=== PATIENT | male | born 1965 ===

== ENCOUNTER 2017-01-15 11:53 | Inpatient (IN) | payer MEDICAID, MEDICARE ==
[2017-01-15 11:53] VITALS: BMI 34.3
--- NOTE | 2017-01-15 12:30 | C.PDOC ---
History Of Present Illness 51 y/o male, with past history of previous vascular surgery, left above the knee amputation, bypass surgeries, presents to ED with c/o R 5th toe appearing blue-acrri in color. Patient advised to come to ER by Dr. Lee. Denies fever, chills, chest pain, SOB, nausea, vomiting, or other associated symptoms. (+) history of smoking. Time Seen by Provider: 01/15/17 12:08 Chief Complaint (Nursing): Lower Extremity Problem/Injury History Per: Patient History/Exam Limitations: no limitations Onset/Duration Of Symptoms: Days Current Symptoms Are (Timing): Still Present Recent travel outside of the [place]: No Past Medical History Reviewed: Historical Data, Nursing Documentation, Vital Signs Vital Signs: Last Vital Signs Temp 98.1 F 01/15/17 12:00 Pulse 96 H 01/15/17 12:00 Resp 20 01/15/17 12:00 BP 134/76 01/15/17 12:00 Pulse Ox 100 01/15/17 12:00 - Medical History PMH: Anxiety, Asthma, COPD, Depression (pt. drinks and smokes for depression), Diverticulitis, Gastritis, HTN, Hypercholesterolemia - [facility] Procedures DETACHMENT AT LEFT 2ND TOE, COMPLETE, OPEN APPROACH (05/08/15) DETACHMENT AT LEFT FEMORAL REGION, OPEN APPROACH (07/06/15) DETACHMENT AT LEFT FOOT, PARTIAL 1ST RAY, OPEN APPROACH (06/01/15) DETACHMENT AT LEFT FOOT, PARTIAL 2ND RAY, OPEN APPROACH (06/01/15) DETACHMENT AT LEFT FOOT, PARTIAL 3RD RAY, OPEN APPROACH (06/01/15) DETACHMENT AT LEFT FOOT, PARTIAL 4TH RAY, OPEN APPROACH (06/01/15) DETACHMENT AT LEFT FOOT, PARTIAL 5TH RAY, OPEN APPROACH (06/01/15) DILATION OF L EXT ILIAC ART WITH INTRALUM DEV, PERC APPROACH (06/01/15) DILATION OF L FEM ART WITH INTRALUM DEV, PERC APPROACH (05/08/15) DILATION OF L FOOT ART WITH INTRALUM DEV, PERC APPROACH (05/08/15) EXCISION OF L FOOT SUBCU/FASCIA, OPEN APPROACH (07/06/15) EXCISION OF SIGMOID COLON, OPEN APPROACH (11/16/15) EXTIRPATION OF MATTER FROM L EXT ILIAC ART, PERC APPROACH (06/01/15) FLUOROSCOPY OF SUPERIOR VENA CAVA, GUIDANCE (07/06/15) INSERTION OF INFUSION DEV INTO SUP VENA CAVA, PERC APPROACH (07/06/15) INTRODUCE LOCAL ANESTH IN PERIPH NRV, PLEXI, PERC (11/16/15) INTRODUCE OTH THROMBOLYTIC IN PERIPH VEIN, PERC (06/01/15) REPAIR BLADDER, OPEN APPROACH (11/16/15) Family History: States: Unknown Family Hx - Social History Hx Tobacco Use: Yes Hx Alcohol Use: Yes - Immunization History Hx Tetanus Toxoid Vaccination: Yes Hx Influenza Vaccination: Yes Hx Pneumococcal Vaccination: Yes Review Of Systems Except As Marked, All Systems Reviewed And Found Negative. Constitutional: Negative for: Fever, Chills Cardiovascular: Negative for: Chest Pain Respiratory: Negative for: Cough, Shortness of Breath, Wheezing Gastrointestinal: Negative for: Nausea, Vomiting Skin: Positive for: Other (discoloration R 5th toe). Negative for: Rash Physical Exam - Physical Exam Appears: Non-toxic, No Acute Distress Skin: Normal Color, Warm, Dry Head: Atraumatic, Normacephalic Oral Mucosa: Moist Chest: Symmetrical Cardiovascular: Rhythm Regular Respiratory: Normal Breath Sounds, No Rales, No Rhonchi, No Wheezing Gastrointestinal/Abdominal: Soft, No Tenderness, No Guarding, No Rebound Back: Normal Inspection Extremity: Normal ROM, Other (L AKA, R 5th toe discolored, tender ) Neurological/Psych: Oriented x3 ED Course And Treatment O2 Sat by Pulse Oximetry: 100 (RA) Pulse Ox Interpretation: Normal Progress Note: EKG, CxR, bloodwork. R foot x-ray ordered. 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 - Scribe Statement The provider has reviewed the documentation as recorded by the Scribe SM All medical record entries made by the Scribe were at my direction and personally dictated by me. I have reviewed the chart and agree that the record accurately reflects my personal performance of the history, physical exam, medical decision making, and the department course for this patient. I have also personally directed, reviewed, and agree with the discharge instructions and disposition.
--- NOTE | 2017-01-15 12:39 | C.PDOC ---
History Of Present Illness 51 y/o male, with past history of previous vascular surgery multiple bypass grafts to lower extremities and left above the knee amputation presents to ED with c/o R 5th toe pain and appearing blue-carri in color. Patient states he is concerned it might be becoming gangrenous. Notes he was advised to come to ER by Dr. Lee. Denies fever, chills, chest pain, SOB, nauesa, vomiting, or other associated symptoms. Notes history of smoking. Time Seen by Provider: 01/15/17 12:08 Chief Complaint (Nursing): Lower Extremity Problem/Injury History Per: Patient History/Exam Limitations: no limitations Onset/Duration Of Symptoms: Days Current Symptoms Are (Timing): Still Present Severity: Mild Recent travel outside of the [place]: No Past Medical History Reviewed: Historical Data, Nursing Documentation, Vital Signs Vital Signs: Last Vital Signs Temp 98.1 F 01/15/17 14:19 Pulse 86 01/15/17 14:19 Resp 18 01/15/17 14:19 BP 103/69 01/15/17 14:19 Pulse Ox 100 01/15/17 15:56 - Medical History PMH: Anxiety, Asthma, COPD, Depression (pt. drinks and smokes for depression), Diverticulitis, Gastritis, HTN, Hypercholesterolemia Other PMH: PVD Other Surgeries: left BKA, multiple bypass surgery lower extremities - [facility] Procedures DETACHMENT AT LEFT 2ND TOE, COMPLETE, OPEN APPROACH (05/08/15) DETACHMENT AT LEFT FEMORAL REGION, OPEN APPROACH (07/06/15) DETACHMENT AT LEFT FOOT, PARTIAL 1ST RAY, OPEN APPROACH (06/01/15) DETACHMENT AT LEFT FOOT, PARTIAL 2ND RAY, OPEN APPROACH (06/01/15) DETACHMENT AT LEFT FOOT, PARTIAL 3RD RAY, OPEN APPROACH (06/01/15) DETACHMENT AT LEFT FOOT, PARTIAL 4TH RAY, OPEN APPROACH (06/01/15) DETACHMENT AT LEFT FOOT, PARTIAL 5TH RAY, OPEN APPROACH (06/01/15) DILATION OF L EXT ILIAC ART WITH INTRALUM DEV, PERC APPROACH (06/01/15) DILATION OF L FEM ART WITH INTRALUM DEV, PERC APPROACH (05/08/15) DILATION OF L FOOT ART WITH INTRALUM DEV, PERC APPROACH (05/08/15) EXCISION OF L FOOT SUBCU/FASCIA, OPEN APPROACH (07/06/15) EXCISION OF SIGMOID COLON, OPEN APPROACH (11/16/15) EXTIRPATION OF MATTER FROM L EXT ILIAC ART, PERC APPROACH (06/01/15) FLUOROSCOPY OF SUPERIOR VENA CAVA, GUIDANCE (07/06/15) INSERTION OF INFUSION DEV INTO SUP VENA CAVA, PERC APPROACH (07/06/15) INTRODUCE LOCAL ANESTH IN PERIPH NRV, PLEXI, PERC (11/16/15) INTRODUCE OTH THROMBOLYTIC IN PERIPH VEIN, PERC (06/01/15) REPAIR BLADDER, OPEN APPROACH (11/16/15) Family History: States: Unknown Family Hx - Social History Hx Tobacco Use: Yes Hx Alcohol Use: Yes Hx Substance Use: No - Immunization History Hx Tetanus Toxoid Vaccination: Yes Hx Influenza Vaccination: Yes Hx Pneumococcal Vaccination: No Review Of Systems Except As Marked, All Systems Reviewed And Found Negative. Constitutional: Negative for: Fever, Chills Cardiovascular: Negative for: Chest Pain Respiratory: Negative for: Cough, Shortness of Breath Gastrointestinal: Negative for: Nausea, Vomiting Musculoskeletal: Positive for: Foot Pain (right) Skin: Positive for: Other (discoloration right 5th toe). Negative for: Rash Neurological: Negative for: Weakness, Numbness, Headache Physical Exam - Physical Exam Appears: Non-toxic, No Acute Distress Skin: Normal Color, Warm, Dry Head: Atraumatic, Normacephalic Chest: Symmetrical Cardiovascular: Rhythm Regular, No Murmur Respiratory: Normal Breath Sounds, No Rales, No Rhonchi, No Wheezing Gastrointestinal/Abdominal: Soft, No Tenderness Back: Normal Inspection Extremity: Normal ROM, Capillary Refill (< 2 sec.), Other (Left AKA. R 5th toe + blue appearance with tenderness.) Neurological/Psych: Oriented x3, Normal Speech, Normal Cognition Gait: Unable To Assess ED Course And Treatment - Laboratory Results Result Diagrams: 01/15/17 13:26 01/15/17 13:26 Lab Interpretation: No Acute Changes ECG: Interpreted By Me ECG Rhythm: Sinus Rhythm ECG Interpretation: No Acute Changes Rate From EC O2 Sat by Pulse Oximetry: 100 (RA) Pulse Ox Interpretation: Normal - Radiology CXR: Interpreted by Me CXR Interpretation: Yes: No Acute Disease - Other Rad No standard instances X-Ray: Interpreted by Me Interpretation: Foot x-ray: neg Progress Note: EKG, CxR, bloodwork, R foot x-ray ordered. Treated with percocet 5/325 mg PO. 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 - Scribe Statement The provider has reviewed the documentation as recorded by the Scribe SM All medical record entries made by the Scribe were at my direction and personally dictated by me. I have reviewed the chart and agree that the record accurately reflects my personal performance of the history, physical exam, medical decision making, and the department course for this patient. I have also personally directed, reviewed, and agree with the discharge instructions and disposition. Decision To Admit - Pt Status Changed To: Hospital Disposition Of: Inpatient - Admit Certification Admit to Inpatient:: After my assessment, the patient will require hospitalization for at least two midnights. This is because of the severity of symptoms shown, intensity of services needed, and/or the medical risk in this patient being treated as an outpatient. - InPatient: Physician Admission Certification: I certify that this patient requires 2 or more midnights of care for the following reason:: PVD. Gangrene right foot - . Bed Request Type: Regular Admitting Physician: Jagdeep Lee Patient Diagnosis: Diabetes mellitus, PAD (peripheral artery disease), Gangrene of toe of right foot
--- NOTE | 2017-01-15 13:26 | RAD ---
HISTORY: SOB COMPARISON: CTA chest performed 08/17/15 TECHNIQUE: Chest PA and lateral FINDINGS: LUNGS: No focal consolidation. Please note that chest x-ray has limited sensitivity for the detection of pulmonary masses. PLEURA: No significant pleural effusion identified. No definite pneumothorax . CARDIOVASCULAR: The cardiomediastinal silhouette appears within normal limits of size. OSSEOUS STRUCTURES: Degenerative changes of the spine. VISUALIZED UPPER ABDOMEN: Unremarkable. OTHER FINDINGS: None. IMPRESSION: No focal consolidation, significant pleural effusion, or definite pneumothorax identified.
[2017-01-15] MEDS ORDERED: Oxycodone/Acetaminophen 5/325 mg Tab PO STA (13:27)
[2017-01-15 13:32] LABS: BASO # 0.1 K/uL (0.0-0.2); BASO % 0.7 % (0.0-2.0); EOS # 0.1 K/uL (0.0-0.7); EOS % 1.4 % (0.0-4.0); HEMATOCRIT 42.7 % (35.0-51.0); LYMPH # 1.8 K/uL (1.0-4.3); LYMPH % 19.8 % (20.0-40.0); MEAN CELL VOLUME 98.9 fL (80.0-94.0); MEAN CORPUSCULAR HGB CONC 34.4 g/dL (33.0-37.0); MEAN PLATELET VOLUME 8.3 fL (7.2-11.7); MONO # 0.7 K/uL (0.0-0.8); MONO % 7.8 % (0.0-10.0); RED CELL DISTRIBUTION WIDTH 15.5 % (11.5-14.5)
[2017-01-15 13:48] LABS: URINE BILIRUBIN NEGATIVE (NEGATIVE); URINE BLOOD NEGATIVE (NEGATIVE); URINE COLOR Yellow (YELLOW); URINE GLUCOSE (UA) NORMAL (Normal); URINE KETONE NEGATIVE (NEGATIVE); URINE LEUKOCYTE ESTERASE 1+ Leu/uL (Negative); URINE PROTEIN NEGATIVE (NEGATIVE); URINE UROBILINOGEN NORMAL mg/dL (0.2-1.0)
[2017-01-15] MEDS ORDERED: Oxycodone/Acetaminophen 5/325 mg Tab ONE (13:48)
[2017-01-15 13:51] LABS: ALKALINE PHOSPHATASE 112 U/L (38-126); ALT/SGPT 36 U/L (21-72); AST/SGOT 24 U/L (17-59); BILIRUBIN,TOTAL 0.4 mg/dL (0.2-1.3); BLOOD UREA NITROGEN 3 mg/dL (9-20); CALCIUM 7.3 mg/dl (8.6-10.4); CARBON DIOXIDE 27 mmol/L (22-30); CHLORIDE 100 mmol/L (98-107); GFR AFRICAN-AMERICAN > 60; GLUCOSE,RANDOM 158 mg/dL (75-110); POTASSIUM 3.5 mmol/L (3.6-5.2); SODIUM 135 mmol/L (132-148); TOTAL PROTEIN 7.1 g/dL (6.3-8.3)
--- NOTE | 2017-01-15 13:53 | RAD ---
PROCEDURE: Right Foot Radiographs. HISTORY: pain COMPARISON: None available. FINDINGS: BONES: Osseous demineralization. No acute displaced fracture. JOINTS: No dislocation. SOFT TISSUES: Dense vascular calcifications. No evidence of radiopaque foreign body. OTHER FINDINGS: None. IMPRESSION: No acute displaced fracture, dislocation, or significant joint effusion identified. If symptoms persist, or if there is continued clinical concern, x-ray follow-up in 7-10 days should be considered.
[2017-01-15 13:56] LABS: ALB/GLOB RATIO 0.6 (1.0-2.1)
[2017-01-15 14:29] LABS: URINE BACTERIA MANY (<OCC); WBC URINE 20 /hpf (0-5)
[2017-01-15] MEDS ORDERED: cefTRIAXone IV 1 gm in Dextros 50 ML IV ONE (14:30)
--- NOTE | 2017-01-15 16:09 | CP.PCM.CON ---
History of Present Illness - History of Present Illness History of Present Illness: Vascular Surgery Consult Note. Dr. Fernández Re: Right foot non-healing wound 51yo M with extensive PVD history came to the ED due to a discolored right 5th toe. Patient stated he noticed worsening pain in his right foot two weeks ago and then noticed discoloration of his right 5th toe 5 days ago. He describes the toe as "black/blue and he pulled off his skin" and noted worsening pain. Patient also noticed swelling and numbness in his foot, slowly worsening. Patient denied trauma to the area. Denies fever, chills, nausea, or vomiting. PMHx: Anxiety, asthma/COPD, PVD, DM, HTN, HLD PSHx: Left AKA in 07/2015, Ex Lap low anterior bowel resection and closure of bladder fistula in 11/2015, Fem-Fem bypass 2011 at [facility] [place] Social Hx: smokes 1-1.5 packs per day for 40 years, alcohol 1 pt of vodka per day, smokes marijuana occasionally. Lives with brother NKDA Review of Systems - Review of Systems All systems: reviewed and no additional remarkable complaints except (as per HPI ) - Constitutional Constitutional: absent: Chills, Fever - Cardiovascular Cardiovascular: absent: Chest Pain, Dyspnea - Gastrointestinal Gastrointestinal: absent: Abdominal Pain, Nausea, Vomiting - Musculoskeletal Additional comments: "Phantom-limb" pain of left leg. Right lower extremity pain and swelling Past Patient History - Infectious Disease Hx of Infectious Diseases: None - Past Medical History & Family History Past Medical History?: Yes Past Family History: Reviewed and not pertinent - Past Social History Smoking Status: Heavy Smoker > 10 Cigarettes Daily Alcohol: Other (1 pint of vodka per day) Drugs: Denies Home Situation {Lives}: With Family (lives in apartment with brother) - CARDIAC Hx Hypercholesterolemia: Yes Hx Hypertension: Yes - PULMONARY Hx Asthma: Yes Hx Chronic Obstructive Pulmonary Disease (COPD): Yes - ENDOCRINE/METABOLIC Hx Endocrine Disorders: Yes Hx Diabetes Mellitus Type 1: Yes - INTEGUMENTARY Hx Dermatological Problems: Yes Other/Comment: PT HAS BROWN SPOTS ON ARMS AND BACK 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 - MUSCULOSKELETAL/RHEUMATOLOGICAL Hx Musculoskeletal Disorders: Yes Hx Falls: Yes Other/Comment: LT. BELOW KNEE AMPUTEE - GASTROINTESTINAL Hx Diverticulitis: Yes Hx Gastritis: Yes - GENITOURINARY/GYNECOLOGICAL Hx Genitourinary Disorders: Yes Hx Urinary Tract Infection: Yes Other/Comment: PT STATES HE HAS BROWN URINE AND SOME FECAL MATERIAL IN HIS URINE. - PSYCHIATRIC Hx Anxiety: Yes Hx Depression: Yes (pt. drinks and smokes for depression) Hx Substance Use: No - SURGICAL HISTORY Hx Surgeries: Yes Hx Amputation: Yes (LEFT BKA) Hx Angiogram: Yes Hx Cardiac Catheterization: Yes Hx Femoral-Popliteal Bypass Graft: Yes (X 3) Hx Vascular Surgery: Yes Other/Comment: Vascular bypass surgery femoral bilateral 2011,LT. BELOW KNEE AMPUTATION - ANESTHESIA Hx Anesthesia: Yes Hx Anesthesia Reactions: No Hx Malignant Hyperthermia: No Meds Allergies/Adverse Reactions: Allergies Allergy/AdvReac Type Severity Reaction Status Date / Time No Known Allergies Allergy Verified 01/15/17 12:37 Physical Exam - Constitutional Appears: Non-toxic, No Acute Distress, Older Than Stated Age - Head Exam Head Exam: ATRAUMATIC, NORMOCEPHALIC - Eye Exam Eye Exam: EOMI, Normal appearance - ENT Exam ENT Exam: Mucous Membranes Dry - Respiratory Exam Respiratory Exam: NORMAL BREATHING PATTERN. absent: Accessory Muscle Use, Chest Wall Tenderness, Respiratory Distress - Cardiovascular Exam Cardiovascular Exam: RRR, +S1, +S2. absent: Irregular Rhythm, +S4 - GI/Abdominal Exam GI & Abdominal Exam: Soft. absent: Distended, Firm, Rebound, Rigid, Tenderness Additional comments: Well healed midline scar from umbilicus to suprapubic region - Extremities Exam Extremities exam: Positive for: tenderness. Negative for: calf tenderness Additional comments: Left AKA with compression stocking in place. Right foot warm to touch with slight non-pitting edema appreciated. Discoloration to plantar surface and tip of 5th metatarsal. Decreased sensation along the dorsal aspect of the right foot. No induration, no active drainage noted - Back Exam Back exam: rash noted. absent: CVA tenderness (L), CVA tenderness (R), tenderness Additional comments: diffuse rash on back and right upper thigh (patient uses triamcinolone) - Neurological Exam Neurological exam: Alert, Oriented x3 - Psychiatric Exam Psychiatric exam: Normal Affect, Normal Mood - Skin Skin Exam: Dry, Warm Results - Vital Signs Recent Vital Signs: Last Vital Signs Temp 98.1 F 01/15/17 14:19 Pulse 86 01/15/17 14:19 Resp 18 01/15/17 14:19 BP 103/69 01/15/17 14:19 Pulse Ox 100 01/15/17 15:56 - Labs Result Diagrams: 01/15/17 13:26 01/15/17 13:26 Labs: Laboratory Results - last 24 hr 01/15/17 01/15/17 01/15/17 13:26 13:26 13:26 WBC 9.0 RBC 4.32 L Hgb 14.7 Hct 42.7 MCV 98.9 H D MCH 34.0 H MCHC 34.4 RDW 15.5 H Plt Count 187 MPV 8.3 Neut % (Auto) 70.3 Lymph % (Auto) 19.8 L [place] % (Auto) 7.8 Eos % (Auto) 1.4 Baso % (Auto) 0.7 Neut # 6.3 Lymph # 1.8 [place] # 0.7 Eos # 0.1 Baso # 0.1 Sodium 135 Potassium 3.5 L Chloride 100 Carbon Dioxide 27 Anion Gap 12 BUN 3 L Creatinine 0.4 L Est GFR ( Amer) > 60 Est GFR (Non-Af Amer) > 60 Random Glucose 158 H Calcium 7.3 L Total Bilirubin 0.4 AST 24 ALT 36 Alkaline Phosphatase 112 Total Protein 7.1 Albumin 2.7 L Globulin 4.3 H Albumin/Globulin Ratio 0.6 L Urine Color Yellow Urine Clarity Clear Urine pH 6.0 Ur Specific [place] 1.009 Urine Protein Negative Urine Glucose (UA) Normal Urine Ketones Negative Urine Blood Negative Urine Nitrate Positive H Urine Bilirubin Negative Urine Urobilinogen Normal Ur Leukocyte Esterase 1+ H Urine WBC (Auto) 20 H Urine Bacteria Many H Assessment & Plan - Assessment and Plan (Free Text) Assessment: 51yo M with severe PVD here with Right 5th toe gangrene - Recommend CTA aorta with iliofem runoff - elevation of right foot - Replace right foot dressing as needed: Dry gauze - continue IV Abx - Pain management Further recs as per Dr. Pradeep Sevilla PGY1 surgery pager: [phone]
[2017-01-15] MEDS ORDERED: Iodixanol 320 mg/ml 150 ml Bottle IV ONE (17:56)
[2017-01-15] MEDS ORDERED: Ipratropium 17 mcg/puff-200 puff/12.5 gm HFA Inh IH PRN (19:56)
[2017-01-15] MEDS: Oxycodone/Acetaminophen 5/325 mg Tab PO PRN (21:23)
[2017-01-15] MEDS: (Lantus) Insulin Glargine, Recombinant SC SCH (21:26)
[2017-01-15] MEDS: (Novolog) Insulin Aspart, Recombinant 100 u/ml 10 ml vial SC SCH (21:38)
--- NOTE | 2017-01-15 23:03 | CP.PCM.HP ---
History of Present Illness - History of Present Illness History of Present Illness: cc: Right foot non-healing wound HPI: 51yo M with extensive PVD history came to the ED due to a discolored right 5th toe. Patient stated he noticed worsening pain in his right foot two weeks ago and then noticed discoloration of his right 5th toe 5 days ago. He describes the toe as "black/blue and he pulled off his skin" and noted worsening pain. Patient also noticed swelling and numbness in his foot, slowly worsening. Patient denied trauma to the area. Denies fever, chills, nausea, or vomiting. PMHx: Anxiety, asthma/COPD, PVD, DM, HTN, HLD PSHx: Left AKA in 07/2015, Ex Lap low anterior bowel resection and closure of bladder fistula in 11/2015, [place] [facility] [place] Hx: smokes 1-1.5 packs per day for 40 years, alcohol 1 pt of vodka per day, smokes marijuana occasionally. Lives with brother NKDA Present on Admission - Present on Admission Any Indicators Present on Admission: Yes Past Patient History - Infectious Disease Hx of Infectious Diseases: None - Past Medical History & Family History Past Medical History?: Yes - Past Social History Smoking Status: Heavy Smoker > 10 Cigarettes Daily - CARDIAC Hx Hypercholesterolemia: Yes Hx Hypertension: Yes - PULMONARY Hx Asthma: Yes Hx Chronic Obstructive Pulmonary Disease (COPD): Yes - ENDOCRINE/METABOLIC Hx Endocrine Disorders: Yes Hx Diabetes Mellitus Type 1: Yes - INTEGUMENTARY Hx Dermatological Problems: Yes Other/Comment: PT HAS BROWN SPOTS ON ARMS AND BACK 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 - MUSCULOSKELETAL/RHEUMATOLOGICAL Hx Falls: No - GASTROINTESTINAL Hx Diverticulitis: Yes Hx Gastritis: Yes - GENITOURINARY/GYNECOLOGICAL Hx Genitourinary Disorders: Yes Hx Urinary Tract Infection: Yes Other/Comment: PT STATES HE HAS BROWN URINE AND SOME FECAL MATERIAL IN HIS URINE. - PSYCHIATRIC Hx Substance Use: No - SURGICAL HISTORY Hx Surgeries: Yes Hx Amputation: Yes (LEFT BKA) Hx Angiogram: Yes Hx Cardiac Catheterization: Yes Hx Femoral-Popliteal Bypass Graft: Yes (X 3) Hx Vascular Surgery: Yes Other/Comment: Vascular bypass surgery femoral bilateral 2011,LT. BELOW KNEE AMPUTATION - ANESTHESIA Hx Anesthesia: Yes Hx Anesthesia Reactions: No Hx Malignant Hyperthermia: No Meds Allergies/Adverse Reactions: Allergies Allergy/AdvReac Type Severity Reaction Status Date / Time No Known Allergies Allergy Verified 01/15/17 12:37 Physical Exam - Constitutional Appears: No Acute Distress - Head Exam Head Exam: ATRAUMATIC, NORMAL INSPECTION, NORMOCEPHALIC - Eye Exam Eye Exam: EOMI, Normal appearance, PERRL Pupil Exam: NORMAL ACCOMODATION, PERRL - Respiratory Exam Respiratory Exam: Clear to Auscultation Bilateral, NORMAL BREATHING PATTERN - Cardiovascular Exam Cardiovascular Exam: REGULAR RHYTHM - GI/Abdominal Exam GI & Abdominal Exam: Normal Bowel Sounds, Soft. absent: Tenderness - Extremities Exam Additional comments: left AKA stump is clean Left AKA with compression stocking in place. Right foot warm to touch with slight non-pitting edema appreciated. Discoloration to plantar surface and tip of 5th metatarsal. Decreased sensation along the dorsal aspect of the right foot. No induration, no active drainage noted Results - Vital Signs Recent Vital Signs: Last Vital Signs Temp 98.8 F 01/15/17 19:00 Pulse 83 01/15/17 19:00 Resp 20 01/15/17 19:00 BP 138/96 H 01/15/17 19:00 Pulse Ox 100 01/15/17 19:49 - Labs Result Diagrams: 01/16/17 19:55 01/16/17 19:55 Labs: Laboratory Results - last 24 hr 01/15/17 01/15/17 01/15/17 13:26 13:26 13:26 WBC 9.0 RBC 4.32 L Hgb 14.7 Hct 42.7 MCV 98.9 H D MCH 34.0 H MCHC 34.4 RDW 15.5 H Plt Count 187 MPV 8.3 Neut % (Auto) 70.3 Lymph % (Auto) 19.8 L [place] % (Auto) 7.8 Eos % (Auto) 1.4 Baso % (Auto) 0.7 Neut # 6.3 Lymph # 1.8 [place] # 0.7 Eos # 0.1 Baso # 0.1 Sodium 135 Potassium 3.5 L Chloride 100 Carbon Dioxide 27 Anion Gap 12 BUN 3 L Creatinine 0.4 L Est GFR ( Amer) > 60 Est GFR (Non-Af Amer) > 60 POC Glucose (mg/dL) Random Glucose 158 H Calcium 7.3 L Total Bilirubin 0.4 AST 24 ALT 36 Alkaline Phosphatase 112 Total Protein 7.1 Albumin 2.7 L Globulin 4.3 H Albumin/Globulin Ratio 0.6 L Urine Color Yellow Urine Clarity Clear Urine pH 6.0 Ur Specific [place] 1.009 Urine Protein Negative Urine Glucose (UA) Normal Urine Ketones Negative Urine Blood Negative Urine Nitrate Positive H Urine Bilirubin Negative Urine Urobilinogen Normal Ur Leukocyte Esterase 1+ H Urine WBC (Auto) 20 H Urine Bacteria Many H 01/15/17 21:09 WBC RBC Hgb Hct MCV MCH MCHC RDW Plt Count MPV Neut % (Auto) Lymph % (Auto) [place] % (Auto) Eos % (Auto) Baso % (Auto) Neut # Lymph # [place] # Eos # Baso # Sodium Potassium Chloride Carbon Dioxide Anion Gap BUN Creatinine Est GFR ( Amer) Est GFR (Non-Af Amer) POC Glucose (mg/dL) 142 H Random Glucose Calcium Total Bilirubin AST ALT Alkaline Phosphatase Total Protein Albumin Globulin Albumin/Globulin Ratio Urine Color Urine Clarity Urine pH Ur Specific [place] Urine Protein Urine Glucose (UA) Urine Ketones Urine Blood Urine Nitrate Urine Bilirubin Urine Urobilinogen Ur Leukocyte Esterase Urine WBC (Auto) Urine Bacteria Assessment & Plan (1) Gangrene of toe of right foot Assessment and Plan: 51yo M with severe PVD here with Right 5th toe gangrene - Recommend CTA aorta with iliofem runoff - elevation of right foot - Replace right foot dressing as needed: Dry gauze - continue IV Abx - Pain management Status: Acute (2) Diabetes mellitus Status: Chronic (3) PAD (peripheral artery disease) Status: Chronic
[2017-01-16] MEDS: Oxycodone/Acetaminophen 5/325 mg Tab PO PRN ×4 (02:35→19:21)
[2017-01-16] MEDS: (Novolog) Insulin Aspart, Recombinant 100 u/ml 10 ml vial SC SCH ×4 (07:30→22:53)
[2017-01-16] MEDS ORDERED: Oxycodone/Acetaminophen 5/325 mg Tab PO PRN (09:19)
--- NOTE | 2017-01-16 09:25 | CP.PCM.PN ---
Subjective - Date & Time of Evaluation Date of Evaluation: 01/16/17 Time of Evaluation: 07:00 - Subjective Subjective: Surgery Progress note. Dr. Fernández. Pt seen and examined at bedside. no acute events overnight. Patient report worsening pain to right lower extremity. No N/V/D. no Abd pain. no F/C. No new complaints. Objective - Vital Signs/Intake and Output Vital Signs (last 24 hours): Temp Pulse Resp BP Pulse Ox 97.7 F 72 20 101/68 96 01/16/17 07:24 01/16/17 07:24 01/16/17 07:24 01/16/17 07:24 01/16/17 07:24 Intake and Output: 01/16/17 01/16/17 06:59 18:59 Intake Total 1000 Balance 1000 - Medications Medications: Current Medications Carvedilol (Coreg) 25 mg PO BID [facility] Clopidogrel Bisulfate (Plavix) 75 mg PO DAILY [facility] Enoxaparin Sodium (Lovenox) 40 mg SC DAILY [facility] Gabapentin (Neurontin) 300 mg PO TID [facility] Ceftriaxone Sodium (Rocephin Iv 1 Gm Duplex) 50 mls @ 100 mls/hr IVPB Q24H [facility] Insulin Aspart (Novolog) 0 unit SC ACHS [facility] PRN Reason: Protocol Last Admin: 01/15/17 21:38 Dose: Not Given Insulin Glargine (Lantus) 35 unit SC Q12 [facility] Last Admin: 01/15/17 21:26 Dose: 35 units Ipratropium [place] (Atrovent Hfa) 2 puff IH RQ6 PRN PRN Reason: Shortness of Breath Lisinopril (Zestril) 5 mg PO DAILY [facility] Multivitamins/Minerals (Therapeutic-M Tab) 1 tab PO DAILY [facility] Oxycodone/Acetaminophen (Percocet 5/325 Mg Tab) 1 tab PO Q4H PRN PRN Reason: Pain, severe (8-10) Stop: 01/18/17 19:57 Last Admin: 01/16/17 02:35 Dose: 1 tab Rosuvastatin Calcium (Crestor) 5 mg PO HS [facility] Last Admin: 01/15/17 21:25 Dose: 5 mg Sennosides (Senokot Tab) 8.6 mg PO DAILY [facility] Thiamine HCl (Vitamin B1 Tab) 100 mg PO DAILY [facility] - Labs Labs: 01/15/17 13:26 01/15/17 13:26 - Constitutional Appears: Well, No Acute Distress - Head Exam Head Exam: ATRAUMATIC, NORMAL INSPECTION, NORMOCEPHALIC - Eye Exam Eye Exam: EOMI - ENT Exam ENT Exam: Mucous Membranes Moist - Respiratory Exam Respiratory Exam: NORMAL BREATHING PATTERN. absent: Accessory Muscle Use, Respiratory Distress - GI/Abdominal Exam GI & Abdominal Exam: Soft. absent: Distended, Firm, Guarding, Rigid, Tenderness - Extremities Exam Additional comments: Right lower extremity with discolored 5th digit. Foul odor. - Neurological Exam Neurological Exam: Alert, Awake, Oriented x3 - Psychiatric Exam Psychiatric exam: Normal Affect, Normal Mood - Skin Skin Exam: Dry, Intact, Normal Color, Warm Assessment and Plan - Assessment and Plan (Free Text) Assessment: 51yo M with severe PVD here with Right 5th toe gangrene - Replace dressings as needed - f/u CTA - elevation of right foot - continue IV Abx - Pain management Further recs as per Dr. Pradeep Sevilla PGY1 surgery pager: [phone]
[2017-01-16] MEDS: Enoxaparin 40 mg Syringe SC SCH (09:45)
[2017-01-16] MEDS: Multivitamin With Minerals Tab PO SCH (09:50)
[2017-01-16] MEDS: (Lantus) Insulin Glargine, Recombinant SC SCH ×2 (10:00→21:32)
[2017-01-16] MEDS: cefTRIAXone IV 1 gm in Dextros 50 ML IVPB SCH (10:13)
[2017-01-16] MEDS ORDERED: Potassium Chloride 20 mEq ER Tab PO ONE (12:00)
--- NOTE | 2017-01-16 12:33 | CP.PCM.CON ---
History of Present Illness - History of Present Illness History of Present Illness: 51y/o male well know to podiatry service seen at bedside for right foot discolored right 5th toe. Pt has extensive history of PVD and subsaquent left above knee ampuation. Patient states he noticed worsening pain in his right foot two weeks ago and then noticed discoloration of his right 5th toe 5 days ago. He describes the toe as "black/blue and he pulled off his skin" and noted worsening pain. He noted in last 2 days a hardened area of skin appeared on bottom of 5th digit. Upon "picking at it" 5th digit skin peeled, revealing larger area of 5th digit discoloration. This change prompted the patient to seek medical attention. Patient also noticed swelling and numbness in his foot , slowly worsening. Patient denied trauma to the area. Denies fever, chills, nausea, or vomiting. PMHx: Anxiety, asthma/COPD, PVD, DM, HTN, HLD PSHx: Left AKA in 07/2015, Ex Lap low anterior bowel resection and closure of bladder fistula in 11/2015, [place] [facility] [place] Hx: smokes 1-1.5 packs per day for 40 years, alcohol 1 pt of vodka per day, smokes marijuana occasionally. 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 - MUSCULOSKELETAL/RHEUMATOLOGICAL Hx Falls: No - GASTROINTESTINAL Hx Diverticulitis: Yes Hx Gastritis: Yes - GENITOURINARY/GYNECOLOGICAL Hx Genitourinary Disorders: Yes Hx Urinary Tract Infection: Yes Other/Comment: PT STATES HE HAS BROWN URINE AND SOME FECAL MATERIAL IN HIS URINE. - PSYCHIATRIC Hx Substance Use: No - SURGICAL HISTORY Hx Surgeries: Yes Hx Amputation: Yes (LEFT BKA) Hx Angiogram: Yes Hx Cardiac Catheterization: Yes Hx Femoral-Popliteal Bypass Graft: Yes (X 3) Hx Vascular Surgery: Yes Other/Comment: Vascular bypass surgery femoral bilateral 2012,LT. BELOW KNEE AMPUTATION - ANESTHESIA Hx Anesthesia: Yes Hx Anesthesia Reactions: No Hx Malignant Hyperthermia: No Meds Allergies/Adverse Reactions: Allergies Allergy/AdvReac Type Severity Reaction Status Date / Time No Known Allergies Allergy Verified 01/15/17 12:37 - Medications Medications: Current Medications Carvedilol (Coreg) 25 mg PO BID [facility] Last Admin: 01/16/17 09:44 Dose: 25 mg Clopidogrel Bisulfate (Plavix) 75 mg PO DAILY [facility] Last Admin: 01/16/17 09:50 Dose: Not Given Enoxaparin Sodium (Lovenox) 40 mg SC DAILY [facility] Last Admin: 01/16/17 09:45 Dose: 40 mg Gabapentin (Neurontin) 300 mg PO TID [facility] Last Admin: 01/16/17 09:45 Dose: 300 mg Ceftriaxone Sodium (Rocephin Iv 1 Gm Duplex) 50 mls @ 100 mls/hr IVPB Q24H [facility] Last Admin: 01/16/17 10:13 Dose: 100 mls/hr Insulin Aspart (Novolog) 0 unit SC ACHS [facility] PRN Reason: Protocol Last Admin: 01/16/17 07:30 Dose: Not Given Insulin Glargine (Lantus) 35 unit SC Q12 [facility] Last Admin: 01/15/17 21:26 Dose: 35 units Ipratropium [place] (Atrovent Hfa) 2 puff IH RQ6 PRN PRN Reason: Shortness of Breath Lisinopril (Zestril) 5 mg PO DAILY [facility] Last Admin: 01/16/17 09:50 Dose: 5 mg Multivitamins/Minerals (Therapeutic-M Tab) 1 tab PO DAILY [facility] Last Admin: 01/16/17 09:50 Dose: 1 tab Oxycodone/Acetaminophen (Percocet 5/325 Mg Tab) 2 tab PO Q4H PRN PRN Reason: Pain, severe (8-10) Stop: 01/19/17 09:19 Last Admin: 01/16/17 09:46 Dose: 2 tab Oxycodone/Acetaminophen (Percocet 5/325 Mg Tab) 1 tab PO Q4H PRN PRN Reason: Pain, moderate (4-7) Stop: 01/18/17 19:57 Rosuvastatin Calcium (Crestor) 5 mg PO HS [facility] Last Admin: 01/15/17 21:25 Dose: 5 mg Sennosides (Senokot Tab) 8.6 mg PO DAILY [facility] Last Admin: 01/16/17 09:50 Dose: 8.6 mg Thiamine HCl (Vitamin B1 Tab) 100 mg PO DAILY [facility] Last Admin: 01/16/17 09:50 Dose: 100 mg Physical Exam - Constitutional Appears: Well, Non-toxic, No Acute Distress - Extremities Exam Additional comments: Left leg above knee amputation noted; stable. Right lower extremity focused. Dressings, clean, dry, and intact. VASC: DP and PT pulses non-palpable. Temperature runs warm to warm proximal to distal, within normal limits. Absent capillary digital refill time to 5th digit , remaining 4 digits capillary refill time <3 seconds. NEURO: Protective sensation grossly diminshed along lateral foot. DERM: Right 5th digit degloved superfical skin of 5th digit with localized mix of dark ischemic discoloration and erythematous dermal tissue base. Minor serous exudate noted. [place]axa-wound erythema noted extending to lateral margin of 5th metatarsal-phalangeal joint. No other open wounds, lesion, or macerations noted. MUSK: No tenderness to deep palpation noted. No gross deformities noted. Pedal muscle strength graded 5/5 in all 4 major muscle groups. - Neurological Exam Neurological exam: Alert, Oriented x3 - Psychiatric Exam Psychiatric exam: Normal Affect, Normal Mood Results - Vital Signs Recent Vital Signs: Last Vital Signs Temp 97.7 F 01/16/17 07:24 Pulse 72 01/16/17 07:24 Resp 20 01/16/17 07:24 BP 101/68 01/16/17 09:44 Pulse Ox 96 01/16/17 07:24 - Labs Result Diagrams: 01/15/17 13:26 01/15/17 13:26 Labs: Laboratory Results - last 24 hr 01/15/17 01/15/17 01/15/17 13:26 13:26 13:26 WBC 9.0 RBC 4.32 L Hgb 14.7 Hct 42.7 MCV 98.9 H D MCH 34.0 H MCHC 34.4 RDW 15.5 H Plt Count 187 MPV 8.3 Neut % (Auto) 70.3 Lymph % (Auto) 19.8 L [place] % (Auto) 7.8 Eos % (Auto) 1.4 Baso % (Auto) 0.7 Neut # 6.3 Lymph # 1.8 [place] # 0.7 Eos # 0.1 Baso # 0.1 Sodium 135 Potassium 3.5 L Chloride 100 Carbon Dioxide 27 Anion Gap 12 BUN 3 L Creatinine 0.4 L Est GFR ( Amer) > 60 Est GFR (Non-Af Amer) > 60 POC Glucose (mg/dL) Random Glucose 158 H Calcium 7.3 L Total Bilirubin 0.4 AST 24 ALT 36 Alkaline Phosphatase 112 Total Protein 7.1 Albumin 2.7 L Globulin 4.3 H Albumin/Globulin Ratio 0.6 L Urine Color Yellow Urine Clarity Clear Urine pH 6.0 Ur Specific [place] 1.009 Urine Protein Negative Urine Glucose (UA) Normal Urine Ketones Negative Urine Blood Negative Urine Nitrate Positive H Urine Bilirubin Negative Urine Urobilinogen Normal Ur Leukocyte Esterase 1+ H Urine WBC (Auto) 20 H Urine Bacteria Many H 01/15/17 01/16/17 01/16/17 21:09 07:13 07:39 WBC RBC Hgb Hct MCV MCH MCHC RDW Plt Count MPV Neut % (Auto) Lymph % (Auto) [place] % (Auto) Eos % (Auto) Baso % (Auto) Neut # Lymph # [place] # Eos # Baso # Sodium Potassium Chloride Carbon Dioxide Anion Gap BUN Creatinine Est GFR ( Amer) Est GFR (Non-Af Amer) POC Glucose (mg/dL) 142 H 60 L 69 Random Glucose Calcium Total Bilirubin AST ALT Alkaline Phosphatase Total Protein Albumin Globulin Albumin/Globulin Ratio Urine Color Urine Clarity Urine pH Ur Specific [place] Urine Protein Urine Glucose (UA) Urine Ketones Urine Blood Urine Nitrate Urine Bilirubin Urine Urobilinogen Ur Leukocyte Esterase Urine WBC (Auto) Urine Bacteria 01/16/17 01/16/17 07:57 10:59 WBC RBC Hgb Hct MCV MCH MCHC RDW Plt Count MPV Neut % (Auto) Lymph % (Auto) [place] % (Auto) Eos % (Auto) Baso % (Auto) Neut # Lymph # [place] # Eos # Baso # Sodium Potassium Chloride Carbon Dioxide Anion Gap BUN Creatinine Est GFR ( Amer) Est GFR (Non-Af Amer) POC Glucose (mg/dL) 108 138 H Random Glucose Calcium Total Bilirubin AST ALT Alkaline Phosphatase Total Protein Albumin Globulin Albumin/Globulin Ratio Urine Color Urine Clarity Urine pH Ur Specific [place] Urine Protein Urine Glucose (UA) Urine Ketones Urine Blood Urine Nitrate Urine Bilirubin Urine Urobilinogen Ur Leukocyte Esterase Urine WBC (Auto) Urine Bacteria Assessment & Plan - Assessment and Plan (Free Text) Assessment: 51 year old male with Right 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 Plan: Pt was evaluated and treated. Discussed with attending, Dr. Malik. Chart, labs, and vitals reviewed. Afebrile, absent leukocytosis. Ischemia and dry gangrene changes noted. Local wound care. Dressed affected site with betadine, and DSD. Continue managing lower extremity pain with analgesics. Awaiting results to vascular studies (Arterial duplex, Venous duplex, Abdominal Angio) - Awaiting vascular specialist, Dr. Fernández's, evaluation and recommendations. Podiatry will follow while inhouse. - Date & Time Date: 01/16/17 Time: 12:40
--- NOTE | 2017-01-16 13:40 | CT ---
PROCEDURE: CT Angiography Abdomen, Pelvis and Lower Extremity with Contrast HISTORY: Right leg pain, hx of PVD COMPARISON: None. TECHNIQUE: Technique: CT angiography of the abdomen, pelvis and bilateral lower extremities performed in the arterial phase of enhancement. Coronal and sagittal reformats, and well as rotating MIP images of the vessels generated at the workstation. Intravenous contrast dose: 150 ml visipaque 320 Radiation dose: Total exam DLP = 1602.75 MGy-cm. This CT exam was performed using one or more of the following dose reduction techniques: Automated exposure control, adjustment of the mA and/or kV according to patient size, and/or use of iterative reconstruction technique. FINDINGS: CT ANGIOGRAPHY: ABDOMINAL AORTA:: Moderate soft and calcific plaque throughout the abdominal aorta with 30 percent luminal narrowing in the infrarenal aorta. MAJOR AORTIC BRANCHES: Celiac [place]: Unremarkable. Superior mesenteric artery: Unremarkable. Inferior mesenteric artery: Unremarkable. Renal arteries: Unremarkable. PELVIC ARTERIES: Right Common Iliac: Unremarkable. Right External Iliac: Mild stenosis of the proximal external iliac artery. Right Internal Iliac: Mild calcific plaque Left Common Iliac: Unremarkable. 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 Left Internal Iliac: Mild calcific plaque otherwise patent. RIGHT LOWER EXTREMITY ARTERIES: Right Common Femoral: Occluded fem-fem bypass graft. Moderate stenosis of the mid common femoral artery with moderate calcific plaque. Right Superficial Femoral: Has diffuse moderate calcific plaque throughout with multiple areas of moderate to severe stenosis throughout the SFA. Right Profunda Femoris: Unremarkable. Right Popliteal:Mild calcific plaque in otherwise unremarkable. Right Anterior Tibial: Anterior tibial is heavily calcified and believed to be patent. Right Tibioperoneal Trunk: Unremarkable. Right Posterior Tibial: Occluded Right Peroneal: Patent. Right dorsalis pedis : Unremarkable. LEFT LOWER EXTREMITY ARTERIES: Left Common Femoral: Occluded stent Left Superficial Femoral: Occluded stent Left Profunda Femoris: Fills via collaterals Above knee amputation. NON-ANGIOGRAPHIC ASPECT OF THE EXAM: LOWER THORAX: Unremarkable. LIVER: Unremarkable. No gross lesion or ductal dilatation. GALLBLADDER AND BILE DUCTS: Unremarkable. PANCREAS: Unremarkable. No gross lesion or ductal dilatation. SPLEEN: Unremarkable. ADRENALS: Unremarkable. No mass. KIDNEYS AND URETERS: Unremarkable. No hydronephrosis. No solid mass. STOMACH AND BOWEL: Unremarkable. No obstruction. No gross mural thickening. APPENDIX: Normal appendix. PERITONEUM: Unremarkable. No free fluid. No free air. LYMPH NODES: Unremarkable. No enlarged lymph nodes. BLADDER: Unremarkable. REPRODUCTIVE: Unremarkable. BONES: No acute fracture. OTHER FINDINGS: None. IMPRESSION: CT ANGIOGRAM ABDOMEN/PELVIS: 1. Moderate plaque throughout the abdominal aorta with 30 percent luminal narrowing in the infrarenal aorta. 2. Occluded left external iliac artery stent and common femoral artery. Left AKA. 3. Mild stenosis of the proximal right external iliac artery. RIGHT LOWER EXTREMITY CT ANGIOGRAM: 1. OCCLUDED FEM-FEM BYPASS GRAFT 2. Moderate stenosis of the mid common femoral artery with moderate calcific plaque. 3. Diffuse calcific plaque throughout the superficial femoral artery with multiple areas of mild to severe stenosis and possible occlusion mid segment. There is some motion artifact in this area that limits evaluation. 4. Popliteal artery is patent with mild calcific plaque. 5. Runoff shows a patent peroneal artery. The anterior tibial artery is heavily calcified but believed to be patent. The Posterior tibial artery is occluded. LEFT LOWER EXTREMITY CT ANGIOGRAM: Common femoral artery is occluded. Profunda femoral artery fills via collaterals. The left above knee amputation.
--- NOTE | 2017-01-16 14:01 | VASCLAB ---
STUDY DESCRIPTION: HISTORY: gangrene right foot PRIORS: None. TECHNIQUE: Pulse volume recording waveforms and segmental pressures of right lower extremities at multiple levels were obtained. Ankle Brachial Indices (ABIs) were calculated. Report prepared by DAGO Ibarra, RVT RIGHT LOWER EXTREMITY: * Brachial artery: Pressure - 126 mmHg. * High thigh: Pressure - mmHg: Ratio - : PVR waveform - Reduced * Low thigh: Pressure - mmHg: Ratio - PVR waveform: Reduced * Calf: Pressure - 220 mmHg: Ratio - NC PVR waveform: Reduced * Posterior tibial Artery: Pressure - 220 mmHg: Ratio - NC PVR waveform: Reduced * Dorsalis pedis Artery: Pressure - 220 mmHg: Ratio - NC PVR waveform: Reduced * Great toe: Pressure - mmHg: Ratio - PVR waveform: Ankle brachial index (JOHN): NC OTHER FINDINGS: Right: IMPRESSION: Right: The ankle pressure index of the right lower extremity is non-diagnostic due to possible arterial wall calcifications. Monophasic waveforms.
--- NOTE | 2017-01-16 14:03 | VASCLAB ---
PROCEDURE: HISTORY: gangrene right foot COMPARISON: None available. TECHNIQUE: Grayscale and duplex Doppler evaluation of the right common femoral, femoral, profunda femoral, popliteal, posterior tibial, anterior tibial and dorsalis pedis arteries was performed. Report prepared by Nash Brady, DAGO, RVT FINDINGS: RIGHT LOWER EXTREMITY: * Common Femoral Artery: Peak Systolic Velocity - 165: Doppler Waveform: Biphasic: Plaque description - Calcific * Profunda Femoral Artery: Peak Systolic Velocity - 99: Doppler Waveform: biphasic.: Plaque description - Calcific * Femoral Artery o Proximal Segment: Peak Systolic Velocity - 91: Doppler Waveform: Biphasic: Plaque description - Calcific o Middle Segment: Peak Systolic Velocity - 293: Doppler Waveform: Biphasic: Plaque description - Calcific o Distal Segment: Peak Systolic Velocity - 64: Doppler Waveform: Biphasic: Plaque description - Calcific * Popliteal Artery o Proximal Segment: Peak Systolic Velocity - 65: Doppler Waveform: Biphasic: Plaque description - Calcific o Middle Segment: Peak Systolic Velocity - 51: Doppler Waveform: Biphasic: Plaque description - Calcific o Distal Segment: Peak Systolic Velocity - 65: Doppler Waveform: Biphasic: Plaque description - Calcific * Posterior Tibial Artery: Peak Systolic Velocity - 0: Doppler Waveform: Absent: Plaque description - Calcific * Anterior Tibial Artery: Peak Systolic Velocity - 90: Doppler Waveform: Biphasic: Plaque description - Calcific * Dorsalis Pedis Artery: Peak Systolic Velocity - 62: Doppler Waveform: Biphasic: Plaque description - Calcific OTHER FINDINGS: Technically difficult study due to severe calcified arterial bellamy. IMPRESSION: RIGHT: Occlusion of the right proximal and mid posterior tibial artery.
[2017-01-16 20:04] LABS: HEMATOCRIT 41.9 % (35.0-51.0); MEAN CELL VOLUME 98.7 fL (80.0-94.0); MEAN CORPUSCULAR HEMOGLOBIN 33.6 pg (27.0-31.0); MEAN CORPUSCULAR HGB CONC 34.1 g/dL (33.0-37.0); MEAN PLATELET VOLUME 8.5 fL (7.2-11.7); RED CELL DISTRIBUTION WIDTH 15.2 % (11.5-14.5); WHITE BLOOD COUNT 9.3 K/uL (4.8-10.8)
[2017-01-16 20:36] LABS: ALB/GLOB RATIO 0.9 (1.0-2.1); ALKALINE PHOSPHATASE 119 U/L (38-126); ALT/SGPT 30 U/L (21-72); AST/SGOT 23 U/L (17-59); BILIRUBIN,TOTAL 0.4 mg/dL (0.2-1.3); BLOOD UREA NITROGEN 3 mg/dL (9-20); CALCIUM 7.4 mg/dl (8.6-10.4); CARBON DIOXIDE 24 mmol/L (22-30); CHLORIDE 99 mmol/L (98-107); GFR AFRICAN-AMERICAN > 60; GLUCOSE,RANDOM 121 mg/dL (75-110); POTASSIUM 4.3 mmol/L (3.6-5.2); SODIUM 133 mmol/L (132-148)
--- NOTE | 2017-01-16 23:45 | CP.PCM.PN ---
Subjective - Date & Time of Evaluation Date of Evaluation: 01/16/17 Time of Evaluation: 09:00 - Subjective Subjective: Pt seen and examined, is feelig better Objective - Vital Signs/Intake and Output Vital Signs (last 24 hours): Temp Pulse Resp BP Pulse Ox 98.5 F 77 20 119/75 96 01/16/17 16:49 01/16/17 16:49 01/16/17 16:49 01/16/17 18:06 01/16/17 16:49 Intake and Output: 01/16/17 01/17/17 18:59 06:59 Intake Total 1780 Output Total 600 Balance 1180 - Medications Medications: Current Medications Carvedilol (Coreg) 25 mg PO BID [facility] Last Admin: 01/16/17 18:06 Dose: 25 mg Clopidogrel Bisulfate (Plavix) 75 mg PO DAILY [facility] Last Admin: 01/16/17 09:50 Dose: Not Given Enoxaparin Sodium (Lovenox) 40 mg SC DAILY [facility] Last Admin: 01/16/17 09:45 Dose: 40 mg Gabapentin (Neurontin) 300 mg PO TID [facility] Last Admin: 01/16/17 18:06 Dose: 300 mg Ceftriaxone Sodium (Rocephin Iv 1 Gm Duplex) 50 mls @ 100 mls/hr IVPB Q24H [facility] Last Admin: 01/16/17 10:13 Dose: 100 mls/hr Insulin Aspart (Novolog) 0 unit SC ACHS [facility] PRN Reason: Protocol Last Admin: 01/16/17 22:53 Dose: Not Given Insulin Glargine (Lantus) 35 unit SC Q12 [facility] Last Admin: 01/16/17 21:32 Dose: Not Given Ipratropium [place] (Atrovent Hfa) 2 puff IH RQ6 PRN PRN Reason: Shortness of Breath Lisinopril (Zestril) 5 mg PO DAILY [facility] Last Admin: 01/16/17 09:50 Dose: 5 mg Multivitamins/Minerals (Therapeutic-M Tab) 1 tab PO DAILY [facility] Last Admin: 01/16/17 09:50 Dose: 1 tab Oxycodone/Acetaminophen (Percocet 5/325 Mg Tab) 2 tab PO Q4H PRN PRN Reason: Pain, severe (8-10) Stop: 01/19/17 09:19 Last Admin: 01/16/17 19:21 Dose: 2 tab Oxycodone/Acetaminophen (Percocet 5/325 Mg Tab) 1 tab PO Q4H PRN PRN Reason: Pain, moderate (4-7) Stop: 01/18/17 19:57 Rosuvastatin Calcium (Crestor) 5 mg PO HS [facility] Last Admin: 01/16/17 21:32 Dose: 5 mg Sennosides (Senokot Tab) 8.6 mg PO DAILY [facility] Last Admin: 01/16/17 09:50 Dose: 8.6 mg Thiamine HCl (Vitamin B1 Tab) 100 mg PO DAILY [facility] Last Admin: 01/16/17 09:50 Dose: 100 mg Zolpidem Tartrate (Ambien) 5 mg PO HS PRN PRN Reason: Insomnia - Labs Labs: 01/16/17 19:55 01/16/17 19:55 Assessment and Plan (1) Gangrene of toe of right foot Assessment & Plan: 51yo M with PVD here with Right 5th toe gangrene. - Will plan for theraputic angio on Friday, 01/20 - NPO past midnight Friday - Replace dressings as needed - elevation of right foot - continue IV Abx - Pain management Status: Acute (2) Diabetes mellitus Status: Chronic (3) PAD (peripheral artery disease) Status: Chronic
[2017-01-17] MEDS: Oxycodone/Acetaminophen 5/325 mg Tab PO PRN ×4 (06:23→22:55)
[2017-01-17] MEDS: (Novolog) Insulin Aspart, Recombinant 100 u/ml 10 ml vial SC SCH ×4 (07:30→21:48)
--- NOTE | 2017-01-17 09:23 | CP.PCM.PN ---
Subjective - Date & Time of Evaluation Date of Evaluation: 01/17/17 Time of Evaluation: 07:00 - Subjective Subjective: Surgery progress note. Dr. Fernández Pt seen and examined at bedside. No acute events overnight. No N/V/D. No Abd pain. No tremors. No F/C. No new complaints Objective - Vital Signs/Intake and Output Vital Signs (last 24 hours): Temp Pulse Resp BP Pulse Ox 98.2 F 75 20 109/74 97 01/17/17 07:40 01/17/17 07:40 01/17/17 07:40 01/17/17 07:40 01/17/17 07:40 Intake and Output: 01/17/17 01/17/17 06:59 18:59 Intake Total 850 Balance 850 - Medications Medications: Current Medications Carvedilol (Coreg) 25 mg PO BID [facility] Last Admin: 01/16/17 18:06 Dose: 25 mg Clopidogrel Bisulfate (Plavix) 75 mg PO DAILY [facility] Last Admin: 01/16/17 09:50 Dose: Not Given Enoxaparin Sodium (Lovenox) 40 mg SC DAILY [facility] Last Admin: 01/16/17 09:45 Dose: 40 mg Gabapentin (Neurontin) 300 mg PO TID [facility] Last Admin: 01/16/17 18:06 Dose: 300 mg Ceftriaxone Sodium (Rocephin Iv 1 Gm Duplex) 50 mls @ 100 mls/hr IVPB Q24H [facility] Last Admin: 01/16/17 10:13 Dose: 100 mls/hr Insulin Aspart (Novolog) 0 unit SC ACHS [facility] PRN Reason: Protocol Last Admin: 01/16/17 22:53 Dose: Not Given Insulin Glargine (Lantus) 35 unit SC Q12 [facility] Last Admin: 01/16/17 21:32 Dose: Not Given Ipratropium [place] (Atrovent Hfa) 2 puff IH RQ6 PRN PRN Reason: Shortness of Breath Lisinopril (Zestril) 5 mg PO DAILY [facility] Last Admin: 01/16/17 09:50 Dose: 5 mg Multivitamins/Minerals (Therapeutic-M Tab) 1 tab PO DAILY [facility] Last Admin: 01/16/17 09:50 Dose: 1 tab Oxycodone/Acetaminophen (Percocet 5/325 Mg Tab) 2 tab PO Q4H PRN PRN Reason: Pain, severe (8-10) Stop: 01/19/17 09:19 Last Admin: 01/17/17 06:23 Dose: 2 tab Oxycodone/Acetaminophen (Percocet 5/325 Mg Tab) 1 tab PO Q4H PRN PRN Reason: Pain, moderate (4-7) Stop: 01/18/17 19:57 Rosuvastatin Calcium (Crestor) 5 mg PO HS [facility] Last Admin: 01/16/17 21:32 Dose: 5 mg Sennosides (Senokot Tab) 8.6 mg PO DAILY [facility] Last Admin: 01/16/17 09:50 Dose: 8.6 mg Thiamine HCl (Vitamin B1 Tab) 100 mg PO DAILY [facility] Last Admin: 01/16/17 09:50 Dose: 100 mg Zolpidem Tartrate (Ambien) 5 mg PO HS PRN PRN Reason: Insomnia - Labs Labs: 01/16/17 19:55 01/16/17 19:55 - Constitutional Appears: Well, No Acute Distress - Head Exam Head Exam: ATRAUMATIC, NORMAL INSPECTION, NORMOCEPHALIC - Eye Exam Eye Exam: EOMI - ENT Exam ENT Exam: Mucous Membranes Moist - Respiratory Exam Respiratory Exam: NORMAL BREATHING PATTERN. absent: Accessory Muscle Use, Respiratory Distress - Cardiovascular Exam Cardiovascular Exam: absent: JVD - GI/Abdominal Exam GI & Abdominal Exam: Soft. absent: Distended, Firm, Guarding, Rigid, Tenderness - Extremities Exam Additional comments: left BKA Right lower extremity with 5th digit dry gangrene. Foot is warm, no erythema or edema noted. - Neurological Exam Neurological Exam: Alert, Awake, Oriented x3 - Psychiatric Exam Psychiatric exam: Normal Affect, Normal Mood Assessment and Plan - Assessment and Plan (Free Text) Assessment: 51yo M with PVD here with Right 5th toe gangrene. - Will plan for theraputic angio on Friday, 01/20 - NPO past midnight Friday - Replace dressings as needed - elevation of right foot - continue IV Abx - Pain management Further recs as per Dr. Pradeep Sevilla PGY1 surgery pager: [phone]
--- NOTE | 2017-01-17 09:40 | CP.PCM.PN ---
Subjective - Date & Time of Evaluation Date of Evaluation: 01/17/17 Time of Evaluation: 09:38 - Subjective Subjective: Pt seen for gangrene toe 5 rt. hx of DM and PAD Objective - Vital Signs/Intake and Output Vital Signs (last 24 hours): Temp Pulse Resp BP Pulse Ox 98.2 F 75 20 109/74 97 01/17/17 07:40 01/17/17 07:40 01/17/17 07:40 01/17/17 07:40 01/17/17 07:40 Intake and Output: 01/17/17 01/17/17 06:59 18:59 Intake Total 850 Balance 850 - Medications Medications: Current Medications Carvedilol (Coreg) 25 mg PO BID [facility] Last Admin: 01/16/17 18:06 Dose: 25 mg Clopidogrel Bisulfate (Plavix) 75 mg PO DAILY [facility] Last Admin: 01/16/17 09:50 Dose: Not Given Enoxaparin Sodium (Lovenox) 40 mg SC DAILY [facility] Last Admin: 01/16/17 09:45 Dose: 40 mg Gabapentin (Neurontin) 300 mg PO TID [facility] Last Admin: 01/16/17 18:06 Dose: 300 mg Ceftriaxone Sodium (Rocephin Iv 1 Gm Duplex) 50 mls @ 100 mls/hr IVPB Q24H [facility] Last Admin: 01/16/17 10:13 Dose: 100 mls/hr Insulin Aspart (Novolog) 0 unit SC ACHS [facility] PRN Reason: Protocol Last Admin: 01/16/17 22:53 Dose: Not Given Insulin Glargine (Lantus) 35 unit SC Q12 [facility] Last Admin: 01/16/17 21:32 Dose: Not Given Ipratropium [place] (Atrovent Hfa) 2 puff IH RQ6 PRN PRN Reason: Shortness of Breath Lisinopril (Zestril) 5 mg PO DAILY [facility] Last Admin: 01/16/17 09:50 Dose: 5 mg Multivitamins/Minerals (Therapeutic-M Tab) 1 tab PO DAILY [facility] Last Admin: 01/16/17 09:50 Dose: 1 tab Oxycodone/Acetaminophen (Percocet 5/325 Mg Tab) 2 tab PO Q4H PRN PRN Reason: Pain, severe (8-10) Stop: 01/19/17 09:19 Last Admin: 01/17/17 06:23 Dose: 2 tab Oxycodone/Acetaminophen (Percocet 5/325 Mg Tab) 1 tab PO Q4H PRN PRN Reason: Pain, moderate (4-7) Stop: 01/18/17 19:57 Rosuvastatin Calcium (Crestor) 5 mg PO HS [facility] Last Admin: 01/16/17 21:32 Dose: 5 mg Sennosides (Senokot Tab) 8.6 mg PO DAILY [facility] Last Admin: 01/16/17 09:50 Dose: 8.6 mg Thiamine HCl (Vitamin B1 Tab) 100 mg PO DAILY [facility] Last Admin: 01/16/17 09:50 Dose: 100 mg Zolpidem Tartrate (Ambien) 5 mg PO HS PRN PRN Reason: Insomnia - Labs Labs: 01/16/17 19:55 01/16/17 19:55 - Extremities Exam Additional comments: O/ Dry gangrene toe 5 rt . Occlusion Pt artery rt . No malodor or cellulitis noted . Dp,Pt non Palp rt Assessment and Plan - Assessment and Plan (Free Text) Assessment: A/Gangrene toe 5 rt Plan: P/ awaiting vascular intervention Friday . Apply sterile dressing .
[2017-01-17] MEDS: (Lantus) Insulin Glargine, Recombinant SC SCH ×2 (10:39→21:47)
[2017-01-17] MEDS: Enoxaparin 40 mg Syringe SC SCH (10:40)
[2017-01-17] MEDS: Multivitamin With Minerals Tab PO SCH (10:43)
[2017-01-17] MEDS: cefTRIAXone IV 1 gm in Dextros 50 ML IVPB SCH (10:57)
--- NOTE | 2017-01-17 23:11 | CP.PCM.PN ---
Subjective - Date & Time of Evaluation Date of Evaluation: 01/17/17 Time of Evaluation: 09:00 - Subjective Subjective: Pt seen and examined at bedside. No acute events overnight. No N/V/D. No Abd pain. No tremors. No F/C. No new complaints, he is for cardiac cath on friday, cardiac eval has been called. left AKA stump is clean Objective - Vital Signs/Intake and Output Vital Signs (last 24 hours): Temp Pulse Resp BP Pulse Ox 98.2 F 85 20 94/56 L 97 01/17/17 17:27 01/17/17 17:27 01/17/17 17:27 01/17/17 19:07 01/17/17 17:27 Intake and Output: 01/17/17 01/18/17 18:59 06:59 Intake Total 780 Output Total 400 Balance 380 - Medications Medications: Current Medications Carvedilol (Coreg) 25 mg PO BID [facility] Last Admin: 01/17/17 19:07 Dose: Not Given Clopidogrel Bisulfate (Plavix) 75 mg PO DAILY [facility] Last Admin: 01/17/17 10:42 Dose: Not Given Enoxaparin Sodium (Lovenox) 40 mg SC DAILY [facility] Last Admin: 01/17/17 10:40 Dose: Not Given Gabapentin (Neurontin) 300 mg PO TID [facility] Last Admin: 01/17/17 19:02 Dose: 300 mg Ceftriaxone Sodium (Rocephin Iv 1 Gm Duplex) 50 mls @ 100 mls/hr IVPB Q24H [facility] Last Admin: 01/17/17 10:57 Dose: 100 mls/hr Insulin Aspart (Novolog) 0 unit SC ACHS [facility] PRN Reason: Protocol Last Admin: 01/17/17 21:48 Dose: Not Given Insulin Glargine (Lantus) 35 unit SC Q12 [facility] Last Admin: 01/17/17 21:47 Dose: Not Given Ipratropium [place] (Atrovent Hfa) 2 puff IH RQ6 PRN PRN Reason: Shortness of Breath Lisinopril (Zestril) 5 mg PO DAILY [facility] Last Admin: 01/17/17 10:45 Dose: 5 mg Multivitamins/Minerals (Therapeutic-M Tab) 1 tab PO DAILY [facility] Last Admin: 01/17/17 10:43 Dose: 1 tab Oxycodone/Acetaminophen (Percocet 5/325 Mg Tab) 2 tab PO Q4H PRN PRN Reason: Pain, severe (8-10) Stop: 01/19/17 09:19 Last Admin: 01/17/17 22:55 Dose: 2 tab Oxycodone/Acetaminophen (Percocet 5/325 Mg Tab) 1 tab PO Q4H PRN PRN Reason: Pain, moderate (4-7) Stop: 01/18/17 19:57 Rosuvastatin Calcium (Crestor) 5 mg PO HS [facility] Last Admin: 01/17/17 21:46 Dose: 5 mg Sennosides (Senokot Tab) 8.6 mg PO DAILY [facility] Last Admin: 01/17/17 10:43 Dose: 8.6 mg Thiamine HCl (Vitamin B1 Tab) 100 mg PO DAILY [facility] Last Admin: 01/17/17 10:45 Dose: 100 mg Zolpidem Tartrate (Ambien) 5 mg PO HS PRN PRN Reason: Insomnia - Labs Labs: 01/16/17 19:55 01/16/17 19:55 Assessment and Plan (1) Gangrene of toe of right foot Status: Acute (2) Diabetes mellitus Status: Chronic (3) PAD (peripheral artery disease) Status: Chronic (4) HTN (hypertension) Status: Acute - Assessment and Plan (Free Text) Plan: cardiac eval Or Bypass on friday
--- NOTE | 2017-01-18 02:48 | CON ---
DATE: REASON FOR CONSULTATION: Preoperative evaluation. HISTORY OF PRESENT ILLNESS: The patient is a 51-year-old male who has a history of hypertension, diabetes mellitus, peripheral vascular disease, status post left above-knee amputation less than a year ago according to him. The patient has been evaluated for right leg vascular bypass scheduled on Friday. The patient is unaware of any prior cardiac history and is not sure of any coronary angiogram done on him in the recent past. The patient denies any chest pain at this time. SOCIAL HISTORY: The patient is a smoker. MEDICATIONS: Ambien 5 mg at bedtime, Coreg 25 mg once a day, Crestor 5 mg once a day, Lantus insulin 35 units q. 12 hours, Lovenox 40 mg subcutaneously once a day, Plavix 75 mg once a day, Percocet one tablet q. 4 hours p.r.n., Rocephin 1 g intravenously daily, and Zestril 5 mg daily. REVIEW OF SYSTEMS: No fever or chills. No dizziness or syncope. PHYSICAL EXAMINATION: GENERAL: The patient is a middle-aged male, who does not appear to be in acute distress. VITAL SIGNS: Blood pressure 109/74, heart rate 75, temperature 98.2, respirations 20. HEENT: Normocephalic. CHEST: Clear. HEART: S1, S2 regular. EXTREMITIES: Left above-knee amputation, and dressing is applied to the right foot. LABORATORY DATA: SMA-7, sodium 133, potassium 4.2, chloride 99, CO2 of 24, glucose 121, BUN 3, creatinine 0.6. Hemoglobin, hematocrit, white count and platelet count are within normal limit. Lower extremity arterial Doppler in the right, ankle pressure index of the right lower extremity is nondiagnostic due to possible arterial calcification, monophasic waveforms. Abdominal angiography revealed moderate plaques throughout abdominal aorta with significant luminal narrowing of the infrarenal aorta, occluded left external iliac artery stent and common femoral artery, left above-knee amputation. Mild stenosis of the proximal right external iliac artery. Right lower extremity CT angiogram revealed occluded stents and bypass grafts. Moderate stenosis of the common femoral artery with moderate calcified plaque. Diffuse calcified plaques throughout the superficial femoral artery with multiple areas of [id number] stenosis and possible occlusion in mid segment. Popliteal artery was patent with mild calcified plaque. EKG revealed normal sinus rhythm, possible old anterior infarct. ASSESSMENT: 1. Peripheral vascular disease, status post left above-knee amputation, with significant disease of the right lower extremity. 2. Hypertension. 3. Diabetes mellitus. RECOMMENDATIONS: Continue current Coreg 25 mg once a day, Crestor 5 mg once a day, Plavix 75 mg once a day, Zestril 5 mg once a day. Obtain an echocardiogram. We will further discuss the medical clearance with Dr. Fernández, vascular surgeon, depending on the extent of the surgical intervention and the recommendations will follow. Christiano Oviedo MD
[2017-01-18] MEDS: Oxycodone/Acetaminophen 5/325 mg Tab PO PRN ×4 (03:35→22:52)
--- NOTE | 2017-01-18 08:00 | CP.PCM.PN ---
Subjective - Date & Time of Evaluation Date of Evaluation: 01/18/17 Time of Evaluation: 07:57 - Subjective Subjective: Surgery Progress note. Dr. Fernández Pt seen and examined at bedside. no acute events overnight. No F/C. NO N/V/D. No Abd pain. No tremors. No signs of ETOH withdrawal. No new complaints Objective - Vital Signs/Intake and Output Vital Signs (last 24 hours): Temp Pulse Resp BP Pulse Ox 98.4 F 84 20 96/66 L 96 01/18/17 00:00 01/18/17 00:00 01/18/17 00:00 01/18/17 00:00 01/18/17 00:00 Intake and Output: 01/18/17 01/18/17 06:59 18:59 Intake Total 1200 Balance 1200 - Medications Medications: Current Medications Carvedilol (Coreg) 25 mg PO BID [facility] Last Admin: 01/17/17 19:07 Dose: Not Given Clopidogrel Bisulfate (Plavix) 75 mg PO DAILY [facility] Last Admin: 01/17/17 10:42 Dose: Not Given Enoxaparin Sodium (Lovenox) 40 mg SC DAILY [facility] Last Admin: 01/17/17 10:40 Dose: Not Given Gabapentin (Neurontin) 300 mg PO TID [facility] Last Admin: 01/17/17 19:02 Dose: 300 mg Ceftriaxone Sodium (Rocephin Iv 1 Gm Duplex) 50 mls @ 100 mls/hr IVPB Q24H [facility] Last Admin: 01/17/17 10:57 Dose: 100 mls/hr Insulin Aspart (Novolog) 0 unit SC ACHS [facility] PRN Reason: Protocol Last Admin: 01/17/17 21:48 Dose: Not Given Insulin Glargine (Lantus) 35 unit SC Q12 [facility] Last Admin: 01/17/17 21:47 Dose: Not Given Ipratropium [place] (Atrovent Hfa) 2 puff IH RQ6 PRN PRN Reason: Shortness of Breath Lisinopril (Zestril) 5 mg PO DAILY [facility] Last Admin: 01/17/17 10:45 Dose: 5 mg Multivitamins/Minerals (Therapeutic-M Tab) 1 tab PO DAILY [facility] Last Admin: 01/17/17 10:43 Dose: 1 tab Oxycodone/Acetaminophen (Percocet 5/325 Mg Tab) 2 tab PO Q4H PRN PRN Reason: Pain, severe (8-10) Stop: 01/19/17 09:19 Last Admin: 01/18/17 03:35 Dose: 2 tab Oxycodone/Acetaminophen (Percocet 5/325 Mg Tab) 1 tab PO Q4H PRN PRN Reason: Pain, moderate (4-7) Stop: 01/18/17 19:57 Rosuvastatin Calcium (Crestor) 5 mg PO HS [facility] Last Admin: 01/17/17 21:46 Dose: 5 mg Sennosides (Senokot Tab) 8.6 mg PO DAILY [facility] Last Admin: 01/17/17 10:43 Dose: 8.6 mg Thiamine HCl (Vitamin B1 Tab) 100 mg PO DAILY [facility] Last Admin: 01/17/17 10:45 Dose: 100 mg Zolpidem Tartrate (Ambien) 5 mg PO HS PRN PRN Reason: Insomnia - Labs Labs: 01/16/17 19:55 01/16/17 19:55 - Constitutional Appears: Well, Non-toxic, No Acute Distress - Head Exam Head Exam: ATRAUMATIC, NORMAL INSPECTION, NORMOCEPHALIC - Eye Exam Eye Exam: EOMI - ENT Exam ENT Exam: Mucous Membranes Moist - Respiratory Exam Respiratory Exam: NORMAL BREATHING PATTERN. absent: Accessory Muscle Use, Respiratory Distress - GI/Abdominal Exam GI & Abdominal Exam: Soft. absent: Distended, Firm, Guarding, Rigid, Tenderness - Extremities Exam Additional comments: left leg AKA. Right foot dressing in place. - Neurological Exam Neurological Exam: Alert, Awake, Oriented x3 - Psychiatric Exam Psychiatric exam: Normal Affect, Normal Mood Assessment and Plan - Assessment and Plan (Free Text) Assessment: 51yo M with PVD here with Right 5th toe gangrene. - Plan for Theraputic angio on Friday, 01/20 - NPO pMN Friday - Replace dressings prn - elevation of right foot - continue IV Abx - Pain management Further recs as per Dr. Pradeep Sevilla PGY1 surgery pager: [phone]
[2017-01-18] MEDS: (Novolog) Insulin Aspart, Recombinant 100 u/ml 10 ml vial SC SCH ×4 (09:19→22:03)
[2017-01-18] MEDS: Multivitamin With Minerals Tab PO SCH (10:12)
[2017-01-18] MEDS: cefTRIAXone IV 1 gm in Dextros 50 ML IVPB SCH (10:12)
[2017-01-18] MEDS: Enoxaparin 40 mg Syringe SC SCH (10:17)
[2017-01-18] MEDS: (Lantus) Insulin Glargine, Recombinant SC SCH ×2 (10:18→22:03)
--- NOTE | 2017-01-18 13:05 | CP.PCM.PN ---
Subjective - Date & Time of Evaluation Date of Evaluation: 01/18/17 Time of Evaluation: 13:05 - Subjective Subjective: Podiatry Progress Note - Dr. Malik Pt seen at bedside this morning for right foot 5th toe gangrene. Pt denies any acute events overnight. Pt admits to an occasional stabbing pain along the outside of the foot near the toe. Pt denies any F/C/N/V/CP/SOB. Pt says the Percocet helps to alleviate his pain. Objective - Vital Signs/Intake and Output Vital Signs (last 24 hours): Temp Pulse Resp BP Pulse Ox 98.5 F 108 H 20 99/66 L 99 01/18/17 08:00 01/18/17 08:00 01/18/17 08:00 01/18/17 08:00 01/18/17 08:00 Intake and Output: 01/18/17 01/18/17 06:59 18:59 Intake Total 1200 Balance 1200 - Medications Medications: Current Medications Carvedilol (Coreg) 25 mg PO BID [facility] Last Admin: 01/18/17 10:16 Dose: Not Given Clopidogrel Bisulfate (Plavix) 75 mg PO DAILY [facility] Last Admin: 01/18/17 10:16 Dose: Not Given Enoxaparin Sodium (Lovenox) 40 mg SC DAILY [facility] Last Admin: 01/18/17 10:17 Dose: Not Given Gabapentin (Neurontin) 300 mg PO TID [facility] Last Admin: 01/18/17 10:11 Dose: 300 mg Ceftriaxone Sodium (Rocephin Iv 1 Gm Duplex) 50 mls @ 100 mls/hr IVPB Q24H [facility] Last Admin: 01/18/17 10:12 Dose: 100 mls/hr Insulin Aspart (Novolog) 0 unit SC ACHS [facility] PRN Reason: Protocol Last Admin: 01/18/17 09:19 Dose: Not Given Insulin Glargine (Lantus) 35 unit SC Q12 [facility] Last Admin: 01/18/17 10:18 Dose: Not Given Ipratropium [place] (Atrovent Hfa) 2 puff IH RQ6 PRN PRN Reason: Shortness of Breath Lisinopril (Zestril) 5 mg PO DAILY [facility] Last Admin: 01/18/17 10:11 Dose: Not Given Multivitamins/Minerals (Therapeutic-M Tab) 1 tab PO DAILY [facility] Last Admin: 01/18/17 10:12 Dose: 1 tab Oxycodone/Acetaminophen (Percocet 5/325 Mg Tab) 2 tab PO Q4H PRN PRN Reason: Pain, severe (8-10) Stop: 01/19/17 09:19 Last Admin: 01/18/17 10:13 Dose: 2 tab Oxycodone/Acetaminophen (Percocet 5/325 Mg Tab) 1 tab PO Q4H PRN PRN Reason: Pain, moderate (4-7) Stop: 01/18/17 19:57 Rosuvastatin Calcium (Crestor) 5 mg PO HS [facility] Last Admin: 01/17/17 21:46 Dose: 5 mg Sennosides (Senokot Tab) 8.6 mg PO DAILY [facility] Last Admin: 01/18/17 10:17 Dose: Not Given Thiamine HCl (Vitamin B1 Tab) 100 mg PO DAILY [facility] Last Admin: 01/18/17 10:11 Dose: 100 mg Zolpidem Tartrate (Ambien) 5 mg PO HS PRN PRN Reason: Insomnia - Labs Labs: 01/16/17 19:55 01/16/17 19:55 - Constitutional Appears: Well, Non-toxic, No Acute Distress - Extremities Exam Additional comments: Left leg above knee amputation noted; stable. Right lower extremity focused. Dressings are clean, dry, and intact with no strikethrough noted. VASC: DP and PT pulses non-palpable. Temperature runs warm to warm proximal to distal. Absent capillary digital refill time to 5th digit, remaining 4 digits capillary refill time <3 seconds. NEURO: Protective sensation grossly diminished along lateral aspect of foot. DERM: Right 5th digit degloved superficial skin of 5th digit with localized mix of dark ischemic discoloration and erythematous dermal tissue base. No active drainage noted. No malodor present. [place]-wound erythema noted extending to lateral margin of 5th metatarsal-phalangeal joint. No other open wounds, lesion , or macerations noted. MUSK: No tenderness to deep palpation noted. No gross deformities noted. Pedal muscle strength graded 5/5 in all 4 major muscle groups. - Neurological Exam Neurological Exam: Alert, Awake, Oriented x3 - Psychiatric Exam Psychiatric exam: Normal Affect, Normal Mood Assessment and Plan - Assessment and Plan (Free Text) Assessment: 51 year old diabetic male with right foot 5th digit gangrene secondary to peripheral vascular disease Plan: Pt was evaluated and treated at bedside Discussed plan with attending Dr. Malik Chart, labs, and vitals reviewed - afebrile, absent leukocytosis Ischemia and dry gangrene changes noted Dressed affected site with betadine and DSD Continue pain management with analgesics Wound cx results: MRSA, Klebsiella Pt to go to angio on Friday Podiatry will continue to follow while in house
--- NOTE | 2017-01-18 20:17 | PN ---
DATE: FOLLOWUP SUBJECTIVE: The patient denies any chest pain or shortness of breath. PHYSICAL EXAMINATION: VITAL SIGNS: Blood pressure 144/99, earlier was 99/66; heart rate 86; temperature 99.4; respirations 20. HEENT: Normocephalic. CHEST: Clear. HEART: S1 and S2 regular. EXTREMITIES: Left above-knee amputation. LABORATORY DATA: Microbiology work of the right foot revealed MRSA as well as Klebsiella ozaenae. Echocardiographic study is still pending. ASSESSMENT: 1. Methicillin-resistant Staphylococcus aureus right foot infection. 2. Peripheral vascular disease, status post left above-knee amputation. 3. Hypertension. 4. Diabetes mellitus. RECOMMENDATIONS: Agree with the patient's transfer to isolation room. Continue current Coreg 25 mg twice a day, Crestor 5 mg once a day, Lovenox 20 mg subcutaneously once a day, Plavix 75 mg once a day, thiamine 100 mg once a day, Zestril 5 mg once a day. Unfortunately, the echo was not done today and it will hopefully be performed on Friday. Christiano Oviedo MD
[2017-01-19] MEDS: Oxycodone/Acetaminophen 5/325 mg Tab PO PRN ×4 (03:17→22:55)
[2017-01-19] MEDS: (Novolog) Insulin Aspart, Recombinant 100 u/ml 10 ml vial SC SCH ×4 (08:10→21:39)
[2017-01-19 08:15] LABS: MEAN CELL VOLUME 99.6 fL (80.0-94.0); MEAN CORPUSCULAR HGB CONC 34.1 g/dL (33.0-37.0); MEAN PLATELET VOLUME 9.1 fL (7.2-11.7); RED CELL DISTRIBUTION WIDTH 15.1 % (11.5-14.5); WHITE BLOOD COUNT 7.8 K/uL (4.8-10.8)
[2017-01-19 08:34] LABS: BLOOD UREA NITROGEN 6 mg/dL (9-20); CALCIUM 7.8 mg/dl (8.6-10.4); CARBON DIOXIDE 24 mmol/L (22-30); CHLORIDE 103 mmol/L (98-107); GFR AFRICAN-AMERICAN > 60; GLUCOSE,RANDOM 122 mg/dL (75-110); POTASSIUM 3.9 mmol/L (3.6-5.2); SODIUM 136 mmol/L (132-148)
[2017-01-19] MEDS: Multivitamin With Minerals Tab PO SCH (09:55)
[2017-01-19] MEDS: Enoxaparin 40 mg Syringe SC SCH (09:56)
[2017-01-19] MEDS: (Lantus) Insulin Glargine, Recombinant SC SCH ×2 (09:56→21:37)
[2017-01-19] MEDS: cefTRIAXone IV 1 gm in Dextros 50 ML IVPB SCH (10:01)
--- NOTE | 2017-01-19 11:03 | CP.PCM.PN ---
Subjective - Date & Time of Evaluation Date of Evaluation: 01/18/17 Time of Evaluation: 19:00 - Subjective Subjective: Pt seen at bedside . Pt denies any acute events overnight. Pt admits to an occasional stabbing pain along the outside of the foot near the toe. Pt denies any F/C/N/V/CP/SOB. Pt says the Percocet helps to alleviate his pain. Objective - Vital Signs/Intake and Output Vital Signs (last 24 hours): Temp Pulse Resp BP Pulse Ox 97.9 F 82 20 121/75 96 01/19/17 08:14 01/19/17 08:14 01/19/17 08:14 01/19/17 10:01 01/19/17 08:14 Intake and Output: 01/19/17 01/19/17 06:59 18:59 Intake Total 600 480 Balance 600 480 - Medications Medications: Current Medications Carvedilol (Coreg) 25 mg PO BID [facility] Last Admin: 01/19/17 10:01 Dose: 25 mg Clopidogrel Bisulfate (Plavix) 75 mg PO DAILY [facility] Last Admin: 01/19/17 09:57 Dose: Not Given Enoxaparin Sodium (Lovenox) 40 mg SC DAILY [facility] Last Admin: 01/19/17 09:56 Dose: Not Given Gabapentin (Neurontin) 300 mg PO TID [facility] Last Admin: 01/19/17 09:56 Dose: 300 mg Ceftriaxone Sodium (Rocephin Iv 1 Gm Duplex) 50 mls @ 100 mls/hr IVPB Q24H [facility] Last Admin: 01/19/17 10:01 Dose: 100 mls/hr Insulin Aspart (Novolog) 0 unit SC ACHS [facility] PRN Reason: Protocol Last Admin: 01/19/17 08:10 Dose: Not Given Insulin Glargine (Lantus) 35 unit SC Q12 [facility] Last Admin: 01/19/17 09:56 Dose: Not Given Ipratropium [place] (Atrovent Hfa) 2 puff IH RQ6 PRN PRN Reason: Shortness of Breath Lisinopril (Zestril) 5 mg PO DAILY [facility] Last Admin: 01/19/17 09:56 Dose: 5 mg Multivitamins/Minerals (Therapeutic-M Tab) 1 tab PO DAILY [facility] Last Admin: 01/19/17 09:55 Dose: 1 tab Rosuvastatin Calcium (Crestor) 5 mg PO HS [facility] Last Admin: 01/18/17 22:03 Dose: 5 mg Sennosides (Senokot Tab) 8.6 mg PO DAILY [facility] Last Admin: 01/19/17 09:57 Dose: Not Given Thiamine HCl (Vitamin B1 Tab) 100 mg PO DAILY [facility] Last Admin: 01/19/17 09:55 Dose: 100 mg Zolpidem Tartrate (Ambien) 5 mg PO HS PRN PRN Reason: Insomnia - Labs Labs: 01/19/17 08:06 01/19/17 08:06 - Constitutional Appears: No Acute Distress - Head Exam Head Exam: ATRAUMATIC, NORMAL INSPECTION, NORMOCEPHALIC - Eye Exam Eye Exam: EOMI, Normal appearance, PERRL Pupil Exam: NORMAL ACCOMODATION, PERRL - Respiratory Exam Respiratory Exam: Clear to Ausculation Bilateral, NORMAL BREATHING PATTERN - Cardiovascular Exam Cardiovascular Exam: REGULAR RHYTHM, +S1, +S2. absent: Murmur - GI/Abdominal Exam GI & Abdominal Exam: Soft, Normal Bowel Sounds. absent: Tenderness - Extremities Exam Additional comments: right foot 5th toe gangrene - Neurological Exam Neurological Exam: Alert, Awake, CN II-XII Intact, Normal Gait, Oriented x3 Assessment and Plan (1) Gangrene of toe of right foot Status: Acute (2) Diabetes mellitus Status: Chronic (3) PAD (peripheral artery disease) Status: Chronic
--- NOTE | 2017-01-19 11:04 | CP.PCM.PN ---
Subjective - Date & Time of Evaluation Date of Evaluation: 01/19/17 Time of Evaluation: 20:00 - Subjective Subjective: pt seen & evaluated at bedside, pt is for OR tommorow morning, he is cleard from cardiology, BS are under control. B.P stable, left AKA stump clean right toe has gangrene Objective - Vital Signs/Intake and Output Vital Signs (last 24 hours): Temp Pulse Resp BP Pulse Ox 97.9 F 82 20 121/75 96 01/19/17 08:14 01/19/17 08:14 01/19/17 08:14 01/19/17 10:01 01/19/17 08:14 Intake and Output: 01/19/17 01/19/17 06:59 18:59 Intake Total 600 480 Balance 600 480 - Medications Medications: Current Medications Carvedilol (Coreg) 25 mg PO BID [facility] Last Admin: 01/19/17 10:01 Dose: 25 mg Clopidogrel Bisulfate (Plavix) 75 mg PO DAILY [facility] Last Admin: 01/19/17 09:57 Dose: Not Given Enoxaparin Sodium (Lovenox) 40 mg SC DAILY [facility] Last Admin: 01/19/17 09:56 Dose: Not Given Gabapentin (Neurontin) 300 mg PO TID [facility] Last Admin: 01/19/17 09:56 Dose: 300 mg Ceftriaxone Sodium (Rocephin Iv 1 Gm Duplex) 50 mls @ 100 mls/hr IVPB Q24H [facility] Last Admin: 01/19/17 10:01 Dose: 100 mls/hr Insulin Aspart (Novolog) 0 unit SC ACHS [facility] PRN Reason: Protocol Last Admin: 01/19/17 08:10 Dose: Not Given Insulin Glargine (Lantus) 35 unit SC Q12 [facility] Last Admin: 01/19/17 09:56 Dose: Not Given Ipratropium [place] (Atrovent Hfa) 2 puff IH RQ6 PRN PRN Reason: Shortness of Breath Lisinopril (Zestril) 5 mg PO DAILY [facility] Last Admin: 01/19/17 09:56 Dose: 5 mg Multivitamins/Minerals (Therapeutic-M Tab) 1 tab PO DAILY [facility] Last Admin: 01/19/17 09:55 Dose: 1 tab Rosuvastatin Calcium (Crestor) 5 mg PO HS [facility] Last Admin: 01/18/17 22:03 Dose: 5 mg Sennosides (Senokot Tab) 8.6 mg PO DAILY [facility] Last Admin: 01/19/17 09:57 Dose: Not Given Thiamine HCl (Vitamin B1 Tab) 100 mg PO DAILY [facility] Last Admin: 01/19/17 09:55 Dose: 100 mg Zolpidem Tartrate (Ambien) 5 mg PO HS PRN PRN Reason: Insomnia - Labs Labs: 01/19/17 08:06 01/19/17 08:06 - Constitutional Appears: No Acute Distress - Head Exam Head Exam: ATRAUMATIC, NORMAL INSPECTION, NORMOCEPHALIC - Eye Exam Eye Exam: EOMI, Normal appearance, PERRL Pupil Exam: NORMAL ACCOMODATION, PERRL - Respiratory Exam Respiratory Exam: Clear to Ausculation Bilateral, NORMAL BREATHING PATTERN - Cardiovascular Exam Cardiovascular Exam: REGULAR RHYTHM, +S1, +S2. absent: Murmur - GI/Abdominal Exam GI & Abdominal Exam: Soft, Normal Bowel Sounds. absent: Tenderness - Rectal Exam Rectal Exam: Deferred Assessment and Plan (1) Gangrene of toe of right foot Status: Acute (2) Diabetes mellitus Status: Chronic (3) PAD (peripheral artery disease) Status: Chronic
--- NOTE | 2017-01-19 14:34 | CP.PCM.PN ---
Subjective - Date & Time of Evaluation Date of Evaluation: 01/19/17 Time of Evaluation: 11:30 - Subjective Subjective: Podiatry Progress Note - Dr. Malik Pt seen at bedside today for right foot 5th digit gangrene. Pt denies any acute events overnight and says he feels fine at this time. Pt admits to an occasional stabbing pain along the outside of the foot near the toe that comes and goes. Pt says the Percocet helps to alleviate his pain. Pt denies any F/C/ N/V/CP/SOB. Objective - Vital Signs/Intake and Output Vital Signs (last 24 hours): Temp Pulse Resp BP Pulse Ox 97.9 F 82 20 121/75 96 01/19/17 08:14 01/19/17 08:14 01/19/17 08:14 01/19/17 10:01 01/19/17 08:14 Intake and Output: 01/19/17 01/19/17 06:59 18:59 Intake Total 600 480 Balance 600 480 - Medications Medications: Current Medications Carvedilol (Coreg) 25 mg PO BID [facility] Last Admin: 01/19/17 10:01 Dose: 25 mg Clopidogrel Bisulfate (Plavix) 75 mg PO DAILY [facility] Last Admin: 01/19/17 09:57 Dose: Not Given Enoxaparin Sodium (Lovenox) 40 mg SC DAILY [facility] Last Admin: 01/19/17 09:56 Dose: Not Given Gabapentin (Neurontin) 300 mg PO TID [facility] Last Admin: 01/19/17 14:23 Dose: 300 mg Ceftriaxone Sodium (Rocephin Iv 1 Gm Duplex) 50 mls @ 100 mls/hr IVPB Q24H [facility] Last Admin: 01/19/17 10:01 Dose: 100 mls/hr Insulin Aspart (Novolog) 0 unit SC ACHS [facility] PRN Reason: Protocol Last Admin: 01/19/17 12:44 Dose: Not Given Insulin Glargine (Lantus) 35 unit SC Q12 [facility] Last Admin: 01/19/17 09:56 Dose: Not Given Ipratropium [place] (Atrovent Hfa) 2 puff IH RQ6 PRN PRN Reason: Shortness of Breath Lisinopril (Zestril) 5 mg PO DAILY [facility] Last Admin: 01/19/17 09:56 Dose: 5 mg Multivitamins/Minerals (Therapeutic-M Tab) 1 tab PO DAILY [facility] Last Admin: 01/19/17 09:55 Dose: 1 tab Rosuvastatin Calcium (Crestor) 5 mg PO HS [facility] Last Admin: 01/18/17 22:03 Dose: 5 mg Sennosides (Senokot Tab) 8.6 mg PO DAILY [facility] Last Admin: 01/19/17 09:57 Dose: Not Given Thiamine HCl (Vitamin B1 Tab) 100 mg PO DAILY [facility] Last Admin: 01/19/17 09:55 Dose: 100 mg Zolpidem Tartrate (Ambien) 5 mg PO HS PRN PRN Reason: Insomnia - Labs Labs: 01/19/17 08:06 01/19/17 08:06 - Constitutional Appears: Well, Non-toxic, No Acute Distress - Extremities Exam Additional comments: Left leg above knee amputation noted; stable. Right lower extremity focused. Dressings are clean, dry, and intact with no strikethrough noted. VASC: DP and PT pulses non-palpable. Temperature gradient is warm to warm proximal to distal. Absent capillary digital refill time to 5th digit, remaining 4 digits capillary refill time <3 seconds. NEURO: Protective sensation grossly diminished along lateral aspect of foot. DERM: Right 5th digit degloved superficial skin of 5th digit with localized mix of dark ischemic discoloration and erythematous dermal tissue base. No active drainage noted. No malodor present. Daxa-wound erythema noted extending to lateral margin of 5th metatarsal-phalangeal joint. No other open wounds, lesion , or macerations noted. MUSK: No tenderness to deep palpation noted. No gross deformities noted. Pedal muscle strength graded 5/5 in all 4 major muscle groups. - Neurological Exam Neurological Exam: Alert, Awake, Oriented x3 - Psychiatric Exam Psychiatric exam: Normal Affect, Normal Mood Assessment and Plan - Assessment and Plan (Free Text) Assessment: 51 y/o diabetic male with right foot 5th digit gangrene secondary to peripheral vascular disease Plan: Pt was evaluated and treated at bedside Discussed plan with attending Dr. Malik Chart, labs, and vitals reviewed - afebrile, absent leukocytosis Ischemia and dry gangrene changes noted to right foot 5th digit Dressed R foot 4th digit with betadine and DSD Continue pain management with analgesics Wound cx results: MRSA, Klebsiella Pt to go for angio tomorrow Podiatry will continue to follow while in house
--- NOTE | 2017-01-19 20:10 | PN ---
DATE: SUBJECTIVE: The patient denies any chest pain. PHYSICAL EXAMINATION VITAL SIGNS: Blood pressure 121/75, heart rate 82, temperature 97.9, respirations 20. HEENT: Normocephalic. CHEST: Clear. HEART: S1 and S2, regular. EXTREMITIES: Left above-knee amputation. LABORATORY DATA: Hemoglobin and hematocrit 14.4 and 42.0, white count and platelet count are within normal limit. SMA-7; sodium 136, potassium 3.9, chloride 103, CO2 of 24, glucose 122, BUN 6, creatinine 0.5. ASSESSMENT: 1. Peripheral vascular disease, status post left above-knee amputation, with significant graft and [place] disease of the right leg. 2. Diabetes mellitus. 3. Hypertension. 4. Methicillin-resistant Staphylococcus aureus infection of the right foot. RECOMMENDATIONS: Continue current Coreg 25 mg twice a day, Crestor 5 mg once a day, Lovenox 40 mg subcutaneously once a day, Rocephin 1 g intravenously daily, Zestril 5 mg once a day. Echo will be performed tomorrow. Christiano Oviedo MD
--- NOTE | 2017-01-20 00:04 | CP.PCM.PN ---
Subjective - Date & Time of Evaluation Date of Evaluation: 01/19/17 Time of Evaluation: 08:00 - Subjective Subjective: VASCULAR SURGERY PROGRESS NOTE FOR DR. PHILLIPS Patient seen and examined at bedside. He reports pain in his right foot. States he just changed his dressing. Objective - Vital Signs/Intake and Output Vital Signs (last 24 hours): Temp Pulse Resp BP Pulse Ox 98 F 78 20 128/90 99 01/19/17 15:05 01/19/17 15:05 01/19/17 15:05 01/19/17 17:37 01/19/17 15:05 Intake and Output: 01/19/17 01/20/17 18:59 06:59 Intake Total 480 600 Balance 480 600 - Medications Medications: Current Medications Carvedilol (Coreg) 25 mg PO BID [facility] Last Admin: 01/19/17 17:37 Dose: 25 mg Clopidogrel Bisulfate (Plavix) 75 mg PO DAILY [facility] Last Admin: 01/19/17 09:57 Dose: Not Given Enoxaparin Sodium (Lovenox) 40 mg SC DAILY [facility] Last Admin: 01/19/17 09:56 Dose: Not Given Gabapentin (Neurontin) 300 mg PO TID [facility] Last Admin: 01/19/17 17:37 Dose: 300 mg Ceftriaxone Sodium (Rocephin Iv 1 Gm Duplex) 50 mls @ 100 mls/hr IVPB Q24H [facility] Last Admin: 01/19/17 10:01 Dose: 100 mls/hr Insulin Aspart (Novolog) 0 unit SC ACHS [facility] PRN Reason: Protocol Last Admin: 01/19/17 21:39 Dose: Not Given Insulin Glargine (Lantus) 35 unit SC Q12 [facility] Last Admin: 01/19/17 21:37 Dose: Not Given Ipratropium [place] (Atrovent Hfa) 2 puff IH RQ6 PRN PRN Reason: Shortness of Breath Lisinopril (Zestril) 5 mg PO DAILY [facility] Last Admin: 01/19/17 09:56 Dose: 5 mg Multivitamins/Minerals (Therapeutic-M Tab) 1 tab PO DAILY [facility] Last Admin: 01/19/17 09:55 Dose: 1 tab Ondansetron HCl (Zofran Inj) 4 mg IVP Q6H PRN PRN Reason: Nausea/Vomiting Last Admin: 01/19/17 17:59 Dose: 4 mg Oxycodone/Acetaminophen (Percocet 5/325 Mg Tab) 2 tab PO Q4H PRN PRN Reason: Pain, moderate (4-7) Stop: 01/22/17 17:41 Last Admin: 01/19/17 22:55 Dose: 2 tab Rosuvastatin Calcium (Crestor) 5 mg PO HS [facility] Last Admin: 01/19/17 21:37 Dose: 5 mg Sennosides (Senokot Tab) 8.6 mg PO DAILY [facility] Last Admin: 01/19/17 09:57 Dose: Not Given Thiamine HCl (Vitamin B1 Tab) 100 mg PO DAILY [facility] Last Admin: 01/19/17 09:55 Dose: 100 mg Zolpidem Tartrate (Ambien) 5 mg PO HS PRN PRN Reason: Insomnia - Labs Labs: 01/19/17 08:06 01/19/17 08:06 - Constitutional Appears: Non-toxic, No Acute Distress - Respiratory Exam Respiratory Exam: NORMAL BREATHING PATTERN. absent: Respiratory Distress - Cardiovascular Exam Cardiovascular Exam: +S1, +S2 - Extremities Exam Additional comments: Left AKA Right foot dressing c/d/i Assessment and Plan - Assessment and Plan (Free Text) Assessment: 51yo M with PVD with right toe gangrene. + for MRSA - Angio tomorrow pending cardiac clearance - NPO past midnight - May continue Lovenox - Elevate right foot - Continue Abx - Per cardio note: ECHO will be done tomorrow - Discussed plan with Dr. Pradeep Shaw PGY-3
--- NOTE | 2017-01-20 03:12 | CARD ---
APPROVED REPORT EKG Measurement Heart [id number] FL [id number] <Conclusion> Normal sinus rhythm Possible Inferior infarct, age undetermined Anterior infarct, age undetermined Abnormal ECG
[2017-01-20] MEDS: (Novolog) Insulin Aspart, Recombinant 100 u/ml 10 ml vial SC SCH ×4 (07:58→21:51)
[2017-01-20 08:02] LABS: HEMATOCRIT 45.2 % (35.0-51.0); MEAN CELL VOLUME 99.7 fL (80.0-94.0); MEAN CORPUSCULAR HEMOGLOBIN 33.9 pg (27.0-31.0); MEAN PLATELET VOLUME 8.9 fL (7.2-11.7); WHITE BLOOD COUNT 11.1 K/uL (4.8-10.8)
[2017-01-20 09:06] LABS: ALB/GLOB RATIO 0.7 (1.0-2.1); ALKALINE PHOSPHATASE 120 U/L (38-126); ALT/SGPT 43 U/L (21-72); AST/SGOT 37 U/L (17-59); BILIRUBIN,TOTAL 0.6 mg/dL (0.2-1.3); BLOOD UREA NITROGEN 8 mg/dL (9-20); CALCIUM 8.1 mg/dl (8.6-10.4); CARBON DIOXIDE 27 mmol/L (22-30); CHLORIDE 102 mmol/L (98-107); GFR AFRICAN-AMERICAN > 60; GLUCOSE,RANDOM 95 mg/dL (75-110); POTASSIUM 4.5 mmol/L (3.6-5.2); SODIUM 134 mmol/L (132-148); TOTAL PROTEIN 7.5 g/dL (6.3-8.3)
[2017-01-20] MEDS: (Lantus) Insulin Glargine, Recombinant SC SCH ×2 (10:40→21:48)
[2017-01-20] MEDS: cefTRIAXone IV 1 gm in Dextros 50 ML IVPB SCH (10:41)
[2017-01-20] MEDS: Multivitamin With Minerals Tab PO SCH (10:43)
[2017-01-20] MEDS: Enoxaparin 40 mg Syringe SC SCH (10:43)
--- NOTE | 2017-01-20 12:06 | CP.PCM.PN ---
Subjective - Date & Time of Evaluation Date of Evaluation: 01/20/17 Time of Evaluation: 12:06 - Subjective Subjective: Podiatry Progress Note - Dr. Malik 51 year old male was seen at bedside today for right foot 5th digit gangrene. He admits that he is going to have a procedure today. He admits to an occasional stabbing pain along the outside of the foot near the toe that comes and goes. Pt says the Percocet helps to alleviate his pain. Pt denies any F/C/ N/V/CP/SOB. Objective - Vital Signs/Intake and Output Vital Signs (last 24 hours): Temp Pulse Resp BP Pulse Ox 98.4 F 84 20 111/78 100 01/20/17 08:16 01/20/17 08:16 01/20/17 08:16 01/20/17 08:16 01/20/17 08:16 Intake and Output: 01/20/17 01/20/17 06:59 18:59 Intake Total 600 Balance 600 - Medications Medications: Current Medications Carvedilol (Coreg) 25 mg PO BID [facility] Last Admin: 01/20/17 10:40 Dose: Not Given Clopidogrel Bisulfate (Plavix) 75 mg PO DAILY [facility] Last Admin: 01/20/17 10:42 Dose: Not Given Enoxaparin Sodium (Lovenox) 40 mg SC DAILY [facility] Last Admin: 01/20/17 10:43 Dose: Not Given Gabapentin (Neurontin) 300 mg PO TID [facility] Last Admin: 01/20/17 10:43 Dose: Not Given Ceftriaxone Sodium (Rocephin Iv 1 Gm Duplex) 50 mls @ 100 mls/hr IVPB Q24H [facility] Last Admin: 01/20/17 10:41 Dose: 100 mls/hr Insulin Aspart (Novolog) 0 unit SC ACHS [facility] PRN Reason: Protocol Last Admin: 01/20/17 07:58 Dose: Not Given Insulin Glargine (Lantus) 35 unit SC Q12 [facility] Last Admin: 01/20/17 10:40 Dose: Not Given Ipratropium [place] (Atrovent Hfa) 2 puff IH RQ6 PRN PRN Reason: Shortness of Breath Lisinopril (Zestril) 5 mg PO DAILY [facility] Last Admin: 01/20/17 10:43 Dose: Not Given Multivitamins/Minerals (Therapeutic-M Tab) 1 tab PO DAILY [facility] Last Admin: 01/20/17 10:43 Dose: Not Given Ondansetron HCl (Zofran Inj) 4 mg IVP Q6H PRN PRN Reason: Nausea/Vomiting Last Admin: 01/19/17 17:59 Dose: 4 mg Oxycodone/Acetaminophen (Percocet 5/325 Mg Tab) 2 tab PO Q4H PRN PRN Reason: Pain, moderate (4-7) Stop: 01/22/17 17:41 Last Admin: 01/19/17 22:55 Dose: 2 tab Rosuvastatin Calcium (Crestor) 5 mg PO HS [facility] Last Admin: 01/19/17 21:37 Dose: 5 mg Sennosides (Senokot Tab) 8.6 mg PO DAILY [facility] Last Admin: 01/20/17 10:43 Dose: Not Given Thiamine HCl (Vitamin B1 Tab) 100 mg PO DAILY [facility] Last Admin: 01/20/17 10:43 Dose: Not Given Zolpidem Tartrate (Ambien) 5 mg PO HS PRN PRN Reason: Insomnia - Labs Labs: 01/20/17 07:49 01/20/17 07:49 PT 11.9 SECONDS (9.7-12.2) 01/20/17 07:49 INR 1.0 01/20/17 07:49 APTT 32 SECONDS (21-34) 01/20/17 07:49 - Constitutional Appears: Well, Non-toxic, No Acute Distress - Extremities Exam Additional comments: Left leg above knee amputation noted. Right lower extremity focused. Dressings are clean, dry, and intact. VASC: DP and PT pulses non-palpable. Temperature gradient is warm to warm proximal to distal. Absent capillary digital refill time to 5th digit, remaining 4 digits capillary refill time <3 seconds. NEURO: Protective sensation grossly diminished along lateral aspect of foot. DERM: Right 5th digit degloved superficial skin of 5th digit with localized mix of dark ischemic discoloration and erythematous dermal tissue base. No active drainage noted. No malodor present. Daxa-wound erythema noted extending to lateral margin of 5th metatarsal-phalangeal joint. No other open wounds, lesion , or macerations noted. MUSK: No tenderness to deep palpation noted. No gross deformities noted. Pedal muscle strength graded 5/5 in all 4 major muscle groups. - Neurological Exam Neurological Exam: Alert, Awake, Oriented x3 - Psychiatric Exam Psychiatric exam: Normal Affect, Normal Mood Assessment and Plan - Assessment and Plan (Free Text) Assessment: 51 year old diabetic male with right foot 5th digit gangrene secondary to peripheral vascular disease Plan: Patient was evaluated and treated at bedside Discussed with attending Dr. Malik Chart, labs, and vitals reviewed - afebrile, WBC 11.1 Ischemia and dry gangrene changes noted to right foot 5th digit Dressed R foot 4th digit with betadine and DSD Continue pain management with analgesics Wound cx results: MRSA, Klebsiella Podiatry will continue to follow while in house
[2017-01-20] MEDS ORDERED: HYDROmorphone 0.5 mg/0.5 ml ISec IVP PRN (12:28)
[2017-01-20] MEDS ORDERED: Iodixanol 320 MG/ML 200 ML BOTTLE IV ONE (14:09)
[2017-01-20] MEDS ORDERED: Iodixanol 320 MG/ML 100 ML BOTTLE IV ONE ×2 (14:10→14:28)
[2017-01-20] MEDS ORDERED: Propofol 10 mg/ml Inj (20 ML) ONE ×3 (14:23→14:31)
[2017-01-20] MEDS ORDERED: Midazolam 2 MG/2 ML VIAL ONE ×3 (14:23→15:15)
[2017-01-20] MEDS ORDERED: Lidocaine 2% Inj (20ml) ONE (14:32)
[2017-01-20] MEDS ORDERED: Phenylephrine 10 mg/ml Inj ONE (14:43)
[2017-01-20] MEDS ORDERED: Etomidate 20 mg/10ml Inj IV ONE (14:46)
--- NOTE | 2017-01-20 16:17 | PCM.SURG1 ---
Surgeon's Initial Post Op Note - Surgeon's Notes Surgeon: rosenda Cardiology Clinical Consultant: 0 Type of Anesthesia: IV Sedation Anesthesia Administered By: elton Pre-Operative Diagnosis: gangrene right 5th toe Operative Findings: 90% stenosis mid right sfa Post-Operative Diagnosis: same Operation Performed: selective right leg angiogram. pathway atherectomy right sfa. 5.5 supera stent. pressure closure right groin Specimen/Specimens Removed: 0 Estimated Blood Loss: EBL {In ML}: 50 Blood Products Given: N/A Drains Used: No Drains Post-Op Condition: Good Date of Surgery/Procedure: 01/20/17 Time of Surgery/Procedure: 16:18
[2017-01-20] MEDS: Oxycodone/Acetaminophen 5/325 mg Tab PO PRN ×2 (19:01→23:03)
--- NOTE | 2017-01-20 21:58 | PN ---
SUBJECTIVE: The patient denies chest pain. 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 PHYSICAL EXAMINATION: VITAL SIGNS: Blood pressure 111/78, heart rate 84, temperature 98.4, and respirations 20. HEENT: Head is normocephalic. CHEST: Clear. HEART: S1, S2 regular. EXTREMITIES: No edema. LABORATORY DATA: Today's BUN and creatinine are 8 and 0.6 respectively. The rest of his SMA-7 is within normal limits. Calcium is slightly below normal at 8.1. Today's white count is 11.1. Hemoglobin, hematocrit, and platelet count are within normal limit. ASSESSMENT: 1. Peripheral vascular disease, status post left above-knee amputation. 2. Diabetes mellitus. RECOMMENDATIONS: I will review the echocardiographic study performed today and the patient will undergo peripheral vascular intervention by Dr. Fernández today. Case was discussed with Dr. Fernández in the Shipping [employer]. Christiano Oviedo MD
--- NOTE | 2017-01-20 22:04 | CP.PCM.PN ---
Subjective - Date & Time of Evaluation Date of Evaluation: 01/20/17 Time of Evaluation: 20:00 - Subjective Subjective: Pt is on post op care, s/p procedure, no complications. Pt is awake, alert, no chest pain Objective - Vital Signs/Intake and Output Vital Signs (last 24 hours): Temp Pulse Resp BP Pulse Ox 98.4 F 84 20 131/94 H 100 01/20/17 08:16 01/20/17 08:16 01/20/17 08:16 01/20/17 18:59 01/20/17 08:16 Intake and Output: 01/20/17 01/21/17 18:59 06:59 Intake Total 0 Balance 0 - Medications Medications: Current Medications Carvedilol (Coreg) 25 mg PO BID [facility] Last Admin: 01/20/17 18:59 Dose: 25 mg Clopidogrel Bisulfate (Plavix) 75 mg PO DAILY [facility] Last Admin: 01/20/17 10:42 Dose: Not Given Enoxaparin Sodium (Lovenox) 40 mg SC DAILY [facility] Last Admin: 01/20/17 10:43 Dose: Not Given Gabapentin (Neurontin) 300 mg PO TID [facility] Last Admin: 01/20/17 19:00 Dose: 300 mg Hydromorphone HCl (Dilaudid) 0.5 mg IVP Q4H PRN PRN Reason: Pain, severe (8-10) Last Admin: 01/20/17 12:38 Dose: 0.5 mg Ceftriaxone Sodium (Rocephin Iv 1 Gm Duplex) 50 mls @ 100 mls/hr IVPB Q24H [facility] Last Admin: 01/20/17 10:41 Dose: 100 mls/hr Insulin Aspart (Novolog) 0 unit SC ACHS [facility] PRN Reason: Protocol Last Admin: 01/20/17 21:51 Dose: Not Given Insulin Glargine (Lantus) 35 unit SC Q12 [facility] Last Admin: 01/20/17 21:48 Dose: Not Given Ipratropium [place] (Atrovent Hfa) 2 puff IH RQ6 PRN PRN Reason: Shortness of Breath Lisinopril (Zestril) 5 mg PO DAILY [facility] Last Admin: 01/20/17 10:43 Dose: Not Given Multivitamins/Minerals (Therapeutic-M Tab) 1 tab PO DAILY [facility] Last Admin: 01/20/17 10:43 Dose: Not Given Ondansetron HCl (Zofran Inj) 4 mg IVP Q6H PRN PRN Reason: Nausea/Vomiting Last Admin: 01/19/17 17:59 Dose: 4 mg Oxycodone/Acetaminophen (Percocet 5/325 Mg Tab) 2 tab PO Q4H PRN PRN Reason: Pain, moderate (4-7) Stop: 01/22/17 17:41 Last Admin: 01/20/17 19:01 Dose: 2 tab Rosuvastatin Calcium (Crestor) 5 mg PO HS [facility] Last Admin: 01/20/17 21:50 Dose: 5 mg Sennosides (Senokot Tab) 8.6 mg PO DAILY [facility] Last Admin: 01/20/17 10:43 Dose: Not Given Thiamine HCl (Vitamin B1 Tab) 100 mg PO DAILY [facility] Last Admin: 01/20/17 10:43 Dose: Not Given Zolpidem Tartrate (Ambien) 5 mg PO HS PRN PRN Reason: Insomnia - Labs Labs: 01/20/17 07:49 01/20/17 07:49 PT 11.9 SECONDS (9.7-12.2) 01/20/17 07:49 INR 1.0 01/20/17 07:49 APTT 32 SECONDS (21-34) 01/20/17 07:49 - Constitutional Appears: No Acute Distress - Head Exam Head Exam: ATRAUMATIC, NORMAL INSPECTION, NORMOCEPHALIC - Eye Exam Eye Exam: EOMI, Normal appearance, PERRL Pupil Exam: NORMAL ACCOMODATION, PERRL - Respiratory Exam Respiratory Exam: Clear to Ausculation Bilateral, NORMAL BREATHING PATTERN - Cardiovascular Exam Cardiovascular Exam: REGULAR RHYTHM, +S1, +S2. absent: Murmur - GI/Abdominal Exam GI & Abdominal Exam: Soft, Normal Bowel Sounds. absent: Tenderness - Neurological Exam Neurological Exam: Alert, Awake Assessment and Plan (1) Gangrene of toe of right foot Status: Acute (2) Diabetes mellitus Status: Chronic (3) PAD (peripheral artery disease) Status: Chronic
--- NOTE | 2017-01-20 23:50 | CARD ---
APPROVED REPORT EXAM: Two-dimensional and M-mode echocardiogram with Doppler and color Doppler. Other Information Quality : Good[employer] : INDICATION Pre-Op 2D DIMENSIONS IVSd0.9 (0.7-1.1cm)LVDd4.7 (3.9-5.9cm) PWd0.9 (0.7-1.1cm)LVDs2.9 (2.5-4.0cm) FS (%) 38.0 %LVEF (%)68.2 (>50%) M-Mode DIMENSIONS Left Atrium (MM)3.74 (2.5-4.0cm)Aortic Root3.12 (2.2-3.7cm) Aortic Cusp Exc.2.14 (1.5-2.0cm) Mitral Valve MV E Pzdcaeun52.8cm/sMV A Squfxwby35.1cm/sE/A ratio0.9 TDI E/Lateral E'0.0E/Medial E'0.0 Tricuspid Valve TR Peak [id number]/sTR Peak Gr.[id number] LEFT VENTRICLE The left ventricle is normal size. There is normal left ventricular wall thickness. Left ventricle systolic function is normal. The Ejection Fraction is 65-70%. There is normal LV segmental wall motion. Transmitral Doppler flow pattern is Grade I-abnormal relaxation pattern. There is no ventricular septal defect visualized. RIGHT VENTRICLE The right ventricle is normal size. The right ventricular systolic function is normal. ATRIA The left atrium is moderately dilated. The right atrium size is normal. AORTIC VALVE The aortic valve is mildly sclerotic. The aortic valve is tri-cuspid. No aortic regurgitation is present. There is no aortic valvular stenosis. MITRAL VALVE Mitral annular calcification is mild. There is no evidence of mitral valve prolapse. Mitral regurgitation is trace. TRICUSPID VALVE The tricuspid valve is normal in structure. There is trace tricuspid regurgitation. Right ventricular systolic pressure is estimated at 30-40 mmHg. There is mild pulmonary hypertension. PULMONIC VALVE The pulmonary valve is normal in structure. There is trace pulmonic valvular regurgitation. GREAT VESSELS The aortic root is normal in size. The ascending aorta is normal in size. The IVC is normal in size and collapses >50% with inspiration. PERICARDIAL EFFUSION There is no pericardial effusion. <Conclusion> Left ventricle systolic function is normal. The Ejection Fraction is 65-70%. Transmitral Doppler flow pattern is Grade I-abnormal relaxation pattern. Mitral regurgitation is trace. There is mild pulmonary hypertension.
[2017-01-21] MEDS: Oxycodone/Acetaminophen 5/325 mg Tab PO PRN ×4 (04:15→19:42)
[2017-01-21 07:18] LABS: ALB/GLOB RATIO 0.7 (1.0-2.1); ALKALINE PHOSPHATASE 96 U/L (38-126); ALT/SGPT 44 U/L (21-72); AST/SGOT 26 U/L (17-59); BILIRUBIN,TOTAL 0.5 mg/dL (0.2-1.3); BLOOD UREA NITROGEN 7 mg/dL (9-20); CALCIUM 7.9 mg/dl (8.6-10.4); CARBON DIOXIDE 27 mmol/L (22-30); CHLORIDE 102 mmol/L (98-107); GFR AFRICAN-AMERICAN > 60; GLUCOSE,RANDOM 107 mg/dL (75-110); SODIUM 135 mmol/L (132-148)
[2017-01-21] MEDS: (Novolog) Insulin Aspart, Recombinant 100 u/ml 10 ml vial SC SCH ×4 (08:03→21:18)
[2017-01-21] MEDS: (Lantus) Insulin Glargine, Recombinant SC SCH ×2 (09:09→21:20)
[2017-01-21] MEDS: Multivitamin With Minerals Tab PO SCH (09:12)
[2017-01-21] MEDS: Enoxaparin 40 mg Syringe SC SCH ×2 (09:13→09:17)
--- NOTE | 2017-01-21 09:54 | CP.PCM.PN ---
Subjective - Date & Time of Evaluation Date of Evaluation: 01/21/17 Time of Evaluation: 06:50 - Subjective Subjective: Vasc Sx: Dr Fernández Pt S&e. NAHeavenlyO. POD#1 s/p angio w/ selective cath of right SFA w/ stent placement. Pt states he has pain extending up foot into calf and popliteal fossa. Explain to pt pain likely 2/2 to reperfusion. Otherwise no complaints, denies f/c, n/v. Pulses appreciable with doppler at bedside Objective - Vital Signs/Intake and Output Vital Signs (last 24 hours): Temp Pulse Resp BP Pulse Ox 98.6 F 88 20 108/72 97 01/21/17 08:01 01/21/17 08:01 01/21/17 08:01 01/21/17 09:12 01/21/17 08:01 Intake and Output: 01/21/17 01/21/17 06:59 18:59 Intake Total 750 600 Balance 750 600 - Medications Medications: Current Medications Carvedilol (Coreg) 25 mg PO BID [facility] Last Admin: 01/21/17 09:12 Dose: 25 mg Clopidogrel Bisulfate (Plavix) 75 mg PO DAILY [facility] Last Admin: 01/21/17 09:12 Dose: 75 mg Enoxaparin Sodium (Lovenox) 40 mg SC DAILY [facility] Last Admin: 01/21/17 09:17 Dose: Not Given Gabapentin (Neurontin) 300 mg PO TID [facility] Last Admin: 01/21/17 09:12 Dose: 300 mg Hydromorphone HCl (Dilaudid) 0.5 mg IVP Q4H PRN PRN Reason: Pain, severe (8-10) Last Admin: 01/20/17 12:38 Dose: 0.5 mg Ceftriaxone Sodium (Rocephin Iv 1 Gm Duplex) 50 mls @ 100 mls/hr IVPB Q24H [facility] Last Admin: 01/20/17 10:41 Dose: 100 mls/hr Insulin Aspart (Novolog) 0 unit SC ACHS [facility] PRN Reason: Protocol Last Admin: 01/21/17 08:03 Dose: Not Given Insulin Glargine (Lantus) 35 unit SC Q12 [facility] Last Admin: 01/21/17 09:09 Dose: Not Given Ipratropium [place] (Atrovent Hfa) 2 puff IH RQ6 PRN PRN Reason: Shortness of Breath Lisinopril (Zestril) 5 mg PO DAILY [facility] Last Admin: 01/21/17 09:12 Dose: 5 mg Multivitamins/Minerals (Therapeutic-M Tab) 1 tab PO DAILY [facility] Last Admin: 01/21/17 09:12 Dose: 1 tab Ondansetron HCl (Zofran Inj) 4 mg IVP Q6H PRN PRN Reason: Nausea/Vomiting Last Admin: 01/19/17 17:59 Dose: 4 mg Oxycodone/Acetaminophen (Percocet 5/325 Mg Tab) 2 tab PO Q4H PRN PRN Reason: Pain, moderate (4-7) Stop: 01/22/17 17:41 Last Admin: 01/21/17 09:10 Dose: 2 tab Rosuvastatin Calcium (Crestor) 5 mg PO HS [facility] Last Admin: 01/20/17 21:50 Dose: 5 mg Sennosides (Senokot Tab) 8.6 mg PO DAILY [facility] Last Admin: 01/21/17 09:10 Dose: Not Given Thiamine HCl (Vitamin B1 Tab) 100 mg PO DAILY [facility] Last Admin: 01/21/17 09:12 Dose: 100 mg Zolpidem Tartrate (Ambien) 5 mg PO HS PRN PRN Reason: Insomnia Last Admin: 01/20/17 23:04 Dose: 5 mg - Labs Labs: 01/20/17 07:49 01/21/17 06:51 PT 11.9 SECONDS (9.7-12.2) 01/20/17 07:49 INR 1.0 01/20/17 07:49 APTT 32 SECONDS (21-34) 01/20/17 07:49 - Constitutional Appears: Non-toxic, No Acute Distress - Respiratory Exam Respiratory Exam: absent: Accessory Muscle Use, Respiratory Distress - Cardiovascular Exam Cardiovascular Exam: REGULAR RHYTHM. absent: Tachycardia - GI/Abdominal Exam GI & Abdominal Exam: absent: Tenderness - Extremities Exam Additional comments: right 5th toe gangrene unchanged, faintly dopplerable PT/DP, warm - Neurological Exam Neurological Exam: Alert, Awake, Oriented x3 - Psychiatric Exam Psychiatric exam: Normal Affect, Normal Mood Assessment and Plan - Assessment and Plan (Free Text) Assessment: 51M POD#1 s/p right SFA stent Plan: cont to monitor foot for adequate pulses and perfusion local wound care per podiatry will continue to monitor closely to see how foot responds to angio intervention d/w Dr Pradeep Abrams, PGY3
[2017-01-21] MEDS: cefTRIAXone IV 1 gm in Dextros 50 ML IVPB SCH (09:59)
--- NOTE | 2017-01-21 11:16 | CP.PCM.PN ---
Subjective - Date & Time of Evaluation Date of Evaluation: 01/21/17 Time of Evaluation: 11:16 - Subjective Subjective: Podiatry Progress Note for Dr. Malik 51 year old male was seen at bedside today regarding right foot 5th digit gangrene. He admits that yesterday he had an angio states that he has more pain to his RLE today than yesterday. Pt says the Percocet helps to alleviate his pain. HE denies any n/v/f/c/sob/cp. Objective - Vital Signs/Intake and Output Vital Signs (last 24 hours): Temp Pulse Resp BP Pulse Ox 98.6 F 88 20 108/72 97 01/21/17 08:01 01/21/17 08:01 01/21/17 08:01 01/21/17 09:12 01/21/17 08:01 Intake and Output: 01/21/17 01/21/17 06:59 18:59 Intake Total 750 600 Balance 750 600 - Medications Medications: Current Medications Carvedilol (Coreg) 25 mg PO BID [facility] Last Admin: 01/21/17 09:12 Dose: 25 mg Clopidogrel Bisulfate (Plavix) 75 mg PO DAILY [facility] Last Admin: 01/21/17 09:12 Dose: 75 mg Enoxaparin Sodium (Lovenox) 40 mg SC DAILY [facility] Last Admin: 01/21/17 09:17 Dose: Not Given Gabapentin (Neurontin) 300 mg PO TID [facility] Last Admin: 01/21/17 09:12 Dose: 300 mg Hydromorphone HCl (Dilaudid) 0.5 mg IVP Q4H PRN PRN Reason: Pain, severe (8-10) Last Admin: 01/20/17 12:38 Dose: 0.5 mg Insulin Aspart (Novolog) 0 unit SC ACHS [facility] PRN Reason: Protocol Last Admin: 01/21/17 08:03 Dose: Not Given Insulin Glargine (Lantus) 35 unit SC Q12 [facility] Last Admin: 01/21/17 09:09 Dose: Not Given Ipratropium [place] (Atrovent Hfa) 2 puff IH RQ6 PRN PRN Reason: Shortness of Breath Lisinopril (Zestril) 5 mg PO DAILY [facility] Last Admin: 01/21/17 09:12 Dose: 5 mg Multivitamins/Minerals (Therapeutic-M Tab) 1 tab PO DAILY [facility] Last Admin: 01/21/17 09:12 Dose: 1 tab Ondansetron HCl (Zofran Inj) 4 mg IVP Q6H PRN PRN Reason: Nausea/Vomiting Last Admin: 01/19/17 17:59 Dose: 4 mg Oxycodone/Acetaminophen (Percocet 5/325 Mg Tab) 2 tab PO Q4H PRN PRN Reason: Pain, moderate (4-7) Stop: 01/22/17 17:41 Last Admin: 01/21/17 09:10 Dose: 2 tab Rosuvastatin Calcium (Crestor) 5 mg PO HS [facility] Last Admin: 01/20/17 21:50 Dose: 5 mg Sennosides (Senokot Tab) 8.6 mg PO DAILY [facility] Last Admin: 01/21/17 09:10 Dose: Not Given Thiamine HCl (Vitamin B1 Tab) 100 mg PO DAILY [facility] Last Admin: 01/21/17 09:12 Dose: 100 mg Zolpidem Tartrate (Ambien) 5 mg PO HS PRN PRN Reason: Insomnia Last Admin: 01/20/17 23:04 Dose: 5 mg - Labs Labs: 01/20/17 07:49 01/21/17 06:51 PT 11.9 SECONDS (9.7-12.2) 01/20/17 07:49 INR 1.0 01/20/17 07:49 APTT 32 SECONDS (21-34) 01/20/17 07:49 - Constitutional Appears: Well, Non-toxic, No Acute Distress - Extremities Exam Additional comments: Left leg above knee amputation noted. Right lower extremity focused. Dressings are clean, dry, and intact. VASC: DP and PT pulses non-palpable. DP pulses was faintly monophasic upon doppler examination. Temperature gradient is warm to warm proximal to distal. Absent capillary digital refill time to 5th digit, remaining 4 digits capillary refill time <3 seconds. NEURO: Protective sensation grossly diminished. DERM: Dry gangrene noted to right 5th digit. No active drainage noted. No malodor present. Daxa-wound erythema noted extending to lateral margin of 5th metatarsal-phalangeal joint. No other open wounds, lesion, or macerations noted. Ortho: No tenderness to palpation noted. Pedal muscle strength graded 5/5 in all 4 major muscle groups. - Neurological Exam Neurological Exam: Alert, Awake, Oriented x3 - Psychiatric Exam Psychiatric exam: Normal Affect, Normal Mood Assessment and Plan - Assessment and Plan (Free Text) Assessment: 51 year old diabetic male with right foot 5th digit gangrene secondary to peripheral vascular disease Plan: Patient was evaluated and treated at bedside Discussed with attending Dr. Malik Chart, labs, and vitals reviewed - afebrile, WBC 11.1 (01/21/17) Ischemia and dry gangrene changes noted to right foot 5th digit Dressed R foot 5th digit with betadine and DSD Continue pain medications Continue IV abx Podiatry will continue to follow while in house
--- NOTE | 2017-01-21 13:16 | VAS ---
DATE: 01/20/2017 PREOPERATIVE DIAGNOSIS: Gangrene of right fifth toe. POSTOPERATIVE DIAGNOSIS: Gangrene of right fifth toe. PROCEDURES CARRIED OUT: Right femoral angiogram, pathway atherectomy of the right superficial femoral artery, balloon angioplasty and stenting using a Supera stent in the right superficial femoral artery in mid portion. SURGEON: Ridge Fernández Jr., MD REGISTERED ROUTE ASSOCIATE: None. ANESTHESIOLOGIST: Dr. Kaye ANESTHESIA: Local with sedation. INDICATIONS: A 51-year-old man with previous left above-knee amputation, no access on the left side. OPERATIVE FINDINGS: Using ultrasound guidance, we were able to puncture the right common femoral artery and direct a wire into the superficial femoral artery. With use of road-mapping technique, the lesion was crossed. This was subsequently exchanged for an 0.014 wire and a Pathway atherectomy without the use of an anti-embolization device was used. This was quite successful. We then ballooned this initially with a 5-mm and then deployed a 6-mm stent here after we used the drug-coated balloon and then finally deployed a Supera stent in this location, stacking it appropriately. The final result cosmetically was excellent with good flow into the leg. FINDINGS: 1. This is a puncture from the right. The reflux into the profunda femoris was widely patent and reflux into the superficial femoral artery showed approximately a 90% stenosis in its mid portion and a focal area of approximately 6 cm long. Distally, there was good runoff via the popliteal artery, which was brisk and the major runoff vessels into the foot were the anterior tibial artery and the peroneal artery and the posterior tibial artery appeared to be occluded. The anterior tibial was occluded all the way to the foot. The posterior tibial did not reconstitute. Thus, the operation carried out was a selective catheterization using an antegrade puncture of the right common femoral artery using ultrasound guidance. 2. Pathway atherectomy of the right superficial femoral artery and then balloon angioplasty of the right superficial femoral artery with deployment of a Supera stent. Pressure was applied to the right groin. There were multiple previous devices. Ultrasound images of the groin showed multiple previous devices in the groin, particularly a bypass graft and a widely patent artery. Successful puncture was carried out. Ridge Fernández Jr., MD
--- NOTE | 2017-01-21 17:14 | CP.PCM.PN ---
Subjective - Date & Time of Evaluation Date of Evaluation: 01/21/17 Time of Evaluation: 17:13 - Subjective Subjective: pt seen this evening for gangrene toe 5 rt . Objective - Vital Signs/Intake and Output Vital Signs (last 24 hours): Temp Pulse Resp BP Pulse Ox 98.6 F 88 20 108/72 97 01/21/17 08:01 01/21/17 08:01 01/21/17 08:01 01/21/17 09:12 01/21/17 08:01 Intake and Output: 01/21/17 01/21/17 06:59 18:59 Intake Total 750 880 Balance 750 880 - Medications Medications: Current Medications Carvedilol (Coreg) 25 mg PO BID [facility] Last Admin: 01/21/17 09:12 Dose: 25 mg Clopidogrel Bisulfate (Plavix) 75 mg PO DAILY [facility] Last Admin: 01/21/17 09:12 Dose: 75 mg Enoxaparin Sodium (Lovenox) 40 mg SC DAILY [facility] Last Admin: 01/21/17 09:17 Dose: Not Given Gabapentin (Neurontin) 300 mg PO TID [facility] Last Admin: 01/21/17 13:25 Dose: 300 mg Hydromorphone HCl (Dilaudid) 0.5 mg IVP Q4H PRN PRN Reason: Pain, severe (8-10) Last Admin: 01/20/17 12:38 Dose: 0.5 mg Vancomycin/Sodium Chloride (Vancomycin 1 Gm/Ns 200 Ml) 1 gm in 200 mls @ 133.333 mls/hr IVPB Q24H [facility] Piperacillin Sod/Tazobactam Sod (Zosyn 3.375 Gm Iv Premix) 3.375 gm in 50 mls @ 100 mls/hr IVPB Q8 [facility] Insulin Aspart (Novolog) 0 unit SC ACHS [facility] PRN Reason: Protocol Last Admin: 01/21/17 12:25 Dose: Not Given Insulin Glargine (Lantus) 35 unit SC Q12 [facility] Last Admin: 01/21/17 09:09 Dose: Not Given Ipratropium [place] (Atrovent Hfa) 2 puff IH RQ6 PRN PRN Reason: Shortness of Breath Lidocaine (Lidoderm) 1 ea TD Q24H [facility] Lisinopril (Zestril) 5 mg PO DAILY [facility] Last Admin: 01/21/17 09:12 Dose: 5 mg Multivitamins/Minerals (Therapeutic-M Tab) 1 tab PO DAILY [facility] Last Admin: 01/21/17 09:12 Dose: 1 tab Ondansetron HCl (Zofran Inj) 4 mg IVP Q6H PRN PRN Reason: Nausea/Vomiting Last Admin: 01/19/17 17:59 Dose: 4 mg Oxycodone/Acetaminophen (Percocet 5/325 Mg Tab) 2 tab PO Q4H PRN PRN Reason: Pain, moderate (4-7) Stop: 01/22/17 17:41 Last Admin: 01/21/17 13:25 Dose: 2 tab Rosuvastatin Calcium (Crestor) 5 mg PO HS [facility] Last Admin: 01/20/17 21:50 Dose: 5 mg Sennosides (Senokot Tab) 8.6 mg PO DAILY [facility] Last Admin: 01/21/17 09:10 Dose: Not Given Thiamine HCl (Vitamin B1 Tab) 100 mg PO DAILY [facility] Last Admin: 01/21/17 09:12 Dose: 100 mg Zolpidem Tartrate (Ambien) 5 mg PO HS PRN PRN Reason: Insomnia Last Admin: 01/20/17 23:04 Dose: 5 mg - Labs Labs: 01/20/17 07:49 01/21/17 06:51 PT 11.9 SECONDS (9.7-12.2) 01/20/17 07:49 INR 1.0 01/20/17 07:49 APTT 32 SECONDS (21-34) 01/20/17 07:49
[2017-01-21] MEDS: Lidocaine 5% Patch TD SCH (17:17)
[2017-01-21] MEDS ORDERED: Lidocaine 5% Patch TD SCH (18:00)
--- NOTE | 2017-01-21 18:23 | PN ---
SUBJECTIVE: The patient underwent right femoral angiogram, Pathway atherectomy of the right superficial femoral artery, balloon angioplasty and stenting using Supera stent in the right superficial femoral artery in mid portion. The patient denies any chest pain or shortness of breath at this time. PHYSICAL EXAMINATION: VITAL SIGNS: Blood pressure 108/72, heart rate 88, temperature 98.6, respirations 20. HEENT: Normocephalic. CHEST: Clear. HEART: S1, S2, regular. ABDOMEN: Soft. LABORATORY DATA: SMA-7: Sodium 135, potassium 4.0, chloride 102, CO2 of 27, glucose 107, BUN 7, creatinine 0.5. Echocardiographic study revealed normal ejection fraction, trace mitral insufficiency, and mild pulmonary hypertension. ASSESSMENT: 1. Peripheral vascular disease, status post left above knee amputation. 2. Gangrene of the right fifth toe, status post atherectomy and stenting to the right superficial femoral artery. 3. Diabetes mellitus. 4. Mild pulmonary hypertension. RECOMMENDATIONS: Continue Coreg 25 mg twice a day, Crestor 5 mg once a day, Lovenox 40 mg subcutaneously once a day, Zestril 5 mg once a day, thiamine 100 mg once a day. Christiano Oviedo MD
[2017-01-21] MEDS: Vancomycin 1 gm/NS 200 ml 1 GM/200 ML BAG IVPB SCH (19:48)
--- NOTE | 2017-01-21 21:54 | CP.PCM.PN ---
Subjective - Date & Time of Evaluation Date of Evaluation: 01/21/17 Time of Evaluation: 19:00 - Subjective Subjective: Pt seen and examined at bedside, c/o intese right leg pain on movement and he had an almost fall, when he was trying to get out of bed but he managed to hold the wheel chair and prevent full fall but he still c/o leg pain after that Objective - Vital Signs/Intake and Output Vital Signs (last 24 hours): Temp Pulse Resp BP Pulse Ox 99.7 F H 87 20 111/81 97 01/21/17 16:00 01/21/17 16:00 01/21/17 16:00 01/21/17 17:14 01/21/17 16:00 Intake and Output: 01/21/17 01/22/17 18:59 06:59 Intake Total 880 Balance 880 - Medications Medications: Current Medications Carvedilol (Coreg) 25 mg PO BID [facility] Last Admin: 01/21/17 17:14 Dose: 25 mg Clopidogrel Bisulfate (Plavix) 75 mg PO DAILY [facility] Last Admin: 01/21/17 09:12 Dose: 75 mg Enoxaparin Sodium (Lovenox) 40 mg SC DAILY [facility] Last Admin: 01/21/17 09:17 Dose: Not Given Gabapentin (Neurontin) 300 mg PO TID [facility] Last Admin: 01/21/17 17:14 Dose: 300 mg Hydromorphone HCl (Dilaudid) 0.5 mg IVP Q4H PRN PRN Reason: Pain, severe (8-10) Last Admin: 01/20/17 12:38 Dose: 0.5 mg Vancomycin/Sodium Chloride (Vancomycin 1 Gm/Ns 200 Ml) 1 gm in 200 mls @ 133.333 mls/hr IVPB Q24H [facility] Last Admin: 01/21/17 19:48 Dose: 133.333 mls/hr Piperacillin Sod/Tazobactam Sod (Zosyn 3.375 In Ns 100ml) 100 mls @ 200 mls/hr IVPB Q8 [facility] Last Admin: 01/21/17 21:23 Dose: 200 mls/hr Insulin Aspart (Novolog) 0 unit SC ACHS [facility] PRN Reason: Protocol Last Admin: 01/21/17 21:18 Dose: Not Given Insulin Glargine (Lantus) 35 unit SC Q12 [facility] Last Admin: 01/21/17 21:20 Dose: Not Given Ipratropium [place] (Atrovent Hfa) 2 puff IH RQ6 PRN PRN Reason: Shortness of Breath Lidocaine (Lidoderm) 1 ea TD Q24H [facility] Last Admin: 01/21/17 17:17 Dose: 1 ea Lisinopril (Zestril) 5 mg PO DAILY [facility] Last Admin: 01/21/17 09:12 Dose: 5 mg Multivitamins/Minerals (Therapeutic-M Tab) 1 tab PO DAILY [facility] Last Admin: 01/21/17 09:12 Dose: 1 tab Ondansetron HCl (Zofran Inj) 4 mg IVP Q6H PRN PRN Reason: Nausea/Vomiting Last Admin: 01/19/17 17:59 Dose: 4 mg Oxycodone/Acetaminophen (Percocet 5/325 Mg Tab) 2 tab PO Q4H PRN PRN Reason: Pain, moderate (4-7) Stop: 01/22/17 17:41 Last Admin: 01/21/17 19:42 Dose: 2 tab Rosuvastatin Calcium (Crestor) 5 mg PO HS [facility] Last Admin: 01/21/17 21:23 Dose: 5 mg Sennosides (Senokot Tab) 8.6 mg PO DAILY [facility] Last Admin: 01/21/17 09:10 Dose: Not Given Thiamine HCl (Vitamin B1 Tab) 100 mg PO DAILY [facility] Last Admin: 01/21/17 09:12 Dose: 100 mg Zolpidem Tartrate (Ambien) 5 mg PO HS PRN PRN Reason: Insomnia Last Admin: 01/20/17 23:04 Dose: 5 mg - Labs Labs: 01/20/17 07:49 01/21/17 06:51 PT 11.9 SECONDS (9.7-12.2) 01/20/17 07:49 INR 1.0 01/20/17 07:49 APTT 32 SECONDS (21-34) 01/20/17 07:49 - Constitutional Appears: No Acute Distress - Head Exam Head Exam: ATRAUMATIC, NORMAL INSPECTION, NORMOCEPHALIC - Eye Exam Eye Exam: EOMI, Normal appearance, PERRL Pupil Exam: NORMAL ACCOMODATION, PERRL - Respiratory Exam Respiratory Exam: Clear to Ausculation Bilateral, NORMAL BREATHING PATTERN - Cardiovascular Exam Cardiovascular Exam: REGULAR RHYTHM, +S1, +S2. absent: Murmur - GI/Abdominal Exam GI & Abdominal Exam: Soft, Normal Bowel Sounds. absent: Tenderness - Neurological Exam Neurological Exam: Alert, Awake - Skin Skin Exam: Erythema, Vesicles Additional comments: PVD in LE Assessment and Plan (1) Gangrene of toe of right foot Status: Acute (2) Diabetes mellitus Status: Chronic (3) PAD (peripheral artery disease) Status: Chronic
[2017-01-21] MEDS ORDERED: Piperacill/Tazo 3.375gm in Dex 3.375 GM/50 ML BAG IVPB SCH (22:00)
[2017-01-21] MEDS ORDERED: Piperacillin/Tazobact 3.375 GM in Sodium Chloride 0.9% 100 ML IVPB SCH (22:00)
[2017-01-21] MEDS ORDERED: Piperacillin/Tazobact 3.375 gm 100 ML IVPB SCH (22:00)
--- NOTE | 2017-01-21 22:03 | CP.PCM.CON ---
History of Present Illness - History of Present Illness History of Present Illness: INFECTIOUS DISEASE CONSULT; HPI; 51yo M with extensive PVD history came to the ED on 01/15/17 due to a discolored right 5th toe. Patient stated he noticed worsening pain in his right foot two weeks ago and then noticed discoloration of his right 5th toe 5 days ago. He describes the toe as "black/blue and he pulled off his skin" and noted worsening pain. Patient also noticed swelling and numbness in his foot, slowly worsening. Patient denied trauma to the area. Denies fever, chills, nausea, or vomiting. Patient was seen by vascular surgery and podiatry. Patient status post selective right leg angiogram and atherectomy right SFA/ 5.5 supera stent placement on 01/20/17. Wound cultures came back positive for MRSA and Klebsiella ozaena.. Infectious disease consultation requested by PMD for IV antibiotics and evaluation off right foot gangrene fifth toe. PMHx: Anxiety, asthma/COPD, PVD, DM, HTN, HLD PSHx: Left BKA in 07/2015, Ex Lap low anterior bowel resection and closure of bladder fistula in 11/2015, Fem-Fem [place] [facility] [place] Social Hx: smokes 1-1.5 packs per day for 40 years, alcohol 1 pt of vodka per day, smokes marijuana occasionally. Lives with brother ALLERGY; [employer]S; SEE MARS. Review of Systems - Constitutional Constitutional: absent: Chills, Fever - EENT Eyes: absent: Change in Vision Nose/Mouth/Throat: absent: Dysphagia, Mouth Lesions - Cardiovascular Cardiovascular: absent: Chest Pain, Dyspnea, Dyspnea on Exertion, Edema - Respiratory Respiratory: absent: Cough, Hemoptysis, Change in Mucous Color - Gastrointestinal Gastrointestinal: absent: Abdominal Pain, Constipation, Diarrhea, Nausea, Vomiting - Genitourinary Genitourinary: absent: Dysuria, Hematuria - Musculoskeletal Musculoskeletal: Abnormal Gait (LEFT ABOVE-KNEE AMPUTATION. 2015) - Integumentary Integumentary: Dry Skin - Neurological Neurological: absent: Headaches - Endocrine Endocrine: As Per HPI - Hematologic/Lymphatic Hematologic: As Per HPI. 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 - MUSCULOSKELETAL/RHEUMATOLOGICAL Hx Falls: No - GASTROINTESTINAL Hx Diverticulitis: Yes Hx Gastritis: Yes - GENITOURINARY/GYNECOLOGICAL Hx Genitourinary Disorders: Yes Hx Urinary Tract Infection: Yes Other/Comment: PT STATES HE HAS BROWN URINE AND SOME FECAL MATERIAL IN HIS URINE. - PSYCHIATRIC Hx Substance Use: No - SURGICAL HISTORY Hx Surgeries: Yes Hx Amputation: Yes (LEFT BKA) Hx Angiogram: Yes Hx Cardiac Catheterization: Yes Hx Femoral-Popliteal Bypass Graft: Yes (X 3) Hx Vascular Surgery: Yes Other/Comment: Vascular bypass surgery femoral bilateral 2011,LT. BELOW KNEE AMPUTATION - ANESTHESIA Hx Anesthesia: Yes Hx Anesthesia Reactions: No Hx Malignant Hyperthermia: No Meds Allergies/Adverse Reactions: Allergies Allergy/AdvReac Type Severity Reaction Status Date / Time No Known Allergies Allergy Verified 01/15/17 12:37 - Medications Medications: Current Medications Carvedilol (Coreg) 25 mg PO BID [facility] Last Admin: 01/21/17 17:14 Dose: 25 mg Clopidogrel Bisulfate (Plavix) 75 mg PO DAILY [facility] Last Admin: 01/21/17 09:12 Dose: 75 mg Enoxaparin Sodium (Lovenox) 40 mg SC DAILY [facility] Last Admin: 01/21/17 09:17 Dose: Not Given Gabapentin (Neurontin) 300 mg PO TID [facility] Last Admin: 01/21/17 17:14 Dose: 300 mg Hydromorphone HCl (Dilaudid) 0.5 mg IVP Q4H PRN PRN Reason: Pain, severe (8-10) Last Admin: 01/20/17 12:38 Dose: 0.5 mg Vancomycin/Sodium Chloride (Vancomycin 1 Gm/Ns 200 Ml) 1 gm in 200 mls @ 133.333 mls/hr IVPB Q24H [facility] Last Admin: 01/21/17 19:48 Dose: 133.333 mls/hr Piperacillin Sod/Tazobactam Sod (Zosyn 3.375 In Ns 100ml) 100 mls @ 200 mls/hr IVPB Q8 [facility] Last Admin: 01/21/17 21:23 Dose: 200 mls/hr Insulin Aspart (Novolog) 0 unit SC ACHS [facility] PRN Reason: Protocol Last Admin: 01/21/17 21:18 Dose: Not Given Insulin Glargine (Lantus) 35 unit SC Q12 [facility] Last Admin: 01/21/17 21:20 Dose: Not Given Ipratropium [place] (Atrovent Hfa) 2 puff IH RQ6 PRN PRN Reason: Shortness of Breath Lidocaine (Lidoderm) 1 ea TD Q24H [facility] Last Admin: 01/21/17 17:17 Dose: 1 ea Lisinopril (Zestril) 5 mg PO DAILY [facility] Last Admin: 01/21/17 09:12 Dose: 5 mg Multivitamins/Minerals (Therapeutic-M Tab) 1 tab PO DAILY [facility] Last Admin: 01/21/17 09:12 Dose: 1 tab Ondansetron HCl (Zofran Inj) 4 mg IVP Q6H PRN PRN Reason: Nausea/Vomiting Last Admin: 01/19/17 17:59 Dose: 4 mg Oxycodone/Acetaminophen (Percocet 5/325 Mg Tab) 2 tab PO Q4H PRN PRN Reason: Pain, moderate (4-7) Stop: 01/22/17 17:41 Last Admin: 01/21/17 19:42 Dose: 2 tab Rosuvastatin Calcium (Crestor) 5 mg PO HS [facility] Last Admin: 01/21/17 21:23 Dose: 5 mg Sennosides (Senokot Tab) 8.6 mg PO DAILY [facility] Last Admin: 01/21/17 09:10 Dose: Not Given Thiamine HCl (Vitamin B1 Tab) 100 mg PO DAILY [facility] Last Admin: 01/21/17 09:12 Dose: 100 mg Zolpidem Tartrate (Ambien) 5 mg PO HS PRN PRN Reason: Insomnia Last Admin: 01/20/17 23:04 Dose: 5 mg Physical Exam - Constitutional Appears: No Acute Distress - Head Exam Head Exam: NORMAL INSPECTION - Eye Exam Eye Exam: EOMI, PERRL - ENT Exam ENT Exam: Normal Oropharynx - Neck Exam Neck exam: Positive for: Normal Inspection - Respiratory Exam Respiratory Exam: Clear to Auscultation Bilateral - Cardiovascular Exam Cardiovascular Exam: Tachycardia, REGULAR RHYTHM, +S1, +S2 - GI/Abdominal Exam GI & Abdominal Exam: Normal Bowel Sounds, Soft. absent: Tenderness - Extremities Exam Extremities exam: Positive for: pedal edema, tenderness (RIGHT LEG AND RIGHT FOOT. rIGHT FOOT FIFTH TOE METATARSAL GANGRENE AND DISCOLORED SKIN NOTED WITH FOUL ODOR. SEROSANGUINEOUS DRAINAGE ON THE DRESSING.). Negative for: calf tenderness - Neurological Exam Neurological exam: Alert, CN II-XII Intact, Oriented x3 - Skin Skin Exam: Normal Color, Warm Results - Vital Signs Recent Vital Signs: Last Vital Signs Temp 99.7 F H 01/21/17 16:00 Pulse 87 01/21/17 16:00 Resp 20 01/21/17 16:00 BP 111/81 01/21/17 17:14 Pulse Ox 97 01/21/17 16:00 - Labs Result Diagrams: 01/20/17 07:49 01/21/17 06:51 Labs: Laboratory Results - last 24 hr 01/20/17 01/21/17 01/21/17 21:48 06:51 07:19 Sodium 135 Potassium 4.0 Chloride 102 Carbon Dioxide 27 Anion Gap 9 L BUN 7 L Creatinine 0.5 L Est GFR ( Amer) > 60 Est GFR (Non-Af Amer) > 60 POC Glucose (mg/dL) 132 H 148 H Random Glucose 107 Calcium 7.9 L Total Bilirubin 0.5 AST 26 ALT 44 Alkaline Phosphatase 96 Total Protein 7.0 Albumin 2.9 L Globulin 4.1 H Albumin/Globulin Ratio 0.7 L 01/21/17 01/21/17 01/21/17 11:15 16:23 21:07 Sodium Potassium Chloride Carbon Dioxide Anion Gap BUN Creatinine Est GFR ( Amer) Est GFR (Non-Af Amer) POC Glucose (mg/dL) 189 H 186 H 125 H Random Glucose Calcium Total Bilirubin AST ALT Alkaline Phosphatase Total Protein Albumin Globulin Albumin/Globulin Ratio Assessment & Plan (1) Gangrene of toe of right foot Assessment and Plan: Wound cultures noted. +ve mrsa/Klebsiella ozaenae Intermediate to pip/tazo. Sensitive to- imipenem /meropenem/Cipro dc iv Zosyn Start IV Primaxin 500 mg every 8 hourly for better Klebsiella coverage. 01/22/17 Agree with IV vancomycin 1 g every 24 hourly for MRSA coverage.01/21/17. Vanco trough level prior to the fourth dose. Will discuss with podiatry DR. BEASLEY IF PLANNING SURGICAL INTERVENTION. WILL FOLLOW ALONG WITH YOU AND MAKE CHANGES NEEDED. Status: Acute (2) Peripheral vascular disease Assessment and Plan: PATIENT STATUS POST SELECTIVE RIGHT LEG ANGIOGRAM WITH ATHERECTOMY RT. SFA AND STENT PLACEMENT 01/20/17. Status: Chronic Priority: Low (3) HTN (hypertension) Status: Acute (4) Diabetes mellitus Status: Chronic (5) Above knee amputation of left lower extremity Assessment and Plan: S/P LT AKA Status: Acute
[2017-01-22] MEDS: Oxycodone/Acetaminophen 5/325 mg Tab PO PRN ×5 (03:37→22:38)
[2017-01-22] MEDS: (Novolog) Insulin Aspart, Recombinant 100 u/ml 10 ml vial SC SCH ×4 (07:26→21:10)
[2017-01-22 08:17] LABS: BASO # 0.1 K/uL (0.0-0.2); BASO % 0.7 % (0.0-2.0); EOS # 0.2 K/uL (0.0-0.7); EOS % 1.5 % (0.0-4.0); HEMATOCRIT 39.8 % (35.0-51.0); LYMPH # 1.2 K/uL (1.0-4.3); LYMPH % 11.3 % (20.0-40.0); MEAN CELL VOLUME 100.1 fL (80.0-94.0); MEAN CORPUSCULAR HEMOGLOBIN 34.4 pg (27.0-31.0); MEAN CORPUSCULAR HGB CONC 34.4 g/dL (33.0-37.0); MEAN PLATELET VOLUME 8.9 fL (7.2-11.7); MONO # 0.7 K/uL (0.0-0.8); MONO % 6.9 % (0.0-10.0); RED CELL DISTRIBUTION WIDTH 14.8 % (11.5-14.5); WHITE BLOOD COUNT 10.5 K/uL (4.8-10.8)
[2017-01-22 08:37] LABS: BLOOD UREA NITROGEN 6 mg/dL (9-20); CARBON DIOXIDE 23 mmol/L (22-30); CHLORIDE 100 mmol/L (98-107); GFR AFRICAN-AMERICAN > 60; GLUCOSE,RANDOM 174 mg/dL (75-110); SODIUM 132 mmol/L (132-148)
[2017-01-22 08:38] LABS: ALB/GLOB RATIO 0.9 (1.0-2.1); ALKALINE PHOSPHATASE 100 U/L (38-126); ALT/SGPT 37 U/L (21-72); AST/SGOT 30 U/L (17-59); BILIRUBIN,DIRECT 0.3 mg/dL (0.0-0.4); BILIRUBIN,TOTAL 0.4 mg/dL (0.2-1.3); CALCIUM 7.7 mg/dl (8.6-10.4); TOTAL PROTEIN 6.1 g/dL (6.3-8.3)
[2017-01-22] MEDS: Multivitamin With Minerals Tab PO SCH (09:55)
[2017-01-22] MEDS: Enoxaparin 40 mg Syringe SC SCH (09:55)
[2017-01-22] MEDS: (Lantus) Insulin Glargine, Recombinant SC SCH (10:00)
--- NOTE | 2017-01-22 13:19 | CP.PCM.PN ---
Subjective - Date & Time of Evaluation Date of Evaluation: 01/22/17 Time of Evaluation: 13:19 - Subjective Subjective: Podiatry Progress Note for Dr. Malik 51 year old male was seen at bedside today regarding right foot 5th digit gangrene. He is aware that he is going for surgery tomorrow morning for right 5th digit amputation. He denies any n/v/f/c/sob/cp. Objective - Vital Signs/Intake and Output Vital Signs (last 24 hours): Temp Pulse Resp BP Pulse Ox 98.1 F 83 20 110/72 98 01/22/17 09:01 01/22/17 09:01 01/22/17 09:01 01/22/17 09:55 01/22/17 09:01 Intake and Output: 01/22/17 01/22/17 06:59 18:59 Intake Total 850 250 Balance 850 250 - Medications Medications: Current Medications Carvedilol (Coreg) 25 mg PO BID [facility] Last Admin: 01/22/17 09:55 Dose: 25 mg Clopidogrel Bisulfate (Plavix) 75 mg PO DAILY [facility] Last Admin: 01/22/17 09:55 Dose: 75 mg Enoxaparin Sodium (Lovenox) 40 mg SC DAILY [facility] Last Admin: 01/22/17 09:55 Dose: Not Given Gabapentin (Neurontin) 300 mg PO TID [facility] Last Admin: 01/22/17 09:55 Dose: 300 mg Hydromorphone HCl (Dilaudid) 0.5 mg IVP Q4H PRN PRN Reason: Pain, severe (8-10) Last Admin: 01/20/17 12:38 Dose: 0.5 mg Vancomycin/Sodium Chloride (Vancomycin 1 Gm/Ns 200 Ml) 1 gm in 200 mls @ 133.333 mls/hr IVPB Q24H [facility] Last Admin: 01/21/17 19:48 Dose: 133.333 mls/hr Imipenem/Cilastatin Sodium 500 (mg/ Sodium Chloride) 100 mls @ 100 mls/hr IVPB Q8H [facility] Last Admin: 01/22/17 05:25 Dose: 100 mls/hr Insulin Aspart (Novolog) 0 unit SC ACHS [facility] PRN Reason: Protocol Last Admin: 01/22/17 12:30 Dose: Not Given Insulin Glargine (Lantus) 35 unit SC Q12 [facility] Last Admin: 01/22/17 10:00 Dose: Not Given Ipratropium [place] (Atrovent Hfa) 2 puff IH RQ6 PRN PRN Reason: Shortness of Breath Lidocaine (Lidoderm) 1 ea TD Q24H [facility] Last Admin: 01/21/17 17:17 Dose: 1 ea Lisinopril (Zestril) 5 mg PO DAILY [facility] Last Admin: 01/22/17 09:55 Dose: 5 mg Multivitamins/Minerals (Therapeutic-M Tab) 1 tab PO DAILY [facility] Last Admin: 01/22/17 09:55 Dose: 1 tab Ondansetron HCl (Zofran Inj) 4 mg IVP Q6H PRN PRN Reason: Nausea/Vomiting Last Admin: 01/19/17 17:59 Dose: 4 mg Oxycodone/Acetaminophen (Percocet 5/325 Mg Tab) 2 tab PO Q4H PRN PRN Reason: Pain, moderate (4-7) Stop: 01/22/17 17:41 Last Admin: 01/22/17 08:33 Dose: 2 tab Rosuvastatin Calcium (Crestor) 5 mg PO HS [facility] Last Admin: 01/21/17 21:23 Dose: 5 mg Sennosides (Senokot Tab) 8.6 mg PO DAILY [facility] Last Admin: 01/22/17 09:55 Dose: 8.6 mg Thiamine HCl (Vitamin B1 Tab) 100 mg PO DAILY [facility] Last Admin: 01/22/17 09:55 Dose: 100 mg Zolpidem Tartrate (Ambien) 5 mg PO HS PRN PRN Reason: Insomnia Last Admin: 01/20/17 23:04 Dose: 5 mg - Labs Labs: 01/22/17 08:07 01/22/17 08:07 PT 11.9 SECONDS (9.7-12.2) 01/20/17 07:49 INR 1.0 01/20/17 07:49 APTT 32 SECONDS (21-34) 01/20/17 07:49 - Constitutional Appears: Well, Non-toxic, No Acute Distress - Extremities Exam Additional comments: Left leg above knee amputation noted. Right lower extremity focused. Dressings are clean, dry, and intact. VASC: DP and PT pulses non-palpable. DP pulses was faintly monophasic upon doppler examination. Temperature gradient is warm to warm proximal to distal. Absent capillary digital refill time to 5th digit, remaining 4 digits capillary refill time <3 seconds. NEURO: Protective sensation grossly diminished. DERM: Dry gangrene noted to right 5th digit. No active drainage noted. No malodor present. Daxa-wound erythema noted extending to lateral margin of 5th metatarsal-phalangeal joint. No other open wounds, lesion, or macerations noted. Ortho: No tenderness to palpation noted. Pedal muscle strength graded 5/5 in all 4 major muscle groups. - Neurological Exam Neurological Exam: Alert, Awake, Oriented x3 - Psychiatric Exam Psychiatric exam: Normal Affect, Normal Mood Assessment and Plan - Assessment and Plan (Free Text) Assessment: 51 year old diabetic male with right foot 5th digit gangrene secondary to peripheral vascular disease Plan: Patient was evaluated and treated at bedside Discussed with attending Dr. Malik Chart, labs, and vitals reviewed - afebrile, WBC 10.5 Dressed R foot 5th digit with betadine and DSD Continue pain medications Continue IV abx Patient to OR tomorrow morning NPO after midnight lovenox held Medical optimization in chart Podiatry will continue to follow while in house
--- NOTE | 2017-01-22 14:17 | CP.PCM.PN ---
Subjective - Date & Time of Evaluation Date of Evaluation: 01/22/17 Time of Evaluation: 09:50 - Subjective Subjective: Vascular Surgery Dr. Fernández Pt S&E @bedside. NAEO. pt c/o continued pain in RLE. Pain controlled w/ current analgesic regimen. Pt deneis F/C, N/V. tolerating diet. Objective - Vital Signs/Intake and Output Vital Signs (last 24 hours): Temp Pulse Resp BP Pulse Ox 98.1 F 83 20 110/72 98 01/22/17 09:01 01/22/17 09:01 01/22/17 09:01 01/22/17 09:55 01/22/17 09:01 Intake and Output: 01/22/17 01/22/17 06:59 18:59 Intake Total 850 250 Balance 850 250 - Medications Medications: Current Medications Carvedilol (Coreg) 25 mg PO BID [facility] Last Admin: 01/22/17 09:55 Dose: 25 mg Clopidogrel Bisulfate (Plavix) 75 mg PO DAILY [facility] Last Admin: 01/22/17 09:55 Dose: 75 mg Enoxaparin Sodium (Lovenox) 40 mg SC DAILY [facility] Last Admin: 01/22/17 09:55 Dose: Not Given Gabapentin (Neurontin) 300 mg PO TID [facility] Last Admin: 01/22/17 13:46 Dose: 300 mg Hydromorphone HCl (Dilaudid) 0.5 mg IVP Q4H PRN PRN Reason: Pain, severe (8-10) Last Admin: 01/20/17 12:38 Dose: 0.5 mg Vancomycin/Sodium Chloride (Vancomycin 1 Gm/Ns 200 Ml) 1 gm in 200 mls @ 133.333 mls/hr IVPB Q24H [facility] Last Admin: 01/21/17 19:48 Dose: 133.333 mls/hr Imipenem/Cilastatin Sodium 500 (mg/ Sodium Chloride) 100 mls @ 100 mls/hr IVPB Q8H [facility] Last Admin: 01/22/17 13:44 Dose: 100 mls/hr Insulin Aspart (Novolog) 0 unit SC ACHS [facility] PRN Reason: Protocol Last Admin: 01/22/17 12:30 Dose: Not Given Insulin Glargine (Lantus) 35 unit SC Q12 [facility] Last Admin: 01/22/17 10:00 Dose: Not Given Ipratropium [place] (Atrovent Hfa) 2 puff IH RQ6 PRN PRN Reason: Shortness of Breath Lidocaine (Lidoderm) 1 ea TD Q24H [facility] Last Admin: 01/21/17 17:17 Dose: 1 ea Lisinopril (Zestril) 5 mg PO DAILY [facility] Last Admin: 01/22/17 09:55 Dose: 5 mg Multivitamins/Minerals (Therapeutic-M Tab) 1 tab PO DAILY [facility] Last Admin: 01/22/17 09:55 Dose: 1 tab Ondansetron HCl (Zofran Inj) 4 mg IVP Q6H PRN PRN Reason: Nausea/Vomiting Last Admin: 01/19/17 17:59 Dose: 4 mg Oxycodone/Acetaminophen (Percocet 5/325 Mg Tab) 2 tab PO Q4H PRN PRN Reason: Pain, moderate (4-7) Stop: 01/22/17 17:41 Last Admin: 01/22/17 13:45 Dose: 2 tab Rosuvastatin Calcium (Crestor) 5 mg PO HS [facility] Last Admin: 01/21/17 21:23 Dose: 5 mg Sennosides (Senokot Tab) 8.6 mg PO DAILY [facility] Last Admin: 01/22/17 09:55 Dose: 8.6 mg Thiamine HCl (Vitamin B1 Tab) 100 mg PO DAILY [facility] Last Admin: 01/22/17 09:55 Dose: 100 mg Zolpidem Tartrate (Ambien) 5 mg PO HS PRN PRN Reason: Insomnia Last Admin: 01/20/17 23:04 Dose: 5 mg - Labs Labs: 01/22/17 08:07 01/22/17 08:07 PT 11.9 SECONDS (9.7-12.2) 01/20/17 07:49 INR 1.0 01/20/17 07:49 APTT 32 SECONDS (21-34) 01/20/17 07:49 - Constitutional Appears: Non-toxic, No Acute Distress - Head Exam Head Exam: NORMAL INSPECTION - Eye Exam Eye Exam: Normal appearance - ENT Exam ENT Exam: Mucous Membranes Moist - Respiratory Exam Respiratory Exam: NORMAL BREATHING PATTERN. absent: Accessory Muscle Use, Respiratory Distress - Cardiovascular Exam Cardiovascular Exam: absent: Bradycardia, Tachycardia - GI/Abdominal Exam GI & Abdominal Exam: Soft. absent: Distended, Tenderness, Rebound - Extremities Exam Additional comments: L AKA R foot dressing c/d/i - Neurological Exam Neurological Exam: Alert, Awake, Oriented x3 - Psychiatric Exam Psychiatric exam: Normal Affect, Normal Mood - Skin Skin Exam: Dry, Warm Assessment and Plan - Assessment and Plan (Free Text) Assessment: 51 y/o M POD#3 s/p angio w/ ballon dilation - pt scheduled for OR tomorrow w/ Podiatry for 5th toe amputation - cont pain management - cont Abx - NPO@MN - cont medical management Pt discussed w/ Dr. Pradeep Blum DO PGY2
--- NOTE | 2017-01-22 14:55 | CP.PCM.PCO ---
Physician Communication Note - Physician Communication Note Physician Communication Note: patient medically cleared for OR tomorrow as per Dr. Lee
--- NOTE | 2017-01-22 15:01 | CP.PCM.PN ---
Subjective - Date & Time of Evaluation Date of Evaluation: 01/22/17 Time of Evaluation: 10:20 - Subjective Subjective: Patient seen today , denies any complaints for bone scan today Objective - Vital Signs/Intake and Output Vital Signs (last 24 hours): Temp Pulse Resp BP Pulse Ox 98.1 F 83 20 110/72 98 01/22/17 09:01 01/22/17 09:01 01/22/17 09:01 01/22/17 09:55 01/22/17 09:01 Intake and Output: 01/22/17 01/22/17 06:59 18:59 Intake Total 850 250 Balance 850 250 - Medications Medications: Current Medications Carvedilol (Coreg) 25 mg PO BID [facility] Last Admin: 01/22/17 09:55 Dose: 25 mg Clopidogrel Bisulfate (Plavix) 75 mg PO DAILY [facility] Last Admin: 01/22/17 09:55 Dose: 75 mg Enoxaparin Sodium (Lovenox) 40 mg SC DAILY [facility] Last Admin: 01/22/17 09:55 Dose: Not Given Gabapentin (Neurontin) 300 mg PO TID [facility] Last Admin: 01/22/17 13:46 Dose: 300 mg Hydromorphone HCl (Dilaudid) 0.5 mg IVP Q4H PRN PRN Reason: Pain, severe (8-10) Last Admin: 01/20/17 12:38 Dose: 0.5 mg Vancomycin/Sodium Chloride (Vancomycin 1 Gm/Ns 200 Ml) 1 gm in 200 mls @ 133.333 mls/hr IVPB Q24H [facility] Last Admin: 01/21/17 19:48 Dose: 133.333 mls/hr Imipenem/Cilastatin Sodium 500 (mg/ Sodium Chloride) 100 mls @ 100 mls/hr IVPB Q8H [facility] Last Admin: 01/22/17 13:44 Dose: 100 mls/hr Insulin Aspart (Novolog) 0 unit SC ACHS [facility] PRN Reason: Protocol Last Admin: 01/22/17 12:30 Dose: Not Given Insulin Glargine (Lantus) 35 unit SC Q12 [facility] Last Admin: 01/22/17 10:00 Dose: Not Given Ipratropium [place] (Atrovent Hfa) 2 puff IH RQ6 PRN PRN Reason: Shortness of Breath Lidocaine (Lidoderm) 1 ea TD Q24H [facility] Last Admin: 01/21/17 17:17 Dose: 1 ea Lisinopril (Zestril) 5 mg PO DAILY [facility] Last Admin: 01/22/17 09:55 Dose: 5 mg Multivitamins/Minerals (Therapeutic-M Tab) 1 tab PO DAILY [facility] Last Admin: 01/22/17 09:55 Dose: 1 tab Ondansetron HCl (Zofran Inj) 4 mg IVP Q6H PRN PRN Reason: Nausea/Vomiting Last Admin: 01/19/17 17:59 Dose: 4 mg Oxycodone/Acetaminophen (Percocet 5/325 Mg Tab) 2 tab PO Q4H PRN PRN Reason: Pain, moderate (4-7) Stop: 01/22/17 17:41 Last Admin: 01/22/17 13:45 Dose: 2 tab Rosuvastatin Calcium (Crestor) 5 mg PO HS [facility] Last Admin: 01/21/17 21:23 Dose: 5 mg Sennosides (Senokot Tab) 8.6 mg PO DAILY [facility] Last Admin: 01/22/17 09:55 Dose: 8.6 mg Thiamine HCl (Vitamin B1 Tab) 100 mg PO DAILY [facility] Last Admin: 01/22/17 09:55 Dose: 100 mg Zolpidem Tartrate (Ambien) 5 mg PO HS PRN PRN Reason: Insomnia Last Admin: 01/20/17 23:04 Dose: 5 mg - Labs Labs: 01/22/17 08:07 01/22/17 08:07 PT 11.9 SECONDS (9.7-12.2) 01/20/17 07:49 INR 1.0 01/20/17 07:49 APTT 32 SECONDS (21-34) 01/20/17 07:49 Assessment and Plan - Assessment and Plan (Free Text) Assessment: 51 y/o Male admitted with 5th toe gangrene POD#3 s/p angio w/ ballon dilation pt scheduled for OR tomorrow for 5th toe amputation D/W Dr. Lee, pt medically cleared fro OR tomorrow D/W Dr. Oviedo for cardiac clearance , pt is cleared for OR from cardiology standpoint
[2017-01-22] MEDS ORDERED: Dextrose 5%/0.45% NS 1,000 ML IV SCH (16:45)
[2017-01-22] MEDS: Vancomycin 1 gm/NS 200 ml 1 GM/200 ML BAG IVPB SCH (16:46)
--- NOTE | 2017-01-22 16:48 | NM ---
PROCEDURE: Three-phase bone scan HISTORY: Osteomyelitis suspected right foot COMPARISON: 01/15/2017 right foot radiographs TECHNIQUE: Following administration of 21.8 miCu of Tc MDP multiplanar whole body images were obtained. FINDINGS: Flow component: No suspicious flow abnormalities identified right lower extremity Blood pool component: Unremarkable blood pool component. Delayed images at 3:00: No suspicious findings on the delayed images. Other findings: Status post left TKA IMPRESSION: Negative examination.
[2017-01-22] MEDS: Lidocaine 5% Patch TD SCH (17:17)
--- NOTE | 2017-01-22 20:23 | PN ---
SUBJECTIVE: The patient denies chest pain. PHYSICAL EXAMINATION: VITAL SIGNS: Blood pressure 118/78, heart rate 84, temperature 98.2, respirations 20. HEENT: Normocephalic. CHEST: Clear. HEART: S1, S2, regular. EXTREMITES: Left oewxv-whv-thct amputation and dressing is applied to the right foot. LABORATORY DATA: Today's SMA-7 is within normal limits except for a glucose of 174, BUN and creatinine over 6 and 0.5 respectively. Hemoglobin, hematocrit, white count, and platelet count today are within normal limit. ASSESSMENT: 1. Status post right superficial femoral vein stenting. 2. History of left [id number] amputation a year ago. 3. Gangrenous changes of the right fifth toe. RECOMMENDATIONS: Continue current Coreg 25 mg twice a day, Crestor 5 mg once a day, continue IV imipenem, and subcutaneous Lovenox . The patient can undergo left fifth toe amputation from the cardiac point of view. Christiano Oviedo MD
--- NOTE | 2017-01-22 22:53 | CP.PCM.PN ---
Subjective - Date & Time of Evaluation Date of Evaluation: 01/22/17 Time of Evaluation: 22:53 - Subjective Subjective: afebrile Right foot fifth digit gangrene. c/o moderate to severe pain right leg. Case discussed with podiatry DR BEASLEY. PATIENT GOING FOR SURGERY IN A.M. FOR RIGHT FIFTH DIGIT AMPUTATION. patient on IV antibiotics. Case also discussed with ENROLLMENT REPRESENTATIVE MS LEW. PATIENT FOR BONE SCAN Objective - Vital Signs/Intake and Output Vital Signs (last 24 hours): Temp Pulse Resp BP Pulse Ox 98.2 F 84 20 131/90 99 01/22/17 15:19 01/22/17 15:19 01/22/17 15:19 01/22/17 17:16 01/22/17 15:19 Intake and Output: 01/22/17 01/23/17 18:59 06:59 Intake Total 630 Balance 630 - Medications Medications: Current Medications Carvedilol (Coreg) 25 mg PO BID [facility] Last Admin: 01/22/17 17:16 Dose: 25 mg Clopidogrel Bisulfate (Plavix) 75 mg PO DAILY [facility] Last Admin: 01/22/17 09:55 Dose: 75 mg Enoxaparin Sodium (Lovenox) 40 mg SC DAILY [facility] Last Admin: 01/22/17 09:55 Dose: Not Given Gabapentin (Neurontin) 300 mg PO TID [facility] Last Admin: 01/22/17 17:16 Dose: 300 mg Hydromorphone HCl (Dilaudid) 0.5 mg IVP Q4H PRN PRN Reason: Pain, severe (8-10) Last Admin: 01/20/17 12:38 Dose: 0.5 mg Vancomycin/Sodium Chloride (Vancomycin 1 Gm/Ns 200 Ml) 1 gm in 200 mls @ 133.333 mls/hr IVPB Q24H [facility] Last Admin: 01/22/17 16:46 Dose: 133.333 mls/hr Imipenem/Cilastatin Sodium 500 (mg/ Sodium Chloride) 100 mls @ 100 mls/hr IVPB Q8H [facility] Last Admin: 01/22/17 21:12 Dose: 100 mls/hr Dextrose/Sodium Chloride (Dextrose 5%/0.45% Ns 1000 Ml) 1,000 mls @ 50 mls/hr IV .Q20H [facility] Stop: 01/23/17 12:44 Last Admin: 01/22/17 17:21 Dose: 50 mls/hr Insulin Aspart (Novolog) 0 unit SC ACHS [facility] PRN Reason: Protocol Last Admin: 01/22/17 21:10 Dose: Not Given Insulin Glargine (Lantus) 35 unit SC Q12 [facility] Last Admin: 01/22/17 10:00 Dose: Not Given Ipratropium [place] (Atrovent Hfa) 2 puff IH RQ6 PRN PRN Reason: Shortness of Breath Lidocaine (Lidoderm) 1 ea TD Q24H [facility] Last Admin: 01/22/17 17:17 Dose: 1 ea Lisinopril (Zestril) 5 mg PO DAILY [facility] Last Admin: 01/22/17 09:55 Dose: 5 mg Multivitamins/Minerals (Therapeutic-M Tab) 1 tab PO DAILY [facility] Last Admin: 01/22/17 09:55 Dose: 1 tab Ondansetron HCl (Zofran Inj) 4 mg IVP Q6H PRN PRN Reason: Nausea/Vomiting Last Admin: 01/19/17 17:59 Dose: 4 mg Oxycodone/Acetaminophen (Percocet 5/325 Mg Tab) 2 tab PO Q4H PRN PRN Reason: Pain, moderate (4-7) Stop: 01/25/17 18:34 Last Admin: 01/22/17 22:38 Dose: 2 tab Rosuvastatin Calcium (Crestor) 5 mg PO HS [facility] Last Admin: 01/22/17 21:13 Dose: 5 mg Sennosides (Senokot Tab) 8.6 mg PO DAILY [facility] Last Admin: 01/22/17 09:55 Dose: 8.6 mg Thiamine HCl (Vitamin B1 Tab) 100 mg PO DAILY [facility] Last Admin: 01/22/17 09:55 Dose: 100 mg Zolpidem Tartrate (Ambien) 5 mg PO HS PRN PRN Reason: Insomnia Last Admin: 01/20/17 23:04 Dose: 5 mg - Labs Labs: 01/22/17 08:07 01/22/17 08:07 PT 11.9 SECONDS (9.7-12.2) 01/20/17 07:49 INR 1.0 01/20/17 07:49 APTT 32 SECONDS (21-34) 01/20/17 07:49 - Constitutional Appears: No Acute Distress - Head Exam Head Exam: NORMAL INSPECTION - Eye Exam Eye Exam: EOMI, PERRL - ENT Exam ENT Exam: Normal Oropharynx - Neck Exam Neck Exam: Normal Inspection - Respiratory Exam Respiratory Exam: NORMAL BREATHING PATTERN - Cardiovascular Exam Cardiovascular Exam: REGULAR RHYTHM, +S1, +S2 - GI/Abdominal Exam GI & Abdominal Exam: Soft, Normal Bowel Sounds - Extremities Exam Extremities Exam: Tenderness. absent: Calf Tenderness (RIGHT FOOT FIFTH DIGIT GANGRENE. lEFT ABOVE-KNEE AMPUTATION.) - Neurological Exam Neurological Exam: Awake, CN II-XII Intact, Oriented x3 - Skin Skin Exam: Normal Color, Warm Assessment and Plan (1) Gangrene of toe of right foot Assessment & Plan: PATIENT FOR SURGERY IN A.M. DISCUSSED WITH PODIATRY DR. BEASLEY. Wound cultures noted. +ve mrsa/Klebsiella ozaenae Intermediate to pip/tazo. Sensitive to- imipenem /meropenem/Cipro CONTINUE IV Primaxin 500 mg every 8 hourly for better Klebsiella coverage. 01/22 Agree with IV vancomycin 1 g every 24 hourly for MRSA coverage.01/21/17. Vanco trough level prior to the fourth dose. WE WILL REVIEW BONE SCAN. Status: Acute (2) Peripheral vascular disease Assessment & Plan: PATIENT STATUS POST SELECTIVE RIGHT LEG ANGIOGRAM WITH ATHERECTOMY RT. SFA AND STENT PLACEMENT 01/20/17 Status: Chronic (3) HTN (hypertension) Status: Acute (4) Diabetes mellitus Status: Chronic (5) Above knee amputation of left lower extremity Assessment & Plan: S/P AKA LLE. Status: Acute
--- NOTE | 2017-01-22 23:36 | CP.PCM.PN ---
Subjective - Date & Time of Evaluation Date of Evaluation: 01/22/17 Time of Evaluation: 20:00 - Subjective Subjective: Pt continues to c/o right thigh pain, he is for OR tomorrow morning Objective - Vital Signs/Intake and Output Vital Signs (last 24 hours): Temp Pulse Resp BP Pulse Ox 98.2 F 84 20 131/90 99 01/22/17 15:19 01/22/17 15:19 01/22/17 15:19 01/22/17 17:16 01/22/17 15:19 Intake and Output: 01/22/17 01/23/17 18:59 06:59 Intake Total 630 Balance 630 - Medications Medications: Current Medications Carvedilol (Coreg) 25 mg PO BID [facility] Last Admin: 01/22/17 17:16 Dose: 25 mg Clopidogrel Bisulfate (Plavix) 75 mg PO DAILY [facility] Last Admin: 01/22/17 09:55 Dose: 75 mg Enoxaparin Sodium (Lovenox) 40 mg SC DAILY [facility] Last Admin: 01/22/17 09:55 Dose: Not Given Gabapentin (Neurontin) 300 mg PO TID [facility] Last Admin: 01/22/17 17:16 Dose: 300 mg Hydromorphone HCl (Dilaudid) 0.5 mg IVP Q4H PRN PRN Reason: Pain, severe (8-10) Last Admin: 01/20/17 12:38 Dose: 0.5 mg Vancomycin/Sodium Chloride (Vancomycin 1 Gm/Ns 200 Ml) 1 gm in 200 mls @ 133.333 mls/hr IVPB Q24H [facility] Last Admin: 01/22/17 16:46 Dose: 133.333 mls/hr Imipenem/Cilastatin Sodium 500 (mg/ Sodium Chloride) 100 mls @ 100 mls/hr IVPB Q8H [facility] Last Admin: 01/22/17 21:12 Dose: 100 mls/hr Dextrose/Sodium Chloride (Dextrose 5%/0.45% Ns 1000 Ml) 1,000 mls @ 50 mls/hr IV .Q20H [facility] Stop: 01/23/17 12:44 Last Admin: 01/22/17 17:21 Dose: 50 mls/hr Insulin Aspart (Novolog) 0 unit SC ACHS [facility] PRN Reason: Protocol Last Admin: 01/22/17 21:10 Dose: Not Given Insulin Glargine (Lantus) 35 unit SC Q12 [facility] Last Admin: 01/22/17 10:00 Dose: Not Given Ipratropium [place] (Atrovent Hfa) 2 puff IH RQ6 PRN PRN Reason: Shortness of Breath Lidocaine (Lidoderm) 1 ea TD Q24H [facility] Last Admin: 01/22/17 17:17 Dose: 1 ea Lisinopril (Zestril) 5 mg PO DAILY [facility] Last Admin: 01/22/17 09:55 Dose: 5 mg Multivitamins/Minerals (Therapeutic-M Tab) 1 tab PO DAILY [facility] Last Admin: 01/22/17 09:55 Dose: 1 tab Ondansetron HCl (Zofran Inj) 4 mg IVP Q6H PRN PRN Reason: Nausea/Vomiting Last Admin: 01/19/17 17:59 Dose: 4 mg Oxycodone/Acetaminophen (Percocet 5/325 Mg Tab) 2 tab PO Q4H PRN PRN Reason: Pain, moderate (4-7) Stop: 01/25/17 18:34 Last Admin: 01/22/17 22:38 Dose: 2 tab Rosuvastatin Calcium (Crestor) 5 mg PO HS [facility] Last Admin: 01/22/17 21:13 Dose: 5 mg Sennosides (Senokot Tab) 8.6 mg PO DAILY [facility] Last Admin: 01/22/17 09:55 Dose: 8.6 mg Thiamine HCl (Vitamin B1 Tab) 100 mg PO DAILY [facility] Last Admin: 01/22/17 09:55 Dose: 100 mg Zolpidem Tartrate (Ambien) 5 mg PO HS PRN PRN Reason: Insomnia Last Admin: 01/20/17 23:04 Dose: 5 mg - Labs Labs: 01/22/17 08:07 01/22/17 08:07 PT 11.9 SECONDS (9.7-12.2) 01/20/17 07:49 INR 1.0 01/20/17 07:49 APTT 32 SECONDS (21-34) 01/20/17 07:49 - Constitutional Appears: No Acute Distress - Head Exam Head Exam: ATRAUMATIC, NORMAL INSPECTION, NORMOCEPHALIC - Eye Exam Eye Exam: EOMI, Normal appearance, PERRL Pupil Exam: NORMAL ACCOMODATION, PERRL - Respiratory Exam Respiratory Exam: Clear to Ausculation Bilateral, NORMAL BREATHING PATTERN - Cardiovascular Exam Cardiovascular Exam: REGULAR RHYTHM, +S1, +S2. absent: Murmur - GI/Abdominal Exam GI & Abdominal Exam: Soft, Normal Bowel Sounds. absent: Tenderness Assessment and Plan (1) Gangrene of toe of right foot Status: Acute (2) Diabetes mellitus Assessment & Plan: tight sugar control Accu check Status: Chronic (3) PAD (peripheral artery disease) Assessment & Plan: s/p Bypass continue monitoring for Or tommrow Status: Chronic
[2017-01-23] MEDS: Oxycodone/Acetaminophen 5/325 mg Tab PO PRN ×5 (03:04→23:15)
--- NOTE | 2017-01-23 07:13 | CP.PCM.PN ---
Subjective - Date & Time of Evaluation Date of Evaluation: 01/23/17 Time of Evaluation: 07:10 - Subjective Subjective: Podiatry Progress Note for Dr. Malik 51 year old male was seen at bedside today regarding right foot 5th digit gangrene. He is aware that he is going for surgery this morning for right 5th digit amputation. NPO status confirmed. Patient is NAD and AAOx3. He denies any n/v/f/c/sob/cp. Objective - Vital Signs/Intake and Output Vital Signs (last 24 hours): Temp Pulse Resp BP Pulse Ox 97.8 F 92 H 20 100/66 97 01/22/17 23:05 01/22/17 23:05 01/22/17 23:05 01/22/17 23:05 01/22/17 23:05 Intake and Output: 01/23/17 01/23/17 06:59 18:59 Intake Total 1150 Balance 1150 - Medications Medications: Current Medications Carvedilol (Coreg) 25 mg PO BID [facility] Last Admin: 01/22/17 17:16 Dose: 25 mg Clopidogrel Bisulfate (Plavix) 75 mg PO DAILY [facility] Last Admin: 01/22/17 09:55 Dose: 75 mg Enoxaparin Sodium (Lovenox) 40 mg SC DAILY [facility] Last Admin: 01/22/17 09:55 Dose: Not Given Gabapentin (Neurontin) 300 mg PO TID [facility] Last Admin: 01/22/17 17:16 Dose: 300 mg Hydromorphone HCl (Dilaudid) 0.5 mg IVP Q4H PRN PRN Reason: Pain, severe (8-10) Last Admin: 01/20/17 12:38 Dose: 0.5 mg Vancomycin/Sodium Chloride (Vancomycin 1 Gm/Ns 200 Ml) 1 gm in 200 mls @ 133.333 mls/hr IVPB Q24H [facility] Last Admin: 01/22/17 16:46 Dose: 133.333 mls/hr Imipenem/Cilastatin Sodium 500 (mg/ Sodium Chloride) 100 mls @ 100 mls/hr IVPB Q8H [facility] Last Admin: 01/23/17 05:22 Dose: 100 mls/hr Dextrose/Sodium Chloride (Dextrose 5%/0.45% Ns 1000 Ml) 1,000 mls @ 50 mls/hr IV .Q20H [facility] Stop: 01/23/17 12:44 Last Admin: 01/22/17 17:21 Dose: 50 mls/hr Insulin Aspart (Novolog) 0 unit SC ACHS [facility] PRN Reason: Protocol Last Admin: 01/22/17 21:10 Dose: Not Given Insulin Glargine (Lantus) 35 unit SC Q12 [facility] Last Admin: 01/22/17 10:00 Dose: Not Given Ipratropium [place] (Atrovent Hfa) 2 puff IH RQ6 PRN PRN Reason: Shortness of Breath Lidocaine (Lidoderm) 1 ea TD Q24H [facility] Last Admin: 01/22/17 17:17 Dose: 1 ea Lisinopril (Zestril) 5 mg PO DAILY [facility] Last Admin: 01/22/17 09:55 Dose: 5 mg Multivitamins/Minerals (Therapeutic-M Tab) 1 tab PO DAILY [facility] Last Admin: 01/22/17 09:55 Dose: 1 tab Ondansetron HCl (Zofran Inj) 4 mg IVP Q6H PRN PRN Reason: Nausea/Vomiting Last Admin: 01/19/17 17:59 Dose: 4 mg Oxycodone/Acetaminophen (Percocet 5/325 Mg Tab) 2 tab PO Q4H PRN PRN Reason: Pain, moderate (4-7) Stop: 01/25/17 18:34 Last Admin: 01/23/17 03:04 Dose: 2 tab Rosuvastatin Calcium (Crestor) 5 mg PO HS [facility] Last Admin: 01/22/17 21:13 Dose: 5 mg Sennosides (Senokot Tab) 8.6 mg PO DAILY [facility] Last Admin: 01/22/17 09:55 Dose: 8.6 mg Thiamine HCl (Vitamin B1 Tab) 100 mg PO DAILY [facility] Last Admin: 01/22/17 09:55 Dose: 100 mg Zolpidem Tartrate (Ambien) 5 mg PO HS PRN PRN Reason: Insomnia Last Admin: 01/20/17 23:04 Dose: 5 mg - Labs Labs: 01/22/17 08:07 01/22/17 08:07 PT 11.9 SECONDS (9.7-12.2) 01/20/17 07:49 INR 1.0 01/20/17 07:49 APTT 32 SECONDS (21-34) 01/20/17 07:49 - Constitutional Appears: Well, Non-toxic, No Acute Distress - Extremities Exam Additional comments: dressing c/d/i to RLE - Neurological Exam Neurological Exam: Alert, Awake, Oriented x3 - Psychiatric Exam Psychiatric exam: Normal Affect, Normal Mood Assessment and Plan - Assessment and Plan (Free Text) Assessment: 51 year old male with right 5th digit dry gangrene Plan: Pt was seen and examined at bedside Discussed with attending, Dr. Malik Pt NPO status was confirmed Medical and cardiac optimization was in the chart Pt has exhausted all conservative treatment at this time and is opting for surgical intervention Pt was explained procedure and post-operative course All pt's questions were answered to satisfaction No guarantees were made Pt understands all risks, benefits and complications of procedure Podiatry will cont to follow pt in house
[2017-01-23] MEDS ORDERED: Bupivacaine HCl 0.5% PF (10 ml) Inj ONE ×2 (07:54)
[2017-01-23] MEDS ORDERED: Lidocaine 1% Inj (20ml) ONE (07:55)
[2017-01-23] MEDS ORDERED: Propofol 10 mg/ml Inj (20 ML) ONE (08:04)
[2017-01-23] MEDS ORDERED: Midazolam 2 MG/2 ML VIAL ONE (08:04)
[2017-01-23] MEDS: (Novolog) Insulin Aspart, Recombinant 100 u/ml 10 ml vial SC SCH ×4 (08:10→21:31)
[2017-01-23] MEDS ORDERED: Lactated Ringer's 1,000 ML IV ONE (08:15)
[2017-01-23] MEDS ORDERED: Phenylephrine 10 mg/ml Inj ONE (08:32)
--- NOTE | 2017-01-23 09:06 | PCM.SURG1 ---
Surgeon's Initial Post Op Note - Surgeon's Notes Surgeon: Dr. Bandar Malik DPM [employer] Clerk: Dr. Vinicio Oscar DPM PGY-1 Type of Anesthesia: IV Sedation, Local Anesthesia Administered By: Dr. Squires Pre-Operative Diagnosis: right 5th digit gangrene Operative Findings: see dictations. materials: 3-0 nylon; injectables: total of 14cc of 1:1 of 1% lidocaine plain and .5% marcaine plain Post-Operative Diagnosis: same Operation Performed: right 5th digit amputation Specimen/Specimens Removed: right 5th digit gangrene Estimated Blood Loss: EBL {In ML}: 2 Blood Products Given: N/A Drains Used: No Drains Post-Op Condition: Good Date of Surgery/Procedure: 01/23/17 Time of Surgery/Procedure: 08:00
--- NOTE | 2017-01-23 09:08 | CP.PCM.PN ---
Subjective - Date & Time of Evaluation Date of Evaluation: 01/23/17 Time of Evaluation: 06:45 - Subjective Subjective: Vascular surgery Dr. Fernández Pt S&E @bedside. NAEO. Pt has no complaints. Pt scheduled for OR today w/ podiatry for amputation of 5th toe. Objective - Vital Signs/Intake and Output Vital Signs (last 24 hours): Temp Pulse Resp BP Pulse Ox 97.9 F 85 20 124/80 98 01/23/17 08:06 01/23/17 08:06 01/23/17 08:06 01/23/17 08:06 01/23/17 08:06 Intake and Output: 01/23/17 01/23/17 06:59 18:59 Intake Total 1150 Balance 1150 - Medications Medications: Current Medications Carvedilol (Coreg) 25 mg PO BID [facility] Last Admin: 01/22/17 17:16 Dose: 25 mg Clopidogrel Bisulfate (Plavix) 75 mg PO DAILY [facility] Last Admin: 01/22/17 09:55 Dose: 75 mg Enoxaparin Sodium (Lovenox) 40 mg SC DAILY [facility] Last Admin: 01/22/17 09:55 Dose: Not Given Gabapentin (Neurontin) 300 mg PO TID [facility] Last Admin: 01/22/17 17:16 Dose: 300 mg Hydromorphone HCl (Dilaudid) 0.5 mg IVP Q4H PRN PRN Reason: Pain, severe (8-10) Last Admin: 01/20/17 12:38 Dose: 0.5 mg Vancomycin/Sodium Chloride (Vancomycin 1 Gm/Ns 200 Ml) 1 gm in 200 mls @ 133.333 mls/hr IVPB Q24H [facility] Last Admin: 01/22/17 16:46 Dose: 133.333 mls/hr Imipenem/Cilastatin Sodium 500 (mg/ Sodium Chloride) 100 mls @ 100 mls/hr IVPB Q8H [facility] Last Admin: 01/23/17 05:22 Dose: 100 mls/hr Dextrose/Sodium Chloride (Dextrose 5%/0.45% Ns 1000 Ml) 1,000 mls @ 50 mls/hr IV .Q20H [facility] Stop: 01/23/17 12:44 Last Admin: 01/22/17 17:21 Dose: 50 mls/hr Insulin Aspart (Novolog) 0 unit SC ACHS [facility] PRN Reason: Protocol Last Admin: 01/23/17 08:10 Dose: Not Given Insulin Glargine (Lantus) 35 unit SC Q12 [facility] Last Admin: 01/22/17 10:00 Dose: Not Given Ipratropium [place] (Atrovent Hfa) 2 puff IH RQ6 PRN PRN Reason: Shortness of Breath Lidocaine (Lidoderm) 1 ea TD Q24H [facility] Last Admin: 01/22/17 17:17 Dose: 1 ea Lisinopril (Zestril) 5 mg PO DAILY [facility] Last Admin: 01/22/17 09:55 Dose: 5 mg Multivitamins/Minerals (Therapeutic-M Tab) 1 tab PO DAILY [facility] Last Admin: 01/22/17 09:55 Dose: 1 tab Ondansetron HCl (Zofran Inj) 4 mg IVP Q6H PRN PRN Reason: Nausea/Vomiting Last Admin: 01/19/17 17:59 Dose: 4 mg Oxycodone/Acetaminophen (Percocet 5/325 Mg Tab) 2 tab PO Q4H PRN PRN Reason: Pain, moderate (4-7) Stop: 01/25/17 18:34 Last Admin: 01/23/17 03:04 Dose: 2 tab Rosuvastatin Calcium (Crestor) 5 mg PO HS [facility] Last Admin: 01/22/17 21:13 Dose: 5 mg Sennosides (Senokot Tab) 8.6 mg PO DAILY [facility] Last Admin: 01/22/17 09:55 Dose: 8.6 mg Thiamine HCl (Vitamin B1 Tab) 100 mg PO DAILY [facility] Last Admin: 01/22/17 09:55 Dose: 100 mg Zolpidem Tartrate (Ambien) 5 mg PO HS PRN PRN Reason: Insomnia Last Admin: 01/20/17 23:04 Dose: 5 mg - Labs Labs: 01/22/17 08:07 01/22/17 08:07 PT 11.9 SECONDS (9.7-12.2) 01/20/17 07:49 INR 1.0 01/20/17 07:49 APTT 32 SECONDS (21-34) 01/20/17 07:49 - Constitutional Appears: Non-toxic, No Acute Distress - Head Exam Head Exam: NORMAL INSPECTION - Eye Exam Eye Exam: Normal appearance - ENT Exam ENT Exam: Mucous Membranes Moist - Respiratory Exam Respiratory Exam: NORMAL BREATHING PATTERN. absent: Accessory Muscle Use, Respiratory Distress - Cardiovascular Exam Cardiovascular Exam: absent: Bradycardia, Tachycardia - GI/Abdominal Exam GI & Abdominal Exam: Soft. absent: Distended - Extremities Exam Additional comments: R foot dressing c/d/i L AKA - Neurological Exam Neurological Exam: Alert, Awake, Oriented x3 - Psychiatric Exam Psychiatric exam: Normal Affect, Normal Mood - Skin Skin Exam: Dry, Warm Assessment and Plan - Assessment and Plan (Free Text) Assessment: 51 y/o M POD#4 s/p RLE angio w/ balloon dilation - pt scheduled for OR today w/ Podiatry for 5th toe amputation - cont pain management - cont Abx - ADAT - cont medical management Pt discussed w/ Dr. Pradeep Blum DO PGY2
[2017-01-23] MEDS ORDERED: Oxycodone/Acetaminophen 5/325 mg Tab PO PRN ×2 (09:11)
--- NOTE | 2017-01-23 10:10 | RAD ---
PROCEDURE: Right Foot Radiographs. HISTORY: s/p right foot surgery COMPARISON: 01/15/2017 FINDINGS: BONES: Interval amputation digit- proximal phalanx -mid shaft level here. Overlying bandage likely impeding optimal frontal view evaluation here Bifid medial sesamoid. Juxta-articular osteopenia. First metatarsal head osseous hypertrophy. JOINTS: Mild 1st metatarsal-phalangeal joint arthrosis SOFT TISSUES: Altered over 5th digit OTHER FINDINGS: None. IMPRESSION: Status post recent right 5th proximal phalangeal amputation with normal expected postop changes here
[2017-01-23] MEDS: Multivitamin With Minerals Tab PO SCH (10:11)
--- NOTE | 2017-01-23 13:51 | CP.PCM.PN ---
Subjective - Date & Time of Evaluation Date of Evaluation: 01/23/17 Time of Evaluation: 13:51 - Subjective Subjective: patient seen postoperative. s/p right 5th digit amputation c/o postoperative pain. Objective - Vital Signs/Intake and Output Vital Signs (last 24 hours): Temp Pulse Resp BP Pulse Ox 98 F 87 17 124/80 97 01/23/17 09:45 01/23/17 09:45 01/23/17 09:45 01/23/17 10:11 01/23/17 09:45 Intake and Output: 01/23/17 01/23/17 06:59 18:59 Intake Total 1150 Output Total 200 Balance 1150 -200 - Medications Medications: Current Medications Acetaminophen (Tylenol 325mg Tab) 650 mg PO Q6 PRN PRN Reason: Pain, Mild (1-3) Carvedilol (Coreg) 25 mg PO BID [facility] Last Admin: 01/23/17 10:11 Dose: 25 mg Clopidogrel Bisulfate (Plavix) 75 mg PO DAILY [facility] Last Admin: 01/22/17 09:55 Dose: 75 mg Enoxaparin Sodium (Lovenox) 40 mg SC DAILY [facility] Last Admin: 01/22/17 09:55 Dose: Not Given Gabapentin (Neurontin) 300 mg PO TID [facility] Last Admin: 01/23/17 13:46 Dose: 300 mg Hydromorphone HCl (Dilaudid) 0.5 mg IVP Q4H PRN PRN Reason: Pain, severe (8-10) Last Admin: 01/20/17 12:38 Dose: 0.5 mg Vancomycin/Sodium Chloride (Vancomycin 1 Gm/Ns 200 Ml) 1 gm in 200 mls @ 133.333 mls/hr IVPB Q24H [facility] Last Admin: 01/22/17 16:46 Dose: 133.333 mls/hr Imipenem/Cilastatin Sodium 500 (mg/ Sodium Chloride) 100 mls @ 100 mls/hr IVPB Q8H [facility] Last Admin: 01/23/17 13:46 Dose: 100 mls/hr Insulin Aspart (Novolog) 0 unit SC ACHS [facility] PRN Reason: Protocol Last Admin: 01/23/17 12:32 Dose: 2 unit Insulin Glargine (Lantus) 35 unit SC Q12 [facility] Last Admin: 01/22/17 10:00 Dose: Not Given Ipratropium [place] (Atrovent Hfa) 2 puff IH RQ6 PRN PRN Reason: Shortness of Breath Lidocaine (Lidoderm) 1 ea TD Q24H [facility] Last Admin: 01/22/17 17:17 Dose: 1 ea Lisinopril (Zestril) 5 mg PO DAILY [facility] Last Admin: 01/23/17 10:11 Dose: 5 mg Multivitamins/Minerals (Therapeutic-M Tab) 1 tab PO DAILY [facility] Last Admin: 01/23/17 10:11 Dose: 1 tab Ondansetron HCl (Zofran Inj) 4 mg IVP Q6H PRN PRN Reason: Nausea/Vomiting Last Admin: 01/19/17 17:59 Dose: 4 mg Oxycodone/Acetaminophen (Percocet 5/325 Mg Tab) 2 tab PO Q4H PRN PRN Reason: Pain, moderate (4-7) Stop: 01/25/17 18:34 Last Admin: 01/23/17 10:11 Dose: 2 tab Rosuvastatin Calcium (Crestor) 5 mg PO HS [facility] Last Admin: 01/22/17 21:13 Dose: 5 mg Sennosides (Senokot Tab) 8.6 mg PO DAILY [facility] Last Admin: 01/23/17 10:10 Dose: 8.6 mg Thiamine HCl (Vitamin B1 Tab) 100 mg PO DAILY [facility] Last Admin: 01/23/17 10:11 Dose: 100 mg Zolpidem Tartrate (Ambien) 5 mg PO HS PRN PRN Reason: Insomnia Last Admin: 01/20/17 23:04 Dose: 5 mg - Labs Labs: 01/22/17 08:07 01/22/17 08:07 PT 11.9 SECONDS (9.7-12.2) 01/20/17 07:49 INR 1.0 01/20/17 07:49 APTT 32 SECONDS (21-34) 01/20/17 07:49 - Constitutional Appears: No Acute Distress - Head Exam Head Exam: NORMAL INSPECTION - Eye Exam Eye Exam: EOMI, PERRL - ENT Exam ENT Exam: Normal Oropharynx - Neck Exam Neck Exam: Normal Inspection - Respiratory Exam Respiratory Exam: Clear to Ausculation Bilateral - Cardiovascular Exam Cardiovascular Exam: REGULAR RHYTHM, +S1, +S2 - GI/Abdominal Exam GI & Abdominal Exam: Soft, Normal Bowel Sounds - Extremities Exam Extremities Exam: absent: Calf Tenderness (rt. foot postoperative dressing in place. Left above-knee amputation.) - Neurological Exam Neurological Exam: Awake - Skin Skin Exam: Normal Color, Warm Assessment and Plan (1) Gangrene of toe of right foot Assessment & Plan: S/P AMPUTATION RIGHT FOOT 5TH DIGIT 01/23/17 RIGHT FOOT POSTOPERATIVE DRESSING DRY. PATIENT ON iv ANTIBIOTICS. CONTINUE iv IMIPENEM 500 EVERY 8 HOURLY X 10 DAYS. CONTINUE iv VANCOMYCIN 1 G ONCE A DAY FOR 10 DAYS. FOLLOW-UP vANCO TROUGH LEVEL PRIOR TO THE FOURTH DOSE AND KEEP IT BETWEEN 10 AND 20. MONITOR RENAL FUNCTIONS CLOSELY. PATIENT WILL NEED A PICC LINE DISCUSSED WITH ADMINISTRATION SPECIALIST MS LEW PATIENT HAS POOR iv ACCESS. Status: Acute (2) Peripheral vascular disease Assessment & Plan: STATUS POST LEFT ABOVE-KNEE AMPUTATION Status: Chronic (3) HTN (hypertension) Status: Acute (4) Diabetes mellitus Status: Chronic (5) Above knee amputation of left lower extremity Status: Acute
[2017-01-23] MEDS: Vancomycin 1 gm/NS 200 ml 1 GM/200 ML BAG IVPB SCH (17:28)
[2017-01-23] MEDS: Lidocaine 5% Patch TD SCH (17:28)
--- NOTE | 2017-01-23 18:31 | PN ---
DATE: SUBJECTIVE: The patient underwent amputation of gangrenous right fifth toe. He denies any chest pain. PHYSICAL EXAMINATION: VITAL SIGNS: Blood pressure 124/80, heart rate 87, temperature 98, and respirations 17. HEENT: Normocephalic. CHEST: Clear. HEART: S1 and S2, regular. LABORATORY DATA: Today's blood sugars are 115 and 236. ASSESSMENT: 1. Peripheral vascular disease, status post amputation of the right fifth toe for gangrenous toe. 2. Status post right superficial femoral artery stenting. 3. Status post left total knee amputation. RECOMMENDATIONS: Continue current Coreg 25 mg twice a day, Crestor 5 mg once a day, IV imipenem 500 mg q. 8 hours, Plavix 75 mg once a day, vancomycin 1 g intravenously daily, and Zestril 5 mg once a day. Obtain 12-lead EKG now. Christiano Oviedo MD
[2017-01-24] MEDS: Oxycodone/Acetaminophen 5/325 mg Tab PO PRN ×3 (04:59→16:28)
[2017-01-24] MEDS: (Novolog) Insulin Aspart, Recombinant 100 u/ml 10 ml vial SC SCH ×3 (07:48→16:30)
--- NOTE | 2017-01-24 08:26 | CP.PCM.PN ---
Subjective - Date & Time of Evaluation Date of Evaluation: 01/24/17 Time of Evaluation: 06:45 - Subjective Subjective: Surgery Progress note. Dr. Fernández Pt seen and examined at bedside. No acute events overnight. States that his Right foot dressing came off last night and he replaced it. Denies F/C. No new complaints Objective - Vital Signs/Intake and Output Vital Signs (last 24 hours): Temp Pulse Resp BP Pulse Ox 98.2 F 82 18 105/73 98 01/23/17 23:35 01/23/17 23:35 01/23/17 23:35 01/23/17 23:35 01/23/17 23:35 Intake and Output: 01/24/17 01/24/17 06:59 18:59 Intake Total 1900 Balance 1900 - Medications Medications: Current Medications Acetaminophen (Tylenol 325mg Tab) 650 mg PO Q6 PRN PRN Reason: Pain, Mild (1-3) Carvedilol (Coreg) 25 mg PO BID [facility] Last Admin: 01/23/17 17:28 Dose: 25 mg Clopidogrel Bisulfate (Plavix) 75 mg PO DAILY [facility] Last Admin: 01/22/17 09:55 Dose: 75 mg Enoxaparin Sodium (Lovenox) 40 mg SC DAILY [facility] Last Admin: 01/22/17 09:55 Dose: Not Given Gabapentin (Neurontin) 300 mg PO TID [facility] Last Admin: 01/23/17 17:28 Dose: 300 mg Hydromorphone HCl (Dilaudid) 0.5 mg IVP Q4H PRN PRN Reason: Pain, severe (8-10) Last Admin: 01/20/17 12:38 Dose: 0.5 mg Vancomycin/Sodium Chloride (Vancomycin 1 Gm/Ns 200 Ml) 1 gm in 200 mls @ 133.333 mls/hr IVPB Q24H [facility] Last Admin: 01/23/17 17:28 Dose: 133.333 mls/hr Imipenem/Cilastatin Sodium 500 (mg/ Sodium Chloride) 100 mls @ 100 mls/hr IVPB Q8H [facility] Last Admin: 01/24/17 05:00 Dose: 100 mls/hr Insulin Aspart (Novolog) 0 unit SC ACHS [facility] PRN Reason: Protocol Last Admin: 01/24/17 07:48 Dose: Not Given Insulin Glargine (Lantus) 35 unit SC Q12 [facility] Last Admin: 01/22/17 10:00 Dose: Not Given Ipratropium [place] (Atrovent Hfa) 2 puff IH RQ6 PRN PRN Reason: Shortness of Breath Lidocaine (Lidoderm) 1 ea TD Q24H [facility] Last Admin: 01/23/17 17:28 Dose: 1 ea Lisinopril (Zestril) 5 mg PO DAILY [facility] Last Admin: 01/23/17 10:11 Dose: 5 mg Multivitamins/Minerals (Therapeutic-M Tab) 1 tab PO DAILY [facility] Last Admin: 01/23/17 10:11 Dose: 1 tab Ondansetron HCl (Zofran Inj) 4 mg IVP Q6H PRN PRN Reason: Nausea/Vomiting Last Admin: 01/19/17 17:59 Dose: 4 mg Oxycodone/Acetaminophen (Percocet 5/325 Mg Tab) 2 tab PO Q4H PRN PRN Reason: Pain, moderate (4-7) Stop: 01/25/17 18:34 Last Admin: 01/24/17 04:59 Dose: 2 tab Rosuvastatin Calcium (Crestor) 5 mg PO HS [facility] Last Admin: 01/23/17 21:05 Dose: 5 mg Sennosides (Senokot Tab) 8.6 mg PO DAILY [facility] Last Admin: 01/23/17 10:10 Dose: 8.6 mg Thiamine HCl (Vitamin B1 Tab) 100 mg PO DAILY [facility] Last Admin: 01/23/17 10:11 Dose: 100 mg Zolpidem Tartrate (Ambien) 5 mg PO HS PRN PRN Reason: Insomnia Last Admin: 01/20/17 23:04 Dose: 5 mg - Labs Labs: 01/22/17 08:07 01/22/17 08:07 PT 11.9 SECONDS (9.7-12.2) 01/20/17 07:49 INR 1.0 01/20/17 07:49 APTT 32 SECONDS (21-34) 01/20/17 07:49 - Constitutional Appears: Well, Non-toxic, No Acute Distress - Head Exam Head Exam: ATRAUMATIC, NORMAL INSPECTION, NORMOCEPHALIC - Eye Exam Eye Exam: EOMI - ENT Exam ENT Exam: Mucous Membranes Moist - Respiratory Exam Respiratory Exam: NORMAL BREATHING PATTERN. absent: Accessory Muscle Use, Respiratory Distress - Cardiovascular Exam Cardiovascular Exam: RRR. absent: JVD - GI/Abdominal Exam GI & Abdominal Exam: Soft. absent: Firm, Guarding, Rigid, Tenderness - Extremities Exam Extremities Exam: Normal Inspection. absent: Calf Tenderness Additional comments: Right foot dressing in place, clean, dry and intact Left AKA. - Neurological Exam Neurological Exam: Alert, Awake, Oriented x3 Assessment and Plan - Assessment and Plan (Free Text) Assessment: 51yo M POD5 s/p RLE angio w/ balloon dilation. S/P R 5th toe amputation by podiatry - cont pain management - cont Abx - Patient to follow up with Dr. Fernández in clinic. Call for appointment Further Recs as per Dr. Pradeep Sevilla PGY1 surgery pager: [phone]
[2017-01-24 08:29] VITALS: RESP 20
--- NOTE | 2017-01-24 08:35 | OP ---
PROCEDURE DATE: 01/23/2017 PREOPERATIVE DIAGNOSIS: Right fifth digit gangrene. POSTOPERATIVE DIAGNOSIS: Right fifth digit gangrene. PROCEDURE: Right partial fifth digit amputation. SURGEON: Bandar Malik DPM BURR PICKER: Vinicio Oscar DPM, PGY-1 TYPE OF ANESTHESIA: IV sedation and local. ANESTHESIA ADMINISTERED BY: Dr. Squires. INDICATIONS: The patient is a 51-year-old male with the above diagnosis. The patient presents with dry gangrene ulceration of the right fifth digit distally secondary to the peripheral vascular disease, measuring approximately 2.5 cm x 1 cm. The patient has exhausted all conservative treatment at this time and now requires surgical intervention. The patient signed the consent after careful explanation of the risks, benefits, complications, and alternatives for surgical procedure. No guarantees were given nor implied, n.p.o. status was confirmed prior to taking the patient to the OR. PREPARATION: The patient was brought into the operating room and placed on the operating room table in a supine position. A time-out was performed for identification of the correct patient and procedure. The patient received a total of 14 mL of 1:1 mixture of 1% lidocaine plain with 0.5% Marcaine plain in a local block fashion to the right fifth digit. The right foot was then prepped and draped in a normal sterile manner and the procedure began. No tourniquet was used during the procedure. DESCRIPTION OF PROCEDURE: Attention was then drawn to the dorsal aspect of the right fifth digit, where a circular incision was made around the entire digit using a #15-blade at the level of the IPJ and a pickup. Using the #15-blade, the incision was extended down to the subcutaneous layers down to the level of bone. Then, using a pickup and #15-blade, the fifth digit was then disarticulated from the foot at the level of the fifth right IPJ. The disarticulated distal phalanx was passed off the operative field and sent to pathology lab. Next, using #15-blade, a dorsal incision was made, measuring approximately 1 cm, extending approximately from distal to the fifth MPJ, and was extending down through the subcutaneous layers down to the level of bone. Next, using a bone cutter, approximately distal one-third of the proximal phalanx was resected and passed from the operating field. Using a fresh #15-blade, all necrotic and nonviable tissue was then excisionally debrided from the surgical site. The skin margins were debulked to create suitable flap for the closure. The wound was then copiously flushed with sterile saline using a bulb syringe. Next, skin layers were then reapproximated and coapted using a 3-0 nylon using a simple suture technique. The right foot was then dressed with Xeroform, Betadine wet-to-dry, 4 x 4 gauze, and a Geovani. POSTOPERATIVE CONDITION: The patient tolerated local anesthesia and procedure well, and was escorted to the recovery room with neurovascular status intact to the right foot. The patient will remain in-house and Podiatry will continue to follow. Upon discharge, the patient is to follow up in Wound Care with Dr. Malik within 1 week. Vinicio Oscar DPM Bandar Malik DPM LITA
[2017-01-24] MEDS: Multivitamin With Minerals Tab PO SCH (09:49)
[2017-01-24] MEDS ORDERED: Enoxaparin 40 mg Syringe SC SCH (10:00)
--- NOTE | 2017-01-24 11:11 | RAD ---
HISTORY: verify right PICC COMPARISON: 01/15/2017 FINDINGS: The right PICC line terminates in the SVC. LUNGS: The lungs are well inflated. There is subsegmental atelectasis in the left lower lobe. PLEURA: No significant pleural effusion identified, no pneumothorax apparent. CARDIOVASCULAR: Normal. OSSEOUS STRUCTURES: No significant abnormalities. VISUALIZED UPPER ABDOMEN: Normal. OTHER FINDINGS: None. IMPRESSION: The right PICC line terminates in the SVC. Discoid atelectasis in the left lower lobe.
--- NOTE | 2017-01-24 14:13 | CP.PCM.PN ---
Subjective - Date & Time of Evaluation Date of Evaluation: 01/24/17 Time of Evaluation: 14:10 - Subjective Subjective: Podiatry Progress Note for Dr. Malik 51 year old male was seen at bedside with attending, Dr. Malik 1 day s/p right 5th digit amputation (DOS 01/23/17). He states that his dressing fell off overnight and he replaced it himself. He denies any n/v/f/c/sob/cp. Objective - Vital Signs/Intake and Output Vital Signs (last 24 hours): Temp Pulse Resp BP Pulse Ox 97.7 F 102 H 20 124/82 99 01/24/17 08:28 01/24/17 09:50 01/24/17 08:28 01/24/17 09:50 01/24/17 08:28 Intake and Output: 01/24/17 01/24/17 06:59 18:59 Intake Total 1900 Balance 1900 - Medications Medications: Current Medications Acetaminophen (Tylenol 325mg Tab) 650 mg PO Q6 PRN PRN Reason: Pain, Mild (1-3) Carvedilol (Coreg) 25 mg PO BID [facility] Last Admin: 01/24/17 09:50 Dose: 25 mg Clopidogrel Bisulfate (Plavix) 75 mg PO DAILY [facility] Last Admin: 01/24/17 10:44 Dose: 75 mg Enoxaparin Sodium (Lovenox) 40 mg SC DAILY [facility] Last Admin: 01/24/17 10:44 Dose: 40 mg Gabapentin (Neurontin) 300 mg PO TID [facility] Last Admin: 01/24/17 13:15 Dose: 300 mg Hydromorphone HCl (Dilaudid) 0.5 mg IVP Q4H PRN PRN Reason: Pain, severe (8-10) Last Admin: 01/20/17 12:38 Dose: 0.5 mg Vancomycin/Sodium Chloride (Vancomycin 1 Gm/Ns 200 Ml) 1 gm in 200 mls @ 133.333 mls/hr IVPB Q24H [facility] Last Admin: 01/23/17 17:28 Dose: 133.333 mls/hr Imipenem/Cilastatin Sodium 500 (mg/ Sodium Chloride) 100 mls @ 100 mls/hr IVPB Q8H [facility] Last Admin: 01/24/17 13:15 Dose: 100 mls/hr Insulin Aspart (Novolog) 0 unit SC ACHS [facility] PRN Reason: Protocol Last Admin: 01/24/17 13:15 Dose: Not Given Insulin Glargine (Lantus) 35 unit SC Q12 [facility] Last Admin: 01/22/17 10:00 Dose: Not Given Ipratropium [place] (Atrovent Hfa) 2 puff IH RQ6 PRN PRN Reason: Shortness of Breath Lidocaine (Lidoderm) 1 ea TD Q24H [facility] Last Admin: 01/23/17 17:28 Dose: 1 ea Lisinopril (Zestril) 5 mg PO DAILY [facility] Last Admin: 01/24/17 09:50 Dose: 5 mg Multivitamins/Minerals (Therapeutic-M Tab) 1 tab PO DAILY [facility] Last Admin: 01/24/17 09:49 Dose: 1 tab Ondansetron HCl (Zofran Inj) 4 mg IVP Q6H PRN PRN Reason: Nausea/Vomiting Last Admin: 01/19/17 17:59 Dose: 4 mg Oxycodone/Acetaminophen (Percocet 5/325 Mg Tab) 2 tab PO Q4H PRN PRN Reason: Pain, moderate (4-7) Stop: 01/25/17 18:34 Last Admin: 01/24/17 09:51 Dose: 2 tab Rosuvastatin Calcium (Crestor) 5 mg PO HS [facility] Last Admin: 01/23/17 21:05 Dose: 5 mg Sennosides (Senokot Tab) 8.6 mg PO DAILY [facility] Last Admin: 01/24/17 10:44 Dose: 8.6 mg Thiamine HCl (Vitamin B1 Tab) 100 mg PO DAILY [facility] Last Admin: 01/24/17 09:49 Dose: 100 mg Zolpidem Tartrate (Ambien) 5 mg PO HS PRN PRN Reason: Insomnia Last Admin: 01/20/17 23:04 Dose: 5 mg - Labs Labs: 01/22/17 08:07 01/22/17 08:07 PT 11.9 SECONDS (9.7-12.2) 01/20/17 07:49 INR 1.0 01/20/17 07:49 APTT 32 SECONDS (21-34) 01/20/17 07:49 - Constitutional Appears: Well, Non-toxic, No Acute Distress - Extremities Exam Additional comments: Left leg above knee amputation noted. Right lower extremity focused. Dressings are clean, dry, and intact. VASC: DP and PT pulses non-palpable. DP pulses was faintly monophasic upon doppler examination. Temperature gradient is warm to warm proximal to distal. Absent capillary digital refill time to 5th digit, remaining 4 digits capillary refill time <3 seconds. NEURO: Protective sensation grossly diminished. DERM: Sutures intact to surgical site on the 5th digit, no signs of dehisence noted. No malodor, no drainage, no acute signs of infection noted. Ortho: No tenderness to palpation noted. Pedal muscle strength graded 5/5 in all 4 major muscle groups. - Neurological Exam Neurological Exam: Alert, Awake, Oriented x3 - Psychiatric Exam Psychiatric exam: Normal Affect, Normal Mood Assessment and Plan - Assessment and Plan (Free Text) Assessment: 51 year old male 1 day s/p right 5th digit amputation Plan: Patient was evaluated and treated at bedside with attending Dr. Malik Chart, labs, and vitals reviewed - afebrile Right foot surgical site dressed with xeroform and DSD Continue pain medications Continue IV abx Patient to follow up with Dr. Malik upon discharge Podiatry will continue to follow while in house
--- NOTE | 2017-01-24 14:18 | CP.PCM.PN ---
Subjective - Date & Time of Evaluation Date of Evaluation: 01/24/17 Time of Evaluation: 14:18 - Subjective Subjective: Events noted. S/P NEW RIGHT UPPER ARM picc LINE.. PATIENT'S DRESSING FELL OFF LAST NIGHT HE CHANGED IT HIMSELF. RT. FOOT IN NEW DRESSING-C/D/I. pATIENT FOR SUBACUTE REHABILITATION TODAY-[facility]. Objective - Vital Signs/Intake and Output Vital Signs (last 24 hours): Temp Pulse Resp BP Pulse Ox 97.7 F 102 H 20 124/82 99 01/24/17 08:28 01/24/17 09:50 01/24/17 08:28 01/24/17 09:50 01/24/17 08:28 Intake and Output: 01/24/17 01/24/17 06:59 18:59 Intake Total 1900 Balance 1900 - Medications Medications: Current Medications Acetaminophen (Tylenol 325mg Tab) 650 mg PO Q6 PRN PRN Reason: Pain, Mild (1-3) Carvedilol (Coreg) 25 mg PO BID [facility] Last Admin: 01/24/17 09:50 Dose: 25 mg Clopidogrel Bisulfate (Plavix) 75 mg PO DAILY [facility] Last Admin: 01/24/17 10:44 Dose: 75 mg Enoxaparin Sodium (Lovenox) 40 mg SC DAILY [facility] Last Admin: 01/24/17 10:44 Dose: 40 mg Gabapentin (Neurontin) 300 mg PO TID [facility] Last Admin: 01/24/17 13:15 Dose: 300 mg Hydromorphone HCl (Dilaudid) 0.5 mg IVP Q4H PRN PRN Reason: Pain, severe (8-10) Last Admin: 01/20/17 12:38 Dose: 0.5 mg Vancomycin/Sodium Chloride (Vancomycin 1 Gm/Ns 200 Ml) 1 gm in 200 mls @ 133.333 mls/hr IVPB Q24H [facility] Last Admin: 01/23/17 17:28 Dose: 133.333 mls/hr Imipenem/Cilastatin Sodium 500 (mg/ Sodium Chloride) 100 mls @ 100 mls/hr IVPB Q8H [facility] Last Admin: 01/24/17 13:15 Dose: 100 mls/hr Insulin Aspart (Novolog) 0 unit SC ACHS [facility] PRN Reason: Protocol Last Admin: 01/24/17 13:15 Dose: Not Given Insulin Glargine (Lantus) 35 unit SC Q12 [facility] Last Admin: 01/22/17 10:00 Dose: Not Given Ipratropium [place] (Atrovent Hfa) 2 puff IH RQ6 PRN PRN Reason: Shortness of Breath Lidocaine (Lidoderm) 1 ea TD Q24H [facility] Last Admin: 01/23/17 17:28 Dose: 1 ea Lisinopril (Zestril) 5 mg PO DAILY [facility] Last Admin: 01/24/17 09:50 Dose: 5 mg Multivitamins/Minerals (Therapeutic-M Tab) 1 tab PO DAILY [facility] Last Admin: 01/24/17 09:49 Dose: 1 tab Ondansetron HCl (Zofran Inj) 4 mg IVP Q6H PRN PRN Reason: Nausea/Vomiting Last Admin: 01/19/17 17:59 Dose: 4 mg Oxycodone/Acetaminophen (Percocet 5/325 Mg Tab) 2 tab PO Q4H PRN PRN Reason: Pain, moderate (4-7) Stop: 01/25/17 18:34 Last Admin: 01/24/17 09:51 Dose: 2 tab Rosuvastatin Calcium (Crestor) 5 mg PO HS [facility] Last Admin: 01/23/17 21:05 Dose: 5 mg Sennosides (Senokot Tab) 8.6 mg PO DAILY [facility] Last Admin: 01/24/17 10:44 Dose: 8.6 mg Thiamine HCl (Vitamin B1 Tab) 100 mg PO DAILY [facility] Last Admin: 01/24/17 09:49 Dose: 100 mg Zolpidem Tartrate (Ambien) 5 mg PO HS PRN PRN Reason: Insomnia Last Admin: 01/20/17 23:04 Dose: 5 mg - Labs Labs: 01/22/17 08:07 01/22/17 08:07 PT 11.9 SECONDS (9.7-12.2) 01/20/17 07:49 INR 1.0 01/20/17 07:49 APTT 32 SECONDS (21-34) 01/20/17 07:49 - Constitutional Appears: No Acute Distress - Head Exam Head Exam: NORMAL INSPECTION - Eye Exam Eye Exam: EOMI, PERRL - ENT Exam ENT Exam: Normal Oropharynx - Neck Exam Neck Exam: Normal Inspection - Respiratory Exam Respiratory Exam: Clear to Ausculation Bilateral - GI/Abdominal Exam GI & Abdominal Exam: Soft, Normal Bowel Sounds - Extremities Exam Extremities Exam: absent: Calf Tenderness, Pedal Edema (LT. AKA.RT FOOT IN DRESSING POSTOPERATIVE PERIOD) - Neurological Exam Neurological Exam: Awake, CN II-XII Intact, Oriented x3 - Skin Skin Exam: Normal Color, Warm Assessment and Plan (1) Gangrene of toe of right foot Assessment & Plan: S/P AMPUTATION RIGHT FOOT 5TH DIGIT 01/23/17 RIGHT FOOT POSTOPERATIVE DRESSING DRY. PATIENT ON iv ANTIBIOTICS. CONTINUE iv IMIPENEM 500 EVERY 8 HOURLY X 10 DAYS. CONTINUE iv VANCOMYCIN 1 G ONCE A DAY FOR 10 DAYS. FOLLOW-UP vANCO TROUGH LEVEL PRIOR TO THE FOURTH DOSE AND KEEP IT BETWEEN 10 AND 20. MONITOR RENAL FUNCTIONS CLOSELY. Status: Acute (2) Peripheral vascular disease Assessment & Plan: PT S/P ATHERECTOMY/AND 5.5CM STENT PLACEMENT RT.SFA ON 01/20/[address] PHILLIPS. Status: Chronic (3) HTN (hypertension) Status: Acute (4) Diabetes mellitus Status: Chronic (5) Above knee amputation of left lower extremity Status: Acute
[2017-01-24 14:40] LABS: BASO # 0.1 K/uL (0.0-0.2); BASO % 0.8 % (0.0-2.0); EOS # 0.1 K/uL (0.0-0.7); EOS % 1.4 % (0.0-4.0); HEMATOCRIT 35.4 % (35.0-51.0); LYMPH # 1.3 K/uL (1.0-4.3); LYMPH % 13.9 % (20.0-40.0); MEAN CORPUSCULAR HEMOGLOBIN 33.6 pg (27.0-31.0); MEAN CORPUSCULAR HGB CONC 33.6 g/dL (33.0-37.0); MEAN PLATELET VOLUME 8.9 fL (7.2-11.7); MONO # 0.7 K/uL (0.0-0.8); MONO % 7.8 % (0.0-10.0)
--- NOTE | 2017-01-24 14:51 | PN ---
DATE: FOLLOWUP SUBJECTIVE: The patient denies chest pain. PHYSICAL EXAMINATION: VITAL SIGNS: Blood pressure 124/82, heart rate is 102, temperature 97.7, respirations 20. HEENT: Normocephalic. CHEST: Clear. HEART: S1 and S2 regular. EXTREMITIES: Left above-knee amputation. LABORATORY DATA: EKG done yesterday revealed normal sinus rhythm, poor R-wave progression. ASSESSMENT: 1. Status post right fifth toe amputation. 2. History of left above-knee amputation 1 year ago. 3. Uncontrolled diabetes mellitus. 4. Status post right superficial femoral artery stenting. RECOMMENDATIONS: Continue Coreg 25 mg once a day, Crestor 5 mg once a day, IV imipenem at 500 mg q. 8 hours, Lovenox at 40 mg subcutaneously once a day, Plavix 75 mg once a day, Zestril 5 mg once a day. The patient underwent a PICC line placement today for long-term IV antibiotic therapy and subacute rehab. Christiano Oviedo MD
[2017-01-24 15:00] LABS: BLOOD UREA NITROGEN 6 mg/dL (9-20); CALCIUM 7.3 mg/dl (8.6-10.4); CARBON DIOXIDE 29 mmol/L (22-30); CHLORIDE 102 mmol/L (98-107); GFR AFRICAN-AMERICAN > 60; GLUCOSE,RANDOM 165 mg/dL (75-110); POTASSIUM 3.8 mmol/L (3.6-5.2); SODIUM 136 mmol/L (132-148)
[2017-01-24 15:47] VITALS: PULSE 88; TEMP 97.4; O2SAT 96
--- NOTE | 2017-01-24 16:09 | CP.PCM.PN ---
Subjective - Date & Time of Evaluation Date of Evaluation: 01/24/17 Time of Evaluation: 16:00 - Subjective Subjective: patient seen today , denies any chest pain, sob, abdominal pain, c/o pain to the Left leg , improved with pain medication s/p right 5th digit amputation s/p RLE angio w/ balloon dilation. POD #5 a febrile Objective - Vital Signs/Intake and Output Vital Signs (last 24 hours): Temp Pulse Resp BP Pulse Ox 97.4 F L 88 20 116/83 96 01/24/17 15:41 01/24/17 15:41 01/24/17 15:41 01/24/17 15:41 01/24/17 15:41 Intake and Output: 01/24/17 01/24/17 06:59 18:59 Intake Total 1900 810 Balance 1900 810 - Medications Medications: Current Medications Acetaminophen (Tylenol 325mg Tab) 650 mg PO Q6 PRN PRN Reason: Pain, Mild (1-3) Carvedilol (Coreg) 25 mg PO BID [facility] Last Admin: 01/24/17 09:50 Dose: 25 mg Clopidogrel Bisulfate (Plavix) 75 mg PO DAILY [facility] Last Admin: 01/24/17 10:44 Dose: 75 mg Enoxaparin Sodium (Lovenox) 40 mg SC DAILY [facility] Last Admin: 01/24/17 10:44 Dose: 40 mg Gabapentin (Neurontin) 300 mg PO TID [facility] Last Admin: 01/24/17 13:15 Dose: 300 mg Hydromorphone HCl (Dilaudid) 0.5 mg IVP Q4H PRN PRN Reason: Pain, severe (8-10) Last Admin: 01/20/17 12:38 Dose: 0.5 mg Vancomycin/Sodium Chloride (Vancomycin 1 Gm/Ns 200 Ml) 1 gm in 200 mls @ 133.333 mls/hr IVPB Q24H [facility] Last Admin: 01/23/17 17:28 Dose: 133.333 mls/hr Imipenem/Cilastatin Sodium 500 (mg/ Sodium Chloride) 100 mls @ 100 mls/hr IVPB Q8H [facility] Last Admin: 01/24/17 13:15 Dose: 100 mls/hr Insulin Aspart (Novolog) 0 unit SC ACHS [facility] PRN Reason: Protocol Last Admin: 01/24/17 13:15 Dose: Not Given Insulin Glargine (Lantus) 35 unit SC Q12 [facility] Last Admin: 01/22/17 10:00 Dose: Not Given Ipratropium [place] (Atrovent Hfa) 2 puff IH RQ6 PRN PRN Reason: Shortness of Breath Lidocaine (Lidoderm) 1 ea TD Q24H [facility] Last Admin: 01/23/17 17:28 Dose: 1 ea Lisinopril (Zestril) 5 mg PO DAILY [facility] Last Admin: 01/24/17 09:50 Dose: 5 mg Multivitamins/Minerals (Therapeutic-M Tab) 1 tab PO DAILY [facility] Last Admin: 01/24/17 09:49 Dose: 1 tab Ondansetron HCl (Zofran Inj) 4 mg IVP Q6H PRN PRN Reason: Nausea/Vomiting Last Admin: 01/24/17 15:12 Dose: 4 mg Oxycodone/Acetaminophen (Percocet 5/325 Mg Tab) 2 tab PO Q4H PRN PRN Reason: Pain, moderate (4-7) Stop: 01/25/17 18:34 Last Admin: 01/24/17 09:51 Dose: 2 tab Rosuvastatin Calcium (Crestor) 5 mg PO HS [facility] Last Admin: 01/23/17 21:05 Dose: 5 mg Sennosides (Senokot Tab) 8.6 mg PO DAILY [facility] Last Admin: 01/24/17 10:44 Dose: 8.6 mg Thiamine HCl (Vitamin B1 Tab) 100 mg PO DAILY [facility] Last Admin: 01/24/17 09:49 Dose: 100 mg Zolpidem Tartrate (Ambien) 5 mg PO HS PRN PRN Reason: Insomnia Last Admin: 01/20/17 23:04 Dose: 5 mg - Labs Labs: 01/24/17 14:35 01/24/17 14:35 PT 11.9 SECONDS (9.7-12.2) 01/20/17 07:49 INR 1.0 01/20/17 07:49 APTT 32 SECONDS (21-34) 01/20/17 07:49 - Constitutional Appears: Well, No Acute Distress - Respiratory Exam Respiratory Exam: Clear to Ausculation Bilateral, NORMAL BREATHING PATTERN - Cardiovascular Exam Cardiovascular Exam: REGULAR RHYTHM, +S1, +S2 - Extremities Exam Extremities Exam: Full ROM (dressing intact to the R leg ) - Neurological Exam Neurological Exam: Alert, Awake, Oriented x3 Assessment and Plan - Assessment and Plan (Free Text) Assessment: A/P 51 yr old male admitted with Gangrene of toe of right foot, and Peripheral vascular disease s/p amputation of R 5th toe D/W Dr. Akash Gifford , stable for discharge to [facility] from ID standpoint and continue vancomycin and primaxin x 10 days D/W Dr. Malik. cleared from podiatry stand point an dDr. Malik will follow epateint at [facility] D/W Dr. Lee , cleared for discharge to [facility] and Dr. Lee will follow the patient at [facility] discharge plan discussed with patient who understands and agrees with plan
[2017-01-24] MEDS: Vancomycin 1 gm/NS 200 ml 1 GM/200 ML BAG IVPB SCH (17:00)
[2017-01-24] MEDS: Lidocaine 5% Patch TD SCH (18:48)
[2017-01-24 18:49] VITALS: BP 134/87
--- NOTE | 2017-01-24 22:10 | CP.PCM.DIS ---
Provider - Provider Date of Admission: 01/15/17 14:12 Attending physician: Jagdeep Lee MD Time Spent in preparation of Discharge (in minutes): 56 Diagnosis - Discharge Diagnosis (1) Gangrene of toe of right foot Status: Acute (2) Diabetes mellitus Status: Chronic (3) PAD (peripheral artery disease) Status: Chronic Hospital Course - Lab Results Lab Results: Micro Results 01/15/17 13:30 Blood Blood Culture - Final NO GROWTH AFTER 5 DAYS 01/15/17 13:30 Blood Gram Stain - Final TEST NOT PERFORMED 01/15/17 13:00 Blood Blood Culture - Final NO GROWTH AFTER 5 DAYS 01/15/17 13:00 Blood Gram Stain - Final TEST NOT PERFORMED 01/15/17 21:49 Foot - Right Gram Stain - Final 01/15/17 21:49 Foot - Right Wound Culture - Final Methicillin Resistant S Aureus Klebsiella Ozaenae 01/16/17 Unknown Urine Urine Culture - Final No Growth (<1,000 CFU/ML) Most Recent Lab Values WBC 9.0 K/uL (4.8-10.8) 01/24/17 14:35 RBC 3.54 Mil/uL (4.40-5.90) L 01/24/17 14:35 Hgb 11.9 g/dL (12.0-18.0) L 01/24/17 14:35 Hct 35.4 % (35.0-51.0) 01/24/17 14:35 MCV 100.0 fL (80.0-94.0) H 01/24/17 14:35 MCH 33.6 pg (27.0-31.0) H 01/24/17 14:35 MCHC 33.6 g/dL (33.0-37.0) 01/24/17 14:35 RDW 15.0 % (11.5-14.5) H 01/24/17 14:35 Plt Count 151 K/uL (130-400) 01/24/17 14:35 MPV 8.9 fL (7.2-11.7) 01/24/17 14:35 Neut % (Auto) 76.1 % (50.0-75.0) H 01/24/17 14:35 Lymph % (Auto) 13.9 % (20.0-40.0) L 01/24/17 14:35 [place] % (Auto) 7.8 % (0.0-10.0) 01/24/17 14:35 Eos % (Auto) 1.4 % (0.0-4.0) 01/24/17 14:35 Baso % (Auto) 0.8 % (0.0-2.0) 01/24/17 14:35 Neut # 6.9 K/uL (1.8-7.0) 01/24/17 14:35 Lymph # 1.3 K/uL (1.0-4.3) 01/24/17 14:35 [place] # 0.7 K/uL (0.0-0.8) 01/24/17 14:35 Eos # 0.1 K/uL (0.0-0.7) 01/24/17 14:35 Baso # 0.1 K/uL (0.0-0.2) 01/24/17 14:35 ESR 50 mm/hr (0-15) H 01/22/17 08:07 PT 11.9 SECONDS (9.7-12.2) 01/20/17 07:49 INR 1.0 01/20/17 07:49 APTT 32 SECONDS (21-34) 01/20/17 07:49 Sodium 136 mmol/L (132-148) 01/24/17 14:35 Potassium 3.8 mmol/L (3.6-5.2) 01/24/17 14:35 Chloride 102 mmol/L (98-107) 01/24/17 14:35 Carbon Dioxide 29 mmol/L (22-30) 01/24/17 14:35 Anion Gap 8 (10-20) L 01/24/17 14:35 BUN 6 mg/dL (9-20) L 01/24/17 14:35 Creatinine 0.5 mg/dL (0.8-1.5) L 01/24/17 14:35 Est GFR ( Amer) > 60 01/24/17 14:35 Est GFR (Non-Af Amer) > 60 01/24/17 14:35 POC Glucose (mg/dL) 95 mg/dL (65-110) 01/24/17 16:09 Random Glucose 165 mg/dL (75-110) H 01/24/17 14:35 Calcium 7.3 mg/dl (8.6-10.4) L 01/24/17 14:35 Total Bilirubin 0.4 mg/dL (0.2-1.3) 01/22/17 08:07 Direct Bilirubin 0.3 mg/dL (0.0-0.4) 01/22/17 08:07 AST 30 U/L (17-59) 01/22/17 08:07 ALT 37 U/L (21-72) 01/22/17 08:07 Alkaline Phosphatase 100 U/L (38-126) 01/22/17 08:07 C-React Prot High Sens 13.23 mg/L (1.00-3.00) H 01/22/17 08:07 Total Protein 6.1 g/dL (6.3-8.3) L 01/22/17 08:07 Albumin 2.9 g/dL (3.5-5.0) L 01/22/17 08:07 Globulin 3.1 gm/dL (2.2-3.9) 01/22/17 08:07 Albumin/Globulin Ratio 0.9 (1.0-2.1) L 01/22/17 08:07 Urine Color Yellow (YELLOW) 01/15/17 13:26 Urine Clarity Clear (Clear) 01/15/17 13:26 Urine pH 6.0 (5.0-8.0) 01/15/17 13:26 Ur Specific [place] 1.009 (1.003-1.030) 01/15/17 13:26 Urine Protein Negative mg/dL (NEGATIVE) 01/15/17 13:26 Urine Glucose (UA) Normal mg/dL (Normal) 01/15/17 13:26 Urine Ketones Negative mg/dL (NEGATIVE) 01/15/17 13:26 Urine Blood Negative (NEGATIVE) 01/15/17 13:26 Urine Nitrate Positive (NEGATIVE) H 01/15/17 13:26 Urine Bilirubin Negative (NEGATIVE) 01/15/17 13:26 Urine Urobilinogen Normal mg/dL (0.2-1.0) 01/15/17 13:26 Ur Leukocyte Esterase 1+ Clement/uL (Negative) H 01/15/17 13:26 Urine WBC (Auto) 20 /hpf (0-5) H 01/15/17 13:26 Urine Bacteria Many (<OCC) H 01/15/17 13:26 Vancomycin Trough < 5.0 ug/mL (5.0-10.0) L 01/24/17 14:35 Blood Type A POSITIVE 01/19/17 08:07 Antibody Screen Negative 01/19/17 08:07 - Hospital Course Hospital Course: patient seen today , denies any chest pain, sob, abdominal pain, c/o pain to the Left leg , improved with pain medication s/p right 5th digit amputation s/p RLE angio w/ balloon dilation. POD #5 a febrile Pt is for discharge to [facility] Discharge Exam - Head Exam Head Exam: NORMAL INSPECTION Discharge Plan - Discharge Medications Prescriptions: Vancomycin 1 GM [Vancomycin 1GM in Normal Saline Addvantage] 1 gm IVPB DAILY # 10 bag Ondansetron [Zofran] 4 mg PO Q8H #20 tab - Follow Up Plan Condition: STABLE Disposition: REHAB FACILITY/REHAB UNIT Instructions: Peripheral Artery Disease (DC), Peripheral Artery Disease (GEN), Hypertension (DC), Hypertension (GEN), Necrotizing Fasciitis (DC), Necrotizing Fasciitis (GEN) Additional Instructions: Please admit patient under Dr. Lee service - Call Dr. Lee upon patient arrival to the facility Please call Dr. Malik for consult for f/u R 5th toe amputation if un able to see patient please make appointment to his office to see pateint continue antibiotics vancomycin and primaxin for 10 more days vanco trough weekly starting Friday to keep vanco trough between 10-20 cbc , bmp q week starting Friday
--- NOTE | 2017-01-26 09:46 | CARD ---
APPROVED REPORT EKG Measurement Heart [id number] <Conclusion> Normal sinus rhythm Low voltage QRS Cannot rule out Anterior infarct, age undetermined Abnormal ECG
== END 2017-01-24 20:02 | DRG 272 ==
LOC: C.ER 11:53 → C.9E 14:12 → C.3T 17:19 → C.5S 01-21 11:18
PROVIDERS: ADMIT Internal Medicine; ATTEND Internal Medicine
PROC: 04CK3ZZ Extirpation of Matter from Right Femoral Artery, Percutaneous Approach (ICD-10-PCS; 2017-01-20)
PROC: 047K3D1 Dilation of Right Femoral Artery with Intraluminal Device, using Drug-Coated Balloon, Percutaneous Approach (ICD-10-PCS; 2017-01-20)
PROC: 0Y6X0Z1 Detachment at Right 5th Toe, High, Open Approach (ICD-10-PCS; principal; 2017-01-23 08:00)
PROC: 02HV33Z Insertion of Infusion Device into Superior Vena Cava, Percutaneous Approach (ICD-10-PCS; 2017-01-24)
DX: I70.268 Atherosclerosis of native arteries of extremities with gangrene, other extremity (principal); I27.20 Pulmonary hypertension, unspecified; E11.65 Type 2 diabetes mellitus with hyperglycemia; B95.62 Methicillin resistant Staphylococcus aureus infection as the cause of diseases classified elsewhere; E78.00 Pure hypercholesterolemia, unspecified; F12.90 Cannabis use, unspecified, uncomplicated; L98.499 Non-pressure chronic ulcer of skin of other sites with unspecified severity; F41.9 Anxiety disorder, unspecified; F17.210 Nicotine dependence, cigarettes, uncomplicated; F32.9 Major depressive disorder, single episode, unspecified; J44.9 Chronic obstructive pulmonary disease, unspecified; I10 Essential (primary) hypertension; Z89.512 Acquired absence of left leg below knee; Z79.4 Long term (current) use of insulin

== ENCOUNTER 2017-03-27 12:48 | Inpatient (IN) | payer MEDICARE ==
[2017-03-27 14:21] VITALS: BMI 26.7
[2017-03-27 15:32] LABS: BASO # 0.1 K/uL (0.0-0.2); EOS # 0.3 K/uL (0.0-0.7); HEMOGLOBIN 13.8 g/dL (12.0-18.0); LYMPH # 1.8 K/uL (1.0-4.3); MEAN CORPUSCULAR HEMOGLOBIN 34.1 pg (27.0-31.0); MONO # 0.8 K/uL (0.0-0.8)
[2017-03-27 15:39] LABS: BASO % 0.7 % (0.0-2.0); EOS % 2.6 % (0.0-4.0); LYMPH % 16.5 % (20.0-40.0); MEAN CORPUSCULAR HGB CONC 34.9 g/dL (33.0-37.0); MONO % 7.6 % (0.0-10.0); NEUT # 7.7 K/uL (1.8-7.0); NEUT % 72.6 % (50.0-75.0); RBC 4.06 Mil/uL (4.40-5.90); RED CELL DISTRIBUTION WIDTH 14.3 % (11.5-14.5); WHITE BLOOD COUNT 10.7 K/uL (4.8-10.8)
[2017-03-27 15:46] LABS: ALB/GLOB RATIO 0.8 (1.0-2.1); ALBUMIN 3.5 g/dL (3.5-5.0); ALT/SGPT 8 U/L (21-72); AST/SGOT 26 U/L (17-59); BLOOD UREA NITROGEN 5 mg/dL (9-20); CALCIUM 8.3 mg/dl (8.6-10.4); GFR AFRICAN-AMERICAN > 60; GFR NON-AFRICAN AMERICAN > 60
[2017-03-27 15:49] LABS: MEAN CELL VOLUME 97.7 fL (80.0-94.0)
[2017-03-27] MEDS ORDERED: Piperacillin/Tazobact 3.375 GM in Sodium Chloride 100 ML IVPB STA (16:04)
[2017-03-27] MEDS ORDERED: Piperacillin/Tazobact 3.375 gm 100 ML IVPB ONE ×2 (16:21→16:22)
[2017-03-27] MEDS ORDERED: Morphine 4 MG/ML VIAL ONE (16:21)
--- NOTE | 2017-03-27 16:27 | RAD ---
PROCEDURE: Right Foot Radiographs. HISTORY: gangrene of foot COMPARISON: 01/23/2017 FINDINGS: BONES: amputation digit- proximal phalanx -mid shaft level here- similar appear. Bifid medial sesamoid. Juxta-articular osteopenia JOINTS: 1st metatarsal joint space narrowing -osteoarthrosis SOFT TISSUES: Few soft tissue swelling especially the mid and forefoot OTHER FINDINGS: None. IMPRESSION: Similar postop changes - juxta-articular osteopenia and arterial vascular calcifications. No interval periosteal reaction appreciated to suggest osteomyelitis Diffuse soft tissue swelling - compatible with lymphedema and/or cellulitis. Calcific arterial vascular disease
[2017-03-27] MEDS ORDERED: Vancomycin 1 gm/NS 200 ml 1 GM/200 ML BAG IVPB ONE (18:00)
--- NOTE | 2017-03-27 19:46 | C.PDOC ---
History Of Present Illness 51 y/o male,referred by church worker, presents to the ER for increasing right foot gangrene.Patient reports that he has pain in his right foot. Patient denies fever, chills, and cough. Time Seen by Provider: 03/27/17 13:30 Chief Complaint (Nursing): Abnormal Skin Integrity History Per: Patient History/Exam Limitations: no limitations Onset/Duration Of Symptoms: Days Current Symptoms Are (Timing): Still Present Severity: Moderate Past Medical History Reviewed: Historical Data, Nursing Documentation, Vital Signs Vital Signs: Last Vital Signs Temp 99.3 F 03/27/17 20:38 Pulse 102 H 03/27/17 20:38 Resp 20 03/27/17 20:38 BP 142/85 03/27/17 20:38 Pulse Ox 97 03/27/17 20:38 - Medical History PMH: Anxiety, Asthma, COPD, Depression (pt. drinks and smokes for depression), Diverticulitis, Gastritis, HTN, Hypercholesterolemia Other Surgeries: Hx of surgeries - [facility] Procedures DETACHMENT AT LEFT 2ND TOE, COMPLETE, OPEN APPROACH (05/08/15) DETACHMENT AT LEFT FEMORAL REGION, OPEN APPROACH (07/06/15) DETACHMENT AT LEFT FOOT, PARTIAL 1ST RAY, OPEN APPROACH (06/01/15) DETACHMENT AT LEFT FOOT, PARTIAL 2ND RAY, OPEN APPROACH (06/01/15) DETACHMENT AT LEFT FOOT, PARTIAL 3RD RAY, OPEN APPROACH (06/01/15) DETACHMENT AT LEFT FOOT, PARTIAL 4TH RAY, OPEN APPROACH (06/01/15) DETACHMENT AT LEFT FOOT, PARTIAL 5TH RAY, OPEN APPROACH (06/01/15) DETACHMENT AT RIGHT 5TH TOE, HIGH, OPEN APPROACH (01/15/17) DILATE R FEM ART W INTRALUM DEV, DRUG BLLN, PERC (01/15/17) DILATION OF L EXT ILIAC ART WITH INTRALUM DEV, PERC APPROACH (06/01/15) DILATION OF L FEM ART WITH INTRALUM DEV, PERC APPROACH (05/08/15) DILATION OF L FOOT ART WITH INTRALUM DEV, PERC APPROACH (05/08/15) EXCISION OF L FOOT SUBCU/FASCIA, OPEN APPROACH (07/06/15) EXCISION OF SIGMOID COLON, OPEN APPROACH (11/16/15) EXTIRPATION OF MATTER FROM L EXT ILIAC ART, PERC APPROACH (06/01/15) EXTIRPATION OF MATTER FROM R FEM ART, PERC APPROACH (01/15/17) FLUOROSCOPY OF SUPERIOR VENA CAVA, GUIDANCE (07/06/15) INSERTION OF INFUSION DEV INTO SUP VENA CAVA, PERC APPROACH (01/15/17) INTRODUCE LOCAL ANESTH IN PERIPH NRV, PLEXI, PERC (11/16/15) INTRODUCE OTH THROMBOLYTIC IN PERIPH VEIN, PERC (06/01/15) REPAIR BLADDER, OPEN APPROACH (11/16/15) Family History: States: No Known Family Hx - Social History Hx Tobacco Use: Yes Hx Alcohol Use: Yes Hx Substance Use: No - Immunization History Hx Tetanus Toxoid Vaccination: Yes Hx Influenza Vaccination: Yes Hx Pneumococcal Vaccination: Yes Review Of Systems Except As Marked, All Systems Reviewed And Found Negative. Constitutional: Negative for: Fever, Chills Respiratory: Negative for: Cough Musculoskeletal: Positive for: Foot Pain (right foot pain) Physical Exam - Physical Exam Appears: Non-toxic, No Acute Distress Skin: Normal Color, Warm Head: Atraumatic, Normacephalic Eye(s): bilateral: Normal Inspection Nose: Normal Oral Mucosa: Moist Neck: Supple Chest: Symmetrical Cardiovascular: Rhythm Regular Respiratory: Normal Breath Sounds, No Accessory Muscle Use, No Rales, No Rhonchi , No Wheezing Gastrointestinal/Abdominal: Normal Exam, Soft, No Tenderness Extremity: Other (LLE: amputation RLE:5th toe amputation, decreased capillary refill, venous changes, gangrene on lateral aspect of right foot) Neurological/Psych: Oriented x3, Normal Speech, Normal Motor, Normal Sensation ED Course And Treatment - Laboratory Results Result Diagrams: 03/27/17 15:28 03/27/17 15:28 O2 Sat by Pulse Oximetry: 95 (RA) Pulse Ox Interpretation: Normal - Other Rad X Ray- Right Foot X-Ray: Viewed By Me, Read By Radiologist Interpretation: PROCEDURE: Right Foot Radiographs. HISTORY: gangrene of foot. COMPARISON: 01/23/2017. FINDINGS: BONES: amputation digit- proximal phalanx -mid shaft level here- similar appear. Bifid medial sesamoid. Juxta- articular osteopenia. JOINTS: 1st metatarsal joint space narrowing - osteoarthrosis. SOFT TISSUES: Few soft tissue swelling especially the mid and forefoot. OTHER FINDINGS: None. IMPRESSION: Similar postop changes - juxta- articular osteopenia and arterial vascular calcifications. No interval periosteal reaction appreciated to suggest osteomyelitis. Diffuse soft tissue swelling - compatible with lymphedema and/or cellulitis. Calcific arterial vascular disease Progress Note: Case discussed with . will admit patient in hospital. Disposition - Disposition Disposition: HOSPITALIZED Disposition Time: 14:45 Condition: FAIR - Clinical Impression Clinical Impression: Diabetic foot infection, Gangrene of right foot - Scribe Statement The provider has reviewed the documentation as recorded by the Consuelo Sampson Provider Attestation: All medical record entries made by the Consuelo were at my direction and personally dictated by me. I have reviewed the chart and agree that the record accurately reflects my personal performance of the history, physical exam, medical decision making, and the department course for this patient. I have also personally directed, reviewed, and agree with the discharge instructions and disposition.
--- NOTE | 2017-03-27 22:52 | CP.PCM.HP ---
History of Present Illness - History of Present Illness History of Present Illness: CC: Right foot pain HPI: 51 y/o male with PMH of DM, HTn, PVD, recent angiograpy and bypass in right LE , PT DID NOT DO WELL AFTER DISCHARGE referred by supervisor parking lot, presents to the ER for increasing right foot gangrene.Patient reports that he has pain in his right foot. Patient denies fever, chills, and cough. Present on Admission - Present on Admission Any Indicators Present on Admission: Yes Review of Systems - Review of Systems Systems not reviewed;Unavailable: Acuity of Condition - Constitutional Constitutional: Fatigue, Lethargy, Malaise - EENT Eyes: absent: As Per HPI, Blind Spots, Blurred Vision, Change in Vision, Decreased Night Vision, Diplopia, Discharge, Dry Eye, Exophthalmos, Floaters, Irritation, Itchy Eyes, Loss of Peripheral Vision, Pain, Photophobia, Requires Corrective Lenses, Sees Flashes, Spots in Vision, Tunnel Vision, Other Visual Disturbances, Loss of Vision, Other - Cardiovascular Cardiovascular: absent: As Per HPI, Acrocyanosis, Chest Pain, Chest Pain at Rest , Chest Pain with Activity, Claudication, Diaphoresis, Dyspnea, Dyspnea on Exertion, Edema, Irregular Heart Rhythm, Pain Radiating to Arm/Neck/Jaw, Leg Edema, Leg Ulcers, Lightheadedness, Orthopnea, Palpitations, Paroxysmal Nocturnal Dyspnea, Pedal Edema, Radiating Pain, Rapid Heart Rate, Slow Heart Rate, Syncope, Other - Respiratory Respiratory: Cough, Dyspnea on Exertion, Excessive Mucous Production - Genitourinary Genitourinary: absent: As Per HPI, Change in Urinary Stream, Difficulty Urinating, Dysuria, Flank Pain, Hematuria, Pyuria, Nocturia, Urinary Incontinence, Urinary Frequency, Urinary Hesitance, Urinary Urgency, Voiding Freq/Small Amts, Freq UTI, Hx Renal/Bladder Calculi, Hx /Renal Surgery, Bladder Distension, Other - Psychiatric Psychiatric: absent: As Per HPI, Abnormal Sleep Pattern, Anhedonia, Anxiety, Auditory Hallucinations, Behavioral Changes, Change in Appetite, Change in Libido, Confusion, Depression, Difficulty Concentrating, Hallucinations, Homicidal Ideation, Hopelessness, Irritability, Memory Loss, Mood Swings, Panic Attacks, Paranoia, Suicidal Ideation, Visual Hallucinations, Tactile Hallucinations, Other - Endocrine Endocrine: Fatigue, Polydipsia, Polyuria Past Patient History - Infectious Disease Hx of Infectious Diseases: None - Past Medical History & Family History Past Medical History?: Yes - Past Social History Smoking Status: Former Smoker - CARDIAC Hx Hypercholesterolemia: Yes Hx Hypertension: Yes - PULMONARY Hx Asthma: Yes Hx Chronic Obstructive Pulmonary Disease (COPD): Yes - ENDOCRINE/METABOLIC Hx Endocrine Disorders: Yes Hx Diabetes Mellitus Type 1: Yes - INTEGUMENTARY Hx Dermatological Problems: Yes Other/Comment: PT HAS BROWN SPOTS ON ARMS AND BACK 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 - MUSCULOSKELETAL/RHEUMATOLOGICAL Hx Falls: No - GASTROINTESTINAL Hx Diverticulitis: Yes Hx Gastritis: Yes - GENITOURINARY/GYNECOLOGICAL Hx Genitourinary Disorders: Yes Hx Urinary Tract Infection: Yes Other/Comment: PT STATES HE HAS BROWN URINE AND SOME FECAL MATERIAL IN HIS URINE. - PSYCHIATRIC Hx Substance Use: No - SURGICAL HISTORY Hx Surgeries: Yes Hx Amputation: Yes (LEFT BKA) Hx Angiogram: Yes Hx Cardiac Catheterization: Yes Hx Femoral-Popliteal Bypass Graft: Yes (X 3) Hx Vascular Surgery: Yes Other/Comment: Vascular bypass surgery femoral bilateral 2011,LT. BELOW KNEE AMPUTATION, right 5th toe amputation - ANESTHESIA Hx Anesthesia: Yes Hx Anesthesia Reactions: No Hx Malignant Hyperthermia: No Meds Allergies/Adverse Reactions: Allergies Allergy/AdvReac Type Severity Reaction Status Date / Time No Known Allergies Allergy Verified 03/27/17 14:16 Physical Exam - Constitutional Appears: No Acute Distress - Eye Exam Eye Exam: EOMI, Normal appearance, PERRL Pupil Exam: NORMAL ACCOMODATION, PERRL - Respiratory Exam Respiratory Exam: Decreased Breath Sounds, Wheezes - Cardiovascular Exam Cardiovascular Exam: REGULAR RHYTHM - GI/Abdominal Exam GI & Abdominal Exam: Normal Bowel Sounds, Soft. absent: Tenderness - Extremities Exam Additional comments: LEFT AKA STUMP IS CLEAN RIGHT LEG WOUND AND POOR PERPRAL PULSES INCLUDING DP AND PT Results - Vital Signs Recent Vital Signs: Last Vital Signs Temp 99.3 F 03/27/17 20:38 Pulse 102 H 03/27/17 20:38 Resp 20 03/27/17 20:38 BP 142/85 03/27/17 20:38 Pulse Ox 97 03/27/17 20:38 - Labs Result Diagrams: 03/27/17 15:28 03/27/17 15:28 Labs: Laboratory Results - last 24 hr 03/27/17 03/27/17 15:28 15:28 WBC 10.7 RBC 4.06 L Hgb 13.8 Hct 39.6 MCV 97.7 H D MCH 34.1 H MCHC 34.9 RDW 14.3 Plt Count 116 L D MPV 9.0 Neut % (Auto) 72.6 Lymph % (Auto) 16.5 L [place] % (Auto) 7.6 Eos % (Auto) 2.6 Baso % (Auto) 0.7 Neut # (Auto) 7.7 H Lymph # (Auto) 1.8 [place] # (Auto) 0.8 Eos # (Auto) 0.3 Baso # (Auto) 0.1 Differential Comment Sodium 132 Potassium 3.4 L Chloride 94 L Carbon Dioxide 25 Anion Gap 16 BUN 5 L Creatinine 0.5 L Est GFR ( Amer) > 60 Est GFR (Non-Af Amer) > 60 Random Glucose 138 H Calcium 8.3 L Total Bilirubin 0.4 AST 26 ALT 8 L D Alkaline Phosphatase 117 Total Protein 7.7 Albumin 3.5 D Globulin 4.2 H Albumin/Globulin Ratio 0.8 L Assessment & Plan (1) Diabetic foot infection Status: Acute (2) Gangrene of right foot Status: Acute (3) Above knee amputation of left lower extremity Status: Acute (4) HTN (hypertension) Status: Acute (5) COPD (chronic obstructive pulmonary disease) Status: Chronic (6) Diabetes mellitus Status: Chronic (7) PAD (peripheral artery disease) Status: Chronic
[2017-03-28] MEDS ORDERED: Potassium Chloride 20 mEq/15 ml LIQ UD PO STA (02:42)
[2017-03-28] MEDS ORDERED: CILASTATIN IVPB SCH (02:45)
[2017-03-28] MEDS ORDERED: IMIPENEM IVPB SCH (02:45)
[2017-03-28] MEDS ORDERED: Piperacill/Tazo 3.375gm in Dex 3.375 GM/50 ML BAG IVPB SCH (02:45)
[2017-03-28] MEDS: Oxycodone/Acetaminophen 5/325 mg Tab PO PRN ×5 (03:55→21:22)
--- NOTE | 2017-03-28 04:42 | CP.PCM.PN ---
Subjective - Date & Time of Evaluation Date of Evaluation: 03/28/17 Time of Evaluation: 04:25 - Subjective Subjective: Vascular Surgery Dr. Fernández 51 y/o M w/ PMHx of PAD presents to the ED at the direction of Dr. Malik. Pt was seen in clinic and noted to have worsening R foot gangrene. Pt was admitted in January for R 5th toe discoloration. During that admission, pt underwent R SFA stent placement for SFA stenosis and 5th toe amputation. On this admission, pt reports worsen pain to R foot. Pt denies F/C, N/V. PMHx: Anxiety, asthma/COPD, DM, HTN, HLD Meds: reviewed in chart NKDA PSHx: R SFA stenting (01/2017)Left AKA (07/2015), Ex Lap LAR, bowel resection, repair of colovesicular fistula (11/2015), Fem-Fem bypass 2011 at [facility] [place], [place] SHx: smokes 1-1.5ppd x40yrs, 1 pint of vodka per day, occasional marijuana use FHx: noncontributory Objective - Vital Signs/Intake and Output Vital Signs (last 24 hours): Temp Pulse Resp BP Pulse Ox 98.4 F 94 H 20 121/80 95 03/28/17 00:00 03/28/17 00:00 03/28/17 00:00 03/28/17 00:00 03/28/17 00:07 - Medications Medications: Current Medications Acetaminophen (Tylenol 325mg Tab) 650 mg PO Q6 PRN PRN Reason: Pain, Mild (1-3) Carvedilol (Coreg) 25 mg PO BID [facility] Clopidogrel Bisulfate (Plavix) 75 mg PO DAILY [facility] Enoxaparin Sodium (Lovenox) 40 mg SC DAILY [facility] Gabapentin (Neurontin) 300 mg PO TID [facility] Piperacillin Sod/Tazobactam Sod (Zosyn 3.375 Gm Iv Premix) 3.375 gm in 50 mls @ 100 mls/hr IVPB Q6H [facility] Last Admin: 03/28/17 03:30 Dose: 100 mls/hr Vancomycin/Sodium Chloride (Vancomycin 1 Gm/Ns 200 Ml) 1 gm in 200 mls @ 133.333 mls/hr IVPB Q12H [facility] Stop: 04/02/17 07:46 Insulin Aspart (Novolog) 0 unit SC ACHS [facility] PRN Reason: Protocol Insulin Glargine (Lantus) 35 unit SC Q12 [facility] Multivitamins/Minerals (Therapeutic-M Tab) 1 tab PO DAILY [facility] Ondansetron HCl (Zofran Tab) 4 mg PO Q8H PRN PRN Reason: Nausea/Vomiting Oxycodone/Acetaminophen (Percocet 5/325 Mg Tab) 2 tab PO Q4H PRN PRN Reason: Pain, moderate (4-7) Stop: 03/31/17 02:39 Last Admin: 03/28/17 03:55 Dose: 2 tab Rosuvastatin Calcium (Crestor) 5 mg PO HS [facility] Sennosides (Senokot Tab) 8.6 mg PO DAILY [facility] Thiamine HCl (Vitamin B1 Tab) 100 mg PO DAILY [facility] Zolpidem Tartrate (Ambien) 5 mg PO HS PRN PRN Reason: Insomnia - Labs Labs: 03/27/17 15:28 03/27/17 15:28
--- NOTE | 2017-03-28 04:45 | CP.PCM.CON ---
History of Present Illness - History of Present Illness History of Present Illness: Vascular Surgery Dr. Fernández 51 y/o M w/ PMHx of PAD presents to the ED at the direction of Dr. Malik. Pt was seen in clinic and noted to have worsening R foot gangrene. Pt was admitted in January for R 5th toe discoloration. During that admission, pt underwent R SFA stent placement for SFA stenosis and 5th toe amputation. On this admission, pt reports worsen pain to R foot. Pt denies F/C, N/V. PMHx: Anxiety, asthma/COPD, DM, HTN, HLD Meds: reviewed in chart NKDA PSHx: R SFA stenting (01/2017)Left AKA (07/2015), Ex Lap LAR, bowel resection, repair of colovesicular fistula (11/2015), Fem-Fem bypass 2011 at [facility] [place] SHx: smokes 1-1.5ppd x40yrs, 1 pint of vodka per day, occasional marijuana use FHx: noncontributory Review of Systems - Review of Systems All systems: reviewed and no additional remarkable complaints except (see HPI) Past Patient History - Infectious Disease Hx of Infectious Diseases: None - Past Medical History & Family History Past Medical History?: Yes - Past Social History Smoking Status: Former Smoker - CARDIAC Hx Hypercholesterolemia: Yes Hx Hypertension: Yes - PULMONARY Hx Asthma: Yes Hx Chronic Obstructive Pulmonary Disease (COPD): Yes - ENDOCRINE/METABOLIC Hx Endocrine Disorders: Yes Hx Diabetes Mellitus Type 1: Yes - INTEGUMENTARY Hx Dermatological Problems: Yes Other/Comment: PT HAS BROWN SPOTS ON ARMS AND BACK 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 - MUSCULOSKELETAL/RHEUMATOLOGICAL Hx Falls: No - GASTROINTESTINAL Hx Diverticulitis: Yes Hx Gastritis: Yes - GENITOURINARY/GYNECOLOGICAL Hx Genitourinary Disorders: Yes Hx Urinary Tract Infection: Yes Other/Comment: PT STATES HE HAS BROWN URINE AND SOME FECAL MATERIAL IN HIS URINE. - PSYCHIATRIC Hx Anxiety: Yes Hx Depression: Yes (pt. drinks and smokes for depression) Hx Substance Use: No - SURGICAL HISTORY Hx Surgeries: Yes Hx Amputation: Yes (LEFT BKA) Hx Angiogram: Yes Hx Cardiac Catheterization: Yes Hx Femoral-Popliteal Bypass Graft: Yes (X 3) Hx Vascular Surgery: Yes Other/Comment: Vascular bypass surgery femoral bilateral 2011,LT. BELOW KNEE AMPUTATION, right 5th toe amputation - ANESTHESIA Hx Anesthesia: Yes Hx Anesthesia Reactions: No Hx Malignant Hyperthermia: No Meds Allergies/Adverse Reactions: Allergies Allergy/AdvReac Type Severity Reaction Status Date / Time No Known Allergies Allergy Verified 03/27/17 14:16 - Medications Medications: Current Medications Acetaminophen (Tylenol 325mg Tab) 650 mg PO Q6 PRN PRN Reason: Pain, Mild (1-3) Carvedilol (Coreg) 25 mg PO BID [facility] Clopidogrel Bisulfate (Plavix) 75 mg PO DAILY [facility] Enoxaparin Sodium (Lovenox) 40 mg SC DAILY [facility] Gabapentin (Neurontin) 300 mg PO TID [facility] Piperacillin Sod/Tazobactam Sod (Zosyn 3.375 Gm Iv Premix) 3.375 gm in 50 mls @ 100 mls/hr IVPB Q6H [facility] Last Admin: 03/28/17 03:30 Dose: 100 mls/hr Vancomycin/Sodium Chloride (Vancomycin 1 Gm/Ns 200 Ml) 1 gm in 200 mls @ 133.333 mls/hr IVPB Q12H [facility] Stop: 04/02/17 07:46 Insulin Aspart (Novolog) 0 unit SC ACHS [facility] PRN Reason: Protocol Insulin Glargine (Lantus) 35 unit SC Q12 [facility] Multivitamins/Minerals (Therapeutic-M Tab) 1 tab PO DAILY [facility] Ondansetron HCl (Zofran Tab) 4 mg PO Q8H PRN PRN Reason: Nausea/Vomiting Oxycodone/Acetaminophen (Percocet 5/325 Mg Tab) 2 tab PO Q4H PRN PRN Reason: Pain, moderate (4-7) Stop: 03/31/17 02:39 Last Admin: 03/28/17 03:55 Dose: 2 tab Rosuvastatin Calcium (Crestor) 5 mg PO HS [facility] Sennosides (Senokot Tab) 8.6 mg PO DAILY [facility] Thiamine HCl (Vitamin B1 Tab) 100 mg PO DAILY [facility] Zolpidem Tartrate (Ambien) 5 mg PO HS PRN PRN Reason: Insomnia Physical Exam - Constitutional Appears: Non-toxic, Combative - Head Exam Head Exam: NORMAL INSPECTION - Eye Exam Eye Exam: Normal appearance - ENT Exam ENT Exam: Mucous Membranes Moist - Respiratory Exam Respiratory Exam: NORMAL BREATHING PATTERN. absent: Accessory Muscle Use, Respiratory Distress - Extremities Exam Additional comments: L AKA - Psychiatric Exam Psychiatric exam: Normal Affect, Normal Mood Results - Vital Signs Recent Vital Signs: Last Vital Signs Temp 98.4 F 03/28/17 00:00 Pulse 94 H 03/28/17 00:00 Resp 20 03/28/17 00:00 BP 121/80 03/28/17 00:00 Pulse Ox 95 03/28/17 00:07 - Labs Result Diagrams: 03/27/17 15:28 03/27/17 15:28 Labs: Laboratory Results - last 24 hr 03/27/17 03/27/17 15:28 15:28 WBC 10.7 RBC 4.06 L Hgb 13.8 Hct 39.6 MCV 97.7 H D MCH 34.1 H MCHC 34.9 RDW 14.3 Plt Count 116 L D MPV 9.0 Neut % (Auto) 72.6 Lymph % (Auto) 16.5 L [place] % (Auto) 7.6 Eos % (Auto) 2.6 Baso % (Auto) 0.7 Neut # (Auto) 7.7 H Lymph # (Auto) 1.8 [place] # (Auto) 0.8 Eos # (Auto) 0.3 Baso # (Auto) 0.1 Differential Comment Sodium 132 Potassium 3.4 L Chloride 94 L Carbon Dioxide 25 Anion Gap 16 BUN 5 L Creatinine 0.5 L Est GFR ( Amer) > 60 Est GFR (Non-Af Amer) > 60 Random Glucose 138 H Calcium 8.3 L Total Bilirubin 0.4 AST 26 ALT 8 L D Alkaline Phosphatase 117 Total Protein 7.7 Albumin 3.5 D Globulin 4.2 H Albumin/Globulin Ratio 0.8 L - Imaging and Cardiology Foot x-ray Status: Image reviewed by me, Report reviewed by me Assessment & Plan - Assessment and Plan (Free Text) Assessment: 51 y/o M w/ PMHx of PAD presenting w/ worsening R foot gangrene - Foot Xray neg for osteomyelitis - IV Abx - HHD/CCD - pain management - f/u Podiatry recs - LE duplex vs CTA to assess patency of SFA stent Further recs per Dr. Pradeep Blum DO PGY2
[2017-03-28] MEDS: Vancomycin 1 gm/NS 200 ml 1 GM/200 ML BAG IVPB SCH ×2 (07:26→19:04)
[2017-03-28] MEDS: (Novolog) Insulin Aspart, Recombinant 100 u/ml 10 ml vial SC SCH ×4 (08:10→22:00)
--- NOTE | 2017-03-28 08:38 | CP.PCM.PN ---
Subjective - Date & Time of Evaluation Date of Evaluation: 03/28/17 Time of Evaluation: 19:00 - Subjective Subjective: PT SEEN AND EXAMINED, RIGHT FOOT WOUND IS GETTING WORSE, DARKENING SKIN PURULENT DISCHARHGE PENDING PODIATRY EVAL Objective - Vital Signs/Intake and Output Vital Signs (last 24 hours): Temp Pulse Resp BP Pulse Ox 98.4 F 94 H 20 121/80 95 03/28/17 00:00 03/28/17 00:00 03/28/17 00:00 03/28/17 00:00 03/28/17 00:07 Intake and Output: 03/28/17 03/28/17 06:59 18:59 Intake Total 410 Output Total 300 Balance 110 - Medications Medications: Current Medications Acetaminophen (Tylenol 325mg Tab) 650 mg PO Q6 PRN PRN Reason: Pain, Mild (1-3) Carvedilol (Coreg) 25 mg PO BID [facility] Clopidogrel Bisulfate (Plavix) 75 mg PO DAILY [facility] Enoxaparin Sodium (Lovenox) 40 mg SC DAILY [facility] Gabapentin (Neurontin) 300 mg PO TID [facility] Piperacillin Sod/Tazobactam Sod (Zosyn 3.375 Gm Iv Premix) 3.375 gm in 50 mls @ 100 mls/hr IVPB Q6H [facility] Last Admin: 03/28/17 03:30 Dose: 100 mls/hr Vancomycin/Sodium Chloride (Vancomycin 1 Gm/Ns 200 Ml) 1 gm in 200 mls @ 133.333 mls/hr IVPB Q12H [facility] Stop: 04/02/17 07:46 Last Admin: 03/28/17 07:26 Dose: 133.333 mls/hr Insulin Aspart (Novolog) 0 unit SC ACHS [facility] PRN Reason: Protocol Last Admin: 03/28/17 08:10 Dose: Not Given Insulin Glargine (Lantus) 35 unit SC Q12 [facility] Multivitamins/Minerals (Therapeutic-M Tab) 1 tab PO DAILY [facility] Ondansetron HCl (Zofran Tab) 4 mg PO Q8H PRN PRN Reason: Nausea/Vomiting Oxycodone/Acetaminophen (Percocet 5/325 Mg Tab) 2 tab PO Q4H PRN PRN Reason: Pain, moderate (4-7) Stop: 03/31/17 02:39 Last Admin: 03/28/17 08:32 Dose: 2 tab Rosuvastatin Calcium (Crestor) 5 mg PO HS [facility] Sennosides (Senokot Tab) 8.6 mg PO DAILY [facility] Thiamine HCl (Vitamin B1 Tab) 100 mg PO DAILY [facility] Zolpidem Tartrate (Ambien) 5 mg PO HS PRN PRN Reason: Insomnia - Labs Labs: 03/27/17 15:28 03/27/17 15:28 - Constitutional Appears: No Acute Distress - Head Exam Head Exam: ATRAUMATIC, NORMAL INSPECTION, NORMOCEPHALIC - Eye Exam Eye Exam: EOMI, Normal appearance, PERRL Pupil Exam: NORMAL ACCOMODATION, PERRL - Respiratory Exam Respiratory Exam: Clear to Ausculation Bilateral, NORMAL BREATHING PATTERN - Cardiovascular Exam Cardiovascular Exam: REGULAR RHYTHM, +S1, +S2. absent: Murmur - GI/Abdominal Exam GI & Abdominal Exam: Soft, Normal Bowel Sounds. absent: Tenderness - Rectal Exam Rectal Exam: Deferred Assessment and Plan (1) Diabetic foot infection Status: Acute (2) Gangrene of right foot Status: Acute (3) Above knee amputation of left lower extremity Status: Acute (4) HTN (hypertension) Status: Acute (5) COPD (chronic obstructive pulmonary disease) Status: Chronic (6) Diabetes mellitus Status: Chronic (7) PAD (peripheral artery disease) Status: Chronic
[2017-03-28] MEDS ORDERED: Iodixanol 320 mg/ml 150 ml Bottle IV ONE (09:28)
[2017-03-28] MEDS ORDERED: (Lantus) Insulin Glargine, Recombinant SC SCH (10:00)
[2017-03-28] MEDS ORDERED: Home Med 1 UNIT (Vancomycin 1 Gm [Vancomycin 1gm In Normal Saline Addvantage] 1 GM) IVPB SCH (10:00)
[2017-03-28] MEDS: Enoxaparin 40 mg Syringe SC SCH (10:55)
[2017-03-28] MEDS: Multivitamin With Minerals Tab PO SCH (10:57)
[2017-03-28] MEDS: (Lantus) Insulin Glargine, Recombinant SC SCH ×3 (10:57→22:00)
[2017-03-28] MEDS: Piperacillin/Tazobact 3.375 GM in Sodium Chloride 0.9% 100 ML IVPB SCH ×2 (11:16→17:20)
--- NOTE | 2017-03-28 14:20 | CT ---
PROCEDURE: CT Angiography Abdomen, Pelvis and Lower Extremity with Contrast HISTORY: R foot gangrene COMPARISON: CT ANGIOGRAM 01/15/2017 TECHNIQUE: Technique: CT angiography of the abdomen, pelvis and bilateral lower extremities performed in the arterial phase of enhancement. Coronal and sagittal reformats, and well as rotating MIP images of the vessels generated at the workstation. Intravenous contrast dose: 150 milliliters Visipaque 320 Radiation dose: Total exam DLP = 1806.48 MGy-cm. This CT exam was performed using one or more of the following dose reduction techniques: Automated exposure control, adjustment of the mA and/or kV according to patient size, and/or use of iterative reconstruction technique. FINDINGS: CT ANGIOGRAPHY: ABDOMINAL AORTA:: Severe calcific plaque in the infrarenal aorta measuring 17 millimeters. MAJOR AORTIC BRANCHES: Celiac [place]: Unremarkable. Superior mesenteric artery: Unremarkable. Inferior mesenteric artery: Unremarkable. Renal arteries: Unremarkable. PELVIC ARTERIES: Right Common Iliac: Moderate calcific plaque with mild stenosis. Right External Iliac: Erect stenosis of the proximal external iliac artery. Moderate calcific plaque. Right Internal Iliac: RO stenosis of internal iliac artery. Left Common Iliac: Severely calcified and has mild stenosis. Left External Iliac: Occluded. Left Internal Iliac: Moderate calcific plaque but otherwise unremarkable. RIGHT LOWER EXTREMITY ARTERIES: Fem-fem bypass graft is occluded. This is unchanged from previous study. Right Common Femoral: Is moderate stenosis of the common femoral artery in the mid segment. Right Superficial Femoral: There is no occlusion of the superficial femoral artery with brief reconstitution of the distal SFA, there is mild to severe calcific plaque throughout the SFA. Right Profunda Femoris: Unremarkable. Right Popliteal:There is mild to severe stenosis of the popliteal artery along with moderate calcific plaque. Popliteal artery is patent and fills via collaterals. Right Anterior Tibial: Heavily calcified which limits evaluation. Believed to be patent. Right Tibioperoneal Trunk: As via collateral. Mild stenosis. Right Posterior Tibial: Heavily calcified and is occluded. Right Peroneal: Flow seen within the peroneal artery which is very small in caliber. Right dorsalis pedis : Unremarkable. LEFT LOWER EXTREMITY ARTERIES: Left Common Femoral: A very short segment fills via collateral and is otherwise occluded. Left Superficial Femoral: Previously placed stent is occluded. Left Profunda Femoris: A calcified and has flow. Above knee amputation. NON-ANGIOGRAPHIC ASPECT OF THE EXAM: LOWER THORAX: Unremarkable. LIVER: Unremarkable. No gross lesion or ductal dilatation. GALLBLADDER AND BILE DUCTS: Unremarkable. PANCREAS: Unremarkable. No gross lesion or ductal dilatation. SPLEEN: Unremarkable. ADRENALS: Unremarkable. No mass. KIDNEYS AND URETERS: Unremarkable. No hydronephrosis. No solid mass. STOMACH AND BOWEL: Unremarkable. No obstruction. No gross mural thickening. APPENDIX: Normal appendix. PERITONEUM: Unremarkable. No free fluid. No free air. LYMPH NODES: Unremarkable. No enlarged lymph nodes. BLADDER: Unremarkable. REPRODUCTIVE: Unremarkable. BONES: No acute fracture. OTHER FINDINGS: None. IMPRESSION: CT ANGIOGRAM ABDOMEN/PELVIS: 1. Unchanged CT angiogram from previous study. The infrarenal aorta is heavily calcified measures 17 millimeters. 2. Both right and left common iliac artery have mildly calcified. The right common iliac is mild stenosis. The right external iliac artery is moderately calcified and has more moderate stenosis in the proximal segment. RIGHT LOWER EXTREMITY CT ANGIOGRAM: 1. There is mild to severe stenosis of the common femoral artery. 2. The superficial femoral Artery is now occluded. 3. There is distal reconstitution of the very distal SFA and also there is flow within the popliteal artery. Popliteal artery is heavily calcified and has long segment diffuse moderate stenosis. 4. Runoff shows a patent peroneal artery. Anterior tibial artery is heavily calcified which limits evaluation. The anterior tibial artery is believed, however, to be patent. Posterior tibial is occluded. LEFT LOWER EXTREMITY CT ANGIOGRAM: 1. Above knee amputation 2. Near complete occlusion of the common femoral artery. There is some flow seen within the profunda femoral artery.
--- NOTE | 2017-03-28 15:25 | CP.PCM.CON ---
History of Present Illness - History of Present Illness History of Present Illness: Podiatry Progress Note - Dr. Malik 51 year old male was seen at bedside concerning right foot dry gangrene. Pt was seen by attending, Dr. Malik, in [facility] wound care center yesterday who referred him to hospital concerning prognosis of right foot. Pt is 2 months status-post right 5th digit amputation (DOS 01/23/17). Pt reports intermittent pain in right foot, well controlled by pain medications. He denies any acute overnight events. He denies any recent n/v/f/c/sob/cp. PMHx: Anxiety, asthma/COPD, DM, HTN, HLD Allergies: NKDA PSHx: R SFA stenting (01/2017)Left AKA (07/2015), Ex Lap LAR, bowel resection, repair of colovesicular fistula (11/2015), [place] [facility] [place]: smokes 1-1.5ppd x40yrs, 1 pint of vodka per day, occasional marijuana use FHx: noncontributory Review of Systems - Review of Systems All systems: reviewed and no additional remarkable complaints except Past Patient History - Infectious Disease Hx of Infectious Diseases: None - Past Medical History & Family History Past Medical History?: Yes - Past Social History Smoking Status: Former Smoker - CARDIAC Hx Hypercholesterolemia: Yes Hx Hypertension: Yes - PULMONARY Hx Asthma: Yes Hx Chronic Obstructive Pulmonary Disease (COPD): Yes - ENDOCRINE/METABOLIC Hx Endocrine Disorders: Yes Hx Diabetes Mellitus Type 1: Yes - INTEGUMENTARY Hx Dermatological Problems: Yes Other/Comment: PT HAS BROWN SPOTS ON ARMS AND BACK 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 - MUSCULOSKELETAL/RHEUMATOLOGICAL Hx Falls: No - GASTROINTESTINAL Hx Diverticulitis: Yes Hx Gastritis: Yes - GENITOURINARY/GYNECOLOGICAL Hx Genitourinary Disorders: Yes Hx Urinary Tract Infection: Yes Other/Comment: PT STATES HE HAS BROWN URINE AND SOME FECAL MATERIAL IN HIS URINE. - PSYCHIATRIC Hx Substance Use: No - SURGICAL HISTORY Hx Surgeries: Yes Hx Amputation: Yes (LEFT BKA) Hx Angiogram: Yes Hx Cardiac Catheterization: Yes Hx Femoral-Popliteal Bypass Graft: Yes (X 3) Hx Vascular Surgery: Yes Other/Comment: Vascular bypass surgery femoral bilateral 2011,LT. BELOW KNEE AMPUTATION, right 5th toe amputation - ANESTHESIA Hx Anesthesia: Yes Hx Anesthesia Reactions: No Hx Malignant Hyperthermia: No Meds Allergies/Adverse Reactions: Allergies Allergy/AdvReac Type Severity Reaction Status Date / Time No Known Allergies Allergy Verified 03/27/17 14:16 - Medications Medications: Current Medications Acetaminophen (Tylenol 325mg Tab) 650 mg PO Q6 PRN PRN Reason: Pain, Mild (1-3) Carvedilol (Coreg) 25 mg PO BID [facility] Last Admin: 03/28/17 10:50 Dose: 25 mg Clopidogrel Bisulfate (Plavix) 75 mg PO DAILY [facility] Last Admin: 03/28/17 10:57 Dose: 75 mg Enoxaparin Sodium (Lovenox) 40 mg SC DAILY [facility] Last Admin: 03/28/17 10:55 Dose: 40 mg Gabapentin (Neurontin) 300 mg PO TID [facility] Last Admin: 03/28/17 14:23 Dose: 300 mg Vancomycin/Sodium Chloride (Vancomycin 1 Gm/Ns 200 Ml) 1 gm in 200 mls @ 133.333 mls/hr IVPB Q12H [facility] Stop: 04/02/17 07:46 Last Admin: 03/28/17 07:26 Dose: 133.333 mls/hr Piperacillin Sod/Tazobactam Sod (Zosyn 3.375 Gm Iv Premix) 3.375 gm in 50 mls @ 100 mls/hr IVPB Q6H [facility] Insulin Aspart (Novolog) 0 unit SC ACHS [facility] PRN Reason: Protocol Last Admin: 03/28/17 11:34 Dose: Not Given Insulin Glargine (Lantus) 30 unit SC Q12 [facility] Last Admin: 03/28/17 11:02 Dose: Not Given Multivitamins/Minerals (Therapeutic-M Tab) 1 tab PO DAILY [facility] Last Admin: 03/28/17 10:57 Dose: 1 tab Ondansetron HCl (Zofran Tab) 4 mg PO Q8H PRN PRN Reason: Nausea/Vomiting Oxycodone/Acetaminophen (Percocet 5/325 Mg Tab) 2 tab PO Q4H PRN PRN Reason: Pain, moderate (4-7) Stop: 03/31/17 02:39 Last Admin: 03/28/17 12:38 Dose: 2 tab Rosuvastatin Calcium (Crestor) 5 mg PO [facility] Sennosides (Senokot Tab) 8.6 mg PO DAILY [facility] Last Admin: 03/28/17 10:56 Dose: 8.6 mg Thiamine HCl (Vitamin B1 Tab) 100 mg PO DAILY [facility] Last Admin: 03/28/17 10:57 Dose: 100 mg Zolpidem Tartrate (Ambien) 5 mg PO HS PRN PRN Reason: Insomnia Physical Exam - Constitutional Appears: Well, Non-toxic, No Acute Distress - Extremities Exam Additional comments: Right lower extremity focused. Left leg above knee amputation noted. Dressings are clean, dry, and intact. VASC: DP and PT pulses non-palpable. DP pulses was faintly monophasic upon doppler examination. Temperature gradient runs cool to cool from proximal leg to dista foot, outside acceptable limits. Absent capillary digital refill time to 4th digit, 3 digits capillary refill time <3 seconds. NEURO: Protective sensation grossly diminished. DERM: Full thickness ulceration measuring 6 x 2.8 cm with 85% necrotic 15% fibrotic wound base. No malodor, no drainage, no acute signs of infection noted. 4th digit presents with duskiness. Ortho: No tenderness to palpation noted. Pedal muscle strength graded 5/5 in all 4 major muscle groups. - Neurological Exam Neurological exam: Alert, Oriented x3 - Psychiatric Exam Psychiatric exam: Normal Affect, Normal Mood Results - Vital Signs Recent Vital Signs: Last Vital Signs Temp 98.4 F 03/28/17 00:00 Pulse 94 H 03/28/17 00:00 Resp 20 03/28/17 00:00 BP 108/74 03/28/17 10:50 Pulse Ox 95 03/28/17 00:07 - Labs Result Diagrams: 03/27/17 15:28 03/27/17 15:28 Labs: Laboratory Results - last 24 hr 03/27/17 03/27/17 03/28/17 15:28 15:28 07:29 WBC 10.7 RBC 4.06 L Hgb 13.8 Hct 39.6 MCV 97.7 H D MCH 34.1 H MCHC 34.9 RDW 14.3 Plt Count 116 L D MPV 9.0 Neut % (Auto) 72.6 Lymph % (Auto) 16.5 L [place] % (Auto) 7.6 Eos % (Auto) 2.6 Baso % (Auto) 0.7 Neut # (Auto) 7.7 H Lymph # (Auto) 1.8 [place] # (Auto) 0.8 Eos # (Auto) 0.3 Baso # (Auto) 0.1 Differential Comment Sodium 132 Potassium 3.4 L Chloride 94 L Carbon Dioxide 25 Anion Gap 16 BUN 5 L Creatinine 0.5 L Est GFR ( Amer) > 60 Est GFR (Non-Af Amer) > 60 POC Glucose (mg/dL) 108 Random Glucose 138 H Calcium 8.3 L Total Bilirubin 0.4 AST 26 ALT 8 L D Alkaline Phosphatase 117 Total Protein 7.7 Albumin 3.5 D Globulin 4.2 H Albumin/Globulin Ratio 0.8 L 03/28/17 11:17 WBC RBC Hgb Hct MCV MCH MCHC RDW Plt Count MPV Neut % (Auto) Lymph % (Auto) [place] % (Auto) Eos % (Auto) Baso % (Auto) Neut # (Auto) Lymph # (Auto) [place] # (Auto) Eos # (Auto) Baso # (Auto) Differential Comment Sodium Potassium Chloride Carbon Dioxide Anion Gap BUN Creatinine Est GFR ( Amer) Est GFR (Non-Af Amer) POC Glucose (mg/dL) 133 H Random Glucose Calcium Total Bilirubin AST ALT Alkaline Phosphatase Total Protein Albumin Globulin Albumin/Globulin Ratio Assessment & Plan - Assessment and Plan (Free Text) Assessment: 51 year old male with full thickness lateral foot ulceration secondary to PAD. Plan: Patient was evaluated. Discussed in detail with attending Dr. Malik. Chart, labs, and vitals reviewed - afebrile, absent leukocytosis. Right foot ulcer site cleansed with sterile saline, dressed with betadine and DSD. Continue pain medications Continue IV abx. X-rays reviewed. Angiogram results-pending. Vascular surgery, Dr. Fernández, evaluation and recommendations appreciated.
[2017-03-28] MEDS: Piperacill/Tazo 3.375gm in Dex 3.375 GM/50 ML BAG IVPB SCH ×2 (17:22→23:10)
[2017-03-29] MEDS: Piperacill/Tazo 3.375gm in Dex 3.375 GM/50 ML BAG IVPB SCH ×4 (05:35→22:43)
[2017-03-29] MEDS: Oxycodone/Acetaminophen 5/325 mg Tab PO PRN ×5 (05:42→22:57)
[2017-03-29] MEDS: Vancomycin 1 gm/NS 200 ml 1 GM/200 ML BAG IVPB SCH ×2 (06:57→18:50)
[2017-03-29] MEDS: (Novolog) Insulin Aspart, Recombinant 100 u/ml 10 ml vial SC SCH ×4 (08:13→21:48)
--- NOTE | 2017-03-29 09:05 | CP.PCM.PN ---
Subjective - Date & Time of Evaluation Date of Evaluation: 03/29/17 Time of Evaluation: 07:20 - Subjective Subjective: Vascular Surgery- Dr. Fernández Patient seen and examined at bedside this AM. no acute events overnight. having continued RLE pain. Dressing C/D/I no strike through. Denies f/c cp/sob n/v/d palpable popliteal pulse Objective - Vital Signs/Intake and Output Vital Signs (last 24 hours): Temp Pulse Resp BP Pulse Ox 99.2 F 94 H 20 109/69 95 03/29/17 07:59 03/29/17 07:59 03/29/17 07:59 03/29/17 07:59 03/29/17 07:59 Intake and Output: 03/29/17 03/29/17 06:59 18:59 Intake Total 290 Output Total 550 Balance -260 - Medications Medications: Current Medications Acetaminophen (Tylenol 325mg Tab) 650 mg PO Q6 PRN PRN Reason: Pain, Mild (1-3) Carvedilol (Coreg) 25 mg PO BID [facility] 234 BEDS AT [facility] Last Admin: 03/28/17 17:23 Dose: 25 mg Clopidogrel Bisulfate (Plavix) 75 mg PO DAILY [facility]S [facility]CLUDE 234 BEDS AT THE [facility] Last Admin: 03/28/17 10:57 Dose: 75 mg Enoxaparin Sodium (Lovenox) 40 mg SC DAILY [facility]CLUDE 234 BEDS AT THE [facility] Last Admin: 03/28/17 10:55 Dose: 40 mg Gabapentin (Neurontin) 300 mg PO TID [facility]CLUDE 234 BEDS AT THE [facility] Last Admin: 03/28/17 17:23 Dose: 300 mg Vancomycin/Sodium Chloride (Vancomycin 1 Gm/Ns 200 Ml) 1 gm in 200 mls @ 133.333 mls/hr IVPB Q12H [facility]S [facility]CLUDE 234 BEDS AT THE [facility] Stop: 04/02/17 07:46 Last Admin: 03/29/17 06:57 Dose: 133.333 mls/hr Piperacillin Sod/Tazobactam Sod (Zosyn 3.375 Gm Iv Premix) 3.375 gm in 50 mls @ 100 mls/hr IVPB Q6H [facility]CLUDE 234 BEDS AT THE [facility] Last Admin: 03/29/17 05:35 Dose: 100 mls/hr Insulin Aspart (Novolog) 0 unit SC ACHS [facility] PRN Reason: Protocol Last Admin: 03/29/17 08:13 Dose: Not Given Insulin Glargine (Lantus) 30 unit SC Q12 [facility]CLUDE 234 BEDS AT THE [facility] Last Admin: 03/28/17 22:00 Dose: Not Given Losartan Potassium (Cozaar) 25 mg PO DAILY [facility]CLUDE 234 BEDS AT THE [facility] Multivitamins/Minerals (Therapeutic-M Tab) 1 tab PO DAILY [facility] 234 BEDS AT THE [facility] Last Admin: 03/28/17 10:57 Dose: 1 tab Ondansetron HCl (Zofran Tab) 4 mg PO Q8H PRN PRN Reason: Nausea/Vomiting Oxycodone/Acetaminophen (Percocet 5/325 Mg Tab) 2 tab PO Q4H PRN PRN Reason: Pain, moderate (4-7) Stop: 03/31/17 02:39 Last Admin: 03/29/17 05:42 Dose: 2 tab Rosuvastatin Calcium (Crestor) 5 mg PO HS [facility]S [facility]CLUDE 234 BEDS AT THE [facility] Last Admin: 03/28/17 21:22 Dose: 5 mg Sennosides (Senokot Tab) 8.6 mg PO DAILY [facility]CLUDE 234 BEDS AT THE [facility] Last Admin: 03/28/17 10:56 Dose: 8.6 mg Thiamine HCl (Vitamin B1 Tab) 100 mg PO DAILY [facility]CLUDE 234 BEDS AT THE [facility] Last Admin: 03/28/17 10:57 Dose: 100 mg Zolpidem Tartrate (Ambien) 5 mg PO HS PRN PRN Reason: Insomnia Last Admin: 03/28/17 23:08 Dose: 5 mg - Labs Labs: 03/27/17 15:28 03/27/17 15:28 - Constitutional Appears: Non-toxic, No Acute Distress - Head Exam Head Exam: ATRAUMATIC - Eye Exam Eye Exam: EOMI. absent: Scleral icterus - Respiratory Exam Respiratory Exam: NORMAL BREATHING PATTERN. absent: Accessory Muscle Use, Respiratory Distress - Cardiovascular Exam Cardiovascular Exam: +S1, +S2. absent: Bradycardia, Tachycardia - GI/Abdominal Exam GI & Abdominal Exam: Soft. absent: Distended, Firm, Guarding, Rigid, Tenderness - Extremities Exam Extremities Exam: absent: Calf Tenderness Additional comments: palpable R popliteal L.BKA RLE dressing C/d/I - Neurological Exam Neurological Exam: Alert, Awake, Oriented x3 Assessment and Plan - Assessment and Plan (Free Text) Assessment: 51 y/o M w/ PMHx of PAD presenting w/ worsening R foot gangrene CTA: stenosis around 2[address] [employer], SFA occlusion w/ distal collaterals Plan: - IV Abx - HHD/CCD - pain management - f/u Podiatry recs - further recs per Dr. Pradeep Phillips PGY1
[2017-03-29] MEDS: Enoxaparin 40 mg Syringe SC SCH (10:13)
[2017-03-29] MEDS: Multivitamin With Minerals Tab PO SCH (10:13)
[2017-03-29] MEDS: (Lantus) Insulin Glargine, Recombinant SC SCH ×2 (10:13→21:48)
--- NOTE | 2017-03-29 13:09 | CP.PCM.PN ---
Subjective - Date & Time of Evaluation Date of Evaluation: 03/29/17 Time of Evaluation: 10:15 - Subjective Subjective: Podiatry Progress Note - Dr. Malik 51 year old male was seen at bedside concerning right foot dry gangrene. Patient appears to be resting comfortably in his bed and is AAOx3. Patient is in NAD and denies of any acute overnight events. Patient denies of having any F/ N/V/C/SOB/CP. Patient denies of any other pedal complains at this time. Objective - Vital Signs/Intake and Output Vital Signs (last 24 hours): Temp Pulse Resp BP Pulse Ox 99.2 F 94 H 20 109/69 95 03/29/17 07:59 03/29/17 07:59 03/29/17 07:59 03/29/17 10:12 03/29/17 07:59 Intake and Output: 03/29/17 03/29/17 06:59 18:59 Intake Total 290 Output Total 550 Balance -260 - Medications Medications: Current Medications Acetaminophen (Tylenol 325mg Tab) 650 mg PO Q6 PRN PRN Reason: Pain, Mild (1-3) Carvedilol (Coreg) 25 mg PO BID [facility] Last Admin: 03/29/17 10:12 Dose: 25 mg Clopidogrel Bisulfate (Plavix) 75 mg PO DAILY [facility] Last Admin: 03/29/17 10:13 Dose: 75 mg Enoxaparin Sodium (Lovenox) 40 mg SC DAILY [facility] Last Admin: 03/29/17 10:13 Dose: 40 mg Gabapentin (Neurontin) 300 mg PO TID [facility] Last Admin: 03/29/17 10:13 Dose: 300 mg Vancomycin/Sodium Chloride (Vancomycin 1 Gm/Ns 200 Ml) 1 gm in 200 mls @ 133.333 mls/hr IVPB Q12H [facility] Stop: 04/02/17 07:46 Last Admin: 03/29/17 06:57 Dose: 133.333 mls/hr Piperacillin Sod/Tazobactam Sod (Zosyn 3.375 Gm Iv Premix) 3.375 gm in 50 mls @ 100 mls/hr IVPB Q6H [facility] Last Admin: 03/29/17 10:21 Dose: 100 mls/hr Insulin Aspart (Novolog) 0 unit SC ACHS [facility] PRN Reason: Protocol Last Admin: 03/29/17 08:13 Dose: Not Given Insulin Glargine (Lantus) 30 unit SC Q12 [facility] Last Admin: 03/29/17 10:13 Dose: Not Given Losartan Potassium (Cozaar) 25 mg PO DAILY [facility] Last Admin: 03/29/17 10:13 Dose: 25 mg Multivitamins/Minerals (Therapeutic-M Tab) 1 tab PO DAILY [facility] Last Admin: 03/29/17 10:13 Dose: 1 tab Ondansetron HCl (Zofran Tab) 4 mg PO Q8H PRN PRN Reason: Nausea/Vomiting Oxycodone/Acetaminophen (Percocet 5/325 Mg Tab) 2 tab PO Q4H PRN PRN Reason: Pain, moderate (4-7) Stop: 03/31/17 02:39 Last Admin: 03/29/17 10:14 Dose: 2 tab Rosuvastatin Calcium (Crestor) 5 mg PO HS [facility] Last Admin: 03/28/17 21:22 Dose: 5 mg Sennosides (Senokot Tab) 8.6 mg PO DAILY [facility] Last Admin: 03/29/17 10:13 Dose: 8.6 mg Thiamine HCl (Vitamin B1 Tab) 100 mg PO DAILY [facility] Last Admin: 03/29/17 10:13 Dose: 100 mg Zolpidem Tartrate (Ambien) 5 mg PO HS PRN PRN Reason: Insomnia Last Admin: 03/28/17 23:08 Dose: 5 mg - Labs Labs: 03/27/17 15:28 03/27/17 15:28 - Constitutional Appears: Well, Non-toxic, No Acute Distress - Extremities Exam Additional comments: Right lower extremity focused. Left leg above knee amputation noted. Dressings are clean, dry, and intact. VASC: DP and PT pulses non-palpable. DP pulses was faintly monophasic upon doppler examination. Temperature gradient runs cool to cool from proximal leg to dista foot, outside acceptable limits. Absent capillary digital refill time to 4th digit, 3 digits capillary refill time <3 seconds. NEURO: Protective sensation grossly diminished. DERM: Full thickness ulceration measuring 6 x 2.8 cm with 85% necrotic 15% fibrotic wound base. No malodor, no drainage, no acute signs of infection noted. 4th digit presents with duskiness. Ortho: No tenderness to palpation noted. Pedal muscle strength graded 5/5 in all 4 major muscle groups. - Neurological Exam Neurological Exam: Alert, Awake, Oriented x3 - Psychiatric Exam Psychiatric exam: Normal Affect, Normal Mood Assessment and Plan - Assessment and Plan (Free Text) Assessment: 51 year old male with full thickness lateral foot ulceration secondary to PAD. Plan: Patient was evaluated at bedside with attending Dr. Malik. Chart, labs, and vitals reviewed - afebrile, absent leukocytosis. Right foot ulcer site cleansed with sterile saline, dressed with betadine and DSD. Continue pain medications Continue IV abx. X-rays reviewed. Angiogram results - severe stenosis of common femoral artery; heavily calcified popliteal artery with diffuse moderate stenosis, Anterior tibial artery heavily calcified , PT artery is occluded, Peroneal artery shoes runoff Vascular surgery, Dr. Fernández, evaluation and recommendations appreciated Podiatry will follow patient while in-house
[2017-03-29] MEDS: Ammonium Lactate 12% Lotion (225 g) EXT SCH (19:06)
--- NOTE | 2017-03-29 21:38 | CP.PCM.PN ---
Subjective - Date & Time of Evaluation Date of Evaluation: 03/29/17 Time of Evaluation: 10:00 - Subjective Subjective: Patient seen and examined at bedside this AM. no acute events overnight. having continued RLE pain., RIGHT FOOT WOUND IS GETTING WORSE, HE MIGHT NEED BKA Dressing C/D/I no strike through. Denies f/c cp/sob n/v/d palpable popliteal pulse Objective - Vital Signs/Intake and Output Vital Signs (last 24 hours): Temp Pulse Resp BP Pulse Ox 98.2 F 71 20 135/74 99 03/29/17 15:30 03/29/17 15:30 03/29/17 15:30 03/29/17 17:43 03/29/17 15:30 Intake and Output: 03/29/17 03/30/17 18:59 06:59 Intake Total 750 Balance 750 - Medications Medications: Current Medications Acetaminophen (Tylenol 325mg Tab) 650 mg PO Q6 PRN PRN Reason: Pain, Mild (1-3) Last Admin: 03/29/17 13:32 Dose: 650 mg Carvedilol (Coreg) 25 mg PO BID [facility] Last Admin: 03/29/17 17:43 Dose: 25 mg Clopidogrel Bisulfate (Plavix) 75 mg PO DAILY [facility] Last Admin: 03/29/17 10:13 Dose: 75 mg Enoxaparin Sodium (Lovenox) 40 mg SC DAILY [facility] Last Admin: 03/29/17 10:13 Dose: 40 mg Gabapentin (Neurontin) 300 mg PO TID [facility] Last Admin: 03/29/17 17:43 Dose: 300 mg Vancomycin/Sodium Chloride (Vancomycin 1 Gm/Ns 200 Ml) 1 gm in 200 mls @ 133.333 mls/hr IVPB Q12H [facility] Stop: 04/02/17 07:46 Last Admin: 03/29/17 18:50 Dose: 133.333 mls/hr Piperacillin Sod/Tazobactam Sod (Zosyn 3.375 Gm Iv Premix) 3.375 gm in 50 mls @ 100 mls/hr IVPB Q6H [facility] Last Admin: 03/29/17 17:30 Dose: 100 mls/hr Insulin Aspart (Novolog) 0 unit SC ACHS [facility] PRN Reason: Protocol Last Admin: 03/29/17 17:44 Dose: Not Given Insulin Glargine (Lantus) 30 unit SC Q12 [facility] Last Admin: 03/29/17 10:13 Dose: Not Given Lactic Acid (Lac-Hydrin 12% Lotion (225 G)) 4 gm EXT BID [facility] Last Admin: 03/29/17 19:06 Dose: 1 applic Losartan Potassium (Cozaar) 25 mg PO DAILY [facility] Last Admin: 03/29/17 10:13 Dose: 25 mg Multivitamins/Minerals (Therapeutic-M Tab) 1 tab PO DAILY [facility] Last Admin: 03/29/17 10:13 Dose: 1 tab Ondansetron HCl (Zofran Tab) 4 mg PO Q8H PRN PRN Reason: Nausea/Vomiting Oxycodone/Acetaminophen (Percocet 5/325 Mg Tab) 2 tab PO Q4H PRN PRN Reason: Pain, moderate (4-7) Stop: 03/31/17 02:39 Last Admin: 03/29/17 19:00 Dose: 2 tab Rosuvastatin Calcium (Crestor) 5 mg PO HS [facility] Last Admin: 03/28/17 21:22 Dose: 5 mg Sennosides (Senokot Tab) 8.6 mg PO DAILY [facility] Last Admin: 03/29/17 10:13 Dose: 8.6 mg Thiamine HCl (Vitamin B1 Tab) 100 mg PO DAILY [facility] Last Admin: 03/29/17 10:13 Dose: 100 mg Zolpidem Tartrate (Ambien) 5 mg PO HS PRN PRN Reason: Insomnia Last Admin: 03/28/17 23:08 Dose: 5 mg - Labs Labs: 03/27/17 15:28 03/27/17 15:28 - Constitutional Appears: No Acute Distress - Head Exam Head Exam: ATRAUMATIC, NORMAL INSPECTION, NORMOCEPHALIC - Eye Exam Eye Exam: EOMI, Normal appearance, PERRL Pupil Exam: NORMAL ACCOMODATION, PERRL - Respiratory Exam Respiratory Exam: Clear to Ausculation Bilateral, NORMAL BREATHING PATTERN - Cardiovascular Exam Cardiovascular Exam: REGULAR RHYTHM, +S1, +S2. absent: Murmur - GI/Abdominal Exam GI & Abdominal Exam: Soft, Normal Bowel Sounds. absent: Tenderness - Rectal Exam Rectal Exam: Deferred Assessment and Plan (1) Diabetic foot infection Status: Acute (2) Gangrene of right foot Assessment & Plan: POSSIBLE BKA Status: Acute (3) Above knee amputation of left lower extremity Status: Acute (4) HTN (hypertension) Status: Acute (5) COPD (chronic obstructive pulmonary disease) Status: Chronic (6) Diabetes mellitus Status: Chronic (7) PAD (peripheral artery disease) Status: Chronic
[2017-03-30] MEDS: Piperacill/Tazo 3.375gm in Dex 3.375 GM/50 ML BAG IVPB SCH ×4 (04:30→22:23)
[2017-03-30] MEDS: Oxycodone/Acetaminophen 5/325 mg Tab PO PRN ×5 (04:30→21:43)
[2017-03-30 07:10] LABS: BASO # 0.1 K/uL (0.0-0.2); BASO % 1.3 % (0.0-2.0); EOS # 0.3 K/uL (0.0-0.7); EOS % 4.3 % (0.0-4.0); HEMOGLOBIN 13.2 g/dL (12.0-18.0); LYMPH % 12.5 % (20.0-40.0); MEAN CELL VOLUME 98.5 fL (80.0-94.0); MEAN CORPUSCULAR HEMOGLOBIN 33.7 pg (27.0-31.0); MEAN CORPUSCULAR HGB CONC 34.2 g/dL (33.0-37.0); MEAN PLATELET VOLUME 8.7 fL (7.2-11.7); MONO # 0.6 K/uL (0.0-0.8); MONO % 7.2 % (0.0-10.0); NEUT % 74.7 % (50.0-75.0); RBC 3.93 Mil/uL (4.40-5.90); RED CELL DISTRIBUTION WIDTH 14.4 % (11.5-14.5)
[2017-03-30] MEDS: (Novolog) Insulin Aspart, Recombinant 100 u/ml 10 ml vial SC SCH ×4 (07:43→21:45)
[2017-03-30 07:49] LABS: BLOOD UREA NITROGEN 4 mg/dL (9-20); CALCIUM 8.6 mg/dl (8.6-10.4); GFR AFRICAN-AMERICAN > 60; GFR NON-AFRICAN AMERICAN > 60
[2017-03-30] MEDS: Vancomycin 1 gm/NS 200 ml 1 GM/200 ML BAG IVPB SCH ×2 (08:36→19:00)
[2017-03-30] MEDS: Multivitamin With Minerals Tab PO SCH (10:07)
[2017-03-30] MEDS: Enoxaparin 40 mg Syringe SC SCH (10:07)
[2017-03-30] MEDS: Ammonium Lactate 12% Lotion (225 g) EXT SCH ×2 (10:08→21:22)
[2017-03-30] MEDS: (Lantus) Insulin Glargine, Recombinant SC SCH ×2 (10:08→21:44)
--- NOTE | 2017-03-30 10:30 | CP.PCM.PN ---
Subjective - Date & Time of Evaluation Date of Evaluation: 03/30/17 Time of Evaluation: 07:00 - Subjective Subjective: Vascular Surgery Dr. Fernández Pt S&E @bedside. NAEO. reports continued RLE pain and spreading numbness. Pt reports chronic foot wound spreading proximally toward heel. Pt denies F/C, N/V , D/C. tolerating diet. Objective - Vital Signs/Intake and Output Vital Signs (last 24 hours): Temp Pulse Resp BP Pulse Ox 98.5 F 80 20 123/83 100 03/30/17 08:12 03/30/17 08:12 03/30/17 08:12 03/30/17 10:06 03/30/17 08:12 Intake and Output: 03/30/17 03/30/17 06:59 18:59 Intake Total 450 Balance 450 - Medications Medications: Current Medications Acetaminophen (Tylenol 325mg Tab) 650 mg PO Q6 PRN PRN Reason: Pain, Mild (1-3) Last Admin: 03/30/17 00:45 Dose: 650 mg Carvedilol (Coreg) 25 mg PO BID [facility] Last Admin: 03/30/17 10:06 Dose: 25 mg Clopidogrel Bisulfate (Plavix) 75 mg PO DAILY [facility] Last Admin: 03/30/17 10:07 Dose: 75 mg Enoxaparin Sodium (Lovenox) 40 mg SC DAILY [facility] Last Admin: 03/30/17 10:07 Dose: 40 mg Gabapentin (Neurontin) 300 mg PO TID [facility] Last Admin: 03/30/17 10:06 Dose: 300 mg Vancomycin/Sodium Chloride (Vancomycin 1 Gm/Ns 200 Ml) 1 gm in 200 mls @ 133.333 mls/hr IVPB Q12H [facility] Stop: 04/02/17 07:46 Last Admin: 03/30/17 08:36 Dose: 133.333 mls/hr Piperacillin Sod/Tazobactam Sod (Zosyn 3.375 Gm Iv Premix) 3.375 gm in 50 mls @ 100 mls/hr IVPB Q6H [facility] Last Admin: 03/30/17 04:30 Dose: 100 mls/hr Insulin Aspart (Novolog) 0 unit SC ACHS [facility] PRN Reason: Protocol Last Admin: 03/30/17 07:43 Dose: Not Given Insulin Glargine (Lantus) 30 unit SC Q12 [facility] Last Admin: 03/30/17 10:08 Dose: Not Given Lactic Acid (Lac-Hydrin 12% Lotion (225 G)) 4 gm EXT BID [facility] Last Admin: 03/30/17 10:08 Dose: 1 applic Losartan Potassium (Cozaar) 25 mg PO DAILY [facility] Last Admin: 03/30/17 10:06 Dose: 25 mg Multivitamins/Minerals (Therapeutic-M Tab) 1 tab PO DAILY [facility] Last Admin: 03/30/17 10:07 Dose: 1 tab Ondansetron HCl (Zofran Tab) 4 mg PO Q8H PRN PRN Reason: Nausea/Vomiting Oxycodone/Acetaminophen (Percocet 5/325 Mg Tab) 2 tab PO Q4H PRN PRN Reason: Pain, moderate (4-7) Stop: 03/31/17 02:39 Last Admin: 03/30/17 08:40 Dose: 2 tab Rosuvastatin Calcium (Crestor) 5 mg PO HS [facility] Last Admin: 03/29/17 21:47 Dose: 5 mg Sennosides (Senokot Tab) 8.6 mg PO DAILY [facility] Last Admin: 03/30/17 10:07 Dose: 8.6 mg Thiamine HCl (Vitamin B1 Tab) 100 mg PO DAILY [facility] Last Admin: 03/30/17 10:06 Dose: 100 mg Zolpidem Tartrate (Ambien) 5 mg PO HS PRN PRN Reason: Insomnia Last Admin: 03/29/17 21:48 Dose: 5 mg - Labs Labs: 03/30/17 07:05 03/30/17 05:10 - Constitutional Appears: Non-toxic, No Acute Distress - Head Exam Head Exam: NORMAL INSPECTION - Eye Exam Eye Exam: Normal appearance - ENT Exam ENT Exam: Mucous Membranes Moist - Respiratory Exam Respiratory Exam: NORMAL BREATHING PATTERN. absent: Accessory Muscle Use, Respiratory Distress - GI/Abdominal Exam GI & Abdominal Exam: Soft. absent: Distended, Tenderness - Extremities Exam Additional comments: L AKA R foot dressing in place RLE 2+ pitting edema to mid-gould erythema, warmth - Neurological Exam Neurological Exam: Alert, Awake, Oriented x3 - Psychiatric Exam Psychiatric exam: Normal Affect, Normal Mood - Skin Skin Exam: Dry, Warm Assessment and Plan - Assessment and Plan (Free Text) Assessment: 52 y/o M w/ PAD and stenosis of R [employer] and occlusion of SFA stent - cont IV Abx - cont pain management - f/u Podiatry recs - AKA vs BKA to be determined Further recs per Dr. Pradeep Blum DO PGY2
--- NOTE | 2017-03-30 13:24 | CP.PCM.PN ---
Subjective - Date & Time of Evaluation Date of Evaluation: 03/30/17 Time of Evaluation: 10:10 - Subjective Subjective: Podiatry Progress Note - Dr. Malik 51 year old male was seen at bedside concerning right foot dry gangrene. Patient appears to be resting comfortably in his bed and is AAOx3. Patient is in NAD and denies of any acute overnight events. Patient denies of having any F/ N/V/C/SOB/CP. Patient denies of any other pedal complains at this time. Objective - Vital Signs/Intake and Output Vital Signs (last 24 hours): Temp Pulse Resp BP Pulse Ox 98.5 F 80 20 123/83 100 03/30/17 08:12 03/30/17 08:12 03/30/17 08:12 03/30/17 10:06 03/30/17 08:12 Intake and Output: 03/30/17 03/30/17 06:59 18:59 Intake Total 450 Balance 450 - Medications Medications: Current Medications Acetaminophen (Tylenol 325mg Tab) 650 mg PO Q6 PRN PRN Reason: Pain, Mild (1-3) Last Admin: 03/30/17 00:45 Dose: 650 mg Carvedilol (Coreg) 25 mg PO BID [facility] Last Admin: 03/30/17 10:06 Dose: 25 mg Clopidogrel Bisulfate (Plavix) 75 mg PO DAILY [facility] Last Admin: 03/30/17 10:07 Dose: 75 mg Enoxaparin Sodium (Lovenox) 40 mg SC DAILY [facility] Last Admin: 03/30/17 10:07 Dose: 40 mg Gabapentin (Neurontin) 300 mg PO TID [facility] Last Admin: 03/30/17 10:06 Dose: 300 mg Vancomycin/Sodium Chloride (Vancomycin 1 Gm/Ns 200 Ml) 1 gm in 200 mls @ 133.333 mls/hr IVPB Q12H [facility] Stop: 04/02/17 07:46 Last Admin: 03/30/17 08:36 Dose: 133.333 mls/hr Piperacillin Sod/Tazobactam Sod (Zosyn 3.375 Gm Iv Premix) 3.375 gm in 50 mls @ 100 mls/hr IVPB Q6H [facility] Last Admin: 03/30/17 10:42 Dose: 100 mls/hr Insulin Aspart (Novolog) 0 unit SC ACHS [facility] PRN Reason: Protocol Last Admin: 03/30/17 11:48 Dose: Not Given Insulin Glargine (Lantus) 30 unit SC Q12 [facility] Last Admin: 03/30/17 10:08 Dose: Not Given Lactic Acid (Lac-Hydrin 12% Lotion (225 G)) 4 gm EXT BID [facility] Last Admin: 03/30/17 10:08 Dose: 1 applic Losartan Potassium (Cozaar) 25 mg PO DAILY [facility] Last Admin: 03/30/17 10:06 Dose: 25 mg Multivitamins/Minerals (Therapeutic-M Tab) 1 tab PO DAILY [facility] Last Admin: 03/30/17 10:07 Dose: 1 tab Ondansetron HCl (Zofran Tab) 4 mg PO Q8H PRN PRN Reason: Nausea/Vomiting Oxycodone/Acetaminophen (Percocet 5/325 Mg Tab) 2 tab PO Q4H PRN PRN Reason: Pain, moderate (4-7) Stop: 03/31/17 02:39 Last Admin: 03/30/17 12:32 Dose: 2 tab Rosuvastatin Calcium (Crestor) 5 mg PO HS [facility] Last Admin: 03/29/17 21:47 Dose: 5 mg Sennosides (Senokot Tab) 8.6 mg PO DAILY [facility] Last Admin: 03/30/17 10:07 Dose: 8.6 mg Thiamine HCl (Vitamin B1 Tab) 100 mg PO DAILY [facility] Last Admin: 03/30/17 10:06 Dose: 100 mg Zolpidem Tartrate (Ambien) 5 mg PO HS PRN PRN Reason: Insomnia Last Admin: 03/29/17 21:48 Dose: 5 mg - Labs Labs: 03/30/17 07:05 03/30/17 05:10 - Constitutional Appears: Well, Non-toxic, No Acute Distress - Extremities Exam Additional comments: Right lower extremity focused. Left leg above knee amputation noted. Dressings are clean, dry, and intact. VASC: DP and PT pulses non-palpable. DP pulses was faintly monophasic upon doppler examination. Temperature gradient runs cool to cool from proximal leg to dista foot, outside acceptable limits. Absent capillary digital refill time to 4th digit, 3 digits capillary refill time <3 seconds. NEURO: Protective sensation grossly diminished. DERM: Full thickness ulceration measuring 6 x 2.8 cm with 85% necrotic 15% fibrotic wound base. No malodor, no drainage, no acute signs of infection noted. 4th digit presents with duskiness. Ortho: No tenderness to palpation noted. Pedal muscle strength graded 5/5 in all 4 major muscle groups. - Neurological Exam Neurological Exam: Alert, Awake, Oriented x3 - Psychiatric Exam Psychiatric exam: Normal Affect, Normal Mood Assessment and Plan - Assessment and Plan (Free Text) Assessment: 51 year old male with full thickness lateral foot ulceration secondary to PAD. Plan: Patient was evaluated Patient discussed in details with attending Dr. Malik Chart, labs, and vitals reviewed - afebrile, absent leukocytosis. Right foot ulcer site cleansed with sterile saline, dressed with betadine and DSD. Continue pain medications Continue IV abx. X-rays reviewed. Angiogram results - severe stenosis of common femoral artery; heavily calcified popliteal artery with diffuse moderate stenosis, Anterior tibial artery heavily calcified , PT artery is occluded, Peroneal artery shoes runoff Vascular surgery, Dr. Fernández, evaluation and recommendations appreciated - AKA vs. BKA tp be determined Podiatry will follow patient while in-house
--- NOTE | 2017-03-30 21:31 | CP.PCM.PN ---
Subjective - Date & Time of Evaluation Date of Evaluation: 03/30/17 Time of Evaluation: 15:00 - Subjective Subjective: PT SEEN AND EXAMINED, RIGHT FOOT WOUND IS GETTING WORSE, HE MIGHT NEED BKA Objective - Vital Signs/Intake and Output Vital Signs (last 24 hours): Temp Pulse Resp BP Pulse Ox 98.5 F 80 20 132/76 98 03/30/17 15:15 03/30/17 15:15 03/30/17 15:15 03/30/17 17:20 03/30/17 15:15 Intake and Output: 03/30/17 03/31/17 18:59 06:59 Intake Total 750 Balance 750 - Medications Medications: Current Medications Acetaminophen (Tylenol 325mg Tab) 650 mg PO Q6 PRN PRN Reason: Pain, Mild (1-3) Last Admin: 03/30/17 15:40 Dose: 650 mg Carvedilol (Coreg) 25 mg PO BID [facility] Last Admin: 03/30/17 17:20 Dose: 25 mg Clopidogrel Bisulfate (Plavix) 75 mg PO DAILY [facility] Last Admin: 03/30/17 10:07 Dose: 75 mg Enoxaparin Sodium (Lovenox) 40 mg SC DAILY [facility] Last Admin: 03/30/17 10:07 Dose: 40 mg Gabapentin (Neurontin) 300 mg PO TID [facility] Last Admin: 03/30/17 17:20 Dose: 300 mg Vancomycin/Sodium Chloride (Vancomycin 1 Gm/Ns 200 Ml) 1 gm in 200 mls @ 133.333 mls/hr IVPB Q12H [facility] Stop: 04/02/17 07:46 Last Admin: 03/30/17 19:00 Dose: 133.333 mls/hr Piperacillin Sod/Tazobactam Sod (Zosyn 3.375 Gm Iv Premix) 3.375 gm in 50 mls @ 100 mls/hr IVPB Q6H [facility] Last Admin: 03/30/17 17:21 Dose: 100 mls/hr Insulin Aspart (Novolog) 0 unit SC ACHS [facility] PRN Reason: Protocol Last Admin: 03/30/17 17:26 Dose: Not Given Insulin Glargine (Lantus) 30 unit SC Q12 [facility] Last Admin: 03/30/17 10:08 Dose: Not Given Lactic Acid (Lac-Hydrin 12% Lotion (225 G)) 4 gm EXT BID [facility] Last Admin: 03/30/17 21:22 Dose: 1 applic Losartan Potassium (Cozaar) 25 mg PO DAILY [facility] Last Admin: 03/30/17 10:06 Dose: 25 mg Multivitamins/Minerals (Therapeutic-M Tab) 1 tab PO DAILY [facility] Last Admin: 03/30/17 10:07 Dose: 1 tab Ondansetron HCl (Zofran Tab) 4 mg PO Q8H PRN PRN Reason: Nausea/Vomiting Oxycodone/Acetaminophen (Percocet 5/325 Mg Tab) 2 tab PO Q4H PRN PRN Reason: Pain, moderate (4-7) Stop: 03/31/17 02:39 Last Admin: 03/30/17 17:18 Dose: 2 tab Rosuvastatin Calcium (Crestor) 5 mg PO HS [facility] Last Admin: 03/30/17 21:25 Dose: 5 mg Sennosides (Senokot Tab) 8.6 mg PO DAILY [facility] Last Admin: 03/30/17 10:07 Dose: 8.6 mg Thiamine HCl (Vitamin B1 Tab) 100 mg PO DAILY [facility] Last Admin: 03/30/17 10:06 Dose: 100 mg Zolpidem Tartrate (Ambien) 5 mg PO HS PRN PRN Reason: Insomnia Last Admin: 03/30/17 21:25 Dose: 5 mg - Labs Labs: 03/30/17 07:05 03/30/17 05:10 - Constitutional Appears: No Acute Distress - Head Exam Head Exam: ATRAUMATIC, NORMAL INSPECTION, NORMOCEPHALIC - Eye Exam Eye Exam: EOMI, Normal appearance, PERRL Pupil Exam: NORMAL ACCOMODATION, PERRL - Respiratory Exam Respiratory Exam: Clear to Ausculation Bilateral, NORMAL BREATHING PATTERN - Cardiovascular Exam Cardiovascular Exam: REGULAR RHYTHM, +S1, +S2. absent: Murmur - GI/Abdominal Exam GI & Abdominal Exam: Soft, Normal Bowel Sounds. absent: Tenderness - Extremities Exam Extremities Exam: Joint Swelling, Pedal Edema, Tenderness Assessment and Plan (1) Diabetic foot infection Status: Acute (2) Gangrene of right foot Assessment & Plan: POSSIBLE IMPENDING GANGRENE REQURING BKA Status: Acute (3) Above knee amputation of left lower extremity Status: Acute (4) HTN (hypertension) Status: Acute (5) COPD (chronic obstructive pulmonary disease) Status: Chronic (6) Diabetes mellitus Status: Chronic (7) PAD (peripheral artery disease) Status: Chronic
[2017-03-31] MEDS: Oxycodone/Acetaminophen 5/325 mg Tab PO PRN ×4 (02:35→22:31)
[2017-03-31] MEDS: Piperacill/Tazo 3.375gm in Dex 3.375 GM/50 ML BAG IVPB SCH ×4 (05:45→22:30)
[2017-03-31] MEDS: Vancomycin 1 gm/NS 200 ml 1 GM/200 ML BAG IVPB SCH ×2 (06:45→21:44)
[2017-03-31] MEDS: (Novolog) Insulin Aspart, Recombinant 100 u/ml 10 ml vial SC SCH ×4 (07:48→22:32)
[2017-03-31] MEDS ORDERED: Oxycodone/Acetaminophen 5/325 mg Tab PO PRN (08:00)
--- NOTE | 2017-03-31 08:30 | CP.PCM.PN ---
Subjective - Date & Time of Evaluation Date of Evaluation: 03/31/17 Time of Evaluation: 07:40 - Subjective Subjective: Vascular surgery progress note for Dr. Isacc Vogt,PGY-1 Pt S & E at bedside. Pt reports continued RLE pain, slept well, no other complaints. Objective - Vital Signs/Intake and Output Vital Signs (last 24 hours): Temp Pulse Resp BP Pulse Ox 98.5 F 91 H 20 136/89 99 03/31/17 07:57 03/31/17 07:57 03/31/17 07:57 03/31/17 07:57 03/31/17 07:57 Intake and Output: 03/31/17 03/31/17 06:59 18:59 Intake Total 450 Balance 450 - Medications Medications: Current Medications Acetaminophen (Tylenol 325mg Tab) 650 mg PO Q6 PRN PRN Reason: Pain, Mild (1-3) Last Admin: 03/31/17 00:25 Dose: 650 mg Carvedilol (Coreg) 25 mg PO BID [facility] Last Admin: 03/30/17 17:20 Dose: 25 mg Clopidogrel Bisulfate (Plavix) 75 mg PO DAILY [facility] Last Admin: 03/30/17 10:07 Dose: 75 mg Enoxaparin Sodium (Lovenox) 40 mg SC DAILY [facility] Last Admin: 03/30/17 10:07 Dose: 40 mg Gabapentin (Neurontin) 300 mg PO TID [facility] Last Admin: 03/30/17 17:20 Dose: 300 mg Vancomycin/Sodium Chloride (Vancomycin 1 Gm/Ns 200 Ml) 1 gm in 200 mls @ 133.333 mls/hr IVPB Q12H [facility] Stop: 04/02/17 07:46 Last Admin: 03/31/17 06:45 Dose: 133.333 mls/hr Piperacillin Sod/Tazobactam Sod (Zosyn 3.375 Gm Iv Premix) 3.375 gm in 50 mls @ 100 mls/hr IVPB Q6H [facility] Last Admin: 03/31/17 05:45 Dose: 100 mls/hr Insulin Aspart (Novolog) 0 unit SC ACHS [facility] PRN Reason: Protocol Last Admin: 03/31/17 07:48 Dose: Not Given Insulin Glargine (Lantus) 30 unit SC Q12 [facility] Last Admin: 03/30/17 21:44 Dose: Not Given Lactic Acid (Lac-Hydrin 12% Lotion (225 G)) 4 gm EXT BID [facility] Last Admin: 03/30/17 21:22 Dose: 1 applic Losartan Potassium (Cozaar) 25 mg PO DAILY [facility] Last Admin: 03/30/17 10:06 Dose: 25 mg Multivitamins/Minerals (Therapeutic-M Tab) 1 tab PO DAILY [facility] Last Admin: 03/30/17 10:07 Dose: 1 tab Ondansetron HCl (Zofran Tab) 4 mg PO Q8H PRN PRN Reason: Nausea/Vomiting Oxycodone/Acetaminophen (Percocet 5/325 Mg Tab) 2 tab PO Q4H PRN PRN Reason: Pain, moderate (4-7) Stop: 04/03/17 08:09 Last Admin: 03/31/17 08:23 Dose: 2 tab Rosuvastatin Calcium (Crestor) 5 mg PO HS [facility] Last Admin: 03/30/17 21:25 Dose: 5 mg Sennosides (Senokot Tab) 8.6 mg PO DAILY [facility] Last Admin: 03/30/17 10:07 Dose: 8.6 mg Thiamine HCl (Vitamin B1 Tab) 100 mg PO DAILY [facility] Last Admin: 03/30/17 10:06 Dose: 100 mg Zolpidem Tartrate (Ambien) 5 mg PO HS PRN PRN Reason: Insomnia Last Admin: 03/30/17 21:25 Dose: 5 mg - Labs Labs: 03/30/17 07:05 03/30/17 05:10 - Constitutional Appears: Non-toxic, No Acute Distress - Head Exam Head Exam: ATRAUMATIC, NORMAL INSPECTION, NORMOCEPHALIC - Eye Exam Eye Exam: EOMI, Normal appearance - ENT Exam ENT Exam: Mucous Membranes Moist, Normal Exam - Neck Exam Neck Exam: Full ROM, Normal Inspection - Respiratory Exam Respiratory Exam: NORMAL BREATHING PATTERN - Cardiovascular Exam Cardiovascular Exam: REGULAR RHYTHM, +S1, +S2 - Extremities Exam Extremities Exam: absent: Normal Inspection (L AKA, RLE with tenderness to palpation) - Neurological Exam Neurological Exam: Alert, Awake, CN II-XII Intact, Oriented x3 - Psychiatric Exam Psychiatric exam: Normal Affect, Normal Mood - Skin Skin Exam: Dry, Intact, Normal Color, Warm Additional comments: RLE with dressing in place- clean/dry/intact Assessment and Plan - Assessment and Plan (Free Text) Assessment: 52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 BKA to be determined, pending discussion b/w attending and patient Will DW attending Torie, PGY-1
[2017-03-31] MEDS: Multivitamin With Minerals Tab PO SCH (11:10)
[2017-03-31] MEDS: Enoxaparin 40 mg Syringe SC SCH (11:11)
[2017-03-31] MEDS: (Lantus) Insulin Glargine, Recombinant SC SCH ×2 (11:15→22:33)
[2017-03-31] MEDS: Ammonium Lactate 12% Lotion (225 g) EXT SCH ×2 (11:15→17:49)
--- NOTE | 2017-03-31 14:18 | CP.PCM.PN ---
Subjective - Date & Time of Evaluation Date of Evaluation: 03/31/17 Time of Evaluation: 14:15 - Subjective Subjective: Podiatry Progress Note for Dr. Malik 51 year old male was seen at bedside concerning right foot dry gangrene with attending, Dr. Malik. Patient appears to be resting comfortably in his bed and is AAOx3. Patient is in NAD and denies of any acute overnight events. Patient denies of having any F/N/V/C/SOB/CP. Denies any pain to his RLE. Objective - Vital Signs/Intake and Output Vital Signs (last 24 hours): Temp Pulse Resp BP Pulse Ox 98.5 F 91 H 20 136/89 99 03/31/17 07:57 03/31/17 07:57 03/31/17 07:57 03/31/17 11:10 03/31/17 07:57 Intake and Output: 03/31/17 03/31/17 06:59 18:59 Intake Total 450 Balance 450 - Medications Medications: Current Medications Acetaminophen (Tylenol 325mg Tab) 650 mg PO Q6 PRN PRN Reason: Pain, Mild (1-3) Last Admin: 03/31/17 12:08 Dose: 650 mg Carvedilol (Coreg) 25 mg PO BID [facility] Last Admin: 03/31/17 11:10 Dose: 25 mg Clopidogrel Bisulfate (Plavix) 75 mg PO DAILY [facility] Last Admin: 03/31/17 11:10 Dose: 75 mg Enoxaparin Sodium (Lovenox) 40 mg SC DAILY [facility] Last Admin: 03/31/17 11:11 Dose: 40 mg Gabapentin (Neurontin) 300 mg PO TID [facility] Last Admin: 03/31/17 13:51 Dose: 300 mg Vancomycin/Sodium Chloride (Vancomycin 1 Gm/Ns 200 Ml) 1 gm in 200 mls @ 133.333 mls/hr IVPB Q12H [facility] Stop: 04/02/17 07:46 Last Admin: 03/31/17 06:45 Dose: 133.333 mls/hr Piperacillin Sod/Tazobactam Sod (Zosyn 3.375 Gm Iv Premix) 3.375 gm in 50 mls @ 100 mls/hr IVPB Q6H [facility] Last Admin: 03/31/17 11:18 Dose: 100 mls/hr Insulin Aspart (Novolog) 0 unit SC ACHS [facility] PRN Reason: Protocol Last Admin: 03/31/17 12:11 Dose: Not Given Insulin Glargine (Lantus) 30 unit SC Q12 [facility] Last Admin: 03/31/17 11:15 Dose: Not Given Lactic Acid (Lac-Hydrin 12% Lotion (225 G)) 4 gm EXT BID [facility] Last Admin: 03/31/17 11:15 Dose: 1 applic Losartan Potassium (Cozaar) 25 mg PO DAILY [facility] Last Admin: 03/31/17 11:10 Dose: 25 mg Multivitamins/Minerals (Therapeutic-M Tab) 1 tab PO DAILY [facility] Last Admin: 03/31/17 11:10 Dose: 1 tab Ondansetron HCl (Zofran Tab) 4 mg PO Q8H PRN PRN Reason: Nausea/Vomiting Oxycodone/Acetaminophen (Percocet 5/325 Mg Tab) 2 tab PO Q4H PRN PRN Reason: Pain, moderate (4-7) Stop: 04/03/17 08:09 Last Admin: 03/31/17 08:23 Dose: 2 tab Rosuvastatin Calcium (Crestor) 5 mg PO HS [facility] Last Admin: 03/30/17 21:25 Dose: 5 mg Sennosides (Senokot Tab) 8.6 mg PO DAILY [facility] Last Admin: 03/31/17 11:10 Dose: 8.6 mg Thiamine HCl (Vitamin B1 Tab) 100 mg PO DAILY [facility] Last Admin: 03/31/17 11:10 Dose: 100 mg Zolpidem Tartrate (Ambien) 5 mg PO HS PRN PRN Reason: Insomnia Last Admin: 03/30/17 21:25 Dose: 5 mg - Labs Labs: 03/30/17 07:05 03/30/17 05:10 - Constitutional Appears: Well, Non-toxic, No Acute Distress - Extremities Exam Additional comments: Right lower extremity focused. Left leg above knee amputation noted. Dressings are clean, dry, and intact. VASC: DP and PT pulses non-palpable. Temperature gradient runs cool to cold from proximal leg to distal foot, outside acceptable limits. Absent capillary digital refill time to 4th digit, 3 digits capillary refill time <3 seconds. NEURO: Protective sensation grossly diminished. DERM: Full thickness ulceration measuring approximately 6 x 2.8 cm with 85% necrotic 15% fibrotic wound base. No malodor, no drainage, no acute signs of infection noted. 4th digit presents with duskiness. Ortho: No tenderness to palpation noted. Pedal muscle strength graded 5/5 in all 4 major muscle groups. - Neurological Exam Neurological Exam: Alert, Awake, Oriented x3 - Psychiatric Exam Psychiatric exam: Normal Affect, Normal Mood Assessment and Plan - Assessment and Plan (Free Text) Assessment: 51 year old male with full thickness lateral foot ulceration secondary to PAD. Plan: Patient was evaluated with attending, Dr. Malik Chart, labs, and vitals reviewed - afebrile, absent leukocytosis. Right foot ulcer site cleansed with sterile saline, dressed with betadine and DSD. Continue pain medications per primary Continue IV abx X-rays reviewed Angiogram results: severe stenosis of common femoral artery; heavily calcified popliteal artery with diffuse moderate stenosis, Anterior tibial artery heavily calcified, PT artery is occluded, Peroneal artery shoes runoff Vascular surgery, Dr. Fernández, evaluation and recommendations appreciate AKA vs. BKA tp be determined Podiatry will follow patient while in-house
--- NOTE | 2017-03-31 22:22 | CP.PCM.PN ---
Subjective - Date & Time of Evaluation Date of Evaluation: 03/31/17 Time of Evaluation: 18:00 - Subjective Subjective: Pt seen and examined at bedside, feeling better Objective - Vital Signs/Intake and Output Vital Signs (last 24 hours): Temp Pulse Resp BP Pulse Ox 98.0 F 82 20 126/73 99 03/31/17 16:00 03/31/17 16:00 03/31/17 16:00 03/31/17 17:48 03/31/17 16:00 Intake and Output: 03/31/17 04/01/17 18:59 06:59 Intake Total 450 Output Total 450 Balance 0 - Medications Medications: Current Medications Acetaminophen (Tylenol 325mg Tab) 650 mg PO Q6 PRN PRN Reason: Pain, Mild (1-3) Last Admin: 03/31/17 20:20 Dose: 650 mg Carvedilol (Coreg) 25 mg PO BID [facility] Last Admin: 03/31/17 17:48 Dose: 25 mg Clopidogrel Bisulfate (Plavix) 75 mg PO DAILY [facility] Last Admin: 03/31/17 11:10 Dose: 75 mg Enoxaparin Sodium (Lovenox) 40 mg SC DAILY [facility] Last Admin: 03/31/17 11:11 Dose: 40 mg Gabapentin (Neurontin) 300 mg PO TID [facility] Last Admin: 03/31/17 17:46 Dose: 300 mg Vancomycin/Sodium Chloride (Vancomycin 1 Gm/Ns 200 Ml) 1 gm in 200 mls @ 133.333 mls/hr IVPB Q12H [facility] Stop: 04/02/17 07:46 Last Admin: 03/31/17 21:44 Dose: 133.333 mls/hr Piperacillin Sod/Tazobactam Sod (Zosyn 3.375 Gm Iv Premix) 3.375 gm in 50 mls @ 100 mls/hr IVPB Q6H [facility] Last Admin: 03/31/17 17:46 Dose: 100 mls/hr Insulin Aspart (Novolog) 0 unit SC ACHS [facility] PRN Reason: Protocol Last Admin: 03/31/17 17:45 Dose: Not Given Insulin Glargine (Lantus) 30 unit SC Q12 [facility] Last Admin: 03/31/17 11:15 Dose: Not Given Lactic Acid (Lac-Hydrin 12% Lotion (225 G)) 4 gm EXT BID [facility] Last Admin: 03/31/17 17:49 Dose: 1 applic Losartan Potassium (Cozaar) 25 mg PO DAILY [facility] Last Admin: 03/31/17 11:10 Dose: 25 mg Multivitamins/Minerals (Therapeutic-M Tab) 1 tab PO DAILY [facility] Last Admin: 03/31/17 11:10 Dose: 1 tab Ondansetron HCl (Zofran Tab) 4 mg PO Q8H PRN PRN Reason: Nausea/Vomiting Oxycodone/Acetaminophen (Percocet 5/325 Mg Tab) 2 tab PO Q4H PRN PRN Reason: Pain, moderate (4-7) Stop: 04/03/17 08:09 Last Admin: 03/31/17 17:42 Dose: 2 tab Rosuvastatin Calcium (Crestor) 5 mg PO HS [facility] Last Admin: 03/31/17 21:43 Dose: 5 mg Sennosides (Senokot Tab) 8.6 mg PO DAILY [facility] Last Admin: 03/31/17 11:10 Dose: 8.6 mg Thiamine HCl (Vitamin B1 Tab) 100 mg PO DAILY [facility] Last Admin: 03/31/17 11:10 Dose: 100 mg Zolpidem Tartrate (Ambien) 5 mg PO HS PRN PRN Reason: Insomnia Last Admin: 03/31/17 21:43 Dose: 5 mg - Labs Labs: 03/30/17 07:05 03/30/17 05:10 - Constitutional Appears: No Acute Distress - Head Exam Head Exam: ATRAUMATIC, NORMAL INSPECTION, NORMOCEPHALIC - Respiratory Exam Respiratory Exam: Clear to Ausculation Bilateral, NORMAL BREATHING PATTERN - Cardiovascular Exam Cardiovascular Exam: REGULAR RHYTHM, +S1, +S2. absent: Murmur - GI/Abdominal Exam GI & Abdominal Exam: Soft, Normal Bowel Sounds. absent: Tenderness - Extremities Exam Additional comments: Right lower extremity focused. Left leg above knee amputation noted. Dressings are clean, dry, and intact. VASC: DP and PT pulses non-palpable. Temperature gradient runs cool to cold from proximal leg to distal foot, outside acceptable limits. Absent capillary digital refill time to 4th digit, 3 digits capillary refill time <3 seconds. NEURO: Protective sensation grossly diminished. DERM: Full thickness ulceration measuring approximately 6 x 2.8 cm with 85% necrotic 15% fibrotic wound base. No malodor, no drainage, no acute signs of infection noted. 4th digit presents with duskiness. Ortho: No tenderness to palpation noted. Pedal muscle strength graded 5/5 in all 4 major muscle groups. Assessment and Plan (1) Diabetic foot infection Status: Acute (2) Gangrene of right foot Status: Acute (3) Above knee amputation of left lower extremity Status: Acute (4) HTN (hypertension) Status: Acute (5) COPD (chronic obstructive pulmonary disease) Status: Chronic (6) Diabetes mellitus Status: Chronic (7) PAD (peripheral artery disease) Status: Chronic
[2017-04-01] MEDS: Piperacill/Tazo 3.375gm in Dex 3.375 GM/50 ML BAG IVPB SCH ×2 (05:30→11:32)
[2017-04-01] MEDS: Oxycodone/Acetaminophen 5/325 mg Tab PO PRN ×5 (05:43→22:36)
[2017-04-01] MEDS: Vancomycin 1 gm/NS 200 ml 1 GM/200 ML BAG IVPB SCH ×2 (06:57→18:48)
[2017-04-01] MEDS: (Novolog) Insulin Aspart, Recombinant 100 u/ml 10 ml vial SC SCH ×5 (08:00→22:34)
--- NOTE | 2017-04-01 08:24 | CP.PCM.PN ---
Subjective - Date & Time of Evaluation Date of Evaluation: 04/01/17 Time of Evaluation: 07:15 - Subjective Subjective: Vascular Surgery Pt S&E, NAEO. No complaints at this time. Objective - Vital Signs/Intake and Output Vital Signs (last 24 hours): Temp Pulse Resp BP Pulse Ox 98.6 F 96 H 20 122/84 96 04/01/17 07:21 04/01/17 07:21 04/01/17 07:21 04/01/17 07:21 04/01/17 07:21 Intake and Output: 04/01/17 04/01/17 06:59 18:59 Intake Total 790 Output Total 600 Balance 190 - Medications Medications: Current Medications Acetaminophen (Tylenol 325mg Tab) 650 mg PO Q6 PRN PRN Reason: Pain, Mild (1-3) Last Admin: 03/31/17 20:20 Dose: 650 mg Carvedilol (Coreg) 25 mg PO BID [facility] Last Admin: 03/31/17 17:48 Dose: 25 mg Clopidogrel Bisulfate (Plavix) 75 mg PO DAILY [facility] Last Admin: 03/31/17 11:10 Dose: 75 mg Enoxaparin Sodium (Lovenox) 40 mg SC DAILY [facility] Last Admin: 03/31/17 11:11 Dose: 40 mg Gabapentin (Neurontin) 300 mg PO TID [facility] Last Admin: 03/31/17 17:46 Dose: 300 mg Vancomycin/Sodium Chloride (Vancomycin 1 Gm/Ns 200 Ml) 1 gm in 200 mls @ 133.333 mls/hr IVPB Q12H [facility] Stop: 04/02/17 07:46 Last Admin: 04/01/17 06:57 Dose: 133.333 mls/hr Piperacillin Sod/Tazobactam Sod (Zosyn 3.375 Gm Iv Premix) 3.375 gm in 50 mls @ 100 mls/hr IVPB Q6H [facility] Last Admin: 04/01/17 05:30 Dose: 100 mls/hr Insulin Aspart (Novolog) 0 unit SC ACHS [facility] PRN Reason: Protocol Last Admin: 04/01/17 08:00 Dose: 2 unit Insulin Glargine (Lantus) 30 unit SC Q12 [facility] Last Admin: 03/31/17 22:33 Dose: Not Given Lactic Acid (Lac-Hydrin 12% Lotion (225 G)) 4 gm EXT BID [facility] Last Admin: 03/31/17 17:49 Dose: 1 applic Losartan Potassium (Cozaar) 25 mg PO DAILY [facility] Last Admin: 03/31/17 11:10 Dose: 25 mg Multivitamins/Minerals (Therapeutic-M Tab) 1 tab PO DAILY [facility] Last Admin: 03/31/17 11:10 Dose: 1 tab Ondansetron HCl (Zofran Tab) 4 mg PO Q8H PRN PRN Reason: Nausea/Vomiting Oxycodone/Acetaminophen (Percocet 5/325 Mg Tab) 2 tab PO Q4H PRN PRN Reason: Pain, moderate (4-7) Stop: 04/03/17 08:09 Last Admin: 04/01/17 05:43 Dose: 2 tab Rosuvastatin Calcium (Crestor) 5 mg PO HS [facility] Last Admin: 03/31/17 21:43 Dose: 5 mg Sennosides (Senokot Tab) 8.6 mg PO DAILY [facility] Last Admin: 03/31/17 11:10 Dose: 8.6 mg Thiamine HCl (Vitamin B1 Tab) 100 mg PO DAILY [facility] Last Admin: 03/31/17 11:10 Dose: 100 mg Zolpidem Tartrate (Ambien) 5 mg PO HS PRN PRN Reason: Insomnia Last Admin: 03/31/17 21:43 Dose: 5 mg - Labs Labs: 03/30/17 07:05 03/30/17 05:10 - Constitutional Appears: Non-toxic, No Acute Distress - Head Exam Head Exam: ATRAUMATIC, NORMOCEPHALIC - Eye Exam Eye Exam: EOMI. absent: Scleral icterus - Respiratory Exam Respiratory Exam: NORMAL BREATHING PATTERN. 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 NPO p MN Hold 04/02/17 AM Lovenox dose D/W Dr. Pradeep Walls PGY4
[2017-04-01] MEDS: Multivitamin With Minerals Tab PO SCH (09:27)
[2017-04-01] MEDS: (Lantus) Insulin Glargine, Recombinant SC SCH ×2 (09:28→22:33)
[2017-04-01] MEDS: Enoxaparin 40 mg Syringe SC SCH (09:28)
[2017-04-01] MEDS: Ammonium Lactate 12% Lotion (225 g) EXT SCH ×2 (09:29→18:06)
--- NOTE | 2017-04-01 12:36 | PCM.SURG1 ---
Surgeon's Initial Post Op Note - Surgeon's Notes Surgeon: Ta Oshea MD Side Laster Staple: NONE Type of Anesthesia: Local Pre-Operative Diagnosis: Infection Operative Findings: US showed a patent right basilic vein. Post-Operative Diagnosis: Infection Operation Performed: Single lumen picc right basilic vein, 35 cm. Tip is in the SVC. Specimen/Specimens Removed: NONE Estimated Blood Loss: EBL {In ML}: 2 Blood Products Given: N/A Drains Used: No Drains Post-Op Condition: Fair Date of Surgery/Procedure: 04/01/17 Time of Surgery/Procedure: 12:30
--- NOTE | 2017-04-01 16:09 | CP.PCM.PN ---
Subjective - Date & Time of Evaluation Date of Evaluation: 04/01/17 Time of Evaluation: 16:08 - Subjective Subjective: for angio in am high risk procedure alternative is primary amputation Objective - Vital Signs/Intake and Output Vital Signs (last 24 hours): Temp Pulse Resp BP Pulse Ox 98.1 F 77 20 111/71 100 04/01/17 15:55 04/01/17 15:55 04/01/17 15:55 04/01/17 15:55 04/01/17 15:55 Intake and Output: 04/01/17 04/01/17 06:59 18:59 Intake Total 790 700 Output Total 600 Balance 190 700 - Medications Medications: Current Medications Acetaminophen (Tylenol 325mg Tab) 650 mg PO Q6 PRN PRN Reason: Pain, Mild (1-3) Last Admin: 04/01/17 11:35 Dose: 650 mg Carvedilol (Coreg) 25 mg PO BID [facility] Last Admin: 04/01/17 09:27 Dose: 25 mg Clopidogrel Bisulfate (Plavix) 75 mg PO DAILY [facility] Last Admin: 04/01/17 09:27 Dose: 75 mg Enoxaparin Sodium (Lovenox) 40 mg SC DAILY [facility] Last Admin: 04/01/17 09:28 Dose: 40 mg Gabapentin (Neurontin) 300 mg PO TID [facility] Last Admin: 04/01/17 13:59 Dose: 300 mg Vancomycin/Sodium Chloride (Vancomycin 1 Gm/Ns 200 Ml) 1 gm in 200 mls @ 133.333 mls/hr IVPB Q12H [facility] Stop: 04/02/17 07:46 Last Admin: 04/01/17 06:57 Dose: 133.333 mls/hr Piperacillin Sod/Tazobactam (Sod 3.375 gm/ Sodium Chloride) 100 mls @ 100 mls/ hr IVPB Q6H [facility] Insulin Aspart (Novolog) 0 unit SC ACHS [facility] PRN Reason: Protocol Last Admin: 04/01/17 11:25 Dose: Not Given Insulin Glargine (Lantus) 30 unit SC Q12 [facility] Last Admin: 04/01/17 09:28 Dose: Not Given Lactic Acid (Lac-Hydrin 12% Lotion (225 G)) 4 gm EXT BID [facility] Last Admin: 04/01/17 09:29 Dose: 1 applic Losartan Potassium (Cozaar) 25 mg PO DAILY [facility] Last Admin: 04/01/17 09:27 Dose: 25 mg Multivitamins/Minerals (Therapeutic-M Tab) 1 tab PO DAILY [facility] Last Admin: 04/01/17 09:27 Dose: 1 tab Ondansetron HCl (Zofran Tab) 4 mg PO Q8H PRN PRN Reason: Nausea/Vomiting Oxycodone/Acetaminophen (Percocet 5/325 Mg Tab) 2 tab PO Q4H PRN PRN Reason: Pain, moderate (4-7) Stop: 04/03/17 08:09 Last Admin: 04/01/17 13:59 Dose: 2 tab Rosuvastatin Calcium (Crestor) 5 mg PO HS [facility] Last Admin: 03/31/17 21:43 Dose: 5 mg Sennosides (Senokot Tab) 8.6 mg PO DAILY [facility] Last Admin: 04/01/17 09:27 Dose: 8.6 mg Thiamine HCl (Vitamin B1 Tab) 100 mg PO DAILY [facility] Last Admin: 04/01/17 09:27 Dose: 100 mg Zolpidem Tartrate (Ambien) 5 mg PO HS PRN PRN Reason: Insomnia Last Admin: 03/31/17 21:43 Dose: 5 mg - Labs Labs: 03/30/17 07:05 03/30/17 05:10
[2017-04-01] MEDS: Piperacillin/Tazobact 3.375 GM in Sodium Chloride 100 ML IVPB SCH ×2 (18:07→22:37)
[2017-04-01 22:31] LABS: INR 1.1; PROTHROMBIN TIME 12.8 SECONDS (9.7-12.2)
--- NOTE | 2017-04-01 23:30 | CP.PCM.PN ---
Subjective - Date & Time of Evaluation Date of Evaluation: 04/01/17 Time of Evaluation: 18:00 - Subjective Subjective: Pt seen and examined, is for angiogram tommorow morning, he is afberile, on antibiottics wound is getting worse right foot wound underlying osteomyelitis and gangrene for vascular and surgical consult Objective - Vital Signs/Intake and Output Vital Signs (last 24 hours): Temp Pulse Resp BP Pulse Ox 98.1 F 77 20 111/71 100 04/01/17 15:55 04/01/17 15:55 04/01/17 15:55 04/01/17 18:04 04/01/17 15:55 Intake and Output: 04/01/17 04/02/17 18:59 06:59 Intake Total 700 800 Balance 700 800 - Medications Medications: Current Medications Acetaminophen (Tylenol 325mg Tab) 650 mg PO Q6 PRN PRN Reason: Pain, Mild (1-3) Last Admin: 04/01/17 21:08 Dose: 650 mg Carvedilol (Coreg) 25 mg PO BID [facility] Last Admin: 04/01/17 18:04 Dose: 25 mg Clopidogrel Bisulfate (Plavix) 75 mg PO DAILY [facility] Last Admin: 04/01/17 09:27 Dose: 75 mg Enoxaparin Sodium (Lovenox) 40 mg SC DAILY [facility] Last Admin: 04/01/17 09:28 Dose: 40 mg Gabapentin (Neurontin) 300 mg PO TID [facility] Last Admin: 04/01/17 18:04 Dose: 300 mg Vancomycin/Sodium Chloride (Vancomycin 1 Gm/Ns 200 Ml) 1 gm in 200 mls @ 133.333 mls/hr IVPB Q12H [facility] Stop: 04/02/17 07:46 Last Admin: 04/01/17 18:48 Dose: 133.333 mls/hr Piperacillin Sod/Tazobactam (Sod 3.375 gm/ Sodium Chloride) 100 mls @ 100 mls/ hr IVPB Q6H [facility] Last Admin: 04/01/17 22:37 Dose: 100 mls/hr Insulin Aspart (Novolog) 0 unit SC ACHS [facility] PRN Reason: Protocol Last Admin: 04/01/17 22:34 Dose: Not Given Insulin Glargine (Lantus) 30 unit SC Q12 [facility] Last Admin: 04/01/17 22:33 Dose: Not Given Lactic Acid (Lac-Hydrin 12% Lotion (225 G)) 4 gm EXT BID [facility] Last Admin: 04/01/17 18:06 Dose: 1 applic Losartan Potassium (Cozaar) 25 mg PO DAILY [facility] Last Admin: 04/01/17 09:27 Dose: 25 mg Multivitamins/Minerals (Therapeutic-M Tab) 1 tab PO DAILY [facility] Last Admin: 04/01/17 09:27 Dose: 1 tab Ondansetron HCl (Zofran Tab) 4 mg PO Q8H PRN PRN Reason: Nausea/Vomiting Oxycodone/Acetaminophen (Percocet 5/325 Mg Tab) 2 tab PO Q4H PRN PRN Reason: Pain, moderate (4-7) Stop: 04/03/17 08:09 Last Admin: 04/01/17 22:36 Dose: 2 tab Rosuvastatin Calcium (Crestor) 5 mg PO HS [facility] Last Admin: 04/01/17 21:08 Dose: 5 mg Sennosides (Senokot Tab) 8.6 mg PO DAILY [facility] Last Admin: 04/01/17 09:27 Dose: 8.6 mg Thiamine HCl (Vitamin B1 Tab) 100 mg PO DAILY [facility] Last Admin: 04/01/17 09:27 Dose: 100 mg Zolpidem Tartrate (Ambien) 5 mg PO HS PRN PRN Reason: Insomnia Last Admin: 04/01/17 21:08 Dose: 5 mg - Labs Labs: 03/30/17 07:05 03/30/17 05:10 PT 12.8 SECONDS (9.7-12.2) H 04/01/17 22:20 INR 1.1 04/01/17 22:20 APTT 35 SECONDS (21-34) H 04/01/17 22:20 - Constitutional Appears: No Acute Distress - Head Exam Head Exam: ATRAUMATIC, NORMAL INSPECTION, NORMOCEPHALIC - Eye Exam Eye Exam: EOMI, Normal appearance, PERRL Pupil Exam: NORMAL ACCOMODATION, PERRL - Respiratory Exam Respiratory Exam: Decreased Breath Sounds, Rales, Rhonchi - Cardiovascular Exam Cardiovascular Exam: REGULAR RHYTHM, +S1, +S2. absent: Murmur - GI/Abdominal Exam GI & Abdominal Exam: Soft, Normal Bowel Sounds. absent: Tenderness - Extremities Exam Extremities Exam: Joint Swelling, Tenderness Additional comments: right foot gangrene - Neurological Exam Neurological Exam: Alert, Oriented x3 - Skin Skin Exam: Erythema, Vesicles Assessment and Plan (1) Diabetic foot infection Status: Acute (2) Gangrene of right foot Status: Acute (3) Above knee amputation of left lower extremity Status: Acute (4) HTN (hypertension) Status: Acute (5) COPD (chronic obstructive pulmonary disease) Status: Chronic (6) Diabetes mellitus Status: Chronic (7) PAD (peripheral artery disease) Status: Chronic
--- NOTE | 2017-04-01 23:32 | CP.PCM.PN ---
Subjective - Date & Time of Evaluation Date of Evaluation: 04/01/17 Time of Evaluation: 19:00 - Subjective Subjective: Pt is afebrile, on contact isolation, tolerating diet, she is post op , c/o post op pain in abdomen and scaral area, colostomy with green stool sacral decubitis healing Objective - Vital Signs/Intake and Output Vital Signs (last 24 hours): Temp Pulse Resp BP Pulse Ox 98.1 F 77 20 111/71 100 04/01/17 15:55 04/01/17 15:55 04/01/17 15:55 04/01/17 18:04 04/01/17 15:55 Intake and Output: 04/01/17 04/02/17 18:59 06:59 Intake Total 700 800 Balance 700 800 - Medications Medications: Current Medications Acetaminophen (Tylenol 325mg Tab) 650 mg PO Q6 PRN PRN Reason: Pain, Mild (1-3) Last Admin: 04/01/17 21:08 Dose: 650 mg Carvedilol (Coreg) 25 mg PO BID [facility] Last Admin: 04/01/17 18:04 Dose: 25 mg Clopidogrel Bisulfate (Plavix) 75 mg PO DAILY [facility] Last Admin: 04/01/17 09:27 Dose: 75 mg Enoxaparin Sodium (Lovenox) 40 mg SC DAILY [facility] Last Admin: 04/01/17 09:28 Dose: 40 mg Gabapentin (Neurontin) 300 mg PO TID [facility] Last Admin: 04/01/17 18:04 Dose: 300 mg Vancomycin/Sodium Chloride (Vancomycin 1 Gm/Ns 200 Ml) 1 gm in 200 mls @ 133.333 mls/hr IVPB Q12H [facility] Stop: 04/02/17 07:46 Last Admin: 04/01/17 18:48 Dose: 133.333 mls/hr Piperacillin Sod/Tazobactam (Sod 3.375 gm/ Sodium Chloride) 100 mls @ 100 mls/ hr IVPB Q6H [facility] Last Admin: 04/01/17 22:37 Dose: 100 mls/hr Insulin Aspart (Novolog) 0 unit SC ACHS [facility] PRN Reason: Protocol Last Admin: 04/01/17 22:34 Dose: Not Given Insulin Glargine (Lantus) 30 unit SC Q12 [facility] Last Admin: 04/01/17 22:33 Dose: Not Given Lactic Acid (Lac-Hydrin 12% Lotion (225 G)) 4 gm EXT BID [facility] Last Admin: 04/01/17 18:06 Dose: 1 applic Losartan Potassium (Cozaar) 25 mg PO DAILY [facility] Last Admin: 04/01/17 09:27 Dose: 25 mg Multivitamins/Minerals (Therapeutic-M Tab) 1 tab PO DAILY [facility] Last Admin: 04/01/17 09:27 Dose: 1 tab Ondansetron HCl (Zofran Tab) 4 mg PO Q8H PRN PRN Reason: Nausea/Vomiting Oxycodone/Acetaminophen (Percocet 5/325 Mg Tab) 2 tab PO Q4H PRN PRN Reason: Pain, moderate (4-7) Stop: 04/03/17 08:09 Last Admin: 04/01/17 22:36 Dose: 2 tab Rosuvastatin Calcium (Crestor) 5 mg PO HS [facility] Last Admin: 04/01/17 21:08 Dose: 5 mg Sennosides (Senokot Tab) 8.6 mg PO DAILY [facility] Last Admin: 04/01/17 09:27 Dose: 8.6 mg Thiamine HCl (Vitamin B1 Tab) 100 mg PO DAILY [facility] Last Admin: 04/01/17 09:27 Dose: 100 mg Zolpidem Tartrate (Ambien) 5 mg PO HS PRN PRN Reason: Insomnia Last Admin: 04/01/17 21:08 Dose: 5 mg - Labs Labs: 03/30/17 07:05 03/30/17 05:10 PT 12.8 SECONDS (9.7-12.2) H 04/01/17 22:20 INR 1.1 04/01/17 22:20 APTT 35 SECONDS (21-34) H 04/01/17 22:20 - Constitutional Appears: No Acute Distress - Head Exam Head Exam: ATRAUMATIC, NORMAL INSPECTION, NORMOCEPHALIC - Eye Exam Eye Exam: EOMI, Normal appearance, PERRL Pupil Exam: NORMAL ACCOMODATION, PERRL - Respiratory Exam Respiratory Exam: Clear to Ausculation Bilateral, NORMAL BREATHING PATTERN - Cardiovascular Exam Cardiovascular Exam: REGULAR RHYTHM, +S1, +S2. absent: Murmur - GI/Abdominal Exam GI & Abdominal Exam: Soft, Normal Bowel Sounds. absent: Tenderness Assessment and Plan (1) Diabetic foot infection Status: Acute (2) Gangrene of right foot Status: Acute (3) Above knee amputation of left lower extremity Status: Acute (4) HTN (hypertension) Status: Acute (5) COPD (chronic obstructive pulmonary disease) Status: Chronic (6) Diabetes mellitus Status: Chronic (7) PAD (peripheral artery disease) Status: Chronic
[2017-04-02] MEDS: Oxycodone/Acetaminophen 5/325 mg Tab PO PRN ×4 (03:40→21:42)
[2017-04-02] MEDS: Piperacillin/Tazobact 3.375 GM in Sodium Chloride 100 ML IVPB SCH ×4 (05:45→22:00)
[2017-04-02] MEDS: Vancomycin 1 gm/NS 200 ml 1 GM/200 ML BAG IVPB SCH (07:23)
[2017-04-02] MEDS: (Novolog) Insulin Aspart, Recombinant 100 u/ml 10 ml vial SC SCH ×4 (07:50→21:37)
[2017-04-02] MEDS: Multivitamin With Minerals Tab PO SCH (09:04)
[2017-04-02] MEDS: Ammonium Lactate 12% Lotion (225 g) EXT SCH ×2 (09:15→21:36)
[2017-04-02] MEDS: (Lantus) Insulin Glargine, Recombinant SC SCH ×2 (09:15→21:37)
--- NOTE | 2017-04-02 09:51 | US ---
Date of procedure: 04/01/2017 Procedure: Ultrasound guidance for vascular access HISTORY: Infection requiring long-term IV antibiotics TECHNIQUE: Following informed consent and procedure time-out, the patient placed supine on the interventional table and the right arm prepped and draped in the usual sterile fashion. Ultrasound showed a patent and compressible basilic vein. After the skin was anesthetized with lidocaine, the basilic vein was accessed with micro micropuncture technique using ultrasound guidance. An image documenting ultrasound guidance for vascular access was permanently saved. IMPRESSION: Ultrasound guidance for vascular access for placement of PICC.
--- NOTE | 2017-04-02 09:51 | RAD ---
PROCEDURE: Date of procedure: 04/01/2017 Procedure: 1. Placement of a right arm PICC with ultrasound and fluoroscopic guidance, CPT 11155 2. PICC tip confirmation with spot radiograph and is in the superior vena cava Medications: 1 percent lidocaine Total Fluoro time: 4.6 seconds Radiation: 0.8 MGy EBL: 2 cc HISTORY: Infection requiring long-term IV antibiotics TECHNIQUE: Following informed consent and procedure time-out, the patient was placed supine on the interventional table and the right arm prepped and draped in the usual sterile fashion. Ultrasound showed a patent and compressible right basilic vein. After the skin was anesthetized with lidocaine, the basilic vein was accessed with micro micropuncture technique using ultrasound guidance. A guidewire was then advanced under fluoroscopic guidance into the superior vena cava. An image documenting ultrasound guidance for vascular access was permanently saved. The length of the single-lumen 4 Romanian PICC was trimmed to 35 centimeters and advanced through a peel-away sheath. The PICC was position with tip of PICC confirm a spot radiograph the superior vena cava. The PICC was secured to the patient's skin. The PICC was flushed. A biopatch and sterile dressing was applied. IMPRESSION: Placement of a single-lumen 4 Romanian PICC trimmed to 35 centimeters via right basilic vein. The tip of the PICC is confirmed with spot radiograph and is in the superior vena cava.
--- NOTE | 2017-04-02 10:22 | CP.PCM.PN ---
<Kenzie Leary - Last Filed: 04/02/17 11:14> Subjective - Date & Time of Evaluation Date of Evaluation: 04/02/17 Time of Evaluation: 10:21 - Subjective Subjective: Podiatry Progress Note for Dr. Malik 51 year old male was seen at bedside concerning right foot dry gangrene. Patient appears to be resting comfortably in his bed and is AAOx3. Patient is in NAD and denies of any acute overnight events. States that today he is going for an angio. Patient denies of having any F/N/V/C/SOB/CP. Denies any pain to his RLE. Objective - Vital Signs/Intake and Output Vital Signs (last 24 hours): Temp Pulse Resp BP Pulse Ox 98.0 F 87 20 132/87 98 04/02/17 08:00 04/02/17 08:00 04/02/17 08:00 04/02/17 09:05 04/02/17 08:00 Intake and Output: 04/02/17 04/02/17 06:59 18:59 Intake Total 900 Output Total 800 Balance 100 - Medications Medications: Current Medications Acetaminophen (Tylenol 325mg Tab) 650 mg PO Q6 PRN PRN Reason: Pain, Mild (1-3) Last Admin: 04/01/17 21:08 Dose: 650 mg Carvedilol (Coreg) 25 mg PO BID [facility] Stop: 04/02/17 15:00 Last Admin: 04/02/17 09:05 Dose: 25 mg Carvedilol (Coreg) 25 mg PO BID [facility] Clopidogrel Bisulfate (Plavix) 75 mg PO DAILY [facility] Last Admin: 04/02/17 09:05 Dose: 75 mg Enoxaparin Sodium (Lovenox) 40 mg SC DAILY [facility] Last Admin: 04/01/17 09:28 Dose: 40 mg Gabapentin (Neurontin) 300 mg PO TID [facility] Last Admin: 04/02/17 09:05 Dose: 300 mg Piperacillin Sod/Tazobactam (Sod 3.375 gm/ Sodium Chloride) 100 mls @ 100 mls/ hr IVPB Q6H [facility] Last Admin: 04/02/17 05:45 Dose: 100 mls/hr Insulin Aspart (Novolog) 0 unit SC ACHS [facility] PRN Reason: Protocol Last Admin: 04/02/17 07:50 Dose: Not Given Insulin Glargine (Lantus) 30 unit SC Q12 [facility] Last Admin: 04/02/17 09:15 Dose: Not Given Lactic Acid (Lac-Hydrin 12% Lotion (225 G)) 4 gm EXT BID [facility] Last Admin: 04/02/17 09:15 Dose: Not Given Losartan Potassium (Cozaar) 25 mg PO DAILY [facility] Last Admin: 04/02/17 09:05 Dose: 25 mg Multivitamins/Minerals (Therapeutic-M Tab) 1 tab PO DAILY [facility] Last Admin: 04/02/17 09:04 Dose: 1 tab Ondansetron HCl (Zofran Tab) 4 mg PO Q8H PRN PRN Reason: Nausea/Vomiting Oxycodone/Acetaminophen (Percocet 5/325 Mg Tab) 2 tab PO Q4H PRN PRN Reason: Pain, moderate (4-7) Stop: 04/03/17 08:09 Last Admin: 04/02/17 09:03 Dose: 2 tab Rosuvastatin Calcium (Crestor) 5 mg PO HS [facility] Last Admin: 04/01/17 21:08 Dose: 5 mg Sennosides (Senokot Tab) 8.6 mg PO DAILY [facility] Last Admin: 04/02/17 09:04 Dose: 8.6 mg Thiamine HCl (Vitamin B1 Tab) 100 mg PO DAILY [facility] Last Admin: 04/02/17 09:04 Dose: 100 mg Zolpidem Tartrate (Ambien) 5 mg PO HS PRN PRN Reason: Insomnia Last Admin: 04/01/17 21:08 Dose: 5 mg - Labs Labs: 03/30/17 07:05 03/30/17 05:10 PT 12.8 SECONDS (9.7-12.2) H 04/01/17 22:20 INR 1.1 04/01/17 22:20 APTT 35 SECONDS (21-34) H 04/01/17 22:20 - Constitutional Appears: Well, Non-toxic, No Acute Distress - Extremities Exam Additional comments: Right lower extremity focused. Left leg above knee amputation noted. Dressings are clean, dry, and intact. VASC: DP and PT pulses non-palpable. Temperature gradient runs cool to cold from proximal leg to distal foot, outside acceptable limits. Absent capillary digital refill time to 4th digit, 3 digits capillary refill time <3 seconds. NEURO: Protective sensation grossly diminished. DERM: Full thickness ulceration measuring approximately 6cm x 2.8 cm with 85% necrotic 15% fibrotic wound base, periwound is hyperkeratotic. No malodor, no drainage, no acute signs of infection noted. 4th digit presents with duskiness. Ortho: No tenderness to palpation noted. Pedal muscle strength graded 5/5 in all 4 major muscle groups. - Neurological Exam Neurological Exam: Alert, Awake, Oriented x3 - Psychiatric Exam Psychiatric exam: Normal Affect, Normal Mood Assessment and Plan - Assessment and Plan (Free Text) Assessment: 51 year old male with full thickness lateral foot ulceration secondary to PVD. Plan: Patient was evaluated Discussed with attending, Dr. Malik Chart, labs, and vitals reviewed - afebrile Right foot ulcer site cleansed with sterile saline, dressed with betadine and DSD. Continue pain medications per primary Continue IV abx X-rays reviewed Angiogram results: severe stenosis of common femoral artery; heavily calcified popliteal artery with diffuse moderate stenosis, Anterior tibial artery heavily calcified, PT artery is occluded, Peroneal artery shoes runoff Patient for angio today with [facility] will follow patient while in-house <Bandar Malik - Last Filed: 04/02/17 21:16> Objective - Vital Signs/Intake and Output Vital Signs (last 24 hours): Temp Pulse Resp BP Pulse Ox 98.0 F 87 20 134/80 98 04/02/17 08:00 04/02/17 08:00 04/02/17 08:00 04/02/17 17:23 04/02/17 08:00 - Medications Medications: Current Medications Acetaminophen (Tylenol 325mg Tab) 650 mg PO Q6 PRN PRN Reason: Pain, Mild (1-3) Last Admin: 04/02/17 20:19 Dose: 650 mg Carvedilol (Coreg) 25 mg PO BID [facility] Last Admin: 04/02/17 17:23 Dose: 25 mg Clopidogrel Bisulfate (Plavix) 75 mg PO DAILY [facility] Last Admin: 04/02/17 09:05 Dose: 75 mg Enoxaparin Sodium (Lovenox) 40 mg SC DAILY [facility] Last Admin: 04/01/17 09:28 Dose: 40 mg Gabapentin (Neurontin) 300 mg PO TID [facility] Last Admin: 04/02/17 17:24 Dose: 300 mg Piperacillin Sod/Tazobactam (Sod 3.375 gm/ Sodium Chloride) 100 mls @ 100 mls/ hr IVPB Q6H [facility] Last Admin: 04/02/17 17:21 Dose: 100 mls/hr Insulin Aspart (Novolog) 0 unit SC ACHS [facility] PRN Reason: Protocol Last Admin: 04/02/17 17:23 Dose: Not Given Insulin Glargine (Lantus) 30 unit SC Q12 [facility] Last Admin: 04/02/17 09:15 Dose: Not Given Lactic Acid (Lac-Hydrin 12% Lotion (225 G)) 4 gm EXT BID [facility] Last Admin: 04/02/17 09:15 Dose: Not Given Losartan Potassium (Cozaar) 25 mg PO DAILY [facility] Last Admin: 04/02/17 09:05 Dose: 25 mg Multivitamins/Minerals (Therapeutic-M Tab) 1 tab PO DAILY [facility] Last Admin: 04/02/17 09:04 Dose: 1 tab Ondansetron HCl (Zofran Tab) 4 mg PO Q8H PRN PRN Reason: Nausea/Vomiting Oxycodone/Acetaminophen (Percocet 5/325 Mg Tab) 2 tab PO Q4H PRN PRN Reason: Pain, moderate (4-7) Stop: 04/03/17 08:09 Last Admin: 04/02/17 17:27 Dose: 2 tab Rosuvastatin Calcium (Crestor) 5 mg PO HS [facility] Last Admin: 04/01/17 21:08 Dose: 5 mg Sennosides (Senokot Tab) 8.6 mg PO DAILY [facility] Last Admin: 04/02/17 09:04 Dose: 8.6 mg Thiamine HCl (Vitamin B1 Tab) 100 mg PO DAILY [facility] Last Admin: 04/02/17 09:04 Dose: 100 mg Vitamin A (Vitamin A & D Oint Ud Foilpak) 1 ea TOP BID [facility] Last Admin: 04/02/17 17:28 Dose: 1 ea Zolpidem Tartrate (Ambien) 5 mg PO HS PRN PRN Reason: Insomnia Last Admin: 04/01/17 21:08 Dose: 5 mg - Labs Labs: 03/30/17 07:05 03/30/17 05:10 PT 12.8 SECONDS (9.7-12.2) H 04/01/17 22:20 INR 1.1 04/01/17 22:20 APTT 35 SECONDS (21-34) H 04/01/17 22:20 Assessment and Plan - Assessment and Plan (Free Text) Plan: Pt seen at bedside this PM . agree with above findings . Labs and chart reviewed . Discussed with Dr Fernández .Needs Bypass ./DR MALIK
[2017-04-02] MEDS ORDERED: Lidocaine 2% Inj (20ml) ONE (14:30)
[2017-04-02] MEDS ORDERED: Midazolam 2 MG/2 ML VIAL ONE ×2 (14:48→15:19)
[2017-04-02] MEDS ORDERED: Iodixanol 320 MG/ML 200 ML BOTTLE IV ONE (14:49)
--- NOTE | 2017-04-02 15:59 | PCM.SURG1 ---
Surgeon's Initial Post Op Note - Surgeon's Notes Surgeon: Dr. Fernández [employer]: None Pre-Operative Diagnosis: Gangrene of right foot Operative Findings: occluded SFA; for details see op note Post-Operative Diagnosis: as above Operation Performed: R.Fem angio w/ US guidance puncture Specimen/Specimens Removed: none Estimated Blood Loss: EBL {In ML}: 50 Drains Used: No Drains Date of Surgery/Procedure: 04/02/17 Time of Surgery/Procedure: 15:58
[2017-04-02] MEDS: Vitamins A & D Oint UD Foilpak TOP SCH (17:28)
--- NOTE | 2017-04-02 22:27 | CP.PCM.PN ---
Subjective - Date & Time of Evaluation Date of Evaluation: 04/02/17 Time of Evaluation: 18:35 - Subjective Subjective: Pt had angiogram done, pt cannot benifit from any angiographic modality, his right foot wound is worsening with impending gangrene Objective - Vital Signs/Intake and Output Vital Signs (last 24 hours): Temp Pulse Resp BP Pulse Ox 98.0 F 87 20 134/80 98 04/02/17 08:00 04/02/17 08:00 04/02/17 08:00 04/02/17 17:23 04/02/17 08:00 - Medications Medications: Current Medications Acetaminophen (Tylenol 325mg Tab) 650 mg PO Q6 PRN PRN Reason: Pain, Mild (1-3) Last Admin: 04/02/17 20:19 Dose: 650 mg Carvedilol (Coreg) 25 mg PO BID [facility] Last Admin: 04/02/17 17:23 Dose: 25 mg Clopidogrel Bisulfate (Plavix) 75 mg PO DAILY [facility] Last Admin: 04/02/17 09:05 Dose: 75 mg Enoxaparin Sodium (Lovenox) 40 mg SC DAILY [facility] Last Admin: 04/01/17 09:28 Dose: 40 mg Gabapentin (Neurontin) 300 mg PO TID [facility] Last Admin: 04/02/17 17:24 Dose: 300 mg Piperacillin Sod/Tazobactam (Sod 3.375 gm/ Sodium Chloride) 100 mls @ 100 mls/ hr IVPB Q6H [facility] Last Admin: 04/02/17 22:00 Dose: 100 mls/hr Insulin Aspart (Novolog) 0 unit SC ACHS [facility] PRN Reason: Protocol Last Admin: 04/02/17 21:37 Dose: Not Given Insulin Glargine (Lantus) 30 unit SC Q12 [facility] Last Admin: 04/02/17 21:37 Dose: Not Given Lactic Acid (Lac-Hydrin 12% Lotion (225 G)) 4 gm EXT BID [facility] Last Admin: 04/02/17 21:36 Dose: Not Given Losartan Potassium (Cozaar) 25 mg PO DAILY [facility] Last Admin: 04/02/17 09:05 Dose: 25 mg Multivitamins/Minerals (Therapeutic-M Tab) 1 tab PO DAILY [facility] Last Admin: 04/02/17 09:04 Dose: 1 tab Ondansetron HCl (Zofran Tab) 4 mg PO Q8H PRN PRN Reason: Nausea/Vomiting Oxycodone/Acetaminophen (Percocet 5/325 Mg Tab) 2 tab PO Q4H PRN PRN Reason: Pain, moderate (4-7) Stop: 04/03/17 08:09 Last Admin: 04/02/17 21:42 Dose: 2 tab Rosuvastatin Calcium (Crestor) 5 mg PO HS [facility] Last Admin: 04/02/17 21:59 Dose: 5 mg Sennosides (Senokot Tab) 8.6 mg PO DAILY [facility] Last Admin: 04/02/17 09:04 Dose: 8.6 mg Thiamine HCl (Vitamin B1 Tab) 100 mg PO DAILY [facility] Last Admin: 04/02/17 09:04 Dose: 100 mg Vitamin A (Vitamin A & D Oint Ud Foilpak) 1 ea TOP BID [facility] Last Admin: 04/02/17 17:28 Dose: 1 ea Zolpidem Tartrate (Ambien) 5 mg PO HS PRN PRN Reason: Insomnia Last Admin: 04/02/17 21:36 Dose: 5 mg - Labs Labs: 03/30/17 07:05 03/30/17 05:10 PT 12.8 SECONDS (9.7-12.2) H 04/01/17 22:20 INR 1.1 04/01/17 22:20 APTT 35 SECONDS (21-34) H 04/01/17 22:20 - Constitutional Appears: No Acute Distress - Head Exam Head Exam: ATRAUMATIC, NORMAL INSPECTION, NORMOCEPHALIC - Eye Exam Eye Exam: EOMI, Normal appearance, PERRL Pupil Exam: NORMAL ACCOMODATION, PERRL - Respiratory Exam Respiratory Exam: Clear to Ausculation Bilateral, NORMAL BREATHING PATTERN - Cardiovascular Exam Cardiovascular Exam: REGULAR RHYTHM, +S1, +S2. absent: Murmur - GI/Abdominal Exam GI & Abdominal Exam: Soft, Normal Bowel Sounds. absent: Tenderness - Extremities Exam Extremities Exam: Joint Swelling, Pedal Edema, Tenderness. absent: Calf Tenderness, Full ROM, Normal Capillary Refill, Normal Inspection - Neurological Exam Neurological Exam: Abnormal Gait, Alert, Awake Assessment and Plan (1) Diabetic foot infection Status: Acute (2) Gangrene of right foot Status: Acute (3) Above knee amputation of left lower extremity Status: Acute (4) HTN (hypertension) Status: Acute (5) COPD (chronic obstructive pulmonary disease) Status: Chronic (6) Diabetes mellitus Status: Chronic (7) PAD (peripheral artery disease) Status: Chronic
[2017-04-03] MEDS: Oxycodone/Acetaminophen 5/325 mg Tab PO PRN ×4 (02:12→20:55)
[2017-04-03] MEDS: Piperacillin/Tazobact 3.375 GM in Sodium Chloride 100 ML IVPB SCH ×4 (05:02→22:39)
[2017-04-03] MEDS: (Novolog) Insulin Aspart, Recombinant 100 u/ml 10 ml vial SC SCH ×4 (07:41→21:30)
[2017-04-03] MEDS: (Lantus) Insulin Glargine, Recombinant SC SCH ×2 (09:18→21:43)
[2017-04-03] MEDS: Vitamins A & D Oint UD Foilpak TOP SCH ×2 (09:38→18:35)
[2017-04-03] MEDS: Multivitamin With Minerals Tab PO SCH (09:38)
[2017-04-03] MEDS: Ammonium Lactate 12% Lotion (225 g) EXT SCH ×2 (09:42→21:43)
[2017-04-03] MEDS: Lidocaine 5% Patch TD SCH (10:35)
--- NOTE | 2017-04-03 11:49 | VAS ---
DATE: 04/02/2017 PREOPERATIVE DIAGNOSIS: Gangrene of right foot. POSTOPERATIVE DIAGNOSIS: Gangrene of right foot PROCEDURE: Right femoral angiogram with ultrasound-guided puncture, micropuncture technique. SURGEON: Ridge Fernández MD PET CARE ATTENDANT: None. ANESTHESIOLOGIST: Mr. Ignacio. ANESTHESIA: Local sedation. INDICATIONS: A 51-year-old male diabetic, previous left above knee amputation presents with gangrene of the right foot, previous failed intervention in the right leg. OPERATIVE FINDINGS: Using ultrasound guidance, the right common femoral artery was punctured and we attempted to direct the guidewire into the occluded superficial femoral artery. Despite the fact that there was , we were unable to advance the catheter using Glidewire, wire of further varieties successfully and we subsequently abandoned attempts to placing a catheter through the occlusion. We then took an angiogram showing that the common femoral and profunda femoral arteries were widely patent. The superficial femoral artery was occluded, reconstituted at David's canal. The popliteal artery below the knee was of adequate caliber and size. The trifurcation was intact, we were below the posterior tibial and gurney were occluded. The anterior tibial was the major runoff into the foot. Subsequent to this, pressure was applied in the right groin. The procedure was terminated. The operation carried out was right femoral angiogram with micropuncture technique and ultrasound-guided puncture. Ridge Fernández Jr., MD
--- NOTE | 2017-04-03 13:37 | CP.PCM.CON ---
History of Present Illness - History of Present Illness History of Present Illness: 50-year-old gentleman with prior history significant for hypertension, diabetes , and hyperlipidemia. Apparently with peripheral vascular disease and percutaneous intervention and needed further amputation. BKA done. On the other hand, he had diagnosis of colovesicular fistula that was documented by CAT scan by thickening of the sigmoid and the bladder in addition a cystoscopy documented the fistula. Echo 01/26 NL LV no mild PAH, for possible amputation , DVT on Doppler Review of Systems - Constitutional Constitutional: Anorexia, Weakness - EENT Eyes: absent: Discharge Ears: absent: Ear Discharge, Dizziness Nose/Mouth/Throat: absent: Bleeding Gums - Cardiovascular Cardiovascular: absent: Chest Pain, Diaphoresis, Orthopnea, Syncope - Respiratory Respiratory: absent: Cough, Dyspnea, Hemoptysis - Gastrointestinal Gastrointestinal: Diarrhea, Vomiting. 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 - MUSCULOSKELETAL/RHEUMATOLOGICAL Hx Falls: No - GASTROINTESTINAL Hx Diverticulitis: Yes Hx Gastritis: Yes - GENITOURINARY/GYNECOLOGICAL Hx Genitourinary Disorders: Yes Hx Urinary Tract Infection: Yes Other/Comment: PT STATES HE HAS BROWN URINE AND SOME FECAL MATERIAL IN HIS URINE. - PSYCHIATRIC Hx Substance Use: No - SURGICAL HISTORY Hx Surgeries: Yes Hx Amputation: Yes (LEFT BKA) Hx Angiogram: Yes Hx Cardiac Catheterization: Yes Hx Femoral-Popliteal Bypass Graft: Yes (X 3) Hx Vascular Surgery: Yes Other/Comment: Vascular bypass surgery femoral bilateral 2011,LT. BELOW KNEE AMPUTATION, right 5th toe amputation - ANESTHESIA Hx Anesthesia: Yes Hx Anesthesia Reactions: No Hx Malignant Hyperthermia: No Meds Allergies/Adverse Reactions: Allergies Allergy/AdvReac Type Severity Reaction Status Date / Time No Known Allergies Allergy Verified 03/27/17 14:16 - Medications Medications: Current Medications Acetaminophen (Tylenol 325mg Tab) 650 mg PO Q6 PRN PRN Reason: Pain, Mild (1-3) Last Admin: 04/03/17 13:34 Dose: 650 mg Carvedilol (Coreg) 25 mg PO BID ON [facility] OF [facility] Last Admin: 04/03/17 09:37 Dose: 25 mg Clopidogrel Bisulfate (Plavix) 75 mg PO DAILY ON [facility] Last Admin: 04/03/17 09:38 Dose: 75 mg Enoxaparin Sodium (Lovenox) 40 mg SC DAILY ON [facility] Last Admin: 04/01/17 09:28 Dose: 40 mg Gabapentin (Neurontin) 300 mg PO TID ON [facility] OF [facility] Last Admin: 04/03/17 13:34 Dose: 300 mg Piperacillin Sod/Tazobactam (Sod 3.375 gm/ Sodium Chloride) 100 mls @ 100 mls/ hr IVPB Q6H ON [facility] Last Admin: 04/03/17 10:53 Dose: 100 mls/hr Insulin Aspart (Novolog) 0 unit SC ACHS ON [facility] PRN Reason: Protocol Last Admin: 04/03/17 10:54 Dose: Not Given Insulin Glargine (Lantus) 30 unit SC Q12 [facility] Last Admin: 04/03/17 09:18 Dose: Not Given Lactic Acid (Lac-Hydrin 12% Lotion (225 G)) 4 gm EXT BID ON [facility] Last Admin: 04/03/17 09:42 Dose: Not Given Lidocaine (Lidoderm) 1 ea TD DAILY [facility] Last Admin: 04/03/17 10:35 Dose: 1 ea Losartan Potassium (Cozaar) 25 mg PO DAILY [facility] Last Admin: 04/03/17 09:38 Dose: 25 mg Multivitamins/Minerals (Therapeutic-M Tab) 1 tab PO DAILY [facility] Last Admin: 04/03/17 09:38 Dose: 1 tab Mupirocin (Bactroban Ointment) 0 gm TOP BID ON [facility] Last Admin: 04/03/17 10:35 Dose: 1 applic Ondansetron HCl (Zofran Tab) 4 mg PO Q8H PRN PRN Reason: Nausea/Vomiting Rosuvastatin Calcium (Crestor) 5 mg PO HS ON [facility] Last Admin: 04/02/17 21:59 Dose: 5 mg Sennosides (Senokot Tab) 8.6 mg PO DAILY ON [facility] Last Admin: 02/22/18 09:37 Dose: 8.6 mg Thiamine HCl (Vitamin B1 Tab) 100 mg PO DAILY ON [facility] Last Admin: 04/03/17 09:38 Dose: 100 mg Vitamin A (Vitamin A & D Oint Ud Foilpak) 1 ea TOP BID ON [facility] Last Admin: 04/03/17 09:38 Dose: 1 ea Zolpidem Tartrate (Ambien) 5 mg PO HS PRN PRN Reason: Insomnia Last Admin: 04/02/17 21:36 Dose: 5 mg Physical Exam - Constitutional Appears: Non-toxic - Head Exam Head Exam: ATRAUMATIC - Eye Exam Eye Exam: EOMI - ENT Exam ENT Exam: Mucous Membranes Moist - Neck Exam Neck exam: Negative for: Lymphadenopathy, Thyromegaly - Respiratory Exam Respiratory Exam: Clear to Auscultation Bilateral. absent: Rales - Cardiovascular Exam Cardiovascular Exam: REGULAR RHYTHM, Systolic Murmur - GI/Abdominal Exam GI & Abdominal Exam: Normal Bowel Sounds. absent: Organomegaly - Rectal Exam Rectal Exam: Deferred - Extremities Exam Extremities exam: Positive for: normal capillary refill. Negative for: calf tenderness - Neurological Exam Neurological exam: Alert, Oriented x3 - Psychiatric Exam Psychiatric exam: Normal Mood - Skin Skin Exam: Dry Results - Vital Signs Recent Vital Signs: Last Vital Signs Temp 98.9 F 04/03/17 08:44 Pulse 84 04/03/17 08:44 Resp 20 04/03/17 08:44 BP 113/77 04/03/17 09:37 Pulse Ox 96 04/03/17 08:44 - Labs Result Diagrams: 03/30/17 07:05 03/30/17 05:10 Labs: Laboratory Results - last 24 hr 04/02/17 04/02/17 04/03/17 16:57 21:28 07:37 POC Glucose (mg/dL) 156 H 122 H 136 H Blood Type Antibody Screen 04/03/17 04/03/17 08:03 11:33 POC Glucose (mg/dL) 105 Blood Type A POSITIVE Antibody Screen Negative Assessment & Plan (1) Pre-procedural cardiovascular examination Status: Acute (2) Atherosclerosis of left lower extremity with gangrene Status: Acute (3) Diabetic foot infection Status: Acute (4) HTN (hypertension) Status: Chronic (5) Diabetes mellitus Status: Chronic
--- NOTE | 2017-04-03 14:03 | CP.PCM.PN ---
Subjective - Date & Time of Evaluation Date of Evaluation: 04/03/17 Time of Evaluation: 06:55 - Subjective Subjective: Vascular surgery progress note for Dr. Isacc Vogt, PGY-1 Pt S & E at bedside. Pt reports some pain in RLE overnight, no problems. Objective - Vital Signs/Intake and Output Vital Signs (last 24 hours): Temp Pulse Resp BP Pulse Ox 98.9 F 84 20 113/77 96 04/03/17 08:44 04/03/17 08:44 04/03/17 08:44 04/03/17 09:37 04/03/17 08:44 Intake and Output: 04/03/17 04/03/17 06:59 18:59 Intake Total 400 Output Total 650 Balance -250 - Medications Medications: Current Medications Acetaminophen (Tylenol 325mg Tab) 650 mg PO Q6 PRN PRN Reason: Pain, Mild (1-3) Last Admin: 04/03/17 13:34 Dose: 650 mg Carvedilol (Coreg) 25 mg PO BID [facility] Last Admin: 04/03/17 09:37 Dose: 25 mg Clopidogrel Bisulfate (Plavix) 75 mg PO DAILY [facility] Last Admin: 04/03/17 09:38 Dose: 75 mg Gabapentin (Neurontin) 300 mg PO TID [facility] Last Admin: 04/03/17 13:34 Dose: 300 mg Piperacillin Sod/Tazobactam (Sod 3.375 gm/ Sodium Chloride) 100 mls @ 100 mls/ hr IVPB Q6H [facility] Last Admin: 04/03/17 10:53 Dose: 100 mls/hr Heparin Sodium/Sodium Chloride (Heparin 31374 Units/250ml 1/2 Normal Saline) 25 ,000 units in 250 mls @ 12.737 mls/hr IV .[id number] PRN; Protocol; 18 UNITS/KG/HR PRN Reason: ADJUST RATE PER PROTOCOL Insulin Aspart (Novolog) 0 unit SC ACHS [facility] PRN Reason: Protocol Last Admin: 04/03/17 10:54 Dose: Not Given Insulin Glargine (Lantus) 30 unit SC Q12 [facility] Last Admin: 04/03/17 09:18 Dose: Not Given Lactic Acid (Lac-Hydrin 12% Lotion (225 G)) 4 gm EXT BID [facility] Last Admin: 04/03/17 09:42 Dose: Not Given Lidocaine (Lidoderm) 1 ea TD DAILY [facility] Last Admin: 04/03/17 10:35 Dose: 1 ea Losartan Potassium (Cozaar) 25 mg PO DAILY [facility] Last Admin: 04/03/17 09:38 Dose: 25 mg Multivitamins/Minerals (Therapeutic-M Tab) 1 tab PO DAILY [facility] Last Admin: 04/03/17 09:38 Dose: 1 tab Mupirocin (Bactroban Ointment) 0 gm TOP BID [facility] Last Admin: 04/03/17 10:35 Dose: 1 applic Ondansetron HCl (Zofran Tab) 4 mg PO Q8H PRN PRN Reason: Nausea/Vomiting Oxycodone/Acetaminophen (Percocet 5/325 Mg Tab) 2 tab PO Q6H PRN PRN Reason: Pain, severe (8-10) Stop: 04/06/17 13:41 Rosuvastatin Calcium (Crestor) 5 mg PO HS [facility] Last Admin: 04/02/17 21:59 Dose: 5 mg Sennosides (Senokot Tab) 8.6 mg PO DAILY [facility] Last Admin: 04/03/17 09:37 Dose: 8.6 mg Thiamine HCl (Vitamin B1 Tab) 100 mg PO DAILY [facility] Last Admin: 04/03/17 09:38 Dose: 100 mg Vitamin A (Vitamin A & D Oint Ud Foilpak) 1 ea TOP BID [facility] Last Admin: 04/03/17 09:38 Dose: 1 ea Zolpidem Tartrate (Ambien) 5 mg PO HS PRN PRN Reason: Insomnia Last Admin: 04/02/17 21:36 Dose: 5 mg - Labs Labs: 03/30/17 07:05 03/30/17 05:10 PT 12.8 SECONDS (9.7-12.2) H 04/01/17 22:20 INR 1.1 04/01/17 22:20 APTT 35 SECONDS (21-34) H 04/01/17 22:20 - Constitutional Appears: Non-toxic, No Acute Distress - Head Exam Head Exam: ATRAUMATIC, NORMAL INSPECTION, NORMOCEPHALIC - Eye Exam Eye Exam: EOMI, Normal appearance - Neck Exam Neck Exam: Full ROM, Normal Inspection - Respiratory Exam Respiratory Exam: NORMAL BREATHING PATTERN - Cardiovascular Exam Cardiovascular Exam: REGULAR RHYTHM, +S1, +S2 - Extremities Exam Additional comments: L AKA - Neurological Exam Neurological Exam: Alert, Awake, CN II-XII Intact, Oriented x3 - Psychiatric Exam Psychiatric exam: Normal Affect, Normal Mood - Skin Skin Exam: Dry, Intact, Normal Color, Warm Assessment and Plan - Assessment and Plan (Free Text) Assessment: 52M w/gangrene of Right foot POD#1 s/p R femoral angiography w/US guided puncture Plan: Acute DVT Started heparin drip w/bolus Cont IV Abx Pain control Further mgmgt as per primary team Further recommendations as per attending JOEL attending Torie, PGY-1
[2017-04-03] MEDS: Heparin25000 units/250ml 1/2NS 25,000 UNITS/250 ML BAG IV PRN (14:40)
--- NOTE | 2017-04-03 15:38 | VASCLAB ---
PROCEDURE: Right Lower Extremity Vein mapping. HISTORY: Vein mapping, peripheral artery disease, pre-op bypass PRIORS: None. TECHNIQUE: Right common femoral, femoral, popliteal and posterior tibial, peroneal and great saphenous veins were evaluated. Flow was assessed with color Doppler, compressibility, assessment of phasic flow and augmentation response. Report prepared by DAGO Ibarra, RVT FINDINGS: RIGHT: 1. Common Femoral Vein: Compressibility - Fully compressible: Thrombus - None : Flow - Phasic: Augmentation -Normal: Reflux - None. 2. Femoral Vein:Compressibility - Incompressible: Thrombus - Acute 3. Popliteal Vein: Compressibility - Incompressible: Thrombus - Acute 4. Posterior Tibial Vein: Compressibility - Incompressible: Thrombus - Acute 5. Peroneal Vein:Compressibility - Incompressible: Thrombus - Acute 6. Greater Saphenous Vein: Compressibility - Fully compressible: Thrombus - None 6.1. Thigh - Proximal Diameter: 0.77cm. Mid Diameter: 0.61cm. Distal Diameter: 0.64cm. 6.2. Calf - Proximal Diameter: 0.45cm. Mid Diameter:0.48cm. Distal Diameter: 0.52cm 6.3. Ankle - Diameter: 0.52cm 7. [place] Saphenous Vein: Compressibility - Incompressible: thrombus - Acute OTHER FINDINGS: Findings were reported by the mri special procedures technologist, chava Streeter at 1:20 p.m. IMPRESSION: Totally occluding acute deep vein thrombosis, of the right femoral, popliteal, posterior tibial and peroneal veins. Superficial phlebitis of the right short saphenous vein.
--- NOTE | 2017-04-03 19:41 | CP.PCM.PN ---
Subjective - Date & Time of Evaluation Date of Evaluation: 04/03/17 Time of Evaluation: 18:00 - Subjective Subjective: pt seen and examined today pt is for bypass on LE by Dr. Calero Objective - Vital Signs/Intake and Output Vital Signs (last 24 hours): Temp Pulse Resp BP Pulse Ox 98.7 F 74 20 127/78 96 04/03/17 16:00 04/03/17 16:00 04/03/17 16:00 04/03/17 18:36 04/03/17 16:00 Intake and Output: 04/03/17 04/04/17 18:59 06:59 Intake Total 550 Balance 550 - Medications Medications: Current Medications Acetaminophen (Tylenol 325mg Tab) 650 mg PO Q6 PRN PRN Reason: Pain, Mild (1-3) Last Admin: 04/03/17 18:40 Dose: 650 mg Carvedilol (Coreg) 25 mg PO BID [facility] Last Admin: 04/03/17 18:36 Dose: 25 mg Clopidogrel Bisulfate (Plavix) 75 mg PO DAILY [facility] Last Admin: 04/03/17 09:38 Dose: 75 mg Gabapentin (Neurontin) 300 mg PO TID [facility] Last Admin: 04/03/17 18:35 Dose: 300 mg Piperacillin Sod/Tazobactam (Sod 3.375 gm/ Sodium Chloride) 100 mls @ 100 mls/ hr IVPB Q6H [facility] Last Admin: 04/03/17 18:48 Dose: 100 mls/hr Heparin Sodium/Sodium Chloride (Heparin 02493 Units/250ml 1/2 Normal Saline) 25 ,000 units in 250 mls @ 12.737 mls/hr IV .[id number] PRN; Protocol; 18 UNITS/KG/HR PRN Reason: ADJUST RATE PER PROTOCOL Last Admin: 04/03/17 14:40 Dose: 18 units/kg/hr, 12.737 mls/hr Insulin Aspart (Novolog) 0 unit SC ACHS [facility] PRN Reason: Protocol Last Admin: 04/03/17 18:44 Dose: Not Given Insulin Glargine (Lantus) 30 unit SC Q12 [facility] Last Admin: 04/03/17 09:18 Dose: Not Given Lactic Acid (Lac-Hydrin 12% Lotion (225 G)) 4 gm EXT BID [facility] Last Admin: 02/22/18 09:42 Dose: Not Given Lidocaine (Lidoderm) 1 ea TD DAILY [facility] Last Admin: 04/03/17 10:35 Dose: 1 ea Losartan Potassium (Cozaar) 25 mg PO DAILY [facility] Last Admin: 04/03/17 09:38 Dose: 25 mg Multivitamins/Minerals (Therapeutic-M Tab) 1 tab PO DAILY [facility] Last Admin: 04/03/17 09:38 Dose: 1 tab Mupirocin (Bactroban Ointment) 0 gm TOP BID [facility] Last Admin: 04/03/17 18:37 Dose: 1 applic Ondansetron HCl (Zofran Tab) 4 mg PO Q8H PRN PRN Reason: Nausea/Vomiting Oxycodone/Acetaminophen (Percocet 5/325 Mg Tab) 2 tab PO Q6H PRN PRN Reason: Pain, severe (8-10) Stop: 04/06/17 13:41 Last Admin: 04/03/17 14:19 Dose: 2 tab Rosuvastatin Calcium (Crestor) 5 mg PO HS [facility] Last Admin: 04/02/17 21:59 Dose: 5 mg Sennosides (Senokot Tab) 8.6 mg PO DAILY [facility] Last Admin: 04/03/17 09:37 Dose: 8.6 mg Thiamine HCl (Vitamin B1 Tab) 100 mg PO DAILY [facility] Last Admin: 04/03/17 09:38 Dose: 100 mg Vitamin A (Vitamin A & D Oint Ud Foilpak) 1 ea TOP BID [facility] Last Admin: 04/03/17 18:35 Dose: 1 ea Zolpidem Tartrate (Ambien) 5 mg PO HS PRN PRN Reason: Insomnia Last Admin: 04/02/17 21:36 Dose: 5 mg - Labs Labs: 03/30/17 07:05 03/30/17 05:10 PT 12.8 SECONDS (9.7-12.2) H 04/01/17 22:20 INR 1.1 04/01/17 22:20 APTT 35 SECONDS (21-34) H 04/01/17 22:20 - Constitutional Appears: No Acute Distress - Head Exam Head Exam: ATRAUMATIC, NORMAL INSPECTION, NORMOCEPHALIC - Eye Exam Eye Exam: EOMI, Normal appearance, PERRL Pupil Exam: NORMAL ACCOMODATION, PERRL - Respiratory Exam Respiratory Exam: Clear to Ausculation Bilateral, NORMAL BREATHING PATTERN - Cardiovascular Exam Cardiovascular Exam: REGULAR RHYTHM, +S1, +S2. absent: Murmur - GI/Abdominal Exam GI & Abdominal Exam: Soft, Normal Bowel Sounds. absent: Tenderness Assessment and Plan (1) Diabetic foot infection Status: Acute (2) Gangrene of right foot Status: Acute (3) Above knee amputation of left lower extremity Status: Acute (4) HTN (hypertension) Status: Chronic (5) COPD (chronic obstructive pulmonary disease) Status: Chronic (6) Diabetes mellitus Status: Chronic (7) PAD (peripheral artery disease) Status: Chronic
[2017-04-03 21:47] LABS: INR 1.1; PROTHROMBIN TIME 12.8 SECONDS (9.7-12.2)
[2017-04-04] MEDS: Piperacillin/Tazobact 3.375 GM in Sodium Chloride 100 ML IVPB SCH ×4 (05:45→23:08)
[2017-04-04] MEDS: Oxycodone/Acetaminophen 5/325 mg Tab PO PRN ×4 (05:45→21:31)
[2017-04-04] MEDS: (Novolog) Insulin Aspart, Recombinant 100 u/ml 10 ml vial SC SCH ×4 (08:03→23:02)
--- NOTE | 2017-04-04 08:21 | CP.PCM.PN ---
Subjective - Date & Time of Evaluation Date of Evaluation: 04/04/17 Time of Evaluation: 08:20 - Subjective Subjective: acute dvt likely precludes any revascularization amputaion likely safest course Objective - Vital Signs/Intake and Output Vital Signs (last 24 hours): Temp Pulse Resp BP Pulse Ox 98.3 F 84 20 125/73 98 04/04/17 00:00 04/04/17 00:00 04/04/17 00:00 04/04/17 00:00 04/04/17 00:00 Intake and Output: 04/04/17 04/04/17 06:59 18:59 Intake Total 801.6 401.6 Output Total 900 850 Balance -98.4 -448.4 - Medications Medications: Current Medications Acetaminophen (Tylenol 325mg Tab) 650 mg PO Q6 PRN PRN Reason: Pain, Mild (1-3) Last Admin: 04/03/17 22:40 Dose: 650 mg Carvedilol (Coreg) 25 mg PO BID [facility] Last Admin: 04/03/17 18:36 Dose: 25 mg Clopidogrel Bisulfate (Plavix) 75 mg PO DAILY [facility] Last Admin: 04/03/17 09:38 Dose: 75 mg Gabapentin (Neurontin) 300 mg PO TID [facility] Last Admin: 04/03/17 18:35 Dose: 300 mg Piperacillin Sod/Tazobactam (Sod 3.375 gm/ Sodium Chloride) 100 mls @ 100 mls/ hr IVPB Q6H [facility] Last Admin: 04/04/17 05:45 Dose: 100 mls/hr Heparin Sodium/Sodium Chloride (Heparin 31118 Units/250ml 1/2 Normal Saline) 25 ,000 units in 250 mls @ 12.737 mls/hr IV .[id number] PRN; Protocol; 18 UNITS/KG/HR PRN Reason: ADJUST RATE PER PROTOCOL Last Admin: 04/03/17 14:40 Dose: 18 units/kg/hr, 12.737 mls/hr Insulin Aspart (Novolog) 0 unit SC ACHS [facility] PRN Reason: Protocol Last Admin: 04/04/17 08:03 Dose: Not Given Insulin Glargine (Lantus) 30 unit SC Q12 [facility] Last Admin: 04/03/17 21:43 Dose: Not Given Lactic Acid (Lac-Hydrin 12% Lotion (225 G)) 4 gm EXT BID [facility] Last Admin: 04/03/17 21:43 Dose: Not Given Lidocaine (Lidoderm) 1 ea TD DAILY [facility] Last Admin: 04/03/17 10:35 Dose: 1 ea Losartan Potassium (Cozaar) 25 mg PO DAILY [facility] Last Admin: 04/03/17 09:38 Dose: 25 mg Multivitamins/Minerals (Therapeutic-M Tab) 1 tab PO DAILY [facility] Last Admin: 04/03/17 09:38 Dose: 1 tab Mupirocin (Bactroban Ointment) 0 gm TOP BID [facility] Last Admin: 04/03/17 18:37 Dose: 1 applic Ondansetron HCl (Zofran Tab) 4 mg PO Q8H PRN PRN Reason: Nausea/Vomiting Oxycodone/Acetaminophen (Percocet 5/325 Mg Tab) 2 tab PO Q6H PRN PRN Reason: Pain, severe (8-10) Stop: 04/06/17 13:41 Last Admin: 04/04/17 05:45 Dose: 2 tab Rosuvastatin Calcium (Crestor) 5 mg PO HS [facility] Last Admin: 04/03/17 21:43 Dose: 5 mg Sennosides (Senokot Tab) 8.6 mg PO DAILY [facility] Last Admin: 04/03/17 09:37 Dose: 8.6 mg Thiamine HCl (Vitamin B1 Tab) 100 mg PO DAILY [facility] Last Admin: 04/03/17 09:38 Dose: 100 mg Vitamin A (Vitamin A & D Oint Ud Foilpak) 1 ea TOP BID [facility] Last Admin: 04/03/17 18:35 Dose: 1 ea Zolpidem Tartrate (Ambien) 5 mg PO HS PRN PRN Reason: Insomnia Last Admin: 04/03/17 21:43 Dose: 5 mg - Labs Labs: 03/30/17 07:05 03/30/17 05:10 PT 12.8 SECONDS (9.7-12.2) H 04/03/17 21:35 INR 1.1 04/03/17 21:35 APTT 78 SECONDS (21-34) H D 04/04/17 04:04
--- NOTE | 2017-04-04 10:43 | CP.PCM.PN ---
Subjective - Date & Time of Evaluation Date of Evaluation: 04/04/17 Time of Evaluation: 10:43 - Subjective Subjective: Podiatry Progress Note for Dr. Malik 51 year old male was seen at bedside concerning right foot dry gangrene. Patient appears to be resting comfortably in his bed and is AAOx3. He states that he has a DVT. Patient denies of having any F/N/V/C/SOB/CP. Objective - Vital Signs/Intake and Output Vital Signs (last 24 hours): Temp Pulse Resp BP Pulse Ox 98.3 F 84 20 125/73 98 04/04/17 00:00 04/04/17 00:00 04/04/17 00:00 04/04/17 00:00 04/04/17 00:00 Intake and Output: 04/04/17 04/04/17 06:59 18:59 Intake Total 801.6 401.6 Output Total 900 850 Balance -98.4 -448.4 - Medications Medications: Current Medications Acetaminophen (Tylenol 325mg Tab) 650 mg PO Q6 PRN PRN Reason: Pain, Mild (1-3) Last Admin: 04/03/17 22:40 Dose: 650 mg Carvedilol (Coreg) 25 mg PO BID [facility] Last Admin: 04/03/17 18:36 Dose: 25 mg Clopidogrel Bisulfate (Plavix) 75 mg PO DAILY [facility] Last Admin: 04/03/17 09:38 Dose: 75 mg Gabapentin (Neurontin) 300 mg PO TID [facility] Last Admin: 04/03/17 18:35 Dose: 300 mg Piperacillin Sod/Tazobactam (Sod 3.375 gm/ Sodium Chloride) 100 mls @ 100 mls/ hr IVPB Q6H [facility] Last Admin: 04/04/17 05:45 Dose: 100 mls/hr Heparin Sodium/Sodium Chloride (Heparin 70592 Units/250ml 1/2 Normal Saline) 25 ,000 units in 250 mls @ 12.737 mls/hr IV .[id number] PRN; Protocol; 18 UNITS/KG/HR PRN Reason: ADJUST RATE PER PROTOCOL Last Admin: 04/03/17 14:40 Dose: 18 units/kg/hr, 12.737 mls/hr Insulin Aspart (Novolog) 0 unit SC ACHS [facility] PRN Reason: Protocol Last Admin: 04/04/17 08:03 Dose: Not Given Insulin Glargine (Lantus) 30 unit SC Q12 [facility] Last Admin: 04/03/17 21:43 Dose: Not Given Lactic Acid (Lac-Hydrin 12% Lotion (225 G)) 4 gm EXT BID [facility] Last Admin: 04/03/17 21:43 Dose: Not Given Lidocaine (Lidoderm) 1 ea TD DAILY [facility] Last Admin: 04/03/17 10:35 Dose: 1 ea Losartan Potassium (Cozaar) 25 mg PO DAILY [facility] Last Admin: 04/03/17 09:38 Dose: 25 mg Multivitamins/Minerals (Therapeutic-M Tab) 1 tab PO DAILY [facility] Last Admin: 04/03/17 09:38 Dose: 1 tab Mupirocin (Bactroban Ointment) 0 gm TOP BID [facility] Last Admin: 04/03/17 18:37 Dose: 1 applic Ondansetron HCl (Zofran Tab) 4 mg PO Q8H PRN PRN Reason: Nausea/Vomiting Oxycodone/Acetaminophen (Percocet 5/325 Mg Tab) 2 tab PO Q6H PRN PRN Reason: Pain, severe (8-10) Stop: 04/06/17 13:41 Last Admin: 04/04/17 05:45 Dose: 2 tab Rosuvastatin Calcium (Crestor) 5 mg PO HS [facility] Last Admin: 04/03/17 21:43 Dose: 5 mg Sennosides (Senokot Tab) 8.6 mg PO DAILY [facility] Last Admin: 04/03/17 09:37 Dose: 8.6 mg Thiamine HCl (Vitamin B1 Tab) 100 mg PO DAILY [facility] Last Admin: 04/03/17 09:38 Dose: 100 mg Vitamin A (Vitamin A & D Oint Ud Foilpak) 1 ea TOP BID [facility] Last Admin: 04/03/17 18:35 Dose: 1 ea Zolpidem Tartrate (Ambien) 5 mg PO HS PRN PRN Reason: Insomnia Last Admin: 04/03/17 21:43 Dose: 5 mg - Labs Labs: 03/30/17 07:05 03/30/17 05:10 PT 12.8 SECONDS (9.7-12.2) H 04/03/17 21:35 INR 1.1 04/03/17 21:35 APTT 78 SECONDS (21-34) H D 04/04/17 04:04 - Constitutional Appears: Well, Non-toxic, No Acute Distress - Extremities Exam Additional comments: Right lower extremity focused. Left leg above knee amputation noted. Dressings are clean, dry, and intact. VASC: DP and PT pulses non-palpable. Temperature gradient runs cool to cold from proximal leg to distal foot, outside acceptable limits. Absent capillary digital refill time to 4th digit, 3 digits capillary refill time <3 seconds. NEURO: Protective sensation grossly diminished. DERM: Full thickness ulceration measuring approximately 6 cm x 2.8 cm with 90% necrotic 10% fibrotic wound base, periwound is hyperkeratotic. No malodor, no drainage, no acute signs of infection noted. 4th digit presents with duskiness. Ortho: No tenderness to palpation noted. - Neurological Exam Neurological Exam: Alert, Awake, Oriented x3 - Psychiatric Exam Psychiatric exam: Normal Affect, Normal Mood Assessment and Plan - Assessment and Plan (Free Text) Assessment: 51 year old male with full thickness lateral foot ulceration secondary to PVD. Plan: Patient was examined and evaluated Discussed with attending, Dr. Malik Chart, labs, and vitals reviewed - afebrile Right foot ulcer site cleansed with sterile saline, dressed with betadine and DSD. Continue pain medications per primary Continue with vascular recs Podiatry will follow patient while in-house
[2017-04-04] MEDS: Ammonium Lactate 12% Lotion (225 g) EXT SCH ×2 (11:11→17:56)
[2017-04-04] MEDS: (Lantus) Insulin Glargine, Recombinant SC SCH ×2 (11:11→21:33)
[2017-04-04] MEDS ORDERED: Aminophylline 25 mg/ml Inj ONE (11:19)
[2017-04-04] MEDS: Multivitamin With Minerals Tab PO SCH (11:19)
[2017-04-04] MEDS: Vitamins A & D Oint UD Foilpak TOP SCH ×2 (11:21→18:02)
[2017-04-04] MEDS: Lidocaine 5% Patch TD SCH (12:39)
[2017-04-04] MEDS: Heparin25000 units/250ml 1/2NS 25,000 UNITS/250 ML BAG IV PRN (14:08)
--- NOTE | 2017-04-04 16:46 | RAD ---
HISTORY: verify left PICC COMPARISON: 01/24/2017 FINDINGS: LUNGS: No active pulmonary disease. PLEURA: No significant pleural effusion identified, no pneumothorax apparent. CARDIOVASCULAR: Normal heart size. Left PICC catheter terminates in the superior vena cava in the region of the cavoatrial junction. OSSEOUS STRUCTURES: No significant abnormalities. VISUALIZED UPPER ABDOMEN: Normal. OTHER FINDINGS: None. IMPRESSION: New left PICC catheter terminates in the SVC in the region of the cavoatrial junction.
--- NOTE | 2017-04-04 19:01 | CARD ---
APPROVED REPORT Protocol: PHARMACOLOGICAL STRESS Test Type: LEXISCAN Test Indications: PRE OP CLEARENCE Medications: LIST SCAN Medical History: PRE OP Target HR: 167 bpm Resting ECG: normal Resting Heart Rate: 82 bpm Resting Blood Pressure: 120/80mmHg submaximum (85%): 142 bpm TEST SUMMARY [id number]:[id number]/80.0. INFUSIONDOSE 100:300.00.01.395475/80.0. WQGCGGWBF84:[id number]/60.0. PROCEDURE Pharmacologic stress testing was performed using 0.4mg per 5ml of regadenoson given intravenously over 7-10 seconds. POST EXERCISE Target HR: No Max HR: 82 bpm 58% of Maximum Predicted HR: 167 bpm Exercise duration: 00:30 min:sec, 0 Stage Exercise capacity: 1.0METs Max Blood Pressure: 120/80mmHg Chest Pain: No, none Angina index: 0 Arrhythmia: Yes, atrial premature beats ST Change: No, none Deviation: 0 mm INTERPRETATION Stress EKG Conclusion: Nondiagnostic stress test EXAM: Myocardial Perfusion REST/STRESS Imaging Protocol The imaging protocol used to acquire images was Rest Tc-99m/stress Tc-99m 1 day Rest Spect myocardial perfusion imaging was performed in supine position 45 minutes following the injection of 12.6 mCi of Tc-99 Myoview. Gated Stress Spect was performed 45 minutes after intravenous 32.9 mCi Tc-99 Myoview injection. The images were gated to evaluate regional wall motion and calculate ventricular ejection fraction.Images were reconstructed using backfilter projection method in short horizontal and verticle long axis. Spect slices were generated. RESTING DATA EDV92.36xcSZ5.70L/min ESV26.00mlMyocardial Ynat168.00g Av. Heart Rate86.00bpm EF72.00% STRESS DATA EDV86.37gtNM6.10L/min ESV22.00mlMyocardial Shcf538.00g EF74.00% Regional WT score at stress:0.00 Regional WM score at stress:0.00 Summed WT score at stress:0.00 Av. Heart Rate80.00bpmSummed WM score at stress:0.00 LV Perf. Quant 17 Seg. SSS2.00 17 Seg. SRS1.00 17 Seg. SDS1.00 Stress Defect Extent (% LAD)0.00Rest Defect Extent (% LAD)0.00Rev. Defect Extent (% LAD)0.00 Stress Defect Extent (% LCX)10.00Rest Defect Extent (% LCX)17.50Rev. Defect Extent (% LCX)0.00 Stress Defect Extent (% RCA)0.00Rest Defect Extent (% RCA)0.00Rev. Defect Extent (% RCA)0.00 Stress Defect Extent (% RICK)3.90Rest Defect Extent (% RICK)3.50Rev. Defect Extent (% RICK)1.50 Left Ventricle LV Size/Shape: The left ventricle is normal size. LV Function:Left ventricle systolic function is normal. The Ejection Fraction is 74% up from 72% at rest. Regional Wall Motion:No regional wall motion abnormalities noted. Metabolism/Perfusion Reversible/Irreversible: There is a small partially irreversible perfusion/metabolism defect in the Apical inferior wall. Conclusion 1. Left ventricle systolic function is normal. 2. The Ejection Fraction is 74% up from 72% at rest. 3. No regional wall motion abnormalities noted. 4. Old SC with surrounding ischemia. Non Significant
--- NOTE | 2017-04-04 19:40 | CP.PCM.PN ---
Subjective - Date & Time of Evaluation Date of Evaluation: 04/04/17 Time of Evaluation: 12:00 - Subjective Subjective: had EST no significant ischemia, EF 70% acceptable risk for cardiac complication from surgery Objective - Vital Signs/Intake and Output Vital Signs (last 24 hours): Temp Pulse Resp BP Pulse Ox 98.3 F 84 20 109/69 98 04/04/17 00:00 04/04/17 00:00 04/04/17 00:00 04/04/17 18:06 04/04/17 00:00 Intake and Output: 04/04/17 04/05/17 18:59 06:59 Intake Total 651.6 Output Total 850 Balance -198.4 - Medications Medications: Current Medications Acetaminophen (Tylenol 325mg Tab) 650 mg PO Q6 PRN PRN Reason: Pain, Mild (1-3) Last Admin: 04/04/17 14:21 Dose: 650 mg Carvedilol (Coreg) 25 mg PO BID [facility] Last Admin: 04/04/17 18:06 Dose: 25 mg Clopidogrel Bisulfate (Plavix) 75 mg PO DAILY [facility] Last Admin: 04/04/17 11:22 Dose: 75 mg Gabapentin (Neurontin) 300 mg PO TID [facility] Last Admin: 04/04/17 17:55 Dose: 300 mg Piperacillin Sod/Tazobactam (Sod 3.375 gm/ Sodium Chloride) 100 mls @ 100 mls/ hr IVPB Q6H [facility] Last Admin: 04/04/17 18:01 Dose: 100 mls/hr Heparin Sodium/Sodium Chloride (Heparin 44977 Units/250ml 1/2 Normal Saline) 25 ,000 units in 250 mls @ 12.737 mls/hr IV .[id number] PRN; Protocol; 18 UNITS/KG/HR PRN Reason: ADJUST RATE PER PROTOCOL Last Admin: 04/04/17 14:08 Dose: 18 units/kg/hr, 12.737 mls/hr Insulin Aspart (Novolog) 0 unit SC ACHS [facility] PRN Reason: Protocol Last Admin: 04/04/17 17:57 Dose: Not Given Insulin Glargine (Lantus) 30 unit SC Q12 [facility] Last Admin: 04/04/17 11:11 Dose: Not Given Lactic Acid (Lac-Hydrin 12% Lotion (225 G)) 4 gm EXT BID [facility] Last Admin: 04/04/17 17:56 Dose: Not Given Lidocaine (Lidoderm) 1 ea TD DAILY [facility] Last Admin: 04/04/17 12:39 Dose: 1 ea Losartan Potassium (Cozaar) 25 mg PO DAILY [facility] Last Admin: 04/04/17 11:21 Dose: 25 mg Multivitamins/Minerals (Therapeutic-M Tab) 1 tab PO DAILY [facility] Last Admin: 04/04/17 11:19 Dose: 1 tab Mupirocin (Bactroban Ointment) 0 gm TOP BID [facility] Last Admin: 04/04/17 17:57 Dose: 1 applic Ondansetron HCl (Zofran Tab) 4 mg PO Q8H PRN PRN Reason: Nausea/Vomiting Oxycodone/Acetaminophen (Percocet 5/325 Mg Tab) 2 tab PO Q6H PRN PRN Reason: Pain, severe (8-10) Stop: 04/06/17 13:41 Last Admin: 04/04/17 17:58 Dose: 2 tab Rosuvastatin Calcium (Crestor) 5 mg PO HS [facility] Last Admin: 04/03/17 21:43 Dose: 5 mg Sennosides (Senokot Tab) 8.6 mg PO DAILY [facility] Last Admin: 04/04/17 11:21 Dose: 8.6 mg Thiamine HCl (Vitamin B1 Tab) 100 mg PO DAILY [facility] Last Admin: 04/04/17 11:20 Dose: 100 mg Vitamin A (Vitamin A & D Oint Ud Foilpak) 1 ea TOP BID [facility] Last Admin: 04/04/17 18:02 Dose: 1 ea Zolpidem Tartrate (Ambien) 5 mg PO HS PRN PRN Reason: Insomnia Last Admin: 04/03/17 21:43 Dose: 5 mg - Labs Labs: 03/30/17 07:05 03/30/17 05:10 PT 12.8 SECONDS (9.7-12.2) H 04/03/17 21:35 INR 1.1 04/03/17 21:35 APTT 78 SECONDS (21-34) H D 04/04/17 04:04 - Constitutional Appears: Non-toxic - Head Exam Head Exam: ATRAUMATIC - Eye Exam Eye Exam: EOMI - ENT Exam ENT Exam: Mucous Membranes Moist - Neck Exam Neck Exam: absent: Lymphadenopathy, Thyromegaly - Respiratory Exam Respiratory Exam: Clear to Ausculation Bilateral. absent: Rales - Cardiovascular Exam Cardiovascular Exam: REGULAR RHYTHM, Murmur - GI/Abdominal Exam GI & Abdominal Exam: Normal Bowel Sounds. absent: Organomegaly - Rectal Exam Rectal Exam: Deferred - Extremities Exam Extremities Exam: absent: Calf Tenderness Additional comments: AKA on L - Neurological Exam Neurological Exam: Alert, Oriented x3 - Psychiatric Exam Psychiatric exam: Normal Mood - Skin Skin Exam: Dry Assessment and Plan (1) Pre-procedural cardiovascular examination Assessment & Plan: acceptable risk for cardiac complication from surgery Status: Acute (2) Atherosclerosis of left lower extremity with gangrene Status: Acute (3) Diabetic foot infection Status: Acute (4) HTN (hypertension) Status: Chronic (5) Diabetes mellitus Status: Chronic
[2017-04-04] MEDS: Vancomycin 1 gm/NS 200 ml 1 GM/200 ML BAG IVPB SCH (21:28)
--- NOTE | 2017-04-04 23:23 | CP.PCM.PN ---
Subjective - Date & Time of Evaluation Date of Evaluation: 04/04/17 Time of Evaluation: 18:00 Objective - Vital Signs/Intake and Output Vital Signs (last 24 hours): Temp Pulse Resp BP Pulse Ox 98.3 F 84 20 109/69 98 04/04/17 00:00 04/04/17 00:00 04/04/17 00:00 04/04/17 18:06 04/04/17 00:00 Intake and Output: 04/04/17 04/05/17 18:59 06:59 Intake Total 651.6 901.6 Output Total 850 1000 Balance -198.4 -98.4 - Medications Medications: Current Medications Acetaminophen (Tylenol 325mg Tab) 650 mg PO Q6 PRN PRN Reason: Pain, Mild (1-3) Last Admin: 04/04/17 14:21 Dose: 650 mg Carvedilol (Coreg) 25 mg PO BID [facility] Last Admin: 04/04/17 18:06 Dose: 25 mg Clopidogrel Bisulfate (Plavix) 75 mg PO DAILY [facility] Last Admin: 04/04/17 11:22 Dose: 75 mg Gabapentin (Neurontin) 300 mg PO TID [facility] Last Admin: 04/04/17 17:55 Dose: 300 mg Piperacillin Sod/Tazobactam (Sod 3.375 gm/ Sodium Chloride) 100 mls @ 100 mls/ hr IVPB Q6H [facility] Last Admin: 04/04/17 23:08 Dose: 100 mls/hr Heparin Sodium/Sodium Chloride (Heparin 94479 Units/250ml 1/2 Normal Saline) 25 ,000 units in 250 mls @ 12.737 mls/hr IV .[id number] PRN; Protocol; 18 UNITS/KG/HR PRN Reason: ADJUST RATE PER PROTOCOL Last Admin: 04/04/17 14:08 Dose: 18 units/kg/hr, 12.737 mls/hr Vancomycin/Sodium Chloride (Vancomycin 1 Gm/Ns 200 Ml) 1 gm in 200 mls @ 133 mls/hr IVPB Q12H [facility] Stop: 04/09/17 21:01 Last Admin: 04/04/17 21:28 Dose: 133 mls/hr Insulin Aspart (Novolog) 0 unit SC ACHS [facility] PRN Reason: Protocol Last Admin: 04/04/17 23:02 Dose: Not Given Insulin Glargine (Lantus) 30 unit SC Q12 [facility] Last Admin: 04/04/17 21:33 Dose: Not Given Lactic Acid (Lac-Hydrin 12% Lotion (225 G)) 4 gm EXT BID [facility] Last Admin: 04/04/17 17:56 Dose: Not Given Lidocaine (Lidoderm) 1 ea TD DAILY [facility] Last Admin: 04/04/17 12:39 Dose: 1 ea Losartan Potassium (Cozaar) 25 mg PO DAILY [facility] Last Admin: 04/04/17 11:21 Dose: 25 mg Multivitamins/Minerals (Therapeutic-M Tab) 1 tab PO DAILY [facility] Last Admin: 04/04/17 11:19 Dose: 1 tab Mupirocin (Bactroban Ointment) 0 gm TOP BID [facility] Last Admin: 04/04/17 17:57 Dose: 1 applic Ondansetron HCl (Zofran Tab) 4 mg PO Q8H PRN PRN Reason: Nausea/Vomiting Oxycodone/Acetaminophen (Percocet 5/325 Mg Tab) 2 tab PO Q4 PRN PRN Reason: Pain, severe (8-10) Stop: 04/07/17 20:01 Last Admin: 04/04/17 21:31 Dose: 2 tab Rosuvastatin Calcium (Crestor) 5 mg PO HS [facility] Last Admin: 04/04/17 21:30 Dose: 5 mg Sennosides (Senokot Tab) 8.6 mg PO DAILY [facility] Last Admin: 04/04/17 11:21 Dose: 8.6 mg Thiamine HCl (Vitamin B1 Tab) 100 mg PO DAILY [facility] Last Admin: 04/04/17 11:20 Dose: 100 mg Vitamin A (Vitamin A & D Oint Ud Foilpak) 1 ea TOP BID [facility] Last Admin: 04/04/17 18:02 Dose: 1 ea Zolpidem Tartrate (Ambien) 5 mg PO HS PRN PRN Reason: Insomnia Last Admin: 04/04/17 21:30 Dose: 5 mg - Labs Labs: 03/30/17 07:05 03/30/17 05:10 PT 12.8 SECONDS (9.7-12.2) H 04/03/17 21:35 INR 1.1 04/03/17 21:35 APTT 78 SECONDS (21-34) H D 04/04/17 04:04 Assessment and Plan (1) Diabetic foot infection Status: Acute (2) Gangrene of right foot Status: Acute (3) Above knee amputation of left lower extremity Status: Acute (4) HTN (hypertension) Status: Chronic (5) COPD (chronic obstructive pulmonary disease) Status: Chronic (6) Diabetes mellitus Status: Chronic (7) PAD (peripheral artery disease) Status: Chronic
[2017-04-05] MEDS: Oxycodone/Acetaminophen 5/325 mg Tab PO PRN ×4 (02:12→19:44)
[2017-04-05] MEDS: Piperacillin/Tazobact 3.375 GM in Sodium Chloride 100 ML IVPB SCH ×4 (05:17→22:48)
[2017-04-05 06:23] LABS: HEMOGLOBIN 11.8 g/dL (12.0-18.0); MEAN CELL VOLUME 97.9 fL (80.0-94.0); MEAN CORPUSCULAR HEMOGLOBIN 33.2 pg (27.0-31.0); MEAN CORPUSCULAR HGB CONC 33.9 g/dL (33.0-37.0); MEAN PLATELET VOLUME 8.7 fL (7.2-11.7); RBC 3.55 Mil/uL (4.40-5.90); RED CELL DISTRIBUTION WIDTH 14.6 % (11.5-14.5); WHITE BLOOD COUNT 6.9 K/uL (4.8-10.8)
[2017-04-05] MEDS: (Novolog) Insulin Aspart, Recombinant 100 u/ml 10 ml vial SC SCH ×4 (07:30→22:06)
[2017-04-05] MEDS: Vancomycin 1 gm/NS 200 ml 1 GM/200 ML BAG IVPB SCH ×2 (09:00→22:03)
[2017-04-05] MEDS: Multivitamin With Minerals Tab PO SCH (09:56)
[2017-04-05] MEDS: (Lantus) Insulin Glargine, Recombinant SC SCH ×2 (09:56→22:07)
[2017-04-05] MEDS: Vitamins A & D Oint UD Foilpak TOP SCH ×2 (10:11→18:15)
[2017-04-05] MEDS: Lidocaine 5% Patch TD SCH (10:12)
[2017-04-05] MEDS: Ammonium Lactate 12% Lotion (225 g) EXT SCH ×2 (10:13→18:19)
[2017-04-05] MEDS: Heparin25000 units/250ml 1/2NS 25,000 UNITS/250 ML BAG IV PRN (12:07)
--- NOTE | 2017-04-05 12:41 | CP.PCM.PN ---
Subjective - Date & Time of Evaluation Date of Evaluation: 04/05/17 Time of Evaluation: 08:00 - Subjective Subjective: Vascular Surgery- Dr. Fernández Pt S&E at bedside this AM. no acute events overnight. Pain well controlled on current pain regiment. tolerating diet. Denies F/C CP/SOB N/V/D Objective - Vital Signs/Intake and Output Vital Signs (last 24 hours): Temp Pulse Resp BP Pulse Ox 98 F 91 H 20 131/61 98 04/05/17 08:53 04/05/17 08:53 04/05/17 08:53 04/05/17 09:56 04/05/17 08:53 Intake and Output: 04/05/17 04/05/17 06:59 18:59 Intake Total 1223.2 250 Output Total 1600 Balance -376.8 250 - Medications Medications: Current Medications Acetaminophen (Tylenol 325mg Tab) 650 mg PO Q6 PRN PRN Reason: Pain, Mild (1-3) Last Admin: 04/04/17 14:21 Dose: 650 mg Carvedilol (Coreg) 25 mg PO BID [facility] Last Admin: 04/05/17 09:56 Dose: 25 mg Clopidogrel Bisulfate (Plavix) 75 mg PO DAILY [facility] Last Admin: 04/05/17 09:55 Dose: 75 mg Gabapentin (Neurontin) 300 mg PO TID [facility] Last Admin: 04/05/17 09:55 Dose: 300 mg Piperacillin Sod/Tazobactam (Sod 3.375 gm/ Sodium Chloride) 100 mls @ 100 mls/ hr IVPB Q6H [facility] Last Admin: 04/05/17 05:17 Dose: 100 mls/hr Heparin Sodium/Sodium Chloride (Heparin 39087 Units/250ml 1/2 Normal Saline) 25 ,000 units in 250 mls @ 12.737 mls/hr IV .[id number] PRN; Protocol; 18 UNITS/KG/HR PRN Reason: ADJUST RATE PER PROTOCOL Last Admin: 04/05/17 12:07 Dose: 18 units/kg/hr, 12.737 mls/hr Vancomycin/Sodium Chloride (Vancomycin 1 Gm/Ns 200 Ml) 1 gm in 200 mls @ 133 mls/hr IVPB Q12H [facility] Stop: 04/09/17 21:01 Last Admin: 04/05/17 09:00 Dose: 133 mls/hr Insulin Aspart (Novolog) 0 unit SC ACHS [facility] PRN Reason: Protocol Last Admin: 04/05/17 11:30 Dose: Not Given Insulin Glargine (Lantus) 30 unit SC Q12 [facility] Last Admin: 04/05/17 09:56 Dose: 30 units Lactic Acid (Lac-Hydrin 12% Lotion (225 G)) 4 gm EXT BID [facility] Last Admin: 04/05/17 10:13 Dose: 1 applic Lidocaine (Lidoderm) 1 ea TD DAILY [facility] Last Admin: 04/05/17 10:12 Dose: 1 ea Losartan Potassium (Cozaar) 25 mg PO DAILY [facility] Last Admin: 04/05/17 09:55 Dose: 25 mg Multivitamins/Minerals (Therapeutic-M Tab) 1 tab PO DAILY [facility] Last Admin: 04/05/17 09:56 Dose: 1 tab Mupirocin (Bactroban Ointment) 0 gm TOP BID [facility] Last Admin: 04/05/17 10:12 Dose: 1 applic Ondansetron HCl (Zofran Tab) 4 mg PO Q8H PRN PRN Reason: Nausea/Vomiting Oxycodone/Acetaminophen (Percocet 5/325 Mg Tab) 2 tab PO Q4 PRN PRN Reason: Pain, severe (8-10) Stop: 04/07/17 20:01 Last Admin: 04/05/17 08:41 Dose: 2 tab Rosuvastatin Calcium (Crestor) 5 mg PO HS [facility] Last Admin: 04/04/17 21:30 Dose: 5 mg Sennosides (Senokot Tab) 8.6 mg PO DAILY [facility] Last Admin: 04/05/17 09:55 Dose: 8.6 mg Thiamine HCl (Vitamin B1 Tab) 100 mg PO DAILY [facility] Last Admin: 04/05/17 09:55 Dose: 100 mg Vitamin A (Vitamin A & D Oint Ud Foilpak) 1 ea TOP BID [facility] Last Admin: 04/05/17 10:11 Dose: 1 ea Zolpidem Tartrate (Ambien) 5 mg PO HS PRN PRN Reason: Insomnia Last Admin: 04/04/17 21:30 Dose: 5 mg - Labs Labs: 04/05/17 06:14 03/30/17 05:10 PT 12.8 SECONDS (9.7-12.2) H 04/03/17 21:35 INR 1.1 04/03/17 21:35 APTT 72 SECONDS (21-34) H D 04/05/17 06:14 - Constitutional Appears: Non-toxic, No Acute Distress - Head Exam Head Exam: ATRAUMATIC - Eye Exam Eye Exam: EOMI. absent: Scleral icterus - ENT Exam ENT Exam: Mucous Membranes Moist - Respiratory Exam Respiratory Exam: NORMAL BREATHING PATTERN. absent: Accessory Muscle Use, Respiratory Distress - Cardiovascular Exam Cardiovascular Exam: +S1, +S2. absent: Bradycardia, Tachycardia - GI/Abdominal Exam GI & Abdominal Exam: Soft. absent: Firm, Guarding, Rigid, Tenderness - Extremities Exam Additional comments: L AKA R. dressing C/D/I - Neurological Exam Neurological Exam: Alert, Awake, Oriented x3 Assessment and Plan - Assessment and Plan (Free Text) Assessment: 52M w/ PVD and acute DVT in RLE Plan: - plan for OR on Friday for R BKA. - Will make NPO after MN Friday - pain control PRN - type and screen tomorrow - d/w surgical attending PGY1
--- NOTE | 2017-04-05 13:44 | CP.PCM.PN ---
Subjective - Date & Time of Evaluation Date of Evaluation: 04/05/17 Time of Evaluation: 09:00 - Subjective Subjective: Podiatry Progress Note- Dr. Malik 51 year old male was seen at bedside for R DVT with right foot dry gangrene. Patient is seen resting comfortably in his bed, AAOx3, and in NAD. Patient reports that he is in better spirits today. Patient understands that he is getting an R BKA [place]. Patient denies of having any F/N/V/C/SOB/CP. Objective - Vital Signs/Intake and Output Vital Signs (last 24 hours): Temp Pulse Resp BP Pulse Ox 98 F 91 H 20 131/61 98 04/05/17 08:53 04/05/17 08:53 04/05/17 08:53 04/05/17 09:56 04/05/17 08:53 Intake and Output: 04/05/17 04/05/17 06:59 18:59 Intake Total 1223.2 250 Output Total 1600 Balance -376.8 250 - Medications Medications: Current Medications Acetaminophen (Tylenol 325mg Tab) 650 mg PO Q6 PRN PRN Reason: Pain, Mild (1-3) Last Admin: 04/04/17 14:21 Dose: 650 mg Carvedilol (Coreg) 25 mg PO BID [facility] Last Admin: 04/05/17 09:56 Dose: 25 mg Clopidogrel Bisulfate (Plavix) 75 mg PO DAILY [facility] Last Admin: 04/05/17 09:55 Dose: 75 mg Gabapentin (Neurontin) 300 mg PO TID [facility] Last Admin: 04/05/17 09:55 Dose: 300 mg Piperacillin Sod/Tazobactam (Sod 3.375 gm/ Sodium Chloride) 100 mls @ 100 mls/ hr IVPB Q6H [facility] Last Admin: 04/05/17 05:17 Dose: 100 mls/hr Heparin Sodium/Sodium Chloride (Heparin 06726 Units/250ml 1/2 Normal Saline) 25 ,000 units in 250 mls @ 12.737 mls/hr IV .[id number] PRN; Protocol; 18 UNITS/KG/HR PRN Reason: ADJUST RATE PER PROTOCOL Last Admin: 04/05/17 12:07 Dose: 18 units/kg/hr, 12.737 mls/hr Vancomycin/Sodium Chloride (Vancomycin 1 Gm/Ns 200 Ml) 1 gm in 200 mls @ 133 mls/hr IVPB Q12H [facility] Stop: 04/09/17 21:01 Last Admin: 04/05/17 09:00 Dose: 133 mls/hr Insulin Aspart (Novolog) 0 unit SC ACHS [facility] PRN Reason: Protocol Last Admin: 04/05/17 11:30 Dose: Not Given Insulin Glargine (Lantus) 30 unit SC Q12 [facility] Last Admin: 04/05/17 09:56 Dose: 30 units Lactic Acid (Lac-Hydrin 12% Lotion (225 G)) 4 gm EXT BID [facility] Last Admin: 04/05/17 10:13 Dose: 1 applic Lidocaine (Lidoderm) 1 ea TD DAILY [facility] Last Admin: 04/05/17 10:12 Dose: 1 ea Losartan Potassium (Cozaar) 25 mg PO DAILY [facility] Last Admin: 04/05/17 09:55 Dose: 25 mg Multivitamins/Minerals (Therapeutic-M Tab) 1 tab PO DAILY [facility] Last Admin: 04/05/17 09:56 Dose: 1 tab Mupirocin (Bactroban Ointment) 0 gm TOP BID [facility] Last Admin: 04/05/17 10:12 Dose: 1 applic Ondansetron HCl (Zofran Tab) 4 mg PO Q8H PRN PRN Reason: Nausea/Vomiting Oxycodone/Acetaminophen (Percocet 5/325 Mg Tab) 2 tab PO Q4 PRN PRN Reason: Pain, severe (8-10) Stop: 04/07/17 20:01 Last Admin: 04/05/17 08:41 Dose: 2 tab Rosuvastatin Calcium (Crestor) 5 mg PO HS [facility] Last Admin: 04/04/17 21:30 Dose: 5 mg Sennosides (Senokot Tab) 8.6 mg PO DAILY [facility] Last Admin: 04/05/17 09:55 Dose: 8.6 mg Thiamine HCl (Vitamin B1 Tab) 100 mg PO DAILY [facility] Last Admin: 04/05/17 09:55 Dose: 100 mg Vitamin A (Vitamin A & D Oint Ud Foilpak) 1 ea TOP BID [facility] Last Admin: 04/05/17 10:11 Dose: 1 ea Zolpidem Tartrate (Ambien) 5 mg PO HS PRN PRN Reason: Insomnia Last Admin: 04/04/17 21:30 Dose: 5 mg - Labs Labs: 04/05/17 06:14 03/30/17 05:10 PT 12.8 SECONDS (9.7-12.2) H 04/03/17 21:35 INR 1.1 04/03/17 21:35 APTT 72 SECONDS (21-34) H D 04/05/17 06:14 - Constitutional Appears: Well, Non-toxic, No Acute Distress - Extremities Exam Additional comments: Right lower extremity focused. Left leg above knee amputation noted. Dressings are clean, dry, and intact. VASC: DP and PT pulses non-palpable. Temperature gradient runs cool to cold from proximal leg to distal foot, outside acceptable limits. Absent capillary digital refill time to 4th digit, 3 digits capillary refill time <3 seconds. NEURO: Protective sensation grossly diminished. DERM: Full thickness ulceration measuring approximately 6 cm x 2.8 cm with 90% necrotic 10% fibrotic wound base, periwound is hyperkeratotic. No malodor, no drainage, no acute signs of infection noted. 4th digit presents with duskiness. Ortho: No tenderness to palpation noted. - Neurological Exam Neurological Exam: Alert, Awake, Oriented x3 - Psychiatric Exam Psychiatric exam: Normal Affect, Normal Mood Assessment and Plan - Assessment and Plan (Free Text) Assessment: 51 year old male with full thickness lateral foot ulceration secondary to PVD and DM Plan: Patient was examined and evaluated Discussed with attending, Dr. Malik Chart, labs, and vitals reviewed - afebrile Right foot ulcer site cleansed with sterile saline, dressed with betadine and DSD. Continue pain medications per primary Continue with vascular recs Podiatry will follow patient while in-house
--- NOTE | 2017-04-05 23:15 | CP.PCM.PN ---
Subjective - Date & Time of Evaluation Date of Evaluation: 04/05/17 Time of Evaluation: 18:40 Objective - Vital Signs/Intake and Output Vital Signs (last 24 hours): Temp Pulse Resp BP Pulse Ox 98.6 F 82 20 131/75 100 04/05/17 16:01 04/05/17 16:01 04/05/17 16:01 04/05/17 18:15 04/05/17 16:01 Intake and Output: 04/05/17 04/06/17 18:59 06:59 Intake Total 250 901.6 Output Total 900 Balance 250 1.6 - Medications Medications: Current Medications Acetaminophen (Tylenol 325mg Tab) 650 mg PO Q6 PRN PRN Reason: Pain, Mild (1-3) Last Admin: 04/05/17 22:09 Dose: 650 mg Carvedilol (Coreg) 25 mg PO BID [facility] Last Admin: 04/05/17 18:15 Dose: 25 mg Clopidogrel Bisulfate (Plavix) 75 mg PO DAILY [facility] Last Admin: 04/05/17 09:55 Dose: 75 mg Gabapentin (Neurontin) 300 mg PO TID [facility] Last Admin: 04/05/17 18:15 Dose: 300 mg Piperacillin Sod/Tazobactam (Sod 3.375 gm/ Sodium Chloride) 100 mls @ 100 mls/ hr IVPB Q6H [facility] Last Admin: 04/05/17 22:48 Dose: 100 mls/hr Heparin Sodium/Sodium Chloride (Heparin 24681 Units/250ml 1/2 Normal Saline) 25 ,000 units in 250 mls @ 12.737 mls/hr IV .[id number] PRN; Protocol; 18 UNITS/KG/HR PRN Reason: ADJUST RATE PER PROTOCOL Last Admin: 04/05/17 12:07 Dose: 18 units/kg/hr, 12.737 mls/hr Vancomycin/Sodium Chloride (Vancomycin 1 Gm/Ns 200 Ml) 1 gm in 200 mls @ 133 mls/hr IVPB Q12H [facility] Stop: 04/09/17 21:01 Last Admin: 04/05/17 22:03 Dose: 133 mls/hr Insulin Aspart (Novolog) 0 unit SC ACHS [facility] PRN Reason: Protocol Last Admin: 04/05/17 22:06 Dose: Not Given Insulin Glargine (Lantus) 30 unit SC Q12 [facility] Last Admin: 04/05/17 22:07 Dose: Not Given Lactic Acid (Lac-Hydrin 12% Lotion (225 G)) 4 gm EXT BID [facility] Last Admin: 04/05/17 18:19 Dose: Not Given Lidocaine (Lidoderm) 1 ea TD DAILY [facility] Last Admin: 04/05/17 10:12 Dose: 1 ea Losartan Potassium (Cozaar) 25 mg PO DAILY [facility] Last Admin: 04/05/17 09:55 Dose: 25 mg Multivitamins/Minerals (Therapeutic-M Tab) 1 tab PO DAILY [facility] Last Admin: 04/05/17 09:56 Dose: 1 tab Mupirocin (Bactroban Ointment) 0 gm TOP BID [facility] Last Admin: 04/05/17 22:48 Dose: 1 applic Ondansetron HCl (Zofran Tab) 4 mg PO Q8H PRN PRN Reason: Nausea/Vomiting Oxycodone/Acetaminophen (Percocet 5/325 Mg Tab) 2 tab PO Q4 PRN PRN Reason: Pain, severe (8-10) Stop: 04/07/17 20:01 Last Admin: 04/05/17 19:44 Dose: 2 tab Rosuvastatin Calcium (Crestor) 5 mg PO HS [facility] Last Admin: 04/05/17 22:04 Dose: 5 mg Sennosides (Senokot Tab) 8.6 mg PO DAILY [facility] Last Admin: 04/05/17 09:55 Dose: 8.6 mg Thiamine HCl (Vitamin B1 Tab) 100 mg PO DAILY [facility] Last Admin: 04/05/17 09:55 Dose: 100 mg Vitamin A (Vitamin A & D Oint Ud Foilpak) 1 ea TOP BID [facility] Last Admin: 04/05/17 18:15 Dose: 1 ea Zolpidem Tartrate (Ambien) 5 mg PO HS PRN PRN Reason: Insomnia Last Admin: 04/05/17 22:07 Dose: 5 mg - Labs Labs: 04/05/17 06:14 03/30/17 05:10 PT 12.8 SECONDS (9.7-12.2) H 04/03/17 21:35 INR 1.1 04/03/17 21:35 APTT 72 SECONDS (21-34) H D 04/05/17 06:14 Assessment and Plan (1) Diabetic foot infection Status: Acute (2) Gangrene of right foot Status: Acute (3) Above knee amputation of left lower extremity Status: Acute (4) HTN (hypertension) Status: Chronic (5) COPD (chronic obstructive pulmonary disease) Status: Chronic (6) Diabetes mellitus Status: Chronic (7) PAD (peripheral artery disease) Status: Chronic
[2017-04-06] MEDS: Oxycodone/Acetaminophen 5/325 mg Tab PO PRN ×5 (00:35→22:59)
[2017-04-06] MEDS: Piperacillin/Tazobact 3.375 GM in Sodium Chloride 100 ML IVPB SCH ×4 (06:00→22:01)
[2017-04-06] MEDS: (Novolog) Insulin Aspart, Recombinant 100 u/ml 10 ml vial SC SCH ×4 (08:14→21:59)
[2017-04-06] MEDS: (Lantus) Insulin Glargine, Recombinant SC SCH ×2 (09:27→21:59)
[2017-04-06] MEDS: Vitamins A & D Oint UD Foilpak TOP SCH ×2 (09:28→17:36)
[2017-04-06] MEDS: Multivitamin With Minerals Tab PO SCH (09:30)
[2017-04-06] MEDS: Vancomycin 1 gm/NS 200 ml 1 GM/200 ML BAG IVPB SCH ×2 (09:34→20:17)
[2017-04-06] MEDS: Ammonium Lactate 12% Lotion (225 g) EXT SCH ×2 (09:34→17:37)
[2017-04-06] MEDS ORDERED: Sodium Chloride Nasal 0.65% Soln (30ml) NAS PRN (09:36)
[2017-04-06] MEDS: Lidocaine 5% Patch TD SCH (09:41)
[2017-04-06] MEDS: Heparin25000 units/250ml 1/2NS 25,000 UNITS/250 ML BAG IV PRN (12:15)
--- NOTE | 2017-04-06 12:18 | CP.PCM.PN ---
Subjective - Date & Time of Evaluation Date of Evaluation: 04/06/17 Time of Evaluation: 07:45 - Subjective Subjective: Vascular surgery progress note for Dr. Isacc Vogt, PGY-1 Pt S & E at bedside. Pt reports continued pain in RLE, some epistaxis since yesterday. Pt understands that he is for surgery tomorrow. Objective - Vital Signs/Intake and Output Vital Signs (last 24 hours): Temp Pulse Resp BP Pulse Ox 98.5 F 96 H 20 159/99 H 98 04/06/17 09:06 04/06/17 09:06 04/06/17 09:06 04/06/17 09:29 04/06/17 09:06 Intake and Output: 04/06/17 04/06/17 06:59 18:59 Intake Total 901.6 Output Total 900 Balance 1.6 - Medications Medications: Current Medications Acetaminophen (Tylenol 325mg Tab) 650 mg PO Q6 PRN PRN Reason: Pain, Mild (1-3) Last Admin: 04/06/17 04:13 Dose: 650 mg Carvedilol (Coreg) 25 mg PO BID [facility] Last Admin: 04/06/17 09:29 Dose: 25 mg Clopidogrel Bisulfate (Plavix) 75 mg PO DAILY [facility] Last Admin: 04/06/17 09:28 Dose: 75 mg Gabapentin (Neurontin) 300 mg PO TID [facility] Last Admin: 04/06/17 09:28 Dose: 300 mg Piperacillin Sod/Tazobactam (Sod 3.375 gm/ Sodium Chloride) 100 mls @ 100 mls/ hr IVPB Q6H [facility] Last Admin: 04/06/17 06:00 Dose: 100 mls/hr Heparin Sodium/Sodium Chloride (Heparin 51029 Units/250ml 1/2 Normal Saline) 25 ,000 units in 250 mls @ 12.737 mls/hr IV .[id number] PRN; Protocol; 18 UNITS/KG/HR PRN Reason: ADJUST RATE PER PROTOCOL Last Admin: 04/05/17 12:07 Dose: 18 units/kg/hr, 12.737 mls/hr Vancomycin/Sodium Chloride (Vancomycin 1 Gm/Ns 200 Ml) 1 gm in 200 mls @ 133 mls/hr IVPB Q12H [facility] Stop: 04/09/17 21:01 Last Admin: 04/06/17 09:34 Dose: 133 mls/hr Insulin Aspart (Novolog) 0 unit SC ACHS [facility] PRN Reason: Protocol Last Admin: 04/06/17 08:14 Dose: Not Given Insulin Glargine (Lantus) 30 unit SC Q12 [facility] Last Admin: 04/06/17 09:27 Dose: Not Given Lactic Acid (Lac-Hydrin 12% Lotion (225 G)) 4 gm EXT BID [facility] Last Admin: 04/06/17 09:34 Dose: Not Given Lidocaine (Lidoderm) 1 ea TD DAILY [facility] Last Admin: 04/06/17 09:41 Dose: 1 ea Losartan Potassium (Cozaar) 25 mg PO DAILY [facility] Last Admin: 04/06/17 09:29 Dose: 25 mg Multivitamins/Minerals (Therapeutic-M Tab) 1 tab PO DAILY [facility] Last Admin: 04/06/17 09:30 Dose: 1 tab Mupirocin (Bactroban Ointment) 0 gm TOP BID [facility] Last Admin: 04/06/17 12:00 Dose: Not Given Ondansetron HCl (Zofran Tab) 4 mg PO Q8H PRN PRN Reason: Nausea/Vomiting Oxycodone/Acetaminophen (Percocet 5/325 Mg Tab) 2 tab PO Q4 PRN PRN Reason: Pain, severe (8-10) Stop: 04/07/17 20:01 Last Admin: 04/06/17 09:23 Dose: 2 tab Rosuvastatin Calcium (Crestor) 5 mg PO HS [facility] Last Admin: 04/05/17 22:04 Dose: 5 mg Sennosides (Senokot Tab) 8.6 mg PO DAILY [facility] Last Admin: 04/06/17 09:29 Dose: 8.6 mg Sodium Chloride ([place] Baby Saline 30 Ml) 0 ml AQUILES Q2H PRN PRN Reason: Dry nasal passages Thiamine HCl (Vitamin B1 Tab) 100 mg PO DAILY [facility] Last Admin: 04/06/17 09:29 Dose: 100 mg Vitamin A (Vitamin A & D Oint Ud Foilpak) 1 ea TOP BID [facility] Last Admin: 04/06/17 09:28 Dose: 1 ea Zolpidem Tartrate (Ambien) 5 mg PO HS PRN PRN Reason: Insomnia Last Admin: 04/05/17 22:07 Dose: 5 mg - Labs Labs: 04/05/17 06:14 03/30/17 05:10 PT 12.8 SECONDS (9.7-12.2) H 04/03/17 21:35 INR 1.1 04/03/17 21:35 APTT 71 SECONDS (21-34) H 04/06/17 06:41 - Constitutional Appears: Non-toxic, No Acute Distress - Head Exam Head Exam: ATRAUMATIC, NORMAL INSPECTION, NORMOCEPHALIC - Eye Exam Eye Exam: EOMI, Normal appearance - ENT Exam ENT Exam: Normal Exam - Neck Exam Neck Exam: Full ROM, Normal Inspection - Respiratory Exam Respiratory Exam: NORMAL BREATHING PATTERN - Cardiovascular Exam Cardiovascular Exam: REGULAR RHYTHM, +S1, +S2 - Extremities Exam Additional comments: L AKA - Neurological Exam Neurological Exam: Alert, Awake, CN II-XII Intact, Oriented x3 - Psychiatric Exam Psychiatric exam: Normal Affect, Normal Mood - Skin Skin Exam: Dry, Intact, Normal Color, Warm Assessment and Plan - Assessment and Plan (Free Text) Assessment: 52M w/severe PVD and acute DVT in RLE Plan: Cong nasal spray Will Hold Heparin drip at 4am on 04/07 For OR tomorrow- R BKA Consent in chart NPO pMN Pain control Typed & screened Further mgmt as per primary team JOEL attending Torie, PGY-1
[2017-04-06 14:26] LABS: MEAN CELL VOLUME 97.7 fL (80.0-94.0); MEAN CORPUSCULAR HEMOGLOBIN 33.2 pg (27.0-31.0); MEAN PLATELET VOLUME 8.3 fL (7.2-11.7); RBC 3.63 Mil/uL (4.40-5.90); RED CELL DISTRIBUTION WIDTH 14.2 % (11.5-14.5); WHITE BLOOD COUNT 8.5 K/uL (4.8-10.8)
[2017-04-06 14:31] LABS: INR 1.2; PROTHROMBIN TIME 13.1 SECONDS (9.7-12.2)
[2017-04-06 14:35] LABS: ALB/GLOB RATIO 0.8 (1.0-2.1); ALBUMIN 3.4 g/dL (3.5-5.0); ALT/SGPT 24 U/L (21-72); AST/SGOT 44 U/L (17-59); BLOOD UREA NITROGEN 4 mg/dL (9-20); CALCIUM 8.7 mg/dl (8.6-10.4); GFR AFRICAN-AMERICAN > 60; GFR NON-AFRICAN AMERICAN > 60
--- NOTE | 2017-04-06 16:43 | CP.PCM.PN ---
Subjective - Date & Time of Evaluation Date of Evaluation: 04/06/17 Time of Evaluation: 16:00 - Subjective Subjective: doing well, NAD fo surgery in AM acceptable risk for cardiac complication from surgery Objective - Vital Signs/Intake and Output Vital Signs (last 24 hours): Temp Pulse Resp BP Pulse Ox 98.5 F 96 H 20 159/99 H 98 04/06/17 09:06 04/06/17 09:06 04/06/17 09:06 04/06/17 09:29 04/06/17 09:06 Intake and Output: 04/06/17 04/06/17 06:59 18:59 Intake Total 901.6 250 Output Total 900 Balance 1.6 250 - Medications Medications: Current Medications Acetaminophen (Tylenol 325mg Tab) 650 mg PO Q6 PRN PRN Reason: Pain, Mild (1-3) Last Admin: 04/06/17 04:13 Dose: 650 mg Carvedilol (Coreg) 25 mg PO BID [facility] Last Admin: 04/06/17 09:29 Dose: 25 mg Clopidogrel Bisulfate (Plavix) 75 mg PO DAILY [facility] Last Admin: 04/06/17 09:28 Dose: 75 mg Gabapentin (Neurontin) 300 mg PO TID [facility] Last Admin: 04/06/17 09:28 Dose: 300 mg Piperacillin Sod/Tazobactam (Sod 3.375 gm/ Sodium Chloride) 100 mls @ 100 mls/ hr IVPB Q6H [facility] Last Admin: 04/06/17 16:37 Dose: 100 mls/hr Heparin Sodium/Sodium Chloride (Heparin 23277 Units/250ml 1/2 Normal Saline) 25 ,000 units in 250 mls @ 12.737 mls/hr IV .[id number] PRN; Protocol; 18 UNITS/KG/HR PRN Reason: ADJUST RATE PER PROTOCOL Last Admin: 04/06/17 12:15 Dose: 18 units/kg/hr, 12.737 mls/hr Vancomycin/Sodium Chloride (Vancomycin 1 Gm/Ns 200 Ml) 1 gm in 200 mls @ 133 mls/hr IVPB Q12H [facility] Stop: 04/09/17 21:01 Last Admin: 04/06/17 09:34 Dose: 133 mls/hr Insulin Aspart (Novolog) 0 unit SC ACHS [facility] PRN Reason: Protocol Last Admin: 04/06/17 12:36 Dose: Not Given Insulin Glargine (Lantus) 30 unit SC Q12 [facility] Last Admin: 04/06/17 09:27 Dose: Not Given Lactic Acid (Lac-Hydrin 12% Lotion (225 G)) 4 gm EXT BID [facility] Last Admin: 04/06/17 09:34 Dose: Not Given Lidocaine (Lidoderm) 1 ea TD DAILY [facility] Last Admin: 04/06/17 09:41 Dose: 1 ea Losartan Potassium (Cozaar) 25 mg PO DAILY [facility] Last Admin: 04/06/17 09:29 Dose: 25 mg Multivitamins/Minerals (Therapeutic-M Tab) 1 tab PO DAILY [facility] Last Admin: 04/06/17 09:30 Dose: 1 tab Mupirocin (Bactroban Ointment) 0 gm TOP BID [facility] Last Admin: 04/06/17 12:00 Dose: Not Given Ondansetron HCl (Zofran Tab) 4 mg PO Q8H PRN PRN Reason: Nausea/Vomiting Oxycodone/Acetaminophen (Percocet 5/325 Mg Tab) 2 tab PO Q4 PRN PRN Reason: Pain, severe (8-10) Stop: 04/07/17 20:01 Last Admin: 04/06/17 14:34 Dose: 2 tab Rosuvastatin Calcium (Crestor) 5 mg PO HS [facility] Last Admin: 04/05/17 22:04 Dose: 5 mg Sennosides (Senokot Tab) 8.6 mg PO DAILY [facility] Last Admin: 04/06/17 09:29 Dose: 8.6 mg Sodium Chloride ([place] Baby Saline 30 Ml) 0 ml AQUILES Q2H PRN PRN Reason: Dry nasal passages Thiamine HCl (Vitamin B1 Tab) 100 mg PO DAILY [facility] Last Admin: 04/06/17 09:29 Dose: 100 mg Vitamin A (Vitamin A & D Oint Ud Foilpak) 1 ea TOP BID [facility] Last Admin: 04/06/17 09:28 Dose: 1 ea Zolpidem Tartrate (Ambien) 5 mg PO HS PRN PRN Reason: Insomnia Last Admin: 04/05/17 22:07 Dose: 5 mg - Labs Labs: 04/06/17 14:09 04/06/17 14:09 PT 13.1 SECONDS (9.7-12.2) H 02/25/18 14:09 INR 1.2 04/06/17 14:09 APTT 71 SECONDS (21-34) H 04/06/17 06:41 - Constitutional Appears: Non-toxic - Head Exam Head Exam: ATRAUMATIC - Eye Exam Eye Exam: EOMI - ENT Exam ENT Exam: Mucous Membranes Moist - Neck Exam Neck Exam: absent: Lymphadenopathy, Thyromegaly - Respiratory Exam Respiratory Exam: Clear to Ausculation Bilateral. absent: Rales - Cardiovascular Exam Cardiovascular Exam: REGULAR RHYTHM, Murmur - GI/Abdominal Exam GI & Abdominal Exam: Normal Bowel Sounds. absent: Organomegaly - Rectal Exam Rectal Exam: Deferred - Extremities Exam Extremities Exam: Tenderness. absent: Calf Tenderness - Neurological Exam Neurological Exam: Alert, Oriented x3 - Psychiatric Exam Psychiatric exam: Normal Mood - Skin Skin Exam: Dry Assessment and Plan (1) Pre-procedural cardiovascular examination Assessment & Plan: acceptable risk for cardiac complication from surgery Status: Acute (2) Atherosclerosis of left lower extremity with gangrene Status: Acute (3) Diabetic foot infection Status: Acute (4) HTN (hypertension) Status: Chronic (5) Diabetes mellitus Status: Chronic
[2017-04-06] MEDS: Lactated Ringer's 1,000 ML IV SCH (22:08)
--- NOTE | 2017-04-06 23:07 | CP.PCM.PN ---
Subjective - Date & Time of Evaluation Date of Evaluation: 04/06/17 Time of Evaluation: 17:35 - Subjective Subjective: Pt seen and evaluated at bedside Objective - Vital Signs/Intake and Output Vital Signs (last 24 hours): Temp Pulse Resp BP Pulse Ox 98.5 F 91 H 20 126/86 98 04/06/17 16:00 04/06/17 16:00 04/06/17 16:00 04/06/17 17:36 04/06/17 16:00 Intake and Output: 04/06/17 04/07/17 18:59 06:59 Intake Total 250 601.8 Output Total 400 Balance 250 201.8 - Medications Medications: Current Medications Acetaminophen (Tylenol 325mg Tab) 650 mg PO Q6 PRN PRN Reason: Pain, Mild (1-3) Last Admin: 04/06/17 17:57 Dose: 650 mg Carvedilol (Coreg) 25 mg PO BID [facility] Last Admin: 04/06/17 17:36 Dose: 25 mg Clopidogrel Bisulfate (Plavix) 75 mg PO DAILY [facility] Last Admin: 04/06/17 09:28 Dose: 75 mg Gabapentin (Neurontin) 300 mg PO TID [facility] Last Admin: 04/06/17 17:36 Dose: 300 mg Piperacillin Sod/Tazobactam (Sod 3.375 gm/ Sodium Chloride) 100 mls @ 100 mls/ hr IVPB Q6H [facility] Last Admin: 04/06/17 22:01 Dose: 100 mls/hr Heparin Sodium/Sodium Chloride (Heparin 89912 Units/250ml 1/2 Normal Saline) 25 ,000 units in 250 mls @ 12.737 mls/hr IV .[id number] PRN; Protocol; 18 UNITS/KG/HR PRN Reason: ADJUST RATE PER PROTOCOL Last Admin: 04/06/17 12:15 Dose: 18 units/kg/hr, 12.737 mls/hr Vancomycin/Sodium Chloride (Vancomycin 1 Gm/Ns 200 Ml) 1 gm in 200 mls @ 133 mls/hr IVPB Q12H [facility] Stop: 04/09/17 21:01 Last Admin: 04/06/17 20:17 Dose: 133 mls/hr Lactated Ringer's (Lactated Ringer's) 1,000 mls @ 100 mls/hr IV .Q10H [facility] Last Admin: 04/06/17 22:08 Dose: 100 mls/hr Insulin Aspart (Novolog) 0 unit SC ACHS [facility] PRN Reason: Protocol Last Admin: 04/06/17 21:59 Dose: Not Given Insulin Glargine (Lantus) 30 unit SC Q12 [facility] Last Admin: 04/06/17 21:59 Dose: Not Given Lactic Acid (Lac-Hydrin 12% Lotion (225 G)) 4 gm EXT BID [facility] Last Admin: 04/06/17 17:37 Dose: 1 applic Lidocaine (Lidoderm) 1 ea TD DAILY [facility] Last Admin: 04/06/17 09:41 Dose: 1 ea Losartan Potassium (Cozaar) 25 mg PO DAILY [facility] Last Admin: 04/06/17 09:29 Dose: 25 mg Multivitamins/Minerals (Therapeutic-M Tab) 1 tab PO DAILY [facility] Last Admin: 04/06/17 09:30 Dose: 1 tab Mupirocin (Bactroban Ointment) 0 gm TOP BID [facility] Last Admin: 04/06/17 17:37 Dose: 1 applic Ondansetron HCl (Zofran Tab) 4 mg PO Q8H PRN PRN Reason: Nausea/Vomiting Oxycodone/Acetaminophen (Percocet 5/325 Mg Tab) 2 tab PO Q4 PRN PRN Reason: Pain, severe (8-10) Stop: 04/07/17 20:01 Last Admin: 04/06/17 22:59 Dose: 2 tab Rosuvastatin Calcium (Crestor) 5 mg PO HS [facility] Last Admin: 04/06/17 21:59 Dose: 5 mg Sennosides (Senokot Tab) 8.6 mg PO DAILY [facility] Last Admin: 04/06/17 09:29 Dose: 8.6 mg Sodium Chloride ([place] Baby Saline 30 Ml) 0 ml AQUILES Q2H PRN PRN Reason: Dry nasal passages Thiamine HCl (Vitamin B1 Tab) 100 mg PO DAILY [facility] Last Admin: 04/06/17 09:29 Dose: 100 mg Vitamin A (Vitamin A & D Oint Ud Foilpak) 1 ea TOP BID [facility] Last Admin: 04/06/17 17:36 Dose: 1 ea Zolpidem Tartrate (Ambien) 5 mg PO HS PRN PRN Reason: Insomnia Last Admin: 04/06/17 22:57 Dose: 5 mg - Labs Labs: 04/06/17 14:09 04/06/17 14:09 PT 13.1 SECONDS (9.7-12.2) H 04/06/17 14:09 INR 1.2 04/06/17 14:09 APTT 71 SECONDS (21-34) H 04/06/17 06:41 Assessment and Plan (1) Diabetic foot infection Status: Acute (2) Gangrene of right foot Status: Acute (3) Above knee amputation of left lower extremity Status: Acute (4) HTN (hypertension) Status: Chronic (5) COPD (chronic obstructive pulmonary disease) Status: Chronic (6) Diabetes mellitus Status: Chronic (7) PAD (peripheral artery disease) Status: Chronic
[2017-04-07] MEDS: Oxycodone/Acetaminophen 5/325 mg Tab PO PRN ×2 (03:20→07:15)
[2017-04-07] MEDS: Piperacillin/Tazobact 3.375 GM in Sodium Chloride 100 ML IVPB SCH ×2 (06:00→12:34)
[2017-04-07 07:35] LABS: HEMOGLOBIN 12.2 g/dL (12.0-18.0); MEAN CORPUSCULAR HEMOGLOBIN 33.3 pg (27.0-31.0); MEAN CORPUSCULAR HGB CONC 34.3 g/dL (33.0-37.0); MEAN PLATELET VOLUME 8.7 fL (7.2-11.7); RBC 3.66 Mil/uL (4.40-5.90); RED CELL DISTRIBUTION WIDTH 14.4 % (11.5-14.5); WHITE BLOOD COUNT 7.5 K/uL (4.8-10.8)
[2017-04-07] MEDS: (Novolog) Insulin Aspart, Recombinant 100 u/ml 10 ml vial SC SCH ×4 (08:19→21:50)
[2017-04-07] MEDS: Vancomycin 1 gm/NS 200 ml 1 GM/200 ML BAG IVPB SCH ×2 (09:15→21:39)
[2017-04-07] MEDS ORDERED: Lactated Ringer's 1,000 ML IV ONE ×2 (11:11→14:45)
--- NOTE | 2017-04-07 12:12 | CP.PCM.PN ---
Subjective - Date & Time of Evaluation Date of Evaluation: 04/07/17 Time of Evaluation: 12:00 - Subjective Subjective: For surgery today, no ischemia on stress test, no aortic stenosis and no CHF, acceptable risk for cardiac complication from surgery, had BKA did well Objective - Vital Signs/Intake and Output Vital Signs (last 24 hours): Temp Pulse Resp BP Pulse Ox 98.8 F 84 20 129/84 99 04/07/17 08:07 04/07/17 08:07 04/07/17 08:07 04/07/17 08:07 04/07/17 08:07 Intake and Output: 04/07/17 04/07/17 06:59 18:59 Intake Total 601.8 901.8 Output Total 400 1000 Balance 201.8 -98.2 - Medications Medications: Current Medications Acetaminophen (Tylenol 325mg Tab) 650 mg PO Q6 PRN PRN Reason: Pain, Mild (1-3) Last Admin: 04/07/17 01:08 Dose: 650 mg Carvedilol (Coreg) 25 mg PO BID [facility] Last Admin: 04/06/17 17:36 Dose: 25 mg Clopidogrel Bisulfate (Plavix) 75 mg PO DAILY [facility] Last Admin: 04/06/17 09:28 Dose: 75 mg Gabapentin (Neurontin) 300 mg PO TID [facility] Last Admin: 04/06/17 17:36 Dose: 300 mg Piperacillin Sod/Tazobactam (Sod 3.375 gm/ Sodium Chloride) 100 mls @ 100 mls/ hr IVPB Q6H [facility] Last Admin: 04/07/17 06:00 Dose: 100 mls/hr Heparin Sodium/Sodium Chloride (Heparin 31853 Units/250ml 1/2 Normal Saline) 25 ,000 units in 250 mls @ 12.737 mls/hr IV .[id number] PRN; Protocol; 18 UNITS/KG/HR PRN Reason: ADJUST RATE PER PROTOCOL Last Admin: 04/06/17 12:15 Dose: 18 units/kg/hr, 12.737 mls/hr Vancomycin/Sodium Chloride (Vancomycin 1 Gm/Ns 200 Ml) 1 gm in 200 mls @ 133 mls/hr IVPB Q12H [facility] Stop: 04/09/17 21:01 Last Admin: 04/07/17 09:15 Dose: 133 mls/hr Lactated Ringer's (Lactated Ringer's) 1,000 mls @ 100 mls/hr IV .Q10H [facility] Last Admin: 04/06/17 22:08 Dose: 100 mls/hr Insulin Aspart (Novolog) 0 unit SC ACHS [facility] PRN Reason: Protocol Last Admin: 04/07/17 08:19 Dose: Not Given Insulin Glargine (Lantus) 30 unit SC Q12 [facility] Last Admin: 04/06/17 21:59 Dose: Not Given Lactic Acid (Lac-Hydrin 12% Lotion (225 G)) 4 gm EXT BID [facility] Last Admin: 04/06/17 17:37 Dose: 1 applic Lidocaine (Lidoderm) 1 ea TD DAILY [facility] Last Admin: 04/06/17 09:41 Dose: 1 ea Losartan Potassium (Cozaar) 25 mg PO DAILY [facility] Last Admin: 04/06/17 09:29 Dose: 25 mg Multivitamins/Minerals (Therapeutic-M Tab) 1 tab PO DAILY [facility] Last Admin: 04/06/17 09:30 Dose: 1 tab Mupirocin (Bactroban Ointment) 0 gm TOP BID [facility] Last Admin: 04/06/17 17:37 Dose: 1 applic Ondansetron HCl (Zofran Tab) 4 mg PO Q8H PRN PRN Reason: Nausea/Vomiting Oxycodone/Acetaminophen (Percocet 5/325 Mg Tab) 2 tab PO Q4 PRN PRN Reason: Pain, severe (8-10) Stop: 04/07/17 20:01 Last Admin: 04/07/17 07:15 Dose: 2 tab Rosuvastatin Calcium (Crestor) 5 mg PO HS [facility] Last Admin: 04/06/17 21:59 Dose: 5 mg Sennosides (Senokot Tab) 8.6 mg PO DAILY [facility] Last Admin: 04/06/17 09:29 Dose: 8.6 mg Sodium Chloride ([place] Baby Saline 30 Ml) 0 ml AQUILES Q2H PRN PRN Reason: Dry nasal passages Thiamine HCl (Vitamin B1 Tab) 100 mg PO DAILY [facility] Last Admin: 04/06/17 09:29 Dose: 100 mg Vitamin A (Vitamin A & D Oint Ud Foilpak) 1 ea TOP BID [facility] Last Admin: 04/06/17 17:36 Dose: 1 ea Zolpidem Tartrate (Ambien) 5 mg PO HS PRN PRN Reason: Insomnia Last Admin: 04/06/17 22:57 Dose: 5 mg - Labs Labs: 04/07/17 07:09 04/06/17 14:09 PT 13.1 SECONDS (9.7-12.2) H 04/06/17 14:09 INR 1.2 04/06/17 14:09 APTT 63 SECONDS (21-34) H D 04/07/17 07:09 - Constitutional Appears: Non-toxic - Head Exam Head Exam: ATRAUMATIC - Eye Exam Eye Exam: EOMI - ENT Exam ENT Exam: Mucous Membranes Moist - Neck Exam Neck Exam: absent: Lymphadenopathy, Thyromegaly - Respiratory Exam Respiratory Exam: Clear to Ausculation Bilateral. absent: Rales - Cardiovascular Exam Cardiovascular Exam: REGULAR RHYTHM, Murmur - GI/Abdominal Exam GI & Abdominal Exam: Normal Bowel Sounds. absent: Organomegaly - Rectal Exam Rectal Exam: Deferred - Extremities Exam Extremities Exam: Normal Capillary Refill. absent: Calf Tenderness - Neurological Exam Neurological Exam: Alert, Oriented x3 - Psychiatric Exam Psychiatric exam: Normal Affect - Skin Skin Exam: Dry Assessment and Plan (1) Pre-procedural cardiovascular examination Status: Acute (2) Atherosclerosis of left lower extremity with gangrene Status: Acute (3) Diabetic foot infection Status: Acute (4) HTN (hypertension) Status: Chronic (5) Diabetes mellitus Status: Chronic
[2017-04-07] MEDS: Ammonium Lactate 12% Lotion (225 g) EXT SCH ×2 (12:32→18:55)
[2017-04-07] MEDS: Lactated Ringer's 1,000 ML IV SCH ×2 (12:32→18:59)
[2017-04-07] MEDS: Lidocaine 5% Patch TD SCH (12:33)
[2017-04-07] MEDS: (Lantus) Insulin Glargine, Recombinant SC SCH ×2 (12:33→21:50)
[2017-04-07] MEDS: Multivitamin With Minerals Tab PO SCH (12:34)
[2017-04-07] MEDS: Vitamins A & D Oint UD Foilpak TOP SCH ×2 (12:34→17:42)
[2017-04-07] MEDS ORDERED: Propofol 10 mg/ml Inj (20 ML) ONE (12:47)
[2017-04-07] MEDS ORDERED: Midazolam 2 MG/2 ML VIAL ONE ×4 (12:47→15:03)
[2017-04-07] MEDS ORDERED: HYDROmorphone 0.5 mg/0.5 ml ISec IVP PRN ×2 (13:51→14:52)
[2017-04-07] MEDS ORDERED: Morphine 4 MG/ML VIAL ONE ×2 (14:09→14:26)
[2017-04-07] MEDS ORDERED: HYDROmorphone 1 mg/ml ISec ONE ×2 (14:44→15:24)
--- NOTE | 2017-04-07 14:46 | PCM.SURG1 ---
Surgeon's Initial Post Op Note - Surgeon's Notes Surgeon: Dr. Fernández [employer] War[employer] Systems Operator: Dr. Phillips, PGY-I, Quirino Dickerson, OMS-III, Sumit Squires, OMS-III Pre-Operative Diagnosis: Peripheral vascular disease, right lower extremity gangrene, DVT Operative Findings: See op report Post-Operative Diagnosis: As above Operation Performed: Right Below-knee amputation Specimen/Specimens Removed: Right leg Estimated Blood Loss: EBL {In ML}: 600 Blood Products Given: N/A Drains Used: No Drains Date of Surgery/Procedure: 04/07/17 Time of Surgery/Procedure: 14:47
[2017-04-07 15:42] LABS: HEMOGLOBIN 11.9 g/dL (12.0-18.0); MEAN CORPUSCULAR HEMOGLOBIN 33.1 pg (27.0-31.0); MEAN CORPUSCULAR HGB CONC 33.3 g/dL (33.0-37.0); MEAN PLATELET VOLUME 8.3 fL (7.2-11.7); RBC 3.59 Mil/uL (4.40-5.90); RED CELL DISTRIBUTION WIDTH 14.5 % (11.5-14.5); WHITE BLOOD COUNT 8.9 K/uL (4.8-10.8)
[2017-04-07 15:43] LABS: MEAN CELL VOLUME 99.3 fL (80.0-94.0)
[2017-04-07] MEDS ORDERED: HYDROmorphone 0.5 mg/0.5 ml ISec IVP ONE ×5 (15:45→16:40)
[2017-04-07] MEDS ORDERED: Midazolam 2 MG/2 ML VIAL IVP ONE (16:04)
[2017-04-07] MEDS: Piperacill/Tazo 4.5gm in Dex 4.5 GM/100 ML BAG IVPB SCH (18:58)
[2017-04-07] MEDS: HYDROmorphone 1 mg/ml ISec IVP PRN ×2 (19:32→23:59)
[2017-04-08] MEDS: Piperacill/Tazo 4.5gm in Dex 4.5 GM/100 ML BAG IVPB SCH ×3 (02:18→21:11)
--- NOTE | 2017-04-08 02:34 | OP ---
PROCEDURE DATE: 04/07/2017 PREOPERATIVE DIAGNOSIS: Gangrene of right foot. POSTOPERATIVE DIAGNOSIS: Gangrene of right foot. PROCEDURE: Right below-knee amputation. SURGEON: Ridge Fenrández Jr., MD [employer] SET UP PERSON: Dr. Phillips. ANESTHESIA ADMINISTERED BY: Dr. Jj. INDICATIONS: The patient is a middle-aged man, diabetic, previous left below-knee amputation, gangrene of the right foot, reconstructible, however, he had according to the x-ray reports and imaging reports, an acute deep vein thrombosis of the femoral and popliteal vein. Because of this, I did not feel that revascularization was a good option, and the patient requested a below knee amputation be carried out. DESCRIPTION OF PROCEDURE: The patient was given general anesthesia, intravenous antibiotics. Standard right below-knee amputation was carried out in the posterior flap. Blood loss approximately 600 cc. Fibula were cut at the appropriate levels. Flap was closed. Noncompressive dressing applied. Immobilizer applied. Blood loss, 600 mL. The operation carried out is right below-knee amputation. Ridge Fernández Jr., MD cc: Jagdeep Lee MD
[2017-04-08] MEDS: Lactated Ringer's 1,000 ML IV SCH ×3 (02:41→21:14)
[2017-04-08] MEDS: HYDROmorphone 1 mg/ml ISec IVP PRN (03:55)
[2017-04-08 07:02] LABS: BASO # 0.1 K/uL (0.0-0.2); BASO % 0.7 % (0.0-2.0); EOS # 0.2 K/uL (0.0-0.7); EOS % 2.1 % (0.0-4.0); HEMOGLOBIN 8.7 g/dL (12.0-18.0); LYMPH # 1.4 K/uL (1.0-4.3); LYMPH % 11.7 % (20.0-40.0); MEAN CELL VOLUME 98.3 fL (80.0-94.0); MEAN CORPUSCULAR HEMOGLOBIN 32.9 pg (27.0-31.0); MEAN CORPUSCULAR HGB CONC 33.5 g/dL (33.0-37.0); MEAN PLATELET VOLUME 8.4 fL (7.2-11.7); MONO % 8.1 % (0.0-10.0); NEUT # 9.2 K/uL (1.8-7.0); NEUT % 77.4 % (50.0-75.0); RBC 2.66 Mil/uL (4.40-5.90); RED CELL DISTRIBUTION WIDTH 14.1 % (11.5-14.5); WHITE BLOOD COUNT 11.8 K/uL (4.8-10.8)
[2017-04-08 07:19] LABS: BLOOD UREA NITROGEN 8 mg/dL (9-20); CALCIUM 7.9 mg/dl (8.6-10.4); GFR AFRICAN-AMERICAN > 60; GFR NON-AFRICAN AMERICAN > 60
[2017-04-08] MEDS: (Novolog) Insulin Aspart, Recombinant 100 u/ml 10 ml vial SC SCH ×4 (08:05→22:34)
[2017-04-08 08:32] VITALS: RESP 20
--- NOTE | 2017-04-08 08:58 | CP.PCM.PN ---
Subjective - Date & Time of Evaluation Date of Evaluation: 04/08/17 Time of Evaluation: 06:50 - Subjective Subjective: Vascular Surgery- Dr. Fernández Patient S&E at bedside. Complaining of severe pain in LLE. Not well controlled w / current pain regiment. Dressing C/D/I. on IV heparin therapeutic to treat DVT Objective - Vital Signs/Intake and Output Vital Signs (last 24 hours): Temp Pulse Resp BP Pulse Ox 98.6 F 91 H 20 114/70 98 04/08/17 08:31 04/08/17 08:31 04/08/17 08:31 04/08/17 08:31 04/08/17 08:31 Intake and Output: 04/08/17 04/08/17 06:59 18:59 Intake Total 950 Output Total 200 Balance 750 - Medications Medications: Current Medications Acetaminophen (Tylenol 325mg Tab) 650 mg PO Q6 PRN PRN Reason: Pain, Mild (1-3) Last Admin: 04/08/17 08:42 Dose: 650 mg Apixaban (Eliquis) 5 mg PO DAILY [facility] Carvedilol (Coreg) 25 mg PO BID [facility] Last Admin: 04/07/17 17:42 Dose: 25 mg Clopidogrel Bisulfate (Plavix) 75 mg PO DAILY [facility] Last Admin: 04/07/17 12:34 Dose: Not Given Gabapentin (Neurontin) 300 mg PO TID [facility] Last Admin: 04/07/17 17:42 Dose: 300 mg Hydromorphone HCl (Dilaudid) 1 mg IVP Q4H PRN PRN Reason: pain Last Admin: 04/08/17 03:55 Dose: 1 mg Hydromorphone/Sodium Chloride (Dilaudid Civil Estimator) 6 mg IV Q4H PRN; Protocol PRN Reason: Pain, moderate (4-7) Heparin Sodium/Sodium Chloride (Heparin 50096 Units/250ml 1/2 Normal Saline) 25 ,000 units in 250 mls @ 12.737 mls/hr IV .[id number] PRN; Protocol; 18 UNITS/KG/HR PRN Reason: ADJUST RATE PER PROTOCOL Last Admin: 04/06/17 12:15 Dose: 18 units/kg/hr, 12.737 mls/hr Vancomycin/Sodium Chloride (Vancomycin 1 Gm/Ns 200 Ml) 1 gm in 200 mls @ 133 mls/hr IVPB Q12H [facility] Stop: 04/09/17 21:01 Last Admin: 04/07/17 21:39 Dose: 133 mls/hr Lactated Ringer's (Lactated Ringer's) 1,000 mls @ 100 mls/hr IV .Q10H [facility] Last Admin: 04/08/17 02:41 Dose: 100 mls/hr Piperacillin Sod/Tazobactam Sod (Zosyn 4.5 Gm Iv Premix) 4.5 gm in 100 mls @ 100 mls/hr IVPB Q8H [facility] Last Admin: 04/08/17 02:18 Dose: 100 mls/hr Insulin Aspart (Novolog) 0 unit SC ACHS [facility] PRN Reason: Protocol Last Admin: 04/08/17 08:05 Dose: Not Given Insulin Glargine (Lantus) 30 unit SC Q12 [facility] Last Admin: 04/07/17 21:50 Dose: Not Given Ketorolac Tromethamine (Toradol) 30 mg IVP Q6 [facility] Stop: 04/09/17 12:01 Last Admin: 04/08/17 05:26 Dose: 30 mg Lactic Acid (Lac-Hydrin 12% Lotion (225 G)) 4 gm EXT BID [facility] Last Admin: 04/07/17 18:55 Dose: Not Given Lidocaine (Lidoderm) 1 ea TD DAILY [facility] Last Admin: 04/07/17 12:33 Dose: Not Given Losartan Potassium (Cozaar) 25 mg PO DAILY [facility] Last Admin: 04/07/17 12:31 Dose: Not Given Multivitamins/Minerals (Therapeutic-M Tab) 1 tab PO DAILY [facility] Last Admin: 04/07/17 12:34 Dose: Not Given Mupirocin (Bactroban Ointment) 0 gm TOP BID [facility] Last Admin: 04/07/17 17:55 Dose: 1 applic Ondansetron HCl (Zofran Tab) 4 mg PO Q8H PRN PRN Reason: Nausea/Vomiting Ondansetron HCl (Zofran Inj) 4 mg IVP Q4 PRN PRN Reason: Nausea/Vomiting Rosuvastatin Calcium (Crestor) 5 mg PO HS [facility] Last Admin: 04/07/17 21:45 Dose: 5 mg Sennosides (Senokot Tab) 8.6 mg PO DAILY [facility] Last Admin: 04/07/17 12:34 Dose: Not Given Sodium Chloride ([place] Baby Saline 30 Ml) 0 ml AQUILES Q2H PRN PRN Reason: Dry nasal passages Thiamine HCl (Vitamin B1 Tab) 100 mg PO DAILY [facility] Last Admin: 04/07/17 12:34 Dose: Not Given Vitamin A (Vitamin A & D Oint Ud Foilpak) 1 ea TOP BID [facility] Last Admin: 04/07/17 17:42 Dose: 1 ea Zolpidem Tartrate (Ambien) 5 mg PO HS PRN PRN Reason: Insomnia Last Admin: 04/07/17 22:40 Dose: 5 mg - Labs Labs: 04/08/17 06:42 04/08/17 06:42 PT 13.1 SECONDS (9.7-12.2) H 04/06/17 14:09 INR 1.2 04/06/17 14:09 APTT 63 SECONDS (21-34) H D 04/07/17 07:09 - Constitutional Appears: Non-toxic, No Acute Distress - Head Exam Head Exam: ATRAUMATIC - Eye Exam Eye Exam: EOMI. absent: Scleral icterus - ENT Exam ENT Exam: Mucous Membranes Moist - Respiratory Exam Respiratory Exam: NORMAL BREATHING PATTERN. absent: Accessory Muscle Use, Respiratory Distress - Cardiovascular Exam Cardiovascular Exam: +S1, +S2. absent: Bradycardia, Tachycardia - GI/Abdominal Exam GI & Abdominal Exam: Soft. absent: Firm, Guarding, Rigid, Tenderness - Extremities Exam Additional comments: Ravi WING. knee immobilizer on. Dressing C/D/I - Neurological Exam Neurological Exam: Alert, Awake, Oriented x3 - Skin Skin Exam: Intact, Warm Assessment and Plan - Assessment and Plan (Free Text) Assessment: 52M s/p R. BKA POD#1 Plan: - Will start MEDICAL BILLING AND CODING INSTRUCTOR for pain control - IV heparin - Abx for first 24 hrs post op - c/s ID: all recs appreciated - aggressive physical therapy - discussed w/ Dr. Fernández surgical attending PGY1
[2017-04-08] MEDS: (Lantus) Insulin Glargine, Recombinant SC SCH ×2 (09:01→22:35)
[2017-04-08] MEDS: Ammonium Lactate 12% Lotion (225 g) EXT SCH ×2 (09:03→18:20)
[2017-04-08] MEDS: Vancomycin 1 gm/NS 200 ml 1 GM/200 ML BAG IVPB SCH ×2 (09:15→22:32)
[2017-04-08] MEDS: Multivitamin With Minerals Tab PO SCH (09:22)
[2017-04-08] MEDS ORDERED: Enoxaparin 40 mg Syringe SC SCH (10:00)
--- NOTE | 2017-04-08 10:29 | CP.PCM.CON ---
History of Present Illness - History of Present Illness History of Present Illness: s/p BKA infected leg 51 year old male was seen at bedside concerning right foot dry gangrene. Pt was seen by attending, Dr. Malik, in [facility] wound care center yesterday who referred him to hospital concerning prognosis of right foot. Pt is 2 months status-post right 5th digit amputation (DOS 01/23/17). Pt reports intermittent pain in right foot, well controlled by pain medications. He denies any acute overnight events. He denies any recent n/v/f/c/sob/cp. PMHx: Anxiety, asthma/COPD, DM, HTN, HLD Allergies: NKDA PSHx: R SFA stenting (01/2017)Left AKA (07/2015), Ex Lap LAR, bowel resection, repair of colovesicular fistula (11/2015), Fem-Fem bypass 2011 at [facility] [place] SHx: smokes 1-1.5ppd x40yrs, 1 pint of vodka per day, occasional marijuana use FHx: noncontributory Review of Systems - Constitutional Constitutional: As Per HPI - EENT Eyes: absent: As Per HPI, Blind Spots, Blurred Vision, Change in Vision, Decreased Night Vision, Diplopia, Discharge, Dry Eye, Exophthalmos, Floaters, Irritation, Itchy Eyes, Loss of Peripheral Vision, Pain, Photophobia, Requires Corrective Lenses, Sees Flashes, Spots in Vision, Tunnel Vision, Other Visual Disturbances, Loss of Vision, Other Ears: absent: As Per HPI, Decreased Hearing, Ear Discharge, Ear Pain, Tinnitus, Abnormal Hearing, Disequilibrium, Dizziness, Other Nose/Mouth/Throat: absent: As Per HPI, Epistaxis, Nasal Congestion, Nasal Discharge, Nasal Obstruction, Nasal Trauma, Nose Pain, Post Nasal Drip, Sinus Pain, Sinus Pressure, Bleeding Gums, Change in Voice, Dental Pain, Dry Mouth, Dysphagia, Halitosis, Hoarsness, Lip Swelling, Mouth Lesions, Mouth Pain, Odynophagia, Sore Throat, Throat Swelling, Tongue Swelling, Facial Pain, Neck Pain, Neck Mass, Other - Cardiovascular Cardiovascular: absent: As Per HPI, Acrocyanosis, Chest Pain, Chest Pain at Rest , Chest Pain with Activity, Claudication, Diaphoresis, Dyspnea, Dyspnea on Exertion, Edema, Irregular Heart Rhythm, Pain Radiating to Arm/Neck/Jaw, Leg Edema, Leg Ulcers, Lightheadedness, Orthopnea, Palpitations, Paroxysmal Nocturnal Dyspnea, Pedal Edema, Radiating Pain, Rapid Heart Rate, Slow Heart Rate, Syncope, Other - Respiratory Respiratory: absent: As Per HPI, Cough, Dyspnea, Hemoptysis, Dyspnea on Exertion , Wheezing, Snoring, Stridor, Pain on Inspiration, Chest Congestion, Excessive Mucous Production, Change in Mucous Color, Pain with Coughing, Other - Gastrointestinal Gastrointestinal: absent: As Per HPI, Abdominal Pain, Belching, Bloating, Change in Bowel Habits, Change in Stool Character, Coffee Ground Emesis, Constipation, Cramping, Diarrhea, Dyspepsia, Dysphagia, Early Satiety, Excessive Flatus, Fecal Incontinence, Heartburn, Hematemesis, Hematochezia, Loose Stools, Melena, Nausea, Odynophagia, Temesmus, Vomiting, Other - Genitourinary Genitourinary: absent: As Per HPI, Change in Urinary Stream, Difficulty Urinating, Dysuria, Flank Pain, Hematuria, Pyuria, Nocturia, Urinary Incontinence, Urinary Frequency, Urinary Hesitance, Urinary Urgency, Voiding Freq/Small Amts, Freq UTI, Hx Renal/Bladder Calculi, Hx /Renal Surgery, Bladder Distension, Other - Reproductive: Male Reproductive:Male: As Per HPI - Musculoskeletal Musculoskeletal: As Per HPI - Integumentary Integumentary: As Per HPI - Neurological Neurological: absent: As Per HPI, Abnormal Gait, Abnormal Hearing, Abnormal Movements, Abnormal Speech, Behavioral Changes, Burning Sensations, Confusion, Convulsions, Disequilibrium, Dizziness, Numbness, Focal Weakness, Frequent Falls , Headaches, Lack of Coordination, Loss of Vision, Memory Loss, Paresthesias, Radicular Pain, Restless Legs, Sensory Deficit, Syncope, Tingling, Tremor, Vertigo, Weakness, Other Visual Disturbances, Other - Psychiatric Psychiatric: absent: As Per HPI, Abnormal Sleep Pattern, Anhedonia, Anxiety, Auditory Hallucinations, Behavioral Changes, Change in Appetite, Change in Libido, Confusion, Depression, Difficulty Concentrating, Hallucinations, Homicidal Ideation, Hopelessness, Irritability, Memory Loss, Mood Swings, Panic Attacks, Paranoia, Suicidal Ideation, Visual Hallucinations, Tactile Hallucinations, Other - Endocrine Endocrine: absent: As Per HPI, Change in Body Appearance, Change in Libido, Cold Intolorance, Deepening of Voice, Excessive Sweating, Fatigue, Flushing, Heat Intolorance, Increase in Ring/Shoe/Hat Size, Palpitations, Polydipsia, Polyphagia, Polyuria, Other - Hematologic/Lymphatic Hematologic: absent: As Per HPI, Easy Bleeding, Easy Bruising, Lymphadenopathy, Other Past Patient History - Infectious Disease Hx of Infectious Diseases: None - Past Medical History & Family History Past Medical History?: Yes - Past Social History Smoking Status: Former Smoker - CARDIAC Hx Hypercholesterolemia: Yes Hx Hypertension: Yes - PULMONARY Hx Asthma: Yes Hx Chronic Obstructive Pulmonary Disease (COPD): Yes - ENDOCRINE/METABOLIC Hx Endocrine Disorders: Yes Hx Diabetes Mellitus Type 1: Yes - INTEGUMENTARY Hx Dermatological Problems: Yes Other/Comment: PT HAS BROWN SPOTS ON ARMS AND BACK 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 - MUSCULOSKELETAL/RHEUMATOLOGICAL Hx Falls: No - GASTROINTESTINAL Hx Diverticulitis: Yes Hx Gastritis: Yes - GENITOURINARY/GYNECOLOGICAL Hx Genitourinary Disorders: Yes Hx Urinary Tract Infection: Yes Other/Comment: PT STATES HE HAS BROWN URINE AND SOME FECAL MATERIAL IN HIS URINE. - PSYCHIATRIC Hx Substance Use: No - SURGICAL HISTORY Hx Surgeries: Yes Hx Amputation: Yes (LEFT BKA) Hx Angiogram: Yes Hx Cardiac Catheterization: Yes Hx Femoral-Popliteal Bypass Graft: Yes (X 3) Hx Vascular Surgery: Yes Other/Comment: Vascular bypass surgery femoral bilateral 2011,LT. BELOW KNEE AMPUTATION, right 5th toe amputation - ANESTHESIA Hx Anesthesia: Yes Hx Anesthesia Reactions: No Hx Malignant Hyperthermia: No Meds Allergies/Adverse Reactions: Allergies Allergy/AdvReac Type Severity Reaction Status Date / Time No Known Allergies Allergy Verified 03/27/17 14:16 - Medications Medications: Current Medications Acetaminophen (Tylenol 325mg Tab) 650 mg PO Q6 PRN PRN Reason: Pain, Mild (1-3) Last Admin: 04/08/17 08:42 Dose: 650 mg Apixaban (Eliquis) 5 mg PO DAILY [facility] Last Admin: 04/08/17 09:14 Dose: 5 mg Carvedilol (Coreg) 25 mg PO BID [facility] Last Admin: 04/08/17 09:15 Dose: 25 mg Clopidogrel Bisulfate (Plavix) 75 mg PO DAILY [facility] Last Admin: 04/08/17 09:15 Dose: 75 mg Gabapentin (Neurontin) 300 mg PO TID [facility] Last Admin: 04/08/17 09:15 Dose: 300 mg Hydromorphone HCl (Dilaudid) 1 mg IVP Q4H PRN PRN Reason: pain Last Admin: 04/08/17 03:55 Dose: 1 mg Hydromorphone/Sodium Chloride (Dilaudid Toddler Lead Teacher) 6 mg IV Q4H PRN; Protocol PRN Reason: Pain, moderate (4-7) Heparin Sodium/Sodium Chloride (Heparin 57641 Units/250ml 1/2 Normal Saline) 25 ,000 units in 250 mls @ 12.737 mls/hr IV .[id number] PRN; Protocol; 18 UNITS/KG/HR PRN Reason: ADJUST RATE PER PROTOCOL Last Admin: 04/06/17 12:15 Dose: 18 units/kg/hr, 12.737 mls/hr Vancomycin/Sodium Chloride (Vancomycin 1 Gm/Ns 200 Ml) 1 gm in 200 mls @ 133 mls/hr IVPB Q12H [facility] Stop: 04/09/17 21:01 Last Admin: 04/08/17 09:15 Dose: 133 mls/hr Lactated Ringer's (Lactated Ringer's) 1,000 mls @ 100 mls/hr IV .Q10H [facility] Last Admin: 04/08/17 02:41 Dose: 100 mls/hr Piperacillin Sod/Tazobactam Sod (Zosyn 4.5 Gm Iv Premix) 4.5 gm in 100 mls @ 100 mls/hr IVPB Q8H [facility] Last Admin: 04/08/17 02:18 Dose: 100 mls/hr Insulin Aspart (Novolog) 0 unit SC ACHS [facility] PRN Reason: Protocol Last Admin: 04/08/17 08:05 Dose: Not Given Insulin Glargine (Lantus) 30 unit SC Q12 [facility] Last Admin: 04/08/17 09:01 Dose: Not Given Ketorolac Tromethamine (Toradol) 30 mg IVP Q6 [facility] Stop: 04/09/17 12:01 Last Admin: 04/08/17 05:26 Dose: 30 mg Lactic Acid (Lac-Hydrin 12% Lotion (225 G)) 4 gm EXT BID [facility] Last Admin: 04/08/17 09:03 Dose: Not Given Lidocaine (Lidoderm) 1 ea TD DAILY [facility] Last Admin: 04/07/17 12:33 Dose: Not Given Losartan Potassium (Cozaar) 25 mg PO DAILY [facility] Last Admin: 04/08/17 09:15 Dose: 25 mg Multivitamins/Minerals (Therapeutic-M Tab) 1 tab PO DAILY [facility] Last Admin: 04/08/17 09:22 Dose: 1 tab Mupirocin (Bactroban Ointment) 0 gm TOP BID [facility] Last Admin: 04/07/17 17:55 Dose: 1 applic Ondansetron HCl (Zofran Tab) 4 mg PO Q8H PRN PRN Reason: Nausea/Vomiting Ondansetron HCl (Zofran Inj) 4 mg IVP Q4 PRN PRN Reason: Nausea/Vomiting Rosuvastatin Calcium (Crestor) 5 mg PO HS [facility] Last Admin: 04/07/17 21:45 Dose: 5 mg Sennosides (Senokot Tab) 8.6 mg PO DAILY [facility] Last Admin: 04/08/17 09:14 Dose: 8.6 mg Sodium Chloride ([place] Baby Saline 30 Ml) 0 ml AQUILES Q2H PRN PRN Reason: Dry nasal passages Thiamine HCl (Vitamin B1 Tab) 100 mg PO DAILY [facility] Last Admin: 04/08/17 09:15 Dose: 100 mg Vitamin A (Vitamin A & D Oint Ud Foilpak) 1 ea TOP BID [facility] Last Admin: 04/07/17 17:42 Dose: 1 ea Zolpidem Tartrate (Ambien) 5 mg PO HS PRN PRN Reason: Insomnia Last Admin: 04/07/17 22:40 Dose: 5 mg Physical Exam - Constitutional Appears: Non-toxic, Chronically Ill - Head Exam Head Exam: NORMOCEPHALIC - Eye Exam Eye Exam: PERRL. absent: Scleral icterus - ENT Exam ENT Exam: Normal External Ear Exam - Neck Exam Neck exam: Negative for: Lymphadenopathy - Respiratory Exam Respiratory Exam: Decreased Breath Sounds, Clear to Auscultation Bilateral - Cardiovascular Exam Cardiovascular Exam: REGULAR RHYTHM, +S1, +S2 - GI/Abdominal Exam GI & Abdominal Exam: Diminished Bowel Sounds, Soft. absent: Tenderness - Rectal Exam Rectal Exam: Deferred - Exam Exam: NORMAL INSPECTION - Extremities Exam Extremities exam: Negative for: pedal pulses present Additional comments: left aka right bka - Back Exam Back exam: absent: CVA tenderness (L), CVA tenderness (R) - Neurological Exam Neurological exam: Alert, CN II-XII Intact, Oriented x3, Reflexes Normal - Psychiatric Exam Psychiatric exam: Depressed - Skin Skin Exam: Dry Results - Vital Signs Recent Vital Signs: Last Vital Signs Temp 98.6 F 04/08/17 08:31 Pulse 91 H 04/08/17 08:31 Resp 20 04/08/17 08:31 BP 114/70 04/08/17 09:15 Pulse Ox 98 04/08/17 08:31 - Labs Result Diagrams: 04/08/17 06:42 04/08/17 06:42 Labs: Laboratory Results - last 24 hr 04/07/17 04/07/17 04/07/17 15:33 16:39 21:43 WBC 8.9 RBC 3.59 L Hgb 11.9 L Hct 35.6 MCV 99.3 H D MCH 33.1 H MCHC 33.3 RDW 14.5 Plt Count 226 MPV 8.3 Neut % (Auto) Lymph % (Auto) [place] % (Auto) Eos % (Auto) Baso % (Auto) Neut # (Auto) Lymph # (Auto) [place] # (Auto) Eos # (Auto) Baso # (Auto) Sodium Potassium Chloride Carbon Dioxide Anion Gap BUN Creatinine Est GFR ( Amer) Est GFR (Non-Af Amer) POC Glucose (mg/dL) 117 H 150 H Random Glucose Calcium 04/08/17 04/08/17 04/08/17 06:42 06:42 07:17 WBC 11.8 H RBC 2.66 L Hgb 8.7 L D Hct 26.1 L MCV 98.3 H MCH 32.9 H MCHC 33.5 RDW 14.1 Plt Count 212 MPV 8.4 Neut % (Auto) 77.4 H Lymph % (Auto) 11.7 L [place] % (Auto) 8.1 Eos % (Auto) 2.1 Baso % (Auto) 0.7 Neut # (Auto) 9.2 H Lymph # (Auto) 1.4 [place] # (Auto) 1.0 H Eos # (Auto) 0.2 Baso # (Auto) 0.1 Sodium 138 Potassium 3.2 L Chloride 105 Carbon Dioxide 21 L Anion Gap 16 BUN 8 L Creatinine 0.8 Est GFR ( Amer) > 60 Est GFR (Non-Af Amer) > 60 POC Glucose (mg/dL) 121 H Random Glucose 144 H Calcium 7.9 L Assessment & Plan (1) Diabetic foot infection Status: Acute (2) Gangrene of right foot Status: Acute (3) Status post below knee amputation of right lower extremity Status: Acute (4) Above knee amputation of left lower extremity Status: Acute (5) Atherosclerosis of left lower extremity with gangrene Status: Acute - Assessment and Plan (Free Text) Assessment: cont iv rx for 7 days
[2017-04-08] MEDS ORDERED: Potassium Chloride 20 mEq ER Tab PO ONE (11:45)
[2017-04-08] MEDS: Vitamins A & D Oint UD Foilpak TOP SCH ×2 (12:58→22:33)
--- NOTE | 2017-04-08 12:58 | CP.PCM.PN ---
Subjective - Date & Time of Evaluation Date of Evaluation: 04/08/17 Time of Evaluation: 13:00 - Subjective Subjective: Stable postop observe with infectious disease, low grade fever Objective - Vital Signs/Intake and Output Vital Signs (last 24 hours): Temp Pulse Resp BP Pulse Ox 98.6 F 91 H 20 114/70 98 04/08/17 08:31 04/08/17 08:31 04/08/17 08:31 04/08/17 09:15 04/08/17 08:31 Intake and Output: 04/08/17 04/08/17 06:59 18:59 Intake Total 950 Output Total 200 Balance 750 - Medications Medications: Current Medications Acetaminophen (Tylenol 325mg Tab) 650 mg PO Q6 PRN PRN Reason: Pain, Mild (1-3) Last Admin: 04/08/17 08:42 Dose: 650 mg Apixaban (Eliquis) 5 mg PO DAILY [facility] Last Admin: 04/08/17 09:14 Dose: 5 mg Carvedilol (Coreg) 25 mg PO BID [facility] Last Admin: 04/08/17 09:15 Dose: 25 mg Clopidogrel Bisulfate (Plavix) 75 mg PO DAILY [facility] Last Admin: 04/08/17 09:15 Dose: 75 mg Gabapentin (Neurontin) 300 mg PO TID [facility] Last Admin: 04/08/17 09:15 Dose: 300 mg Hydromorphone HCl (Dilaudid) 1 mg IVP Q4H PRN PRN Reason: pain Last Admin: 04/08/17 03:55 Dose: 1 mg Hydromorphone/Sodium Chloride (Dilaudid Calibration Checker) 6 mg IV Q4H PRN; Protocol PRN Reason: Pain, moderate (4-7) Last Admin: 04/08/17 11:03 Dose: 6 mg Heparin Sodium/Sodium Chloride (Heparin 88501 Units/250ml 1/2 Normal Saline) 25 ,000 units in 250 mls @ 12.737 mls/hr IV .[id number] PRN; Protocol; 18 UNITS/KG/HR PRN Reason: ADJUST RATE PER PROTOCOL Last Admin: 04/06/17 12:15 Dose: 18 units/kg/hr, 12.737 mls/hr Vancomycin/Sodium Chloride (Vancomycin 1 Gm/Ns 200 Ml) 1 gm in 200 mls @ 133 mls/hr IVPB Q12H [facility] Stop: 04/09/17 21:01 Last Admin: 04/08/17 09:15 Dose: 133 mls/hr Lactated Ringer's (Lactated Ringer's) 1,000 mls @ 100 mls/hr IV .Q10H [facility] Last Admin: 04/08/17 02:41 Dose: 100 mls/hr Piperacillin Sod/Tazobactam Sod (Zosyn 4.5 Gm Iv Premix) 4.5 gm in 100 mls @ 100 mls/hr IVPB Q8H [facility] Last Admin: 04/08/17 02:18 Dose: 100 mls/hr Insulin Aspart (Novolog) 0 unit SC ACHS [facility] PRN Reason: Protocol Last Admin: 04/08/17 08:05 Dose: Not Given Insulin Glargine (Lantus) 30 unit SC Q12 [facility] Last Admin: 04/08/17 09:01 Dose: Not Given Ketorolac Tromethamine (Toradol) 30 mg IVP Q6 [facility] Stop: 04/09/17 12:01 Last Admin: 04/08/17 05:26 Dose: 30 mg Lactic Acid (Lac-Hydrin 12% Lotion (225 G)) 4 gm EXT BID [facility] Last Admin: 04/08/17 09:03 Dose: Not Given Lidocaine (Lidoderm) 1 ea TD DAILY [facility] Last Admin: 04/07/17 12:33 Dose: Not Given Losartan Potassium (Cozaar) 25 mg PO DAILY [facility] Last Admin: 04/08/17 09:15 Dose: 25 mg Multivitamins/Minerals (Therapeutic-M Tab) 1 tab PO DAILY [facility] Last Admin: 04/08/17 09:22 Dose: 1 tab Mupirocin (Bactroban Ointment) 0 gm TOP BID [facility] Last Admin: 04/07/17 17:55 Dose: 1 applic Ondansetron HCl (Zofran Tab) 4 mg PO Q8H PRN PRN Reason: Nausea/Vomiting Ondansetron HCl (Zofran Inj) 4 mg IVP Q4 PRN PRN Reason: Nausea/Vomiting Potassium Chloride (Potassium Chloride Oral Soln) 40 meq PO Q4 [facility] Stop: 04/08/17 16:01 Rosuvastatin Calcium (Crestor) 5 mg PO HS [facility] Last Admin: 04/07/17 21:45 Dose: 5 mg Sennosides (Senokot Tab) 8.6 mg PO DAILY [facility] Last Admin: 04/08/17 09:14 Dose: 8.6 mg Sodium Chloride ([place] Baby Saline 30 Ml) 0 ml AQUILES Q2H PRN PRN Reason: Dry nasal passages Thiamine HCl (Vitamin B1 Tab) 100 mg PO DAILY [facility] Last Admin: 04/08/17 09:15 Dose: 100 mg Vitamin A (Vitamin A & D Oint Ud Foilpak) 1 ea TOP BID [facility] Last Admin: 04/07/17 17:42 Dose: 1 ea Zolpidem Tartrate (Ambien) 5 mg PO HS PRN PRN Reason: Insomnia Last Admin: 04/07/17 22:40 Dose: 5 mg - Labs Labs: 04/08/17 06:42 04/08/17 06:42 PT 13.1 SECONDS (9.7-12.2) H 04/06/17 14:09 INR 1.2 04/06/17 14:09 APTT 63 SECONDS (21-34) H D 04/07/17 07:09 - Constitutional Appears: Non-toxic - Head Exam Head Exam: ATRAUMATIC - Eye Exam Eye Exam: EOMI - ENT Exam ENT Exam: Mucous Membranes Moist - Neck Exam Neck Exam: absent: Lymphadenopathy, Thyromegaly - Respiratory Exam Respiratory Exam: Clear to Ausculation Bilateral. absent: Rales - Cardiovascular Exam Cardiovascular Exam: REGULAR RHYTHM, Murmur - GI/Abdominal Exam GI & Abdominal Exam: Normal Bowel Sounds. absent: Organomegaly - Rectal Exam Rectal Exam: Deferred - Extremities Exam Extremities Exam: Tenderness - Neurological Exam Neurological Exam: Alert, Oriented x3 - Psychiatric Exam Psychiatric exam: Normal Mood - Skin Skin Exam: Dry Assessment and Plan (1) Pre-procedural cardiovascular examination Status: Acute (2) Atherosclerosis of left lower extremity with gangrene Status: Acute (3) Diabetic foot infection Status: Acute (4) HTN (hypertension) Status: Chronic (5) Diabetes mellitus Status: Chronic
[2017-04-08] MEDS: Lidocaine 5% Patch TD SCH (13:03)
[2017-04-08] MEDS: Potassium Chloride 20 mEq/15 ml LIQ UD PO SCH ×2 (13:34→19:58)
[2017-04-08] MEDS ORDERED: Potassium Chloride 20 mEq/15 ml LIQ UD PO ONE ×2 (18:30→19:45)
--- NOTE | 2017-04-08 23:01 | CP.PCM.PN ---
Subjective - Date & Time of Evaluation Date of Evaluation: 04/07/17 Time of Evaluation: 19:35 Objective - Vital Signs/Intake and Output Vital Signs (last 24 hours): Temp Pulse Resp BP Pulse Ox 100.2 F H 91 H 20 128/64 100 04/08/17 16:54 04/08/17 16:54 04/08/17 16:54 04/08/17 18:18 04/08/17 16:54 Intake and Output: 04/08/17 04/09/17 18:59 06:59 Intake Total 1100 Output Total 900 Balance 200 - Medications Medications: Current Medications Acetaminophen (Tylenol 325mg Tab) 650 mg PO Q6 PRN PRN Reason: Pain, Mild (1-3) Last Admin: 04/08/17 21:09 Dose: 650 mg Apixaban (Eliquis) 5 mg PO DAILY [facility] Last Admin: 04/08/17 09:14 Dose: 5 mg Carvedilol (Coreg) 25 mg PO BID [facility] Last Admin: 04/08/17 18:18 Dose: 25 mg Clopidogrel Bisulfate (Plavix) 75 mg PO DAILY [facility] Last Admin: 04/08/17 09:15 Dose: 75 mg Gabapentin (Neurontin) 300 mg PO TID [facility] Last Admin: 04/08/17 18:21 Dose: 300 mg Hydromorphone HCl (Dilaudid) 1 mg IVP Q4H PRN PRN Reason: pain Last Admin: 04/08/17 03:55 Dose: 1 mg Hydromorphone/Sodium Chloride (Dilaudid Instructor Private) 6 mg IV Q4H PRN; Protocol PRN Reason: Pain, moderate (4-7) Last Admin: 04/08/17 20:13 Dose: 6 mg Vancomycin/Sodium Chloride (Vancomycin 1 Gm/Ns 200 Ml) 1 gm in 200 mls @ 133 mls/hr IVPB Q12H [facility] Stop: 04/09/17 21:01 Last Admin: 04/08/17 22:32 Dose: 133 mls/hr Lactated Ringer's (Lactated Ringer's) 1,000 mls @ 100 mls/hr IV .Q10H [facility] Last Admin: 04/08/17 21:14 Dose: Not Given Piperacillin Sod/Tazobactam Sod (Zosyn 4.5 Gm Iv Premix) 4.5 gm in 100 mls @ 100 mls/hr IVPB Q8H [facility] Last Admin: 04/08/17 21:11 Dose: 100 mls/hr Insulin Aspart (Novolog) 0 unit SC ACHS [facility] PRN Reason: Protocol Last Admin: 04/08/17 22:34 Dose: Not Given Insulin Glargine (Lantus) 30 unit SC Q12 [facility] Last Admin: 04/08/17 22:35 Dose: Not Given Ketorolac Tromethamine (Toradol) 30 mg IVP Q6 [facility] Stop: 04/09/17 12:01 Last Admin: 04/08/17 22:34 Dose: Not Given Lactic Acid (Lac-Hydrin 12% Lotion (225 G)) 4 gm EXT BID [facility] Last Admin: 04/08/17 18:20 Dose: Not Given Lidocaine (Lidoderm) 1 ea TD DAILY [facility] Last Admin: 04/08/17 13:03 Dose: Not Given Losartan Potassium (Cozaar) 25 mg PO DAILY [facility] Last Admin: 04/08/17 09:15 Dose: 25 mg Multivitamins/Minerals (Therapeutic-M Tab) 1 tab PO DAILY [facility] Last Admin: 04/08/17 09:22 Dose: 1 tab Mupirocin (Bactroban Ointment) 0 gm TOP BID [facility] Last Admin: 04/08/17 18:17 Dose: Not Given Ondansetron HCl (Zofran Tab) 4 mg PO Q8H PRN PRN Reason: Nausea/Vomiting Ondansetron HCl (Zofran Inj) 4 mg IVP Q4 PRN PRN Reason: Nausea/Vomiting Rosuvastatin Calcium (Crestor) 5 mg PO HS [facility] Last Admin: 04/08/17 21:13 Dose: 5 mg Sennosides (Senokot Tab) 8.6 mg PO DAILY [facility] Last Admin: 04/08/17 09:14 Dose: 8.6 mg Sodium Chloride ([place] Baby Saline 30 Ml) 0 ml AQUILES Q2H PRN PRN Reason: Dry nasal passages Thiamine HCl (Vitamin B1 Tab) 100 mg PO DAILY [facility] Last Admin: 04/08/17 09:15 Dose: 100 mg Vitamin A (Vitamin A & D Oint Ud Foilpak) 1 ea TOP BID [facility] Last Admin: 04/08/17 22:33 Dose: Not Given Zolpidem Tartrate (Ambien) 5 mg PO HS PRN PRN Reason: Insomnia Last Admin: 04/08/17 21:11 Dose: 5 mg - Labs Labs: 04/08/17 06:42 04/08/17 06:42 PT 13.1 SECONDS (9.7-12.2) H 04/06/17 14:09 INR 1.2 04/06/17 14:09 APTT 63 SECONDS (21-34) H D 04/07/17 07:09 Assessment and Plan (1) Diabetic foot infection Status: Acute (2) Gangrene of right foot Status: Acute (3) Above knee amputation of left lower extremity Status: Acute (4) HTN (hypertension) Status: Chronic (5) COPD (chronic obstructive pulmonary disease) Status: Chronic (6) Diabetes mellitus Status: Chronic (7) PAD (peripheral artery disease) Status: Chronic
--- NOTE | 2017-04-08 23:01 | CP.PCM.PN ---
Subjective - Date & Time of Evaluation Date of Evaluation: 04/08/17 Time of Evaluation: 17:25 - Subjective Subjective: Pt seen and examined, c/o intenmse pain and cant sleep at night pt is given pt conteol anesthesia pump for pain control Objective - Vital Signs/Intake and Output Vital Signs (last 24 hours): Temp Pulse Resp BP Pulse Ox 100.2 F H 91 H 20 128/64 100 04/08/17 16:54 04/08/17 16:54 04/08/17 16:54 04/08/17 18:18 04/08/17 16:54 Intake and Output: 04/08/17 04/09/17 18:59 06:59 Intake Total 1100 Output Total 900 Balance 200 - Medications Medications: Current Medications Acetaminophen (Tylenol 325mg Tab) 650 mg PO Q6 PRN PRN Reason: Pain, Mild (1-3) Last Admin: 04/08/17 21:09 Dose: 650 mg Apixaban (Eliquis) 5 mg PO DAILY [facility] Last Admin: 04/08/17 09:14 Dose: 5 mg Carvedilol (Coreg) 25 mg PO BID [facility] Last Admin: 04/08/17 18:18 Dose: 25 mg Clopidogrel Bisulfate (Plavix) 75 mg PO DAILY [facility] Last Admin: 04/08/17 09:15 Dose: 75 mg Gabapentin (Neurontin) 300 mg PO TID [facility] Last Admin: 04/08/17 18:21 Dose: 300 mg Hydromorphone HCl (Dilaudid) 1 mg IVP Q4H PRN PRN Reason: pain Last Admin: 04/08/17 03:55 Dose: 1 mg Hydromorphone/Sodium Chloride (Dilaudid Dairy Nutrition Consultant) 6 mg IV Q4H PRN; Protocol PRN Reason: Pain, moderate (4-7) Last Admin: 04/08/17 20:13 Dose: 6 mg Vancomycin/Sodium Chloride (Vancomycin 1 Gm/Ns 200 Ml) 1 gm in 200 mls @ 133 mls/hr IVPB Q12H [facility] Stop: 04/09/17 21:01 Last Admin: 04/08/17 22:32 Dose: 133 mls/hr Lactated Ringer's (Lactated Ringer's) 1,000 mls @ 100 mls/hr IV .Q10H [facility] Last Admin: 02/27/18 21:14 Dose: Not Given Piperacillin Sod/Tazobactam Sod (Zosyn 4.5 Gm Iv Premix) 4.5 gm in 100 mls @ 100 mls/hr IVPB Q8H [facility] Last Admin: 04/08/17 21:11 Dose: 100 mls/hr Insulin Aspart (Novolog) 0 unit SC ACHS [facility] PRN Reason: Protocol Last Admin: 04/08/17 22:34 Dose: Not Given Insulin Glargine (Lantus) 30 unit SC Q12 [facility] Last Admin: 04/08/17 22:35 Dose: Not Given Ketorolac Tromethamine (Toradol) 30 mg IVP Q6 [facility] Stop: 04/09/17 12:01 Last Admin: 04/08/17 22:34 Dose: Not Given Lactic Acid (Lac-Hydrin 12% Lotion (225 G)) 4 gm EXT BID [facility] Last Admin: 04/08/17 18:20 Dose: Not Given Lidocaine (Lidoderm) 1 ea TD DAILY [facility] Last Admin: 04/08/17 13:03 Dose: Not Given Losartan Potassium (Cozaar) 25 mg PO DAILY [facility] Last Admin: 04/08/17 09:15 Dose: 25 mg Multivitamins/Minerals (Therapeutic-M Tab) 1 tab PO DAILY [facility] Last Admin: 04/08/17 09:22 Dose: 1 tab Mupirocin (Bactroban Ointment) 0 gm TOP BID [facility] Last Admin: 04/08/17 18:17 Dose: Not Given Ondansetron HCl (Zofran Tab) 4 mg PO Q8H PRN PRN Reason: Nausea/Vomiting Ondansetron HCl (Zofran Inj) 4 mg IVP Q4 PRN PRN Reason: Nausea/Vomiting Rosuvastatin Calcium (Crestor) 5 mg PO HS [facility] Last Admin: 04/08/17 21:13 Dose: 5 mg Sennosides (Senokot Tab) 8.6 mg PO DAILY [facility] Last Admin: 04/08/17 09:14 Dose: 8.6 mg Sodium Chloride ([place] Baby Saline 30 Ml) 0 ml AQUILES Q2H PRN PRN Reason: Dry nasal passages Thiamine HCl (Vitamin B1 Tab) 100 mg PO DAILY [facility] Last Admin: 04/08/17 09:15 Dose: 100 mg Vitamin A (Vitamin A & D Oint Ud Foilpak) 1 ea TOP BID [facility] Last Admin: 04/08/17 22:33 Dose: Not Given Zolpidem Tartrate (Ambien) 5 mg PO HS PRN PRN Reason: Insomnia Last Admin: 04/08/17 21:11 Dose: 5 mg - Labs Labs: 04/08/17 06:42 04/08/17 06:42 PT 13.1 SECONDS (9.7-12.2) H 04/06/17 14:09 INR 1.2 04/06/17 14:09 APTT 63 SECONDS (21-34) H D 04/07/17 07:09 Assessment and Plan (1) Diabetic foot infection Status: Acute (2) Gangrene of right foot Status: Acute (3) Above knee amputation of left lower extremity Status: Acute (4) HTN (hypertension) Status: Chronic (5) COPD (chronic obstructive pulmonary disease) Status: Chronic (6) Diabetes mellitus Status: Chronic (7) PAD (peripheral artery disease) Status: Chronic (8) Status post below knee amputation of right lower extremity Status: Acute
[2017-04-09] MEDS: Piperacill/Tazo 4.5gm in Dex 4.5 GM/100 ML BAG IVPB SCH ×3 (02:32→18:00)
[2017-04-09] MEDS: Lactated Ringer's 1,000 ML IV SCH (02:34)
[2017-04-09] MEDS: (Novolog) Insulin Aspart, Recombinant 100 u/ml 10 ml vial SC SCH ×4 (08:01→22:00)
[2017-04-09] MEDS: Ammonium Lactate 12% Lotion (225 g) EXT SCH ×2 (09:03→17:47)
[2017-04-09] MEDS: Lidocaine 5% Patch TD SCH (09:05)
[2017-04-09] MEDS: Multivitamin With Minerals Tab PO SCH (09:07)
[2017-04-09] MEDS: Vancomycin 1 gm/NS 200 ml 1 GM/200 ML BAG IVPB SCH ×2 (09:07→21:27)
[2017-04-09] MEDS: Vitamins A & D Oint UD Foilpak TOP SCH ×2 (09:08→18:00)
[2017-04-09] MEDS: (Lantus) Insulin Glargine, Recombinant SC SCH ×3 (10:22→21:21)
[2017-04-09] MEDS ORDERED: Potassium Chloride 20 mEq ER Tab PO ONE ×2 (10:30→12:00)
[2017-04-09] MEDS ORDERED: HYDROmorphone 1 mg/ml ISec IVP PRN (11:45)
--- NOTE | 2017-04-09 12:43 | CP.PCM.PN ---
Subjective - Date & Time of Evaluation Date of Evaluation: 04/09/17 Time of Evaluation: 13:00 - Subjective Subjective: Low-grade fever post surgery, on management for pain, stable hemodynamically Objective - Vital Signs/Intake and Output Vital Signs (last 24 hours): Temp Pulse Resp BP Pulse Ox 100.2 F H 91 H 20 113/72 100 04/08/17 16:54 04/08/17 16:54 04/08/17 16:54 04/09/17 09:04 04/08/17 16:54 Intake and Output: 04/09/17 04/09/17 06:59 18:59 Intake Total 2300 Output Total 1500 Balance 800 - Medications Medications: Current Medications Acetaminophen (Tylenol 325mg Tab) 650 mg PO Q6 PRN PRN Reason: Pain, Mild (1-3) Last Admin: 04/09/17 06:28 Dose: 650 mg Apixaban (Eliquis) 5 mg PO DAILY [facility] Last Admin: 04/09/17 09:05 Dose: 5 mg Carvedilol (Coreg) 25 mg PO BID [facility] Last Admin: 04/09/17 09:04 Dose: 25 mg Clopidogrel Bisulfate (Plavix) 75 mg PO DAILY [facility] Last Admin: 04/09/17 09:06 Dose: 75 mg Gabapentin (Neurontin) 300 mg PO TID [facility] Last Admin: 04/09/17 09:06 Dose: 300 mg Hydromorphone HCl (Dilaudid) 1 mg IVP Q3H PRN PRN Reason: Pain, Mild (1-3) Hydromorphone/Sodium Chloride (Dilaudid Automotive Machinist Apprentice) 6 mg IV Q4H PRN; Protocol PRN Reason: Pain, moderate (4-7) Last Admin: 04/08/17 20:13 Dose: 6 mg Vancomycin/Sodium Chloride (Vancomycin 1 Gm/Ns 200 Ml) 1 gm in 200 mls @ 133 mls/hr IVPB Q12H [facility] Stop: 04/09/17 21:01 Last Admin: 04/09/17 09:07 Dose: 133 mls/hr Piperacillin Sod/Tazobactam Sod (Zosyn 4.5 Gm Iv Premix) 4.5 gm in 100 mls @ 100 mls/hr IVPB Q8H [facility] Last Admin: 04/09/17 11:09 Dose: 100 mls/hr Insulin Aspart (Novolog) 0 unit SC ACHS [facility] PRN Reason: Protocol Last Admin: 04/09/17 08:01 Dose: Not Given Insulin Glargine (Lantus) 30 unit SC Q12 [facility] Last Admin: 04/09/17 10:22 Dose: Not Given Lactic Acid (Lac-Hydrin 12% Lotion (225 G)) 4 gm EXT BID [facility] Last Admin: 04/09/17 09:03 Dose: 1 applic Lidocaine (Lidoderm) 1 ea TD DAILY [facility] Last Admin: 04/09/17 09:05 Dose: 1 ea Losartan Potassium (Cozaar) 25 mg PO DAILY [facility] Last Admin: 04/09/17 09:05 Dose: 25 mg Multivitamins/Minerals (Therapeutic-M Tab) 1 tab PO DAILY [facility] Last Admin: 04/09/17 09:07 Dose: 1 tab Mupirocin (Bactroban Ointment) 0 gm TOP BID [facility] Last Admin: 04/09/17 09:03 Dose: 1 applic Ondansetron HCl (Zofran Tab) 4 mg PO Q8H PRN PRN Reason: Nausea/Vomiting Ondansetron HCl (Zofran Inj) 4 mg IVP Q4 PRN PRN Reason: Nausea/Vomiting Rosuvastatin Calcium (Crestor) 5 mg PO HS [facility] Last Admin: 04/08/17 21:13 Dose: 5 mg Sennosides (Senokot Tab) 8.6 mg PO DAILY [facility] Last Admin: 04/09/17 09:07 Dose: 8.6 mg Sodium Chloride ([place] Baby Saline 30 Ml) 0 ml AQUILES Q2H PRN PRN Reason: Dry nasal passages Thiamine HCl (Vitamin B1 Tab) 100 mg PO DAILY [facility] Last Admin: 04/09/17 09:08 Dose: 100 mg Vitamin A (Vitamin A & D Oint Ud Foilpak) 1 ea TOP BID [facility] Last Admin: 04/09/17 09:08 Dose: 1 ea Zolpidem Tartrate (Ambien) 5 mg PO HS PRN PRN Reason: Insomnia Last Admin: 04/08/17 21:11 Dose: 5 mg - Labs Labs: 04/08/17 06:42 04/08/17 06:42 PT 13.1 SECONDS (9.7-12.2) H 04/06/17 14:09 INR 1.2 04/06/17 14:09 APTT 63 SECONDS (21-34) H D 04/07/17 07:09 - Constitutional Appears: Non-toxic - Head Exam Head Exam: ATRAUMATIC - Eye Exam Eye Exam: EOMI - ENT Exam ENT Exam: Mucous Membranes Moist - Neck Exam Neck Exam: absent: Lymphadenopathy, Thyromegaly - Respiratory Exam Respiratory Exam: Clear to Ausculation Bilateral. absent: Rales - Cardiovascular Exam Cardiovascular Exam: REGULAR RHYTHM, Murmur - GI/Abdominal Exam GI & Abdominal Exam: Normal Bowel Sounds. absent: Organomegaly - Rectal Exam Rectal Exam: Deferred - Extremities Exam Extremities Exam: Normal Capillary Refill. absent: Calf Tenderness - Neurological Exam Neurological Exam: Alert, Oriented x3 - Psychiatric Exam Psychiatric exam: Normal Mood - Skin Skin Exam: Dry Assessment and Plan (1) Pre-procedural cardiovascular examination Status: Acute (2) Atherosclerosis of left lower extremity with gangrene Status: Acute (3) Diabetic foot infection Status: Acute (4) HTN (hypertension) Status: Chronic (5) Diabetes mellitus Status: Chronic
[2017-04-09] MEDS ORDERED: HYDROmorphone 0.5 mg/0.5 ml ISec IVP PRN (15:57)
[2017-04-09] MEDS: HYDROmorphone 1 mg/ml ISec IVP PRN ×2 (17:37→21:11)
--- NOTE | 2017-04-09 19:22 | CP.PCM.PN ---
Subjective - Date & Time of Evaluation Date of Evaluation: 04/09/17 Time of Evaluation: 15:00 - Subjective Subjective: Vascular Surgery- Dr. Fernández Patient S&E at bedside. Complaining of severe pain in LLE. Not well controlled w / current pain regiment. Dressing C/I w/ some drainage. on IV heparin therapeutic to treat DVT Objective - Vital Signs/Intake and Output Vital Signs (last 24 hours): Temp Pulse Resp BP Pulse Ox 98.1 F 88 20 108/79 97 04/09/17 15:15 04/09/17 15:15 04/09/17 15:15 04/09/17 17:33 04/09/17 15:15 Intake and Output: 04/09/17 04/10/17 18:59 06:59 Intake Total 1280 Balance 1280 - Medications Medications: Current Medications Acetaminophen (Tylenol 325mg Tab) 650 mg PO Q6 PRN PRN Reason: Pain, Mild (1-3) Last Admin: 04/09/17 17:42 Dose: 650 mg Apixaban (Eliquis) 5 mg PO DAILY [facility] Last Admin: 04/09/17 09:05 Dose: 5 mg Carvedilol (Coreg) 25 mg PO BID [facility] Last Admin: 04/09/17 17:33 Dose: 25 mg Clopidogrel Bisulfate (Plavix) 75 mg PO DAILY [facility] Last Admin: 04/09/17 09:06 Dose: 75 mg Gabapentin (Neurontin) 300 mg PO TID [facility] Last Admin: 04/09/17 17:33 Dose: 300 mg Hydromorphone HCl (Dilaudid) 1 mg IVP Q3H PRN PRN Reason: Pain, Mild (1-3) Last Admin: 04/09/17 17:37 Dose: 1 mg Vancomycin/Sodium Chloride (Vancomycin 1 Gm/Ns 200 Ml) 1 gm in 200 mls @ 133 mls/hr IVPB Q12H [facility] Stop: 04/09/17 21:01 Last Admin: 04/09/17 09:07 Dose: 133 mls/hr Piperacillin Sod/Tazobactam Sod (Zosyn 4.5 Gm Iv Premix) 4.5 gm in 100 mls @ 100 mls/hr IVPB Q8H [facility] Last Admin: 04/09/17 11:09 Dose: 100 mls/hr Insulin Aspart (Novolog) 0 unit SC ACHS [facility] PRN Reason: Protocol Last Admin: 04/09/17 16:40 Dose: Not Given Insulin Glargine (Lantus) 30 unit SC Q12 [facility] Last Admin: 04/09/17 10:22 Dose: Not Given Lactic Acid (Lac-Hydrin 12% Lotion (225 G)) 4 gm EXT BID [facility] Last Admin: 04/09/17 17:47 Dose: Not Given Lidocaine (Lidoderm) 1 ea TD DAILY [facility] Last Admin: 04/09/17 09:05 Dose: 1 ea Losartan Potassium (Cozaar) 25 mg PO DAILY [facility] Last Admin: 04/09/17 09:05 Dose: 25 mg Multivitamins/Minerals (Therapeutic-M Tab) 1 tab PO DAILY [facility] Last Admin: 04/09/17 09:07 Dose: 1 tab Mupirocin (Bactroban Ointment) 0 gm TOP BID [facility] Last Admin: 04/09/17 17:46 Dose: Not Given Ondansetron HCl (Zofran Tab) 4 mg PO Q8H PRN PRN Reason: Nausea/Vomiting Ondansetron HCl (Zofran Inj) 4 mg IVP Q4 PRN PRN Reason: Nausea/Vomiting Rosuvastatin Calcium (Crestor) 5 mg PO HS [facility] Last Admin: 04/08/17 21:13 Dose: 5 mg Sennosides (Senokot Tab) 8.6 mg PO DAILY [facility] Last Admin: 04/09/17 09:07 Dose: 8.6 mg Sodium Chloride ([place] Baby Saline 30 Ml) 0 ml AQUILES Q2H PRN PRN Reason: Dry nasal passages Thiamine HCl (Vitamin B1 Tab) 100 mg PO DAILY [facility] Last Admin: 04/09/17 09:08 Dose: 100 mg Vitamin A (Vitamin A & D Oint Ud Foilpak) 1 ea TOP BID [facility] Last Admin: 04/09/17 09:08 Dose: 1 ea Zolpidem Tartrate (Ambien) 5 mg PO HS PRN PRN Reason: Insomnia Last Admin: 04/08/17 21:11 Dose: 5 mg - Labs Labs: 04/08/17 06:42 04/08/17 06:42 PT 13.1 SECONDS (9.7-12.2) H 04/06/17 14:09 INR 1.2 04/06/17 14:09 APTT 63 SECONDS (21-34) H D 04/07/17 07:09 - Constitutional Appears: Non-toxic, No Acute Distress - Head Exam Head Exam: ATRAUMATIC - Eye Exam Eye Exam: EOMI. absent: Scleral icterus - ENT Exam ENT Exam: Mucous Membranes Moist - Respiratory Exam Respiratory Exam: absent: Accessory Muscle Use, Respiratory Distress - Cardiovascular Exam Cardiovascular Exam: +S1, +S2. absent: Bradycardia, Tachycardia - GI/Abdominal Exam GI & Abdominal Exam: Soft. absent: Guarding, Rigid, Tenderness - Extremities Exam Additional comments: Ravi WING: in immobilizer dressing w/ some drainage; No signs of bleeding - Neurological Exam Neurological Exam: Alert, Awake, Oriented x3 - Psychiatric Exam Psychiatric exam: Normal Affect - Skin Skin Exam: Warm Assessment and Plan - Assessment and Plan (Free Text) Assessment: 52M s/p Ravi WING POD#2 Plan: - Pain control PRN - keep leg in immobilizer - IV heparin - c/s ID- all recs apprecaited * IV abx for 1 week - c/s ID: all recs appreciated - aggressive physical therapy - discussed w/ Dr. Fernández surgical attending PGY1
--- NOTE | 2017-04-09 23:25 | CP.PCM.PN ---
Subjective - Date & Time of Evaluation Date of Evaluation: 04/09/17 Time of Evaluation: 19:00 - Subjective Subjective: Pt seen and examined , right now pt c/o epistaxis , i put eliquis on hold, pt is off MAILROOM CLERK pump, on IV Dilaudid due to right LE pain Objective - Vital Signs/Intake and Output Vital Signs (last 24 hours): Temp Pulse Resp BP Pulse Ox 98.1 F 88 20 108/79 97 04/09/17 15:15 04/09/17 15:15 04/09/17 15:15 04/09/17 17:33 04/09/17 15:15 Intake and Output: 04/09/17 04/10/17 18:59 06:59 Intake Total 1280 300 Output Total 400 Balance 1280 -100 - Medications Medications: Current Medications Acetaminophen (Tylenol 325mg Tab) 650 mg PO Q6 PRN PRN Reason: Pain, Mild (1-3) Last Admin: 04/09/17 17:42 Dose: 650 mg Carvedilol (Coreg) 25 mg PO BID [facility] Last Admin: 04/09/17 17:33 Dose: 25 mg Clopidogrel Bisulfate (Plavix) 75 mg PO DAILY [facility] Last Admin: 04/09/17 09:06 Dose: 75 mg Gabapentin (Neurontin) 300 mg PO TID [facility] Last Admin: 04/09/17 17:33 Dose: 300 mg Hydromorphone HCl (Dilaudid) 1 mg IVP Q3H PRN PRN Reason: Pain, Mild (1-3) Last Admin: 04/09/17 21:11 Dose: 1 mg Piperacillin Sod/Tazobactam Sod (Zosyn 4.5 Gm Iv Premix) 4.5 gm in 100 mls @ 100 mls/hr IVPB Q8H [facility] Last Admin: 04/09/17 18:00 Dose: 100 mls/hr Insulin Aspart (Novolog) 0 unit SC ACHS [facility] PRN Reason: Protocol Last Admin: 04/09/17 16:40 Dose: Not Given Insulin Glargine (Lantus) 30 unit SC Q12 [facility] Last Admin: 04/09/17 21:21 Dose: Not Given Lactic Acid (Lac-Hydrin 12% Lotion (225 G)) 4 gm EXT BID [facility] Last Admin: 04/09/17 17:47 Dose: Not Given Lidocaine (Lidoderm) 1 ea TD DAILY [facility] Last Admin: 04/09/17 09:05 Dose: 1 ea Losartan Potassium (Cozaar) 25 mg PO DAILY [facility] Last Admin: 04/09/17 09:05 Dose: 25 mg Multivitamins/Minerals (Therapeutic-M Tab) 1 tab PO DAILY [facility] Last Admin: 04/09/17 09:07 Dose: 1 tab Mupirocin (Bactroban Ointment) 0 gm TOP BID [facility] Last Admin: 04/09/17 17:46 Dose: Not Given Ondansetron HCl (Zofran Tab) 4 mg PO Q8H PRN PRN Reason: Nausea/Vomiting Ondansetron HCl (Zofran Inj) 4 mg IVP Q4 PRN PRN Reason: Nausea/Vomiting Rosuvastatin Calcium (Crestor) 5 mg PO HS [facility] Last Admin: 04/09/17 21:19 Dose: 5 mg Sennosides (Senokot Tab) 8.6 mg PO DAILY [facility] Last Admin: 04/09/17 09:07 Dose: 8.6 mg Sodium Chloride ([place] Baby Saline 30 Ml) 0 ml AQUILES Q2H PRN PRN Reason: Dry nasal passages Thiamine HCl (Vitamin B1 Tab) 100 mg PO DAILY [facility] Last Admin: 04/09/17 09:08 Dose: 100 mg Vitamin A (Vitamin A & D Oint Ud Foilpak) 1 ea TOP BID [facility] Last Admin: 04/09/17 18:00 Dose: Not Given Zolpidem Tartrate (Ambien) 5 mg PO HS PRN PRN Reason: Insomnia Last Admin: 04/09/17 21:19 Dose: 5 mg - Labs Labs: 04/08/17 06:42 04/08/17 06:42 PT 13.1 SECONDS (9.7-12.2) H 04/06/17 14:09 INR 1.2 04/06/17 14:09 APTT 63 SECONDS (21-34) H D 04/07/17 07:09 - Constitutional Appears: No Acute Distress - Head Exam Head Exam: ATRAUMATIC, NORMAL INSPECTION, NORMOCEPHALIC - Eye Exam Eye Exam: EOMI, Normal appearance, PERRL Pupil Exam: NORMAL ACCOMODATION, PERRL - Respiratory Exam Respiratory Exam: Clear to Ausculation Bilateral, NORMAL BREATHING PATTERN - Cardiovascular Exam Cardiovascular Exam: REGULAR RHYTHM, +S1, +S2. absent: Murmur - GI/Abdominal Exam GI & Abdominal Exam: Soft, Normal Bowel Sounds. absent: Tenderness Assessment and Plan (1) Diabetic foot infection Assessment & Plan: ACCU check wound care Status: Acute (2) Gangrene of right foot Status: Acute (3) Above knee amputation of left lower extremity Status: Acute (4) HTN (hypertension) Status: Chronic (5) COPD (chronic obstructive pulmonary disease) Status: Chronic (6) Diabetes mellitus Status: Chronic (7) PAD (peripheral artery disease) Status: Chronic (8) Status post below knee amputation of right lower extremity Status: Acute
[2017-04-10] MEDS: Piperacill/Tazo 4.5gm in Dex 4.5 GM/100 ML BAG IVPB SCH ×3 (02:05→18:00)
[2017-04-10] MEDS: HYDROmorphone 1 mg/ml ISec IVP PRN ×2 (02:28→05:40)
[2017-04-10] MEDS: (Novolog) Insulin Aspart, Recombinant 100 u/ml 10 ml vial SC SCH ×4 (07:44→21:56)
[2017-04-10 07:49] LABS: BASO # 0.1 K/uL (0.0-0.2); BASO % 0.6 % (0.0-2.0); EOS # 0.3 K/uL (0.0-0.7); HEMOGLOBIN 8.3 g/dL (12.0-18.0); LYMPH # 1.1 K/uL (1.0-4.3); MEAN CELL VOLUME 98.8 fL (80.0-94.0); MEAN CORPUSCULAR HEMOGLOBIN 33.6 pg (27.0-31.0); MEAN PLATELET VOLUME 9.1 fL (7.2-11.7); MONO # 0.8 K/uL (0.0-0.8); NEUT # 8.7 K/uL (1.8-7.0); NEUT % 79.4 % (50.0-75.0); NRBC % 0.1 % (0.0-2.0); RBC 2.48 Mil/uL (4.40-5.90); RED CELL DISTRIBUTION WIDTH 14.5 % (11.5-14.5); WHITE BLOOD COUNT 10.9 K/uL (4.8-10.8)
--- NOTE | 2017-04-10 08:29 | CP.PCM.PN ---
Subjective - Date & Time of Evaluation Date of Evaluation: 04/10/17 Time of Evaluation: 08:00 - Subjective Subjective: Surgery Progress note. Dr. Fernández Pt seen and examined at bedside. No acute events overnight. Does report his pain is well tolerated on current regimen, is willing to try transitioning on PO meds. No new complaints. Using Straight leg brace to right lower extremity. Objective - Vital Signs/Intake and Output Vital Signs (last 24 hours): Temp Pulse Resp BP Pulse Ox 98.8 F 92 H 20 148/78 100 04/10/17 07:36 04/10/17 07:36 04/10/17 07:36 04/10/17 07:36 04/10/17 07:36 Intake and Output: 04/10/17 04/10/17 06:59 18:59 Intake Total 600 Output Total 900 Balance -300 - Medications Medications: Current Medications Acetaminophen (Tylenol 325mg Tab) 650 mg PO Q6 PRN PRN Reason: Pain, Mild (1-3) Last Admin: 04/10/17 05:02 Dose: 650 mg Carvedilol (Coreg) 25 mg PO BID [facility] Last Admin: 04/09/17 17:33 Dose: 25 mg Clopidogrel Bisulfate (Plavix) 75 mg PO DAILY [facility] Last Admin: 04/09/17 09:06 Dose: 75 mg Gabapentin (Neurontin) 300 mg PO TID [facility] Last Admin: 04/09/17 17:33 Dose: 300 mg Piperacillin Sod/Tazobactam Sod (Zosyn 4.5 Gm Iv Premix) 4.5 gm in 100 mls @ 100 mls/hr IVPB Q8H [facility] Last Admin: 04/10/17 02:05 Dose: 100 mls/hr Insulin Aspart (Novolog) 0 unit SC ACHS [facility] PRN Reason: Protocol Last Admin: 04/10/17 07:44 Dose: Not Given Insulin Glargine (Lantus) 30 unit SC Q12 [facility] Last Admin: 04/09/17 21:21 Dose: Not Given Lactic Acid (Lac-Hydrin 12% Lotion (225 G)) 4 gm EXT BID [facility] Last Admin: 04/09/17 17:47 Dose: Not Given Lidocaine (Lidoderm) 1 ea TD DAILY [facility] Last Admin: 04/09/17 09:05 Dose: 1 ea Losartan Potassium (Cozaar) 25 mg PO DAILY [facility] Last Admin: 04/09/17 09:05 Dose: 25 mg Multivitamins/Minerals (Therapeutic-M Tab) 1 tab PO DAILY [facility] Last Admin: 04/09/17 09:07 Dose: 1 tab Mupirocin (Bactroban Ointment) 0 gm TOP BID [facility] Last Admin: 04/09/17 17:46 Dose: Not Given Ondansetron HCl (Zofran Tab) 4 mg PO Q8H PRN PRN Reason: Nausea/Vomiting Ondansetron HCl (Zofran Inj) 4 mg IVP Q4 PRN PRN Reason: Nausea/Vomiting Oxycodone/Acetaminophen (Percocet 5/325 Mg Tab) 2 tab PO Q4H PRN PRN Reason: Pain, moderate (4-7) Stop: 04/13/17 08:01 Rosuvastatin Calcium (Crestor) 5 mg PO HS [facility] Last Admin: 04/09/17 21:19 Dose: 5 mg Sennosides (Senokot Tab) 8.6 mg PO DAILY [facility] Last Admin: 04/09/17 09:07 Dose: 8.6 mg Sodium Chloride ([place] Baby Saline 30 Ml) 0 ml AQUILES Q2H PRN PRN Reason: Dry nasal passages Thiamine HCl (Vitamin B1 Tab) 100 mg PO DAILY [facility] Last Admin: 04/09/17 09:08 Dose: 100 mg Vitamin A (Vitamin A & D Oint Ud Foilpak) 1 ea TOP BID [facility] Last Admin: 04/09/17 18:00 Dose: Not Given Zolpidem Tartrate (Ambien) 5 mg PO HS PRN PRN Reason: Insomnia Last Admin: 04/09/17 21:19 Dose: 5 mg - Labs Labs: 04/10/17 07:16 04/08/17 06:42 PT 13.1 SECONDS (9.7-12.2) H 04/06/17 14:09 INR 1.2 04/06/17 14:09 APTT 63 SECONDS (21-34) H D 04/07/17 07:09 - Constitutional Appears: Well, No Acute Distress - Head Exam Head Exam: ATRAUMATIC, NORMAL INSPECTION, NORMOCEPHALIC - ENT Exam ENT Exam: Mucous Membranes Moist, Normal Exam - Respiratory Exam Respiratory Exam: NORMAL BREATHING PATTERN. absent: Accessory Muscle Use, Respiratory Distress - GI/Abdominal Exam GI & Abdominal Exam: Soft. absent: Guarding, Rigid, Tenderness - Extremities Exam Additional comments: right lower extremity dressing clean, dry and intact. Straight leg brace in place. - Neurological Exam Neurological Exam: Alert, Awake, Oriented x3 - Psychiatric Exam Psychiatric exam: Normal Affect, Normal Mood - Skin Skin Exam: Dry, Intact, Normal Color, Warm Assessment and Plan - Assessment and Plan (Free Text) Assessment: 52yo M s/p R BKA on 04/07 Plan: - Pain management: transition to PO - aggressive physical therapy - will need to resume therapeutic treatment for DVT once cleared as per primary Further recs as per Dr. Pradeep Sevilla PGY1 surgery pager: [phone]
[2017-04-10] MEDS: HYDROmorphone 0.5 mg/0.5 ml ISec IVP PRN ×5 (08:47→23:02)
[2017-04-10 09:28] LABS: BLOOD UREA NITROGEN 9 mg/dL (9-20); CALCIUM 7.8 mg/dl (8.6-10.4); GFR AFRICAN-AMERICAN > 60; GFR NON-AFRICAN AMERICAN > 60
[2017-04-10] MEDS: Lidocaine 5% Patch TD SCH (10:21)
[2017-04-10] MEDS: Vitamins A & D Oint UD Foilpak TOP SCH ×2 (10:22→18:00)
[2017-04-10] MEDS: (Lantus) Insulin Glargine, Recombinant SC SCH ×2 (10:24→21:55)
[2017-04-10] MEDS: Multivitamin With Minerals Tab PO SCH (10:24)
[2017-04-10] MEDS: Oxycodone/Acetaminophen 5/325 mg Tab PO PRN ×3 (10:28→21:53)
[2017-04-10] MEDS: Ammonium Lactate 12% Lotion (225 g) EXT SCH ×2 (10:31→17:23)
--- NOTE | 2017-04-10 22:37 | CP.PCM.PN ---
Subjective - Date & Time of Evaluation Date of Evaluation: 04/10/17 Time of Evaluation: 17:00 - Subjective Subjective: Pt seen and examined at bedside, pt c/o intense pain on his left BKA site, he is on IV dilaudid Objective - Vital Signs/Intake and Output Vital Signs (last 24 hours): Temp Pulse Resp BP Pulse Ox 98.6 F 91 H 20 150/65 98 04/10/17 15:15 04/10/17 15:15 04/10/17 15:15 04/10/17 17:19 04/10/17 15:15 Intake and Output: 04/10/17 04/11/17 18:59 06:59 Intake Total 500 Output Total 600 Balance -100 - Medications Medications: Current Medications Acetaminophen (Tylenol 325mg Tab) 650 mg PO Q6 PRN PRN Reason: Pain, Mild (1-3) Last Admin: 04/10/17 05:02 Dose: 650 mg Carvedilol (Coreg) 25 mg PO BID [facility] Last Admin: 04/10/17 17:19 Dose: 25 mg Clopidogrel Bisulfate (Plavix) 75 mg PO DAILY [facility] Last Admin: 04/10/17 10:24 Dose: 75 mg Gabapentin (Neurontin) 300 mg PO TID [facility] Last Admin: 04/10/17 17:18 Dose: 300 mg Hydromorphone HCl (Dilaudid) 0.5 mg IVP Q3H PRN PRN Reason: Pain, severe (8-10) Last Admin: 04/10/17 19:23 Dose: 0.5 mg Piperacillin Sod/Tazobactam Sod (Zosyn 4.5 Gm Iv Premix) 4.5 gm in 100 mls @ 100 mls/hr IVPB Q8H [facility] Last Admin: 04/10/17 18:00 Dose: 100 mls/hr Insulin Aspart (Novolog) 0 unit SC ACHS [facility] PRN Reason: Protocol Last Admin: 04/10/17 21:56 Dose: Not Given Insulin Glargine (Lantus) 30 unit SC Q12 [facility] Last Admin: 04/10/17 21:55 Dose: Not Given Lactic Acid (Lac-Hydrin 12% Lotion (225 G)) 4 gm EXT BID [facility] Last Admin: 04/10/17 17:23 Dose: 1 applic Lidocaine (Lidoderm) 1 ea TD DAILY [facility] Last Admin: 04/10/17 10:21 Dose: 1 ea Losartan Potassium (Cozaar) 25 mg PO DAILY [facility] Last Admin: 04/10/17 10:23 Dose: 25 mg Multivitamins/Minerals (Therapeutic-M Tab) 1 tab PO DAILY [facility] Last Admin: 04/10/17 10:24 Dose: 1 tab Mupirocin (Bactroban Ointment) 0 gm TOP BID [facility] Last Admin: 04/10/17 17:23 Dose: 1 applic Ondansetron HCl (Zofran Tab) 4 mg PO Q8H PRN PRN Reason: Nausea/Vomiting Ondansetron HCl (Zofran Inj) 4 mg IVP Q4 PRN PRN Reason: Nausea/Vomiting Oxycodone/Acetaminophen (Percocet 5/325 Mg Tab) 2 tab PO Q4H PRN PRN Reason: Pain, moderate (4-7) Stop: 04/13/17 08:01 Last Admin: 04/10/17 21:53 Dose: 2 tab Rosuvastatin Calcium (Crestor) 5 mg PO HS [facility] Last Admin: 04/10/17 21:54 Dose: 5 mg Sennosides (Senokot Tab) 8.6 mg PO DAILY [facility] Last Admin: 04/10/17 10:24 Dose: Not Given Sodium Chloride ([place] Baby Saline 30 Ml) 0 ml AQUILES Q2H PRN PRN Reason: Dry nasal passages Thiamine HCl (Vitamin B1 Tab) 100 mg PO DAILY [facility] Last Admin: 04/10/17 10:25 Dose: 100 mg Vitamin A (Vitamin A & D Oint Ud Foilpak) 1 ea TOP BID [facility] Last Admin: 04/10/17 18:00 Dose: 1 ea Zolpidem Tartrate (Ambien) 5 mg PO HS PRN PRN Reason: Insomnia Last Admin: 04/10/17 21:53 Dose: 5 mg - Labs Labs: 04/10/17 07:16 04/10/17 07:16 PT 13.1 SECONDS (9.7-12.2) H 04/06/17 14:09 INR 1.2 04/06/17 14:09 APTT 63 SECONDS (21-34) H D 04/07/17 07:09 - Constitutional Appears: No Acute Distress - Head Exam Head Exam: ATRAUMATIC, NORMAL INSPECTION, NORMOCEPHALIC - Eye Exam Eye Exam: EOMI, Normal appearance, PERRL Pupil Exam: NORMAL ACCOMODATION, PERRL - Cardiovascular Exam Cardiovascular Exam: REGULAR RHYTHM, +S1, +S2. absent: Murmur - GI/Abdominal Exam GI & Abdominal Exam: Soft, Normal Bowel Sounds. absent: Tenderness Assessment and Plan (1) Diabetic foot infection Status: Acute (2) Gangrene of right foot Status: Acute (3) Above knee amputation of left lower extremity Status: Acute (4) HTN (hypertension) Status: Chronic (5) COPD (chronic obstructive pulmonary disease) Status: Chronic (6) Diabetes mellitus Status: Chronic (7) PAD (peripheral artery disease) Status: Chronic (8) Status post below knee amputation of right lower extremity Status: Acute
[2017-04-11] MEDS: Piperacill/Tazo 4.5gm in Dex 4.5 GM/100 ML BAG IVPB SCH ×3 (02:02→17:57)
[2017-04-11] MEDS: Oxycodone/Acetaminophen 5/325 mg Tab PO PRN ×5 (02:05→22:15)
[2017-04-11] MEDS: HYDROmorphone 0.5 mg/0.5 ml ISec IVP PRN ×6 (06:05→23:03)
[2017-04-11] MEDS: (Novolog) Insulin Aspart, Recombinant 100 u/ml 10 ml vial SC SCH ×4 (08:30→21:51)
[2017-04-11] MEDS: Vitamins A & D Oint UD Foilpak TOP SCH ×2 (10:33→21:53)
[2017-04-11] MEDS: Ammonium Lactate 12% Lotion (225 g) EXT SCH ×2 (11:00→21:50)
[2017-04-11] MEDS: Multivitamin With Minerals Tab PO SCH (11:00)
[2017-04-11] MEDS: (Lantus) Insulin Glargine, Recombinant SC SCH ×2 (11:00→21:50)
[2017-04-11] MEDS: Lidocaine 5% Patch TD SCH (11:00)
[2017-04-11 13:51] LABS: BASO # 0.1 K/uL (0.0-0.2); EOS # 0.5 K/uL (0.0-0.7); EOS % 4.8 % (0.0-4.0); HEMOGLOBIN 8.7 g/dL (12.0-18.0); LYMPH # 1.3 K/uL (1.0-4.3); LYMPH % 13.7 % (20.0-40.0); MEAN CELL VOLUME 97.8 fL (80.0-94.0); MEAN CORPUSCULAR HEMOGLOBIN 33.7 pg (27.0-31.0); MEAN CORPUSCULAR HGB CONC 34.5 g/dL (33.0-37.0); MEAN PLATELET VOLUME 8.5 fL (7.2-11.7); MONO # 0.7 K/uL (0.0-0.8); NEUT # 7.2 K/uL (1.8-7.0); NEUT % 73.5 % (50.0-75.0); RBC 2.56 Mil/uL (4.40-5.90); RED CELL DISTRIBUTION WIDTH 14.3 % (11.5-14.5); WHITE BLOOD COUNT 9.7 K/uL (4.8-10.8)
[2017-04-11 13:55] LABS: INR 1.2; PROTHROMBIN TIME 13.7 SECONDS (9.7-12.2)
[2017-04-11 14:03] LABS: ALB/GLOB RATIO 0.7 (1.0-2.1); ALT/SGPT 41 U/L (21-72); AST/SGOT 45 U/L (17-59); BLOOD UREA NITROGEN 5 mg/dL (9-20); CALCIUM 8.3 mg/dl (8.6-10.4); GFR AFRICAN-AMERICAN > 60; GFR NON-AFRICAN AMERICAN > 60
--- NOTE | 2017-04-11 18:23 | CP.PCM.PN ---
Subjective - Date & Time of Evaluation Date of Evaluation: 04/11/17 Time of Evaluation: 10:00 - Subjective Subjective: c/o severe pain no fever no chest pain no cough right stump dressing in tact no pus Objective - Vital Signs/Intake and Output Vital Signs (last 24 hours): Temp Pulse Resp BP Pulse Ox 97.8 F 84 20 124/70 96 04/11/17 16:27 04/11/17 16:27 04/11/17 16:27 04/11/17 17:56 04/11/17 16:27 Intake and Output: 04/11/17 04/11/17 06:59 18:59 Intake Total 850 400 Output Total 1050 600 Balance -200 -200 - Medications Medications: Current Medications Acetaminophen (Tylenol 325mg Tab) 650 mg PO Q6 PRN PRN Reason: Pain, Mild (1-3) Last Admin: 04/11/17 12:00 Dose: 650 mg Carvedilol (Coreg) 25 mg PO BID [facility] Last Admin: 04/11/17 17:56 Dose: 25 mg Clopidogrel Bisulfate (Plavix) 75 mg PO DAILY [facility] Last Admin: 04/11/17 11:55 Dose: Not Given Gabapentin (Neurontin) 300 mg PO TID [facility] Last Admin: 04/11/17 17:56 Dose: 300 mg Hydromorphone HCl (Dilaudid) 0.5 mg IVP Q3H PRN PRN Reason: Pain, severe (8-10) Last Admin: 04/11/17 16:40 Dose: 0.5 mg Piperacillin Sod/Tazobactam Sod (Zosyn 4.5 Gm Iv Premix) 4.5 gm in 100 mls @ 100 mls/hr IVPB Q8H [facility] Last Admin: 04/11/17 17:57 Dose: 100 mls/hr Insulin Aspart (Novolog) 0 unit SC ACHS [facility] PRN Reason: Protocol Last Admin: 04/11/17 17:57 Dose: Not Given Insulin Glargine (Lantus) 30 unit SC Q12 [facility] Last Admin: 04/11/17 11:00 Dose: Not Given Lactic Acid (Lac-Hydrin 12% Lotion (225 G)) 4 gm EXT BID [facility] Last Admin: 04/11/17 11:00 Dose: Not Given Lidocaine (Lidoderm) 1 ea TD DAILY [facility] Last Admin: 04/11/17 11:00 Dose: 1 ea Losartan Potassium (Cozaar) 25 mg PO DAILY [facility] Last Admin: 04/11/17 10:31 Dose: 25 mg Multivitamins/Minerals (Therapeutic-M Tab) 1 tab PO DAILY [facility] Last Admin: 04/11/17 11:00 Dose: 1 tab Mupirocin (Bactroban Ointment) 0 gm TOP BID [facility] Last Admin: 04/11/17 11:00 Dose: Not Given Ondansetron HCl (Zofran Tab) 4 mg PO Q8H PRN PRN Reason: Nausea/Vomiting Ondansetron HCl (Zofran Inj) 4 mg IVP Q4 PRN PRN Reason: Nausea/Vomiting Oxycodone/Acetaminophen (Percocet 5/325 Mg Tab) 2 tab PO Q4H PRN PRN Reason: Pain, moderate (4-7) Stop: 04/13/17 08:01 Last Admin: 04/11/17 18:15 Dose: 2 tab Rosuvastatin Calcium (Crestor) 5 mg PO HS [facility] Last Admin: 04/10/17 21:54 Dose: 5 mg Sennosides (Senokot Tab) 8.6 mg PO DAILY [facility] Last Admin: 04/11/17 11:00 Dose: Not Given Sodium Chloride ([place] Baby Saline 30 Ml) 0 ml AQUILES Q2H PRN PRN Reason: Dry nasal passages Thiamine HCl (Vitamin B1 Tab) 100 mg PO DAILY [facility] Last Admin: 04/11/17 10:31 Dose: 100 mg Vitamin A (Vitamin A & D Oint Ud Foilpak) 1 ea TOP BID [facility] Last Admin: 04/11/17 10:33 Dose: 1 ea Zolpidem Tartrate (Ambien) 5 mg PO HS PRN PRN Reason: Insomnia Last Admin: 04/10/17 21:53 Dose: 5 mg - Labs Labs: 04/11/17 13:45 04/11/17 13:47 PT 13.7 SECONDS (9.7-12.2) H 04/11/17 13:45 INR 1.2 04/11/17 13:45 APTT 63 SECONDS (21-34) H D 04/07/17 07:09 - Constitutional Appears: Non-toxic, Chronically Ill - Head Exam Head Exam: NORMOCEPHALIC - Eye Exam Eye Exam: PERRL - ENT Exam ENT Exam: Mucous Membranes Dry - Neck Exam Neck Exam: absent: Lymphadenopathy - Respiratory Exam Respiratory Exam: Decreased Breath Sounds - Cardiovascular Exam Cardiovascular Exam: REGULAR RHYTHM - GI/Abdominal Exam GI & Abdominal Exam: Distended - Rectal Exam Rectal Exam: Deferred - Exam Exam: NORMAL INSPECTION - Extremities Exam Additional comments: bilat amp - Back Exam Back Exam: absent: CVA tenderness (L), CVA tenderness (R) - Neurological Exam Neurological Exam: Alert, Awake, Oriented x3 - Psychiatric Exam Psychiatric exam: Depressed Assessment and Plan (1) Diabetic foot infection Status: Acute (2) Gangrene of right foot Status: Acute (3) Status post below knee amputation of right lower extremity Status: Acute (4) Above knee amputation of left lower extremity Status: Acute (5) Atherosclerosis of left lower extremity with gangrene Status: Acute - Assessment and Plan (Free Text) Assessment: cont iv rx as ordered discussed with Dr Lee
--- NOTE | 2017-04-11 19:48 | CP.PCM.PN ---
Subjective - Date & Time of Evaluation Date of Evaluation: 04/11/17 Time of Evaluation: 07:05 - Subjective Subjective: Vascular Surgery Progress note. Dr. Fernández Pt seen and examined at bedside. no acute events overnight. Still complains of pain and is managed on current regimen. No F/C. no N/V/D. No Abd pain. Tolerating diet. Objective - Vital Signs/Intake and Output Vital Signs (last 24 hours): Temp Pulse Resp BP Pulse Ox 97.8 F 84 20 124/70 96 04/11/17 16:27 04/11/17 16:27 04/11/17 16:27 04/11/17 17:56 04/11/17 16:27 Intake and Output: 04/11/17 04/12/17 18:59 06:59 Intake Total 400 Output Total 600 Balance -200 - Medications Medications: Current Medications Acetaminophen (Tylenol 325mg Tab) 650 mg PO Q6 PRN PRN Reason: Pain, Mild (1-3) Last Admin: 04/11/17 12:00 Dose: 650 mg Carvedilol (Coreg) 25 mg PO BID [facility] Last Admin: 04/11/17 17:56 Dose: 25 mg Clopidogrel Bisulfate (Plavix) 75 mg PO DAILY [facility] Last Admin: 04/11/17 11:55 Dose: Not Given Gabapentin (Neurontin) 300 mg PO TID [facility] Last Admin: 04/11/17 17:56 Dose: 300 mg Hydromorphone HCl (Dilaudid) 0.5 mg IVP Q3H PRN PRN Reason: Pain, severe (8-10) Last Admin: 04/11/17 16:40 Dose: 0.5 mg Piperacillin Sod/Tazobactam Sod (Zosyn 4.5 Gm Iv Premix) 4.5 gm in 100 mls @ 100 mls/hr IVPB Q8H [facility] Last Admin: 04/11/17 17:57 Dose: 100 mls/hr Insulin Aspart (Novolog) 0 unit SC ACHS [facility] PRN Reason: Protocol Last Admin: 04/11/17 17:57 Dose: Not Given Insulin Glargine (Lantus) 30 unit SC Q12 [facility] Last Admin: 04/11/17 11:00 Dose: Not Given Lactic Acid (Lac-Hydrin 12% Lotion (225 G)) 4 gm EXT BID [facility] Last Admin: 04/11/17 11:00 Dose: Not Given Lidocaine (Lidoderm) 1 ea TD DAILY [facility] Last Admin: 04/11/17 11:00 Dose: 1 ea Losartan Potassium (Cozaar) 25 mg PO DAILY [facility] Last Admin: 04/11/17 10:31 Dose: 25 mg Multivitamins/Minerals (Therapeutic-M Tab) 1 tab PO DAILY [facility] Last Admin: 04/11/17 11:00 Dose: 1 tab Mupirocin (Bactroban Ointment) 0 gm TOP BID [facility] Last Admin: 04/11/17 11:00 Dose: Not Given Ondansetron HCl (Zofran Tab) 4 mg PO Q8H PRN PRN Reason: Nausea/Vomiting Ondansetron HCl (Zofran Inj) 4 mg IVP Q4 PRN PRN Reason: Nausea/Vomiting Oxycodone/Acetaminophen (Percocet 5/325 Mg Tab) 2 tab PO Q4H PRN PRN Reason: Pain, moderate (4-7) Stop: 04/13/17 08:01 Last Admin: 04/11/17 18:15 Dose: 2 tab Rosuvastatin Calcium (Crestor) 5 mg PO HS [facility] Last Admin: 04/10/17 21:54 Dose: 5 mg Sennosides (Senokot Tab) 8.6 mg PO DAILY [facility] Last Admin: 04/11/17 11:00 Dose: Not Given Sodium Chloride ([place] Baby Saline 30 Ml) 0 ml AQUILES Q2H PRN PRN Reason: Dry nasal passages Thiamine HCl (Vitamin B1 Tab) 100 mg PO DAILY [facility] Last Admin: 04/11/17 10:31 Dose: 100 mg Vitamin A (Vitamin A & D Oint Ud Foilpak) 1 ea TOP BID [facility] Last Admin: 04/11/17 10:33 Dose: 1 ea Zolpidem Tartrate (Ambien) 5 mg PO HS PRN PRN Reason: Insomnia Last Admin: 04/10/17 21:53 Dose: 5 mg - Labs Labs: 04/11/17 13:45 04/11/17 13:47 PT 13.7 SECONDS (9.7-12.2) H 04/11/17 13:45 INR 1.2 04/11/17 13:45 APTT 63 SECONDS (21-34) H D 04/07/17 07:09 - Constitutional Appears: Well, Non-toxic, No Acute Distress - Head Exam Head Exam: ATRAUMATIC, NORMAL INSPECTION, NORMOCEPHALIC - Eye Exam Eye Exam: EOMI - ENT Exam ENT Exam: Mucous Membranes Moist - Respiratory Exam Respiratory Exam: NORMAL BREATHING PATTERN. absent: Accessory Muscle Use, Respiratory Distress - Cardiovascular Exam Cardiovascular Exam: absent: JVD - GI/Abdominal Exam GI & Abdominal Exam: Soft. absent: Distended, Firm, Guarding, Rigid - Extremities Exam Additional comments: RLE dressing in place. Clean, dry and intact. - Neurological Exam Neurological Exam: Alert, Awake, Oriented x3 - Psychiatric Exam Psychiatric exam: Normal Affect, Normal Mood - Skin Skin Exam: Dry, Intact, Normal Color, Warm Assessment and Plan - Assessment and Plan (Free Text) Assessment: 52yo M s/p R BKA on 04/07. 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 Pradeep Sevilla PGY1 surgery pager: [phone]
--- NOTE | 2017-04-11 22:49 | CP.PCM.PN ---
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 in getting better, no fever, chills, chest pain Objective - Vital Signs/Intake and Output Vital Signs (last 24 hours): Temp Pulse Resp BP Pulse Ox 97.8 F 84 20 124/70 96 04/11/17 16:27 04/11/17 16:27 04/11/17 16:27 04/11/17 17:56 04/11/17 16:27 Intake and Output: 04/11/17 04/12/17 18:59 06:59 Intake Total 400 Output Total 600 Balance -200 - Medications Medications: Current Medications Acetaminophen (Tylenol 325mg Tab) 650 mg PO Q6 PRN PRN Reason: Pain, Mild (1-3) Last Admin: 04/11/17 12:00 Dose: 650 mg Carvedilol (Coreg) 25 mg PO BID [facility] Last Admin: 04/11/17 17:56 Dose: 25 mg Clopidogrel Bisulfate (Plavix) 75 mg PO DAILY [facility] Last Admin: 04/11/17 11:55 Dose: Not Given Gabapentin (Neurontin) 300 mg PO TID [facility] Last Admin: 04/11/17 17:56 Dose: 300 mg Hydromorphone HCl (Dilaudid) 0.5 mg IVP Q3H PRN PRN Reason: Pain, severe (8-10) Last Admin: 04/11/17 19:40 Dose: 0.5 mg Piperacillin Sod/Tazobactam Sod (Zosyn 4.5 Gm Iv Premix) 4.5 gm in 100 mls @ 100 mls/hr IVPB Q8H [facility] Last Admin: 04/11/17 17:57 Dose: 100 mls/hr Insulin Aspart (Novolog) 0 unit SC ACHS [facility] PRN Reason: Protocol Last Admin: 04/11/17 21:51 Dose: Not Given Insulin Glargine (Lantus) 30 unit SC Q12 [facility] Last Admin: 04/11/17 21:50 Dose: Not Given Lactic Acid (Lac-Hydrin 12% Lotion (225 G)) 4 gm EXT BID [facility] Last Admin: 04/11/17 21:50 Dose: Not Given Lidocaine (Lidoderm) 1 ea TD DAILY [facility] Last Admin: 04/11/17 11:00 Dose: 1 ea Losartan Potassium (Cozaar) 25 mg PO DAILY [facility] Last Admin: 04/11/17 10:31 Dose: 25 mg Multivitamins/Minerals (Therapeutic-M Tab) 1 tab PO DAILY [facility] Last Admin: 04/11/17 11:00 Dose: 1 tab Mupirocin (Bactroban Ointment) 0 gm TOP BID [facility] Last Admin: 04/11/17 21:48 Dose: Not Given Ondansetron HCl (Zofran Tab) 4 mg PO Q8H PRN PRN Reason: Nausea/Vomiting Ondansetron HCl (Zofran Inj) 4 mg IVP Q4 PRN PRN Reason: Nausea/Vomiting Oxycodone/Acetaminophen (Percocet 5/325 Mg Tab) 2 tab PO Q4H PRN PRN Reason: Pain, moderate (4-7) Stop: 04/13/17 08:01 Last Admin: 04/11/17 22:15 Dose: 2 tab Rosuvastatin Calcium (Crestor) 5 mg PO HS [facility] Last Admin: 04/11/17 21:56 Dose: 5 mg Sennosides (Senokot Tab) 8.6 mg PO DAILY [facility] Last Admin: 04/11/17 11:00 Dose: Not Given Sodium Chloride ([place] Baby Saline 30 Ml) 0 ml AQUILES Q2H PRN PRN Reason: Dry nasal passages Thiamine HCl (Vitamin B1 Tab) 100 mg PO DAILY [facility] Last Admin: 04/11/17 10:31 Dose: 100 mg Vitamin A (Vitamin A & D Oint Ud Foilpak) 1 ea TOP BID [facility] Last Admin: 04/11/17 21:53 Dose: 1 ea Zolpidem Tartrate (Ambien) 5 mg PO HS PRN PRN Reason: Insomnia Last Admin: 04/10/17 21:53 Dose: 5 mg - Labs Labs: 04/11/17 13:45 04/11/17 13:47 PT 13.7 SECONDS (9.7-12.2) H 04/11/17 13:45 INR 1.2 04/11/17 13:45 APTT 63 SECONDS (21-34) H D 04/07/17 07:09 - Constitutional Appears: No Acute Distress - Head Exam Head Exam: ATRAUMATIC, NORMAL INSPECTION, NORMOCEPHALIC - Eye Exam Eye Exam: EOMI, Normal appearance, PERRL Pupil Exam: NORMAL ACCOMODATION, PERRL - Respiratory Exam Respiratory Exam: Clear to Ausculation Bilateral, NORMAL BREATHING PATTERN - Cardiovascular Exam Cardiovascular Exam: REGULAR RHYTHM, +S1, +S2. absent: Murmur - GI/Abdominal Exam GI & Abdominal Exam: Soft, Normal Bowel Sounds. absent: Tenderness Assessment and Plan (1) Diabetic foot infection Status: Acute (2) Gangrene of right foot Status: Acute (3) Above knee amputation of left lower extremity Status: Acute (4) HTN (hypertension) Status: Chronic (5) COPD (chronic obstructive pulmonary disease) Status: Chronic (6) Diabetes mellitus Status: Chronic (7) PAD (peripheral artery disease) Status: Chronic (8) Status post below knee amputation of right lower extremity Status: Acute
[2017-04-12] MEDS: HYDROmorphone 0.5 mg/0.5 ml ISec IVP PRN ×2 (02:00→06:52)
[2017-04-12] MEDS: Piperacill/Tazo 4.5gm in Dex 4.5 GM/100 ML BAG IVPB SCH ×2 (02:04→09:39)
[2017-04-12] MEDS: Oxycodone/Acetaminophen 5/325 mg Tab PO PRN ×4 (03:15→16:19)
[2017-04-12 07:31] LABS: BASO # 0.1 K/uL (0.0-0.2); BASO % 1.3 % (0.0-2.0); EOS # 0.5 K/uL (0.0-0.7); EOS % 5.8 % (0.0-4.0); HEMOGLOBIN 9.2 g/dL (12.0-18.0); LYMPH # 1.5 K/uL (1.0-4.3); LYMPH % 17.6 % (20.0-40.0); MEAN CELL VOLUME 96.8 fL (80.0-94.0); MEAN CORPUSCULAR HEMOGLOBIN 33.2 pg (27.0-31.0); MEAN CORPUSCULAR HGB CONC 34.3 g/dL (33.0-37.0); MEAN PLATELET VOLUME 8.3 fL (7.2-11.7); MONO # 0.6 K/uL (0.0-0.8); MONO % 7.1 % (0.0-10.0); NEUT # 5.7 K/uL (1.8-7.0); NEUT % 68.2 % (50.0-75.0); NRBC % 0.1 % (0.0-2.0); RBC 2.76 Mil/uL (4.40-5.90); WHITE BLOOD COUNT 8.4 K/uL (4.8-10.8)
[2017-04-12 07:45] LABS: ALB/GLOB RATIO 0.8 (1.0-2.1); ALT/SGPT 36 U/L (21-72); AST/SGOT 41 U/L (17-59); BLOOD UREA NITROGEN 6 mg/dL (9-20); CALCIUM 8.1 mg/dl (8.6-10.4); GFR AFRICAN-AMERICAN > 60; GFR NON-AFRICAN AMERICAN > 60
[2017-04-12] MEDS: (Novolog) Insulin Aspart, Recombinant 100 u/ml 10 ml vial SC SCH ×3 (07:55→17:11)
[2017-04-12] MEDS: Vitamins A & D Oint UD Foilpak TOP SCH ×2 (07:56→09:30)
--- NOTE | 2017-04-12 09:05 | CP.PCM.PN ---
Subjective - Date & Time of Evaluation Date of Evaluation: 04/12/17 Time of Evaluation: 09:03 - Subjective Subjective: Vascular surgery progress note. Dr. Fernández Pt seen and examined at bedside. No acute events overnight. No F/C. no new complaints. Still reports loose stools. No abdominal pain. States that he is willing to switch to PO pain meds. Right lower extremity dressing intact, no active drainage. Objective - Vital Signs/Intake and Output Vital Signs (last 24 hours): Temp Pulse Resp BP Pulse Ox 98.8 F 93 H 20 130/62 98 04/12/17 07:46 04/12/17 07:46 04/12/17 07:46 04/12/17 07:46 04/12/17 07:46 Intake and Output: 04/12/17 04/12/17 06:59 18:59 Intake Total 350 Output Total 500 Balance -150 - Medications Medications: Current Medications Acetaminophen (Tylenol 325mg Tab) 650 mg PO Q6 PRN PRN Reason: Pain, Mild (1-3) Last Admin: 04/11/17 12:00 Dose: 650 mg Carvedilol (Coreg) 25 mg PO BID [facility] Last Admin: 04/11/17 17:56 Dose: 25 mg Clopidogrel Bisulfate (Plavix) 75 mg PO DAILY [facility] Last Admin: 04/11/17 11:55 Dose: Not Given Gabapentin (Neurontin) 300 mg PO TID [facility] Last Admin: 04/11/17 17:56 Dose: 300 mg Hydromorphone HCl (Dilaudid) 0.5 mg IVP Q3H PRN PRN Reason: Pain, severe (8-10) Last Admin: 04/12/17 06:52 Dose: 0.5 mg Piperacillin Sod/Tazobactam Sod (Zosyn 4.5 Gm Iv Premix) 4.5 gm in 100 mls @ 100 mls/hr IVPB Q8H [facility] Last Admin: 04/12/17 02:04 Dose: 100 mls/hr Insulin Aspart (Novolog) 0 unit SC ACHS [facility] PRN Reason: Protocol Last Admin: 04/12/17 07:55 Dose: Not Given Insulin Glargine (Lantus) 30 unit SC Q12 [facility] Last Admin: 04/11/17 21:50 Dose: Not Given Lactic Acid (Lac-Hydrin 12% Lotion (225 G)) 4 gm EXT BID [facility] Last Admin: 04/11/17 21:50 Dose: Not Given Lidocaine (Lidoderm) 1 ea TD DAILY [facility] Last Admin: 04/11/17 11:00 Dose: 1 ea Losartan Potassium (Cozaar) 25 mg PO DAILY [facility] Last Admin: 04/11/17 10:31 Dose: 25 mg Multivitamins/Minerals (Therapeutic-M Tab) 1 tab PO DAILY [facility] Last Admin: 04/11/17 11:00 Dose: 1 tab Mupirocin (Bactroban Ointment) 0 gm TOP BID [facility] Last Admin: 04/11/17 21:48 Dose: Not Given Ondansetron HCl (Zofran Tab) 4 mg PO Q8H PRN PRN Reason: Nausea/Vomiting Ondansetron HCl (Zofran Inj) 4 mg IVP Q4 PRN PRN Reason: Nausea/Vomiting Oxycodone/Acetaminophen (Percocet 5/325 Mg Tab) 2 tab PO Q4H PRN PRN Reason: Pain, moderate (4-7) Stop: 04/13/17 08:01 Last Admin: 04/12/17 07:56 Dose: 2 tab Rosuvastatin Calcium (Crestor) 5 mg PO HS [facility] Last Admin: 04/11/17 21:56 Dose: 5 mg Sennosides (Senokot Tab) 8.6 mg PO DAILY [facility] Last Admin: 04/11/17 11:00 Dose: Not Given Sodium Chloride ([place] Baby Saline 30 Ml) 0 ml AQUILES Q2H PRN PRN Reason: Dry nasal passages Thiamine HCl (Vitamin B1 Tab) 100 mg PO DAILY [facility] Last Admin: 04/11/17 10:31 Dose: 100 mg Vitamin A (Vitamin A & D Oint Ud Foilpak) 1 ea TOP BID [facility] Last Admin: 04/12/17 07:56 Dose: 1 ea Zolpidem Tartrate (Ambien) 5 mg PO HS PRN PRN Reason: Insomnia Last Admin: 04/11/17 23:55 Dose: 5 mg - Labs Labs: 04/12/17 07:22 04/12/17 07:22 PT 13.7 SECONDS (9.7-12.2) H 04/11/17 13:45 INR 1.2 04/11/17 13:45 APTT 63 SECONDS (21-34) H D 04/07/17 07:09 - Constitutional Appears: Well, Non-toxic - Head Exam Head Exam: ATRAUMATIC, NORMAL INSPECTION, NORMOCEPHALIC - Eye Exam Eye Exam: EOMI - ENT Exam ENT Exam: Mucous Membranes Moist - Respiratory Exam Respiratory Exam: NORMAL BREATHING PATTERN. absent: Accessory Muscle Use, Respiratory Distress - GI/Abdominal Exam GI & Abdominal Exam: Soft. absent: Distended, Guarding, Rigid, Tenderness, Rebound - Extremities Exam Additional comments: Right lower extremity dressing in place. Dry and intact. No active signs of bleeding or drainage. Straight leg brace in place. - Neurological Exam Neurological Exam: Alert, Awake, Oriented x3 - Psychiatric Exam Psychiatric exam: Normal Affect, Normal Mood - Skin Skin Exam: Dry, Intact, Normal Color, Warm Assessment and Plan - Assessment and Plan (Free Text) Assessment: 52yo M s/p R BKA on 04/07. POD 5 Plan: - Transitioned to PO pain management: Oxycodone 10 ER q12, perc for breakthrough. D/C Dilaudid - aggressive physical therapy and occupational therapy - May resume long-term anticoagulation for hx of DVT from surgical standpoint - May be discharged to rehab from surgical standpoint Further recs as per Dr. Pradeep Sevilla PGY1 surgery pager: [phone]
[2017-04-12] MEDS: Multivitamin With Minerals Tab PO SCH (09:28)
[2017-04-12] MEDS: Lidocaine 5% Patch TD SCH (09:28)
[2017-04-12] MEDS: Ammonium Lactate 12% Lotion (225 g) EXT SCH (09:29)
[2017-04-12] MEDS: (Lantus) Insulin Glargine, Recombinant SC SCH (09:29)
[2017-04-12] MEDS ORDERED: oxyCODONE 10 mg ER Tab (oxyCONTIN) PO SCH (10:00)
--- NOTE | 2017-04-12 15:45 | CP.PCM.PN ---
Subjective - Date & Time of Evaluation Date of Evaluation: 04/12/17 Time of Evaluation: 15:45 - Subjective Subjective: PATIENT AAOX3; DENIES ANY CHEST PAIN COMPLAINING OF LEG DISCOMFORT WHICH PAIN MEDS PRESCRIBE NO SIGN OF DISTRESS NOTED Objective - Vital Signs/Intake and Output Vital Signs (last 24 hours): Temp Pulse Resp BP Pulse Ox 98.8 F 93 H 20 130/62 98 04/12/17 07:46 04/12/17 07:46 04/12/17 07:46 04/12/17 09:28 04/12/17 07:46 Intake and Output: 04/12/17 04/12/17 06:59 18:59 Intake Total 350 Output Total 500 Balance -150 - Medications Medications: Current Medications Acetaminophen (Tylenol 325mg Tab) 650 mg PO Q6 PRN PRN Reason: Pain, Mild (1-3) Last Admin: 04/11/17 12:00 Dose: 650 mg Carvedilol (Coreg) 25 mg PO BID [facility] Last Admin: 04/12/17 09:28 Dose: 25 mg Clopidogrel Bisulfate (Plavix) 75 mg PO DAILY [facility] Last Admin: 04/12/17 09:42 Dose: Not Given Gabapentin (Neurontin) 300 mg PO TID [facility] Last Admin: 04/12/17 13:21 Dose: 300 mg Piperacillin Sod/Tazobactam Sod (Zosyn 4.5 Gm Iv Premix) 4.5 gm in 100 mls @ 100 mls/hr IVPB Q8H [facility] Last Admin: 04/12/17 09:39 Dose: 100 mls/hr Insulin Aspart (Novolog) 0 unit SC ACHS [facility] PRN Reason: Protocol Last Admin: 04/12/17 12:39 Dose: Not Given Insulin Glargine (Lantus) 30 unit SC Q12 [facility] Last Admin: 04/12/17 09:29 Dose: Not Given Lactic Acid (Lac-Hydrin 12% Lotion (225 G)) 4 gm EXT BID [facility] Last Admin: 04/12/17 09:29 Dose: Not Given Lidocaine (Lidoderm) 1 ea TD DAILY [facility] Last Admin: 04/12/17 09:28 Dose: 1 ea Losartan Potassium (Cozaar) 25 mg PO DAILY [facility] Last Admin: 04/12/17 09:28 Dose: 25 mg Multivitamins/Minerals (Therapeutic-M Tab) 1 tab PO DAILY [facility] Last Admin: 04/12/17 09:28 Dose: 1 tab Mupirocin (Bactroban Ointment) 0 gm TOP BID [facility] Last Admin: 04/12/17 09:29 Dose: Not Given Ondansetron HCl (Zofran Tab) 4 mg PO Q8H PRN PRN Reason: Nausea/Vomiting Ondansetron HCl (Zofran Inj) 4 mg IVP Q4 PRN PRN Reason: Nausea/Vomiting Oxycodone HCl (Oxycontin Extended Release Tab) 10 mg PO Q12 [facility] Stop: 04/15/17 10:01 Last Admin: 04/12/17 09:39 Dose: 10 mg Oxycodone/Acetaminophen (Percocet 5/325 Mg Tab) 2 tab PO Q4H PRN PRN Reason: Pain, moderate (4-7) Stop: 04/13/17 08:01 Last Admin: 04/12/17 12:40 Dose: 2 tab Rosuvastatin Calcium (Crestor) 5 mg PO HS [facility] Last Admin: 04/11/17 21:56 Dose: 5 mg Sennosides (Senokot Tab) 8.6 mg PO DAILY [facility] Last Admin: 04/11/17 11:00 Dose: Not Given Sodium Chloride ([place] Baby Saline 30 Ml) 0 ml AQUILES Q2H PRN PRN Reason: Dry nasal passages Thiamine HCl (Vitamin B1 Tab) 100 mg PO DAILY [facility] Last Admin: 04/12/17 09:28 Dose: 100 mg Vitamin A (Vitamin A & D Oint Ud Foilpak) 1 ea TOP BID [facility] Last Admin: 04/12/17 09:30 Dose: Not Given Zolpidem Tartrate (Ambien) 5 mg PO HS PRN PRN Reason: Insomnia Last Admin: 04/11/17 23:55 Dose: 5 mg - Labs Labs: 04/12/17 07:22 04/12/17 07:22 PT 13.7 SECONDS (9.7-12.2) H 04/11/17 13:45 INR 1.2 04/11/17 13:45 APTT 63 SECONDS (21-34) H D 04/07/17 07:09 Assessment and Plan - Assessment and Plan (Free Text) Assessment: PATIENT SEEN AND EXAMINED AT THE BEDSIDE LUNG SOUND CLEAR SURGERY CHANGE DRESSING DRY AND INTACT AND CLEAR PATIENT TO DC DISCUSS WITH PMD WHO CLEAR PATIENT FOR DC PLACE UNDER THE SERVICE OF DR SINGH AT [facility] ---CALL DR SINGH FOR ADMITTING ORDER CONTINUE ALL YOUR HOME MEDICATION ORDER NEW PRESCRIPTION GIVEN OXYCOTIN 10 MG Q12H BY MOUTH FOR 3 DAYS ZOSYN4.5 MG Q8H IV FOR 3 DAYS LOSARTAN 25 MG BY MOUTH DAILY [facility]IV[facility] TOLERATED CALL DR SINGH FOR FURTHER ORDERS DISCUSS WITH PATIENT WHO AGREE AND VERBALIZED UNDERSTANDING
[2017-04-12 16:53] VITALS: BP 145/74; PULSE 90; TEMP 98.6; O2SAT 100
--- NOTE | 2017-04-12 17:21 | CP.PCM.PN ---
Subjective - Date & Time of Evaluation Date of Evaluation: 04/12/17 Time of Evaluation: 17:00 - Subjective Subjective: PATIENT AAOX3;PT IS FOR DISCHARGE S/P RIGHT BKA, DENIES ANY CHEST PAIN , SOB COMPLAINING OF LEG DISCOMFORT WHICH PAIN MEDS PRESCRIBE NO SIGN OF DISTRESS NOTED\ DISCHARGE TO [facility] REHAB Objective - Vital Signs/Intake and Output Vital Signs (last 24 hours): Temp Pulse Resp BP Pulse Ox 98.6 F 90 20 145/74 100 04/12/17 15:15 04/12/17 15:15 04/12/17 15:15 04/12/17 15:15 04/12/17 15:15 Intake and Output: 04/12/17 04/12/17 06:59 18:59 Intake Total 350 Output Total 500 Balance -150 - Medications Medications: Current Medications Acetaminophen (Tylenol 325mg Tab) 650 mg PO Q6 PRN PRN Reason: Pain, Mild (1-3) Last Admin: 04/11/17 12:00 Dose: 650 mg Carvedilol (Coreg) 25 mg PO BID [facility] Last Admin: 04/12/17 09:28 Dose: 25 mg Clopidogrel Bisulfate (Plavix) 75 mg PO DAILY [facility] Last Admin: 04/12/17 09:42 Dose: Not Given Gabapentin (Neurontin) 300 mg PO TID [facility] Last Admin: 04/12/17 13:21 Dose: 300 mg Piperacillin Sod/Tazobactam Sod (Zosyn 4.5 Gm Iv Premix) 4.5 gm in 100 mls @ 100 mls/hr IVPB Q8H [facility] Last Admin: 04/12/17 09:39 Dose: 100 mls/hr Insulin Aspart (Novolog) 0 unit SC ACHS [facility] PRN Reason: Protocol Last Admin: 04/12/17 17:11 Dose: Not Given Insulin Glargine (Lantus) 30 unit SC Q12 [facility] Last Admin: 04/12/17 09:29 Dose: Not Given Lactic Acid (Lac-Hydrin 12% Lotion (225 G)) 4 gm EXT BID [facility] Last Admin: 04/12/17 09:29 Dose: Not Given Lidocaine (Lidoderm) 1 ea TD DAILY [facility] Last Admin: 04/12/17 09:28 Dose: 1 ea Losartan Potassium (Cozaar) 25 mg PO DAILY [facility] Last Admin: 04/12/17 09:28 Dose: 25 mg Multivitamins/Minerals (Therapeutic-M Tab) 1 tab PO DAILY [facility] Last Admin: 04/12/17 09:28 Dose: 1 tab Mupirocin (Bactroban Ointment) 0 gm TOP BID [facility] Last Admin: 04/12/17 09:29 Dose: Not Given Ondansetron HCl (Zofran Tab) 4 mg PO Q8H PRN PRN Reason: Nausea/Vomiting Ondansetron HCl (Zofran Inj) 4 mg IVP Q4 PRN PRN Reason: Nausea/Vomiting Oxycodone HCl (Oxycontin Extended Release Tab) 10 mg PO Q12 [facility] Stop: 04/15/17 10:01 Last Admin: 04/12/17 09:39 Dose: 10 mg Oxycodone/Acetaminophen (Percocet 5/325 Mg Tab) 2 tab PO Q4H PRN PRN Reason: Pain, moderate (4-7) Stop: 04/13/17 08:01 Last Admin: 04/12/17 16:19 Dose: 2 tab Rosuvastatin Calcium (Crestor) 5 mg PO HS [facility] Last Admin: 04/11/17 21:56 Dose: 5 mg Sennosides (Senokot Tab) 8.6 mg PO DAILY [facility] Last Admin: 04/11/17 11:00 Dose: Not Given Sodium Chloride ([place] Baby Saline 30 Ml) 0 ml AQUILES Q2H PRN PRN Reason: Dry nasal passages Thiamine HCl (Vitamin B1 Tab) 100 mg PO DAILY [facility] Last Admin: 04/12/17 09:28 Dose: 100 mg Vitamin A (Vitamin A & D Oint Ud Foilpak) 1 ea TOP BID [facility] Last Admin: 04/12/17 09:30 Dose: Not Given Zolpidem Tartrate (Ambien) 5 mg PO HS PRN PRN Reason: Insomnia Last Admin: 04/11/17 23:55 Dose: 5 mg - Labs Labs: 04/12/17 07:22 04/12/17 07:22 PT 13.7 SECONDS (9.7-12.2) H 04/11/17 13:45 INR 1.2 04/11/17 13:45 APTT 63 SECONDS (21-34) H D 04/07/17 07:09 - Constitutional Appears: No Acute Distress - Head Exam Head Exam: ATRAUMATIC, NORMAL INSPECTION, NORMOCEPHALIC - Eye Exam Eye Exam: EOMI, Normal appearance, PERRL Pupil Exam: NORMAL ACCOMODATION, PERRL - Respiratory Exam Respiratory Exam: Clear to Ausculation Bilateral, NORMAL BREATHING PATTERN Assessment and Plan (1) Diabetic foot infection Status: Acute (2) Gangrene of right foot Status: Acute (3) Above knee amputation of left lower extremity Status: Acute (4) HTN (hypertension) Status: Chronic (5) COPD (chronic obstructive pulmonary disease) Status: Chronic (6) Diabetes mellitus Status: Chronic (7) PAD (peripheral artery disease) Status: Chronic (8) Status post below knee amputation of right lower extremity Status: Acute
--- NOTE | 2017-04-13 22:39 | CP.PCM.DIS ---
Provider - Provider Date of Admission: 03/27/17 16:04 Attending physician: Jagdeep Lee MD Time Spent in preparation of Discharge (in minutes): 45 Diagnosis - Discharge Diagnosis (1) Diabetic foot infection Status: Acute (2) Gangrene of right foot Status: Acute (3) Above knee amputation of left lower extremity Status: Acute (4) HTN (hypertension) Status: Chronic (5) COPD (chronic obstructive pulmonary disease) Status: Chronic (6) Diabetes mellitus Status: Chronic (7) PAD (peripheral artery disease) Status: Chronic (8) Status post below knee amputation of right lower extremity Status: Acute Hospital Course - Lab Results Lab Results: Micro Results 03/27/17 15:00 Blood Blood Culture - Final NO GROWTH AFTER 5 DAYS 03/27/17 15:00 Blood Gram Stain - Final TEST NOT PERFORMED 03/27/17 15:30 Blood Blood Culture - Final NO GROWTH AFTER 5 DAYS 03/27/17 15:30 Blood Gram Stain - Final TEST NOT PERFORMED Most Recent Lab Values WBC 8.4 K/uL (4.8-10.8) 04/12/17 07:22 RBC 2.76 Mil/uL (4.40-5.90) L 04/12/17 07:22 Hgb 9.2 g/dL (12.0-18.0) L 04/12/17 07:22 Hct 26.7 % (35.0-51.0) L 04/12/17 07:22 MCV 96.8 fL (80.0-94.0) H 04/12/17 07:22 MCH 33.2 pg (27.0-31.0) H 04/12/17 07:22 MCHC 34.3 g/dL (33.0-37.0) 04/12/17 07:22 RDW 14.0 % (11.5-14.5) 04/12/17 07:22 Plt Count 256 K/uL (130-400) 04/12/17 07:22 MPV 8.3 fL (7.2-11.7) 04/12/17 07:22 Neut % (Auto) 68.2 % (50.0-75.0) 04/12/17 07:22 Lymph % (Auto) 17.6 % (20.0-40.0) L 04/12/17 07:22 [place] % (Auto) 7.1 % (0.0-10.0) 04/12/17 07:22 Eos % (Auto) 5.8 % (0.0-4.0) H 04/12/17 07:22 Baso % (Auto) 1.3 % (0.0-2.0) 04/12/17 07:22 Neut # (Auto) 5.7 K/uL (1.8-7.0) 04/12/17 07:22 Lymph # (Auto) 1.5 K/uL (1.0-4.3) 04/12/17 07:22 [place] # (Auto) 0.6 K/uL (0.0-0.8) 04/12/17 07:22 Eos # (Auto) 0.5 K/uL (0.0-0.7) 04/12/17 07:22 Baso # (Auto) 0.1 K/uL (0.0-0.2) 04/12/17 07:22 Differential Comment 03/27/17 15:28 PT 13.7 SECONDS (9.7-12.2) H 04/11/17 13:45 INR 1.2 04/11/17 13:45 APTT 63 SECONDS (21-34) H D 04/07/17 07:09 Sodium 142 mmol/L (132-148) 04/12/17 07:22 Potassium 3.7 mmol/L (3.6-5.2) 04/12/17 07:22 Chloride 106 mmol/L (98-107) 04/12/17 07:22 Carbon Dioxide 23 mmol/L (22-30) 04/12/17 07:22 Anion Gap 17 (10-20) 04/12/17 07:22 BUN 6 mg/dL (9-20) L 04/12/17 07:22 Creatinine 0.7 mg/dL (0.8-1.5) L 04/12/17 07:22 Est GFR ( Amer) > 60 04/12/17 07:22 Est GFR (Non-Af Amer) > 60 04/12/17 07:22 POC Glucose (mg/dL) 112 mg/dL (65-110) H 04/12/17 16:29 Random Glucose 144 mg/dL (75-110) H 04/12/17 07:22 Calcium 8.1 mg/dl (8.6-10.4) L 04/12/17 07:22 Total Bilirubin 0.2 mg/dL (0.2-1.3) 04/12/17 07:22 AST 41 U/L (17-59) 04/12/17 07:22 ALT 36 U/L (21-72) 04/12/17 07:22 Alkaline Phosphatase 75 U/L (38-126) 04/12/17 07:22 Total Protein 7.0 g/dL (6.3-8.3) 04/12/17 07:22 Albumin 3.0 g/dL (3.5-5.0) L 04/12/17 07:22 Globulin 4.0 gm/dL (2.2-3.9) H 04/12/17 07:22 Albumin/Globulin Ratio 0.8 (1.0-2.1) L 04/12/17 07:22 Random Vancomycin 11.08 ug/mL 03/30/17 07:05 Blood Type A POSITIVE 04/07/17 07:09 Antibody Screen Negative 04/07/17 07:09 - Hospital Course Hospital Course: PATIENT AAOX3;PT IS FOR DISCHARGE S/P RIGHT BKA, DENIES ANY CHEST PAIN , SOB COMPLAINING OF LEG DISCOMFORT WHICH PAIN MEDS PRESCRIBE NO SIGN OF DISTRESS NOTED\ DISCHARGE TO [facility] REHAB Discharge Exam - Head Exam Head Exam: ATRAUMATIC, NORMAL INSPECTION, NORMOCEPHALIC Discharge Plan - Discharge Medications Prescriptions: Losartan [Cozaar] 25 mg PO DAILY 30 Days tab oxyCODONE [oxyCONTIN Extended Release Tab] 10 mg PO Q12 #6 tab Piperacill/Tazo 4.5gm in NS [Zosyn 4.5 gm in NS 100ml] 4.5 gm IVPB Q8H 3 Days bag - Follow Up Plan Condition: FAIR Disposition: REHAB FACILITY/REHAB UNIT Instructions: Losartan, Oxycodone, Piperacillin and Tazobactam, Amputation, [id number] (DC), Amputation Exercises, [id number] Additional Instructions: PLACE UNDER THE SERVICE OF DR LEE AT [facility] ---CALL DR LEE FOR ADMITTING ORDER CONTINUE ALL YOUR HOME MEDICATION ORDER NEW PRESCRIPTION GIVEN OXYCOTIN 10 MG Q12H BY MOUTH FOR 3 DAYS ZOSYN4.5 MG Q8H IV FOR 3 DAYS LOSARTAN 25 MG BY MOUTH DAILY ACTIVITY TOLERATED CALL DR LEE FOR FURTHER ORDERS Referrals: Jagdeep Lee MD [Staff Provider] - Nash Andrade MD [Staff Provider] - Ridge Fernández Jr., MD [Staff Provider] - Bandar Malik DPM [Staff Provider] -
== END 2017-04-12 17:30 | DRG 240 ==
LOC: C.ER 12:48 → C.9E 16:04 → C.3T 18:26
PROVIDERS: ADMIT Internal Medicine; ATTEND Internal Medicine
PROC: 02HV33Z Insertion of Infusion Device into Superior Vena Cava, Percutaneous Approach (ICD-10-PCS; 2017-04-01)
PROC: B548ZZA Ultrasonography of Superior Vena Cava, Guidance (ICD-10-PCS; 2017-04-01)
PROC: 3E04329 Introduction of Other Anti-infective into Central Vein, Percutaneous Approach (ICD-10-PCS; 2017-04-01)
PROC: B41F1ZZ Fluoroscopy of Right Lower Extremity Arteries using Low Osmolar Contrast (ICD-10-PCS; 2017-04-02)
PROC: 0Y6H0Z1 Detachment at Right Lower Leg, High, Open Approach (ICD-10-PCS; principal; 2017-04-07 12:00)
DX: E11.52 Type 2 diabetes mellitus with diabetic peripheral angiopathy with gangrene (principal); E11.621 Type 2 diabetes mellitus with foot ulcer; T82.858A Stenosis of other vascular prosthetic devices, implants and grafts, initial encounter; I82.411 Acute embolism and thrombosis of right femoral vein; M86.9 Osteomyelitis, unspecified; I70.261 Atherosclerosis of native arteries of extremities with gangrene, right leg; L97.519 Non-pressure chronic ulcer of other part of right foot with unspecified severity; E78.00 Pure hypercholesterolemia, unspecified; E78.5 Hyperlipidemia, unspecified; I10 Essential (primary) hypertension; I25.2 Old myocardial infarction; Y83.9 Surgical procedure, unspecified as the cause of abnormal reaction of the patient, or of later complication, without mention of misadventure at the time of the procedure; J44.9 Chronic obstructive pulmonary disease, unspecified; R50.82 Postprocedural fever; Z79.4 Long term (current) use of insulin; Z89.421 Acquired absence of other right toe(s); Z89.512 Acquired absence of left leg below knee; F17.210 Nicotine dependence, cigarettes, uncomplicated; F12.90 Cannabis use, unspecified, uncomplicated; F32.9 Major depressive disorder, single episode, unspecified; F41.9 Anxiety disorder, unspecified; I82.431 Acute embolism and thrombosis of right popliteal vein

== ENCOUNTER 2018-01-20 12:05 | Inpatient (IN) | payer MEDICARE, MEDICAID ==
[2018-01-20 12:05] VITALS: BMI 26.7
[2018-01-20 15:41] LABS: BASO # 0.1 K/uL (0.0-0.2); BASO % 0.7 % (0.0-2.0); EOS # 0.2 K/uL (0.0-0.7); LYMPH # 1.7 K/uL (1.0-4.3); LYMPH % 17.5 % (20.0-40.0); MEAN CORPUSCULAR HEMOGLOBIN 34.3 pg (27.0-31.0); MEAN CORPUSCULAR HGB CONC 34.5 g/dL (33.0-37.0); MEAN PLATELET VOLUME 8.8 fL (7.2-11.7); MONO # 0.6 K/uL (0.0-0.8); MONO % 5.8 % (0.0-10.0); NEUT # 7.1 K/uL (1.8-7.0); RBC 4.71 Mil/uL (4.40-5.90); RED CELL DISTRIBUTION WIDTH 14.5 % (11.5-14.5); WHITE BLOOD COUNT 9.6 K/uL (4.8-10.8)
[2018-01-20 15:43] LABS: HEMOGLOBIN 16.1 g/dL (12.0-18.0); MEAN CELL VOLUME 99.4 fL (80.0-94.0)
--- NOTE | 2018-01-20 15:45 | C.PDOC ---
History Of Present Illness 52 year old male with PMH of DM, HTN, PVD and presents to ED with complaints of right mouth and neck pain for 2 months. He states he has been seen seen by PMD DR Lee and given antibiotics. He reports pain remains the same despite taking Tramadol. He states when he swallows feels there may be a lump. Denies any fever, bleeding, drainage, neck stiffness, headache, dizziness, vision changes, chest pain or SOB. <Madelyn Huber - Last Filed: 01/20/18 19:05> History Per: Patient History/Exam Limitations: no limitations Onset/Duration Of Symptoms: Other (two months ) Current Symptoms Are (Timing): Still Present Quality: Positive for: "Pain" Additional History Per: Patient <Madelyn Huber - Last Filed: 01/20/18 19:05> <Marco Antonio Black - Last Filed: 01/20/18 19:53> Time Seen by Provider: 01/20/18 14:11 Chief Complaint (Nursing): Dental Pain Past Medical History Reviewed: Historical Data, Nursing Documentation, Vital Signs Vital Signs: Last Vital Signs Temp 98.5 F 01/20/18 13:08 Pulse 104 H 01/20/18 13:08 Resp 18 01/20/18 13:08 BP 158/83 H 01/20/18 13:08 Pulse Ox 97 01/20/18 13:08 - Medical History PMH: Anxiety, Asthma, COPD, Depression, Diverticulitis, Gastritis, HTN, Hypercholesterolemia Surgical History: No Surg Hx - [facility] Procedures DETACHMENT AT LEFT 2ND TOE, COMPLETE, OPEN APPROACH (05/08/15) DETACHMENT AT LEFT FEMORAL REGION, OPEN APPROACH (07/06/15) DETACHMENT AT LEFT FOOT, PARTIAL 1ST RAY, OPEN APPROACH (06/01/15) DETACHMENT AT LEFT FOOT, PARTIAL 2ND RAY, OPEN APPROACH (06/01/15) DETACHMENT AT LEFT FOOT, PARTIAL 3RD RAY, OPEN APPROACH (06/01/15) DETACHMENT AT LEFT FOOT, PARTIAL 4TH RAY, OPEN APPROACH (06/01/15) DETACHMENT AT LEFT FOOT, PARTIAL 5TH RAY, OPEN APPROACH (06/01/15) DETACHMENT AT RIGHT 5TH TOE, HIGH, OPEN APPROACH (01/15/17) DETACHMENT AT RIGHT LOWER LEG, HIGH, OPEN APPROACH (03/27/17) DILATE R FEM ART W INTRALUM DEV, DRUG BLLN, PERC (01/15/17) DILATION OF L EXT ILIAC ART WITH INTRALUM DEV, PERC APPROACH (06/01/15) DILATION OF L FEM ART WITH INTRALUM DEV, PERC APPROACH (05/08/15) DILATION OF L FOOT ART WITH INTRALUM DEV, PERC APPROACH (05/08/15) EXCISION OF L FOOT SUBCU/FASCIA, OPEN APPROACH (07/06/15) EXCISION OF SIGMOID COLON, OPEN APPROACH (11/16/15) EXTIRPATION OF MATTER FROM L EXT ILIAC ART, PERC APPROACH (06/01/15) EXTIRPATION OF MATTER FROM R FEM ART, PERC APPROACH (01/15/17) FLUOROSCOPY OF R LOW EXTREM ART USING L OSM CONTRAST (03/27/17) FLUOROSCOPY OF SUPERIOR VENA CAVA, GUIDANCE (07/06/15) INSERTION OF INFUSION DEV INTO SUP VENA CAVA, PERC APPROACH (03/27/17) INTRODUCE LOCAL ANESTH IN PERIPH NRV, PLEXI, PERC (11/16/15) INTRODUCE OTH ANTI-INFECT IN CENTRAL VEIN, PERC (03/27/17) INTRODUCE OTH THROMBOLYTIC IN PERIPH VEIN, PERC (06/01/15) REPAIR BLADDER, OPEN APPROACH (11/16/15) ULTRASONOGRAPHY OF SUPERIOR VENA CAVA, GUIDANCE (03/27/17) Family History: States: Unknown Family Hx - Social History Hx Tobacco Use: Yes Hx Alcohol Use: Yes Hx Substance Use: Yes (weed) - Immunization History Hx Tetanus Toxoid Vaccination: No Hx Influenza Vaccination: No Hx Pneumococcal Vaccination: No <Madelyn Huber - Last Filed: 01/20/18 19:05> Vital Signs: Last Vital Signs Temp 98.5 F 01/20/18 13:08 Pulse 104 H 01/20/18 13:08 Resp 18 01/20/18 13:08 BP 158/83 H 01/20/18 13:08 Pulse Ox 97 01/20/18 19:05 - [facility] Procedures DETACHMENT AT LEFT 2ND TOE, COMPLETE, OPEN APPROACH (05/08/15) DETACHMENT AT LEFT FEMORAL REGION, OPEN APPROACH (07/06/15) DETACHMENT AT LEFT FOOT, PARTIAL 1ST RAY, OPEN APPROACH (06/01/15) DETACHMENT AT LEFT FOOT, PARTIAL 2ND RAY, OPEN APPROACH (06/01/15) DETACHMENT AT LEFT FOOT, PARTIAL 3RD RAY, OPEN APPROACH (06/01/15) DETACHMENT AT LEFT FOOT, PARTIAL 4TH RAY, OPEN APPROACH (06/01/15) DETACHMENT AT LEFT FOOT, PARTIAL 5TH RAY, OPEN APPROACH (06/01/15) DETACHMENT AT RIGHT 5TH TOE, HIGH, OPEN APPROACH (01/15/17) DETACHMENT AT RIGHT LOWER LEG, HIGH, OPEN APPROACH (03/27/17) DILATE R FEM ART W INTRALUM DEV, DRUG BLLN, PERC (01/15/17) DILATION OF L EXT ILIAC ART WITH INTRALUM DEV, PERC APPROACH (06/01/15) DILATION OF L FEM ART WITH INTRALUM DEV, PERC APPROACH (05/08/15) DILATION OF L FOOT ART WITH INTRALUM DEV, PERC APPROACH (05/08/15) EXCISION OF L FOOT SUBCU/FASCIA, OPEN APPROACH (07/06/15) EXCISION OF SIGMOID COLON, OPEN APPROACH (11/16/15) EXTIRPATION OF MATTER FROM L EXT ILIAC ART, PERC APPROACH (06/01/15) EXTIRPATION OF MATTER FROM R FEM ART, PERC APPROACH (01/15/17) FLUOROSCOPY OF R LOW EXTREM ART USING L OSM CONTRAST (03/27/17) FLUOROSCOPY OF SUPERIOR VENA CAVA, GUIDANCE (07/06/15) INSERTION OF INFUSION DEV INTO SUP VENA CAVA, PERC APPROACH (03/27/17) INTRODUCE LOCAL ANESTH IN PERIPH NRV, PLEXI, PERC (11/16/15) INTRODUCE OTH ANTI-INFECT IN CENTRAL VEIN, PERC (03/27/17) INTRODUCE OTH THROMBOLYTIC IN PERIPH VEIN, PERC (06/01/15) REPAIR BLADDER, OPEN APPROACH (11/16/15) ULTRASONOGRAPHY OF SUPERIOR VENA CAVA, GUIDANCE (03/27/17) <Marco Antonio Black - Last Filed: 01/20/18 19:53> Review Of Systems Constitutional: Negative for: Fever ENT: Positive for: Mouth Pain (right ). Negative for: Other (neck stiffness ) Cardiovascular: Negative for: Chest Pain Respiratory: Negative for: Shortness of Breath Musculoskeletal: Positive for: Neck Pain Neurological: Negative for: Headache, Dizziness <Madelyn Huber - Last Filed: 01/20/18 19:05> Physical Exam - Physical Exam Appears: Non-toxic, No Acute Distress, Chronically Ill, Other (elderly ) Skin: Normal Color, Warm, Dry Head: Atraumatic, Normacephalic, No Tenderness, No Swelling Eye(s): bilateral: Normal Inspection, EOMI Ear(s): Bilateral: Normal Nose: Normal, No Discharge Oral Mucosa: Moist, Other (halitosis ) Tongue: Normal Appearing, No Swelling Lips: Normal Appearing, No Swelling Teeth: Caries Throat: Normal, No Erythema, No Exudate Neck: Supple, Other (Right submandibular tender mass) Chest: Symmetrical, No Deformity, No Tenderness Cardiovascular: Rhythm Regular, No Murmur Extremity: Other (bilateral below-knee amputations) Neurological/Psych: Oriented x3, Normal Speech, Normal Cognition <Madelyn Huber Filed: 01/20/18 19:05> ED Course And Treatment - Laboratory Results Result Diagrams: 01/20/18 15:36 01/20/18 15:36 Lab Interpretation: No Acute Changes O2 Sat by Pulse Oximetry: 97 (on RA) Pulse Ox Interpretation: Normal <Madelyn Huber Filed: 01/20/18 19:05> - Laboratory Results Result Diagrams: 01/20/18 15:36 01/20/18 15:36 <Marco Antonio Black - Last Filed: 01/20/18 19:53> Medical Decision Making Medical Decision Making: Impression: neck pain Plan: * CBC * CMP * CT Neck with IV contrast Progress: [address] Lee to discuss case and he recommended labs and workup, call back with results. 1700 Labs reviewed and unremarkable, still pending urine and CT. 1800 CT completed, pending official radiology reading 1900 Patient case signed out to shift mechanic attending DR Black. Pending CT, re-eval and dispo <Madelyn Huber Filed: 01/20/18 19:05> Disposition - Disposition Disposition Time: 19:00 - POA Present On Arrival: None <Maedlyn Huber Filed: 01/20/18 19:05> Discussed With : Jagdeep Lee Comment: accepted the pt on his service and took over the care at 7:52 PM Doctor Will See Patient In The: Hospital Counseled Patient/Family Regarding: Studies Performed, Diagnosis - POA Present On Arrival: None <Marco Antonio Black - Last Filed: 01/20/18 19:53> - Disposition Disposition: HOSPITALIZED Condition: FAIR - Clinical Impression Clinical Impression: Neck pain on right side, Neck mass - PA / REGIONAL DIRECTOR / Resident Statement MD/DO has reviewed & agrees with the documentation as recorded. - Scribe Statement The provider has reviewed the documentation as recorded by the Scribe (Mary Ellen Castano) All medical record entries made by the Scribe were at my direction and personally dictated by me. I have reviewed the chart and agree that the record accurately reflects my personal performance of the history, physical exam, medical decision making, and the department course for this patient. I have also personally directed, reviewed, and agree with the discharge instructions and disposition. <Madelyn Huber - Last Filed: 01/20/18 19:05> Decision To Admit <Madelyn Huber - Last Filed: 01/20/18 19:05> - Pt Status Changed To: Hospital Disposition Of: Inpatient - Admit Certification Admit to Inpatient:: After my assessment, the patient will require hospitaliz ation for at least two midnights. This is because of the severity of symptoms shown, intensity of services needed, and/or the medical risk in this patient being treated as an outpatient. - InPatient: Physician Admission Certification: I certify that this patient requires 2 or more midnights of care for the following reason:: After my assessment, the patient will require hospitalization for at least two midnights. This is because of the severity of symptoms shown, intensity of services needed, and/or the medical risk in this patient being treated as an outpatient. - . Bed Request Type: Regular Admitting Physician: Jagdeep Lee <Marco Antonio Black - Last Filed: 01/20/18 19:53> - . Patient Diagnosis: Neck pain on right side, Neck mass
[2018-01-20 15:54] LABS: ALBUMIN 3.8 g/dL (3.5-5.0); ALT/SGPT 23 U/L (21-72); AST/SGOT 31 U/L (17-59); BLOOD UREA NITROGEN 10 mg/dL (9-20); CALCIUM 8.6 mg/dl (8.6-10.4); GFR NON-AFRICAN AMERICAN > 60
[2018-01-20] MEDS ORDERED: Iohexol 300 100 ML IJ ONE (17:50)
[2018-01-20] MEDS ORDERED: Piperacillin/Tazobact 3.375 gm 100 ML IVPB STA (19:48)
[2018-01-20] MEDS ORDERED: Vancomycin 1 GM 1 GM/250 ML BAG IVPB SCH (20:00)
[2018-01-20] MEDS ORDERED: Vancomycin 1 GM 1 GM/250 ML BAG IVPB ONE ×2 (20:09→20:30)
[2018-01-20] MEDS ORDERED: Piperacillin/Tazobact 3.375 gm 100 ML IVPB ONE (20:09)
[2018-01-20 22:49] VITALS: RESP 20
[2018-01-20] MEDS: Lidocaine 5% Patch TD SCH (23:48)
[2018-01-21] MEDS: (Novolog) Insulin Aspart, Recombinant 100 u/ml 10 ml vial SC SCH ×3 (07:54→18:06)
--- NOTE | 2018-01-21 08:42 | CP.PCM.CON ---
History of Present Illness - History of Present Illness History of Present Illness: Cardiology Consult Note This is a 52 year old male with PMHx of Hypertension, Diabetes, HLD, PVD, asthma/ COPD, and anxiety who was referred to our service by Dr. Lee. Patient presented with mouth and neck pain x 2 months which has been getting worse over time. Patient denied any difficulty breathing or swallowing but he can feel a "lump" and discomfort when he swallows. Denied fever, chills, chest pain, shortness of breath, abdominal pain, n/v/d/c, or urinary complaints. PMHx: as noted above PSHx: Bilateral BKA, R SFA stenting (01/2017)Left AKA (07/2015), Ex Lap LAR, bowel resection, repair of colovesicular fistula (11/2015), Fem-Fem bypass 2011 at [facility] [place] All: NKDA SHx: smokes 1-1.5ppd x40yrs, 1 pint of vodka per day, occasional marijuana use FHx: Unremarkable Review of Systems - Review of Systems All systems: reviewed and no additional remarkable complaints except - Constitutional Constitutional: absent: Chills, Fever, Lethargy, Weakness - EENT Eyes: absent: Change in Vision, Diplopia Ears: absent: Ear Pain, Tinnitus Nose/Mouth/Throat: Neck Pain, Neck Mass. absent: Epistaxis, Hoarsness, Throat Swelling, Tongue Swelling - Cardiovascular Cardiovascular: absent: Chest Pain, Chest Pain at Rest, Chest Pain with Activity, Dyspnea, Orthopnea, Slow Heart Rate, Syncope - Respiratory Respiratory: absent: Cough, Wheezing, Chest Congestion - Gastrointestinal Gastrointestinal: absent: Abdominal Pain, Nausea, Vomiting - Genitourinary Genitourinary: absent: Dysuria, Hematuria - Musculoskeletal Musculoskeletal: absent: Muscle Weakness, Stiffness, Tingling - Neurological Neurological: absent: Dizziness, Headaches, Syncope, Weakness - Psychiatric Psychiatric: absent: Anxiety, Depression - Endocrine Endocrine: absent: Polydipsia, Polyphagia, Polyuria - Hematologic/Lymphatic Hematologic: absent: Easy Bleeding, Easy Bruising, Lymphadenopathy Past Patient History - Infectious Disease Hx of Infectious Diseases: None - Past Medical History & Family History Past Medical History?: Yes - Past Social History Smoking Status: Current Some Days Smoker - CARDIAC Hx Hypercholesterolemia: Yes Hx Hypertension: Yes - PULMONARY Hx Asthma: Yes Hx Chronic Obstructive Pulmonary Disease (COPD): Yes - NEUROLOGICAL Hx Neurological Disorder: No - HEENT Hx HEENT Problems: No - RENAL Hx Chronic Kidney Disease: No - ENDOCRINE/METABOLIC Hx Endocrine Disorders: Yes Hx Diabetes Mellitus Type 1: Yes - HEMATOLOGICAL/ONCOLOGICAL Hx Blood Disorders: No - INTEGUMENTARY Hx Dermatological Problems: Yes Other/Comment: PT HAS BROWN SPOTS ON ARMS AND BACK 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 - MUSCULOSKELETAL/RHEUMATOLOGICAL Hx Falls: No - GASTROINTESTINAL Hx Diverticulitis: Yes Hx Gastritis: Yes - GENITOURINARY/GYNECOLOGICAL Hx Genitourinary Disorders: Yes Hx Urinary Tract Infection: Yes Other/Comment: PT STATES HE HAS BROWN URINE AND SOME FECAL MATERIAL IN HIS URINE. - PSYCHIATRIC Hx Substance Use: Yes (WEEDS) - SURGICAL HISTORY Hx Surgeries: Yes Hx Amputation: Yes (LEFT aKA R BKA) Hx Angiogram: Yes Hx Cardiac Catheterization: Yes Hx Femoral-Popliteal Bypass Graft: Yes (X 3) Hx Vascular Surgery: Yes Other/Comment: Vascular bypass surgery femoral bilateral 2011,LT. BELOW KNEE AMPUTATION, right 5th toe amputation - ANESTHESIA Hx Anesthesia: Yes Hx Anesthesia Reactions: No Hx Malignant Hyperthermia: No Meds Allergies/Adverse Reactions: Allergies Allergy/AdvReac Type Severity Reaction Status Date / Time No Known Allergies Allergy Verified 03/27/17 14:16 - Medications Medications: Current Medications Acetaminophen (Tylenol 325mg Tab) 650 mg PO Q6 PRN PRN Reason: Pain, Mild (1-3) Last Admin: 01/21/18 06:08 Dose: 650 mg Carvedilol (Coreg) 25 mg PO BID [facility] Clopidogrel Bisulfate (Plavix) 75 mg PO DAILY [facility] Enoxaparin Sodium (Lovenox) 40 mg SC DAILY [facility] Gabapentin (Neurontin) 300 mg PO TID [facility] Ceftriaxone Sodium (Rocephin Iv 1 Gm Duplex) 50 mls @ 100 mls/hr IVPB DAILY [facility]; Protocol Insulin Aspart (Novolog) 0 unit SC ACHS [facility]; Protocol Last Admin: 01/21/18 07:54 Dose: Not Given Insulin Glargine (Lantus) 35 unit SC Q12 [facility] Lidocaine (Lidoderm) 1 ea TD Q24H [facility] Last Admin: 01/20/18 23:48 Dose: 1 ea Losartan Potassium (Cozaar) 25 mg PO DAILY [facility] Rosuvastatin Calcium (Crestor) 5 mg PO HS [facility] Sennosides (Senokot Tab) 8.6 mg PO DAILY [facility] Zolpidem Tartrate (Ambien) 5 mg PO HS PRN PRN Reason: Insomnia Last Admin: 01/20/18 23:43 Dose: 5 mg Physical Exam - Constitutional Appears: No Acute Distress - Head Exam Head Exam: NORMAL INSPECTION, NORMOCEPHALIC - Eye Exam Eye Exam: Normal appearance Pupil Exam: NORMAL ACCOMODATION - ENT Exam ENT Exam: Mucous Membranes Dry - Neck Exam Neck exam: Positive for: Lymphadenopathy, Tenderness Results - Vital Signs Recent Vital Signs: Last Vital Signs Temp 98.2 F 01/21/18 08:13 Pulse 110 H 01/21/18 08:13 Resp 20 01/21/18 08:13 BP 144/92 H 01/21/18 08:13 Pulse Ox 96 01/21/18 08:13 - Labs Result Diagrams: 01/20/18 15:36 01/20/18 15:36 Labs: Laboratory Results - last 24 hr 01/20/18 01/20/18 01/21/18 15:36 15:36 07:30 WBC 9.6 RBC 4.71 Hgb 16.1 D Hct 46.8 MCV 99.4 H D MCH 34.3 H MCHC 34.5 RDW 14.5 Plt Count 193 MPV 8.8 Neut % (Auto) 74.0 Lymph % (Auto) 17.5 L [place] % (Auto) 5.8 Eos % (Auto) 2.0 Baso % (Auto) 0.7 Neut # (Auto) 7.1 H Lymph # (Auto) 1.7 [place] # (Auto) 0.6 Eos # (Auto) 0.2 Baso # (Auto) 0.1 Sodium 137 Potassium 4.0 Chloride 100 Carbon Dioxide 24 Anion Gap 16 BUN 10 Creatinine 0.6 L Est GFR ( Amer) > 60 Est GFR (Non-Af Amer) > 60 POC Glucose (mg/dL) 177 H Random Glucose 246 H Calcium 8.6 Total Bilirubin 0.4 AST 31 ALT 23 Alkaline Phosphatase 75 Total Protein 7.4 Albumin 3.8 Globulin 3.7 Albumin/Globulin Ratio 1.0 Assessment & Plan - Assessment and Plan (Free Text) Plan: Neck mass with lymphadenopathy Hx Hypertension, Diabetes, HLD, PVD, asthma/ COPD, and anxiety Imaging: - CT Neck: multiple enlarged and several necrotic lymph nodes. Recommend biopsy and PET Scan Management: - ECHO: ordered, pending results - Stress test: ordered, pending results Case discussed with Jamia Richard DO, PGY2
[2018-01-21] MEDS: (Lantus) Insulin Glargine, Recombinant SC SCH ×2 (09:39→21:40)
[2018-01-21] MEDS: cefTRIAXone IV 1 gm in Dextros 50 ML IVPB SCH (09:46)
[2018-01-21] MEDS: Enoxaparin 40 mg Syringe SC SCH (09:47)
--- NOTE | 2018-01-21 10:29 | CT ---
Date of service: 01/20/2018 PROCEDURE: CT NECK WITH CONTRAST HISTORY: right sided neck pain and mass COMPARISON: None available. TECHNIQUE: CT of the neck with intravenous contrast. Coronal and sagittal reformats generated. Intravenous contrast dose: Omnipaque 300, 100 cc Radiation dose: Total exam DLP = 448.22 mGy-cm. This CT exam was performed using one or more of the following dose reduction techniques: Automated exposure control, adjustment of the mA and/or kV according to patient size, and/or use of iterative reconstruction technique. FINDINGS: Examination is positive for gross, irregular mural thickening affecting the base of the tongue bilaterally but right greater than left, infiltrating into the hypopharynx, epiglottis, left epiglottis and right piriform sinus and right aryepiglottic fold. There is a necrotic appearing lymph node at the right level 2B jugular digastric lymph node chain measuring 1.6 x 1.7 x 1.8 cm. A similar lymph node is mildly enlarged at level 3 right jugular digastric chain measuring 1.5 x 1.3 x 1.7 cm. A parapharyngeal low-density lymph node measures 1.1 x 1.0 cm right lateral relative to the oropharynx. There is a final additional low-density lymph node measuring only 1.3 cm also level 3 right jugular digastric chain. The findings suspicious for superficial cancer such as squamous cell carcinoma though others are possible with metastasis to several right jugular digastric lymph nodes. Consider follow-up PET-CT and direct visualization with tissue diagnosis. Remaining neck soft tissues are unremarkable above and below the hyoid bone otherwise with the salivary glands and the thyroid gland unremarkable in appearance. Vascular anatomy reflects only bilateral carotid bulbar atherosclerosis extending into the proximal most bilateral internal carotid arteries without significant stenosis appreciable. Remainder the oral cavity is unremarkable swells the vocal cords in the visualized trachea. Pulmonary apices appear clear as well as thoracic aortic arch. LYMPH NODES: As above. CERVICAL SPINE: No fracture or focal lesion. OTHER FINDINGS: None. IMPRESSION: 1. 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 A few small necrotic lymph nodes are identified in the right neck in addition suspicious for metastases. Consider follow-up PET-CT as well as direct visualization/tissue diagnosis. 2. Bilateral carotid bulbar/ICA atherosclerosis. Concordant preliminary report from [facility], 01/20/2018, 7:39 p.m..
--- NOTE | 2018-01-21 12:33 | PCM.IRP ---
History of Present Illness - History of Present Illness History of Present Illness: IR consulted for biosy of neck mass/node. CT reviewed. Pt with possible oropharynageal mass and jugulodigastric adenopathy. The jugulodigastric nodes are not amenable to percutaneous biopsy based on current size/location. Objective - Vital Signs/Intake and Output Vital Signs (last 24 hours): Vital Signs - 24 hr 01/20/18 01/20/18 01/20/18 13:08 19:05 20:43 Temperature 98.5 F 98.6 F Pulse Rate 104 H 104 H Pulse Rate [ Bilateral Radial] Respiratory 18 20 Rate Blood Pressure 158/83 H 119/79 O2 Sat by Pulse 97 97 99 Oximetry 01/20/18 01/20/18 01/21/18 22:06 22:47 00:00 Temperature 99.1 F 98.6 F 98.1 F Pulse Rate 100 H 87 112 H Pulse Rate [ Bilateral Radial] Respiratory 18 20 20 Rate Blood Pressure 135/81 128/92 H 137/90 O2 Sat by Pulse 97 96 98 Oximetry 01/21/18 01/21/18 01/21/18 03:02 08:13 09:46 Temperature 98.2 F Pulse Rate 110 H Pulse Rate [ 112 H Bilateral Radial] Respiratory 20 Rate Blood Pressure 144/92 H 140/70 O2 Sat by Pulse 96 Oximetry Intake and Output (last 12 hours): Intake & Output 01/20/18 01/21/18 01/21/18 18:59 06:59 18:59 Intake Total 360 Balance 360 Weight 140 lb Intake: Oral 360 Other: # Voids Urine, Voided 2 - Medications Medications: Current Medications Acetaminophen (Tylenol 325mg Tab) 650 mg PO Q6 PRN PRN Reason: Pain, Mild (1-3) Last Admin: 01/21/18 06:08 Dose: 650 mg Carvedilol (Coreg) 25 mg PO BID [facility] Last Admin: 01/21/18 09:46 Dose: 25 mg Clopidogrel Bisulfate (Plavix) 75 mg PO DAILY [facility] Last Admin: 01/21/18 09:46 Dose: 75 mg Enoxaparin Sodium (Lovenox) 40 mg SC DAILY [facility] Last Admin: 01/21/18 09:47 Dose: 40 mg Gabapentin (Neurontin) 300 mg PO TID [facility] Last Admin: 01/21/18 09:47 Dose: 300 mg Ceftriaxone Sodium (Rocephin Iv 1 Gm Duplex) 50 mls @ 100 mls/hr IVPB DAILY [facility]; Protocol Last Admin: 01/21/18 09:46 Dose: 100 mls/hr Insulin Aspart (Novolog) 0 unit SC ACHS [facility]; Protocol Last Admin: 01/21/18 07:54 Dose: Not Given Insulin Glargine (Lantus) 35 unit SC Q12 [facility] Last Admin: 01/21/18 09:39 Dose: Not Given Lidocaine (Lidoderm) 1 ea TD Q24H [facility] Last Admin: 01/20/18 23:48 Dose: 1 ea Losartan Potassium (Cozaar) 25 mg PO DAILY [facility] Last Admin: 01/21/18 09:46 Dose: 25 mg Rosuvastatin Calcium (Crestor) 5 mg PO HS [facility] Sennosides (Senokot Tab) 8.6 mg PO DAILY [facility] Last Admin: 01/21/18 09:45 Dose: Not Given Zolpidem Tartrate (Ambien) 5 mg PO HS PRN PRN Reason: Insomnia Last Admin: 01/20/18 23:43 Dose: 5 mg - Labs Labs (last 24 hours): Laboratory Results - last 24 hr 01/20/18 01/20/18 01/21/18 15:36 15:36 07:30 WBC 9.6 RBC 4.71 Hgb 16.1 D Hct 46.8 MCV 99.4 H D MCH 34.3 H MCHC 34.5 RDW 14.5 Plt Count 193 MPV 8.8 Neut % (Auto) 74.0 Lymph % (Auto) 17.5 L [place] % (Auto) 5.8 Eos % (Auto) 2.0 Baso % (Auto) 0.7 Neut # (Auto) 7.1 H Lymph # (Auto) 1.7 [place] # (Auto) 0.6 Eos # (Auto) 0.2 Baso # (Auto) 0.1 Sodium 137 Potassium 4.0 Chloride 100 Carbon Dioxide 24 Anion Gap 16 BUN 10 Creatinine 0.6 L Est GFR ( Amer) > 60 Est GFR (Non-Af Amer) > 60 POC Glucose (mg/dL) 177 H Random Glucose 246 H Calcium 8.6 Total Bilirubin 0.4 AST 31 ALT 23 Alkaline Phosphatase 75 Total Protein 7.4 Albumin 3.8 Globulin 3.7 Albumin/Globulin Ratio 1.0
--- NOTE | 2018-01-21 14:58 | PCM.SURG1 ---
Surgeon's Initial Post Op Note - Surgeon's Notes Surgeon: Ta Oshea MD Pasteurizing Machine Operator: NONE Type of Anesthesia: Local Pre-Operative Diagnosis: Lingual mass, cervical lyphadenopathy Operative Findings: US showed a complex solid 13 mm lymph node in the right neck Post-Operative Diagnosis: Lingual mass, cervical lyphadenopathy Operation Performed: US guided FNA Specimen/Specimens Removed: 25 g FNA x 4 passes Estimated Blood Loss: EBL {In ML}: 0 Blood Products Given: N/A Drains Used: No Drains Post-Op Condition: Fair Date of Surgery/Procedure: 01/21/18 Time of Surgery/Procedure: 14:55
--- NOTE | 2018-01-21 15:43 | CP.PCM.CON ---
<ToriDuc ortiz - Last Filed: 01/21/18 15:50> History of Present Illness - History of Present Illness History of Present Illness: PGY-1 Pulmonology Consult note for Dr. Blair CC: COPD and cough Patient is a 52 year old male with a PMHx of hypertension, diabetes, HLD, PVD, asthma/COPD, and anxiety presenting with mouth and neck pain for 2 months which has been getting worse over time. Patient denies any difficulties with breathing or swallowing but he can feel a "lump" and discomfort when he swallows. Patient admits to waking up at night sometimes with dyspnea ever since he noticed the mass in his neck 2 months ago. He further denies fever, chills, chest pain, shortness of breath, abdominal pain, n/v/d/c, or urinary complaints. 12 system ROS reviewed and otherwise negative except mentioned in HPI. PMD: Dr. Lee PMHx: Hypertension, DM-2, HLD, PVD, asthma/COPD, anxiety PSHx: Bilateral BKA, R SFA stenting (01/2017), Left AKA (07/2015), Ex Lap LAR, bowel resection, repair of colovesicular fistula (11/2015), Fem-Fem bypass (2011) All: NKDA Social Hx: smokes 1.5 ppd for 43 years, 1 pint of vodka daily, occasional marijuana use Family Hx: Unremarkable Review of Systems - Review of Systems All systems: reviewed and no additional remarkable complaints except Past Patient History - Infectious Disease Hx of Infectious Diseases: None - Past Medical History & Family History Past Medical History?: Yes - Past Social History Smoking Status: Current Some Days Smoker - CARDIAC Hx Hypercholesterolemia: Yes Hx Hypertension: Yes - PULMONARY Hx Asthma: Yes Hx Chronic Obstructive Pulmonary Disease (COPD): Yes - NEUROLOGICAL Hx Neurological Disorder: No - HEENT Hx HEENT Problems: No - RENAL Hx Chronic Kidney Disease: No - ENDOCRINE/METABOLIC Hx Endocrine Disorders: Yes Hx Diabetes Mellitus Type 1: Yes - HEMATOLOGICAL/ONCOLOGICAL Hx Blood Disorders: No - INTEGUMENTARY Hx Dermatological Problems: Yes Other/Comment: PT HAS BROWN SPOTS ON ARMS AND BACK 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 - MUSCULOSKELETAL/RHEUMATOLOGICAL Hx Falls: No - GASTROINTESTINAL Hx Diverticulitis: Yes Hx Gastritis: Yes - GENITOURINARY/GYNECOLOGICAL Hx Genitourinary Disorders: Yes Hx Urinary Tract Infection: Yes Other/Comment: PT STATES HE HAS BROWN URINE AND SOME FECAL MATERIAL IN HIS URINE. - PSYCHIATRIC Hx Substance Use: Yes (WEEDS) - SURGICAL HISTORY Hx Surgeries: Yes Hx Amputation: Yes (LEFT aKA R BKA) Hx Angiogram: Yes Hx Cardiac Catheterization: Yes Hx Femoral-Popliteal Bypass Graft: Yes (X 3) Hx Vascular Surgery: Yes Other/Comment: Vascular bypass surgery femoral bilateral 2012,LT. BELOW KNEE AM PUTATION, right 5th toe amputation - ANESTHESIA Hx Anesthesia: Yes Hx Anesthesia Reactions: No Hx Malignant Hyperthermia: No Meds Allergies/Adverse Reactions: Allergies Allergy/AdvReac Type Severity Reaction Status Date / Time No Known Allergies Allergy Verified 03/27/17 14:16 - Medications Medications: Current Medications Acetaminophen (Tylenol 325mg Tab) 650 mg PO Q6 PRN PRN Reason: Pain, Mild (1-3) Last Admin: 01/21/18 06:08 Dose: 650 mg Carvedilol (Coreg) 25 mg PO BID [facility] Last Admin: 01/21/18 09:46 Dose: 25 mg Clopidogrel Bisulfate (Plavix) 75 mg PO DAILY [facility] Last Admin: 01/21/18 09:46 Dose: 75 mg Enoxaparin Sodium (Lovenox) 40 mg SC DAILY [facility] Last Admin: 01/21/18 09:47 Dose: 40 mg Gabapentin (Neurontin) 300 mg PO TID [facility] Last Admin: 01/21/18 13:24 Dose: 300 mg Ceftriaxone Sodium (Rocephin Iv 1 Gm Duplex) 50 mls @ 100 mls/hr IVPB DAILY [facility]; Protocol Last Admin: 01/21/18 09:46 Dose: 100 mls/hr Insulin Aspart (Novolog) 0 unit SC ACHS [facility]; Protocol Last Admin: 01/21/18 13:01 Dose: 3 units Insulin Glargine (Lantus) 35 unit SC Q12 [facility] Last Admin: 01/21/18 09:39 Dose: Not Given Lidocaine (Lidoderm) 1 ea TD Q24H [facility] Last Admin: 01/20/18 23:48 Dose: 1 ea Losartan Potassium (Cozaar) 25 mg PO DAILY [facility] Last Admin: 01/21/18 09:46 Dose: 25 mg Rosuvastatin Calcium (Crestor) 5 mg PO HS [facility] Sennosides (Senokot Tab) 8.6 mg PO DAILY [facility] Last Admin: 01/21/18 09:45 Dose: Not Given Tramadol HCl (Ultram) 50 mg PO Q8 PRN PRN Reason: Pain, moderate (4-7) Last Admin: 01/21/18 13:07 Dose: 50 mg Zolpidem Tartrate (Ambien) 5 mg PO HS PRN PRN Reason: Insomnia Last Admin: 01/20/18 23:43 Dose: 5 mg Physical Exam - Constitutional Appears: Well, Non-toxic, No Acute Distress - Head Exam Head Exam: ATRAUMATIC, NORMOCEPHALIC - Eye Exam Eye Exam: EOMI, Normal appearance - ENT Exam ENT Exam: Mucous Membranes Moist - Neck Exam Additional comments: Dressing C/D/I - Respiratory Exam Respiratory Exam: Clear to Auscultation Bilateral, NORMAL BREATHING PATTERN. absent: Accessory Muscle Use, Decreased Breath Sounds, Rales, Rhonchi, Wheezes, Respiratory Distress - Cardiovascular Exam Cardiovascular Exam: REGULAR RHYTHM, +S1, +S2. absent: Bradycardia, Tachycardia, Gallop, Rubs, Systolic Murmur - GI/Abdominal Exam GI & Abdominal Exam: Normal Bowel Sounds, Soft. absent: Tenderness - Extremities Exam Extremities exam: Negative for: normal inspection Additional comments: Bilateral legs s/p amputation - Neurological Exam Neurological exam: Alert, CN II-XII Intact, Oriented x3 - Psychiatric Exam Psychiatric exam: Normal Affect, Normal Mood - Skin Skin Exam: Dry, Intact, Normal Color, Warm Results - Vital Signs Recent Vital Signs: Last Vital Signs Temp 98.2 F 01/21/18 08:13 Pulse 110 H 01/21/18 08:13 Resp 20 01/21/18 08:13 BP 140/70 01/21/18 09:46 Pulse Ox 96 01/21/18 08:13 - Labs Result Diagrams: 01/20/18 15:36 01/20/18 15:36 Labs: Laboratory Results - last 24 hr 01/20/18 01/20/18 01/21/18 15:36 15:36 07:30 WBC 9.6 RBC 4.71 Hgb 16.1 D Hct 46.8 MCV 99.4 H D MCH 34.3 H MCHC 34.5 RDW 14.5 Plt Count 193 MPV 8.8 Neut % (Auto) 74.0 Lymph % (Auto) 17.5 L Ransom % (Auto) 5.8 Eos % (Auto) 2.0 Baso % (Auto) 0.7 Neut # (Auto) 7.1 H Lymph # (Auto) 1.7 Ransom # (Auto) 0.6 Eos # (Auto) 0.2 Baso # (Auto) 0.1 Sodium 137 Potassium 4.0 Chloride 100 Carbon Dioxide 24 Anion Gap 16 BUN 10 Creatinine 0.6 L Est GFR ( Amer) > 60 Est GFR (Non-Af Amer) > 60 POC Glucose (mg/dL) 177 H Random Glucose 246 H Calcium 8.6 Total Bilirubin 0.4 AST 31 ALT 23 Alkaline Phosphatase 75 Total Protein 7.4 Albumin 3.8 Globulin 3.7 Albumin/Globulin Ratio 1.0 01/21/18 12:46 WBC RBC Hgb Hct MCV MCH MCHC RDW Plt Count MPV Neut % (Auto) Lymph % (Auto) Ransom % (Auto) Eos % (Auto) Baso % (Auto) Neut # (Auto) Lymph # (Auto) Ransom # (Auto) Eos # (Auto) Baso # (Auto) Sodium Potassium Chloride Carbon Dioxide Anion Gap BUN Creatinine Est GFR ( Amer) Est GFR (Non-Af Amer) POC Glucose (mg/dL) 207 H Random Glucose Calcium Total Bilirubin AST ALT Alkaline Phosphatase Total Protein Albumin Globulin Albumin/Globulin Ratio Assessment & Plan - Assessment and Plan (Free Text) Assessment: Patient is a 52 year old male with a PMHx of hypertension, diabetes, HLD, PVD, asthma/COPD, and anxiety presenting with mouth and neck pain for 2 months. Pulmonology consulted for cough and history of COPD. Plan: Neck mass with lymphadenopathy - CT Neck: multiple enlarged and several necrotic lymph nodes. Recommend biopsy and PET Scan - Mass biopsy: f/u Tobacco abuse disorder - Pulmonary function test: f/u - Duonebs Q4 PRN - Chest Xray: f/u - Counseled patient on smoking cessation - Patient not complaining of shortness of breath Case discussed with Dr. Johnnie Sanchez, PGY-1 <Quan Blair - Last Filed: 01/21/18 16:15> Meds - Medications Medications: Current Medications Acetaminophen (Tylenol 325mg Tab) 650 mg PO Q6 PRN PRN Reason: Pain, Mild (1-3) Last Admin: 12/12/18 16:10 Dose: 650 mg Albuterol/Ipratropium (Duoneb 3 Mg/0.5 Mg (3 Ml) Ud) 3 ml INH Q4H PRN PRN Reason: Shortness of Breath Carvedilol (Coreg) 25 mg PO BID [facility] Last Admin: 01/21/18 09:46 Dose: 25 mg Clopidogrel Bisulfate (Plavix) 75 mg PO DAILY [facility] Last Admin: 01/21/18 09:46 Dose: 75 mg Enoxaparin Sodium (Lovenox) 40 mg SC DAILY [facility] Last Admin: 01/21/18 09:47 Dose: 40 mg Gabapentin (Neurontin) 300 mg PO TID [facility] Last Admin: 01/21/18 13:24 Dose: 300 mg Ceftriaxone Sodium (Rocephin Iv 1 Gm Duplex) 50 mls @ 100 mls/hr IVPB DAILY [facility]; Protocol Last Admin: 01/21/18 09:46 Dose: 100 mls/hr Insulin Aspart (Novolog) 0 unit SC ACHS [facility]; Protocol Last Admin: 01/21/18 13:01 Dose: 3 units Insulin Glargine (Lantus) 35 unit SC Q12 [facility] Last Admin: 01/21/18 09:39 Dose: Not Given Lidocaine (Lidoderm) 1 ea TD Q24H [facility] Last Admin: 01/20/18 23:48 Dose: 1 ea Losartan Potassium (Cozaar) 25 mg PO DAILY [facility] Last Admin: 01/21/18 09:46 Dose: 25 mg Rosuvastatin Calcium (Crestor) 5 mg PO HS [facility] Sennosides (Senokot Tab) 8.6 mg PO DAILY [facility] Last Admin: 01/21/18 09:45 Dose: Not Given Tramadol HCl (Ultram) 50 mg PO Q8 PRN PRN Reason: Pain, moderate (4-7) Last Admin: 01/21/18 13:07 Dose: 50 mg Zolpidem Tartrate (Ambien) 5 mg PO HS PRN PRN Reason: Insomnia Last Admin: 01/20/18 23:43 Dose: 5 mg Results - Vital Signs Recent Vital Signs: Last Vital Signs Temp 98.2 F 01/21/18 08:13 Pulse 110 H 01/21/18 08:13 Resp 20 01/21/18 08:13 BP 140/70 01/21/18 09:46 Pulse Ox 96 01/21/18 08:13 - Labs Result Diagrams: 01/20/18 15:36 01/20/18 15:36 Labs: Laboratory Results - last 24 hr 01/21/18 01/21/18 07:30 12:46 POC Glucose (mg/dL) 177 H 207 H Attending/Attestation - Attestation I have personally seen and examined this patient.: Yes I have fully participated in the care of the patient.: Yes I have reviewed all pertinent clinical information: Yes Notes (Text): 01/21/18 16:14 Patient seen and examined Status post biopsy of neck mass Follow-up pathology Long history of smoking Pulmonary function test Patient advised to quit smoking
[2018-01-21] MEDS ORDERED: Albuterol-Ipratrop 3 mg / 0.5 (3 ml) UD INH PRN (15:50)
--- NOTE | 2018-01-21 17:09 | RAD ---
HISTORY: cough, shortness of breath, laryngeal mass COMPARISON: Chest x-ray performed 04/04/17 TECHNIQUE: Chest PA and lateral FINDINGS: Examination limited by habitus. LUNGS: No focal consolidation. Please note that chest x-ray has limited sensitivity for the detection of pulmonary masses. PLEURA: No significant pleural effusion identified. No definite pneumothorax . CARDIOVASCULAR: Cardiomegaly. Atherosclerotic calcifications present. OSSEOUS STRUCTURES: Kyphosis. Osseous demineralization. Degenerative changes. VISUALIZED UPPER ABDOMEN: Unremarkable. OTHER FINDINGS: None. IMPRESSION: Cardiomegaly.
--- NOTE | 2018-01-21 21:37 | CP.PCM.HP ---
Past Patient History - Infectious Disease Hx of Infectious Diseases: None - Past Medical History & Family History Past Medical History?: Yes - Past Social History Smoking Status: Current Some Days Smoker - CARDIAC Hx Hypercholesterolemia: Yes Hx Hypertension: Yes - PULMONARY Hx Asthma: Yes Hx Chronic Obstructive Pulmonary Disease (COPD): Yes - NEUROLOGICAL Hx Neurological Disorder: No - HEENT Hx HEENT Problems: No - RENAL Hx Chronic Kidney Disease: No - ENDOCRINE/METABOLIC Hx Endocrine Disorders: Yes Hx Diabetes Mellitus Type 1: Yes - HEMATOLOGICAL/ONCOLOGICAL Hx Blood Disorders: No - INTEGUMENTARY Hx Dermatological Problems: Yes Other/Comment: PT HAS BROWN SPOTS ON ARMS AND BACK 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 - MUSCULOSKELETAL/RHEUMATOLOGICAL Hx Falls: No - GASTROINTESTINAL Hx Diverticulitis: Yes Hx Gastritis: Yes - GENITOURINARY/GYNECOLOGICAL Hx Genitourinary Disorders: Yes Hx Urinary Tract Infection: Yes Other/Comment: PT STATES HE HAS BROWN URINE AND SOME FECAL MATERIAL IN HIS URINE. - PSYCHIATRIC Hx Substance Use: Yes (WEEDS) - SURGICAL HISTORY Hx Surgeries: Yes Hx Amputation: Yes (LEFT aKA R BKA) Hx Angiogram: Yes Hx Cardiac Catheterization: Yes Hx Femoral-Popliteal Bypass Graft: Yes (X 3) Hx Vascular Surgery: Yes Other/Comment: Vascular bypass surgery femoral bilateral 2012,LT. BELOW KNEE AMPUTATION, right 5th toe amputation - ANESTHESIA Hx Anesthesia: Yes Hx Anesthesia Reactions: No Hx Malignant Hyperthermia: No Meds Allergies/Adverse Reactions: Allergies Allergy/AdvReac Type Severity Reaction Status Date / Time No Known Allergies Allergy Verified 03/27/17 14:16 Results - Vital Signs Recent Vital Signs: Last Vital Signs Temp 98.3 F 01/21/18 16:00 Pulse 78 01/21/18 16:00 Resp 20 01/21/18 16:00 BP 140/70 01/21/18 18:06 Pulse Ox 97 01/21/18 16:00 - Labs Result Diagrams: 01/20/18 15:36 01/20/18 15:36 Labs: Laboratory Results - last 24 hr 01/21/18 01/21/18 01/21/18 07:30 12:46 16:19 POC Glucose (mg/dL) 177 H 207 H 181 H 01/21/18 21:12 POC Glucose (mg/dL) 222 H
--- NOTE | 2018-01-21 23:15 | CON ---
DATE: 01/21/2018 REASON FOR CONSULTATION: Neck mass. REQUESTING PHYSICIAN: Dr. Lee. HISTORY OF PRESENT ILLNESS: This is a 52-year-old male with multiple week history of right neck mass which is painful, constant. There is no dysphagia, no hoarseness, no voice changes. PAST MEDICAL HISTORY: As noted in the chart by me. MEDICATIONS: As noted in the chart by me. PHYSICAL EXAMINATION: HEAD: Atraumatic and normocephalic. FACE: Good facial movements bilaterally. CONSTITUTIONAL: Well fed, well nourished. COMMUNICATIONS: Communicates well and appropriately. EXTERNAL NOSE AND EARS: No masses. No lesions. No erythema. No edema. INTERNAL NOSE AND EARS: Deviated septum. No masses. No lesions. No erythema. No edema. ORAL CAVITY AND OROPHARYNX: No masses. No lesions. No erythema. No edema. LIPS AND GUMS: No masses. No lesions. No erythema. No edema. NECK: Supple. THYROID: No thyromegaly. No goiter. LYMPH NODES: Lymphadenopathy of the neck, level I/II. LABORATORY DATA: CAT scan was reviewed by me which revealed base of tongue mass as well as lymphadenopathy. PLAN: Since the patient has base of tongue mass and has lymphadenopathy, I think it will be safe for the patient to attempt to have an ultrasound-guided FNA of lung since they requires no anesthesia to make diagnosis. Colton Contreras MD MTDSusan
[2018-01-22] MEDS: Lidocaine 5% Patch TD SCH ×2 (00:46→22:45)
--- NOTE | 2018-01-22 06:10 | HP ---
CHIEF COMPLAINT: Right-sided neck pain, intense. 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 He is alcoholic and he smokes heavily. He has hypertension, hyperlipidemia. He is compliant with his diet, medications and followup; however, he smokes and drinks. The patient came in because of right-sided neck pain, which was intense for last one week, worsening. He came to the emergency room, unbearable /10, not associated with dysphagia or odynophagia. The patient denies any hematemesis, melena, or hematochezia. He is also found to have a neck and throat mass with lymph node in the neck. He denies any fever, chills, or rigors. He denies any nausea, vomiting, or diarrhea. He denies any polyuria, polydipsia, polyphagia. He has chronic cough. He has weakness. He appears anxious, depressed. He denied any rectal pain, joint pain, or hip pain. There is no history of shortness of breath, but he coughs heavily. PAST MEDICAL HISTORY: PAD with bilateral lower extremity amputation, chronic bronchitis, diabetes, hypertension, hyperlipidemia, and anxiety. SOCIAL HISTORY: He smokes. He is alcoholic. He denies any other substance abuse. CURRENT MEDICATIONS: At home, he is on Crestor, Ambien, multivitamin, Zofran p.r.n., multivitamin, Cozaar, Lantus, NovoLog, Neurontin, Plavix, Coreg, Tylenol. PHYSICAL EXAMINATION: GENERAL: A middle-aged male, in no acute distress with neck pain. VITAL SIGNS: Blood pressure is 109/74, pulse 78, respiratory rate 20, temperature 98.3. SKIN: No rashes. No bruises. HEENT: Atraumatic and normocephalic. Negative pallor. Negative jaundice. Extraocular movements are intact. NECK: Supple. No JVD. CHEST WALL: Bilateral symmetrical expansion. LUNGS: Bilateral rhonchi. Decreased air entry. CARDIOVASCULAR SYSTEM: S1 and S2 are regular. ABDOMEN: Soft and nontender. Bowel sounds are positive. RECTAL: No masses. No bleed. EXTREMITIES: No clubbing or cyanosis. Left AKA and right BKA. CENTRAL NERVOUS SYSTEM: Normal. ASSESSMENT: 1. Throat mass with lymph node in the neck, rule out malignant neoplasm, status post biopsy. 2. Diabetes. 3. Hypertension. 4. Hyperlipidemia. 5. Chronic obstructive pulmonary disease. PLAN: Await lymph node biopsy. Monitor the patient. Jagdeep Lee MD
--- NOTE | 2018-01-22 06:17 | CARD ---
APPROVED REPORT Date of service: 01/21/2018 EXAM: Two-dimensional and M-mode echocardiogram with Doppler and color Doppler. INDICATION COPD RISK FACTORS Hypertension Diabetes 2D DIMENSIONS IVSd1.0 (0.7-1.1cm)LVDd4.4 (3.9-5.9cm) PWd1.2 (0.7-1.1cm)LA [id number] (18-58mL) LVDs2.8 (2.5-4.0cm)FS (%) 37.6 % LVEF (%)67.9 (>50%)LVEF (Llamas's)66.25 % IVC0.00 cm M-Mode DIMENSIONS RVDd2.87 (2.1-3.2cm)Left Atrium (MM)3.80 (2.5-4.0cm) IVSd1.28 (0.7-1.1cm)Aortic Root2.88 (2.2-3.7cm) LVDd4.21 (4.0-5.6cm)Aortic Cusp Exc.2.14 (1.5-2.0cm) PWd1.37 (0.7-1.1cm)FS (%) 34 % LVDs2.79 (2.0-3.8cm)LVEF (%)63 (>50%) Mitral Valve MV E Unwdjczz13.4cm/sMV A Atbzmymm27.7cm/sE/A ratio0.7 TDI Lateral E' Peak V7.45cm/sMedial E' Peak V7.06cm/sE/Lateral E'8.5 E/Medial E'9.0 Tricuspid Valve TR Peak Afkzxlnf651ke/sTR Peak Gr.[id number] LEFT VENTRICLE The left ventricle is normal size. There is normal left ventricular wall thickness. Left ventricle systolic function is normal. The Ejection Fraction is 65-70%. There is normal LV segmental wall motion. Tissue Doppler imaging reveals abnormal left ventricular diastolic dysfunction. RIGHT VENTRICLE The right ventricle is normal size. There is normal right ventricular wall thickness. The right ventricular systolic function is normal. ATRIA The left atrium size is normal. The right atrium size is normal. The interatrial septum is intact with no evidence for an atrial septal defect. AORTIC VALVE The aortic valve is normal in structure. No aortic regurgitation is present. There is no aortic valvular stenosis. MITRAL VALVE The mitral valve is normal in structure. There is no evidence of mitral valve prolapse. There is no mitral valve stenosis. Mitral regurgitation is mild. TRICUSPID VALVE The tricuspid valve is normal in structure. There is trace tricuspid regurgitation. Right ventricular systolic pressure is estimated at less than 30 mmHg. There is no pulmonary hypertension. PULMONIC VALVE The pulmonic valve is not well visualized. There is no pulmonic valvular regurgitation. GREAT VESSELS The aortic root is normal in size. PERICARDIAL EFFUSION There is no significant pericardial effusion. <Conclusion> Left ventricle systolic function is normal. The Ejection Fraction is 65-70%. Diastolic dysfunction. No aortic regurgitation is present. Mitral regurgitation is mild. There is trace tricuspid regurgitation. There is no pulmonary hypertension.
[2018-01-22] MEDS: (Novolog) Insulin Aspart, Recombinant 100 u/ml 10 ml vial SC SCH ×4 (08:24→21:45)
[2018-01-22] MEDS: Enoxaparin 40 mg Syringe SC SCH (10:14)
[2018-01-22] MEDS: (Lantus) Insulin Glargine, Recombinant SC SCH ×2 (10:15→21:43)
[2018-01-22] MEDS: cefTRIAXone IV 1 gm in Dextros 50 ML IVPB SCH (10:15)
--- NOTE | 2018-01-22 15:34 | CP.PCM.PN ---
Subjective - Date & Time of Evaluation Date of Evaluation: 01/22/18 Time of Evaluation: 09:20 - Subjective Subjective: Patient seen and examined at bedside, lying down comfortably. Afebrile and in no acute distress. Denies SOB, cough, fever/chills, chest pain Creatinine: 0.6 L Glucose: 246 H BP: 147/83 Blood culture 01/20: negative after 24 hours; gram stain pending CXR 01/21: cardiomegaly. Follow-up pathology PFT will be done at 1-2 pm today. Patient advised to quit smoking Objective - Vital Signs/Intake and Output Vital Signs (last 24 hours): Temp Pulse Resp BP Pulse Ox 98 F 85 20 147/83 97 01/22/18 10:09 01/22/18 10:09 01/22/18 10:09 01/22/18 10:14 01/22/18 10:09 Intake and Output: 01/22/18 01/22/18 06:59 18:59 Intake Total 0 620 Balance 0 620 - Medications Medications: Current Medications Acetaminophen (Tylenol 325mg Tab) 650 mg PO Q6 PRN PRN Reason: Pain, Mild (1-3) Last Admin: 01/22/18 10:14 Dose: 650 mg Albuterol/Ipratropium (Duoneb 3 Mg/0.5 Mg (3 Ml) Ud) 3 ml INH Q4H PRN PRN Reason: Shortness of Breath Carvedilol (Coreg) 25 mg PO BID [facility] Last Admin: 01/22/18 10:14 Dose: 25 mg Clopidogrel Bisulfate (Plavix) 75 mg PO DAILY [facility] Last Admin: 01/22/18 10:14 Dose: 75 mg Enoxaparin Sodium (Lovenox) 40 mg SC DAILY [facility] Last Admin: 01/22/18 10:14 Dose: Not Given Gabapentin (Neurontin) 300 mg PO TID [facility] Last Admin: 01/22/18 14:32 Dose: 300 mg Ceftriaxone Sodium (Rocephin Iv 1 Gm Duplex) 50 mls @ 100 mls/hr IVPB DAILY [facility]; Protocol Last Admin: 01/22/18 10:15 Dose: 100 mls/hr Insulin Aspart (Novolog) 0 unit SC ACHS [facility]; Protocol Last Admin: 01/22/18 11:26 Dose: 3 units Insulin Glargine (Lantus) 35 unit SC Q12 [facility] Last Admin: 01/22/18 10:15 Dose: 35 units Lidocaine (Lidoderm) 1 ea TD Q24H [facility] Last Admin: 01/22/18 00:46 Dose: 1 ea Losartan Potassium (Cozaar) 25 mg PO DAILY [facility] Last Admin: 01/22/18 10:14 Dose: 25 mg Rosuvastatin Calcium (Crestor) 5 mg PO HS [facility] Last Admin: 01/21/18 21:39 Dose: 5 mg Sennosides (Senokot Tab) 8.6 mg PO DAILY [facility] Last Admin: 01/22/18 10:14 Dose: 8.6 mg Tramadol HCl (Ultram) 50 mg PO Q6 PRN PRN Reason: Pain, moderate (4-7) Last Admin: 01/22/18 11:27 Dose: 50 mg Zolpidem Tartrate (Ambien) 5 mg PO HS PRN PRN Reason: Insomnia Last Admin: 01/20/18 23:43 Dose: 5 mg - Labs Labs: 01/20/18 15:36 01/20/18 15:36
--- NOTE | 2018-01-22 21:52 | CP.PCM.PN ---
Subjective - Subjective Subjective: dictaed Objective - Vital Signs/Intake and Output Vital Signs (last 24 hours): Temp Pulse Resp BP Pulse Ox 98.0 F 79 20 128/74 98 01/22/18 17:14 01/22/18 16:11 01/22/18 16:11 01/22/18 18:00 01/22/18 16:11 Intake and Output: 01/22/18 01/23/18 18:59 06:59 Intake Total 620 Balance 620 - Medications Medications: Current Medications Acetaminophen (Tylenol 325mg Tab) 650 mg PO Q6 PRN PRN Reason: Pain, Mild (1-3) Last Admin: 01/22/18 16:14 Dose: 650 mg Albuterol/Ipratropium (Duoneb 3 Mg/0.5 Mg (3 Ml) Ud) 3 ml INH Q4H PRN PRN Reason: Shortness of Breath Carvedilol (Coreg) 25 mg PO BID [facility] Last Admin: 01/22/18 18:00 Dose: 25 mg Clopidogrel Bisulfate (Plavix) 75 mg PO DAILY [facility] Last Admin: 01/22/18 10:14 Dose: 75 mg Enoxaparin Sodium (Lovenox) 40 mg SC DAILY [facility] Last Admin: 01/22/18 10:14 Dose: Not Given Gabapentin (Neurontin) 300 mg PO TID [facility] Last Admin: 01/22/18 18:00 Dose: 300 mg Ceftriaxone Sodium (Rocephin Iv 1 Gm Duplex) 50 mls @ 100 mls/hr IVPB DAILY [facility]; Protocol Last Admin: 01/22/18 10:15 Dose: 100 mls/hr Insulin Aspart (Novolog) 0 unit SC ACHS [facility]; Protocol Last Admin: 01/22/18 21:45 Dose: Not Given Insulin Glargine (Lantus) 35 unit SC Q12 [facility] Last Admin: 01/22/18 21:43 Dose: 35 units Lidocaine (Lidoderm) 1 ea TD Q24H [facility] Last Admin: 01/22/18 00:46 Dose: 1 ea Losartan Potassium (Cozaar) 25 mg PO DAILY [facility] Last Admin: 01/22/18 10:14 Dose: 25 mg Rosuvastatin Calcium (Crestor) 5 mg PO HS [facility] Last Admin: 01/22/18 21:43 Dose: 5 mg Sennosides (Senokot Tab) 8.6 mg PO DAILY [facility] Last Admin: 01/22/18 10:14 Dose: 8.6 mg Tramadol HCl (Ultram) 50 mg PO Q6 PRN PRN Reason: Pain, moderate (4-7) Last Admin: 01/22/18 18:05 Dose: 50 mg Zolpidem Tartrate (Ambien) 5 mg PO HS PRN PRN Reason: Insomnia Last Admin: 01/22/18 21:47 Dose: 5 mg - Labs Labs: 01/20/18 15:36 01/20/18 15:36
--- NOTE | 2018-01-23 04:45 | CARD ---
APPROVED REPORT Date of service: 01/22/2018 Protocol: LEXISCAN Test Type: LEXISCAN Test Indications: PRE OP Medications: LIST SCAN Medical History: PRE OP Target HR: 167 bpm Resting ECG: NSR Resting Heart Rate: 77 bpm Resting Blood Pressure: 134/80mmHg submaximum (85%): 142 bpm TEST SUMMARY [id number]/80.0. INFUSIONDOSE 100:300.00.01.077/.0. [id number]/80.1. PROCEDURE Pharmacologic stress testing was performed using 0.4mg per 5ml of regadenoson given intravenously over 7-10 seconds. POST EXERCISE Reason for Termination: Protocol Completed Target HR: No Max HR: 77 bpm 58% of Maximum Predicted HR: 167 bpm Exercise duration: 00:30 min:sec, 0 Stage Exercise capacity: 1.0METs Max Blood Pressure: 134/80mmHg Blood Pressure response to exercise: normal resting BP - appropriate response Heart Rate response to exercise: appropriate Chest Pain: No, none Angina index: 0 Arrhythmia: No, none ST Change: No, none Deviation: 0 mm INTERPRETATION Stress EKG Conclusion: NEGATIVE LEXISCAN STRESS TEST NORMAL BP RESPONSE TO LEXISCAN NUCLEAR STUDIES TO BE READ SEPARATELY EXAM: Myocardial Perfusion REST/STRESS Imaging Protocol The imaging protocol used to acquire images was Rest Tc-99m/stress Tc-99m 2 days Rest Spect myocardial perfusion imaging was performed in supine position 41 minutes following the injection of 32 mCi of Tc-99 Myoview. Gated Stress Spect was performed 40 minutes after intravenous 33 mCi Tc-99 Myoview injection. The images were gated to evaluate regional wall motion and calculate ventricular ejection fraction.Images were reconstructed using backfilter projection method in short horizontal and verticle long axis. Spect slices were generated. RESTING DATA EDV83.27ryVB4.70L/min ESV29.00mlMyocardial Sqkl597.00g Av. Heart Rate87.00bpm EF65.00% STRESS DATA EDV88.04gxUV5.70L/min ESV28.00mlMyocardial Gzvj838.00g EF68.00% Regional WT score at stress:1.00 Regional WM score at stress:0.00 Summed WT score at stress:8.00 Av. Heart Rate80.00bpmSummed WM score at stress:0.00 LV Perf. Quant 17 Seg. SSS2.00 17 Seg. SRS2.00 17 Seg. SDS0.00 Stress Defect Extent (% LAD)1.30Rest Defect Extent (% LAD)0.00Rev. Defect Extent (% LAD)1.30 Stress Defect Extent (% LCX)22.50Rest Defect Extent (% LCX)22.50Rev. Defect Extent (% LCX)0.00 Stress Defect Extent (% RCA)0.00Rest Defect Extent (% RCA)0.00Rev. Defect Extent (% RCA)0.00 Stress Defect Extent (% RICK)7.20Rest Defect Extent (% RICK)5.00Rev. Defect Extent (% RICK)1.50 IMPRESSION Normal Myocardial Perfusion exercise stress study Left Ventricle LV Function:Left ventricle systolic function is normal. The Ejection Fraction is 65-70%. Regional Wall Motion:No regional wall motion abnormalities noted. Metabolism/Perfusion There are no defects. There are no perfusion/metabolism defects. Conclusion 1. There is no scan evidence of stress-induced ischemia noted. 2. Left ventricle systolic function is normal. 3. The Ejection Fraction is 65-70%.
--- NOTE | 2018-01-23 05:51 | CP.PCM.PN ---
Subjective - Date & Time of Evaluation Date of Evaluation: 01/22/18 Time of Evaluation: 18:20 - Subjective Subjective: Patient seen and evaluated No cardiac events noted Normal stress test and Normal EF Continue medical management Objective - Vital Signs/Intake and Output Vital Signs (last 24 hours): Temp Pulse Resp BP Pulse Ox 98.2 F 92 H 20 109/72 97 01/23/18 00:00 01/23/18 00:00 01/23/18 00:00 01/23/18 00:00 01/23/18 00:00 Intake and Output: 01/22/18 01/23/18 18:59 06:59 Intake Total 620 650 Balance 620 650 - Medications Medications: Current Medications Acetaminophen (Tylenol 325mg Tab) 650 mg PO Q6 PRN PRN Reason: Pain, Mild (1-3) Last Admin: 01/22/18 22:46 Dose: 650 mg Albuterol/Ipratropium (Duoneb 3 Mg/0.5 Mg (3 Ml) Ud) 3 ml INH Q4H PRN PRN Reason: Shortness of Breath Carvedilol (Coreg) 25 mg PO BID [facility] Last Admin: 01/22/18 18:00 Dose: 25 mg Clopidogrel Bisulfate (Plavix) 75 mg PO DAILY [facility] Last Admin: 01/22/18 10:14 Dose: 75 mg Enoxaparin Sodium (Lovenox) 40 mg SC DAILY [facility] Last Admin: 01/22/18 10:14 Dose: Not Given Gabapentin (Neurontin) 300 mg PO TID [facility] Last Admin: 01/22/18 18:00 Dose: 300 mg Ceftriaxone Sodium (Rocephin Iv 1 Gm Duplex) 50 mls @ 100 mls/hr IVPB DAILY [facility]; Protocol Last Admin: 01/22/18 10:15 Dose: 100 mls/hr Insulin Aspart (Novolog) 0 unit SC ACHS [facility]; Protocol Last Admin: 01/22/18 21:45 Dose: Not Given Insulin Glargine (Lantus) 35 unit SC Q12 [facility] Last Admin: 01/22/18 21:43 Dose: 35 units Lidocaine (Lidoderm) 1 ea TD Q24H [facility] Last Admin: 01/22/18 22:45 Dose: Not Given Losartan Potassium (Cozaar) 25 mg PO DAILY [facility] Last Admin: 01/22/18 10:14 Dose: 25 mg Rosuvastatin Calcium (Crestor) 5 mg PO HS [facility] Last Admin: 01/22/18 21:43 Dose: 5 mg Sennosides (Senokot Tab) 8.6 mg PO DAILY [facility] Last Admin: 01/22/18 10:14 Dose: 8.6 mg Tramadol HCl (Ultram) 50 mg PO Q6 PRN PRN Reason: Pain, moderate (4-7) Last Admin: 01/23/18 00:13 Dose: 50 mg Zolpidem Tartrate (Ambien) 5 mg PO HS PRN PRN Reason: Insomnia Last Admin: 01/22/18 21:47 Dose: 5 mg - Labs Labs: 01/20/18 15:36 01/20/18 15:36
[2018-01-23 06:55] LABS: SQUAMOUS EPITHIAL 1 /hpf (0-5); URINE BILIRUBIN NEGATIVE (NEGATIVE); URINE BLOOD NEGATIVE (NEGATIVE); URINE CLARITY Clear (Clear); URINE COLOR Yellow (YELLOW); URINE GLUCOSE (UA) NORMAL (Normal); URINE LEUKOCYTE ESTERASE NEG Leu/uL (Negative); URINE PROTEIN NEGATIVE (NEGATIVE); URINE UROBILINOGEN NORMAL mg/dL (0.2-1.0)
[2018-01-23 07:25] LABS: BASO # 0.1 K/uL (0.0-0.2); BASO % 1.4 % (0.0-2.0); EOS # 0.2 K/uL (0.0-0.7); EOS % 3.7 % (0.0-4.0); HEMOGLOBIN 14.7 g/dL (12.0-18.0); LYMPH # 1.5 K/uL (1.0-4.3); LYMPH % 22.9 % (20.0-40.0); MEAN CELL VOLUME 99.9 fL (80.0-94.0); MEAN PLATELET VOLUME 9.8 fL (7.2-11.7); MONO # 0.4 K/uL (0.0-0.8); MONO % 5.4 % (0.0-10.0); NEUT # 4.3 K/uL (1.8-7.0); NEUT % 66.6 % (50.0-75.0); RBC 4.33 Mil/uL (4.40-5.90); WHITE BLOOD COUNT 6.5 K/uL (4.8-10.8)
[2018-01-23 08:02] LABS: BLOOD UREA NITROGEN 9 mg/dL (9-20); CALCIUM 8.4 mg/dl (8.6-10.4); GFR NON-AFRICAN AMERICAN > 60
[2018-01-23] MEDS: (Novolog) Insulin Aspart, Recombinant 100 u/ml 10 ml vial SC SCH ×2 (08:05→11:50)
[2018-01-23 08:27] VITALS: BP 125/84; PULSE 93; TEMP 98.6
[2018-01-23 10:28] VITALS: O2SAT 97
[2018-01-23] MEDS: (Lantus) Insulin Glargine, Recombinant SC SCH (10:39)
[2018-01-23] MEDS: Enoxaparin 40 mg Syringe SC SCH (10:40)
[2018-01-23] MEDS: cefTRIAXone IV 1 gm in Dextros 50 ML IVPB SCH (10:46)
--- NOTE | 2018-01-23 10:46 | US ---
PROCEDURE: Date of procedure: 01/21/2018 Procedure: Ultrasound-guided FNA of right supraclavicular lymph node, CPT 43335 Ultrasound guidance for biopsy, [address] Medications: 3cc 1% Lidocaine HISTORY: Enlarged cervical lymph node, lingular cancer. TECHNIQUE: Following informed consent and procedure time-out, limited ultrasound patient's right neck demonstrates a complex cyst cervical lymph node measuring 2.1 centimeter adjacent to the carotid artery. The patient's neck was prepped and draped in the usual sterile fashion. The skin was anesthetized with 1 percent lidocaine. Ultrasound-guided fine needle aspiration was then performed using a 25 gauge needle. A total of 4 passes were made into the lymph node under direct ultrasound guidance. FNA specimens were obtained and sent for routine pathology. A post biopsy ultrasound showed no hematoma IMPRESSION: Ultrasound-guided biopsy of enlarged right neck lymph node.
--- NOTE | 2018-01-23 11:37 | CP.PCM.PN ---
<Jamia Perez - Last Filed: 01/23/18 11:29> Subjective - Date & Time of Evaluation Date of Evaluation: 01/23/18 Time of Evaluation: 11:29 - Subjective Subjective: Cardiology Follow Up Patient was seen and examined at bedside. Patient denied any chest pain, shortness of breath, or palpitations. Objective - Vital Signs/Intake and Output Vital Signs (last 24 hours): Temp Pulse Resp BP Pulse Ox 98.6 F 93 H 20 125/84 97 01/23/18 08:26 01/23/18 08:26 01/23/18 08:26 01/23/18 10:36 01/23/18 09:00 Intake and Output: 01/23/18 01/23/18 06:59 18:59 Intake Total 650 Balance 650 - Medications Medications: Current Medications Acetaminophen (Tylenol 325mg Tab) 650 mg PO Q6 PRN PRN Reason: Pain, Mild (1-3) Last Admin: 01/23/18 10:37 Dose: 650 mg Albuterol/Ipratropium (Duoneb 3 Mg/0.5 Mg (3 Ml) Ud) 3 ml INH Q4H PRN PRN Reason: Shortness of Breath Carvedilol (Coreg) 25 mg PO BID [facility] Last Admin: 01/23/18 10:36 Dose: 25 mg Clopidogrel Bisulfate (Plavix) 75 mg PO DAILY [facility] Last Admin: 01/23/18 10:44 Dose: Not Given Enoxaparin Sodium (Lovenox) 40 mg SC DAILY [facility] Last Admin: 01/23/18 10:40 Dose: Not Given Gabapentin (Neurontin) 300 mg PO TID [facility] Last Admin: 01/23/18 10:36 Dose: 300 mg Ceftriaxone Sodium (Rocephin Iv 1 Gm Duplex) 50 mls @ 100 mls/hr IVPB DAILY [facility]; Protocol Last Admin: 01/23/18 10:46 Dose: 100 mls/hr Insulin Aspart (Novolog) 0 unit SC ACHS [facility]; Protocol Last Admin: 01/23/18 08:05 Dose: Not Given Insulin Glargine (Lantus) 35 unit SC Q12 [facility] Last Admin: 01/23/18 10:39 Dose: Not Given Lidocaine (Lidoderm) 1 ea TD Q24H [facility] Last Admin: 01/22/18 22:45 Dose: Not Given Losartan Potassium (Cozaar) 25 mg PO DAILY [facility] Last Admin: 01/23/18 10:36 Dose: 25 mg Rosuvastatin Calcium (Crestor) 5 mg PO HS [facility] Last Admin: 01/22/18 21:43 Dose: 5 mg Sennosides (Senokot Tab) 8.6 mg PO DAILY [facility] Last Admin: 01/23/18 10:46 Dose: Not Given Tramadol HCl (Ultram) 50 mg PO Q6 PRN PRN Reason: Pain, moderate (4-7) Last Admin: 01/23/18 06:34 Dose: 50 mg Zolpidem Tartrate (Ambien) 5 mg PO HS PRN PRN Reason: Insomnia Last Admin: 01/22/18 21:47 Dose: 5 mg - Labs Labs: 01/23/18 07:09 01/23/18 07:09 - Constitutional Appears: No Acute Distress - Head Exam Head Exam: NORMAL INSPECTION, NORMOCEPHALIC - Eye Exam Eye Exam: EOMI, PERRL Pupil Exam: NORMAL ACCOMODATION - ENT Exam ENT Exam: Mucous Membranes Moist - Respiratory Exam Respiratory Exam: Decreased Breath Sounds, NORMAL BREATHING PATTERN - Cardiovascular Exam Cardiovascular Exam: +S1, +S2. absent: Tachycardia, Murmur - GI/Abdominal Exam GI & Abdominal Exam: Soft, Normal Bowel Sounds. absent: Distended, Tenderness - Extremities Exam Additional comments: bilateral BKA - Neurological Exam Neurological Exam: Alert, Awake, Oriented x3 - Psychiatric Exam Psychiatric exam: Normal Affect, Normal Mood - Skin Skin Exam: Dry, Intact, Normal Color, Warm Assessment and Plan - Assessment and Plan (Free Text) Plan: Neck mass with lymphadenopathy Hx Hypertension, Diabetes, HLD, PVD, Asthma/ COPD, and anxiety Imaging: - CT Neck: multiple enlarged and several necrotic lymph nodes. Recommended biopsy and PET Scan - ECHO: normal LVEF - Stress test: no ischemia noted Management: - Continue with medical management for CAD Case discussed with Jamia Richard DO, PGY2 <Og Lynn - Last Filed: 01/23/18 20:04> Objective - Vital Signs/Intake and Output Vital Signs (last 24 hours): Temp Pulse Resp BP Pulse Ox 98.6 F 93 H 20 125/84 97 01/23/18 08:26 01/23/18 08:26 01/23/18 08:26 01/23/18 10:36 01/23/18 09:00 Intake and Output: 01/23/18 01/24/18 18:59 06:59 Intake Total 550 Balance 550 - Labs Labs: 01/23/18 07:09 01/23/18 07:09 Assessment and Plan - Assessment and Plan (Free Text) Plan: Patient seen and evaluated personally by me. Plan of care d/w the medical resi dent and as documented
--- NOTE | 2018-01-23 14:38 | CP.PCM.PN ---
Subjective - Date & Time of Evaluation Date of Evaluation: 01/23/18 Time of Evaluation: 07:30 - Subjective Subjective: Patient seen and examined at bedside, lying down comfortably. Afebrile and in no acute distress. Denies SOB, cough, fever/chills, chest pain Blood culture 01/20: negative after 48 hours; gram stain pending Follow-up pathology Patient advised to quit smoking PFT performed on 01/23/18. Waiting on official read Objective - Vital Signs/Intake and Output Vital Signs (last 24 hours): Temp Pulse Resp BP Pulse Ox 98.6 F 93 H 20 125/84 97 01/23/18 08:26 01/23/18 08:26 01/23/18 08:26 01/23/18 10:36 01/23/18 09:00 Intake and Output: 01/23/18 01/23/18 06:59 18:59 Intake Total 650 Balance 650 - Medications Medications: Current Medications Acetaminophen (Tylenol 325mg Tab) 650 mg PO Q6 PRN PRN Reason: Pain, Mild (1-3) Last Admin: 01/23/18 10:37 Dose: 650 mg Albuterol/Ipratropium (Duoneb 3 Mg/0.5 Mg (3 Ml) Ud) 3 ml INH Q4H PRN PRN Reason: Shortness of Breath Carvedilol (Coreg) 25 mg PO BID [facility] Last Admin: 01/23/18 10:36 Dose: 25 mg Clopidogrel Bisulfate (Plavix) 75 mg PO DAILY [facility] Last Admin: 01/23/18 10:44 Dose: Not Given Enoxaparin Sodium (Lovenox) 40 mg SC DAILY [facility] Last Admin: 01/23/18 10:40 Dose: Not Given Gabapentin (Neurontin) 300 mg PO TID [facility] Last Admin: 01/23/18 13:58 Dose: 300 mg Ceftriaxone Sodium (Rocephin Iv 1 Gm Duplex) 50 mls @ 100 mls/hr IVPB DAILY [facility]; Protocol Last Admin: 01/23/18 10:46 Dose: 100 mls/hr Insulin Aspart (Novolog) 0 unit SC ACHS [facility]; Protocol Last Admin: 01/23/18 11:50 Dose: Not Given Insulin Glargine (Lantus) 35 unit SC Q12 [facility] Last Admin: 01/23/18 10:39 Dose: Not Given Lidocaine (Lidoderm) 1 ea TD Q24H [facility] Last Admin: 01/22/18 22:45 Dose: Not Given Losartan Potassium (Cozaar) 25 mg PO DAILY [facility] Last Admin: 01/23/18 10:36 Dose: 25 mg Rosuvastatin Calcium (Crestor) 5 mg PO HS [facility] Last Admin: 01/22/18 21:43 Dose: 5 mg Sennosides (Senokot Tab) 8.6 mg PO DAILY [facility] Last Admin: 01/23/18 10:46 Dose: Not Given Tramadol HCl (Ultram) 50 mg PO Q6 PRN PRN Reason: Pain, moderate (4-7) Last Admin: 01/23/18 13:02 Dose: 50 mg Zolpidem Tartrate (Ambien) 5 mg PO HS PRN PRN Reason: Insomnia Last Admin: 01/22/18 21:47 Dose: 5 mg - Labs Labs: 01/23/18 07:09 01/23/18 07:09
--- NOTE | 2018-01-23 23:52 | CP.PCM.DIS ---
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 Routine Comment: Physician Instructions: Reason For Exam: HX OF COPD,ASTHMA Hospital Course - Lab Results Lab Results: Micro Results 01/20/18 20:32 Blood Blood Culture - Preliminary NO GROWTH AFTER 3 DAYS 01/20/18 20:02 Blood Blood Culture - Preliminary NO GROWTH AFTER 3 DAYS Most Recent Lab Values WBC 6.5 K/uL (4.8-10.8) 01/23/18 07:09 RBC 4.33 Mil/uL (4.40-5.90) L 01/23/18 07:09 Hgb 14.7 g/dL (12.0-18.0) 01/23/18 07:09 Hct 43.3 % (35.0-51.0) 01/23/18 07:09 MCV 99.9 fL (80.0-94.0) H 01/23/18 07:09 MCH 34.0 pg (27.0-31.0) H 01/23/18 07:09 MCHC 34.0 g/dL (33.0-37.0) 01/23/18 07:09 RDW 14.0 % (11.5-14.5) 01/23/18 07:09 Plt Count 150 K/uL (130-400) 01/23/18 07:09 MPV 9.8 fL (7.2-11.7) 01/23/18 07:09 Neut % (Auto) 66.6 % (50.0-75.0) 01/23/18 07:09 Lymph % (Auto) 22.9 % (20.0-40.0) 01/23/18 07:09 Wilkinson % (Auto) 5.4 % (0.0-10.0) 01/23/18 07:09 Eos % (Auto) 3.7 % (0.0-4.0) 01/23/18 07:09 Baso % (Auto) 1.4 % (0.0-2.0) 01/23/18 07:09 Neut # (Auto) 4.3 K/uL (1.8-7.0) 01/23/18 07:09 Lymph # (Auto) 1.5 K/uL (1.0-4.3) 01/23/18 07:09 Wilkinson # (Auto) 0.4 K/uL (0.0-0.8) 01/23/18 07:09 Eos # (Auto) 0.2 K/uL (0.0-0.7) 01/23/18 07:09 Baso # (Auto) 0.1 K/uL (0.0-0.2) 01/23/18 07:09 Sodium 135 mmol/L (132-148) 01/23/18 07:09 Potassium 4.2 mmol/L (3.6-5.2) 01/23/18 07:09 Chloride 101 mmol/L (98-107) 01/23/18 07:09 Carbon Dioxide 26 mmol/L (22-30) 01/23/18 07:09 Anion Gap 12 (10-20) 01/23/18 07:09 BUN 9 mg/dL (9-20) 01/23/18 07:09 Creatinine 0.5 mg/dL (0.8-1.5) L 01/23/18 07:09 Est GFR ( Amer) > 60 01/23/18 07:09 Est GFR (Non-Af Amer) > 60 01/23/18 07:09 POC Glucose (mg/dL) 172 mg/dL (65-110) H 01/23/18 11:21 Random Glucose 147 mg/dL (75-110) H 01/23/18 07:09 Calcium 8.4 mg/dl (8.6-10.4) L 01/23/18 07:09 Total Bilirubin 0.4 mg/dL (0.2-1.3) 01/20/18 15:36 AST 31 U/L (17-59) 01/20/18 15:36 ALT 23 U/L (21-72) 01/20/18 15:36 Alkaline Phosphatase 75 U/L (38-126) 01/20/18 15:36 Total Protein 7.4 g/dL (6.3-8.3) 01/20/18 15:36 Albumin 3.8 g/dL (3.5-5.0) 01/20/18 15:36 Globulin 3.7 gm/dL (2.2-3.9) 01/20/18 15:36 Albumin/Globulin Ratio 1.0 (1.0-2.1) 01/20/18 15:36 Urine Color Yellow (YELLOW) 01/23/18 06:45 Urine Clarity Clear (Clear) 01/23/18 06:45 Urine pH 5.0 (5.0-8.0) 01/23/18 06:45 Ur Specific [place] 1.014 (1.003-1.030) 01/23/18 06:45 Urine Protein Negative mg/dL (NEGATIVE) 01/23/18 06:45 Urine Glucose (UA) Normal mg/dL (Normal) 01/23/18 06:45 Urine Ketones Negative mg/dL (NEGATIVE) 01/23/18 06:45 Urine Blood Negative (NEGATIVE) 01/23/18 06:45 Urine Nitrate Negative (NEGATIVE) 01/23/18 06:45 Urine Bilirubin Negative (NEGATIVE) 01/23/18 06:45 Urine Urobilinogen Normal mg/dL (0.2-1.0) 01/23/18 06:45 Ur Leukocyte Esterase Neg Clement/uL (Negative) 01/23/18 06:45 Urine WBC (Auto) 2 /hpf (0-5) 01/23/18 06:45 Urine RBC (Auto) 1 /hpf (0-3) 01/23/18 06:45 Ur Squamous Epith Cells 1 /hpf (0-5) 01/23/18 06:45 Discharge Exam - Head Exam Head Exam: NORMAL INSPECTION, NORMOCEPHALIC Discharge Plan - Follow Up Plan Condition: GOOD Disposition: HOME/ ROUTINE Instructions: Generalized Neck Pain (DC) Referrals: Jagdeep Lee MD [Staff Provider] -
--- NOTE | 2018-01-24 01:41 | PN ---
DATE: 01/23/2018 SUBJECTIVE: Papito Hall is for ENT evaluation. He is status post biopsy of right neck mass. PHYSICAL EXAMINATION: VITAL SIGNS: Blood pressure is 118/76, pulse 79, respiratory rate 20, and temperature 98.7. LUNGS: Clear. ABDOMEN: Soft. ASSESSMENT: 1. Neck mass with lymph node in the right side of the neck, status post biopsy. 2. Chronic obstructive pulmonary disease. 3. Type 2 diabetes. 4. Hypertension. PLAN: Continue current medication. Monitor the patient. Jagdeep Lee MD
--- NOTE | 2018-01-26 11:00 | DS ---
DISCHARGE DIAGNOSES: 1. Rule out head and neck tumor, benign versus malignant. 2. Chronic obstructive pulmonary disease. 3. Hypertension. 4. Type 2 diabetes. 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 Patient came in because of throat pain, neck pain. He was found to have a mass in the throat with lymph node on the right side of the neck. The patient underwent lymph node biopsy of the right side of the neck. The patient is discharged with outpatient followup for the mass. Patient's condition is stable upon discharge. WBC is 6.5, hemoglobin 14.7, hematocrit 43.6, platelets 150. Sodium 135, potassium 4.2, chloride 101, bicarbonate 26, BUN 6.9, creatinine 0.5. Patient's blood pressure 125/84, pulse 93, respiratory rate 20, temperature 98.6. Patient is stable upon discharge. CONDITION UPON DISCHARGE: Stable. Jagdeep Lee MD
--- NOTE | 2018-01-30 12:23 | PQF ---
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 The patient's Clinical Indicators include: NECK BIOPSY PATHOLOGY FINDING LINGUAL SQUAMOUS CELL CA. PLEASE REVIEW AND DOCUMENT PATHOLOGY FINDINGS IF AGREE. Query created by: Gaby Win on 01/27/2018 12:08 PM Electronically signed by: Jagdeep Lee MD 01/30/2018 12:19 PM
== END 2018-01-23 17:06 | disposition home or self-care (01) | DRG 148 ==
LOC: C.ER 12:05 → C.9E 19:51 → C.3T 21:49
PROVIDERS: ADMIT Internal Medicine; ATTEND Internal Medicine
PROC: 07D13ZX Extraction of Right Neck Lymphatic, Percutaneous Approach, Diagnostic (ICD-10-PCS; principal; 2018-01-21)
DX: C02.9 Malignant neoplasm of tongue, unspecified (principal); R22.1 Localized swelling, mass and lump, neck; R59.0 Localized enlarged lymph nodes; I51.7 Cardiomegaly; I11.9 Hypertensive heart disease without heart failure; F17.210 Nicotine dependence, cigarettes, uncomplicated; F12.90 Cannabis use, unspecified, uncomplicated; E78.5 Hyperlipidemia, unspecified; Z79.4 Long term (current) use of insulin; Z89.511 Acquired absence of right leg below knee; Z89.612 Acquired absence of left leg above knee; J44.9 Chronic obstructive pulmonary disease, unspecified; F10.20 Alcohol dependence, uncomplicated; E10.51 Type 1 diabetes mellitus with diabetic peripheral angiopathy without gangrene

== ENCOUNTER 2018-02-10 01:41 | Inpatient (IN) | payer MEDICARE, MEDICAID ==
[2018-02-10 01:42] VITALS: BMI 26.7
[2018-02-10] MEDS ORDERED: Albuterol-Ipratrop 3 mg / 0.5 (3 ml) UD ONE ×2 (01:54→03:31)
[2018-02-10] MEDS ORDERED: Sodium Chloride 0.9% 1,000 ML IV ONE ×2 (02:08→03:30)
[2018-02-10] MEDS ORDERED: cefTRIAXone IV 1 gm in Dextros 50 ML IV ONE (02:09)
[2018-02-10] MEDS ORDERED: Albuterol-Ipratrop 3 mg / 0.5 (3 ml) UD INH STA ×2 (02:09→03:28)
[2018-02-10] MEDS ORDERED: Azithromycin 500 MG in Sodium Chloride 0.9% 250 ML IV STA (02:09)
--- NOTE | 2018-02-10 02:11 | C.PDOC ---
History Of Present Illness 52 year old male with PMHx of COPD presents to the ED BIBA complaining of shortness of breath, wheezing, and coughing for one week. Patient reports smoking one pack of cigarettes per day. States he was diagnosed with a pharyngeal mass on 01/20/18. Reports positive voice changes over the last month. Denies any other complaints. Time Seen by Provider: 02/10/18 02:07 Chief Complaint (Nursing): Shortness Of Breath History Per: Patient History/Exam Limitations: no limitations Onset/Duration Of Symptoms: Days Current Symptoms Are (Timing): Still Present Past Medical History Vital Signs: Last Vital Signs Temp 98.7 F 02/10/18 01:55 Pulse 130 H 02/10/18 01:55 Resp 26 H 02/10/18 01:55 BP 81/61 L 02/10/18 01:55 Pulse Ox 99 02/10/18 01:55 - Medical History PMH: Anxiety, Asthma, COPD, Depression, Diverticulitis, Gastritis, HTN, Hypercholesterolemia Denies: Chronic Kidney Disease - [facility] Procedures (01/20/18) DETACHMENT AT LEFT 2ND TOE, COMPLETE, OPEN APPROACH (05/08/15) DETACHMENT AT LEFT FEMORAL REGION, OPEN APPROACH (07/06/15) DETACHMENT AT LEFT FOOT, PARTIAL 1ST RAY, OPEN APPROACH (06/01/15) DETACHMENT AT LEFT FOOT, PARTIAL 2ND RAY, OPEN APPROACH (06/01/15) DETACHMENT AT LEFT FOOT, PARTIAL 3RD RAY, OPEN APPROACH (06/01/15) DETACHMENT AT LEFT FOOT, PARTIAL 4TH RAY, OPEN APPROACH (06/01/15) DETACHMENT AT LEFT FOOT, PARTIAL 5TH RAY, OPEN APPROACH (06/01/15) DETACHMENT AT RIGHT 5TH TOE, HIGH, OPEN APPROACH (01/15/17) DETACHMENT AT RIGHT LOWER LEG, HIGH, OPEN APPROACH (03/27/17) DILATE R FEM ART W INTRALUM DEV, DRUG BLLN, PERC (01/15/17) DILATION OF L EXT ILIAC ART WITH INTRALUM DEV, PERC APPROACH (06/01/15) DILATION OF L FEM ART WITH INTRALUM DEV, PERC APPROACH (05/08/15) DILATION OF L FOOT ART WITH INTRALUM DEV, PERC APPROACH (05/08/15) EXCISION OF L FOOT SUBCU/FASCIA, OPEN APPROACH (07/06/15) EXCISION OF SIGMOID COLON, OPEN APPROACH (11/16/15) EXTIRPATION OF MATTER FROM L EXT ILIAC ART, PERC APPROACH (06/01/15) EXTIRPATION OF MATTER FROM R FEM ART, PERC APPROACH (01/15/17) FLUOROSCOPY OF R LOW EXTREM ART USING L OSM CONTRAST (03/27/17) FLUOROSCOPY OF SUPERIOR VENA CAVA, GUIDANCE (07/06/15) INSERTION OF INFUSION DEV INTO SUP VENA CAVA, PERC APPROACH (03/27/17) INTRODUCE LOCAL ANESTH IN PERIPH NRV, PLEXI, PERC (11/16/15) INTRODUCE OTH ANTI-INFECT IN CENTRAL VEIN, PERC (03/27/17) INTRODUCE OTH THROMBOLYTIC IN PERIPH VEIN, PERC (06/01/15) REPAIR BLADDER, OPEN APPROACH (11/16/15) ULTRASONOGRAPHY OF SUPERIOR VENA CAVA, GUIDANCE (03/27/17) Family History: States: Unknown Family Hx - Social History Hx Tobacco Use: Yes Hx Alcohol Use: Yes Hx Substance Use: Yes (WEEDS) - Immunization History Hx Tetanus Toxoid Vaccination: No Hx Influenza Vaccination: No Hx Pneumococcal Vaccination: No Physical Exam - Physical Exam Appears: Non-toxic, Other (moderate distress ) Skin: Warm, Dry, No Rash Head: Normacephalic Eye(s): bilateral: Normal Inspection Nose: Normal Oral Mucosa: Moist Neck: Other (mild tenderness and swelling to right neck) Chest: Symmetrical Cardiovascular: Rhythm Regular Respiratory: Rhonchi (scattered ), Wheezing (scattered ) Gastrointestinal/Abdominal: Soft, No Tenderness, Other (obese) Extremity: Other (left AKA, right BKA ) Neurological/Psych: Oriented x3, Normal Speech ED Course And Treatment - Laboratory Results Result Diagrams: 02/10/18 02:55 02/10/18 02:55 Lab Interpretation: Normal (elev glu, lactate neg.) ECG: Interpreted By Mi ECG Rhythm: Atrial Fibrillation ECG Interpretation: Abnormal Rate From EC O2 Sat by Pulse Oximetry: 99 (RA) Pulse Ox Interpretation: Normal - Radiology CXR: Interpreted by Mi CXR Interpretation: Yes: Infiltrates (? small RLL) Progress Note: persistent coughing attacks with apparent upper resp tract irritation. BiPap mask applied with much improvement. probably due to maintaining more open upper airway Reevaluation Time: 04:31 Reassessment Condition: Improved - Physician Consult Information Outcome Of Conversation: 0430: d/w Dr. Lee, PMD, ok to ICU. 0415: d/w Dr. Sanon- ICU, ok to ICU Critical Care Time - Critical Care Note Total Time (in mins): 90 Documented critical care: time excludes all time spent performing seperately billable procedures. Medical Decision Making Medical Decision Making: Plan - CXR - Bloodwork - Cardizem 25mg IVP - IV fluids copd exacerbation ? rll pna rocephin, azithro steroids, nebs pharyngeal mass partially obstructing airway improved with bipap continue same. ENT with Dr. Contreras Rapid AF improved after 2nd bolus Cardizem IV continue cardizem drip dispo: ICU Disposition Doctor Will See Patient In The: Hospital Counseled Patient/Family Regarding: Studies Performed, Diagnosis - Disposition Disposition: HOSPITALIZED Disposition Time: 04:32 Condition: GUARDED - Clinical Impression Clinical Impression: Chr obstructive pulmonary disease w/ acute lower respiratory infxn, Rapid atrial fibrillation, Pharyngeal cancer - Scribe Statement The provider has reviewed the documentation as recorded by the Jaylaibkaren Pittman All medical record entries made by the Jaylaibkaren were at my direction and personally dictated by me. I have reviewed the chart and agree that the record accurately reflects my personal performance of the history, physical exam, medical decision making, and the department course for this patient. I have also personally directed, reviewed, and agree with the discharge instructions and disposition.
[2018-02-10] MEDS ORDERED: cefTRIAXone 1 gm 1 GM/100 ML BAG IVPB ONE (02:24)
[2018-02-10] MEDS ORDERED: Sodium Chloride 0.9% 1,000 ML ONE (02:24)
[2018-02-10] MEDS ORDERED: Azithromycin 500mg/250ML NS 500 MG/250 ML BAG IVPB ONE (02:24)
[2018-02-10 02:41] LABS: VENOUS BLOOD GAS BASE EXCESS -3.5 mmol/L (0.0-2.0); VENOUS BLOOD GAS PCO2 41 mmHg (40-60); VENOUS BLOOD GAS PO2 28 mm/Hg (30-55); VENOUS BLOOD PH 7.34 (7.32-7.43)
[2018-02-10] MEDS ORDERED: MethylPREDNISolone 40 mg Vial ONE (02:57)
[2018-02-10 02:58] LABS: BASO # 0.1 K/uL (0.0-0.2); BASO % 0.7 % (0.0-2.0); EOS # 0.3 K/uL (0.0-0.7); EOS % 2.8 % (0.0-4.0); HEMOGLOBIN 14.3 g/dL (12.0-18.0); LYMPH # 1.1 K/uL (1.0-4.3); LYMPH % 11.8 % (20.0-40.0); MEAN CELL VOLUME 99.1 fL (80.0-94.0); MEAN CORPUSCULAR HEMOGLOBIN 33.7 pg (27.0-31.0); MEAN PLATELET VOLUME 9.4 fL (7.2-11.7); MONO # 0.6 K/uL (0.0-0.8); MONO % 6.4 % (0.0-10.0); NEUT # 7.2 K/uL (1.8-7.0); NEUT % 78.3 % (50.0-75.0); RBC 4.24 Mil/uL (4.40-5.90); RED CELL DISTRIBUTION WIDTH 13.7 % (11.5-14.5); WHITE BLOOD COUNT 9.2 K/uL (4.8-10.8)
[2018-02-10 03:07] LABS: INR 1.1; PROTHROMBIN TIME 12.5 SECONDS (9.7-12.2)
[2018-02-10 03:25] LABS: B-TYPE NATRIURETIC PEPTIDE 438 pg/mL (0-900)
[2018-02-10 03:31] LABS: ALBUMIN 3.5 g/dL (3.5-5.0); ALT/SGPT 19 U/L (21-72); AST/SGOT 17 U/L (17-59); BLOOD UREA NITROGEN 8 mg/dL (9-20); CALCIUM 7.9 mg/dl (8.6-10.4); GFR NON-AFRICAN AMERICAN > 60
[2018-02-10] MEDS: Oxycodone/Acetaminophen 5/325 mg Tab PO PRN ×2 (05:15→11:10)
[2018-02-10] MEDS ORDERED: Dextrose 50% SYRINGE Inj (50 ml) IV PRN (05:15)
[2018-02-10] MEDS ORDERED: Glucagon Recombinant 1 mg Inj IM PRN (05:15)
[2018-02-10] MEDS ORDERED: Iodixanol 320 mg/ml 150 ml Bottle IV ONE (05:25)
--- NOTE | 2018-02-10 07:16 | CP.PCM.CON ---
History of Present Illness - History of Present Illness History of Present Illness: Patient is a 52 year old male with a PMHx of hypertension, diabetes, HLD, PVD, asthma/COPD, and anxiety with recent diagnosis of Sq cell laryngeal cancer, had been seen by Dr. Wu and plan to start chemo. Patient presented for dry cough x3 days with sob. In ER lot of wheezing and suspected stridor, which improved with bipap, steroid and nebs. Patient was also in tachycardia with rhythm ranging from sinus, MAT to PAC's. Patient continues to smoke and drink as below. He was started on cardizem drip to control hr. CTA, neck, head and abd/pelvis with iv contrast ordered, on my review no PE, mild bronchitis, again mass underneath epiglottis noticed with ? epiglottis involvement. Pending radiology reading. 12 system ROS reviewed and otherwise negative except mentioned in HPI. PMD: Dr. Lee PMHx: Hypertension, DM-2, HLD, PVD, asthma/COPD, anxiety PSHx: Bilateral BKA, R SFA stenting (01/2017), Left AKA (07/2015), Ex Lap LAR, bowel resection, repair of colovesicular fistula (11/2015), Fem-Fem bypass (2011) All: NKDA Social Hx: smokes 1.5 ppd for 43 years, 1 pint of vodka daily, occasional marijuana use Family Hx: Unremarkable Review of Systems - Review of Systems All systems: reviewed and no additional remarkable complaints except (HPI) Past Patient History - Infectious Disease Hx of Infectious Diseases: None - Past Medical History & Family History Past Medical History?: Yes - Past Social History Smoking Status: Heavy Smoker > 10 Cigarettes Daily Alcohol: > 2 Drinks/Day (1 pint of vodka daily) Drugs: Cannabis Home Situation {Lives}: With Family - CARDIAC Hx Hypercholesterolemia: Yes Hx Hypertension: Yes - PULMONARY Hx Asthma: Yes Hx Chronic Obstructive Pulmonary Disease (COPD): Yes - NEUROLOGICAL Hx Neurological Disorder: No - HEENT Hx HEENT Problems: No - RENAL Hx Chronic Kidney Disease: No - ENDOCRINE/METABOLIC Hx Diabetes Mellitus Type 1: Yes - HEMATOLOGICAL/ONCOLOGICAL Hx Blood Disorders: No - INTEGUMENTARY Hx Dermatological Problems: Yes Other/Comment: PT HAS BROWN SPOTS ON ARMS AND BACK STATES HE HAS SKIN DOCTER AP POINTMENT IN ,C/O ITCHNESS WITH THESE SPOTS. - MUSCULOSKELETAL/RHEUMATOLOGICAL Hx Falls: No - GASTROINTESTINAL Hx Diverticulitis: Yes Hx Gastritis: Yes - GENITOURINARY/GYNECOLOGICAL Hx Genitourinary Disorders: Yes Hx Urinary Tract Infection: Yes Other/Comment: PT STATES HE HAS BROWN URINE AND SOME FECAL MATERIAL IN HIS URINE. - PSYCHIATRIC Hx Anxiety: Yes Hx Depression: Yes Hx Substance Use: Yes (WEEDS) - SURGICAL HISTORY Hx Surgeries: Yes Hx Amputation: Yes (LEFT aKA R BKA) Hx Angiogram: Yes Hx Cardiac Catheterization: Yes Hx Femoral-Popliteal Bypass Graft: Yes (X 3) Hx Vascular Surgery: Yes Other/Comment: Vascular bypass surgery femoral bilateral 2011,LT. BELOW KNEE AMPUTATION, right 5th toe amputation - ANESTHESIA Hx Anesthesia: Yes Hx Anesthesia Reactions: No Hx Malignant Hyperthermia: No Meds Allergies/Adverse Reactions: Allergies Allergy/AdvReac Type Severity Reaction Status Date / Time No Known Allergies Allergy Verified 02/10/18 02:02 - Medications Medications: Current Medications Albuterol/Ipratropium (Duoneb 3 Mg/0.5 Mg (3 Ml) Ud) 3 ml INH RQ4 PRN PRN Reason: Wheezing Budesonide (Pulmicort Respules) 0.5 mg INH RQ12 [facility] Carvedilol (Coreg) 25 mg PO BID [facility] Chlordiazepoxide (Librium) 25 mg PO Q8 [facility] Clopidogrel Bisulfate (Plavix) 75 mg PO DAILY [facility] Dextrose (Dextrose 50% Inj) 0 ml IV STAT PRN; Protocol PRN Reason: Hypoglycemia Protocol Dextrose (Glutose 15) 0 gm PO ONCE PRN; Protocol PRN Reason: Hypoglycemia Protocol Enoxaparin Sodium (Lovenox) 40 mg SC DAILY [facility] Folic Acid (Folic Acid) 1 mg PO DAILY [facility] Gabapentin (Neurontin) 300 mg PO TID [facility] Glucagon (Glucagen Diagnostic Kit) 0 mg IM STAT PRN; Protocol PRN Reason: Hypoglycemia Protocol Diltiazem HCl 125 mg/ Sodium (Chloride) 125 mls @ 10 mls/hr IV .[id number] [facility]; Protocol Dextrose (Dextrose 5% In Water 1000 Ml) 1,000 mls @ 0 mls/hr IV .Q0M PRN; Protocol PRN Reason: Hypoglycemia Protocol Insulin Aspart (Novolog) 0 unit SC ACHS [facility]; Protocol Insulin Glargine (Lantus) 18 unit SC Q12 [facility] Multivitamins/Vitamin C (Multi-Delyn Liquid) 5 ml PO DAILY [facility] Oxycodone/Acetaminophen (Percocet 5/325 Mg Tab) 1 tab PO Q6H PRN PRN Reason: Pain, moderate (4-7) Stop: 02/13/18 05:01 Last Admin: 02/10/18 05:15 Dose: 1 tab Rosuvastatin Calcium (Crestor) 5 mg PO HS [facility] Thiamine HCl (Vitamin B1 Tab) 100 mg PO DAILY [facility] Physical Exam - Additional Findings Additional findings: * HEENT TAE, * Neck mild tenderness on the biopsy site * Chest air entry b/l equal. * CVS irregular, with PAC * PA soft * Ext left AKA, right bka * skin normal turgor * [employer] awake orientedx3 * Results - Vital Signs Recent Vital Signs: Last Vital Signs Temp 98.7 F 02/10/18 01:55 Pulse 107 H 02/10/18 05:04 Resp 16 02/10/18 05:04 BP 102/75 02/10/18 05:04 Pulse Ox 99 02/10/18 05:42 - Labs Result Diagrams: 02/10/18 02:55 02/10/18 02:55 Labs: Laboratory Results - last 24 hr 02/10/18 02/10/18 02/10/18 02:35 02:55 02:55 WBC 9.2 RBC 4.24 L Hgb 14.3 Hct 42.0 MCV 99.1 H MCH 33.7 H MCHC 34.0 RDW 13.7 Plt Count 153 MPV 9.4 Neut % (Auto) 78.3 H Lymph % (Auto) 11.8 L [place] % (Auto) 6.4 Eos % (Auto) 2.8 Baso % (Auto) 0.7 Neut # (Auto) 7.2 H Lymph # (Auto) 1.1 [place] # (Auto) 0.6 Eos # (Auto) 0.3 Baso # (Auto) 0.1 PT 12.5 H INR 1.1 APTT 33 pO2 28 L VBG pH 7.34 VBG pCO2 41 VBG HCO3 20.9 VBG Total CO2 23.4 VBG O2 Sat (Calc) 59.7 VBG Base Excess -3.5 L VBG Potassium 2.9 L Sodium 141.0 Chloride 109.0 H Glucose 155 H Lactate 1.6 Potassium Carbon Dioxide Anion Gap BUN Creatinine Est GFR ( Amer) Est GFR (Non-Af Amer) POC Glucose (mg/dL) Random Glucose Calcium Total Bilirubin AST ALT Alkaline Phosphatase Troponin I NT-Pro-B Natriuret Pep Total Protein Albumin Globulin Albumin/Globulin Ratio Venous Blood Potassium 2.9 L 02/10/18 02/10/18 02:55 05:29 WBC RBC Hgb Hct MCV MCH MCHC RDW Plt Count MPV Neut % (Auto) Lymph % (Auto) [place] % (Auto) Eos % (Auto) Baso % (Auto) Neut # (Auto) Lymph # (Auto) [place] # (Auto) Eos # (Auto) Baso # (Auto) PT INR APTT pO2 VBG pH VBG pCO2 VBG HCO3 VBG Total CO2 VBG O2 Sat (Calc) VBG Base Excess VBG Potassium Sodium 137 Chloride 102 Glucose Lactate Potassium 3.6 Carbon Dioxide 26 Anion Gap 12 BUN 8 L Creatinine 0.4 L Est GFR ( Amer) > 60 Est GFR (Non-Af Amer) > 60 POC Glucose (mg/dL) 221 H Random Glucose 199 H D Calcium 7.9 L Total Bilirubin 0.5 AST 17 D ALT 19 L Alkaline Phosphatase 100 Troponin I < 0.0120 NT-Pro-B Natriuret Pep 438 Total Protein 6.9 Albumin 3.5 Globulin 3.4 Albumin/Globulin Ratio 1.0 Venous Blood Potassium Assessment & Plan - Assessment and Plan (Free Text) Assessment: * COPD exacerbation, exacerbated by cough due to the irritation of the tumor, air way appears patent on CT * Uncontrolled type 2 dm * Tachycardia with multiple pac, mat * Active tobacco abuse * Active alcohol abuse * Active marijuana abuse * Sq cell laryngeal cancer * PVD with b/l amputations * See orders Plan: * f/u MURRY CT * Nebs, inhaled steroid low dose systemic steroids * Doxycycline * Diltiazem to control HR while breathing improve with the above * Home meds * Accuchecks * Sliding scale , lantus * librium, thiamine,mvt, FA * counselled about substance abuse.
[2018-02-10] MEDS: Albuterol-Ipratrop 3 mg / 0.5 (3 ml) UD INH PRN ×2 (08:00→13:45)
[2018-02-10] MEDS: Budesonide 0.5 mg/2 ml Inhal Susp UD INH SCH ×2 (08:00→21:10)
[2018-02-10] MEDS: (Novolog) Insulin Aspart, Recombinant 100 u/ml 10 ml vial SC SCH ×4 (08:30→22:21)
[2018-02-10] MEDS: Multiple Vitamins Tab PO SCH (09:09)
[2018-02-10] MEDS: Enoxaparin 40 mg Syringe SC SCH ×2 (09:10)
--- NOTE | 2018-02-10 09:42 | CT ---
Date of service: 02/10/2018 PROCEDURE: CT HEAD WITHOUT CONTRAST. HISTORY: sob, lingual sq cell ca COMPARISON: None available. TECHNIQUE: Axial computed tomography images were obtained through the head/brain without intravenous contrast. Radiation dose: Total exam DLP = 1114.66 mGy-cm. This CT exam was performed using one or more of the following dose reduction techniques: Automated exposure control, adjustment of the mA and/or kV according to patient size, and/or use of iterative reconstruction technique. FINDINGS: Mild streak artifact limits evaluation of the skull base. HEMORRHAGE: No intracranial hemorrhage. BRAIN: No mass effect or edema. Intracranial atherosclerosis. The mccurdy-white matter differentiation appears intact. Please note that MRI with diffusion imaging is more sensitive in the detection of acute ischemic event. VENTRICLES: No hydrocephalus. CALVARIUM: Unremarkable. PARANASAL SINUSES: Unremarkable as visualized. No significant inflammatory changes. MASTOID AIR CELLS: Mucosal polyp or retention cysts within the right frontal sinus. Mild mucosal thickening of the ethmoid air cells. OTHER FINDINGS: None. IMPRESSION: No acute intracranial pathology identified. Incidental findings as above. Preliminary impression was provided by [employer]
[2018-02-10] MEDS ORDERED: (Lantus) Insulin Glargine, Recombinant SC SCH ×3 (10:00→17:00)
--- NOTE | 2018-02-10 10:22 | RAD ---
HISTORY: SOB COMPARISON: Chest x-ray performed 01/21/18 TECHNIQUE: Chest, one view. FINDINGS: Examination limited by habitus. LUNGS: Mild right basilar atelectasis/infiltrate. Please note that chest x-ray has limited sensitivity for the detection of pulmonary masses. PLEURA: No significant pleural effusion identified. No definite pneumothorax . CARDIOVASCULAR: Heart size appears top normal. Atherosclerotic calcification present. OSSEOUS STRUCTURES: No acute osseous abnormality identified. VISUALIZED UPPER ABDOMEN: Unremarkable. OTHER FINDINGS: None. IMPRESSION: Mild right basilar atelectasis/infiltrate.
[2018-02-10] MEDS ORDERED: Oxycodone/Acetaminophen 5/325 mg Tab PO PRN ×2 (10:26→18:29)
--- NOTE | 2018-02-10 11:23 | CT ---
Date of service: 02/10/2018 PROCEDURE: CT Abdomen and Pelvis with contrast HISTORY: sob, lingual sq cell ca COMPARISON: CT abdomen and pelvis with IV contrast performed 07/26/16 TECHNIQUE: Contrast dose: 100 mL Visipaque 320 IV Radiation dose: Total exam DLP = 1204.69 mGy-cm. This CT exam was performed using one or more of the following dose reduction techniques: Automated exposure control, adjustment of the mA and/or kV according to patient size, and/or use of iterative reconstruction technique. FINDINGS: LOWER THORAX: Mild bibasilar infiltrates/atelectasis. Mild scattered ground-glass pulmonary opacities bilateral lower lobes. No visible pleural effusion or pneumothorax. LIVER: Hepatomegaly. Hypoattenuation of the liver compatible with hepatic steatosis. Punctate calcifications, likely granulomas. GALLBLADDER AND BILE DUCTS: Unremarkable. PANCREAS: Unremarkable. SPLEEN: 4 mm probable splenule. Otherwise unremarkable. ADRENALS: Mild bilateral adrenal gland hypertrophy. KIDNEYS AND URETERS: The kidneys enhance symmetrically. No hydronephrosis or obstructing calculus identified. VASCULATURE: No aortic aneurysm. Dense atherosclerotic calcifications of the aorta and branches. Fem-fem bypass graft. BOWEL: Stomach is nondistended. Lack of oral contrast limits evaluation for bowel pathology. Bowel loops appear within normal limits of caliber without evidence of obstruction. APPENDIX: The appendix appears within normal limits of caliber. No secondary signs of acute appendicitis. PERITONEUM: No significant free fluid. No definite free air. LYMPH NODES: Sub cm mesenteric lymph nodes, nonspecific. BLADDER: Unremarkable. REPRODUCTIVE: Unremarkable. BONES: Mild degenerative changes. OTHER FINDINGS: Bilateral gynecomastia. IMPRESSION: Lung bases: Mild bibasilar infiltrates/atelectasis; mild scattered ground-glass pulmonary opacities bilateral lower lobes. Hepatomegaly. Hepatic steatosis. Probable hepatic calcified granulomas. Additional findings as above. Preliminary impression was provided by [employer].
--- NOTE | 2018-02-10 11:33 | CT ---
Date of service: 02/10/2018 CTA chest PE protocol Indication: sob, lingual sq cell ca Technique: Contiguous axial images were obtained through the chest with intravenous contrast enhancement. Sagittal and coronal reconstructions were generated and reviewed. This CT exam was performed using 1 or more of the following dose reduction techniques: Automated exposure control, adjustment of the MAA and/or kV according to patient size, and/or use of iterative reconstruction technique. IV contrast: 100 mL Visipaque 320 IV Radiation dose (DLP): 618.57 MGy-cm. Comparison: Chest x-ray performed 02/10/18 Findings: Visualized portions of the inferior thyroid gland appear unremarkable. The mediastinal and hilar vascular structures appear within normal limits. The heart appears within normal limits of size. Atherosclerotic calcifications/mural plaque involving the visualized aorta. Prevascular lymph nodes measuring up to 12 mm in short axis. No large central or segmental pulmonary embolus evident. Mild bibasilar atelectasis/infiltrates. Mild scattered mid to lower lung zone ground-glass infiltrates. No pleural effusion. No pneumothorax. Fluid within the distal esophagus may be related to gastroesophageal reflux. Limited visualization of the upper abdomen reveals hepatomegaly. Hepatic steatosis. Bilateral adrenal gland hypertrophy. Degenerative changes. Impression: No large central or segmental pulmonary embolus evident. Mild bibasilar atelectasis/infiltrates. Mild scattered mid to lower lung zone ground-glass infiltrates. Fluid within the distal esophagus may be related to gastroesophageal reflux. Limited visualization of the upper abdomen reveals hepatomegaly. Hepatic steatosis. Bilateral adrenal gland hypertrophy. Preliminary impression was provided by [employer].
[2018-02-10] MEDS ORDERED: Verapamil 240 mg ER Tab PO SCH (12:00)
[2018-02-10 12:01] LABS: BASO % 0.1 % (0.0-2.0); HEMOGLOBIN 12.5 g/dL (12.0-18.0); LYMPH # 0.3 K/uL (1.0-4.3); LYMPH % 2.8 % (20.0-40.0); MEAN CELL VOLUME 99.6 fL (80.0-94.0); MEAN CORPUSCULAR HEMOGLOBIN 32.7 pg (27.0-31.0); MEAN CORPUSCULAR HGB CONC 32.9 g/dL (33.0-37.0); MEAN PLATELET VOLUME 9.5 fL (7.2-11.7); MONO # 0.2 K/uL (0.0-0.8); MONO % 1.6 % (0.0-10.0); NEUT # 10.1 K/uL (1.8-7.0); NEUT % 95.5 % (50.0-75.0); PLATELET COUNT 156 K/uL (130-400); RBC 3.83 Mil/uL (4.40-5.90); RED CELL DISTRIBUTION WIDTH 14.1 % (11.5-14.5); WHITE BLOOD COUNT 10.6 K/uL (4.8-10.8)
[2018-02-10 12:28] LABS: LYMPHOCYTE 3 % (20-40); MONOCYTE 2 % (0-10); NEUTROPHIL 95 % (50-75); PLATELET ESTIMATE NORMAL (NORMAL); TOTAL CELLS COUNTED 100
[2018-02-10 12:29] LABS: ANISOCYTOSIS SLIGHT; LARGE PLATELETS PRESENT
[2018-02-10 12:41] LABS: ALBUMIN 3.2 g/dL (3.5-5.0); ALT/SGPT 10 U/L (21-72); AST/SGOT 16 U/L (17-59); BLOOD UREA NITROGEN 11 mg/dL (9-20); CALCIUM 7.7 mg/dl (8.6-10.4); GFR NON-AFRICAN AMERICAN > 60
[2018-02-10 12:44] LABS: B-TYPE NATRIURETIC PEPTIDE 598 pg/mL (0-900)
[2018-02-10] MEDS: MethylPREDNISolone 40 mg Vial IVP SCH ×2 (13:00→17:52)
[2018-02-10 19:23] LABS: CK-MB 1.33 ng/mL (0.0-3.38)
[2018-02-10] MEDS ORDERED: Naloxone 0.4 mg/ml Inj (Adult) IVP ONE ×2 (19:36→20:01)
[2018-02-10] MEDS ORDERED: DOPamine 400mg/250ml D5W 400 MG/250 ML BAG IV ONE (19:41)
[2018-02-10] MEDS ORDERED: Naloxone 0.4 mg/ml Inj (Adult) ONE ×2 (19:43→19:48)
[2018-02-10] MEDS ORDERED: Flumazenil 0.1 mg/ml Inj (5ml) IVP ONE (19:46)
[2018-02-10 19:49] LABS: ARTERIAL BLOOD GAS HEMOGLOBIN 11.7 g/dL (11.7-17.4); ARTERIAL BLOOD GAS O2 SAT 97.4 % (95-98); ARTERIAL BLOOD GAS PCO2 29 mm/Hg (35-45); ARTERIAL BLOOD GAS PH 7.14 (7.35-7.45); ARTERIAL BLOOD GAS PO2 99 mm/Hg (80-100); ARTERIAL BLOOD GAS TCO2 10.8 mmol/L (22-28)
[2018-02-10] MEDS ORDERED: DEXTROSE IV SCH (20:00)
[2018-02-10] MEDS ORDERED: SODIUM BICARBONATE IV SCH (20:00)
[2018-02-10] MEDS ORDERED: WATER IV SCH (20:00)
[2018-02-10 20:55] LABS: ALT/SGPT 45 U/L (21-72); AST/SGOT 88 U/L (17-59); BLOOD UREA NITROGEN 17 mg/dL (9-20); CALCIUM 7.5 mg/dl (8.6-10.4); GFR NON-AFRICAN AMERICAN > 60
[2018-02-10] MEDS: Albuterol-Ipratrop 3 mg / 0.5 (3 ml) UD INH SCH ×2 (21:10)
[2018-02-10] MEDS ORDERED: Calcium Gluconate 4.65 mEq/10 ml Inj IVP ONE ×2 (21:15→21:30)
[2018-02-10] MEDS ORDERED: Glucagon Recombinant 1 mg Inj IV STA (21:15)
[2018-02-10] MEDS ORDERED: Glucagon Recombinant 1 mg Inj IV ONE (21:30)
[2018-02-10 22:22] LABS: BASO % 0.3 % (0.0-2.0); EOS % 0.2 % (0.0-4.0); HEMOGLOBIN 12.8 g/dL (12.0-18.0); LYMPH # 0.7 K/uL (1.0-4.3); LYMPH % 4.9 % (20.0-40.0); MEAN CELL VOLUME 100.4 fL (80.0-94.0); MEAN CORPUSCULAR HEMOGLOBIN 32.3 pg (27.0-31.0); MEAN CORPUSCULAR HGB CONC 32.2 g/dL (33.0-37.0); MEAN PLATELET VOLUME 9.9 fL (7.2-11.7); MONO # 0.4 K/uL (0.0-0.8); MONO % 2.7 % (0.0-10.0); NEUT # 13.7 K/uL (1.8-7.0); NEUT % 91.9 % (50.0-75.0); PLATELET COUNT 159 K/uL (130-400); RBC 3.96 Mil/uL (4.40-5.90); RED CELL DISTRIBUTION WIDTH 13.9 % (11.5-14.5); WHITE BLOOD COUNT 14.9 K/uL (4.8-10.8)
[2018-02-10 22:53] LABS: LYMPHOCYTE 4 % (20-40); MONOCYTE 2 % (0-10); NEUTROPHIL 94 % (50-75); PLATELET ESTIMATE NORMAL (NORMAL); TOTAL CELLS COUNTED 100
[2018-02-11] MEDS: MethylPREDNISolone 40 mg Vial IVP SCH ×4 (00:32→17:42)
--- NOTE | 2018-02-11 03:22 | CP.PCM.PN ---
Subjective - Date & Time of Evaluation Date of Evaluation: 02/11/18 Time of Evaluation: 03:20 - Subjective Subjective: Hypotension and lactic acidosis likely fom newer CCB, verapamil, initial response with glucagon and calcium gluconate, with improvement in BP and HR, currently also on cardizem, patient was alert and oriented since 8:30 pm last night. See orders for detail. Objective - Vital Signs/Intake and Output Vital Signs (last 24 hours): Temp Pulse Resp BP Pulse Ox 97.7 F 76 19 126/71 93 L 02/11/18 00:00 02/11/18 02:30 02/11/18 02:30 02/11/18 02:11 02/11/18 02:30 Intake and Output: 02/10/18 02/11/18 18:59 06:59 Intake Total 750 766.9 Output Total 901 1 Balance -151 765.9 - Medications Medications: Current Medications Acetaminophen (Tylenol 325mg Tab) 650 mg PO ONCE PRN PRN Reason: Pain, Mild (1-3) Albuterol/Ipratropium (Duoneb 3 Mg/0.5 Mg (3 Ml) Ud) 3 ml INH RQ6 [facility] Last Admin: 02/10/18 21:10 Dose: 3 ml Budesonide (Pulmicort Respules) 0.5 mg INH RQ12 [facility] Last Admin: 02/10/18 21:10 Dose: Not Given Clopidogrel Bisulfate (Plavix) 75 mg PO DAILY [facility] Last Admin: 02/10/18 09:09 Dose: 75 mg Dextrose (Dextrose 50% Inj) 0 ml IV STAT PRN; Protocol PRN Reason: Hypoglycemia Protocol Dextrose (Glutose 15) 0 gm PO ONCE PRN; Protocol PRN Reason: Hypoglycemia Protocol Enoxaparin Sodium (Lovenox) 40 mg SC DAILY [facility] Last Admin: 02/10/18 09:10 Dose: Not Given Folic Acid (Folic Acid) 1 mg PO DAILY [facility] Last Admin: 02/10/18 09:09 Dose: 1 mg Glucagon (Glucagen Diagnostic Kit) 0 mg IM STAT PRN; Protocol PRN Reason: Hypoglycemia Protocol Dextrose (Dextrose 5% In Water 1000 Ml) 1,000 mls @ 0 mls/hr IV .Q0M PRN; Protocol PRN Reason: Hypoglycemia Protocol Sodium Bicarbonate 150 ml/ (Dextrose) 1,000 mls @ 75 mls/hr IV .[id number] [facility] Last Admin: 02/10/18 21:37 Dose: 75 mls/hr Doxycycline Hyclate 100 mg/ (Sodium Chloride) 100 mls @ 100 mls/hr IVPB Q12H [facility]; Protocol Last Admin: 02/10/18 21:45 Dose: 100 mls/hr Ceftriaxone Sodium 1 gm/ (Sodium Chloride) 100 mls @ 100 mls/hr IVPB DAILY [facility]; Protocol Insulin Aspart (Novolog) 0 unit SC ACHS [facility]; Protocol Last Admin: 02/10/18 22:21 Dose: Not Given Insulin Glargine (Lantus) 30 unit SC DAILY [facility] Methylprednisolone (Solu-Medrol) 40 mg IVP Q6 [facility] Last Admin: 02/11/18 00:32 Dose: 40 mg Multivitamins (Hexavitamin) 1 tab PO DAILY [facility] Last Admin: 02/10/18 09:09 Dose: 1 tab Oseltamivir Phosphate (Tamiflu Cap) 75 mg PO BID [facility]; Protocol Stop: 02/15/18 11:01 Last Admin: 02/10/18 17:51 Dose: 75 mg Rosuvastatin Calcium (Crestor) 5 mg PO HS [facility] Last Admin: 02/10/18 22:20 Dose: Not Given Thiamine HCl (Vitamin B1 Tab) 100 mg PO DAILY [facility] Last Admin: 02/10/18 09:10 Dose: 100 mg - Labs Labs: 02/10/18 22:13 02/10/18 20:36 PT 12.5 SECONDS (9.7-12.2) H 02/10/18 02:55 INR 1.1 02/10/18 02:55 APTT 33 SECONDS (21-34) 02/10/18 02:55
[2018-02-11] MEDS: Albuterol-Ipratrop 3 mg / 0.5 (3 ml) UD INH SCH ×4 (03:56→19:27)
[2018-02-11 05:43] LABS: ARTERIAL BLOOD GAS HCO3 28.2 mmol/L (21-28); ARTERIAL BLOOD GAS O2 SAT 97.8 % (95-98); ARTERIAL BLOOD GAS PCO2 40 mm/Hg (35-45); ARTERIAL BLOOD GAS PH 7.46 (7.35-7.45); ARTERIAL BLOOD GAS PO2 84 mm/Hg (80-100); ARTERIAL BLOOD GAS TCO2 29.6 mmol/L (22-28)
[2018-02-11 06:01] LABS: BASO % 0.3 % (0.0-2.0); HEMOGLOBIN 12.3 g/dL (12.0-18.0); LYMPH # 0.5 K/uL (1.0-4.3); LYMPH % 3.6 % (20.0-40.0); MEAN CELL VOLUME 97.8 fL (80.0-94.0); MEAN CORPUSCULAR HEMOGLOBIN 33.2 pg (27.0-31.0); MEAN PLATELET VOLUME 9.6 fL (7.2-11.7); MONO # 0.4 K/uL (0.0-0.8); MONO % 2.7 % (0.0-10.0); NEUT # 13.4 K/uL (1.8-7.0); NEUT % 93.4 % (50.0-75.0); PLATELET COUNT 142 K/uL (130-400); RED CELL DISTRIBUTION WIDTH 13.9 % (11.5-14.5); WHITE BLOOD COUNT 14.3 K/uL (4.8-10.8)
[2018-02-11 06:47] LABS: ALBUMIN 3.2 g/dL (3.5-5.0); ALT/SGPT 125 U/L (21-72); AST/SGOT 240 U/L (17-59); BLOOD UREA NITROGEN 22 mg/dL (9-20); GFR NON-AFRICAN AMERICAN > 60
[2018-02-11] MEDS: Budesonide 0.5 mg/2 ml Inhal Susp UD INH SCH ×2 (07:03→19:27)
[2018-02-11] MEDS: Albuterol-Ipratrop 3 mg / 0.5 (3 ml) UD INH PRN (07:04)
[2018-02-11] MEDS: (Novolog) Insulin Aspart, Recombinant 100 u/ml 10 ml vial SC SCH ×4 (07:39→22:46)
[2018-02-11 08:32] LABS: BANDS 3 % (0-2); LYMPHOCYTE 3 % (20-40); MONOCYTE 1 % (0-10); NEUTROPHIL 93 % (50-75); PLATELET ESTIMATE NORMAL (NORMAL); TOTAL CELLS COUNTED 100
[2018-02-11] MEDS: Enoxaparin 40 mg Syringe SC SCH ×2 (09:28→09:37)
[2018-02-11] MEDS: Multiple Vitamins Tab PO SCH (09:28)
[2018-02-11] MEDS: (Lantus) Insulin Glargine, Recombinant SC SCH ×2 (09:32→09:38)
--- NOTE | 2018-02-11 10:40 | RAD ---
Date of service: 02/10/2018 HISTORY: et tube COMPARISON: Portable chest 02/10/2018. FINDINGS: LUNGS: Trace linear atelectasis right costophrenic sulcus with remaining lung goldstein clear and otherwise stable. PLEURA: No significant pleural effusion identified, no pneumothorax apparent. CARDIOVASCULAR: No aortic atherosclerotic calcification present. Normal cardiac size. No pulmonary vascular congestion. OSSEOUS STRUCTURES: No significant abnormalities. VISUALIZED UPPER ABDOMEN: Normal. OTHER FINDINGS: None. IMPRESSION: Linear atelectasis right costophrenic sulcus with remaining lung goldstein clear. No interval pulmonary vascular congestion appreciable.
--- NOTE | 2018-02-11 12:57 | CP.CCUPN ---
<Quan Blair S - Last Filed: 02/11/18 18:54> CCU Objective - Vital Signs / Intake & Output Vital Signs (Last 4 hours): Vital Signs Temp Pulse Resp BP Pulse Ox 02/11/18 16:00 98.6 F 82 18 139/81 100 02/11/18 15:00 92 H 19 135/80 99 Intake and Output (Last 8hrs): Intake & Output 02/11/18 02/11/18 02/11/18 06:59 14:59 22:59 Intake Total 689.5 470 50 Output Total 300 Balance 389.5 470 50 Weight 183 lb Intake: Intake, IV Amount 689.5 Left Antecubital 600 Left Wrist 89.5 Oral 470 50 Output: Urine 300 Urine, Voided 300 Other: # Bowel Movements 1 1 - Medications Active Medications: Active Medications Generic Name Dose Route Start Last Admin Trade Name Freq PRN Reason Stop Dose Admin Acetaminophen 650 mg 02/10/18 13:48 02/11/18 09:40 Tylenol 325mg Tab PO 650 mg ONCE PRN Administration Pain, Mild (1-3) Albuterol/Ipratropium 3 ml 02/10/18 17:00 02/11/18 07:03 Duoneb 3 Mg/0.5 Mg (3 Ml) Ud INH 3 ml RQ6 MARCELL Administration Budesonide 0.5 mg 02/10/18 08:00 02/11/18 07:03 Pulmicort Respules INH 0.5 mg RQ12 MARCELL Administration Clopidogrel Bisulfate 75 mg 02/10/18 10:00 02/11/18 09:34 Plavix PO 75 mg DAILY MARCELL Administration Dextrose 0 ml 02/10/18 05:15 Dextrose 50% Inj IV STAT PRN Hypoglycemia Protocol Protocol Dextrose 0 gm 02/10/18 05:15 Glutose 15 PO ONCE PRN Hypoglycemia Protocol Protocol Enoxaparin Sodium 40 mg 02/10/18 10:00 02/11/18 09:37 Lovenox SC Not Given DAILY MARCELL Folic Acid 1 mg 02/10/18 10:00 02/11/18 09:28 Folic Acid PO 1 mg DAILY MARCELL Administration Glucagon 0 mg 02/10/18 05:15 Glucagen Diagnostic Kit IM STAT PRN Hypoglycemia Protocol Protocol Dextrose 1,000 mls @ 0 mls/hr 02/10/18 05:15 Dextrose 5% In Water 1000 Ml IV .Q0M PRN Hypoglycemia Protocol Protocol Per Protocol Doxycycline Hyclate 100 mg/ 100 mls @ 100 mls/hr 02/10/18 21:00 02/11/18 09:29 Sodium Chloride IVPB 100 mls/hr Q12H MARCELL Administration Protocol Ceftriaxone Sodium 1 gm/ 100 mls @ 100 mls/hr 02/11/18 10:00 02/11/18 09:29 Sodium Chloride IVPB 100 mls/hr DAILY MARCELL Administration Protocol Insulin Aspart 0 unit 02/10/18 07:30 02/11/18 16:39 Novolog SC Not Given ACHS MARCELL Protocol Insulin Glargine 30 unit 02/11/18 10:00 02/11/18 09:38 Lantus SC Not Given DAILY MARCELL Methylprednisolone 40 mg 02/10/18 12:00 02/11/18 17:42 Solu-Medrol IVP 40 mg Q6 MARCELL Administration Multivitamins 1 tab 02/10/18 10:00 02/11/18 09:28 Hexavitamin PO 1 tab DAILY MARCELL Administration Oxycodone/Acetaminophen 1 tab 02/11/18 18:18 02/11/18 18:29 Percocet 5/325 Mg Tab PO 02/14/18 18:19 1 tab Q6H PRN Administration Pain, severe (8-10) Rosuvastatin Calcium 5 mg 02/10/18 22:00 02/10/18 22:20 Crestor PO Not Given HS [facility] Thiamine HCl 100 mg 02/10/18 10:00 02/11/18 09:28 Vitamin B1 Tab PO 100 mg DAILY MARCELL Administration - Patient Studies Lab Studies: Microbiology Studies 02/10/18 09:25 MRSA Culture (Admit) - Final Naris MRSA NOT DETECTED 02/10/18 03:02 Blood Culture - Preliminary Blood NO GROWTH AFTER 24 HOURS 02/10/18 03:05 Blood Culture - Preliminary Blood NO GROWTH AFTER 24 HOURS Lab Studies 02/11/18 02/11/18 02/11/18 Range/Units 16:12 11:04 07:22 WBC (4.8-10.8) K/uL RBC (4.40-5.90) Mil/uL Hgb (12.0-18.0) g/dL Hct (35.0-51.0) % MCV (80.0-94.0) fL MCH (27.0-31.0) pg MCHC (33.0-37.0) g/dL RDW (11.5-14.5) % Plt Count (130-400) K/uL MPV (7.2-11.7) fL Neut % (Auto) (50.0-75.0) % Lymph % (Auto) (20.0-40.0) % [place] % (Auto) (0.0-10.0) % Eos % (Auto) (0.0-4.0) % Baso % (Auto) (0.0-2.0) % Neut # (Auto) (1.8-7.0) K/uL Lymph # (Auto) (1.0-4.3) K/uL [place] # (Auto) (0.0-0.8) K/uL Eos # (Auto) (0.0-0.7) K/uL Baso # (Auto) (0.0-0.2) K/uL Neutrophils % (Manual) (50-75) % Band Neutrophils % (0-2) % Lymphocytes % (Manual) (20-40) % Monocytes % (Manual) (0-10) % Platelet Estimate (NORMAL) RBC Morphology Puncture Site pCO2 (35-45) mm/Hg pO2 (80-100) mm/Hg HCO3 (21-28) mmol/L ABG pH (7.35-7.45) ABG Total CO2 (22-28) mmol/L ABG O2 Saturation (95-98) % ABG Base Excess (-2.0-3.0) mmol/L ABG Hemoglobin (11.7-17.4) g/dL ABG Carboxyhemoglobin (0.5-1.5) % POC ABG HHb (Measured) (0.0-5.0) % ABG Methemoglobin (0.0-3.0) % Tab Test ABG Potassium (3.6-5.2) mmol/L A-a O2 Difference mm/Hg Respiratory Index Hgb O2 Saturation (95.0-98.0) % Glucose (75-110) mg/dl Lactate (0.7-2.1) mmol/L Vent Mode Mechanical Rate FiO2 % Inspiratory BiPAP Expiratory BiPAP Crit Value Called To Crit Value Called By Crit Value Read Back Blood Gas Notified Time Sodium (132-148) mmol/L Potassium (3.6-5.2) mmol/L Chloride (98-107) mmol/L Carbon Dioxide (22-30) mmol/L Anion Gap (10-20) BUN (9-20) mg/dL Creatinine (0.8-1.5) mg/dL Est GFR ( Amer) Est GFR (Non-Af Amer) POC Glucose (mg/dL) 188 H 249 H 147 H (65-110) mg/dL Random Glucose (75-110) mg/dL Lactic Acid (0.7-2.1) mmol/L Calcium (8.6-10.4) mg/dl Phosphorus (2.5-4.5) mg/dL Magnesium (1.6-2.3) mg/dL Total Bilirubin (0.2-1.3) mg/dL AST (17-59) U/L ALT (21-72) U/L Alkaline Phosphatase (38-126) U/L Total Creatine Kinase (55-170) U/L CK-MB (Mass) (0.0-3.38) ng/mL Troponin I (0.00-0.120) ng/mL Total Protein (6.3-8.3) g/dL Albumin (3.5-5.0) g/dL Globulin (2.2-3.9) gm/dL Albumin/Globulin Ratio (1.0-2.1) Arterial Blood Potassium (3.6-5.2) mmol/L C. difficile Ag & Toxin (NEGATIVE) 02/11/18 02/11/18 02/11/18 Range/Units 05:55 05:55 05:12 WBC 14.3 H (4.8-10.8) K/uL RBC 3.70 L (4.40-5.90) Mil/uL Hgb 12.3 (12.0-18.0) g/dL Hct 36.1 (35.0-51.0) % MCV 97.8 H D (80.0-94.0) fL MCH 33.2 H (27.0-31.0) pg MCHC 34.0 (33.0-37.0) g/dL RDW 13.9 (11.5-14.5) % Plt Count 142 (130-400) K/uL MPV 9.6 (7.2-11.7) fL Neut % (Auto) 93.4 H (50.0-75.0) % Lymph % (Auto) 3.6 L (20.0-40.0) % [place] % (Auto) 2.7 (0.0-10.0) % Eos % (Auto) 0.0 (0.0-4.0) % Baso % (Auto) 0.3 (0.0-2.0) % Neut # (Auto) 13.4 H (1.8-7.0) K/uL Lymph # (Auto) 0.5 L (1.0-4.3) K/uL [place] # (Auto) 0.4 (0.0-0.8) K/uL Eos # (Auto) 0.0 (0.0-0.7) K/uL Baso # (Auto) 0.0 (0.0-0.2) K/uL Neutrophils % (Manual) 93 H (50-75) % Band Neutrophils % 3 H (0-2) % Lymphocytes % (Manual) 3 L (20-40) % Monocytes % (Manual) 1 (0-10) % Platelet Estimate Normal (NORMAL) RBC Morphology Normal Puncture Site Rb pCO2 40 (35-45) mm/Hg pO2 84 (80-100) mm/Hg HCO3 28.2 H (21-28) mmol/L ABG pH 7.46 H (7.35-7.45) ABG Total CO2 29.6 H (22-28) mmol/L ABG O2 Saturation 97.8 (95-98) % ABG Base Excess 4.2 H (-2.0-3.0) mmol/L ABG Hemoglobin (11.7-17.4) g/dL ABG Carboxyhemoglobin (0.5-1.5) % POC ABG HHb (Measured) (0.0-5.0) % ABG Methemoglobin (0.0-3.0) % Tab Test Na ABG Potassium 3.6 (3.6-5.2) mmol/L A-a O2 Difference 294.0 mm/Hg Respiratory Index 3.5 Hgb O2 Saturation (95.0-98.0) % Glucose 165 H (75-110) mg/dl Lactate 0.9 (0.7-2.1) mmol/L Vent Mode Bipap Mechanical Rate FiO2 60.0 % Inspiratory BiPAP 13 Expiratory BiPAP 5 Crit Value Called To Crit Value Called By Crit Value Read Back Blood Gas Notified Time Sodium 136 139.0 (132-148) mmol/L Potassium 3.7 (3.6-5.2) mmol/L Chloride 103 106.0 (98-107) mmol/L Carbon Dioxide 28 (22-30) mmol/L Anion Gap 10 (10-20) BUN 22 H (9-20) mg/dL Creatinine 0.6 L (0.8-1.5) mg/dL Est GFR ( Amer) > 60 Est GFR (Non-Af Amer) > 60 POC Glucose (mg/dL) (65-110) mg/dL Random Glucose 163 H (75-110) mg/dL Lactic Acid (0.7-2.1) mmol/L Calcium 8.0 L (8.6-10.4) mg/dl Phosphorus 3.4 (2.5-4.5) mg/dL Magnesium 1.8 (1.6-2.3) mg/dL Total Bilirubin 0.5 (0.2-1.3) mg/dL AST 240 H D (17-59) U/L ALT 125 H D (21-72) U/L Alkaline Phosphatase 92 (38-126) U/L Total Creatine Kinase (55-170) U/L CK-MB (Mass) (0.0-3.38) ng/mL Troponin I (0.00-0.120) ng/mL Total Protein 6.4 (6.3-8.3) g/dL Albumin 3.2 L (3.5-5.0) g/dL Globulin 3.2 (2.2-3.9) gm/dL Albumin/Globulin Ratio 1.0 (1.0-2.1) Arterial Blood Potassium 3.6 (3.6-5.2) mmol/L C. difficile Ag & Toxin (NEGATIVE) 02/10/18 02/10/18 02/10/18 Range/Units 22:13 22:13 22:13 WBC 14.9 H (4.8-10.8) K/uL RBC 3.96 L (4.40-5.90) Mil/uL Hgb 12.8 (12.0-18.0) g/dL Hct 39.7 (35.0-51.0) % MCV 100.4 H (80.0-94.0) fL MCH 32.3 H (27.0-31.0) pg MCHC 32.2 L (33.0-37.0) g/dL RDW 13.9 (11.5-14.5) % Plt Count 159 (130-400) K/uL MPV 9.9 (7.2-11.7) fL Neut % (Auto) 91.9 H (50.0-75.0) % Lymph % (Auto) 4.9 L (20.0-40.0) % [place] % (Auto) 2.7 (0.0-10.0) % Eos % (Auto) 0.2 (0.0-4.0) % Baso % (Auto) 0.3 (0.0-2.0) % Neut # (Auto) 13.7 H (1.8-7.0) K/uL Lymph # (Auto) 0.7 L (1.0-4.3) K/uL [place] # (Auto) 0.4 (0.0-0.8) K/uL Eos # (Auto) 0.0 (0.0-0.7) K/uL Baso # (Auto) 0.0 (0.0-0.2) K/uL Neutrophils % (Manual) 94 H (50-75) % Band Neutrophils % (0-2) % Lymphocytes % (Manual) 4 L (20-40) % Monocytes % (Manual) 2 (0-10) % Platelet Estimate Normal (NORMAL) RBC Morphology Normal Puncture Site pCO2 (35-45) mm/Hg pO2 (80-100) mm/Hg HCO3 (21-28) mmol/L ABG pH (7.35-7.45) ABG Total CO2 (22-28) mmol/L ABG O2 Saturation (95-98) % ABG Base Excess (-2.0-3.0) mmol/L ABG Hemoglobin (11.7-17.4) g/dL ABG Carboxyhemoglobin (0.5-1.5) % POC ABG HHb (Measured) (0.0-5.0) % ABG Methemoglobin (0.0-3.0) % Tab Test ABG Potassium (3.6-5.2) mmol/L A-a O2 Difference mm/Hg Respiratory Index Hgb O2 Saturation (95.0-98.0) % Glucose (75-110) mg/dl Lactate (0.7-2.1) mmol/L Vent Mode Mechanical Rate FiO2 % Inspiratory BiPAP Expiratory BiPAP Crit Value Called To Crit Value Called By Crit Value Read Back Blood Gas Notified Time Sodium (132-148) mmol/L Potassium (3.6-5.2) mmol/L Chloride (98-107) mmol/L Carbon Dioxide (22-30) mmol/L Anion Gap (10-20) BUN (9-20) mg/dL Creatinine (0.8-1.5) mg/dL Est GFR ( Amer) Est GFR (Non-Af Amer) POC Glucose (mg/dL) (65-110) mg/dL Random Glucose (75-110) mg/dL Lactic Acid 5.8 H* (0.7-2.1) mmol/L Calcium (8.6-10.4) mg/dl Phosphorus (2.5-4.5) mg/dL Magnesium (1.6-2.3) mg/dL Total Bilirubin (0.2-1.3) mg/dL AST (17-59) U/L ALT (21-72) U/L Alkaline Phosphatase (38-126) U/L Total Creatine Kinase (55-170) U/L CK-MB (Mass) (0.0-3.38) ng/mL Troponin I (0.00-0.120) ng/mL Total Protein (6.3-8.3) g/dL Albumin (3.5-5.0) g/dL Globulin (2.2-3.9) gm/dL Albumin/Globulin Ratio (1.0-2.1) Arterial Blood Potassium (3.6-5.2) mmol/L C. difficile Ag & Toxin Negative (NEGATIVE) 02/10/18 02/10/18 02/10/18 Range/Units 21:11 20:36 19:45 WBC (4.8-10.8) K/uL RBC (4.40-5.90) Mil/uL Hgb (12.0-18.0) g/dL Hct (35.0-51.0) % MCV (80.0-94.0) fL MCH (27.0-31.0) pg MCHC (33.0-37.0) g/dL RDW (11.5-14.5) % Plt Count (130-400) K/uL MPV (7.2-11.7) fL Neut % (Auto) (50.0-75.0) % Lymph % (Auto) (20.0-40.0) % [place] % (Auto) (0.0-10.0) % Eos % (Auto) (0.0-4.0) % Baso % (Auto) (0.0-2.0) % Neut # (Auto) (1.8-7.0) K/uL Lymph # (Auto) (1.0-4.3) K/uL [place] # (Auto) (0.0-0.8) K/uL Eos # (Auto) (0.0-0.7) K/uL Baso # (Auto) (0.0-0.2) K/uL Neutrophils % (Manual) (50-75) % Band Neutrophils % (0-2) % Lymphocytes % (Manual) (20-40) % Monocytes % (Manual) (0-10) % Platelet Estimate (NORMAL) RBC Morphology Puncture Site Rba pCO2 29 L (35-45) mm/Hg pO2 99 (80-100) mm/Hg HCO3 11.0 L (21-28) mmol/L ABG pH 7.14 L* (7.35-7.45) ABG Total CO2 10.8 L (22-28) mmol/L ABG O2 Saturation 97.4 (95-98) % ABG Base Excess -17.8 L (-2.0-3.0) mmol/L ABG Hemoglobin 11.7 (11.7-17.4) g/dL ABG Carboxyhemoglobin 1.4 (0.5-1.5) % POC ABG HHb (Measured) 2.5 (0.0-5.0) % ABG Methemoglobin 0.6 (0.0-3.0) % Tab Test Na ABG Potassium (3.6-5.2) mmol/L A-a O2 Difference 221.0 mm/Hg Respiratory Index 2.2 Hgb O2 Saturation 95.5 (95.0-98.0) % Glucose (75-110) mg/dl Lactate (0.7-2.1) mmol/L Vent Mode Bipap Mechanical Rate 8 FiO2 50.0 % Inspiratory BiPAP 13 Expiratory BiPAP 5 Crit Value Called To Dr negin garcía Crit Value Called By Darrel goldman Crit Value Read Back Y Blood Gas Notified Time 1948 Sodium 139 (132-148) mmol/L Potassium 4.6 (3.6-5.2) mmol/L Chloride 108 H (98-107) mmol/L Carbon Dioxide 20 L (22-30) mmol/L Anion Gap 16 (10-20) BUN 17 (9-20) mg/dL Creatinine 1.2 (0.8-1.5) mg/dL Est GFR ( Amer) > 60 Est GFR (Non-Af Amer) > 60 POC Glucose (mg/dL) 164 H (65-110) mg/dL Random Glucose 145 H D (75-110) mg/dL Lactic Acid (0.7-2.1) mmol/L Calcium 7.5 L (8.6-10.4) mg/dl Phosphorus 7.3 H (2.5-4.5) mg/dL Magnesium 1.9 (1.6-2.3) mg/dL Total Bilirubin 1.3 (0.2-1.3) mg/dL AST 88 H D (17-59) U/L ALT 45 (21-72) U/L Alkaline Phosphatase 72 (38-126) U/L Total Creatine Kinase (55-170) U/L CK-MB (Mass) (0.0-3.38) ng/mL Troponin I (0.00-0.120) ng/mL Total Protein 5.8 L (6.3-8.3) g/dL Albumin 3.0 L (3.5-5.0) g/dL Globulin 2.9 (2.2-3.9) gm/dL Albumin/Globulin Ratio 1.0 (1.0-2.1) Arterial Blood Potassium (3.6-5.2) mmol/L C. difficile Ag & Toxin (NEGATIVE) 02/10/18 02/10/18 Range/Units 19:27 18:43 WBC (4.8-10.8) K/uL RBC (4.40-5.90) Mil/uL Hgb (12.0-18.0) g/dL Hct (35.0-51.0) % MCV (80.0-94.0) fL MCH (27.0-31.0) pg MCHC (33.0-37.0) g/dL RDW (11.5-14.5) % Plt Count (130-400) K/uL MPV (7.2-11.7) fL Neut % (Auto) (50.0-75.0) % Lymph % (Auto) (20.0-40.0) % [place] % (Auto) (0.0-10.0) % Eos % (Auto) (0.0-4.0) % Baso % (Auto) (0.0-2.0) % Neut # (Auto) (1.8-7.0) K/uL Lymph # (Auto) (1.0-4.3) K/uL [place] # (Auto) (0.0-0.8) K/uL Eos # (Auto) (0.0-0.7) K/uL Baso # (Auto) (0.0-0.2) K/uL Neutrophils % (Manual) (50-75) % Band Neutrophils % (0-2) % Lymphocytes % (Manual) (20-40) % Monocytes % (Manual) (0-10) % Platelet Estimate (NORMAL) RBC Morphology Puncture Site pCO2 (35-45) mm/Hg pO2 (80-100) mm/Hg HCO3 (21-28) mmol/L ABG pH (7.35-7.45) ABG Total CO2 (22-28) mmol/L ABG O2 Saturation (95-98) % ABG Base Excess (-2.0-3.0) mmol/L ABG Hemoglobin (11.7-17.4) g/dL ABG Carboxyhemoglobin (0.5-1.5) % POC ABG HHb (Measured) (0.0-5.0) % ABG Methemoglobin (0.0-3.0) % Tab Test ABG Potassium (3.6-5.2) mmol/L A-a O2 Difference mm/Hg Respiratory Index Hgb O2 Saturation (95.0-98.0) % Glucose (75-110) mg/dl Lactate (0.7-2.1) mmol/L Vent Mode Mechanical Rate FiO2 % Inspiratory BiPAP Expiratory BiPAP Crit Value Called To Crit Value Called By Crit Value Read Back Blood Gas Notified Time Sodium (132-148) mmol/L Potassium (3.6-5.2) mmol/L Chloride (98-107) mmol/L Carbon Dioxide (22-30) mmol/L Anion Gap (10-20) BUN (9-20) mg/dL Creatinine (0.8-1.5) mg/dL Est GFR ( Amer) Est GFR (Non-Af Amer) POC Glucose (mg/dL) 130 H (65-110) mg/dL Random Glucose (75-110) mg/dL Lactic Acid (0.7-2.1) mmol/L Calcium (8.6-10.4) mg/dl Phosphorus (2.5-4.5) mg/dL Magnesium (1.6-2.3) mg/dL Total Bilirubin (0.2-1.3) mg/dL AST (17-59) U/L ALT (21-72) U/L Alkaline Phosphatase (38-126) U/L Total Creatine Kinase 61 (55-170) U/L CK-MB (Mass) 1.33 (0.0-3.38) ng/mL Troponin I < 0.0120 (0.00-0.120) ng/mL Total Protein (6.3-8.3) g/dL Albumin (3.5-5.0) g/dL Globulin (2.2-3.9) gm/dL Albumin/Globulin Ratio (1.0-2.1) Arterial Blood Potassium (3.6-5.2) mmol/L C. difficile Ag & Toxin (NEGATIVE) Laboratory Results - last 24 hr 02/10/18 02/10/18 02/10/18 18:43 19:27 19:45 WBC RBC Hgb Hct MCV MCH MCHC RDW Plt Count MPV Neut % (Auto) Lymph % (Auto) [place] % (Auto) Eos % (Auto) Baso % (Auto) Neut # (Auto) Lymph # (Auto) [place] # (Auto) Eos # (Auto) Baso # (Auto) Neutrophils % (Manual) Band Neutrophils % Lymphocytes % (Manual) Monocytes % (Manual) Platelet Estimate RBC Morphology Puncture Site Rba pCO2 29 L pO2 99 HCO3 11.0 L ABG pH 7.14 L* ABG Total CO2 10.8 L ABG O2 Saturation 97.4 ABG Base Excess -17.8 L ABG Hemoglobin 11.7 ABG Carboxyhemoglobin 1.4 POC ABG HHb (Measured) 2.5 ABG Methemoglobin 0.6 Tab Test Na ABG Potassium A-a O2 Difference 221.0 Respiratory Index 2.2 Hgb O2 Saturation 95.5 Glucose Lactate Vent Mode Bipap Mechanical Rate 8 FiO2 50.0 Inspiratory BiPAP 13 Expiratory BiPAP 5 Crit Value Called To Dr negin garcía Crit Value Called By Darrel goldman Crit Value Read Back Y Blood Gas Notified Time 1948 Sodium Potassium Chloride Carbon Dioxide Anion Gap BUN Creatinine Est GFR ( Amer) Est GFR (Non-Af Amer) POC Glucose (mg/dL) 130 H Random Glucose Lactic Acid Calcium Phosphorus Magnesium Total Bilirubin AST ALT Alkaline Phosphatase Total Creatine Kinase 61 CK-MB (Mass) 1.33 Troponin I < 0.0120 Total Protein Albumin Globulin Albumin/Globulin Ratio Arterial Blood Potassium C. difficile Ag & Toxin 02/10/18 02/10/18 02/10/18 20:36 21:11 22:13 WBC 14.9 H RBC 3.96 L Hgb 12.8 Hct 39.7 MCV 100.4 H MCH 32.3 H MCHC 32.2 L RDW 13.9 Plt Count 159 MPV 9.9 Neut % (Auto) 91.9 H Lymph % (Auto) 4.9 L [place] % (Auto) 2.7 Eos % (Auto) 0.2 Baso % (Auto) 0.3 Neut # (Auto) 13.7 H Lymph # (Auto) 0.7 L [place] # (Auto) 0.4 Eos # (Auto) 0.0 Baso # (Auto) 0.0 Neutrophils % (Manual) 94 H Band Neutrophils % Lymphocytes % (Manual) 4 L Monocytes % (Manual) 2 Platelet Estimate Normal RBC Morphology Normal Puncture Site pCO2 pO2 HCO3 ABG pH ABG Total CO2 ABG O2 Saturation ABG Base Excess ABG Hemoglobin ABG Carboxyhemoglobin POC ABG HHb (Measured) ABG Methemoglobin Tab Test ABG Potassium A-a O2 Difference Respiratory Index Hgb O2 Saturation Glucose Lactate Vent Mode Mechanical Rate FiO2 Inspiratory BiPAP Expiratory BiPAP Crit Value Called To Crit Value Called By Crit Value Read Back Blood Gas Notified Time Sodium 139 Potassium 4.6 Chloride 108 H Carbon Dioxide 20 L Anion Gap 16 BUN 17 Creatinine 1.2 Est GFR ( Amer) > 60 Est GFR (Non-Af Amer) > 60 POC Glucose (mg/dL) 164 H Random Glucose 145 H D Lactic Acid Calcium 7.5 L Phosphorus 7.3 H Magnesium 1.9 Total Bilirubin 1.3 AST 88 H D ALT 45 Alkaline Phosphatase 72 Total Creatine Kinase CK-MB (Mass) Troponin I Total Protein 5.8 L Albumin 3.0 L Globulin 2.9 Albumin/Globulin Ratio 1.0 Arterial Blood Potassium C. difficile Ag & Toxin 02/10/18 02/10/18 02/11/18 22:13 22:13 05:12 WBC RBC Hgb Hct MCV MCH MCHC RDW Plt Count MPV Neut % (Auto) Lymph % (Auto) [place] % (Auto) Eos % (Auto) Baso % (Auto) Neut # (Auto) Lymph # (Auto) [place] # (Auto) Eos # (Auto) Baso # (Auto) Neutrophils % (Manual) Band Neutrophils % Lymphocytes % (Manual) Monocytes % (Manual) Platelet Estimate RBC Morphology Puncture Site Rb pCO2 40 pO2 84 HCO3 28.2 H ABG pH 7.46 H ABG Total CO2 29.6 H ABG O2 Saturation 97.8 ABG Base Excess 4.2 H ABG Hemoglobin ABG Carboxyhemoglobin POC ABG HHb (Measured) ABG Methemoglobin Tab Test Na ABG Potassium 3.6 A-a O2 Difference 294.0 Respiratory Index 3.5 Hgb O2 Saturation Glucose 165 H Lactate 0.9 Vent Mode Bipap Mechanical Rate FiO2 60.0 Inspiratory BiPAP 13 Expiratory BiPAP 5 Crit Value Called To Crit Value Called By Crit Value Read Back Blood Gas Notified Time Sodium 139.0 Potassium Chloride 106.0 Carbon Dioxide Anion Gap BUN Creatinine Est GFR ( Amer) Est GFR (Non-Af Amer) POC Glucose (mg/dL) Random Glucose Lactic Acid 5.8 H* Calcium Phosphorus Magnesium Total Bilirubin AST ALT Alkaline Phosphatase Total Creatine Kinase CK-MB (Mass) Troponin I Total Protein Albumin Globulin Albumin/Globulin Ratio Arterial Blood Potassium 3.6 C. difficile Ag & Toxin Negative 02/11/18 02/11/18 02/11/18 05:55 05:55 07:22 WBC 14.3 H RBC 3.70 L Hgb 12.3 Hct 36.1 MCV 97.8 H D MCH 33.2 H MCHC 34.0 RDW 13.9 Plt Count 142 MPV 9.6 Neut % (Auto) 93.4 H Lymph % (Auto) 3.6 L [place] % (Auto) 2.7 Eos % (Auto) 0.0 Baso % (Auto) 0.3 Neut # (Auto) 13.4 H Lymph # (Auto) 0.5 L [place] # (Auto) 0.4 Eos # (Auto) 0.0 Baso # (Auto) 0.0 Neutrophils % (Manual) 93 H Band Neutrophils % 3 H Lymphocytes % (Manual) 3 L Monocytes % (Manual) 1 Platelet Estimate Normal RBC Morphology Normal Puncture Site pCO2 pO2 HCO3 ABG pH ABG Total CO2 ABG O2 Saturation ABG Base Excess ABG Hemoglobin ABG Carboxyhemoglobin POC ABG HHb (Measured) ABG Methemoglobin Tab Test ABG Potassium A-a O2 Difference Respiratory Index Hgb O2 Saturation Glucose Lactate Vent Mode Mechanical Rate FiO2 Inspiratory BiPAP Expiratory BiPAP Crit Value Called To Crit Value Called By Crit Value Read Back Blood Gas Notified Time Sodium 136 Potassium 3.7 Chloride 103 Carbon Dioxide 28 Anion Gap 10 BUN 22 H Creatinine 0.6 L Est GFR ( Amer) > 60 Est GFR (Non-Af Amer) > 60 POC Glucose (mg/dL) 147 H Random Glucose 163 H Lactic Acid Calcium 8.0 L Phosphorus 3.4 Magnesium 1.8 Total Bilirubin 0.5 AST 240 H D ALT 125 H D Alkaline Phosphatase 92 Total Creatine Kinase CK-MB (Mass) Troponin I Total Protein 6.4 Albumin 3.2 L Globulin 3.2 Albumin/Globulin Ratio 1.0 Arterial Blood Potassium C. difficile Ag & Toxin 02/11/18 02/11/18 11:04 16:12 WBC RBC Hgb Hct MCV MCH MCHC RDW Plt Count MPV Neut % (Auto) Lymph % (Auto) [place] % (Auto) Eos % (Auto) Baso % (Auto) Neut # (Auto) Lymph # (Auto) [place] # (Auto) Eos # (Auto) Baso # (Auto) Neutrophils % (Manual) Band Neutrophils % Lymphocytes % (Manual) Monocytes % (Manual) Platelet Estimate RBC Morphology Puncture Site pCO2 pO2 HCO3 ABG pH ABG Total CO2 ABG O2 Saturation ABG Base Excess ABG Hemoglobin ABG Carboxyhemoglobin POC ABG HHb (Measured) ABG Methemoglobin Tab Test ABG Potassium A-a O2 Difference Respiratory Index Hgb O2 Saturation Glucose Lactate Vent Mode Mechanical Rate FiO2 Inspiratory BiPAP Expiratory BiPAP Crit Value Called To Crit Value Called By Crit Value Read Back Blood Gas Notified Time Sodium Potassium Chloride Carbon Dioxide Anion Gap BUN Creatinine Est GFR ( Amer) Est GFR (Non-Af Amer) POC Glucose (mg/dL) 249 H 188 H Random Glucose Lactic Acid Calcium Phosphorus Magnesium Total Bilirubin AST ALT Alkaline Phosphatase Total Creatine Kinase CK-MB (Mass) Troponin I Total Protein Albumin Globulin Albumin/Globulin Ratio Arterial Blood Potassium C. 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 Necrotic lymph node stable at the right jugular digastric change superiorly. No definite pattern suggests interval extension of prior mass or increased lymphadenopathy. Stable mild narrowing of the laryngeal airway at the level of the false vocal cords. Continued clinical and CT vigilance is advised. Again, PET CT is available follow-up if clinically warranted. Chest X-Ray 02/10/18 18:12 IMPRESSION: Linear atelectasis right costophrenic sulcus with remaining lung goldstein clear. No interval pulmonary vascular congestion appreciable. EKG/Cardiology Studies: Cardiology / EKG Studies 02/10/18 18:29 EKG [ELECTROCARDIOGRAM] Stat Comment: Mode Of Transportation: Reason For Exam: r/o [place] Critical Care Progress Note - Nutrition Nutrition: Nutrition Category Date Time Status Consistent Carbohydrate [DIET] Diets 02/10/18 Breakfast Active Attending/Attestation - Attestation I have personally seen and examined this patient.: Yes I have fully participated in the care of the patient.: Yes I have reviewed all pertinent clinical information: Yes Notes (Text): 02/11/18 18:54 Patient seen and examined Patient is off BiPAP Breathing much improved Continue present treatment Stable for transfer to floor <Mele Gannon - Last Filed: 02/11/18 18:56> CCU Subjective - Physician Review Subjective (Free Text): PGY-1 Critical Care Progress Note for Dr. Blair's service Patient seen and examined at bedside. Patient offers no acute complaints. Patient denies fevers, chills, chest pain, sob, n/v, constipation or diarrhea, and dysuria. Critical Care Time Spent (in minutes): 35 CCU Objective - Vital Signs / Intake & Output Vital Signs (Last 4 hours): Vital Signs Temp Pulse Resp BP Pulse Ox 02/11/18 11:00 83 25 H 124/79 100 02/11/18 10:00 94 H 21 127/64 98 02/11/18 09:00 103 H 22 102/63 98 02/11/18 08:30 91 H 20 99 02/11/18 08:00 97.5 F L 95 H 21 118/86 97 Intake and Output (Last 8hrs): Intake & Output 02/10/18 02/11/18 02/11/18 22:59 06:59 14:59 Intake Total 1064.8 689.5 275 Output Total 902 300 Balance 162.8 389.5 275 Weight 183 lb Intake: Intake, IV Amount 314.8 689.5 Left Antecubital 150 600 Left Wrist 64.8 89.5 left arm 100 Oral 750 275 Output: Urine 900 300 Urine, Voided 900 300 Urine/Stool Mix 2 Other: # Voids Urine, Voided 3 # Bowel Movements 1 1 1 - Physical Exam Head: Positive for: Atraumatic, Normocephalic Pupils: Positive for: PERRL Extroacular Muscles: Positive for: EOMI Conjunctiva: Positive for: Normal Mouth: Positive for: Moist Mucous Membranes Respiratory/Chest: Positive for: Clear to Auscultation, Good Air Exchange. Negative for: Respiratory Distress, Accessory Muscle Use Cardiovascular: Positive for: Regular Rate and Rhythm, Normal S1, S2. Negative for: Murmurs, Tachycardic Upper Extremity: Positive for: Normal Inspection. 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 Negative for: Edema Neurological: Positive for: GCS=15 Skin: Positive for: Warm, Normal Color Psychiatric: Positive for: Alert, Oriented x 3 - Medications Active Medications: Active Medications Generic Name Dose Route Start Last Admin Trade Name Freq PRN Reason Stop Dose Admin Acetaminophen 650 mg 02/10/18 13:48 02/11/18 09:40 Tylenol 325mg Tab PO 650 mg ONCE PRN Administration Pain, Mild (1-3) Albuterol/Ipratropium 3 ml 02/10/18 17:00 02/11/18 07:03 Duoneb 3 Mg/0.5 Mg (3 Ml) Ud INH 3 ml RQ6 MARCELL Administration Budesonide 0.5 mg 02/10/18 08:00 02/11/18 07:03 Pulmicort Respules INH 0.5 mg RQ12 MARCELL Administration Clopidogrel Bisulfate 75 mg 02/10/18 10:00 02/11/18 09:34 Plavix PO 75 mg DAILY MARCELL Administration Dextrose 0 ml 02/10/18 05:15 Dextrose 50% Inj IV STAT PRN Hypoglycemia Protocol Protocol Dextrose 0 gm 02/10/18 05:15 Glutose 15 PO ONCE PRN Hypoglycemia Protocol Protocol Enoxaparin Sodium 40 mg 02/10/18 10:00 02/11/18 09:37 Lovenox SC Not Given DAILY MARCELL Folic Acid 1 mg 02/10/18 10:00 02/11/18 09:28 Folic Acid PO 1 mg DAILY MARCELL Administration Glucagon 0 mg 02/10/18 05:15 Glucagen Diagnostic Kit IM STAT PRN Hypoglycemia Protocol Protocol Dextrose 1,000 mls @ 0 mls/hr 02/10/18 05:15 Dextrose 5% In Water 1000 Ml IV .Q0M PRN Hypoglycemia Protocol Protocol Per Protocol Doxycycline Hyclate 100 mg/ 100 mls @ 100 mls/hr 02/10/18 21:00 02/11/18 09:29 Sodium Chloride IVPB 100 mls/hr Q12H MARCELL Administration Protocol Ceftriaxone Sodium 1 gm/ 100 mls @ 100 mls/hr 02/11/18 10:00 02/11/18 09:29 Sodium Chloride IVPB 100 mls/hr DAILY MARCELL Administration Protocol Insulin Aspart 0 unit 02/10/18 07:30 02/11/18 07:39 Novolog SC Not Given ACHS MARCELL Protocol Insulin Glargine 30 unit 02/11/18 10:00 02/11/18 09:38 Lantus SC Not Given DAILY MARCELL Methylprednisolone 40 mg 02/10/18 12:00 02/11/18 05:43 Solu-Medrol IVP 40 mg Q6 MARCELL Administration Multivitamins 1 tab 02/10/18 10:00 02/11/18 09:28 Hexavitamin PO 1 tab DAILY MARCELL Administration Rosuvastatin Calcium 5 mg 02/10/18 22:00 02/10/18 22:20 Crestor PO Not Given HS MARCELL Thiamine HCl 100 mg 02/10/18 10:00 02/11/18 09:28 Vitamin B1 Tab PO 100 mg DAILY MARCELL Administration - Patient Studies Lab Studies: Microbiology Studies 02/10/18 03:02 Blood Culture - Preliminary Blood NO GROWTH AFTER 24 HOURS 02/10/18 03:05 Blood Culture - Preliminary Blood NO GROWTH AFTER 24 HOURS Lab Studies 02/11/18 02/11/18 02/11/18 Range/Units 05:55 05:55 05:12 WBC 14.3 H (4.8-10.8) K/uL RBC 3.70 L (4.40-5.90) Mil/uL Hgb 12.3 (12.0-18.0) g/dL Hct 36.1 (35.0-51.0) % MCV 97.8 H D (80.0-94.0) fL MCH 33.2 H (27.0-31.0) pg MCHC 34.0 (33.0-37.0) g/dL RDW 13.9 (11.5-14.5) % Plt Count 142 (130-400) K/uL MPV 9.6 (7.2-11.7) fL Neut % (Auto) 93.4 H (50.0-75.0) % Lymph % (Auto) 3.6 L (20.0-40.0) % [place] % (Auto) 2.7 (0.0-10.0) % Eos % (Auto) 0.0 (0.0-4.0) % Baso % (Auto) 0.3 (0.0-2.0) % Neut # (Auto) 13.4 H (1.8-7.0) K/uL Lymph # (Auto) 0.5 L (1.0-4.3) K/uL [place] # (Auto) 0.4 (0.0-0.8) K/uL Eos # (Auto) 0.0 (0.0-0.7) K/uL Baso # (Auto) 0.0 (0.0-0.2) K/uL Neutrophils % (Manual) 93 H (50-75) % Band Neutrophils % 3 H (0-2) % Lymphocytes % (Manual) 3 L (20-40) % Monocytes % (Manual) 1 (0-10) % Platelet Estimate Normal (NORMAL) Large Platelets RBC Morphology Normal Anisocytosis (manual) Puncture Site Rb pCO2 40 (35-45) mm/Hg pO2 84 (80-100) mm/Hg HCO3 28.2 H (21-28) mmol/L ABG pH 7.46 H (7.35-7.45) ABG Total CO2 29.6 H (22-28) mmol/L ABG O2 Saturation 97.8 (95-98) % ABG Base Excess 4.2 H (-2.0-3.0) mmol/L ABG Hemoglobin (11.7-17.4) g/dL ABG Carboxyhemoglobin (0.5-1.5) % POC ABG HHb (Measured) (0.0-5.0) % ABG Methemoglobin (0.0-3.0) % Tab Test Na ABG Potassium 3.6 (3.6-5.2) mmol/L A-a O2 Difference 294.0 mm/Hg Respiratory Index 3.5 Hgb O2 Saturation (95.0-98.0) % Glucose 165 H (75-110) mg/dl Lactate 0.9 (0.7-2.1) mmol/L Vent Mode Bipap Mechanical Rate FiO2 60.0 % Inspiratory BiPAP 13 Expiratory BiPAP 5 Crit Value Called To Crit Value Called By Crit Value Read Back Blood Gas Notified Time Sodium 136 139.0 (132-148) mmol/L Potassium 3.7 (3.6-5.2) mmol/L Chloride 103 106.0 (98-107) mmol/L Carbon Dioxide 28 (22-30) mmol/L Anion Gap 10 (10-20) BUN 22 H (9-20) mg/dL Creatinine 0.6 L (0.8-1.5) mg/dL Est GFR ( Amer) > 60 Est GFR (Non-Af Amer) > 60 POC Glucose (mg/dL) (65-110) mg/dL Random Glucose 163 H (75-110) mg/dL Lactic Acid (0.7-2.1) mmol/L Calcium 8.0 L (8.6-10.4) mg/dl Phosphorus 3.4 (2.5-4.5) mg/dL Magnesium 1.8 (1.6-2.3) mg/dL Total Bilirubin 0.5 (0.2-1.3) mg/dL AST 240 H D (17-59) U/L ALT 125 H D (21-72) U/L Alkaline Phosphatase 92 (38-126) U/L Total Creatine Kinase (55-170) U/L CK-MB (Mass) (0.0-3.38) ng/mL Troponin I (0.00-0.120) ng/mL NT-Pro-B Natriuret Pep (0-900) pg/mL Total Protein 6.4 (6.3-8.3) g/dL Albumin 3.2 L (3.5-5.0) g/dL Globulin 3.2 (2.2-3.9) gm/dL Albumin/Globulin Ratio 1.0 (1.0-2.1) Arterial Blood Potassium 3.6 (3.6-5.2) mmol/L Influenza Typ A,B (EIA) (NEGATIVE) 02/10/18 02/10/18 02/10/18 Range/Units 22:13 22:13 21:11 WBC 14.9 H (4.8-10.8) K/uL RBC 3.96 L (4.40-5.90) Mil/uL Hgb 12.8 (12.0-18.0) g/dL Hct 39.7 (35.0-51.0) % MCV 100.4 H (80.0-94.0) fL MCH 32.3 H (27.0-31.0) pg MCHC 32.2 L (33.0-37.0) g/dL RDW 13.9 (11.5-14.5) % Plt Count 159 (130-400) K/uL MPV 9.9 (7.2-11.7) fL Neut % (Auto) 91.9 H (50.0-75.0) % Lymph % (Auto) 4.9 L (20.0-40.0) % [place] % (Auto) 2.7 (0.0-10.0) % Eos % (Auto) 0.2 (0.0-4.0) % Baso % (Auto) 0.3 (0.0-2.0) % Neut # (Auto) 13.7 H (1.8-7.0) K/uL Lymph # (Auto) 0.7 L (1.0-4.3) K/uL [place] # (Auto) 0.4 (0.0-0.8) K/uL Eos # (Auto) 0.0 (0.0-0.7) K/uL Baso # (Auto) 0.0 (0.0-0.2) K/uL Neutrophils % (Manual) 94 H (50-75) % Band Neutrophils % (0-2) % Lymphocytes % (Manual) 4 L (20-40) % Monocytes % (Manual) 2 (0-10) % Platelet Estimate Normal (NORMAL) Large Platelets RBC Morphology Normal Anisocytosis (manual) Puncture Site pCO2 (35-45) mm/Hg pO2 (80-100) mm/Hg HCO3 (21-28) mmol/L ABG pH (7.35-7.45) ABG Total CO2 (22-28) mmol/L ABG O2 Saturation (95-98) % ABG Base Excess (-2.0-3.0) mmol/L ABG Hemoglobin (11.7-17.4) g/dL ABG Carboxyhemoglobin (0.5-1.5) % POC ABG HHb (Measured) (0.0-5.0) % ABG Methemoglobin (0.0-3.0) % Tab Test ABG Potassium (3.6-5.2) mmol/L A-a O2 Difference mm/Hg Respiratory Index Hgb O2 Saturation (95.0-98.0) % Glucose (75-110) mg/dl Lactate (0.7-2.1) mmol/L Vent Mode Mechanical Rate FiO2 % Inspiratory BiPAP Expiratory BiPAP Crit Value Called To Crit Value Called By Crit Value Read Back Blood Gas Notified Time Sodium (132-148) mmol/L Potassium (3.6-5.2) mmol/L Chloride (98-107) mmol/L Carbon Dioxide (22-30) mmol/L Anion Gap (10-20) BUN (9-20) mg/dL Creatinine (0.8-1.5) mg/dL Est GFR ( Amer) Est GFR (Non-Af Amer) POC Glucose (mg/dL) 164 H (65-110) mg/dL Random Glucose (75-110) mg/dL Lactic Acid 5.8 H* (0.7-2.1) mmol/L Calcium (8.6-10.4) mg/dl Phosphorus (2.5-4.5) mg/dL Magnesium (1.6-2.3) mg/dL Total Bilirubin (0.2-1.3) mg/dL AST (17-59) U/L ALT (21-72) U/L Alkaline Phosphatase (38-126) U/L Total Creatine Kinase (55-170) U/L CK-MB (Mass) (0.0-3.38) ng/mL Troponin I (0.00-0.120) ng/mL NT-Pro-B Natriuret Pep (0-900) pg/mL Total Protein (6.3-8.3) g/dL Albumin (3.5-5.0) g/dL Globulin (2.2-3.9) gm/dL Albumin/Globulin Ratio (1.0-2.1) Arterial Blood Potassium (3.6-5.2) mmol/L Influenza Typ A,B (EIA) (NEGATIVE) 02/10/18 02/10/18 02/10/18 Range/Units 20:36 19:45 19:27 WBC (4.8-10.8) K/uL RBC (4.40-5.90) Mil/uL Hgb (12.0-18.0) g/dL Hct (35.0-51.0) % MCV (80.0-94.0) fL MCH (27.0-31.0) pg MCHC (33.0-37.0) g/dL RDW (11.5-14.5) % Plt Count (130-400) K/uL MPV (7.2-11.7) fL Neut % (Auto) (50.0-75.0) % Lymph % (Auto) (20.0-40.0) % [place] % (Auto) (0.0-10.0) % Eos % (Auto) (0.0-4.0) % Baso % (Auto) (0.0-2.0) % Neut # (Auto) (1.8-7.0) K/uL Lymph # (Auto) (1.0-4.3) K/uL [place] # (Auto) (0.0-0.8) K/uL Eos # (Auto) (0.0-0.7) K/uL Baso # (Auto) (0.0-0.2) K/uL Neutrophils % (Manual) (50-75) % Band Neutrophils % (0-2) % Lymphocytes % (Manual) (20-40) % Monocytes % (Manual) (0-10) % Platelet Estimate (NORMAL) Large Platelets RBC Morphology Anisocytosis (manual) Puncture Site Rba pCO2 29 L (35-45) mm/Hg pO2 99 (80-100) mm/Hg HCO3 11.0 L (21-28) mmol/L ABG pH 7.14 L* (7.35-7.45) ABG Total CO2 10.8 L (22-28) mmol/L ABG O2 Saturation 97.4 (95-98) % ABG Base Excess -17.8 L (-2.0-3.0) mmol/L ABG Hemoglobin 11.7 (11.7-17.4) g/dL ABG Carboxyhemoglobin 1.4 (0.5-1.5) % POC ABG HHb (Measured) 2.5 (0.0-5.0) % ABG Methemoglobin 0.6 (0.0-3.0) % Tab Test Na ABG Potassium (3.6-5.2) mmol/L A-a O2 Difference 221.0 mm/Hg Respiratory Index 2.2 Hgb O2 Saturation 95.5 (95.0-98.0) % Glucose (75-110) mg/dl Lactate (0.7-2.1) mmol/L Vent Mode Bipap Mechanical Rate 8 FiO2 50.0 % Inspiratory BiPAP 13 Expiratory BiPAP 5 Crit Value Called To Dr negin garcía Crit Value Called By Darrel goldman Crit Value Read Back Y Blood Gas Notified Time 1948 Sodium 139 (132-148) mmol/L Potassium 4.6 (3.6-5.2) mmol/L Chloride 108 H (98-107) mmol/L Carbon Dioxide 20 L (22-30) mmol/L Anion Gap 16 (10-20) BUN 17 (9-20) mg/dL Creatinine 1.2 (0.8-1.5) mg/dL Est GFR ( Amer) > 60 Est GFR (Non-Af Amer) > 60 POC Glucose (mg/dL) 130 H (65-110) mg/dL Random Glucose 145 H D (75-110) mg/dL Lactic Acid (0.7-2.1) mmol/L Calcium 7.5 L (8.6-10.4) mg/dl Phosphorus 7.3 H (2.5-4.5) mg/dL Magnesium 1.9 (1.6-2.3) mg/dL Total Bilirubin 1.3 (0.2-1.3) mg/dL AST 88 H D (17-59) U/L ALT 45 (21-72) U/L Alkaline Phosphatase 72 (38-126) U/L Total Creatine Kinase (55-170) U/L CK-MB (Mass) (0.0-3.38) ng/mL Troponin I (0.00-0.120) ng/mL NT-Pro-B Natriuret Pep (0-900) pg/mL Total Protein 5.8 L (6.3-8.3) g/dL Albumin 3.0 L (3.5-5.0) g/dL Globulin 2.9 (2.2-3.9) gm/dL Albumin/Globulin Ratio 1.0 (1.0-2.1) Arterial Blood Potassium (3.6-5.2) mmol/L Influenza Typ A,B (EIA) (NEGATIVE) 02/10/18 02/10/18 02/10/18 Range/Units 18:43 16:14 12:48 WBC (4.8-10.8) K/uL RBC (4.40-5.90) Mil/uL Hgb (12.0-18.0) g/dL Hct (35.0-51.0) % MCV (80.0-94.0) fL MCH (27.0-31.0) pg MCHC (33.0-37.0) g/dL RDW (11.5-14.5) % Plt Count (130-400) K/uL MPV (7.2-11.7) fL Neut % (Auto) (50.0-75.0) % Lymph % (Auto) (20.0-40.0) % [place] % (Auto) (0.0-10.0) % Eos % (Auto) (0.0-4.0) % Baso % (Auto) (0.0-2.0) % Neut # (Auto) (1.8-7.0) K/uL Lymph # (Auto) (1.0-4.3) K/uL [place] # (Auto) (0.0-0.8) K/uL Eos # (Auto) (0.0-0.7) K/uL Baso # (Auto) (0.0-0.2) K/uL Neutrophils % (Manual) (50-75) % Band Neutrophils % (0-2) % Lymphocytes % (Manual) (20-40) % Monocytes % (Manual) (0-10) % Platelet Estimate (NORMAL) Large Platelets RBC Morphology Anisocytosis (manual) Puncture Site pCO2 (35-45) mm/Hg pO2 (80-100) mm/Hg HCO3 (21-28) mmol/L ABG pH (7.35-7.45) ABG Total CO2 (22-28) mmol/L ABG O2 Saturation (95-98) % ABG Base Excess (-2.0-3.0) mmol/L ABG Hemoglobin (11.7-17.4) g/dL ABG Carboxyhemoglobin (0.5-1.5) % POC ABG HHb (Measured) (0.0-5.0) % ABG Methemoglobin (0.0-3.0) % Tab Test ABG Potassium (3.6-5.2) mmol/L A-a O2 Difference mm/Hg Respiratory Index Hgb O2 Saturation (95.0-98.0) % Glucose (75-110) mg/dl Lactate (0.7-2.1) mmol/L Vent Mode Mechanical Rate FiO2 % Inspiratory BiPAP Expiratory BiPAP Crit Value Called To Crit Value Called By Crit Value Read Back Blood Gas Notified Time Sodium (132-148) mmol/L Potassium (3.6-5.2) mmol/L Chloride (98-107) mmol/L Carbon Dioxide (22-30) mmol/L Anion Gap (10-20) BUN (9-20) mg/dL Creatinine (0.8-1.5) mg/dL Est GFR ( Amer) Est GFR (Non-Af Amer) POC Glucose (mg/dL) 107 (65-110) mg/dL Random Glucose (75-110) mg/dL Lactic Acid (0.7-2.1) mmol/L Calcium (8.6-10.4) mg/dl Phosphorus (2.5-4.5) mg/dL Magnesium (1.6-2.3) mg/dL Total Bilirubin (0.2-1.3) mg/dL AST (17-59) U/L ALT (21-72) U/L Alkaline Phosphatase (38-126) U/L Total Creatine Kinase 61 (55-170) U/L CK-MB (Mass) 1.33 (0.0-3.38) ng/mL Troponin I < 0.0120 (0.00-0.120) ng/mL NT-Pro-B Natriuret Pep (0-900) pg/mL Total Protein (6.3-8.3) g/dL Albumin (3.5-5.0) g/dL Globulin (2.2-3.9) gm/dL Albumin/Globulin Ratio (1.0-2.1) Arterial Blood Potassium (3.6-5.2) mmol/L Influenza Typ A,B (EIA) Negative for flu a/b (NEGATIVE) 02/10/18 02/10/18 02/10/18 Range/Units 11:56 11:56 11:09 WBC 10.6 (4.8-10.8) K/uL RBC 3.83 L (4.40-5.90) Mil/uL Hgb 12.5 (12.0-18.0) g/dL Hct 38.1 (35.0-51.0) % MCV 99.6 H (80.0-94.0) fL MCH 32.7 H (27.0-31.0) pg MCHC 32.9 L (33.0-37.0) g/dL RDW 14.1 (11.5-14.5) % Plt Count 156 (130-400) K/uL MPV 9.5 (7.2-11.7) fL Neut % (Auto) 95.5 H (50.0-75.0) % Lymph % (Auto) 2.8 L (20.0-40.0) % [place] % (Auto) 1.6 (0.0-10.0) % Eos % (Auto) 0.0 (0.0-4.0) % Baso % (Auto) 0.1 (0.0-2.0) % Neut # (Auto) 10.1 H (1.8-7.0) K/uL Lymph # (Auto) 0.3 L (1.0-4.3) K/uL [place] # (Auto) 0.2 (0.0-0.8) K/uL Eos # (Auto) 0.0 (0.0-0.7) K/uL Baso # (Auto) 0.0 (0.0-0.2) K/uL Neutrophils % (Manual) 95 H (50-75) % Band Neutrophils % (0-2) % Lymphocytes % (Manual) 3 L (20-40) % Monocytes % (Manual) 2 (0-10) % Platelet Estimate Normal (NORMAL) Large Platelets Present RBC Morphology Anisocytosis (manual) Slight Puncture Site pCO2 (35-45) mm/Hg pO2 (80-100) mm/Hg HCO3 (21-28) mmol/L ABG pH (7.35-7.45) ABG Total CO2 (22-28) mmol/L ABG O2 Saturation (95-98) % ABG Base Excess (-2.0-3.0) mmol/L ABG Hemoglobin (11.7-17.4) g/dL ABG Carboxyhemoglobin (0.5-1.5) % POC ABG HHb (Measured) (0.0-5.0) % ABG Methemoglobin (0.0-3.0) % Tab Test ABG Potassium (3.6-5.2) mmol/L A-a O2 Difference mm/Hg Respiratory Index Hgb O2 Saturation (95.0-98.0) % Glucose (75-110) mg/dl Lactate (0.7-2.1) mmol/L Vent Mode Mechanical Rate FiO2 % Inspiratory BiPAP Expiratory BiPAP Crit Value Called To Crit Value Called By Crit Value Read Back Blood Gas Notified Time Sodium 138 (132-148) mmol/L Potassium 4.5 (3.6-5.2) mmol/L Chloride 109 H (98-107) mmol/L Carbon Dioxide 22 (22-30) mmol/L Anion Gap 12 (10-20) BUN 11 (9-20) mg/dL Creatinine 0.5 L (0.8-1.5) mg/dL Est GFR ( Amer) > 60 Est GFR (Non-Af Amer) > 60 POC Glucose (mg/dL) 265 H (65-110) mg/dL Random Glucose 206 H (75-110) mg/dL Lactic Acid (0.7-2.1) mmol/L Calcium 7.7 L (8.6-10.4) mg/dl Phosphorus (2.5-4.5) mg/dL Magnesium (1.6-2.3) mg/dL Total Bilirubin 0.3 (0.2-1.3) mg/dL AST 16 L (17-59) U/L ALT 10 L D (21-72) U/L Alkaline Phosphatase 81 (38-126) U/L Total Creatine Kinase (55-170) U/L CK-MB (Mass) (0.0-3.38) ng/mL Troponin I (0.00-0.120) ng/mL NT-Pro-B Natriuret Pep 598 (0-900) pg/mL Total Protein 6.5 (6.3-8.3) g/dL Albumin 3.2 L (3.5-5.0) g/dL Globulin 3.3 (2.2-3.9) gm/dL Albumin/Globulin Ratio 1.0 (1.0-2.1) Arterial Blood Potassium (3.6-5.2) mmol/L Influenza Typ A,B (EIA) (NEGATIVE) Laboratory Results - last 24 hr 02/10/18 02/10/18 02/10/18 11:09 11:56 11:56 WBC 10.6 RBC 3.83 L Hgb 12.5 Hct 38.1 MCV 99.6 H MCH 32.7 H MCHC 32.9 L RDW 14.1 Plt Count 156 MPV 9.5 Neut % (Auto) 95.5 H Lymph % (Auto) 2.8 L [place] % (Auto) 1.6 Eos % (Auto) 0.0 Baso % (Auto) 0.1 Neut # (Auto) 10.1 H Lymph # (Auto) 0.3 L [place] # (Auto) 0.2 Eos # (Auto) 0.0 Baso # (Auto) 0.0 Neutrophils % (Manual) 95 H Band Neutrophils % Lymphocytes % (Manual) 3 L Monocytes % (Manual) 2 Platelet Estimate Normal Large Platelets Present RBC Morphology Anisocytosis (manual) Slight Puncture Site pCO2 pO2 HCO3 ABG pH ABG Total CO2 ABG O2 Saturation ABG Base Excess ABG Hemoglobin ABG Carboxyhemoglobin POC ABG HHb (Measured) ABG Methemoglobin Tab Test ABG Potassium A-a O2 Difference Respiratory Index Hgb O2 Saturation Glucose Lactate Vent Mode Mechanical Rate FiO2 Inspiratory BiPAP Expiratory BiPAP Crit Value Called To Crit Value Called By Crit Value Read Back Blood Gas Notified Time Sodium 138 Potassium 4.5 Chloride 109 H Carbon Dioxide 22 Anion Gap 12 BUN 11 Creatinine 0.5 L Est GFR ( Amer) > 60 Est GFR (Non-Af Amer) > 60 POC Glucose (mg/dL) 265 H Random Glucose 206 H Lactic Acid Calcium 7.7 L Phosphorus Magnesium Total Bilirubin 0.3 AST 16 L ALT 10 L D Alkaline Phosphatase 81 Total Creatine Kinase CK-MB (Mass) Troponin I NT-Pro-B Natriuret Pep 598 Total Protein 6.5 Albumin 3.2 L Globulin 3.3 Albumin/Globulin Ratio 1.0 Arterial Blood Potassium Influenza Typ A,B (EIA) 02/10/18 02/10/18 02/10/18 12:48 16:14 18:43 WBC RBC Hgb Hct MCV MCH MCHC RDW Plt Count MPV Neut % (Auto) Lymph % (Auto) [place] % (Auto) Eos % (Auto) Baso % (Auto) Neut # (Auto) Lymph # (Auto) [place] # (Auto) Eos # (Auto) Baso # (Auto) Neutrophils % (Manual) Band Neutrophils % Lymphocytes % (Manual) Monocytes % (Manual) Platelet Estimate Large Platelets RBC Morphology Anisocytosis (manual) Puncture Site pCO2 pO2 HCO3 ABG pH ABG Total CO2 ABG O2 Saturation ABG Base Excess ABG Hemoglobin ABG Carboxyhemoglobin POC ABG HHb (Measured) ABG Methemoglobin Tab Test ABG Potassium A-a O2 Difference Respiratory Index Hgb O2 Saturation Glucose Lactate Vent Mode Mechanical Rate FiO2 Inspiratory BiPAP Expiratory BiPAP Crit Value Called To Crit Value Called By Crit Value Read Back Blood Gas Notified Time Sodium Potassium Chloride Carbon Dioxide Anion Gap BUN Creatinine Est GFR ( Amer) Est GFR (Non-Af Amer) POC Glucose (mg/dL) 107 Random Glucose Lactic Acid Calcium Phosphorus Magnesium Total Bilirubin AST ALT Alkaline Phosphatase Total Creatine Kinase 61 CK-MB (Mass) 1.33 Troponin I < 0.0120 NT-Pro-B Natriuret Pep Total Protein Albumin Globulin Albumin/Globulin Ratio Arterial Blood Potassium Influenza Typ A,B (EIA) Negative for flu a/b 02/10/18 02/10/18 02/10/18 19:27 19:45 20:36 WBC RBC Hgb Hct MCV MCH MCHC RDW Plt Count MPV Neut % (Auto) Lymph % (Auto) [place] % (Auto) Eos % (Auto) Baso % (Auto) Neut # (Auto) Lymph # (Auto) [place] # (Auto) Eos # (Auto) Baso # (Auto) Neutrophils % (Manual) Band Neutrophils % Lymphocytes % (Manual) Monocytes % (Manual) Platelet Estimate Large Platelets RBC Morphology Anisocytosis (manual) Puncture Site Rba pCO2 29 L pO2 99 HCO3 11.0 L ABG pH 7.14 L* ABG Total CO2 10.8 L ABG O2 Saturation 97.4 ABG Base Excess -17.8 L ABG Hemoglobin 11.7 ABG Carboxyhemoglobin 1.4 POC ABG HHb (Measured) 2.5 ABG Methemoglobin 0.6 Tab Test Na ABG Potassium A-a O2 Difference 221.0 Respiratory Index 2.2 Hgb O2 Saturation 95.5 Glucose Lactate Vent Mode Bipap Mechanical Rate 8 FiO2 50.0 Inspiratory BiPAP 13 Expiratory BiPAP 5 Crit Value Called To Dr negin garcía Crit Value Called By [facility] Crit Value Read Back Y Blood Gas Notified Time 1948 Sodium 139 Potassium 4.6 Chloride 108 H Carbon Dioxide 20 L Anion Gap 16 BUN 17 Creatinine 1.2 Est GFR ( Amer) > 60 Est GFR (Non-Af Amer) > 60 POC Glucose (mg/dL) 130 H Random Glucose 145 H D Lactic Acid Calcium 7.5 L Phosphorus 7.3 H Magnesium 1.9 Total Bilirubin 1.3 AST 88 H D ALT 45 Alkaline Phosphatase 72 Total Creatine Kinase CK-MB (Mass) Troponin I NT-Pro-B Natriuret Pep Total Protein 5.8 L Albumin 3.0 L Globulin 2.9 Albumin/Globulin Ratio 1.0 Arterial Blood Potassium Influenza Typ A,B (EIA) 02/10/18 02/10/18 02/10/18 21:11 22:13 22:13 WBC 14.9 H RBC 3.96 L Hgb 12.8 Hct 39.7 MCV 100.4 H MCH 32.3 H MCHC 32.2 L RDW 13.9 Plt Count 159 MPV 9.9 Neut % (Auto) 91.9 H Lymph % (Auto) 4.9 L [place] % (Auto) 2.7 Eos % (Auto) 0.2 Baso % (Auto) 0.3 Neut # (Auto) 13.7 H Lymph # (Auto) 0.7 L [place] # (Auto) 0.4 Eos # (Auto) 0.0 Baso # (Auto) 0.0 Neutrophils % (Manual) 94 H Band Neutrophils % Lymphocytes % (Manual) 4 L Monocytes % (Manual) 2 Platelet Estimate Normal Large Platelets RBC Morphology Normal Anisocytosis (manual) Puncture Site pCO2 pO2 HCO3 ABG pH ABG Total CO2 ABG O2 Saturation ABG Base Excess ABG Hemoglobin ABG Carboxyhemoglobin POC ABG HHb (Measured) ABG Methemoglobin Tab Test ABG Potassium A-a O2 Difference Respiratory Index Hgb O2 Saturation Glucose Lactate Vent Mode Mechanical Rate FiO2 Inspiratory BiPAP Expiratory BiPAP Crit Value Called To Crit Value Called By Crit Value Read Back Blood Gas Notified Time Sodium Potassium Chloride Carbon Dioxide Anion Gap BUN Creatinine Est GFR ( Amer) Est GFR (Non-Af Amer) POC Glucose (mg/dL) 164 H Random Glucose Lactic Acid 5.8 H* Calcium Phosphorus Magnesium Total Bilirubin AST ALT Alkaline Phosphatase Total Creatine Kinase CK-MB (Mass) Troponin I NT-Pro-B Natriuret Pep Total Protein Albumin Globulin Albumin/Globulin Ratio Arterial Blood Potassium Influenza Typ A,B (EIA) 02/11/18 02/11/18 02/11/18 05:12 05:55 05:55 WBC 14.3 H RBC 3.70 L Hgb 12.3 Hct 36.1 MCV 97.8 H D MCH 33.2 H MCHC 34.0 RDW 13.9 Plt Count 142 MPV 9.6 Neut % (Auto) 93.4 H Lymph % (Auto) 3.6 L [place] % (Auto) 2.7 Eos % (Auto) 0.0 Baso % (Auto) 0.3 Neut # (Auto) 13.4 H Lymph # (Auto) 0.5 L [place] # (Auto) 0.4 Eos # (Auto) 0.0 Baso # (Auto) 0.0 Neutrophils % (Manual) 93 H Band Neutrophils % 3 H Lymphocytes % (Manual) 3 L Monocytes % (Manual) 1 Platelet Estimate Normal Large Platelets RBC Morphology Normal Anisocytosis (manual) Puncture Site Rb pCO2 40 pO2 84 HCO3 28.2 H ABG pH 7.46 H ABG Total CO2 29.6 H ABG O2 Saturation 97.8 ABG Base Excess 4.2 H ABG Hemoglobin ABG Carboxyhemoglobin POC ABG HHb (Measured) ABG Methemoglobin Tab Test Na ABG Potassium 3.6 A-a O2 Difference 294.0 Respiratory Index 3.5 Hgb O2 Saturation Glucose 165 H Lactate 0.9 Vent Mode Bipap Mechanical Rate FiO2 60.0 Inspiratory BiPAP 13 Expiratory BiPAP 5 Crit Value Called To Crit Value Called By Crit Value Read Back Blood Gas Notified Time Sodium 139.0 136 Potassium 3.7 Chloride 106.0 103 Carbon Dioxide 28 Anion Gap 10 BUN 22 H Creatinine 0.6 L Est GFR ( Amer) > 60 Est GFR (Non-Af Amer) > 60 POC Glucose (mg/dL) Random Glucose 163 H Lactic Acid Calcium 8.0 L Phosphorus 3.4 Magnesium 1.8 Total Bilirubin 0.5 AST 240 H D ALT 125 H D Alkaline Phosphatase 92 Total Creatine Kinase CK-MB (Mass) Troponin I NT-Pro-B Natriuret Pep Total Protein 6.4 Albumin 3.2 L Globulin 3.2 Albumin/Globulin Ratio 1.0 Arterial Blood Potassium 3.6 Influenza Typ A,B (EIA) Radiology Impressions: Radiology Impressions Chest CT 02/10/18 05:02 Impression: No large central or segmental pulmonary embolus evident. Mild bibasilar atelectasis/infiltrates. Mild scattered mid to lower lung zone ground-glass infiltrates. Fluid within the distal esophagus may be related to gastroesophageal reflux. Limited visualization of the upper abdomen reveals hepatomegaly. Hepatic steatosis. Bilateral adrenal gland hypertrophy. Preliminary impression was provided by [facility]. Chest X-Ray 02/10/18 18:12 IMPRESSION: Linear atelectasis right costophrenic sulcus with remaining lung goldstein clear. No interval pulmonary vascular congestion appreciable. EKG/Cardiology Studies: Cardiology / EKG Studies 02/10/18 18:29 EKG [ELECTROCARDIOGRAM] Stat Comment: Mode Of Transportation: Reason For Exam: r/o NE Fingerstick Blood Sugar Results: 164 Review of Systems - Review of Systems Review of Systems: 12 point ROS obtained and noted as in HPI Critical Care Progress Note - Nutrition Nutrition: Nutrition Category Date Time Status Consistent Carbohydrate [DIET] Diets 02/10/18 Breakfast Active Assessment/Plan - Assessment and Plan (Free Text) Assessment: Patient is a 52 year old male with a PMHx of hypertension, diabetes, HLD, PVD, asthma/COPD, and anxiety with recent diagnosis of Sq cell laryngeal cancer, had been seen by Dr. Wu and plan to start chemo. Admitted to ICU for sob with wheezing and suspected stridor with tachycardia. Neuro AAOx3 Pulm COPD exacerbation: Duoneb/Pulmicort/Solumedrol Ceftriaxone/Doxy CV Held CCB verapamil in the setting of hypotension Normotensive currently Crestor held in setting of elevated LFTS Plavix for stents in extremities Endo ACHS; Lantus/Novolog; Patient states he no longer takes insulin because his sugars at home <200s. Renal MV+Thiamine+Folate- EToh use disorder ID Doxycycline + Ceftriaxone DVT ppx: Lovenox GI ppx: Not indicated at this time Medical Management d/w Dr. Blair PGY-1 Mele Gannon
--- NOTE | 2018-02-11 13:02 | CP.PCM.CON ---
History of Present Illness - History of Present Illness History of Present Illness: 52 years old gentleman with history of hypertension diabetes and chronic obstructive urinary disease. 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 At this time he was admitted with shortness of breath and tachycardia with questionable stridor and a laryngeal mass. He was noted to have tachycardia with multifocal atrial tachycardia and frequent APCs. 2 weeks ago, he had an echocardiogram with normal left ventricular contractility no pulmonary hypertension and an ejection fraction of 65%. From a cardiac viewpoint adequate oxygenation should be maintained for treatment of tachycardia sinus or atrial. Poor overall prognosis with supportive care.Hx of PAD post multiple intervention and bilerteral leg amputation Review of Systems - Review of Systems Systems not reviewed;Unavailable: Acuity of Condition - Constitutional Constitutional: Anorexia, Weakness - EENT Eyes: absent: Discharge Ears: absent: Ear Discharge, Dizziness Nose/Mouth/Throat: absent: Epistaxis - Cardiovascular Cardiovascular: absent: Acrocyanosis, Chest Pain, Diaphoresis, Syncope - Respiratory Respiratory: absent: Dyspnea, Hemoptysis - Gastrointestinal Gastrointestinal: absent: Abdominal Pain, Diarrhea, Vomiting - Genitourinary Genitourinary: absent: Change in Urinary Stream Past Patient History - Infectious Disease Hx of Infectious Diseases: None - Past Medical History & Family History Past Medical History?: Yes - Past Social History Smoking Status: Heavy Smoker > 10 Cigarettes Daily - CARDIAC Hx Cardiac Disorders: Yes Hx Hypercholesterolemia: Yes Hx Hypertension: Yes - PULMONARY Hx Chronic Obstructive Pulmonary Disease (COPD): Yes - NEUROLOGICAL Hx Neurological Disorder: No - HEENT Hx HEENT Problems: No - RENAL Hx Chronic Kidney Disease: No - ENDOCRINE/METABOLIC Hx Diabetes Mellitus Type 1: Yes - HEMATOLOGICAL/ONCOLOGICAL Hx Blood Disorders: No - INTEGUMENTARY Hx Dermatological Problems: Yes Other/Comment: PT HAS BROWN SPOTS ON ARMS AND BACK 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 - MUSCULOSKELETAL/RHEUMATOLOGICAL Hx Musculoskeletal Disorders: No Hx Falls: No - GASTROINTESTINAL Hx Gastrointestinal Disorders: Yes Hx Diverticulitis: Yes Hx Gastritis: Yes - GENITOURINARY/GYNECOLOGICAL Hx Genitourinary Disorders: Yes Hx Urinary Tract Infection: Yes Other/Comment: PT STATES HE HAS BROWN URINE AND SOME FECAL MATERIAL IN HIS URINE. - PSYCHIATRIC Hx Psychophysiologic Disorder: Yes Hx Anxiety: Yes Hx Depression: Yes Hx Substance Use: Yes (WEEDS) - SURGICAL HISTORY Hx Surgeries: Yes Hx Amputation: Yes (LEFT aKA R BKA) Hx Angiogram: Yes Hx Cardiac Catheterization: Yes Hx Femoral-Popliteal Bypass Graft: Yes (X 3) Hx Vascular Surgery: Yes Other/Comment: Vascular bypass surgery femoral bilateral 2012,LT. BELOW KNEE AMPUTATION, right 5th toe amputation - ANESTHESIA Hx Anesthesia: Yes Hx Anesthesia Reactions: No Hx Malignant Hyperthermia: No Meds Allergies/Adverse Reactions: Allergies Allergy/AdvReac Type Severity Reaction Status Date / Time No Known Allergies Allergy Verified 02/10/18 02:02 - Medications Medications: Current Medications Acetaminophen (Tylenol 325mg Tab) 650 mg PO ONCE PRN PRN Reason: Pain, Mild (1-3) Last Admin: 02/11/18 09:40 Dose: 650 mg Albuterol/Ipratropium (Duoneb 3 Mg/0.5 Mg (3 Ml) Ud) 3 ml INH RQ6 [facility] Last Admin: 02/11/18 07:03 Dose: 3 ml Budesonide (Pulmicort Respules) 0.5 mg INH RQ12 [facility] Last Admin: 02/11/18 07:03 Dose: 0.5 mg Clopidogrel Bisulfate (Plavix) 75 mg PO DAILY [facility] Last Admin: 02/11/18 09:34 Dose: 75 mg Dextrose (Dextrose 50% Inj) 0 ml IV STAT PRN; Protocol PRN Reason: Hypoglycemia Protocol Dextrose (Glutose 15) 0 gm PO ONCE PRN; Protocol PRN Reason: Hypoglycemia Protocol Enoxaparin Sodium (Lovenox) 40 mg SC DAILY [facility] Last Admin: 02/11/18 09:37 Dose: Not Given Folic Acid (Folic Acid) 1 mg PO DAILY [facility] Last Admin: 02/11/18 09:28 Dose: 1 mg Glucagon (Glucagen Diagnostic Kit) 0 mg IM STAT PRN; Protocol PRN Reason: Hypoglycemia Protocol Dextrose (Dextrose 5% In Water 1000 Ml) 1,000 mls @ 0 mls/hr IV .Q0M PRN; Protocol PRN Reason: Hypoglycemia Protocol Doxycycline Hyclate 100 mg/ (Sodium Chloride) 100 mls @ 100 mls/hr IVPB Q12H [facility]; Protocol Last Admin: 02/11/18 09:29 Dose: 100 mls/hr Ceftriaxone Sodium 1 gm/ (Sodium Chloride) 100 mls @ 100 mls/hr IVPB DAILY [facility]; Protocol Last Admin: 02/11/18 09:29 Dose: 100 mls/hr Insulin Aspart (Novolog) 0 unit SC ACHS [facility]; Protocol Last Admin: 02/11/18 07:39 Dose: Not Given Insulin Glargine (Lantus) 30 unit SC DAILY [facility] Last Admin: 02/11/18 09:38 Dose: Not Given Methylprednisolone (Solu-Medrol) 40 mg IVP Q6 [facility] Last Admin: 02/11/18 05:43 Dose: 40 mg Multivitamins (Hexavitamin) 1 tab PO DAILY [facility] Last Admin: 02/11/18 09:28 Dose: 1 tab Rosuvastatin Calcium (Crestor) 5 mg PO HS [facility] Last Admin: 02/10/18 22:20 Dose: Not Given Thiamine HCl (Vitamin B1 Tab) 100 mg PO DAILY [facility] Last Admin: 02/11/18 09:28 Dose: 100 mg Physical Exam - Constitutional Appears: Non-toxic - Head Exam Head Exam: ATRAUMATIC - Eye Exam Eye Exam: EOMI - ENT Exam ENT Exam: Mucous Membranes Moist - Neck Exam Neck exam: Negative for: Lymphadenopathy, Thyromegaly - Respiratory Exam Respiratory Exam: Clear to Auscultation Bilateral. absent: Chest Wall Te nderness, Wheezes, Stridor - Cardiovascular Exam Cardiovascular Exam: REGULAR RHYTHM, Systolic Murmur - GI/Abdominal Exam GI & Abdominal Exam: Normal Bowel Sounds. absent: Organomegaly - Rectal Exam Rectal Exam: Deferred - Extremities Exam Additional comments: bilateral amputation - Neurological Exam Neurological exam: Alert, Oriented x3 - Psychiatric Exam Psychiatric exam: Normal Mood - Skin Skin Exam: Dry Results - Vital Signs Recent Vital Signs: Last Vital Signs Temp 97.5 F L 02/11/18 08:00 Pulse 84 02/11/18 11:00 Resp 20 02/11/18 11:00 BP 124/79 02/11/18 11:00 Pulse Ox 99 02/11/18 11:00 - Labs Result Diagrams: 02/11/18 05:55 02/11/18 05:55 Labs: Laboratory Results - last 24 hr 02/10/18 02/10/18 02/10/18 11:09 12:48 16:14 WBC RBC Hgb Hct MCV MCH MCHC RDW Plt Count MPV Neut % (Auto) Lymph % (Auto) [place] % (Auto) Eos % (Auto) Baso % (Auto) Neut # (Auto) Lymph # (Auto) [place] # (Auto) Eos # (Auto) Baso # (Auto) Neutrophils % (Manual) Band Neutrophils % Lymphocytes % (Manual) Monocytes % (Manual) Platelet Estimate RBC Morphology Puncture Site pCO2 pO2 HCO3 ABG pH ABG Total CO2 ABG O2 Saturation ABG Base Excess ABG Hemoglobin ABG Carboxyhemoglobin POC ABG HHb (Measured) ABG Methemoglobin Tab Test ABG Potassium A-a O2 Difference Respiratory Index Hgb O2 Saturation Glucose Lactate Vent Mode Mechanical Rate FiO2 Inspiratory BiPAP Expiratory BiPAP Crit Value Called To Crit Value Called By Crit Value Read Back Blood Gas Notified Time Sodium Potassium Chloride Carbon Dioxide Anion Gap BUN Creatinine Est GFR ( Amer) Est GFR (Non-Af Amer) POC Glucose (mg/dL) 265 H 107 Random Glucose Lactic Acid Calcium Phosphorus Magnesium Total Bilirubin AST ALT Alkaline Phosphatase Total Creatine Kinase CK-MB (Mass) Troponin I Total Protein Albumin Globulin Albumin/Globulin Ratio Arterial Blood Potassium C. difficile Ag & Toxin Influenza Typ A,B (EIA) Negative for flu a/b 02/10/18 02/10/18 02/10/18 18:43 19:27 19:45 WBC RBC Hgb Hct MCV MCH MCHC RDW Plt Count MPV Neut % (Auto) Lymph % (Auto) [place] % (Auto) Eos % (Auto) Baso % (Auto) Neut # (Auto) Lymph # (Auto) [place] # (Auto) Eos # (Auto) Baso # (Auto) Neutrophils % (Manual) Band Neutrophils % Lymphocytes % (Manual) Monocytes % (Manual) Platelet Estimate RBC Morphology Puncture Site Rba pCO2 29 L pO2 99 HCO3 11.0 L ABG pH 7.14 L* ABG Total CO2 10.8 L ABG O2 Saturation 97.4 ABG Base Excess -17.8 L ABG Hemoglobin 11.7 ABG Carboxyhemoglobin 1.4 POC ABG HHb (Measured) 2.5 ABG Methemoglobin 0.6 Tab Test Na ABG Potassium A-a O2 Difference 221.0 Respiratory Index 2.2 Hgb O2 Saturation 95.5 Glucose Lactate Vent Mode Bipap Mechanical Rate 8 FiO2 50.0 Inspiratory BiPAP 13 Expiratory BiPAP 5 Crit Value Called To Dr negin garcía Crit Value Called By Darrel rt Crit Value Read Back Y Blood Gas Notified Time 1948 Sodium Potassium Chloride Carbon Dioxide Anion Gap BUN Creatinine Est GFR ( Amer) Est GFR (Non-Af Amer) POC Glucose (mg/dL) 130 H Random Glucose Lactic Acid Calcium Phosphorus Magnesium Total Bilirubin AST ALT Alkaline Phosphatase Total Creatine Kinase 61 CK-MB (Mass) 1.33 Troponin I < 0.0120 Total Protein Albumin Globulin Albumin/Globulin Ratio Arterial Blood Potassium C. difficile Ag & Toxin Influenza Typ A,B (EIA) 02/10/18 02/10/18 02/10/18 20:36 21:11 22:13 WBC 14.9 H RBC 3.96 L Hgb 12.8 Hct 39.7 MCV 100.4 H MCH 32.3 H MCHC 32.2 L RDW 13.9 Plt Count 159 MPV 9.9 Neut % (Auto) 91.9 H Lymph % (Auto) 4.9 L [place] % (Auto) 2.7 Eos % (Auto) 0.2 Baso % (Auto) 0.3 Neut # (Auto) 13.7 H Lymph # (Auto) 0.7 L [place] # (Auto) 0.4 Eos # (Auto) 0.0 Baso # (Auto) 0.0 Neutrophils % (Manual) 94 H Band Neutrophils % Lymphocytes % (Manual) 4 L Monocytes % (Manual) 2 Platelet Estimate Normal RBC Morphology Normal Puncture Site pCO2 pO2 HCO3 ABG pH ABG Total CO2 ABG O2 Saturation ABG Base Excess ABG Hemoglobin ABG Carboxyhemoglobin POC ABG HHb (Measured) ABG Methemoglobin Tab Test ABG Potassium A-a O2 Difference Respiratory Index Hgb O2 Saturation Glucose Lactate Vent Mode Mechanical Rate FiO2 Inspiratory BiPAP Expiratory BiPAP Crit Value Called To Crit Value Called By Crit Value Read Back Blood Gas Notified Time Sodium 139 Potassium 4.6 Chloride 108 H Carbon Dioxide 20 L Anion Gap 16 BUN 17 Creatinine 1.2 Est GFR ( Amer) > 60 Est GFR (Non-Af Amer) > 60 POC Glucose (mg/dL) 164 H Random Glucose 145 H D Lactic Acid Calcium 7.5 L Phosphorus 7.3 H Magnesium 1.9 Total Bilirubin 1.3 AST 88 H D ALT 45 Alkaline Phosphatase 72 Total Creatine Kinase CK-MB (Mass) Troponin I Total Protein 5.8 L Albumin 3.0 L Globulin 2.9 Albumin/Globulin Ratio 1.0 Arterial Blood Potassium C. difficile Ag & Toxin Influenza Typ A,B (EIA) 02/10/18 02/10/18 02/11/18 22:13 22:13 05:12 WBC RBC Hgb Hct MCV MCH MCHC RDW Plt Count MPV Neut % (Auto) Lymph % (Auto) [place] % (Auto) Eos % (Auto) Baso % (Auto) Neut # (Auto) Lymph # (Auto) [place] # (Auto) Eos # (Auto) Baso # (Auto) Neutrophils % (Manual) Band Neutrophils % Lymphocytes % (Manual) Monocytes % (Manual) Platelet Estimate RBC Morphology Puncture Site Rb pCO2 40 pO2 84 HCO3 28.2 H ABG pH 7.46 H ABG Total CO2 29.6 H ABG O2 Saturation 97.8 ABG Base Excess 4.2 H ABG Hemoglobin ABG Carboxyhemoglobin POC ABG HHb (Measured) ABG Methemoglobin Tab Test Na ABG Potassium 3.6 A-a O2 Difference 294.0 Respiratory Index 3.5 Hgb O2 Saturation Glucose 165 H Lactate 0.9 Vent Mode Bipap Mechanical Rate FiO2 60.0 Inspiratory BiPAP 13 Expiratory BiPAP 5 Crit Value Called To Crit Value Called By Crit Value Read Back Blood Gas Notified Time Sodium 139.0 Potassium Chloride 106.0 Carbon Dioxide Anion Gap BUN Creatinine Est GFR ( Amer) Est GFR (Non-Af Amer) POC Glucose (mg/dL) Random Glucose Lactic Acid 5.8 H* Calcium Phosphorus Magnesium Total Bilirubin AST ALT Alkaline Phosphatase Total Creatine Kinase CK-MB (Mass) Troponin I Total Protein Albumin Globulin Albumin/Globulin Ratio Arterial Blood Potassium 3.6 C. difficile Ag & Toxin Negative Influenza Typ A,B (EIA) 02/11/18 02/11/18 05:55 05:55 WBC 14.3 H RBC 3.70 L Hgb 12.3 Hct 36.1 MCV 97.8 H D MCH 33.2 H MCHC 34.0 RDW 13.9 Plt Count 142 MPV 9.6 Neut % (Auto) 93.4 H Lymph % (Auto) 3.6 L [place] % (Auto) 2.7 Eos % (Auto) 0.0 Baso % (Auto) 0.3 Neut # (Auto) 13.4 H Lymph # (Auto) 0.5 L [place] # (Auto) 0.4 Eos # (Auto) 0.0 Baso # (Auto) 0.0 Neutrophils % (Manual) 93 H Band Neutrophils % 3 H Lymphocytes % (Manual) 3 L Monocytes % (Manual) 1 Platelet Estimate Normal RBC Morphology Normal Puncture Site pCO2 pO2 HCO3 ABG pH ABG Total CO2 ABG O2 Saturation ABG Base Excess ABG Hemoglobin ABG Carboxyhemoglobin POC ABG HHb (Measured) ABG Methemoglobin Tab Test ABG Potassium A-a O2 Difference Respiratory Index Hgb O2 Saturation Glucose Lactate Vent Mode Mechanical Rate FiO2 Inspiratory BiPAP Expiratory BiPAP Crit Value Called To Crit Value Called By Crit Value Read Back Blood Gas Notified Time Sodium 136 Potassium 3.7 Chloride 103 Carbon Dioxide 28 Anion Gap 10 BUN 22 H Creatinine 0.6 L Est GFR ( Amer) > 60 Est GFR (Non-Af Amer) > 60 POC Glucose (mg/dL) Random Glucose 163 H Lactic Acid Calcium 8.0 L Phosphorus 3.4 Magnesium 1.8 Total Bilirubin 0.5 AST 240 H D ALT 125 H D Alkaline Phosphatase 92 Total Creatine Kinase CK-MB (Mass) Troponin I Total Protein 6.4 Albumin 3.2 L Globulin 3.2 Albumin/Globulin Ratio 1.0 Arterial Blood Potassium C. difficile Ag & Toxin Influenza Typ A,B (EIA) Assessment & Plan (1) Chr obstructive pulmonary disease w/ acute lower respiratory infxn Status: Acute (2) Pharyngeal cancer Status: Acute (3) Rapid atrial fibrillation Status: Acute Comment: Likely multifocal atrial tachycardia needs adequate oxygenation.
[2018-02-11] MEDS ORDERED: Oxycodone/Acetaminophen 5/325 mg Tab PO ONE (13:30)
--- NOTE | 2018-02-11 13:33 | CT ---
Date of service: 02/10/2018 PROCEDURE: CT NECK WITH CONTRAST HISTORY: sob, lingual sq cell ca COMPARISON: Neck CT with contrast 01/20/2018. TECHNIQUE: CT of the neck with intravenous contrast. Coronal and sagittal reformats generated. Intravenous contrast dose: Visipaque 320, 100 cc Radiation dose: Total exam DLP = 471.17 mGy-cm. This CT exam was performed using one or more of the following dose reduction techniques: Automated exposure control, adjustment of the mA and/or kV according to patient size, and/or use of iterative reconstruction technique. FINDINGS: The nasopharynx is unremarkable. 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 The attenuation differences on the basis of somewhat earlier arterial venous phase of iodinated contrast enhancement compared to the prior exam. Less likely is post chemotherapy affect or other potential intrinsic physiologic change. Enhancement is also appreciated and chronic lymph node level IIB right jugular digastric lymph node chain measuring 1.3 x 1.7 x 2.0 cm, not dramatically changed in size in the interval. The mass extends caudad into the bilateral oropharynx, epiglottis and right aryepiglottic fold once again. Involvement of the right vocal cord is not excluded. The remainder of the suprahyoid neck appears stable. The airway through the larynx narrows to 0.6 x 1.2 cm as compared to 0.7 x 1.1 cm previously (level of the false vocal cords). GLANDS: Parotid and submandibular glands unremarkable. Normal size thyroid gland, without nodule. CERVICAL SPINE: No fracture or focal lesion. VASCULAR STRUCTURES: Unremarkable. OTHER FINDINGS: None. IMPRESSION: Stable appearing lingual carcinoma as described above also extending inferiorly into the bilateral oropharynx, glottis and potentially right vocal cord. Necrotic lymph node stable at the right jugular digastric change superiorly. No definite pattern suggests interval extension of prior mass or increased lymphadenopathy. Stable mild narrowing of the laryngeal airway at the level of the false vocal cords. Continued clinical and CT vigilance is advised. Again, PET CT is available follow-up if clinically warranted.
[2018-02-11] MEDS ORDERED: Oxycodone/Acetaminophen 5/325 mg Tab ONE (13:40)
[2018-02-11] MEDS: Oxycodone/Acetaminophen 5/325 mg Tab PO PRN (18:29)
--- NOTE | 2018-02-11 18:33 | CARD ---
APPROVED REPORT Date of service: 02/10/2018 EKG Measurement Heart [id number] <Conclusion> Sinus bradycardia Otherwise normal ECG
--- NOTE | 2018-02-11 18:35 | CARD ---
APPROVED REPORT Date of service: 02/10/2018 EKG Measurement Heart [id number] <Conclusion> Atrial fibrillation with rapid ventricular response reverting to sinus tachycardia Nonspecific T wave abnormality Abnormal ECG
[2018-02-11] MEDS ORDERED: Tramadol 25 mg ONE (21:27)
--- NOTE | 2018-02-11 23:05 | CP.PCM.HP ---
Past Patient History - Infectious Disease Hx of Infectious Diseases: None - Past Medical History & Family History Past Medical History?: Yes - Past Social History Smoking Status: Heavy Smoker > 10 Cigarettes Daily - CARDIAC Hx Cardiac Disorders: Yes Hx Hypercholesterolemia: Yes Hx Hypertension: Yes - PULMONARY Hx Chronic Obstructive Pulmonary Disease (COPD): Yes - NEUROLOGICAL Hx Neurological Disorder: No - HEENT Hx HEENT Problems: No - RENAL Hx Chronic Kidney Disease: No - ENDOCRINE/METABOLIC Hx Diabetes Mellitus Type 1: Yes - HEMATOLOGICAL/ONCOLOGICAL Hx Blood Disorders: No - INTEGUMENTARY Hx Dermatological Problems: Yes Other/Comment: PT HAS BROWN SPOTS ON ARMS AND BACK 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 - MUSCULOSKELETAL/RHEUMATOLOGICAL Hx Musculoskeletal Disorders: No Hx Falls: No - GASTROINTESTINAL Hx Gastrointestinal Disorders: Yes Hx Diverticulitis: Yes Hx Gastritis: Yes - GENITOURINARY/GYNECOLOGICAL Hx Genitourinary Disorders: Yes Hx Urinary Tract Infection: Yes Other/Comment: PT STATES HE HAS BROWN URINE AND SOME FECAL MATERIAL IN HIS URINE. - PSYCHIATRIC Hx Psychophysiologic Disorder: Yes Hx Anxiety: Yes Hx Depression: Yes Hx Substance Use: Yes (WEEDS) - SURGICAL HISTORY Hx Surgeries: Yes Hx Amputation: Yes (LEFT aKA R BKA) Hx Angiogram: Yes Hx Cardiac Catheterization: Yes Hx Femoral-Popliteal Bypass Graft: Yes (X 3) Hx Vascular Surgery: Yes Other/Comment: Vascular bypass surgery femoral bilateral 2011,LT. BELOW KNEE AMPUTATION, right 5th toe amputation - ANESTHESIA Hx Anesthesia: Yes Hx Anesthesia Reactions: No Hx Malignant Hyperthermia: No Meds Allergies/Adverse Reactions: Allergies Allergy/AdvReac Type Severity Reaction Status Date / Time No Known Allergies Allergy Verified 02/10/18 02:02 Results - Vital Signs Recent Vital Signs: Last Vital Signs Temp 98.5 F 02/11/18 20:00 Pulse 92 H 02/11/18 22:00 Resp 19 02/11/18 22:00 BP 138/81 02/11/18 21:15 Pulse Ox 98 02/11/18 22:00 - Labs Result Diagrams: 02/11/18 05:55 02/11/18 05:55 Labs: Laboratory Results - last 24 hr 02/10/18 02/11/18 02/11/18 22:13 05:12 05:55 WBC 14.3 H RBC 3.70 L Hgb 12.3 Hct 36.1 MCV 97.8 H D MCH 33.2 H MCHC 34.0 RDW 13.9 Plt Count 142 MPV 9.6 Neut % (Auto) 93.4 H Lymph % (Auto) 3.6 L [place] % (Auto) 2.7 Eos % (Auto) 0.0 Baso % (Auto) 0.3 Neut # (Auto) 13.4 H Lymph # (Auto) 0.5 L [place] # (Auto) 0.4 Eos # (Auto) 0.0 Baso # (Auto) 0.0 Neutrophils % (Manual) 93 H Band Neutrophils % 3 H Lymphocytes % (Manual) 3 L Monocytes % (Manual) 1 Platelet Estimate Normal RBC Morphology Normal Puncture Site Rb pCO2 40 pO2 84 HCO3 28.2 H ABG pH 7.46 H ABG Total CO2 29.6 H ABG O2 Saturation 97.8 ABG Base Excess 4.2 H Tab Test Na ABG Potassium 3.6 A-a O2 Difference 294.0 Respiratory Index 3.5 Sodium 139.0 Chloride 106.0 Glucose 165 H Lactate 0.9 Vent Mode Bipap FiO2 60.0 Inspiratory BiPAP 13 Expiratory BiPAP 5 Potassium Carbon Dioxide Anion Gap BUN Creatinine Est GFR ( Amer) Est GFR (Non-Af Amer) POC Glucose (mg/dL) Random Glucose Calcium Phosphorus Magnesium Total Bilirubin AST ALT Alkaline Phosphatase Total Protein Albumin Globulin Albumin/Globulin Ratio Arterial Blood Potassium 3.6 C. difficile Ag & Toxin Negative 02/11/18 02/11/18 02/11/18 05:55 07:22 11:04 WBC RBC Hgb Hct MCV MCH MCHC RDW Plt Count MPV Neut % (Auto) Lymph % (Auto) [place] % (Auto) Eos % (Auto) Baso % (Auto) Neut # (Auto) Lymph # (Auto) [place] # (Auto) Eos # (Auto) Baso # (Auto) Neutrophils % (Manual) Band Neutrophils % Lymphocytes % (Manual) Monocytes % (Manual) Platelet Estimate RBC Morphology Puncture Site pCO2 pO2 HCO3 ABG pH ABG Total CO2 ABG O2 Saturation ABG Base Excess Tab Test ABG Potassium A-a O2 Difference Respiratory Index Sodium 136 Chloride 103 Glucose Lactate Vent Mode FiO2 Inspiratory BiPAP Expiratory BiPAP Potassium 3.7 Carbon Dioxide 28 Anion Gap 10 BUN 22 H Creatinine 0.6 L Est GFR ( Amer) > 60 Est GFR (Non-Af Amer) > 60 POC Glucose (mg/dL) 147 H 249 H Random Glucose 163 H Calcium 8.0 L Phosphorus 3.4 Magnesium 1.8 Total Bilirubin 0.5 AST 240 H D ALT 125 H D Alkaline Phosphatase 92 Total Protein 6.4 Albumin 3.2 L Globulin 3.2 Albumin/Globulin Ratio 1.0 Arterial Blood Potassium C. difficile Ag & Toxin 02/11/18 02/11/18 16:12 21:41 WBC RBC Hgb Hct MCV MCH MCHC RDW Plt Count MPV Neut % (Auto) Lymph % (Auto) [place] % (Auto) Eos % (Auto) Baso % (Auto) Neut # (Auto) Lymph # (Auto) [place] # (Auto) Eos # (Auto) Baso # (Auto) Neutrophils % (Manual) Band Neutrophils % Lymphocytes % (Manual) Monocytes % (Manual) Platelet Estimate RBC Morphology Puncture Site pCO2 pO2 HCO3 ABG pH ABG Total CO2 ABG O2 Saturation ABG Base Excess Tab Test ABG Potassium A-a O2 Difference Respiratory Index Sodium Chloride Glucose Lactate Vent Mode FiO2 Inspiratory BiPAP Expiratory BiPAP Potassium Carbon Dioxide Anion Gap BUN Creatinine Est GFR ( Amer) Est GFR (Non-Af Amer) POC Glucose (mg/dL) 188 H 201 H Random Glucose Calcium Phosphorus Magnesium Total Bilirubin AST ALT Alkaline Phosphatase Total Protein Albumin Globulin Albumin/Globulin Ratio Arterial Blood Potassium C. difficile Ag & Toxin
[2018-02-12] MEDS: Oxycodone/Acetaminophen 5/325 mg Tab PO PRN ×4 (00:50→21:59)
[2018-02-12] MEDS: Albuterol-Ipratrop 3 mg / 0.5 (3 ml) UD INH SCH ×3 (02:19→14:42)
--- NOTE | 2018-02-12 03:01 | HP ---
CHIEF COMPLAINT: Shortness of breath x1 week, worse over the last few hours. HISTORY OF PRESENT ILLNESS: This is a 52-year-old male, well known to me, with a history of chronic heavy smoker, COPD, recently diagnosed throat cancer, being followed up by Oncology, and he is for possible chemotherapy once his PET scan is done. He has a history of diabetes, hypertension, hyperlipidemia, and he has bilateral lower extremity amputation, developed peripheral arterial disease. The patient has been noticing for the last one week changes in his voice. Along with that, he is having cough, congestion and on the day of admission, he felt extreme shortness of breath, and he felt anxious. He felt as if he is drowning. The patient for the last three days is also complaining of dry cough. Initially, there was a possibility of stridor in the ER. The patient was placed on BiPAP, steroids, and nebulizer treatment. He was tachycardiac in the beginning, but later on the patient improved. He has been drinking and smoking despite recent diagnosis in the ER. He was started on Cardizem drip to control his heart rate. The patient was evaluated by the ICU, and the patient was transferred to ICU. The patient is complaining of cough, congestion, shortness of breath, wheezing, thick white sputum production which is , and he feels fever and chills. He has generalized weakness and he is anxious. He has voice changes. He denies any abdominal pain, nausea, vomiting or diarrhea. He denies any polyuria, polydipsia or polyphagia. He denies any history of hematuria or pyuria. He denies any sneezing. He has rhinorrhea. He has body ache. He has bilateral below-knee amputation. PAST MEDICAL HISTORY: COPD, type 2 diabetes, hypertension, hyperlipidemia, bilateral below-knee amputation. He is status post right superficial femoral artery stenting in 01/2017, left above-knee amputation in 07/2015. He also has history of repair of colovesical fistula in 11/2015, and he has a history of lower extremity bypass. ALLERGIES: UNKNOWN ALLERGIES. SOCIAL HISTORY: He smokes and he drinks heavily. He uses marijuana occasionally. CURRENT MEDICATIONS: Tylenol, NovoLog, Neurontin, Plavix, Coreg, Zofran, multivitamins, Cozaar, Lidoderm, Atrovent HFA, Lantus, Senokot, Crestor, thiamine, and Ambien. PHYSICAL EXAMINATION: GENERAL: An elderly middle-aged male, in distress. VITAL SIGNS: Blood pressure 125/60, pulse 90, respiratory rate 23, and temperature 98. SKIN: Dry. No bruises. No purpura. No petechiae. HEENT: Atraumatic and normocephalic. Negative pallor. Negative jaundice. Extraocular movements are intact. The patient has oral cavity. Has a mass in the right tonsillar fossa with no thrush. Normal teeth. NECK: Supple. No JVD. No lymph node. No thyromegaly. No carotid bruits. CHEST WALL: Bilateral symmetrical expansion. No tenderness. No deformity. LUNGS: Bilateral inspiratory and expiratory respiratory rhonchi. Decreased air entry. CARDIOVASCULAR SYSTEM: PMI in the fifth intercostal space. S1 and S2 are regular. No heave. No thrill. ABDOMEN: Soft, nontender. Bowel sounds are positive. RECTAL: Normal. EXTREMITIES: No clubbing, cyanosis, or edema. CENTRAL NERVOUS SYSTEM: Awake, alert, and oriented x3. Cranial nerves II through XII are normal. Power 5/5 x4. Plantars are downgoing. IMPRESSION: 1. Acute exacerbation of chronic obstructive pulmonary disease. Rule out laryngeal obstruction due to malignancy. 2. Tracheobronchitis, rule out pneumonia. 3. Type 2 diabetes. 4. Chronic obstructive pulmonary disease. 5. Peripheral arterial disease, status post bilateral below-knee amputation. PLAN: Admit. Detailed orders are written. Seen and examined. The patient is in ICU and he is being seen by ICU team. Jagdeep Lee MD
[2018-02-12] MEDS: MethylPREDNISolone 40 mg Vial IVP SCH ×4 (05:39→17:33)
[2018-02-12 06:36] LABS: BASO % 0.1 % (0.0-2.0); HEMOGLOBIN 12.2 g/dL (12.0-18.0); LYMPH # 0.6 K/uL (1.0-4.3); LYMPH % 3.3 % (20.0-40.0); MEAN CELL VOLUME 100.1 fL (80.0-94.0); MEAN CORPUSCULAR HEMOGLOBIN 33.1 pg (27.0-31.0); MEAN CORPUSCULAR HGB CONC 33.1 g/dL (33.0-37.0); MEAN PLATELET VOLUME 10.3 fL (7.2-11.7); MONO # 0.5 K/uL (0.0-0.8); MONO % 2.9 % (0.0-10.0); NEUT # 16.7 K/uL (1.8-7.0); NEUT % 93.7 % (50.0-75.0); NRBC % 0.1 % (0.0-2.0); PLATELET COUNT 164 K/uL (130-400); RBC 3.67 Mil/uL (4.40-5.90); RED CELL DISTRIBUTION WIDTH 14.3 % (11.5-14.5); WHITE BLOOD COUNT 17.8 K/uL (4.8-10.8)
[2018-02-12 06:57] LABS: ALB/GLOB RATIO 1.1 (1.0-2.1); ALBUMIN 3.3 g/dL (3.5-5.0); ALT/SGPT 137 U/L (21-72); AST/SGOT 102 U/L (17-59); BLOOD UREA NITROGEN 25 mg/dL (9-20); CALCIUM 7.7 mg/dl (8.6-10.4); GFR NON-AFRICAN AMERICAN > 60
[2018-02-12] MEDS: Budesonide 0.5 mg/2 ml Inhal Susp UD INH SCH (07:30)
[2018-02-12] MEDS: (Novolog) Insulin Aspart, Recombinant 100 u/ml 10 ml vial SC SCH ×4 (08:23→22:01)
[2018-02-12 08:53] LABS: LYMPHOCYTE 3 % (20-40); MONOCYTE 2 % (0-10); NEUTROPHIL 95 % (50-75); PLATELET ESTIMATE NORMAL (NORMAL); TOTAL CELLS COUNTED 100
[2018-02-12] MEDS: Enoxaparin 40 mg Syringe SC SCH (09:41)
[2018-02-12] MEDS: Multiple Vitamins Tab PO SCH (09:42)
[2018-02-12] MEDS: (Lantus) Insulin Glargine, Recombinant SC SCH (09:43)
--- NOTE | 2018-02-12 17:30 | CP.CCUPN ---
<Mele Gannon - Last Filed: 02/12/18 17:21> CCU Subjective - Physician Review Subjective (Free Text): PGY-1 Critical Care Progress Note for Dr. Oliver's service Patient seen and examined at bedside. Patient offers no acute complaints. Patient denies fevers, chills, chest pain, sob, n/v, constipation or diarrhea, and dysuria. Patient downgraded to medical floor. CCU Objective - Vital Signs / Intake & Output Vital Signs (Last 4 hours): Vital Signs Temp Pulse Resp BP Pulse Ox 02/12/18 16:00 97.5 F L 94 H 14 98 02/12/18 15:00 99 H 10 L 100 02/12/18 14:16 101 H 27 H 135/109 H 77 L 02/12/18 14:15 95 H 14 79 L 02/12/18 14:00 91 H 20 93 L 02/12/18 13:50 93 H 18 140/82 97 Intake and Output (Last 8hrs): Intake & Output 02/12/18 02/12/18 02/12/18 06:59 14:59 22:59 Intake Total 200 920 150 Output Total 800 300 Balance -600 620 150 Weight 183 lb Intake: Intake, IV Amount 200 0 Left Hand 200 Right Hand 0 0 Oral 200 720 150 Output: Urine 800 300 Urine, Voided 800 300 Other: # Voids Urine, Voided 0 0 # Bowel Movements 0 0 0 - Physical Exam Head: Positive for: Atraumatic, Normocephalic Pupils: Positive for: PERRL Extroacular Muscles: Positive for: EOMI Conjunctiva: Positive for: Normal Mouth: Positive for: Moist Mucous Membranes Respiratory/Chest: Positive for: Clear to Auscultation, Good Air Exchange. Negative for: Respiratory Distress, Accessory Muscle Use, Wheezes Cardiovascular: Positive for: Regular Rate and Rhythm, Normal S1, S2. Negative for: Murmurs, Tachycardic Upper Extremity: Positive for: Normal Inspection. 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 Negative for: Edema Neurological: Positive for: GCS=15 Skin: Positive for: Warm, Normal Color Psychiatric: Positive for: Alert, Oriented x 3 - Medications Active Medications: Active Medications Generic Name Dose Route Start Last Admin Trade Name Freq PRN Reason Stop Dose Admin Acetaminophen 650 mg 02/10/18 13:48 02/11/18 09:40 Tylenol 325mg Tab PO 650 mg ONCE PRN Administration Pain, Mild (1-3) Albuterol/Ipratropium 3 ml 02/10/18 17:00 02/12/18 14:42 Duoneb 3 Mg/0.5 Mg (3 Ml) Ud INH 3 ml RQ6 MARCELL Administration Budesonide 0.5 mg 02/10/18 08:00 02/12/18 07:30 Pulmicort Respules INH 0.5 mg RQ12 MARCELL Administration Clopidogrel Bisulfate 75 mg 02/10/18 10:00 02/12/18 09:42 Plavix PO 75 mg DAILY MARCELL Administration Dextrose 0 ml 02/10/18 05:15 Dextrose 50% Inj IV STAT PRN Hypoglycemia Protocol Protocol Dextrose 0 gm 02/10/18 05:15 Glutose 15 PO ONCE PRN Hypoglycemia Protocol Protocol Enoxaparin Sodium 40 mg 02/10/18 10:00 02/12/18 09:41 Lovenox SC 40 mg DAILY MARCELL Administration Folic Acid 1 mg 02/10/18 10:00 02/12/18 09:42 Folic Acid PO 1 mg DAILY MARCELL Administration Gabapentin 300 mg 02/12/18 14:00 02/12/18 14:50 Neurontin PO 300 mg TID MARCELL Administration Glucagon 0 mg 02/10/18 05:15 Glucagen Diagnostic Kit IM STAT PRN Hypoglycemia Protocol Protocol Dextrose 1,000 mls @ 0 mls/hr 02/10/18 05:15 Dextrose 5% In Water 1000 Ml IV .Q0M PRN Hypoglycemia Protocol Protocol Per Protocol Doxycycline Hyclate 100 mg/ 100 mls @ 100 mls/hr 02/10/18 21:00 02/12/18 09:40 Sodium Chloride IVPB 100 mls/hr Q12H MARCELL Administration Protocol Ceftriaxone Sodium 1 gm/ 100 mls @ 100 mls/hr 02/11/18 10:00 02/12/18 09:41 Sodium Chloride IVPB 100 mls/hr DAILY MARCELL Administration Protocol Insulin Aspart 0 unit 02/10/18 07:30 02/12/18 16:32 Novolog SC 3 u ACHS MARCELL Administration Protocol Insulin Glargine 30 unit 02/11/18 10:00 02/12/18 09:43 Lantus SC Not Given DAILY MARCELL Methylprednisolone 40 mg 02/10/18 12:00 02/12/18 11:51 Solu-Medrol IVP 40 mg Q6 MARCELL Administration Multivitamins 1 tab 02/10/18 10:00 02/12/18 09:42 Hexavitamin PO 1 tab DAILY MARCELL Administration Oxycodone/Acetaminophen 1 tab 02/11/18 18:18 02/12/18 15:32 Percocet 5/325 Mg Tab PO 02/14/18 18:19 1 tab Q6H PRN Administration Pain, severe (8-10) Rosuvastatin Calcium 5 mg 02/10/18 22:00 02/10/18 22:20 Crestor PO Not Given HS [facility] Thiamine HCl 100 mg 02/10/18 10:00 02/12/18 09:42 Vitamin B1 Tab PO 100 mg DAILY MARCELL Administration Tramadol HCl 50 mg 02/11/18 21:04 02/12/18 11:52 Ultram PO 50 mg Q4 PRN Administration For pain scale 4-7 - Patient Studies Lab Studies: Microbiology Studies 02/10/18 03:02 Blood Culture - Preliminary Blood NO GROWTH AFTER 48 HOURS 02/10/18 03:05 Blood Culture - Preliminary Blood NO GROWTH AFTER 48 HOURS 02/10/18 09:25 MRSA Culture (Admit) - Final Naris MRSA NOT DETECTED Lab Studies 02/12/18 02/12/18 02/12/18 Range/Units 16:07 11:27 07:17 WBC (4.8-10.8) K/uL RBC (4.40-5.90) Mil/uL Hgb (12.0-18.0) g/dL Hct (35.0-51.0) % MCV (80.0-94.0) fL MCH (27.0-31.0) pg MCHC (33.0-37.0) g/dL RDW (11.5-14.5) % Plt Count (130-400) K/uL MPV (7.2-11.7) fL Neut % (Auto) (50.0-75.0) % Lymph % (Auto) (20.0-40.0) % [place] % (Auto) (0.0-10.0) % Eos % (Auto) (0.0-4.0) % Baso % (Auto) (0.0-2.0) % Neut # (Auto) (1.8-7.0) K/uL Lymph # (Auto) (1.0-4.3) K/uL [place] # (Auto) (0.0-0.8) K/uL Eos # (Auto) (0.0-0.7) K/uL Baso # (Auto) (0.0-0.2) K/uL Neutrophils % (Manual) (50-75) % Lymphocytes % (Manual) (20-40) % Monocytes % (Manual) (0-10) % Platelet Estimate (NORMAL) Macrocytosis (manual) Sodium (132-148) mmol/L Potassium (3.6-5.2) mmol/L Chloride (98-107) mmol/L Carbon Dioxide (22-30) mmol/L Anion Gap (10-20) BUN (9-20) mg/dL Creatinine (0.8-1.5) mg/dL Est GFR ( Amer) Est GFR (Non-Af Amer) POC Glucose (mg/dL) 226 H 202 H 212 H (65-110) mg/dL Random Glucose (75-110) mg/dL Calcium (8.6-10.4) mg/dl Phosphorus (2.5-4.5) mg/dL Magnesium (1.6-2.3) mg/dL Total Bilirubin (0.2-1.3) mg/dL AST (17-59) U/L ALT (21-72) U/L Alkaline Phosphatase (38-126) U/L Total Protein (6.3-8.3) g/dL Albumin (3.5-5.0) g/dL Globulin (2.2-3.9) gm/dL Albumin/Globulin Ratio (1.0-2.1) 02/12/18 02/12/18 02/11/18 Range/Units 06:26 06:26 21:41 WBC 17.8 H (4.8-10.8) K/uL RBC 3.67 L (4.40-5.90) Mil/uL Hgb 12.2 (12.0-18.0) g/dL Hct 36.7 (35.0-51.0) % MCV 100.1 H D (80.0-94.0) fL MCH 33.1 H (27.0-31.0) pg MCHC 33.1 (33.0-37.0) g/dL RDW 14.3 (11.5-14.5) % Plt Count 164 (130-400) K/uL MPV 10.3 (7.2-11.7) fL Neut % (Auto) 93.7 H (50.0-75.0) % Lymph % (Auto) 3.3 L (20.0-40.0) % [place] % (Auto) 2.9 (0.0-10.0) % Eos % (Auto) 0.0 (0.0-4.0) % Baso % (Auto) 0.1 (0.0-2.0) % Neut # (Auto) 16.7 H (1.8-7.0) K/uL Lymph # (Auto) 0.6 L (1.0-4.3) K/uL [place] # (Auto) 0.5 (0.0-0.8) K/uL Eos # (Auto) 0.0 (0.0-0.7) K/uL Baso # (Auto) 0.0 (0.0-0.2) K/uL Neutrophils % (Manual) 95 H (50-75) % Lymphocytes % (Manual) 3 L (20-40) % Monocytes % (Manual) 2 (0-10) % Platelet Estimate Normal (NORMAL) Macrocytosis (manual) Slight Sodium 133 (132-148) mmol/L Potassium 3.9 (3.6-5.2) mmol/L Chloride 97 L (98-107) mmol/L Carbon Dioxide 27 (22-30) mmol/L Anion Gap 13 (10-20) BUN 25 H (9-20) mg/dL Creatinine 0.5 L (0.8-1.5) mg/dL Est GFR ( Amer) > 60 Est GFR (Non-Af Amer) > 60 POC Glucose (mg/dL) 201 H (65-110) mg/dL Random Glucose 181 H (75-110) mg/dL Calcium 7.7 L (8.6-10.4) mg/dl Phosphorus 2.9 (2.5-4.5) mg/dL Magnesium 1.8 (1.6-2.3) mg/dL Total Bilirubin 0.4 (0.2-1.3) mg/dL AST 102 H D (17-59) U/L ALT 137 H (21-72) U/L Alkaline Phosphatase 88 (38-126) U/L Total Protein 6.3 (6.3-8.3) g/dL Albumin 3.3 L (3.5-5.0) g/dL Globulin 3.1 (2.2-3.9) gm/dL Albumin/Globulin Ratio 1.1 (1.0-2.1) Laboratory Results - last 24 hr 02/11/18 02/12/18 02/12/18 21:41 06:26 06:26 WBC 17.8 H RBC 3.67 L Hgb 12.2 Hct 36.7 MCV 100.1 H D MCH 33.1 H MCHC 33.1 RDW 14.3 Plt Count 164 MPV 10.3 Neut % (Auto) 93.7 H Lymph % (Auto) 3.3 L [place] % (Auto) 2.9 Eos % (Auto) 0.0 Baso % (Auto) 0.1 Neut # (Auto) 16.7 H Lymph # (Auto) 0.6 L [place] # (Auto) 0.5 Eos # (Auto) 0.0 Baso # (Auto) 0.0 Neutrophils % (Manual) 95 H Lymphocytes % (Manual) 3 L Monocytes % (Manual) 2 Platelet Estimate Normal Macrocytosis (manual) Slight Sodium 133 Potassium 3.9 Chloride 97 L Carbon Dioxide 27 Anion Gap 13 BUN 25 H Creatinine 0.5 L Est GFR ( Amer) > 60 Est GFR (Non-Af Amer) > 60 POC Glucose (mg/dL) 201 H Random Glucose 181 H Calcium 7.7 L Phosphorus 2.9 Magnesium 1.8 Total Bilirubin 0.4 AST 102 H D ALT 137 H Alkaline Phosphatase 88 Total Protein 6.3 Albumin 3.3 L Globulin 3.1 Albumin/Globulin Ratio 1.1 02/12/18 02/12/18 02/12/18 07:17 11:27 16:07 WBC RBC Hgb Hct MCV MCH MCHC RDW Plt Count MPV Neut % (Auto) Lymph % (Auto) [place] % (Auto) Eos % (Auto) Baso % (Auto) Neut # (Auto) Lymph # (Auto) [place] # (Auto) Eos # (Auto) Baso # (Auto) Neutrophils % (Manual) Lymphocytes % (Manual) Monocytes % (Manual) Platelet Estimate Macrocytosis (manual) Sodium Potassium Chloride Carbon Dioxide Anion Gap BUN Creatinine Est GFR ( Amer) Est GFR (Non-Af Amer) POC Glucose (mg/dL) 212 H 202 H 226 H Random Glucose Calcium Phosphorus Magnesium Total Bilirubin AST ALT Alkaline Phosphatase Total Protein Albumin Globulin Albumin/Globulin Ratio Fingerstick Blood Sugar Results: 226 Review of Systems - Review of Systems Review of Systems: 12 point ROS obtained and noted as in HPI Critical Care Progress Note - Nutrition Nutrition: Nutrition Category Date Time Status Consistent Carbohydrate [DIET] Diets 02/10/18 Breakfast Active Assessment/Plan - Assessment and Plan (Free Text) Assessment: Patient is a 52 year old male with a PMHx of hypertension, diabetes, HLD, PVD, asthma/COPD, and anxiety with recent diagnosis of Sq cell laryngeal cancer, had been seen by Dr. Wu and plan to start chemo. Admitted to ICU for sob with wheezing and suspected stridor with tachycardia. Patient ist Neuro AAOx3 Pulm COPD exacerbation: Duoneb/Pulmicort/Solumedrol Ceftriaxone/Doxy CV Held CCB verapamil in the setting of hypotension Normotensive currently Crestor held in setting of elevated LFTS Plavix for stents in extremities Endo ACHS; Lantus/Novolog; Patient states he no longer takes insulin because his sugars at home <200s. Gabapentin, Oxycodone, Tramadol for pain control Renal MV+Thiamine+Folate- EToh use disorder ID Doxycycline + Ceftriaxone (started 02/10 and 02/11 respectively) DVT ppx: Lovenox GI ppx: Not indicated at this time Disposition: Patient is stable for transfer to medical floor. Downgraded from ICU because patient oxygenating well with no distress Medical Management d/w Dr. Oliver PGY-1 Mele Gannon <Adelfo Oliver - Last Filed: 02/12/18 18:05> CCU Objective - Vital Signs / Intake & Output Vital Signs (Last 4 hours): Vital Signs Temp Pulse Resp BP Pulse Ox 02/12/18 17:15 86 16 124/83 98 02/12/18 17:00 99 H 17 91 L 02/12/18 16:59 89 21 153/90 H 95 02/12/18 16:00 97.5 F L 94 H 14 98 02/12/18 15:00 99 H 10 L 100 02/12/18 14:16 101 H 27 H 135/109 H 77 L 02/12/18 14:15 95 H 14 79 L Intake and Output (Last 8hrs): Intake & Output 02/12/18 02/12/18 02/12/18 06:59 14:59 22:59 Intake Total 200 920 150 Output Total 800 300 Balance -600 620 150 Weight 183 lb Intake: Intake, IV Amount 200 0 Left Hand 200 Right Hand 0 0 Oral 200 720 150 Output: Urine 800 300 Urine, Voided 800 300 Other: # Voids Urine, Voided 0 0 # Bowel Movements 0 0 0 - Medications Active Medications: Active Medications Generic Name Dose Route Start Last Admin Trade Name Freq PRN Reason Stop Dose Admin Acetaminophen 650 mg 02/10/18 13:48 02/11/18 09:40 Tylenol 325mg Tab PO 650 mg ONCE PRN Administration Pain, Mild (1-3) Albuterol/Ipratropium 3 ml 02/10/18 17:00 02/12/18 14:42 Duoneb 3 Mg/0.5 Mg (3 Ml) Ud INH 3 ml RQ6 MARCELL Administration Budesonide 0.5 mg 02/10/18 08:00 02/12/18 07:30 Pulmicort Respules INH 0.5 mg RQ12 MARCELL Administration Clopidogrel Bisulfate 75 mg 02/10/18 10:00 02/12/18 09:42 Plavix PO 75 mg DAILY MARCELL Administration Dextrose 0 ml 02/10/18 05:15 Dextrose 50% Inj IV STAT PRN Hypoglycemia Protocol Protocol Dextrose 0 gm 02/10/18 05:15 Glutose 15 PO ONCE PRN Hypoglycemia Protocol Protocol Enoxaparin Sodium 40 mg 02/10/18 10:00 02/12/18 09:41 Lovenox SC 40 mg DAILY MARCELL Administration Folic Acid 1 mg 02/10/18 10:00 02/12/18 09:42 Folic Acid PO 1 mg DAILY MARCELL Administration Gabapentin 300 mg 02/12/18 14:00 02/12/18 14:50 Neurontin PO 300 mg TID MARCELL Administration Glucagon 0 mg 02/10/18 05:15 Glucagen Diagnostic Kit IM STAT PRN Hypoglycemia Protocol Protocol Dextrose 1,000 mls @ 0 mls/hr 02/10/18 05:15 Dextrose 5% In Water 1000 Ml IV .Q0M PRN Hypoglycemia Protocol Protocol Per Protocol Doxycycline Hyclate 100 mg/ 100 mls @ 100 mls/hr 02/10/18 21:00 02/12/18 09:40 Sodium Chloride IVPB 100 mls/hr Q12H MARCELL Administration Protocol Ceftriaxone Sodium 1 gm/ 100 mls @ 100 mls/hr 02/11/18 10:00 02/12/18 09:41 Sodium Chloride IVPB 100 mls/hr DAILY MARCELL Administration Protocol Insulin Aspart 0 unit 02/10/18 07:30 02/12/18 16:32 Novolog SC 3 u ACHS MARCELL Administration Protocol Insulin Glargine 30 unit 02/11/18 10:00 02/12/18 09:43 Lantus SC Not Given DAILY MARCELL Methylprednisolone 40 mg 02/10/18 12:00 02/12/18 17:33 Solu-Medrol IVP 40 mg Q6 MARCELL Administration Multivitamins 1 tab 02/10/18 10:00 02/12/18 09:42 Hexavitamin PO 1 tab DAILY MARCELL Administration Oxycodone/Acetaminophen 1 tab 02/11/18 18:18 02/12/18 15:32 Percocet 5/325 Mg Tab PO 02/14/18 18:19 1 tab Q6H PRN Administration Pain, severe (8-10) Rosuvastatin Calcium 5 mg 02/10/18 22:00 02/10/18 22:20 Crestor PO Not Given HS [facility] Thiamine HCl 100 mg 02/10/18 10:00 02/12/18 09:42 Vitamin B1 Tab PO 100 mg DAILY MARCELL Administration Tramadol HCl 50 mg 02/11/18 21:04 02/12/18 11:52 Ultram PO 50 mg Q4 PRN Administration For pain scale 4-7 - Patient Studies Lab Studies: Microbiology Studies 02/10/18 03:02 Blood Culture - Preliminary Blood NO GROWTH AFTER 48 HOURS 02/10/18 03:05 Blood Culture - Preliminary Blood NO GROWTH AFTER 48 HOURS 02/10/18 09:25 MRSA Culture (Admit) - Final Naris MRSA NOT DETECTED Lab Studies 02/12/18 02/12/18 02/12/18 Range/Units 16:07 11:27 07:17 WBC (4.8-10.8) K/uL RBC (4.40-5.90) Mil/uL Hgb (12.0-18.0) g/dL Hct (35.0-51.0) % MCV (80.0-94.0) fL MCH (27.0-31.0) pg MCHC (33.0-37.0) g/dL RDW (11.5-14.5) % Plt Count (130-400) K/uL MPV (7.2-11.7) fL Neut % (Auto) (50.0-75.0) % Lymph % (Auto) (20.0-40.0) % [place] % (Auto) (0.0-10.0) % Eos % (Auto) (0.0-4.0) % Baso % (Auto) (0.0-2.0) % Neut # (Auto) (1.8-7.0) K/uL Lymph # (Auto) (1.0-4.3) K/uL [place] # (Auto) (0.0-0.8) K/uL Eos # (Auto) (0.0-0.7) K/uL Baso # (Auto) (0.0-0.2) K/uL Neutrophils % (Manual) (50-75) % Lymphocytes % (Manual) (20-40) % Monocytes % (Manual) (0-10) % Platelet Estimate (NORMAL) Macrocytosis (manual) Sodium (132-148) mmol/L Potassium (3.6-5.2) mmol/L Chloride (98-107) mmol/L Carbon Dioxide (22-30) mmol/L Anion Gap (10-20) BUN (9-20) mg/dL Creatinine (0.8-1.5) mg/dL Est GFR ( Amer) Est GFR (Non-Af Amer) POC Glucose (mg/dL) 226 H 202 H 212 H (65-110) mg/dL Random Glucose (75-110) mg/dL Calcium (8.6-10.4) mg/dl Phosphorus (2.5-4.5) mg/dL Magnesium (1.6-2.3) mg/dL Total Bilirubin (0.2-1.3) mg/dL AST (17-59) U/L ALT (21-72) U/L Alkaline Phosphatase (38-126) U/L Total Protein (6.3-8.3) g/dL Albumin (3.5-5.0) g/dL Globulin (2.2-3.9) gm/dL Albumin/Globulin Ratio (1.0-2.1) 02/12/18 02/12/18 02/11/18 Range/Units 06:26 06:26 21:41 WBC 17.8 H (4.8-10.8) K/uL RBC 3.67 L (4.40-5.90) Mil/uL Hgb 12.2 (12.0-18.0) g/dL Hct 36.7 (35.0-51.0) % MCV 100.1 H D (80.0-94.0) fL MCH 33.1 H (27.0-31.0) pg MCHC 33.1 (33.0-37.0) g/dL RDW 14.3 (11.5-14.5) % Plt Count 164 (130-400) K/uL MPV 10.3 (7.2-11.7) fL Neut % (Auto) 93.7 H (50.0-75.0) % Lymph % (Auto) 3.3 L (20.0-40.0) % [place] % (Auto) 2.9 (0.0-10.0) % Eos % (Auto) 0.0 (0.0-4.0) % Baso % (Auto) 0.1 (0.0-2.0) % Neut # (Auto) 16.7 H (1.8-7.0) K/uL Lymph # (Auto) 0.6 L (1.0-4.3) K/uL [place] # (Auto) 0.5 (0.0-0.8) K/uL Eos # (Auto) 0.0 (0.0-0.7) K/uL Baso # (Auto) 0.0 (0.0-0.2) K/uL Neutrophils % (Manual) 95 H (50-75) % Lymphocytes % (Manual) 3 L (20-40) % Monocytes % (Manual) 2 (0-10) % Platelet Estimate Normal (NORMAL) Macrocytosis (manual) Slight Sodium 133 (132-148) mmol/L Potassium 3.9 (3.6-5.2) mmol/L Chloride 97 L (98-107) mmol/L Carbon Dioxide 27 (22-30) mmol/L Anion Gap 13 (10-20) BUN 25 H (9-20) mg/dL Creatinine 0.5 L (0.8-1.5) mg/dL Est GFR ( Amer) > 60 Est GFR (Non-Af Amer) > 60 POC Glucose (mg/dL) 201 H (65-110) mg/dL Random Glucose 181 H (75-110) mg/dL Calcium 7.7 L (8.6-10.4) mg/dl Phosphorus 2.9 (2.5-4.5) mg/dL Magnesium 1.8 (1.6-2.3) mg/dL Total Bilirubin 0.4 (0.2-1.3) mg/dL AST 102 H D (17-59) U/L ALT 137 H (21-72) U/L Alkaline Phosphatase 88 (38-126) U/L Total Protein 6.3 (6.3-8.3) g/dL Albumin 3.3 L (3.5-5.0) g/dL Globulin 3.1 (2.2-3.9) gm/dL Albumin/Globulin Ratio 1.1 (1.0-2.1) Laboratory Results - last 24 hr 02/11/18 02/12/18 02/12/18 21:41 06:26 06:26 WBC 17.8 H RBC 3.67 L Hgb 12.2 Hct 36.7 MCV 100.1 H D MCH 33.1 H MCHC 33.1 RDW 14.3 Plt Count 164 MPV 10.3 Neut % (Auto) 93.7 H Lymph % (Auto) 3.3 L [place] % (Auto) 2.9 Eos % (Auto) 0.0 Baso % (Auto) 0.1 Neut # (Auto) 16.7 H Lymph # (Auto) 0.6 L [place] # (Auto) 0.5 Eos # (Auto) 0.0 Baso # (Auto) 0.0 Neutrophils % (Manual) 95 H Lymphocytes % (Manual) 3 L Monocytes % (Manual) 2 Platelet Estimate Normal Macrocytosis (manual) Slight Sodium 133 Potassium 3.9 Chloride 97 L Carbon Dioxide 27 Anion Gap 13 BUN 25 H Creatinine 0.5 L Est GFR ( Amer) > 60 Est GFR (Non-Af Amer) > 60 POC Glucose (mg/dL) 201 H Random Glucose 181 H Calcium 7.7 L Phosphorus 2.9 Magnesium 1.8 Total Bilirubin 0.4 AST 102 H D ALT 137 H Alkaline Phosphatase 88 Total Protein 6.3 Albumin 3.3 L Globulin 3.1 Albumin/Globulin Ratio 1.1 02/12/18 02/12/18 02/12/18 07:17 11:27 16:07 WBC RBC Hgb Hct MCV MCH MCHC RDW Plt Count MPV Neut % (Auto) Lymph % (Auto) [place] % (Auto) Eos % (Auto) Baso % (Auto) Neut # (Auto) Lymph # (Auto) [place] # (Auto) Eos # (Auto) Baso # (Auto) Neutrophils % (Manual) Lymphocytes % (Manual) Monocytes % (Manual) Platelet Estimate Macrocytosis (manual) Sodium Potassium Chloride Carbon Dioxide Anion Gap BUN Creatinine Est GFR ( Amer) Est GFR (Non-Af Amer) POC Glucose (mg/dL) 212 H 202 H 226 H Random Glucose Calcium Phosphorus Magnesium Total Bilirubin AST ALT Alkaline Phosphatase Total Protein Albumin Globulin Albumin/Globulin Ratio Critical Care Progress Note - Nutrition Nutrition: Nutrition Category Date Time Status Consistent Carbohydrate [DIET] Diets 02/10/18 Breakfast Active Attending/Attestation - Attestation I have personally seen and examined this patient.: Yes I have fully participated in the care of the patient.: Yes I have reviewed all pertinent clinical information: Yes Notes (Text): 02/12/18 18:05 Today: February The Patient was seen and examined at the bedside, Medical records reviewed, and management issues were discussed and formulated with the house staff. I have reviewed all the relevant clinical, laboratory, hemodynamic, radiographic data and medications Events reviewed Pain issues, skin care, head of the bed elevation, glycemic control were addressed. Agree with above resident's assessment and treatment plans of care as transcribed in Dr. Gannon's note.
[2018-02-12 18:17] VITALS: RESP 20
--- NOTE | 2018-02-12 18:39 | CP.PCM.CON ---
History of Present Illness - History of Present Illness History of Present Illness: HPI: 52 year old male with PMH of chronic heavy smoking, asthma/COPD, HTN, DM, HLD, PVD, anxiety, and recent dx of laryngeal squamous cell carcinoma presents with SOB, dry cough, and voice changes x1 week. He was treated in ICU with Ca rdizem for tachycardia, and steroids, nebulizer treatment, and BiPAP which improved respiratory symptoms. He will be transferred from ICU to floor today. Patient currently satting 100% on 3L NC. His only current complaint is an intermittent productive cough with brown sputum over the last 2 days. Patient denies fever, chills, chest palpitations, abdominal pain. PMH: asthma/COPD, HTN, DM, HLD, PVD, anxiety, laryngeal squamous cell carcinoma PSH: b/l BKA, R SFA stenting (01/29/17), L AKA (07/2015), Ex Lap , bowel resection, colovesicular fistula repair (11/2015), fem-fem bypass (2011) Allergies: NKDA SocialHx: smokes 1.5 ppd for 43 years; drinks 1 pint vodka daily, occasional marijuana use FamHx: unremarkable 10 point ROS negative except for as mentioned in HPI. Exam: Card: Tachycardic, no murmurs, rubs, gallops Lungs: diminished breath sounds bilaterally Extr: b/l BKA A&P 1. COPD exacerbation - 02/10/18 CXR: trace linear atelectasis at right costophrenic sulcus with remaining lung goldstein clear and otherwise stable - 02/10/18 CT chest: mild bibasilar atelectasis/infiltrates, mild scattered mid to lower lung zone ground-glass infiltrates. - continue Budesanide INH, Duoneb INH, Solu-medrol IVP - f/u outpatient PFTs Past Patient History - Infectious Disease Hx of Infectious Diseases: None - Past Medical History & Family History Past Medical History?: Yes - Past Social History Smoking Status: Heavy Smoker > 10 Cigarettes Daily - CARDIAC Hx Cardiac Disorders: Yes Hx Hypercholesterolemia: Yes Hx Hypertension: Yes - PULMONARY Hx Chronic Obstructive Pulmonary Disease (COPD): Yes - NEUROLOGICAL Hx Neurological Disorder: No - HEENT Hx HEENT Problems: No - RENAL Hx Chronic Kidney Disease: No - ENDOCRINE/METABOLIC Hx Diabetes Mellitus Type 1: Yes - HEMATOLOGICAL/ONCOLOGICAL Hx Blood Disorders: No - INTEGUMENTARY Hx Dermatological Problems: Yes Other/Comment: PT HAS BROWN SPOTS ON ARMS AND BACK 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 - MUSCULOSKELETAL/RHEUMATOLOGICAL Hx Musculoskeletal Disorders: No Hx Falls: No - GASTROINTESTINAL Hx Gastrointestinal Disorders: Yes Hx Diverticulitis: Yes Hx Gastritis: Yes - GENITOURINARY/GYNECOLOGICAL Hx Genitourinary Disorders: Yes Hx Urinary Tract Infection: Yes Other/Comment: PT STATES HE HAS BROWN URINE AND SOME FECAL MATERIAL IN HIS URINE. - PSYCHIATRIC Hx Psychophysiologic Disorder: Yes Hx Anxiety: Yes Hx Depression: Yes Hx Substance Use: Yes (WEEDS) - SURGICAL HISTORY Hx Surgeries: Yes Hx Amputation: Yes (LEFT aKA R BKA) Hx Angiogram: Yes Hx Cardiac Catheterization: Yes Hx Femoral-Popliteal Bypass Graft: Yes (X 3) Hx Vascular Surgery: Yes Other/Comment: Vascular bypass surgery femoral bilateral 2011,LT. BELOW KNEE AMPUTATION, right 5th toe amputation - ANESTHESIA Hx Anesthesia: Yes Hx Anesthesia Reactions: No Hx Malignant Hyperthermia: No Meds Allergies/Adverse Reactions: Allergies Allergy/AdvReac Type Severity Reaction Status Date / Time No Known Allergies Allergy Verified 02/10/18 02:02 - Medications Medications: Current Medications Acetaminophen (Tylenol 325mg Tab) 650 mg PO ONCE PRN PRN Reason: Pain, Mild (1-3) Last Admin: 02/11/18 09:40 Dose: 650 mg Albuterol/Ipratropium (Duoneb 3 Mg/0.5 Mg (3 Ml) Ud) 3 ml INH RQ6 [facility] Last Admin: 02/12/18 14:42 Dose: 3 ml Budesonide (Pulmicort Respules) 0.5 mg INH RQ12 [facility] Last Admin: 02/12/18 07:30 Dose: 0.5 mg Clopidogrel Bisulfate (Plavix) 75 mg PO DAILY [facility] Last Admin: 02/12/18 09:42 Dose: 75 mg Dextrose (Dextrose 50% Inj) 0 ml IV STAT PRN; Protocol PRN Reason: Hypoglycemia Protocol Dextrose (Glutose 15) 0 gm PO ONCE PRN; Protocol PRN Reason: Hypoglycemia Protocol Enoxaparin Sodium (Lovenox) 40 mg SC DAILY [facility] Last Admin: 02/12/18 09:41 Dose: 40 mg Folic Acid (Folic Acid) 1 mg PO DAILY [facility] Last Admin: 02/12/18 09:42 Dose: 1 mg Gabapentin (Neurontin) 300 mg PO TID [facility] Last Admin: 02/12/18 14:50 Dose: 300 mg Glucagon (Glucagen Diagnostic Kit) 0 mg IM STAT PRN; Protocol PRN Reason: Hypoglycemia Protocol Dextrose (Dextrose 5% In Water 1000 Ml) 1,000 mls @ 0 mls/hr IV .Q0M PRN; Protocol PRN Reason: Hypoglycemia Protocol Doxycycline Hyclate 100 mg/ (Sodium Chloride) 100 mls @ 100 mls/hr IVPB Q12H [facility]; Protocol Last Admin: 02/12/18 09:40 Dose: 100 mls/hr Ceftriaxone Sodium 1 gm/ (Sodium Chloride) 100 mls @ 100 mls/hr IVPB DAILY [facility]; Protocol Last Admin: 02/12/18 09:41 Dose: 100 mls/hr Insulin Aspart (Novolog) 0 unit SC ACHS [facility]; Protocol Last Admin: 02/12/18 16:32 Dose: 3 u Insulin Glargine (Lantus) 30 unit SC DAILY [facility] Last Admin: 02/12/18 09:43 Dose: Not Given Methylprednisolone (Solu-Medrol) 40 mg IVP Q6 [facility] Last Admin: 02/12/18 17:33 Dose: 40 mg Multivitamins (Hexavitamin) 1 tab PO DAILY [facility] Last Admin: 02/12/18 09:42 Dose: 1 tab Oxycodone/Acetaminophen (Percocet 5/325 Mg Tab) 1 tab PO Q6H PRN PRN Reason: Pain, severe (8-10) Stop: 02/14/18 18:19 Last Admin: 02/12/18 15:32 Dose: 1 tab Rosuvastatin Calcium (Crestor) 5 mg PO HS [facility] Last Admin: 02/10/18 22:20 Dose: Not Given Thiamine HCl (Vitamin B1 Tab) 100 mg PO DAILY [facility] Last Admin: 02/12/18 09:42 Dose: 100 mg Tramadol HCl (Ultram) 50 mg PO Q4 PRN PRN Reason: For pain scale 4-7 Last Admin: 02/12/18 11:52 Dose: 50 mg Results - Vital Signs Recent Vital Signs: Last Vital Signs Temp 97.9 F 02/12/18 18:16 Pulse 96 H 02/12/18 18:16 Resp 20 02/12/18 18:16 BP 151/87 H 02/12/18 18:16 Pulse Ox 97 02/12/18 18:16 - Labs Result Diagrams: 02/12/18 06:26 02/12/18 06:26 Labs: Laboratory Results - last 24 hr 02/11/18 02/12/18 02/12/18 21:41 06:26 06:26 WBC 17.8 H RBC 3.67 L Hgb 12.2 Hct 36.7 MCV 100.1 H D MCH 33.1 H MCHC 33.1 RDW 14.3 Plt Count 164 MPV 10.3 Neut % (Auto) 93.7 H Lymph % (Auto) 3.3 L Mccreary % (Auto) 2.9 Eos % (Auto) 0.0 Baso % (Auto) 0.1 Neut # (Auto) 16.7 H Lymph # (Auto) 0.6 L Mccreary # (Auto) 0.5 Eos # (Auto) 0.0 Baso # (Auto) 0.0 Neutrophils % (Manual) 95 H Lymphocytes % (Manual) 3 L Monocytes % (Manual) 2 Platelet Estimate Normal Macrocytosis (manual) Slight Sodium 133 Potassium 3.9 Chloride 97 L Carbon Dioxide 27 Anion Gap 13 BUN 25 H Creatinine 0.5 L Est GFR ( Amer) > 60 Est GFR (Non-Af Amer) > 60 POC Glucose (mg/dL) 201 H Random Glucose 181 H Calcium 7.7 L Phosphorus 2.9 Magnesium 1.8 Total Bilirubin 0.4 AST 102 H D ALT 137 H Alkaline Phosphatase 88 Total Protein 6.3 Albumin 3.3 L Globulin 3.1 Albumin/Globulin Ratio 1.1 02/12/18 02/12/18 02/12/18 07:17 11:27 16:07 WBC RBC Hgb Hct MCV MCH MCHC RDW Plt Count MPV Neut % (Auto) Lymph % (Auto) Mccreary % (Auto) Eos % (Auto) Baso % (Auto) Neut # (Auto) Lymph # (Auto) Mccreary # (Auto) Eos # (Auto) Baso # (Auto) Neutrophils % (Manual) Lymphocytes % (Manual) Monocytes % (Manual) Platelet Estimate Macrocytosis (manual) Sodium Potassium Chloride Carbon Dioxide Anion Gap BUN Creatinine Est GFR ( Amer) Est GFR (Non-Af Amer) POC Glucose (mg/dL) 212 H 202 H 226 H Random Glucose Calcium Phosphorus Magnesium Total Bilirubin AST ALT Alkaline Phosphatase Total Protein Albumin Globulin Albumin/Globulin Ratio
--- NOTE | 2018-02-12 23:02 | CON ---
DATE: 02/12/2018 REQUESTING PHYSICIAN: Dr. Lee. REASON FOR CONSULTATION: Pharyngeal cancer. HISTORY OF PRESENT ILLNESS: This is a 52-year-old male with a history of pharyngeal cancer diagnosed, who is for chemoradiation. ASSESSMENT AND PLAN: There is no ENT intervention yet at this point since the patient is not short of breath. There are no upper airway obstruction symptoms. Colton Contreras MD
--- NOTE | 2018-02-12 23:10 | CP.PCM.PN ---
Subjective - Subjective Subjective: dictated Objective - Vital Signs/Intake and Output Vital Signs (last 24 hours): Temp Pulse Resp BP Pulse Ox 97.9 F 96 H 20 151/87 H 97 02/12/18 18:16 02/12/18 18:16 02/12/18 18:16 02/12/18 18:16 02/12/18 18:16 Intake and Output: 02/12/18 02/13/18 18:59 06:59 Intake Total 1070 Output Total 300 Balance 770 - Medications Medications: Current Medications Acetaminophen (Tylenol 325mg Tab) 650 mg PO ONCE PRN PRN Reason: Pain, Mild (1-3) Last Admin: 02/11/18 09:40 Dose: 650 mg Albuterol/Ipratropium (Duoneb 3 Mg/0.5 Mg (3 Ml) Ud) 3 ml INH RQ6 [facility] Last Admin: 02/12/18 14:42 Dose: 3 ml Budesonide (Pulmicort Respules) 0.5 mg INH RQ12 [facility] Last Admin: 02/12/18 07:30 Dose: 0.5 mg Clopidogrel Bisulfate (Plavix) 75 mg PO DAILY [facility] Last Admin: 02/12/18 09:42 Dose: 75 mg Dextrose (Dextrose 50% Inj) 0 ml IV STAT PRN; Protocol PRN Reason: Hypoglycemia Protocol Dextrose (Glutose 15) 0 gm PO ONCE PRN; Protocol PRN Reason: Hypoglycemia Protocol Enoxaparin Sodium (Lovenox) 40 mg SC DAILY [facility] Last Admin: 02/12/18 09:41 Dose: 40 mg Folic Acid (Folic Acid) 1 mg PO DAILY [facility] Last Admin: 02/12/18 09:42 Dose: 1 mg Gabapentin (Neurontin) 300 mg PO TID [facility] Last Admin: 02/12/18 14:50 Dose: 300 mg Glucagon (Glucagen Diagnostic Kit) 0 mg IM STAT PRN; Protocol PRN Reason: Hypoglycemia Protocol Dextrose (Dextrose 5% In Water 1000 Ml) 1,000 mls @ 0 mls/hr IV .Q0M PRN; Protocol PRN Reason: Hypoglycemia Protocol Doxycycline Hyclate 100 mg/ (Sodium Chloride) 100 mls @ 100 mls/hr IVPB Q12H [facility]; Protocol Last Admin: 02/12/18 22:00 Dose: 100 mls/hr Ceftriaxone Sodium 1 gm/ (Sodium Chloride) 100 mls @ 100 mls/hr IVPB DAILY [facility]; Protocol Last Admin: 02/12/18 09:41 Dose: 100 mls/hr Insulin Aspart (Novolog) 0 unit SC ACHS [facility]; Protocol Last Admin: 02/12/18 22:01 Dose: Not Given Insulin Glargine (Lantus) 30 unit SC DAILY [facility] Last Admin: 02/12/18 09:43 Dose: Not Given Methylprednisolone (Solu-Medrol) 40 mg IVP Q6 [facility] Last Admin: 02/12/18 17:33 Dose: 40 mg Multivitamins (Hexavitamin) 1 tab PO DAILY [facility] Last Admin: 02/12/18 09:42 Dose: 1 tab Oxycodone/Acetaminophen (Percocet 5/325 Mg Tab) 1 tab PO Q6H PRN PRN Reason: Pain, severe (8-10) Stop: 02/14/18 18:19 Last Admin: 02/12/18 21:59 Dose: 1 tab Rosuvastatin Calcium (Crestor) 5 mg PO HS [facility] Last Admin: 02/10/18 22:20 Dose: Not Given Thiamine HCl (Vitamin B1 Tab) 100 mg PO DAILY [facility] Last Admin: 02/12/18 09:42 Dose: 100 mg Tramadol HCl (Ultram) 50 mg PO Q4 PRN PRN Reason: For pain scale 4-7 Last Admin: 02/12/18 19:15 Dose: 50 mg - Labs Labs: 02/12/18 06:26 02/12/18 06:26 PT 12.5 SECONDS (9.7-12.2) H 02/10/18 02:55 INR 1.1 02/10/18 02:55 APTT 33 SECONDS (21-34) 02/10/18 02:55
--- NOTE | 2018-02-12 23:27 | PQF ---
PROVIDER RESPONSE TEXT: Sepsis secondary to Pneumonia in the setting of COPD Exac and Pharyngeal CA treated with Rocephin IV, Doxycycline IV and BIPAP REVIEWER QUERY TEXT: Clarification of Clinical Diagnostic Findings Please clarify documentation or clinical relevance for the clinical / diagnostic findings or whether those are insignificant or unable to be further specified. Sepsis secondary to Pneumonia in the setting of COPD Exac and Pharyngeal CA treated with Rocephin IV , Doxycycline IV and BIPAP. -Other Explantion. -Unable to Determine . The patient's Clinical Indicators include: Clinical Findings: SOB, Cough , wheezing . V/S P=130, RR=26, BP= 81/61 . CXR Showing Basilar infiltra te .mild scattered ground glass pulmonary opacities bilateral lobes . CT Angio Chest shows Scattered mid to lower lung zone ground glass infiltrates. LABS : Wbc= 14.3, Neuts=93, Bands=3 .LA= 5.8 Treatment: Rocephin IV, Doxycycline IV , Solumedrol IV Risk factor: Immunocompromised Query created by: Addie Lopes on 02/11/2018 3:47 PM Electronically signed by: Jagdeep Lee MD 02/12/2018 11:24 PM
[2018-02-13] MEDS: MethylPREDNISolone 40 mg Vial IVP SCH ×3 (00:03→12:33)
--- NOTE | 2018-02-13 01:25 | PN ---
DATE: 02/12/2018 SUBJECTIVE: The patient has less cough, less shortness of breath, less wheezing. No fever. No chills. He feels much better. PHYSICAL EXAMINATION: VITAL SIGNS: Blood pressure 151/87, pulse 96, respiratory rate 20, temperature 97.9. LUNGS: Decreased air entry. Positive rhonchi. CARDIOVASCULAR SYSTEM: S1 and S2, regular. ABDOMEN: Soft and nontender. Bowel sounds are positive. ASSESSMENT: 1. Acute exacerbation of chronic obstructive pulmonary disease. 2. History of bronchitis, rule out pneumonia. 3. Peripheral arterial disease. 4. Type 2 diabetes. PLAN: Continue taper steroid. Pulmonary and Otorhinolaryngology consult. Jagdeep Lee MD
[2018-02-13] MEDS: Albuterol-Ipratrop 3 mg / 0.5 (3 ml) UD INH SCH ×3 (02:00→13:35)
[2018-02-13] MEDS: Oxycodone/Acetaminophen 5/325 mg Tab PO PRN ×2 (04:21→10:12)
[2018-02-13] MEDS: Budesonide 0.5 mg/2 ml Inhal Susp UD INH SCH (07:35)
[2018-02-13] MEDS: (Novolog) Insulin Aspart, Recombinant 100 u/ml 10 ml vial SC SCH ×2 (07:51→12:30)
[2018-02-13] MEDS: Multiple Vitamins Tab PO SCH (10:01)
[2018-02-13] MEDS: Enoxaparin 40 mg Syringe SC SCH (10:03)
[2018-02-13] MEDS: (Lantus) Insulin Glargine, Recombinant SC SCH (10:11)
--- NOTE | 2018-02-13 13:08 | CP.PCM.PN ---
Subjective - Date & Time of Evaluation Date of Evaluation: 02/13/18 Time of Evaluation: 13:08 - Subjective Subjective: PATIENT SEEN AND EXAMINED AT THE BEDSIDE Objective - Vital Signs/Intake and Output Vital Signs (last 24 hours): Temp Pulse Resp BP Pulse Ox 97.6 F 91 H 20 157/95 H 98 02/13/18 08:32 02/13/18 08:32 02/13/18 08:32 02/13/18 08:32 02/13/18 08:32 Intake and Output: 02/13/18 02/13/18 06:59 18:59 Intake Total 200 Output Total 350 Balance -150 - Medications Medications: Current Medications Acetaminophen (Tylenol 325mg Tab) 650 mg PO ONCE PRN PRN Reason: Pain, Mild (1-3) Last Admin: 02/11/18 09:40 Dose: 650 mg Albuterol/Ipratropium (Duoneb 3 Mg/0.5 Mg (3 Ml) Ud) 3 ml INH RQ6 [facility] Last Admin: 02/13/18 07:35 Dose: 3 ml Budesonide (Pulmicort Respules) 0.5 mg INH RQ12 [facility] Last Admin: 02/13/18 07:35 Dose: 0.5 mg Clopidogrel Bisulfate (Plavix) 75 mg PO DAILY [facility] Last Admin: 02/13/18 10:01 Dose: 75 mg Dextrose (Dextrose 50% Inj) 0 ml IV STAT PRN; Protocol PRN Reason: Hypoglycemia Protocol Dextrose (Glutose 15) 0 gm PO ONCE PRN; Protocol PRN Reason: Hypoglycemia Protocol Enoxaparin Sodium (Lovenox) 40 mg SC DAILY [facility] Last Admin: 02/13/18 10:03 Dose: Not Given Folic Acid (Folic Acid) 1 mg PO DAILY [facility] Last Admin: 02/13/18 10:01 Dose: 1 mg Gabapentin (Neurontin) 300 mg PO TID [facility] Last Admin: 02/13/18 10:01 Dose: 300 mg Glucagon (Glucagen Diagnostic Kit) 0 mg IM STAT PRN; Protocol PRN Reason: Hypoglycemia Protocol Dextrose (Dextrose 5% In Water 1000 Ml) 1,000 mls @ 0 mls/hr IV .Q0M PRN; Protocol PRN Reason: Hypoglycemia Protocol Doxycycline Hyclate 100 mg/ (Sodium Chloride) 100 mls @ 100 mls/hr IVPB Q12H [facility]; Protocol Last Admin: 02/13/18 08:03 Dose: 100 mls/hr Ceftriaxone Sodium 1 gm/ (Sodium Chloride) 100 mls @ 100 mls/hr IVPB DAILY [facility]; Protocol Last Admin: 02/13/18 10:00 Dose: 100 mls/hr Insulin Aspart (Novolog) 0 unit SC ACHS [facility]; Protocol Last Admin: 02/13/18 12:30 Dose: 6 u Insulin Glargine (Lantus) 30 unit SC DAILY [facility] Last Admin: 02/13/18 10:11 Dose: 30 units Methylprednisolone (Solu-Medrol) 40 mg IVP Q6 [facility] Last Admin: 02/13/18 12:33 Dose: 40 mg Multivitamins (Hexavitamin) 1 tab PO DAILY [facility] Last Admin: 02/13/18 10:01 Dose: 1 tab Oxycodone/Acetaminophen (Percocet 5/325 Mg Tab) 1 tab PO Q6H PRN PRN Reason: Pain, severe (8-10) Stop: 02/14/18 18:19 Last Admin: 02/13/18 10:12 Dose: 1 tab Rosuvastatin Calcium (Crestor) 5 mg PO HS [facility] Last Admin: 02/10/18 22:20 Dose: Not Given Thiamine HCl (Vitamin B1 Tab) 100 mg PO DAILY [facility] Last Admin: 02/13/18 10:01 Dose: 100 mg Tramadol HCl (Ultram) 50 mg PO Q4 PRN PRN Reason: For pain scale 4-7 Last Admin: 02/13/18 12:28 Dose: 50 mg - Labs Labs: 02/12/18 06:26 02/12/18 06:26 PT 12.5 SECONDS (9.7-12.2) H 02/10/18 02:55 INR 1.1 02/10/18 02:55 APTT 33 SECONDS (21-34) 02/10/18 02:55 Assessment and Plan - Assessment and Plan (Free Text) Assessment: FOLLOW UP WITH DR SINGH IN HIS OFFICE-----CALL FOR APPOINTMENT FOLLOW UP WITH DR ORTIZ IN HIS OFFICE -----CALL FOR APPOINT,MENT CONTINUE HOME MEDICATION NEW PRESCRIPTION GIVEN PREDNISONE TAPER NICOTINE GUM FOR 2 WEEKS ACTIVITY TOLERATED CALL DR RG OR GO TO THE EMERGENCY ROOM IF SYMPTOM RETURN OR WORSENING
[2018-02-13 16:04] VITALS: BP 152/95; PULSE 92; TEMP 97.7; O2SAT 97
--- NOTE | 2018-02-13 17:34 | CP.PCM.PN ---
Subjective - Date & Time of Evaluation Date of Evaluation: 02/13/18 Time of Evaluation: 10:00 - Subjective Subjective: Patient seen and examined at bedside this AM. Patient resting comfortably on bed, states his SOB has improved a lot. Denies chest pain, cough. Exam: Card: Tachycardic, no murmurs, rubs, gallops Lungs: diminished breath sounds bilaterally with mild bibasilar wheezes Extr: b/l BKA A&P 1. COPD exacerbation - 02/10/18 CXR: trace linear atelectasis at right costophrenic sulcus with remaining lung goldstein clear and otherwise stable - 02/10/18 CT chest: mild bibasilar atelectasis/infiltrates, mild scattered mid to lower lung zone ground-glass infiltrates. - continue Budesanide INH, Duoneb INH, Solu-medrol IVP - f/u outpatient PFTs Objective - Vital Signs/Intake and Output Vital Signs (last 24 hours): Temp Pulse Resp BP Pulse Ox 97.7 F 92 H 20 152/95 H 97 02/13/18 16:00 02/13/18 16:00 02/13/18 16:00 02/13/18 16:00 02/13/18 16:00 Intake and Output: 02/13/18 02/13/18 06:59 18:59 Intake Total 200 700 Output Total 350 Balance -150 700 - Labs Labs: 02/12/18 06:26 02/12/18 06:26 PT 12.5 SECONDS (9.7-12.2) H 02/10/18 02:55 INR 1.1 02/10/18 02:55 APTT 33 SECONDS (21-34) 02/10/18 02:55
--- NOTE | 2018-02-13 21:49 | CP.PCM.DIS ---
Provider - Provider Date of Admission: 02/10/18 04:29 Attending physician: Jagdeep Lee MD Consults: 02/10/18 18:33 Cardiology Consult Routine Comment: Consulting Provider: Juan Navas Consulting Physician: Juan Navas Reason for Consult: at risk of CAD 02/10/18 23:22 Nursing Referral for Wound Care Routine Comment: Physician Instructions: Reason For Exam: pna Pulmonology Consult Routine Comment: Consulting Provider: Quan Blair Consulting Physician: Quan Blair Reason for Consult: stridor 02/12/18 12:06 Physician Consult Routine Comment: Consulting Provider: Colton Contreras Consulting Physician: Colton Contreras Reason for Consult: ca of larynx Hospital Course - Lab Results Lab Results: Micro Results 02/12/18 17:23 Nose MRSA Culture - Final MRSA NOT DETECTED 02/10/18 03:02 Blood Blood Culture - Preliminary NO GROWTH AFTER 3 DAYS 02/10/18 03:05 Blood Blood Culture - Preliminary NO GROWTH AFTER 3 DAYS 02/10/18 09:25 Naris MRSA Culture (Admit) - Final MRSA NOT DETECTED Most Recent Lab Values WBC 17.8 K/uL (4.8-10.8) H 02/12/18 06:26 RBC 3.67 Mil/uL (4.40-5.90) L 02/12/18 06:26 Hgb 12.2 g/dL (12.0-18.0) 02/12/18 06:26 Hct 36.7 % (35.0-51.0) 02/12/18 06:26 MCV 100.1 fL (80.0-94.0) H D 02/12/18 06:26 MCH 33.1 pg (27.0-31.0) H 02/12/18 06:26 MCHC 33.1 g/dL (33.0-37.0) 02/12/18 06:26 RDW 14.3 % (11.5-14.5) 02/12/18 06:26 Plt Count 164 K/uL (130-400) 02/12/18 06:26 MPV 10.3 fL (7.2-11.7) 02/12/18 06:26 Neut % (Auto) 93.7 % (50.0-75.0) H 02/12/18 06:26 Lymph % (Auto) 3.3 % (20.0-40.0) L 02/12/18 06:26 [place] % (Auto) 2.9 % (0.0-10.0) 02/12/18 06:26 Eos % (Auto) 0.0 % (0.0-4.0) 02/12/18 06:26 Baso % (Auto) 0.1 % (0.0-2.0) 02/12/18 06:26 Neut # (Auto) 16.7 K/uL (1.8-7.0) H 02/12/18 06:26 Lymph # (Auto) 0.6 K/uL (1.0-4.3) L 02/12/18 06:26 [place] # (Auto) 0.5 K/uL (0.0-0.8) 02/12/18 06:26 Eos # (Auto) 0.0 K/uL (0.0-0.7) 02/12/18 06:26 Baso # (Auto) 0.0 K/uL (0.0-0.2) 02/12/18 06:26 Neutrophils % (Manual) 95 % (50-75) H 02/12/18 06:26 Band Neutrophils % 3 % (0-2) H 02/11/18 05:55 Lymphocytes % (Manual) 3 % (20-40) L 02/12/18 06:26 Monocytes % (Manual) 2 % (0-10) 02/12/18 06:26 Platelet Estimate Normal (NORMAL) 02/12/18 06:26 Large Platelets Present 02/10/18 11:56 RBC Morphology Normal 02/11/18 05:55 Anisocytosis (manual) Slight 02/10/18 11:56 Macrocytosis (manual) Slight 02/12/18 06:26 PT 12.5 SECONDS (9.7-12.2) H 02/10/18 02:55 INR 1.1 02/10/18 02:55 APTT 33 SECONDS (21-34) 02/10/18 02:55 Puncture Site Rb 02/11/18 05:12 pCO2 40 mm/Hg (35-45) 02/11/18 05:12 pO2 84 mm/Hg (80-100) 02/11/18 05:12 HCO3 28.2 mmol/L (21-28) H 02/11/18 05:12 ABG pH 7.46 (7.35-7.45) H 02/11/18 05:12 ABG Total CO2 29.6 mmol/L (22-28) H 02/11/18 05:12 ABG O2 Saturation 97.8 % (95-98) 02/11/18 05:12 ABG Base Excess 4.2 mmol/L (-2.0-3.0) H 02/11/18 05:12 ABG Hemoglobin 11.7 g/dL (11.7-17.4) 02/10/18 19:45 ABG Carboxyhemoglobin 1.4 % (0.5-1.5) 02/10/18 19:45 POC ABG HHb (Measured) 2.5 % (0.0-5.0) 02/10/18 19:45 ABG Methemoglobin 0.6 % (0.0-3.0) 02/10/18 19:45 Tab Test Na 02/11/18 05:12 ABG Potassium 3.6 mmol/L (3.6-5.2) 02/11/18 05:12 VBG pH 7.34 (7.32-7.43) 02/10/18 02:35 VBG pCO2 41 mmHg (40-60) 02/10/18 02:35 VBG HCO3 20.9 mmol/L 02/10/18 02:35 VBG Total CO2 23.4 mmol/L (22-28) 02/10/18 02:35 VBG O2 Sat (Calc) 59.7 % (40-65) 02/10/18 02:35 VBG Base Excess -3.5 mmol/L (0.0-2.0) L 02/10/18 02:35 VBG Potassium 2.9 mmol/L (3.6-5.2) L 02/10/18 02:35 A-a O2 Difference 294.0 mm/Hg 02/11/18 05:12 Respiratory Index 3.5 02/11/18 05:12 Hgb O2 Saturation 95.5 % (95.0-98.0) 02/10/18 19:45 Sodium 139.0 mmol/l (132-148) 02/11/18 05:12 Chloride 106.0 mmol/L (98-107) 02/11/18 05:12 Glucose 165 mg/dl (75-110) H 02/11/18 05:12 Lactate 0.9 mmol/L (0.7-2.1) 02/11/18 05:12 Vent Mode Bipap 02/11/18 05:12 Mechanical Rate 8 02/10/18 19:45 FiO2 60.0 % 02/11/18 05:12 Inspiratory BiPAP 13 02/11/18 05:12 Expiratory BiPAP 5 02/11/18 05:12 Crit Value Called To Dr negin garcía 02/10/18 19:45 Crit Value Called By Darrel goldman 02/10/18 19:45 Crit Value Read Back Y 02/10/18 19:45 Blood Gas Notified Time 194802/10/18 19:45 Sodium 133 mmol/L (132-148) 02/12/18 06:26 Potassium 3.9 mmol/L (3.6-5.2) 02/12/18 06:26 Chloride 97 mmol/L (98-107) L 02/12/18 06:26 Carbon Dioxide 27 mmol/L (22-30) 02/12/18 06:26 Anion Gap 13 (10-20) 02/12/18 06:26 BUN 25 mg/dL (9-20) H 02/12/18 06:26 Creatinine 0.5 mg/dL (0.8-1.5) L 02/12/18 06:26 Est GFR ( Amer) > 60 02/12/18 06:26 Est GFR (Non-Af Amer) > 60 02/12/18 06:26 POC Glucose (mg/dL) 336 mg/dL (65-110) H 02/13/18 11:24 Random Glucose 181 mg/dL (75-110) H 02/12/18 06:26 Lactic Acid 5.8 mmol/L (0.7-2.1) H* 02/10/18 22:13 Calcium 7.7 mg/dl (8.6-10.4) L 02/12/18 06:26 Phosphorus 2.9 mg/dL (2.5-4.5) 02/12/18 06:26 Magnesium 1.8 mg/dL (1.6-2.3) 02/12/18 06:26 Total Bilirubin 0.4 mg/dL (0.2-1.3) 02/12/18 06:26 AST 102 U/L (17-59) H D 02/12/18 06:26 ALT 137 U/L (21-72) H 02/12/18 06:26 Alkaline Phosphatase 88 U/L (38-126) 02/12/18 06:26 Total Creatine Kinase 61 U/L (55-170) 02/10/18 18:43 CK-MB (Mass) 1.33 ng/mL (0.0-3.38) 02/10/18 18:43 Troponin I < 0.0120 ng/mL (0.00-0.120) 02/10/18 18:43 NT-Pro-B Natriuret Pep 598 pg/mL (0-900) 02/10/18 11:56 Total Protein 6.3 g/dL (6.3-8.3) 02/12/18 06:26 Albumin 3.3 g/dL (3.5-5.0) L 02/12/18 06:26 Globulin 3.1 gm/dL (2.2-3.9) 02/12/18 06:26 Albumin/Globulin Ratio 1.1 (1.0-2.1) 02/12/18 06:26 Arterial Blood Potassium 3.6 mmol/L (3.6-5.2) 02/11/18 05:12 Venous Blood Potassium 2.9 mmol/L (3.6-5.2) L 02/10/18 02:35 Toxicology Panel see note 02/10/18 21:03 C. difficile Ag & Toxin Negative (NEGATIVE) 02/10/18 22:13 Influenza Typ A,B (EIA) Negative for flu a/b (NEGATIVE) 02/10/18 12:48 Discharge Exam - Head Exam Head Exam: ATRAUMATIC Discharge Plan - Discharge Medications Prescriptions: Nicotine Gum [Nicorette Gum] 2 mg PO Q4H 14 Days gum predniSONE [predniSONE Tab] 10 mg PO DAILY #30 tab - Follow Up Plan Condition: GUARDED Disposition: HOME/ ROUTINE Instructions: Quitting Smoking for Older Adults, Asthma, Adult (DC), Wheezing, Shortness of Breath (Dyspnea) (DC), How to Use Your Metered Dose Inhaler (Adults), Inhalers, Exacerbation of COPD (DC) Additional Instructions: FOLLOW UP WITH DR LEE IN HIS OFFICE-----CALL FOR APPOINTMENT FOLLOW UP WITH DR BLAIR IN HIS OFFICE -----CALL FOR APPOINT,MENT CONTINUE HOME MEDICATION NEW PRESCRIPTION GIVEN PREDNISONE TAPER NICOTINE GUM FOR 2 WEEKS ACTIVITY TOLERATED CALL DR RG OR GO TO THE EMERGENCY ROOM IF SYMPTOM RETURN OR WORSENING Referrals: Quan Blair MD [Staff Provider] - Jagdeep Lee MD [Staff Provider] -
--- NOTE | 2018-02-15 12:00 | DS ---
DISCHARGE DIAGNOSES: 1. Acute exacerbation of chronic obstructive pulmonary disease. 2. Tracheobronchitis. 3. Throat cancer. 4. Hypertension. 5. Type 2 diabetes. HOSPITAL COURSE: This is a 52-year-old male with history of COPD, diabetes, hypertension, chronic heavy smoker with bilateral lower extremity amputation, who came in because of cough, congestion, shortness of breath, and stridor. The patient was treated in the ER, started on Solu-Medrol, oxygen nebulizer, BiPAP placed in ICU. The patient did well. He was subsequently weaned off oxygen and the patient was treated, stabilized, and discharged on home nebulizer. The patient will also start Chantix for his smoking and he will have a PET scan and then after that, he will have chemotherapy. PHYSICAL EXAMINATION: VITAL SIGNS: Blood pressure 152/95, pulse 92, respiratory rate 20, temperature 97.7. LUNGS: Decreased air entry. Positive rhonchi. CARDIOVASCULAR: S1 and S2 regular. ABDOMEN: Soft. PLAN: Discharge the patient. Monitor the patient. Jagdeep Lee MD
== END 2018-02-13 16:58 | disposition home or self-care (01) | DRG 191 ==
LOC: C.ER 01:41 → C.9I 04:29 → C.3T 02-12 17:36
PROVIDERS: ADMIT Internal Medicine; ATTEND Internal Medicine
PROC: 5A09457 Assistance with Respiratory Ventilation, 24-96 Consecutive Hours, Continuous Positive Airway Pressure (ICD-10-PCS; principal; 2018-02-10)
DX: J44.1 Chronic obstructive pulmonary disease with (acute) exacerbation (principal); J98.11 Atelectasis; I47.1 Supraventricular tachycardia; E87.2 Acidosis; Z89.511 Acquired absence of right leg below knee; Z79.4 Long term (current) use of insulin; I48.91 Unspecified atrial fibrillation; I10 Essential (primary) hypertension; F12.10 Cannabis abuse, uncomplicated; F10.10 Alcohol abuse, uncomplicated; E78.5 Hyperlipidemia, unspecified; F17.210 Nicotine dependence, cigarettes, uncomplicated; C32.9 Malignant neoplasm of larynx, unspecified; Z89.612 Acquired absence of left leg above knee; E11.649 Type 2 diabetes mellitus with hypoglycemia without coma

== ENCOUNTER 2018-04-22 16:36 | Inpatient (IN) | payer MEDICARE, MEDICAID ==
[2018-04-22 16:36] VITALS: BMI 26.7
--- NOTE | 2018-04-22 18:12 | C.PDOC ---
History Of Present Illness 53 y/o male with recent diagnosis throat cancer (currently receiving chemo and radiation), presents to the ED due to abnormal labs. Patient was seen in the office today with Dr. Osborne, who told patient he is anemic and needs a transfusion. Of note, they are also discussing a port placement, as patient is having difficulties with IVs. Patient also has PMHx of COPD and has some chronic SOB but is otherwise asymptomatic. He complains of some generalized weakness. No other associated symptoms. Time Seen by Provider: 04/22/18 18:00 Chief Complaint (Nursing): Abnormal Labs History Per: Patient History/Exam Limitations: no limitations Onset/Duration Of Symptoms: Days Current Symptoms Are (Timing): Still Present Reports Recently: Treated By A Physician Past Medical History Reviewed: Historical Data, Nursing Documentation, Vital Signs Vital Signs: Last Vital Signs Temp 99 F 04/22/18 17:14 Pulse 89 04/22/18 17:14 Resp 19 04/22/18 17:14 BP 122/79 04/22/18 17:14 Pulse Ox 98 04/22/18 17:14 - Medical History PMH: Anxiety, Asthma, COPD, Depression, Diverticulitis, Gastritis, HTN, Hyperch olesterolemia, Malignancy (Throat CA, on chemo and radiation) Denies: Chronic Kidney Disease - [facility] Procedures (01/20/18) ASSISTANCE WITH RESPIRATORY VENTILATION, 24-96 HRS, CPAP (02/10/18) DETACHMENT AT LEFT 2ND TOE, COMPLETE, OPEN APPROACH (05/08/15) DETACHMENT AT LEFT FEMORAL REGION, OPEN APPROACH (07/06/15) DETACHMENT AT LEFT FOOT, PARTIAL 1ST RAY, OPEN APPROACH (06/01/15) DETACHMENT AT LEFT FOOT, PARTIAL 2ND RAY, OPEN APPROACH (06/01/15) DETACHMENT AT LEFT FOOT, PARTIAL 3RD RAY, OPEN APPROACH (06/01/15) DETACHMENT AT LEFT FOOT, PARTIAL 4TH RAY, OPEN APPROACH (06/01/15) DETACHMENT AT LEFT FOOT, PARTIAL 5TH RAY, OPEN APPROACH (06/01/15) DETACHMENT AT RIGHT 5TH TOE, HIGH, OPEN APPROACH (01/15/17) DETACHMENT AT RIGHT LOWER LEG, HIGH, OPEN APPROACH (03/27/17) DILATE R FEM ART W INTRALUM DEV, DRUG BLLN, PERC (01/15/17) DILATION OF L EXT ILIAC ART WITH INTRALUM DEV, PERC APPROACH (06/01/15) DILATION OF L FEM ART WITH INTRALUM DEV, PERC APPROACH (05/08/15) DILATION OF L FOOT ART WITH INTRALUM DEV, PERC APPROACH (05/08/15) EXCISION OF L FOOT SUBCU/FASCIA, OPEN APPROACH (07/06/15) EXCISION OF SIGMOID COLON, OPEN APPROACH (11/16/15) EXTIRPATION OF MATTER FROM L EXT ILIAC ART, PERC APPROACH (06/01/15) EXTIRPATION OF MATTER FROM R FEM ART, PERC APPROACH (01/15/17) FLUOROSCOPY OF R LOW EXTREM ART USING L OSM CONTRAST (03/27/17) FLUOROSCOPY OF SUPERIOR VENA CAVA, GUIDANCE (07/06/15) INSERTION OF INFUSION DEV INTO SUP VENA CAVA, PERC APPROACH (03/27/17) INTRODUCE LOCAL ANESTH IN PERIPH NRV, PLEXI, PERC (11/16/15) INTRODUCE OTH ANTI-INFECT IN CENTRAL VEIN, PERC (03/27/17) INTRODUCE OTH THROMBOLYTIC IN PERIPH VEIN, PERC (06/01/15) REPAIR BLADDER, OPEN APPROACH (11/16/15) ULTRASONOGRAPHY OF SUPERIOR VENA CAVA, GUIDANCE (03/27/17) Family History: States: Unknown Family Hx - Social History Hx Tobacco Use: Yes Hx Alcohol Use: Yes Hx Substance Use: Yes - Immunization History Hx Tetanus Toxoid Vaccination: Yes Hx Influenza Vaccination: Yes Hx Pneumococcal Vaccination: No Review Of Systems Constitutional: Positive for: Weakness (generalized). Negative for: Fever Eyes: Negative for: Vision Change Cardiovascular: Negative for: Chest Pain, Palpitations, Light Headedness Respiratory: Positive for: Shortness of Breath (chronic per pt). Negative for: Cough Gastrointestinal: Negative for: Vomiting, Abdominal Pain, Diarrhea Neurological: Negative for: Weakness, Numbness, Headache, Dizziness Physical Exam - Physical Exam Appears: Non-toxic, No Acute Distress Skin: Warm, Dry, Rash (Dermatitis burn to the neck, from radiation) Head: Atraumatic, Normacephalic Eye(s): bilateral: PERRL, EOMI, Conjunctiva Pale Oral Mucosa: Moist Neck: Normal ROM Chest: Symmetrical Cardiovascular: Rhythm Regular, No Murmur Respiratory: Normal Breath Sounds, No Rales, No Rhonchi, No Wheezing Gastrointestinal/Abdominal: Soft, No Tenderness, No Distention Extremity: Bilateral: Normal Color And Temperature, Other (Bilateral AKA) Neurological/Psych: Oriented x3, Normal Speech ED Course And Treatment - Laboratory Results Result Diagrams: 04/22/18 18:34 04/22/18 18:34 Lab Interpretation: Abnormal (Hgb 7.5, BUN 62, Cr 2.4) O2 Sat by Pulse Oximetry: 98 (RA) Pulse Ox Interpretation: Normal Progress Note: Ordered repeat CBC, CMP, and blood type/screen. - Physician Consult Information Time Consulting Physician Contacted: 19:21 Physician Contacted: Jagdeep Lee Outcome Of Conversation: Eli to lisa admitted to his service for transfusion and surgical consultation for a port insertion. Disposition - Disposition Disposition: HOSPITALIZED Disposition Time: 19:22 Condition: STABLE - POA Present On Arrival: None - Clinical Impression Clinical Impression: Anemia, Renal insufficiency, Throat cancer - Scribe Statement The provider has reviewed the documentation as recorded by the Consuelo Mcconnell Provider Attestation: All medical record entries made by the Consuelo were at my direction and personally dictated by me. I have reviewed the chart and agree that the record accurately reflects my personal performance of the history, physical exam, medical decision making, and the department course for this patient. I have also personally directed, reviewed, and agree with the discharge instructions and disposition.
[2018-04-22 18:39] LABS: BASO % 0.5 % (0.0-2.0); EOS % 0.3 % (0.0-4.0); LYMPH # 0.3 K/uL (1.0-4.3); LYMPH % 4.4 % (20.0-40.0); MEAN CELL VOLUME 99.2 fL (80.0-94.0); MEAN CORPUSCULAR HEMOGLOBIN 32.4 pg (27.0-31.0); MEAN CORPUSCULAR HGB CONC 32.7 g/dL (33.0-37.0); MEAN PLATELET VOLUME 9.1 fL (7.2-11.7); MONO # 0.3 K/uL (0.0-0.8); NEUT # 5.9 K/uL (1.8-7.0); NEUT % 90.8 % (50.0-75.0); PLATELET COUNT 134 K/uL (130-400); RBC 2.32 Mil/uL (4.40-5.90); RED CELL DISTRIBUTION WIDTH 14.9 % (11.5-14.5); WHITE BLOOD COUNT 6.5 K/uL (4.8-10.8)
[2018-04-22 18:44] LABS: HEMOGLOBIN 7.5 g/dL (12.0-18.0)
[2018-04-22 18:56] LABS: ALB/GLOB RATIO 1.2 (1.0-2.1); ALBUMIN 3.5 g/dL (3.5-5.0); CALCIUM 6.9 mg/dl (8.6-10.4)
--- NOTE | 2018-04-22 20:08 | CP.PCM.CON ---
History of Present Illness - History of Present Illness History of Present Illness: Vascular Surgery Dr. Fernández 53 y/o M w/ PMHx throat ca, on chemo/XRT presents to [facility] at the direction of his PMD for acute anemia. Per the pt, he was at transfusion center today for scheduled chemo/XRT. Pt c/o of fatigue and found to be anemic. Transfusing also c/o poor venous access due to frequent transfusion. PMD requesting Portacath placement for continued chemo/XRT. Pt reports poor appetite, nausea, diarrhea. denies recent illness, F/C, CP, SOB, vomiting. PMHx: PAD, Anxiety, asthma/COPD, DM, HTN, HLD, gastritis, diverticulitis Meds: reviewed in chart NKDA PSHx: R BKA, R SFA stenting (01/2017), Left AKA (07/2015), Ex Lap LAR, bowel resection, repair of colovesicular fistula (11/2015), Fem-Fem bypass (2011), SHx: former smoker (1-1.5ppd x40yrs), social EtOH (former 1 pint of vodka per day), occasional marijuana use FHx: noncontributory Review of Systems - Review of Systems All systems: reviewed and no additional remarkable complaints except (see HPI) Past Patient History - Infectious Disease Hx of Infectious Diseases: None - Past Medical History & Family History Past Medical History?: Yes - Past Social History Smoking Status: Former Smoker - CARDIAC Hx Hypercholesterolemia: Yes Hx Hypertension: Yes - PULMONARY Hx Asthma: Yes Hx Chronic Obstructive Pulmonary Disease (COPD): Yes - NEUROLOGICAL Hx Neurological Disorder: No - HEENT Hx HEENT Problems: No - RENAL Hx Chronic Kidney Disease: No - ENDOCRINE/METABOLIC Hx Endocrine Disorders: Yes Hx Diabetes Mellitus Type 2: Yes - HEMATOLOGICAL/ONCOLOGICAL Hx Blood Disorders: Yes Hx Cancer: Yes (THROAT CANCER) Hx Chemotherapy: Yes (AND RADIATION) - INTEGUMENTARY Hx Dermatological Problems: Yes Other/Comment: PT HAS BROWN SPOTS ON ARMS AND BACK 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 - MUSCULOSKELETAL/RHEUMATOLOGICAL Hx Musculoskeletal Disorders: No Hx Falls: No - GASTROINTESTINAL Hx Diverticulitis: Yes Hx Gastritis: Yes - GENITOURINARY/GYNECOLOGICAL Hx Genitourinary Disorders: Yes Hx Urinary Tract Infection: Yes - PSYCHIATRIC Hx Anxiety: Yes Hx Depression: Yes Hx Substance Use: Yes - SURGICAL HISTORY Hx Surgeries: Yes Hx Amputation: Yes (LEFT AKA, RIGHT BTK) Hx Angiogram: Yes Hx Cardiac Catheterization: Yes Hx Femoral-Popliteal Bypass Graft: Yes (X3) Hx Vascular Surgery: Yes Other/Comment: Vascular bypass surgery femoral bilateral X6 - ANESTHESIA Hx Anesthesia: Yes Hx Anesthesia Reactions: No Hx Malignant Hyperthermia: No Meds Allergies/Adverse Reactions: Allergies Allergy/AdvReac Type Severity Reaction Status Date / Time No Known Allergies Allergy Verified 04/22/18 17:22 - Medications Medications: Current Medications Acetaminophen (Tylenol 325mg Tab) 650 mg PO Q6 PRN PRN Reason: Pain, Mild (1-3) Carvedilol (Coreg) 25 mg PO BID [facility] Clopidogrel Bisulfate (Plavix) 75 mg PO DAILY [facility] Enoxaparin Sodium (Lovenox) 40 mg SC DAILY [facility] Gabapentin (Neurontin) 300 mg PO TID [facility] Calcium Gluconate 4.65 meq/ (Sodium Chloride) 110 mls @ 100 mls/hr IV ONCE ONE Stop: 04/22/18 20:18 Insulin Glargine (Lantus) 35 unit SC Q12 [facility] Insulin Human Regular (Novolin R) 0 unit SC ACHS [facility]CE[facility]; Protocol Lidocaine (Lidoderm) 1 ea TD Q24H [facility] Losartan Potassium (Cozaar) 25 mg PO DAILY [facility] Rosuvastatin Calcium (Crestor) 5 mg PO HS [facility] Sennosides (Senokot Tab) 8.6 mg PO DAILY [facility] Thiamine HCl (Vitamin B1 Tab) 100 mg PO DAILY [facility] Zolpidem Tartrate (Ambien) 5 mg PO HS PRN PRN Reason: Insomnia Physical Exam - Constitutional Appears: Non-toxic, No Acute Distress - Head Exam Head Exam: NORMAL INSPECTION - Eye Exam Eye Exam: Normal appearance - ENT Exam ENT Exam: Mucous Membranes Moist - Neck Exam Additional comments: radiation burn to anterior neck - Respiratory Exam Respiratory Exam: NORMAL BREATHING PATTERN. absent: Accessory Muscle Use, Respiratory Distress - Cardiovascular Exam Cardiovascular Exam: REGULAR RHYTHM. absent: Bradycardia, Tachycardia - GI/Abdominal Exam GI & Abdominal Exam: Soft. absent: Distended, Tenderness - Extremities Exam Additional comments: L AKA R BKA - Neurological Exam Neurological exam: Alert, Oriented x3 - Psychiatric Exam Psychiatric exam: Normal Affect, Normal Mood - Skin Skin Exam: Dry, Intact, Warm Results - Vital Signs Recent Vital Signs: Last Vital Signs Temp 98.8 F 04/22/18 19:21 Pulse 101 H 04/22/18 19:21 Resp 20 04/22/18 19:21 BP 129/89 04/22/18 19:21 Pulse Ox 98 04/22/18 19:23 - Labs Result Diagrams: 04/22/18 18:34 04/22/18 18:34 Labs: Laboratory Results - last 24 hr 04/22/18 04/22/18 04/22/18 18:34 18:34 18:34 WBC 6.5 D RBC 2.32 L Hgb 7.5 L D Hct 23.0 L MCV 99.2 H MCH 32.4 H MCHC 32.7 L RDW 14.9 H Plt Count 134 MPV 9.1 Neut % (Auto) 90.8 H Lymph % (Auto) 4.4 L [place] % (Auto) 4.0 Eos % (Auto) 0.3 Baso % (Auto) 0.5 Neut # (Auto) 5.9 Lymph # (Auto) 0.3 L [place] # (Auto) 0.3 Eos # (Auto) 0.0 Baso # (Auto) 0.0 Sodium 140 Potassium 3.9 Chloride 102 Carbon Dioxide 25 Anion Gap 16 BUN 62 H Creatinine 2.4 H Est GFR ( Amer) 34 Est GFR (Non-Af Amer) 28 Random Glucose 139 H D Calcium 6.9 L Total Bilirubin 0.6 AST 13 L D ALT 11 L D Alkaline Phosphatase 66 Total Protein 6.3 Albumin 3.5 Globulin 2.9 Albumin/Globulin Ratio 1.2 Blood Type A POSITIVE Antibody Screen Negative Assessment & Plan - Assessment and Plan (Free Text) Assessment: 53 y/o M w/ anemia and poor IV access 2/2 chemo/XRT for neck ca Plan: - transfuse per PMD - NPO@[place] - f/u AM labs - plan for portacath placement 04/23 TF scheduled cases Pt discussed w/ Dr. Pradeep Blum DO PGY3
[2018-04-22 20:12] LABS: BANDS 1 % (0-2); LYMPHOCYTE 4 % (20-40); MONOCYTE 3 % (0-10); NEUTROPHIL 92 % (50-75); TOTAL CELLS COUNTED 100
[2018-04-22 20:13] LABS: PLATELET ESTIMATE NORMAL (NORMAL)
--- NOTE | 2018-04-22 21:08 | CP.PCM.HP ---
Present on Admission - Present on Admission Any Indicators Present on Admission: No Past Patient History - Infectious Disease Hx of Infectious Diseases: None - Past Medical History & Family History Past Medical History?: Yes - Past Social History Smoking Status: Current Some Days Smoker - CARDIAC Hx Hypercholesterolemia: Yes Hx Hypertension: Yes - PULMONARY Hx Asthma: Yes Hx Chronic Obstructive Pulmonary Disease (COPD): Yes - NEUROLOGICAL Hx Neurological Disorder: No - HEENT Hx HEENT Problems: No - RENAL Hx Chronic Kidney Disease: No - ENDOCRINE/METABOLIC Hx Endocrine Disorders: Yes Hx Diabetes Mellitus Type 2: Yes - HEMATOLOGICAL/ONCOLOGICAL Hx Blood Disorders: Yes Hx Cancer: Yes (THROAT CANCER) Hx Chemotherapy: Yes (AND RADIATION) - INTEGUMENTARY Hx Dermatological Problems: Yes Other/Comment: PT HAS BROWN SPOTS ON ARMS AND BACK 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 - MUSCULOSKELETAL/RHEUMATOLOGICAL Hx Falls: No - GASTROINTESTINAL Hx Diverticulitis: Yes Hx Gastritis: Yes - GENITOURINARY/GYNECOLOGICAL Hx Genitourinary Disorders: Yes Hx Urinary Tract Infection: Yes - PSYCHIATRIC Hx Substance Use: Yes (SMOKE WEEDS) - SURGICAL HISTORY Hx Surgeries: Yes Hx Amputation: Yes (LEFT AKA, RIGHT BTK) Hx Angiogram: Yes Hx Cardiac Catheterization: Yes Hx Femoral-Popliteal Bypass Graft: Yes (X3) Hx Vascular Surgery: Yes Other/Comment: Vascular bypass surgery femoral bilateral X6 - ANESTHESIA Hx Anesthesia: Yes Hx Anesthesia Reactions: No Hx Malignant Hyperthermia: No Meds Allergies/Adverse Reactions: Allergies Allergy/AdvReac Type Severity Reaction Status Date / Time No Known Allergies Allergy Verified 04/22/18 17:22 Results - Vital Signs Recent Vital Signs: Last Vital Signs Temp 99.5 F 04/22/18 20:17 Pulse 86 04/22/18 20:17 Resp 20 04/22/18 20:17 BP 128/80 04/22/18 20:17 Pulse Ox 99 04/22/18 20:17 - Labs Result Diagrams: 04/22/18 18:34 04/22/18 18:34 Labs: Laboratory Results - last 24 hr 04/22/18 04/22/18 04/22/18 18:34 18:34 18:34 WBC 6.5 D RBC 2.32 L Hgb 7.5 L D Hct 23.0 L MCV 99.2 H MCH 32.4 H MCHC 32.7 L RDW 14.9 H Plt Count 134 MPV 9.1 Neut % (Auto) 90.8 H Lymph % (Auto) 4.4 L [place] % (Auto) 4.0 Eos % (Auto) 0.3 Baso % (Auto) 0.5 Neut # (Auto) 5.9 Lymph # (Auto) 0.3 L [place] # (Auto) 0.3 Eos # (Auto) 0.0 Baso # (Auto) 0.0 Neutrophils % (Manual) 92 H Band Neutrophils % 1 Lymphocytes % (Manual) 4 L Monocytes % (Manual) 3 Platelet Estimate Normal Sodium 140 Potassium 3.9 Chloride 102 Carbon Dioxide 25 Anion Gap 16 BUN 62 H Creatinine 2.4 H Est GFR ( Amer) 34 Est GFR (Non-Af Amer) 28 Random Glucose 139 H D Calcium 6.9 L Total Bilirubin 0.6 AST 13 L D ALT 11 L D Alkaline Phosphatase 66 Total Protein 6.3 Albumin 3.5 Globulin 2.9 Albumin/Globulin Ratio 1.2 Blood Type A POSITIVE Antibody Screen Negative
[2018-04-22] MEDS: Oxycodone/Acetaminophen 5/325 mg Tab PO PRN (21:31)
[2018-04-22] MEDS: (Novolin R) Insulin Human Regular 100 units/ml vial SC SCH (21:35)
[2018-04-22] MEDS: (Lantus) Insulin Glargine, Recombinant SC SCH (21:36)
[2018-04-22] MEDS: Lidocaine 5% Patch TD SCH (21:36)
[2018-04-22] MEDS: guaiFENesin 600 mg ER Tab PO SCH (21:39)
[2018-04-22] MEDS: Silver Sulfadiazine 1% Cream (20 gm) TOP SCH (22:57)
[2018-04-23] MEDS: Oxycodone/Acetaminophen 5/325 mg Tab PO PRN ×2 (05:44→16:20)
--- NOTE | 2018-04-23 05:46 | HP ---
CHIEF COMPLAINT: Weakness and pallor. HISTORY OF PRESENT ILLNESS: This is a 53-year-old male well-known to me with history of throat cancer, on chemoradiation therapy; hypertension; hyperlipidemia; type 2 diabetes, on insulin. He is a chronic heavy smoker. He is compliant with his thyroid medication and followup. He drinks at times. In the real status he is homebound, wheelchair bound. He has bilateral legs amputation, right above-knee and left below-knee amputation done on different times, he uses prosthesis and he is fully dependent on his family members for mobility. He is right now undergoing chemo and radiation therapy with our plastic injection mold maker, oncologist in [place]. The patient came in because he is weak, he is pale, and he has resting dyspnea on exertion. The patient was found to be anemic in the hematology/oncology clinic and he was referred to the hospital for blood transfusion. He also has poor venous access and he needs Port-A-Cath. He has chronic cough. He denies any sputum production. He has sore throat. He has fever, chills. ALLERGIES: UNKNOWN ALLERGIES. CURRENT MEDICATIONS: He is on carvedilol, Lantus, Ambien, Crestor, Zofran, Coreg, multivitamin, Cozaar, Lidoderm, atorvastatin, Atrovent HFA, NovoLog, Neurontin, Plavix, Tylenol, prednisone. SOCIAL HISTORY: He smokes. He drinks. FAMILY HISTORY: Negative for early age COPD. PHYSICAL EXAMINATION: GENERAL: A middle-aged male in minimal distress. He looks pale. He has erythema around his neck. VITAL SIGNS: Blood pressure 128/80, pulse 86, respiratory rate 20, temperature 99.5. SKIN: The patient has redness, which is in the form of a long horizontal ring around his neck at the site he had radiation therapy. HEENT: Atraumatic, normocephalic. Positive pallor. Negative jaundice. Extraocular movements are intact. NECK: Supple. No JVD. No lymph nodes. No thyromegaly. No carotid bruits. CHEST WALL: Bilateral symmetrical expansion. No tenderness. No deformity. LUNGS: Bilateral inspiratory and expiratory rhonchi. Decreased air entry. CARDIOVASCULAR SYSTEM: S1 and S2, regular. No heave. No thrill. ABDOMEN: Soft, nontender. Bowel sounds are positive. EXTREMITIES: Right above-knee and left below-knee amputation where amputation stumps are clean. CENTRAL NERVOUS SYSTEM: Awake, alert, and oriented x3. Cranial nerves II-XII are normal. Power 5/5 x4. Plantars are downgoing. ASSESSMENT: 1. Anemia which is chemoradiation-induced, less likely to be gastrointestinal bleed as there is no history. 2. Cancer of throat, on chemoradiation. 3. Radiation-induced burn around the neck. 4. Type 2 diabetes. 5. Hypertension. PLAN: Admit. Blood transfusion. Hem-Onc evaluation. Monitor the patient. Jagdeep Lee MD
[2018-04-23 06:37] LABS: HEMOGLOBIN 7.7 g/dL (12.0-18.0); MEAN CELL VOLUME 99.3 fL (80.0-94.0); MEAN CORPUSCULAR HEMOGLOBIN 32.9 pg (27.0-31.0); MEAN CORPUSCULAR HGB CONC 33.1 g/dL (33.0-37.0); MEAN PLATELET VOLUME 9.1 fL (7.2-11.7); RBC 2.34 Mil/uL (4.40-5.90); WHITE BLOOD COUNT 6.1 K/uL (4.8-10.8)
[2018-04-23 07:06] LABS: INR 1.3; PROTHROMBIN TIME 14.7 SECONDS (9.7-12.2)
[2018-04-23 07:30] LABS: CALCIUM 7.3 mg/dl (8.6-10.4)
[2018-04-23] MEDS: (Novolin R) Insulin Human Regular 100 units/ml vial SC SCH ×4 (07:41→22:28)
[2018-04-23] MEDS: guaiFENesin 600 mg ER Tab PO SCH ×2 (09:07→17:07)
[2018-04-23] MEDS: (Lantus) Insulin Glargine, Recombinant SC SCH ×2 (09:09→22:00)
[2018-04-23] MEDS: Silver Sulfadiazine 1% Cream (20 gm) TOP SCH ×2 (09:10→17:08)
[2018-04-23] MEDS ORDERED: Enoxaparin 30 mg Syringe SC SCH (10:00)
[2018-04-23] MEDS ORDERED: HEPARIN-NS 5,000 UNITS/500 ML 5,000 UNIT/500 ML BAG IV ONE (11:37)
[2018-04-23] MEDS ORDERED: Lidocaine 2% MPF (5 ml) Inj ONE ×3 (11:38→12:35)
[2018-04-23] MEDS ORDERED: Midazolam 2 MG/2 ML VIAL ONE (12:00)
[2018-04-23] MEDS ORDERED: Propofol 10 mg/ml Inj (20 ML) ONE (12:01)
--- NOTE | 2018-04-23 12:53 | PCM.SURG1 ---
<Matt Gallardo - Last Filed: 04/23/18 12:51> Surgeon's Initial Post Op Note - Surgeon's Notes Surgeon: MD Pradeep Radiologist Diagnostic: Sami, PGY3 Pre-Operative Diagnosis: Throat cancer Operative Findings: right Internal jugular vein Post-Operative Diagnosis: Throat cancer Operation Performed: Right IJ Portacath Specimen/Specimens Removed: none Estimated Blood Loss: EBL {In ML}: 20 Date of Surgery/Procedure: 04/23/18 Time of Surgery/Procedure: 12:00 <Ridge Fernández Jr. - Last Filed: 04/24/18 19:01> Surgeon's Initial Post Op Note - Surgeon's Notes Operation Performed: with ultrasound guidance
[2018-04-23] MEDS ORDERED: HYDROmorphone 0.5 mg/0.5 ml ISec IVP PRN (12:58)
--- NOTE | 2018-04-23 13:27 | RAD ---
Date of service: 04/23/2018 HISTORY: post portacath COMPARISON: 02/10/2018. FINDINGS: Right MediPort identified inserted in the interval with the tip turning the right atrium via right internal jugular approach. LUNGS: No active pulmonary disease. PLEURA: No significant pleural effusion identified, no pneumothorax apparent. CARDIOVASCULAR: No aortic atherosclerotic calcification present. Stable relatively prominent appearing cardiac silhouette. No pulmonary vascular congestion nevertheless. OSSEOUS STRUCTURES: No significant abnormalities. VISUALIZED UPPER ABDOMEN: Normal. OTHER FINDINGS: None. IMPRESSION: Interval right MediPort insertion as discussed above. No pneumothorax. No acute cardiopulmonary disease identified in the interval.
[2018-04-23] MEDS: Lactated Ringer's 1,000 ML IV SCH ×2 (14:17→21:10)
--- NOTE | 2018-04-23 14:57 | US ---
Date of service: 04/23/2018 PROCEDURE: Ultrasound of the Kidneys HISTORY: pascual COMPARISON: CT abdomen and pelvis performed 02/10/18 TECHNIQUE: Sonogram of the kidneys. FINDINGS: RIGHT KIDNEY: Measures: 10.8 x 5.7 x 5.7 cm. No obstructing calculus, hydronephrosis, or renal cyst identified. LEFT KIDNEY: Measures: 11.7 x 6.5 x 5.9 cm. No obstructing calculus, hydronephrosis, or renal cyst identified. OTHER FINDINGS: Decompressed urinary bladder precludes adequate evaluation. Incidental note is made of echogenic hepatic parenchyma. Echogenic liver may be seen in setting of hepatic parenchymal disease or fatty infiltration. IMPRESSION: No evidence of hydronephrosis, obstructing renal calculus, or renal cyst. Incidental note is made of echogenic hepatic parenchyma. Echogenic liver may be seen in setting of hepatic parenchymal disease or fatty infiltration.
--- NOTE | 2018-04-23 15:55 | RAD ---
Date of service: 04/23/2018 PROCEDURE: Intraoperative Fluoroscopy. HISTORY: Colon cancer FINDINGS: Fluoroscopic assistance was provided for right-sided Port-A-Cath placement. Please refer to the operative report from HERMINIO Fitch.
[2018-04-23] MEDS ORDERED: Aluminum Hydroxide/Magnesium Hydroxide Susp (30 mL) PO ONE (16:15)
[2018-04-23] MEDS: Enoxaparin 30 mg Syringe SC SCH (18:59)
[2018-04-23] MEDS: Lidocaine 5% Patch TD SCH (19:00)
[2018-04-23] MEDS: Magnesium Sulfate 1 gm in D5W 1 GM/100 ML BAG IVPB SCH ×2 (19:00→19:35)
--- NOTE | 2018-04-23 19:29 | CP.PCM.CON ---
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 Per the pt, he was at transfusion center today for scheduled chemo/XRT. Pt c/o of fatigue and found to be anemic, needing transfusion and Portacath placement for continued chemo/XRT. Pt reports poor appetite, nausea, diarrhea. denies recent illness, F/C, CP, SOB, vomiting. PMHx: PAD, Anxiety, asthma/COPD, DM, HTN, HLD, gastritis, diverticulitis Meds: reviewed in chart NKDA PSHx: R BKA, R SFA stenting (01/2017), Left AKA (07/2015), Ex Lap LAR, bowel resection, repair of colovesicular fistula (11/2015), Fem-Fem bypass (2011), SHx: former smoker (1-1.5ppd x40yrs), social EtOH (former 1 pint of vodka per day), occasional marijuana use FHx: noncontributory Review of Systems - Review of Systems All systems: reviewed and no additional remarkable complaints except (see HPI) Past Patient History - Infectious Disease Hx of Infectious Diseases: None - Past Medical History & Family History Past Medical History?: Yes - Past Social History Smoking Status: Current Some Days Smoker - CARDIAC Hx Hypercholesterolemia: Yes Hx Hypertension: Yes - PULMONARY Hx Asthma: Yes Hx Chronic Obstructive Pulmonary Disease (COPD): Yes - NEUROLOGICAL Hx Neurological Disorder: No - HEENT Hx HEENT Problems: No - RENAL Hx Chronic Kidney Disease: No - ENDOCRINE/METABOLIC Hx Endocrine Disorders: Yes Hx Diabetes Mellitus Type 2: Yes - HEMATOLOGICAL/ONCOLOGICAL Hx Blood Disorders: Yes Hx Cancer: Yes (THROAT CANCER) Hx Chemotherapy: Yes (AND RADIATION) - INTEGUMENTARY Hx Dermatological Problems: Yes Other/Comment: PT HAS BROWN SPOTS ON ARMS AND BACK 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 - MUSCULOSKELETAL/RHEUMATOLOGICAL Hx Falls: No - GASTROINTESTINAL Hx Diverticulitis: Yes Hx Gastritis: Yes - GENITOURINARY/GYNECOLOGICAL Hx Genitourinary Disorders: Yes Hx Urinary Tract Infection: Yes - PSYCHIATRIC Hx Substance Use: Yes (SMOKE WEEDS) - SURGICAL HISTORY Hx Surgeries: Yes Hx Amputation: Yes (LEFT AKA, RIGHT BTK) Hx Angiogram: Yes Hx Cardiac Catheterization: Yes Hx Femoral-Popliteal Bypass Graft: Yes (X3) Hx Vascular Surgery: Yes Other/Comment: Vascular bypass surgery femoral bilateral X6 - ANESTHESIA Hx Anesthesia: Yes Hx Anesthesia Reactions: No Hx Malignant Hyperthermia: No Meds Allergies/Adverse Reactions: Allergies Allergy/AdvReac Type Severity Reaction Status Date / Time No Known Allergies Allergy Verified 04/22/18 17:22 - Medications Medications: Current Medications Acetaminophen (Tylenol 325mg Tab) 650 mg PO Q6 PRN PRN Reason: Pain, Mild (1-3) Carvedilol (Coreg) 25 mg PO BID [facility] Last Admin: 04/23/18 17:02 Dose: 25 mg Clopidogrel Bisulfate (Plavix) 75 mg PO DAILY [facility] Enoxaparin Sodium (Lovenox) 30 mg SC DAILY [facility] Last Admin: 04/23/18 18:59 Dose: 30 mg Gabapentin (Neurontin) 300 mg PO TID [facility] Last Admin: 04/23/18 17:07 Dose: 300 mg Guaifenesin (Mucinex La) 600 mg PO BID [facility] Last Admin: 04/23/18 17:07 Dose: 600 mg Ceftriaxone Sodium 1 gm/ (Sodium Chloride) 100 mls @ 100 mls/hr IVPB DAILY [facility]; Protocol Last Admin: 04/23/18 09:19 Dose: 100 mls/hr Lactated Ringer's (Lactated Ringer's) 1,000 mls @ 100 mls/hr IV .Q10H [facility] Last Admin: 04/23/18 14:17 Dose: Not Given Magnesium Sulfate/Dextrose (Magnesium Sulfate 1 Gm/100 Ml D5w) 1 gm in 100 mls @ 100 mls/hr IVPB Q1H [facility] Stop: 04/23/18 20:44 Last Admin: 04/23/18 19:00 Dose: 100 mls/hr Insulin Glargine (Lantus) 35 unit SC Q12 [facility] Last Admin: 04/23/18 09:09 Dose: Not Given Insulin Human Regular (Novolin R) 0 unit SC ACHS [facility]; Protocol Last Admin: 04/23/18 16:30 Dose: 1 units Lidocaine (Lidoderm) 1 ea TD Q24H [facility] Last Admin: 04/22/18 21:36 Dose: Not Given Losartan Potassium (Cozaar) 25 mg PO DAILY [facility] Last Admin: 04/23/18 09:07 Dose: 25 mg Oxycodone/Acetaminophen (Percocet 5/325 Mg Tab) 2 tab PO Q4H PRN PRN Reason: Pain, severe (8-10) Stop: 04/25/18 21:06 Last Admin: 04/23/18 16:20 Dose: 2 tab Pantoprazole Sodium (Protonix Inj) 40 mg IVP DAILY [facility] Last Admin: 04/23/18 16:00 Dose: 40 mg Rosuvastatin Calcium (Crestor) 5 mg PO HS [facility] Last Admin: 04/22/18 21:30 Dose: 5 mg Sennosides (Senokot Tab) 8.6 mg PO DAILY [facility] Last Admin: 04/23/18 09:07 Dose: 8.6 mg Silver Sulfadiazine (Silvadene 1% 20 Gm) 0 ea TOP BID [facility] Last Admin: 04/23/18 17:08 Dose: 1 applic Thiamine HCl (Vitamin B1 Tab) 100 mg PO DAILY [facility] Last Admin: 04/23/18 09:07 Dose: 100 mg Zolpidem Tartrate (Ambien) 5 mg PO HS PRN PRN Reason: Insomnia Last Admin: 04/22/18 21:30 Dose: 5 mg Results - Vital Signs Recent Vital Signs: Last Vital Signs Temp 100.4 F H 04/23/18 16:00 Pulse 91 H 04/23/18 16:00 Resp 20 04/23/18 16:00 BP 107/68 04/23/18 17:02 Pulse Ox 98 04/23/18 16:00 - Labs Result Diagrams: 04/23/18 06:26 04/23/18 06:26 Labs: Laboratory Results - last 24 hr 04/22/18 04/22/18 04/22/18 18:34 18:34 21:07 WBC RBC Hgb Hct MCV MCH MCHC RDW Plt Count MPV Neutrophils % (Manual) 92 H Band Neutrophils % 1 Lymphocytes % (Manual) 4 L Monocytes % (Manual) 3 Platelet Estimate Normal PT INR APTT Sodium Potassium Chloride Carbon Dioxide Anion Gap BUN Creatinine Est GFR ( Amer) Est GFR (Non-Af Amer) POC Glucose (mg/dL) 148 H Random Glucose Calcium Phosphorus Magnesium Blood Type A POSITIVE Antibody Screen Negative 04/23/18 04/23/18 04/23/18 06:26 06:26 06:26 WBC 6.1 RBC 2.34 L Hgb 7.7 L Hct 23.2 L MCV 99.3 H MCH 32.9 H MCHC 33.1 RDW 15.0 H Plt Count 114 L D MPV 9.1 Neutrophils % (Manual) Band Neutrophils % Lymphocytes % (Manual) Monocytes % (Manual) Platelet Estimate PT 14.7 H INR 1.3 APTT 28 Sodium 137 Potassium 4.1 Chloride 102 Carbon Dioxide 28 Anion Gap 12 BUN 60 H Creatinine 2.4 H Est GFR ( Amer) 34 Est GFR (Non-Af Amer) 28 POC Glucose (mg/dL) Random Glucose 127 H Calcium 7.3 L Phosphorus 3.7 Magnesium 1.5 L Blood Type Antibody Screen 04/23/18 04/23/18 04/23/18 07:07 11:03 13:00 WBC RBC Hgb Hct MCV MCH MCHC RDW Plt Count MPV Neutrophils % (Manual) Band Neutrophils % Lymphocytes % (Manual) Monocytes % (Manual) Platelet Estimate PT INR APTT Sodium Potassium Chloride Carbon Dioxide Anion Gap BUN Creatinine Est GFR ( Amer) Est GFR (Non-Af Amer) POC Glucose (mg/dL) 138 H 139 H 131 H Random Glucose Calcium Phosphorus Magnesium Blood Type Antibody Screen 04/23/18 16:36 WBC RBC Hgb Hct MCV MCH MCHC RDW Plt Count MPV Neutrophils % (Manual) Band Neutrophils % Lymphocytes % (Manual) Monocytes % (Manual) Platelet Estimate PT INR APTT Sodium Potassium Chloride Carbon Dioxide Anion Gap BUN Creatinine Est GFR ( Amer) Est GFR (Non-Af Amer) POC Glucose (mg/dL) 179 H Random Glucose Calcium Phosphorus Magnesium Blood Type Antibody Screen Assessment & Plan (1) Throat cancer Assessment and Plan: 53 yo man with tonsil cancer, metastatic to neck LN, getting chemo/RT, , with severe weakness, decreased urine output, severe anemia admitted for IV hydration, electrolyte replacement, blood transfusion, and portacath placement. Status: Acute
--- NOTE | 2018-04-23 22:13 | CP.PCM.PN ---
Subjective - Date & Time of Evaluation Date of Evaluation: 04/23/18 Time of Evaluation: 07:20 - Subjective Subjective: dictated Objective - Vital Signs/Intake and Output Vital Signs (last 24 hours): Temp Pulse Resp BP Pulse Ox 98.5 F 85 20 113/72 98 04/23/18 22:07 04/23/18 22:07 04/23/18 22:07 04/23/18 22:07 04/23/18 16:00 Intake and Output: 04/23/18 04/24/18 18:59 06:59 Intake Total 800 0 Output Total 450 Balance 350 0 - Medications Medications: Current Medications Acetaminophen (Tylenol 325mg Tab) 650 mg PO Q6 PRN PRN Reason: Pain, Mild (1-3) Last Admin: 04/23/18 20:37 Dose: 650 mg Carvedilol (Coreg) 25 mg PO BID [facility] Last Admin: 04/23/18 17:02 Dose: 25 mg Clopidogrel Bisulfate (Plavix) 75 mg PO DAILY [facility] Enoxaparin Sodium (Lovenox) 30 mg SC DAILY [facility] Last Admin: 04/23/18 18:59 Dose: 30 mg Gabapentin (Neurontin) 300 mg PO TID [facility] Last Admin: 04/23/18 17:07 Dose: 300 mg Guaifenesin (Mucinex La) 600 mg PO BID [facility] Last Admin: 04/23/18 17:07 Dose: 600 mg Ceftriaxone Sodium 1 gm/ (Sodium Chloride) 100 mls @ 100 mls/hr IVPB DAILY [facility]; Protocol Last Admin: 04/23/18 09:19 Dose: 100 mls/hr Lactated Ringer's (Lactated Ringer's) 1,000 mls @ 100 mls/hr IV .Q10H [facility] Last Admin: 04/23/18 21:10 Dose: 100 mls/hr Insulin Glargine (Lantus) 35 unit SC Q12 [facility] Last Admin: 04/23/18 09:09 Dose: Not Given Insulin Human Regular (Novolin R) 0 unit SC ACHS [facility]; Protocol Last Admin: 04/23/18 16:30 Dose: 1 units Lidocaine (Lidoderm) 1 ea TD Q24H [facility] Last Admin: 04/23/18 19:00 Dose: 1 ea Losartan Potassium (Cozaar) 25 mg PO DAILY [facility] Last Admin: 03/14/19 09:07 Dose: 25 mg Oxycodone/Acetaminophen (Percocet 5/325 Mg Tab) 2 tab PO Q4H PRN PRN Reason: Pain, severe (8-10) Stop: 04/25/18 21:06 Last Admin: 04/23/18 16:20 Dose: 2 tab Pantoprazole Sodium (Protonix Inj) 40 mg IVP DAILY [facility] Last Admin: 04/23/18 16:00 Dose: 40 mg Rosuvastatin Calcium (Crestor) 5 mg PO HS [facility] Last Admin: 04/23/18 21:09 Dose: 5 mg Sennosides (Senokot Tab) 8.6 mg PO DAILY [facility] Last Admin: 04/23/18 09:07 Dose: 8.6 mg Silver Sulfadiazine (Silvadene 1% 20 Gm) 0 ea TOP BID [facility] Last Admin: 04/23/18 17:08 Dose: 1 applic Thiamine HCl (Vitamin B1 Tab) 100 mg PO DAILY [facility] Last Admin: 04/23/18 09:07 Dose: 100 mg Zolpidem Tartrate (Ambien) 5 mg PO HS PRN PRN Reason: Insomnia Last Admin: 04/23/18 21:09 Dose: 5 mg - Labs Labs: 04/23/18 06:26 04/23/18 06:26 PT 14.7 SECONDS (9.7-12.2) H 04/23/18 06:26 INR 1.3 04/23/18 06:26 APTT 28 SECONDS (21-34) 04/23/18 06:26
--- NOTE | 2018-04-23 23:35 | OP ---
PROCEDURE DATE: 04/23/2018 PREOPERATIVE DIAGNOSIS: Lack of venous access. POSTOPERATIVE DIAGNOSIS: Lack of venous access. PROCEDURE: Placement of Port-A-Cath, right jugular vein, PowerPort type. SURGEON: Ridge Fernández Jr., MD. HEALTH INFORMATION TECHNICIAN: Chace Steve MD ANESTHESIOLOGIST: Gerald Vela CRNA INDICATIONS: The patient is a middle-aged man with a history of peripheral vascular disease and other smoking related diseases. He requires a port for chemotherapy. OPERATIVE FINDINGS: Catheter was inserted uneventfully via the jugular vein. DESCRIPTION OF PROCEDURE: The patient was given local anesthesia. Using ultrasound guidance and micropuncture technique, the right jugular vein was cannulated. Under fluoroscopic control, the guidewire was advanced centrally, an 0.35 wire. A sheath dilator was passed over this. A pocket was created on the right chest wall. Good hemostasis was obtained. We then originated the catheter on the right chest wall in the pocket, went through a tunnel, went through the jugular vein and terminated in the superior vena cava. This was flushed with heparinized saline and good return. Sterile compressive dressings were applied. Antibiotics were given prior to beginning the procedure and a standard skin prep was carried out. OPERATION CARRIED OUT: Port-A-Cath, PowerPort type right jugular vein with C-arm fluoroscopy and ultrasound guidance. Ultrasound images of the neck showed the vein was 14 mm in diameter with normal compressibility and no intraluminal thrombosis. Ridge Fernández Jr., MD
[2018-04-24] MEDS: Lactated Ringer's 1,000 ML IV SCH ×3 (05:42→17:34)
--- NOTE | 2018-04-24 06:25 | PN ---
DATE: 04/23/2018 SUBJECTIVE: The patient is status post Port-A-Cath. No fever. No chills. PHYSICAL EXAMINATION: VITAL SIGNS: Blood pressure 113/72, pulse 85, respiratory rate 20, temperature 98.5. LUNGS: Decreased air entry, positive rhonchi. CARDIOVASCULAR SYSTEM: S1, S2. Regular. No heave. No thrill. ABDOMEN: Soft, nontender. Bowel sounds are positive. CENTRAL NERVOUS SYSTEM: Awake, alert, oriented x3. ASSESSMENT: 1. Acute kidney injury, prerenal azotemia. Plan intravenous fluids, renal consult, urine culture, urine electrolytes. 2. Anemia which is chemotherapy induced, less likely to be gastrointestinal bleed. 3. . 4. Type 2 diabetes. PLAN: Blood transfusion. Antibiotics. Monitor the patient. Jagdeep Lee MD
[2018-04-24] MEDS: (Novolin R) Insulin Human Regular 100 units/ml vial SC SCH ×4 (07:49→21:18)
[2018-04-24] MEDS: (Lantus) Insulin Glargine, Recombinant SC SCH ×2 (09:44→21:41)
[2018-04-24] MEDS: guaiFENesin 600 mg ER Tab PO SCH ×2 (09:44→17:29)
[2018-04-24] MEDS: Enoxaparin 30 mg Syringe SC SCH (09:45)
[2018-04-24 09:52] LABS: CALCIUM 7.1 mg/dl (8.6-10.4)
[2018-04-24] MEDS: Oxycodone/Acetaminophen 5/325 mg Tab PO PRN ×2 (09:59→21:55)
[2018-04-24] MEDS: Silver Sulfadiazine 1% Cream (20 gm) TOP SCH ×2 (10:09→17:29)
[2018-04-24 10:19] LABS: BASO % 0.6 % (0.0-2.0); EOS % 0.1 % (0.0-4.0); HEMOGLOBIN 7.5 g/dL (12.0-18.0); LYMPH # 0.2 K/uL (1.0-4.3); LYMPH % 6.1 % (20.0-40.0); MEAN CORPUSCULAR HEMOGLOBIN 31.9 pg (27.0-31.0); MEAN CORPUSCULAR HGB CONC 33.1 g/dL (33.0-37.0); MEAN PLATELET VOLUME 8.5 fL (7.2-11.7); MONO # 0.3 K/uL (0.0-0.8); MONO % 8.9 % (0.0-10.0); NEUT # 2.5 K/uL (1.8-7.0); NEUT % 84.3 % (50.0-75.0); RBC 2.35 Mil/uL (4.40-5.90); RED CELL DISTRIBUTION WIDTH 15.7 % (11.5-14.5)
[2018-04-24 10:20] LABS: MEAN CELL VOLUME 96.3 fL (80.0-94.0); PLATELET COUNT 89 K/uL (130-400)
[2018-04-24 12:02] LABS: EOSINOPHIL 1 % (0-4); LYMPHOCYTE 6 % (20-40); MONOCYTE 6 % (0-10); NEUTROPHIL 87 % (50-75); TOTAL CELLS COUNTED 100
[2018-04-24 12:03] LABS: PLATELET ESTIMATE DECREASED (NORMAL)
[2018-04-24 12:04] LABS: HYPOCHROMIC SLIGHT
[2018-04-24] MEDS: Acetaminophen 650mg/20.3ml solution UD PO ONE ×2 (15:10→15:12)
[2018-04-24] MEDS: Lidocaine 2% Jelly (5 ml) TOP SCH (17:29)
--- NOTE | 2018-04-24 18:33 | CP.PCM.PN ---
Subjective - Date & Time of Evaluation Date of Evaluation: 04/24/18 Time of Evaluation: 18:30 - Subjective Subjective: The patient is doing much better, still not able to swallow and with some diarrhea. Improved kidney function. Plan- Additional PRBC transfusion, AM labs and further transfusion PRN. Resume RT on Friday Objective - Vital Signs/Intake and Output Vital Signs (last 24 hours): Temp Pulse Resp BP Pulse Ox 98.6 F 89 20 119/69 99 04/24/18 17:32 04/24/18 15:53 04/24/18 15:53 04/24/18 17:28 04/24/18 15:53 Intake and Output: 04/24/18 04/24/18 06:59 18:59 Intake Total 2116 800 Output Total 1200 Balance 916 800 - Medications Medications: Current Medications Acetaminophen (Tylenol 325mg Tab) 650 mg PO Q6 PRN PRN Reason: Pain, Mild (1-3) Last Admin: 04/23/18 20:37 Dose: 650 mg Carvedilol (Coreg) 25 mg PO BID [facility] Last Admin: 04/24/18 17:28 Dose: 25 mg Clopidogrel Bisulfate (Plavix) 75 mg PO DAILY [facility] Last Admin: 04/24/18 10:09 Dose: 75 mg Enoxaparin Sodium (Lovenox) 30 mg SC DAILY [facility] Last Admin: 04/24/18 09:45 Dose: 30 mg Gabapentin (Neurontin) 300 mg PO TID [facility] Last Admin: 04/24/18 17:29 Dose: 300 mg Guaifenesin (Mucinex La) 600 mg PO BID [facility] Last Admin: 04/24/18 17:29 Dose: 600 mg Ceftriaxone Sodium 1 gm/ (Sodium Chloride) 100 mls @ 100 mls/hr IVPB DAILY [facility]; Protocol Last Admin: 04/24/18 09:45 Dose: 100 mls/hr Lactated Ringer's (Lactated Ringer's) 1,000 mls @ 100 mls/hr IV .Q10H [facility] Last Admin: 04/24/18 17:34 Dose: Not Given Insulin Glargine (Lantus) 35 unit SC Q12 [facility] Last Admin: 04/24/18 09:44 Dose: Not Given Insulin Human Regular (Novolin R) 0 unit SC ACHS [facility]; Protocol Last Admin: 04/24/18 17:15 Dose: Not Given Lidocaine (Lidoderm) 1 ea TD Q24H [facility] Last Admin: 04/23/18 19:00 Dose: 1 ea Lidocaine HCl (Lidocaine Hydrochloride Jelly 2% 5 Ml) 1 ml TOP BID [facility] Last Admin: 04/24/18 17:29 Dose: 1 ml Losartan Potassium (Cozaar) 25 mg PO DAILY [facility] Last Admin: 04/24/18 09:43 Dose: 25 mg Oxycodone/Acetaminophen (Percocet 5/325 Mg Tab) 2 tab PO Q4H PRN PRN Reason: Pain, severe (8-10) Stop: 04/25/18 21:06 Last Admin: 04/24/18 09:59 Dose: 2 tab Pantoprazole Sodium (Protonix Inj) 40 mg IVP DAILY [facility] Last Admin: 04/24/18 09:41 Dose: 40 mg Rosuvastatin Calcium (Crestor) 5 mg PO HS [facility] Last Admin: 04/23/18 21:09 Dose: 5 mg Sennosides (Senokot Tab) 8.6 mg PO DAILY [facility] Last Admin: 04/24/18 09:44 Dose: Not Given Silver Sulfadiazine (Silvadene 1% 20 Gm) 0 ea TOP BID [facility] Last Admin: 04/24/18 17:29 Dose: 1 applic Thiamine HCl (Vitamin B1 Tab) 100 mg PO DAILY [facility] Last Admin: 04/24/18 09:44 Dose: 100 mg Zolpidem Tartrate (Ambien) 5 mg PO HS PRN PRN Reason: Insomnia Last Admin: 04/23/18 21:09 Dose: 5 mg - Labs Labs: 04/24/18 09:35 04/24/18 09:35 PT 14.7 SECONDS (9.7-12.2) H 04/23/18 06:26 INR 1.3 04/23/18 06:26 APTT 28 SECONDS (21-34) 04/23/18 06:26 Assessment and Plan (1) Throat cancer Status: Acute
[2018-04-24 18:43] LABS: HEMOGLOBIN 7.1 g/dL (12.0-18.0); RED CELL DISTRIBUTION WIDTH 15.5 % (11.5-14.5)
[2018-04-24 18:55] LABS: MEAN CELL VOLUME 95.8 fL (80.0-94.0); MEAN CORPUSCULAR HEMOGLOBIN 32.5 pg (27.0-31.0); MEAN PLATELET VOLUME 8.6 fL (7.2-11.7); RBC 2.19 Mil/uL (4.40-5.90); WHITE BLOOD COUNT 2.6 K/uL (4.8-10.8)
[2018-04-24 19:08] LABS: CALCIUM 7.2 mg/dl (8.6-10.4)
[2018-04-24] MEDS: Lidocaine 5% Patch TD SCH (19:29)
[2018-04-24] MEDS ORDERED: Acetaminophen 650mg/20.3ml solution UD PO STA (20:11)
[2018-04-24] MEDS ORDERED: Potassium Chloride 20 mEq/15 ml LIQ UD PO STA (21:38)
--- NOTE | 2018-04-24 21:59 | CP.PCM.PN ---
Subjective - Date & Time of Evaluation Date of Evaluation: 04/24/18 Time of Evaluation: 19:40 - Subjective Subjective: dictated Objective - Vital Signs/Intake and Output Vital Signs (last 24 hours): Temp Pulse Resp BP Pulse Ox 100.4 F H 84 18 121/76 99 04/24/18 21:54 04/24/18 21:54 04/24/18 21:54 04/24/18 21:54 04/24/18 15:53 Intake and Output: 04/24/18 04/25/18 18:59 06:59 Intake Total 800 279 Balance 800 279 - Medications Medications: Current Medications Acetaminophen (Tylenol 325mg Tab) 650 mg PO Q6 PRN PRN Reason: Pain, Mild (1-3) Last Admin: 04/23/18 20:37 Dose: 650 mg Albuterol/Ipratropium (Duoneb 3 Mg/0.5 Mg (3 Ml) Ud) 3 ml INH RQ6 [facility] Carvedilol (Coreg) 25 mg PO BID [facility] Last Admin: 04/24/18 17:28 Dose: 25 mg Clopidogrel Bisulfate (Plavix) 75 mg PO DAILY [facility] Last Admin: 04/24/18 10:09 Dose: 75 mg Enoxaparin Sodium (Lovenox) 30 mg SC DAILY [facility] Last Admin: 04/24/18 09:45 Dose: 30 mg Gabapentin (Neurontin) 300 mg PO TID [facility] Last Admin: 04/24/18 17:29 Dose: 300 mg Guaifenesin (Mucinex La) 600 mg PO BID [facility] Last Admin: 04/24/18 17:29 Dose: 600 mg Ceftriaxone Sodium 1 gm/ (Sodium Chloride) 100 mls @ 100 mls/hr IVPB DAILY [facility]; Protocol Last Admin: 04/24/18 09:45 Dose: 100 mls/hr Lactated Ringer's (Lactated Ringer's) 1,000 mls @ 100 mls/hr IV .Q10H [facility] Last Admin: 04/24/18 17:34 Dose: Not Given Insulin Glargine (Lantus) 35 unit SC Q12 [facility] Last Admin: 04/24/18 21:41 Dose: Not Given Insulin Human Regular (Novolin R) 0 unit SC ACHS [facility]; Protocol Last Admin: 04/24/18 21:18 Dose: Not Given Lidocaine (Lidoderm) 1 ea TD Q24H [facility] Last Admin: 04/24/18 19:29 Dose: 1 ea Lidocaine HCl (Lidocaine Hydrochloride Jelly 2% 5 Ml) 1 ml TOP BID [facility] Last Admin: 04/24/18 17:29 Dose: 1 ml Losartan Potassium (Cozaar) 25 mg PO DAILY [facility] Last Admin: 04/24/18 09:43 Dose: 25 mg Oxycodone/Acetaminophen (Percocet 5/325 Mg Tab) 2 tab PO Q4H PRN PRN Reason: Pain, severe (8-10) Stop: 04/25/18 21:06 Last Admin: 04/24/18 21:55 Dose: 2 tab Pantoprazole Sodium (Protonix Inj) 40 mg IVP DAILY [facility] Last Admin: 04/24/18 09:41 Dose: 40 mg Rosuvastatin Calcium (Crestor) 5 mg PO HS [facility] Last Admin: 04/24/18 21:56 Dose: 5 mg Sennosides (Senokot Tab) 8.6 mg PO DAILY [facility] Last Admin: 04/24/18 09:44 Dose: Not Given Silver Sulfadiazine (Silvadene 1% 20 Gm) 0 ea TOP BID [facility] Last Admin: 04/24/18 17:29 Dose: 1 applic Thiamine HCl (Vitamin B1 Tab) 100 mg PO DAILY [facility] Last Admin: 04/24/18 09:44 Dose: 100 mg Zolpidem Tartrate (Ambien) 5 mg PO HS PRN PRN Reason: Insomnia Last Admin: 04/23/18 21:09 Dose: 5 mg - Labs Labs: 04/24/18 18:38 04/24/18 18:38 PT 14.7 SECONDS (9.7-12.2) H 04/23/18 06:26 INR 1.3 04/23/18 06:26 APTT 28 SECONDS (21-34) 04/23/18 06:26
[2018-04-24] MEDS: Albuterol-Ipratrop 3 mg / 0.5 (3 ml) UD INH SCH (22:24)
[2018-04-25 00:28] VITALS: RESP 20
[2018-04-25] MEDS: Albuterol-Ipratrop 3 mg / 0.5 (3 ml) UD INH SCH ×3 (02:02→19:34)
--- NOTE | 2018-04-25 02:23 | PN ---
DATE: 04/24/2018 SUBJECTIVE: The patient is found to be having low-grade fever. No nausea or vomiting. The patient is status post transfusion of one unit of packed RBC with a hemoglobin persistently low of 7.1 with low potassium of 3.4. He is afebrile. No rectal bleeding. No nausea or vomiting. PHYSICAL EXAMINATION: VITAL SIGNS: Blood pressure 121/76, pulse 84, respiratory rate 18, temperature 100.4. LUNGS: Bilateral scattered rhonchi. CARDIOVASCULAR SYSTEM: S1 and S2, regular. ABDOMEN: Soft, nontender. Bowel sounds are positive. ASSESSMENT: 1. Fever, etiology pending which could be tracheobronchitis, less likely to be pneumonia. 2. Throat cancer, on chemoradiation. 3. Port-A-Cath insertion. 4. Type 2 diabetes. 5. Chronic obstructive pulmonary disease. PLAN: Nebulizer treatment. Antibiotics. Tylenol. Monitor the patient. Jagdeep Lee MD
[2018-04-25] MEDS: Lactated Ringer's 1,000 ML IV SCH ×3 (03:00→22:34)
[2018-04-25] MEDS: Oxycodone/Acetaminophen 5/325 mg Tab PO PRN ×2 (05:47→18:37)
[2018-04-25 06:51] LABS: BASO % 0.5 % (0.0-2.0); EOS % 0.6 % (0.0-4.0); HEMOGLOBIN 8.5 g/dL (12.0-18.0); LYMPH # 0.2 K/uL (1.0-4.3); LYMPH % 5.9 % (20.0-40.0); MEAN CELL VOLUME 94.7 fL (80.0-94.0); MEAN CORPUSCULAR HGB CONC 33.8 g/dL (33.0-37.0); MEAN PLATELET VOLUME 8.3 fL (7.2-11.7); MONO # 0.3 K/uL (0.0-0.8); MONO % 8.6 % (0.0-10.0); NEUT # 2.6 K/uL (1.8-7.0); NEUT % 84.4 % (50.0-75.0); PLATELET COUNT 70 K/uL (130-400); RBC 2.66 Mil/uL (4.40-5.90); RED CELL DISTRIBUTION WIDTH 15.6 % (11.5-14.5); WHITE BLOOD COUNT 3.1 K/uL (4.8-10.8)
[2018-04-25 07:01] LABS: CALCIUM 7.3 mg/dl (8.6-10.4)
[2018-04-25] MEDS: (Novolin R) Insulin Human Regular 100 units/ml vial SC SCH ×4 (07:44→22:33)
[2018-04-25] MEDS: guaiFENesin 600 mg ER Tab PO SCH ×2 (09:16→18:16)
[2018-04-25] MEDS: Silver Sulfadiazine 1% Cream (20 gm) TOP SCH ×2 (09:16→18:39)
[2018-04-25] MEDS: Enoxaparin 30 mg Syringe SC SCH (09:17)
[2018-04-25 09:22] LABS: BANDS 6 % (0-2); BASOPHIL 2 % (0-2); EOSINOPHIL 1 % (0-4); LYMPHOCYTE 5 % (20-40); MONOCYTE 10 % (0-10); NEUTROPHIL 76 % (50-75); TOTAL CELLS COUNTED 100
[2018-04-25 09:23] LABS: PLATELET ESTIMATE DECREASED (NORMAL)
[2018-04-25 09:24] LABS: ANISOCYTOSIS SLIGHT
[2018-04-25 09:27] LABS: POLYCHROMIC SLIGHT
[2018-04-25 09:28] LABS: TOXIC GRANULATION PRESENT
[2018-04-25 09:33] LABS: LARGE PLATELETS PRESENT
[2018-04-25] MEDS: Lidocaine 2% Jelly (5 ml) TOP SCH ×2 (09:34→18:18)
[2018-04-25] MEDS: (Lantus) Insulin Glargine, Recombinant SC SCH ×2 (09:35→22:18)
[2018-04-25] MEDS: Lidocaine 5% Patch TD SCH (18:20)
--- NOTE | 2018-04-25 19:18 | CP.PCM.CON ---
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 Status post Port-A-Cath placement for chemotherapy. Patient complaining of productive cough and shortness of breath/wheezing. Denies fever chills, denies chest pain. PMHx: PAD, Anxiety, asthma/COPD, DM, HTN, HLD, gastritis, diverticulitis Meds: reviewed in chart NKDA PSHx: R BKA, R SFA stenting (01/2017), Left AKA (07/2015), Ex Lap LAR, bowel resection, repair of colovesicular fistula (11/2015), Fem-Fem bypass (2011), SHx: former smoker (1-1.5ppd x40yrs), social EtOH (former 1 pint of vodka per day), occasional marijuana use FHx: noncontributory Review of Systems - Review of Systems All systems: reviewed and no additional remarkable complaints except (Cough and shortness of breath) Past Patient History - Infectious Disease Hx of Infectious Diseases: None - Past Medical History & Family History Past Medical History?: Yes - Past Social History Smoking Status: Current Some Days Smoker - CARDIAC Hx Hypercholesterolemia: Yes Hx Hypertension: Yes - PULMONARY Hx Asthma: Yes Hx Chronic Obstructive Pulmonary Disease (COPD): Yes - NEUROLOGICAL Hx Neurological Disorder: No - HEENT Hx HEENT Problems: No - RENAL Hx Chronic Kidney Disease: No - ENDOCRINE/METABOLIC Hx Endocrine Disorders: Yes Hx Diabetes Mellitus Type 2: Yes - HEMATOLOGICAL/ONCOLOGICAL Hx Blood Disorders: Yes Hx Cancer: Yes (THROAT CANCER) Hx Chemotherapy: Yes (AND RADIATION) - INTEGUMENTARY Hx Dermatological Problems: Yes Other/Comment: PT HAS BROWN SPOTS ON ARMS AND BACK 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 - MUSCULOSKELETAL/RHEUMATOLOGICAL Hx Falls: No - GASTROINTESTINAL Hx Diverticulitis: Yes Hx Gastritis: Yes - GENITOURINARY/GYNECOLOGICAL Hx Genitourinary Disorders: Yes Hx Urinary Tract Infection: Yes - PSYCHIATRIC Hx Substance Use: Yes (SMOKE [employer]ED[employer]) - SURGICAL HISTORY Hx Surgeries: Yes Hx Amputation: Yes (LEFT AKA, RIGHT BTK) Hx Angiogram: Yes Hx Cardiac Catheterization: Yes Hx Femoral-Popliteal Bypass Graft: Yes (X3) Hx Vascular Surgery: Yes Other/Comment: Vascular bypass surgery femoral bilateral X6 - ANESTHESIA Hx Anesthesia: Yes Hx Anesthesia Reactions: No Hx Malignant Hyperthermia: No Meds Allergies/Adverse Reactions: Allergies Allergy/AdvReac Type Severity Reaction Status Date / Time No Known Allergies Allergy Verified 04/22/18 17:22 - Medications Medications: Current Medications Acetaminophen (Tylenol 325mg Tab) 650 mg PO Q6 PRN PRN Reason: Pain, Mild (1-3) Last Admin: 04/23/18 20:37 Dose: 650 mg Albuterol/Ipratropium (Duoneb 3 Mg/0.5 Mg (3 Ml) Ud) 3 ml INH RQ6 [facility] Last Admin: 04/25/18 08:51 Dose: 3 ml Carvedilol (Coreg) 25 mg PO BID [facility] Last Admin: 04/25/18 18:15 Dose: 25 mg Clopidogrel Bisulfate (Plavix) 75 mg PO DAILY [facility] Last Admin: 04/25/18 09:16 Dose: 75 mg Enoxaparin Sodium (Lovenox) 30 mg SC DAILY [facility] Last Admin: 04/25/18 09:17 Dose: 30 mg Gabapentin (Neurontin) 300 mg PO TID [facility] Last Admin: 04/25/18 18:16 Dose: 300 mg Guaifenesin (Mucinex La) 600 mg PO BID [facility] Last Admin: 04/25/18 18:16 Dose: 600 mg Ceftriaxone Sodium 1 gm/ (Sodium Chloride) 100 mls @ 100 mls/hr IVPB DAILY [facility]; Protocol Last Admin: 04/25/18 09:17 Dose: 100 mls/hr Lactated Ringer's (Lactated Ringer's) 1,000 mls @ 100 mls/hr IV .Q10H [facility] Last Admin: 04/25/18 13:34 Dose: Not Given Insulin Glargine (Lantus) 35 unit SC Q12 [facility] Last Admin: 04/25/18 09:35 Dose: Not Given Insulin Human Regular (Novolin R) 0 unit SC ACHS [facility]; Protocol Last Admin: 04/25/18 18:17 Dose: Not Given Lidocaine (Lidoderm) 1 ea TD Q24H [facility] Last Admin: 04/24/18 19:29 Dose: 1 ea Lidocaine HCl (Lidocaine Hydrochloride Jelly 2% 5 Ml) 1 ml TOP BID [facility] Last Admin: 04/25/18 18:18 Dose: 1 ml Losartan Potassium (Cozaar) 25 mg PO DAILY [facility] Last Admin: 04/25/18 09:16 Dose: 25 mg Oxycodone/Acetaminophen (Percocet 5/325 Mg Tab) 2 tab PO Q4H PRN PRN Reason: Pain, severe (8-10) Stop: 04/25/18 21:06 Last Admin: 04/25/18 18:37 Dose: 2 tab Pantoprazole Sodium (Protonix Inj) 40 mg IVP DAILY [facility] Last Admin: 04/25/18 09:34 Dose: 40 mg Rosuvastatin Calcium (Crestor) 5 mg PO HS [facility] Last Admin: 04/24/18 21:56 Dose: 5 mg Sennosides (Senokot Tab) 8.6 mg PO DAILY [facility] Last Admin: 04/25/18 09:16 Dose: 8.6 mg Silver Sulfadiazine (Silvadene 1% 20 Gm) 0 ea TOP BID [facility] Last Admin: 04/25/18 18:39 Dose: 1 applic Thiamine HCl (Vitamin B1 Tab) 100 mg PO DAILY [facility] Last Admin: 04/25/18 09:17 Dose: 100 mg Zolpidem Tartrate (Ambien) 5 mg PO HS PRN PRN Reason: Insomnia Last Admin: 04/23/18 21:09 Dose: 5 mg Physical Exam - Head Exam Head Exam: ATRAUMATIC, NORMOCEPHALIC - ENT Exam ENT Exam: Mucous Membranes Moist - Neck Exam Neck exam: Positive for: Normal Inspection - Respiratory Exam Respiratory Exam: Rales, Rhonchi, Wheezes - Cardiovascular Exam Cardiovascular Exam: REGULAR RHYTHM - GI/Abdominal Exam GI & Abdominal Exam: Normal Bowel Sounds, Soft - Extremities Exam Extremities exam: Positive for: normal inspection - Neurological Exam Neurological exam: Alert, Oriented x3 Results - Vital Signs Recent Vital Signs: Last Vital Signs Temp 98.3 F 04/25/18 15:00 Pulse 92 H 04/25/18 15:00 Resp 20 04/25/18 15:00 BP 143/71 04/25/18 18:15 Pulse Ox 98 04/25/18 15:00 - Labs Result Diagrams: 04/25/18 06:39 04/25/18 06:39 Labs: Laboratory Results - last 24 hr 04/24/18 04/24/1819 18:38 18:38 20:48 WBC 2.6 L RBC 2.19 L Hgb 7.1 L Hct 21.0 L MCV 95.8 H MCH 32.5 H MCHC 34.0 RDW 15.5 H Plt Count 70 L MPV 8.6 Neut % (Auto) Lymph % (Auto) [place] % (Auto) Eos % (Auto) Baso % (Auto) Neut # (Auto) Lymph # (Auto) [place] # (Auto) Eos # (Auto) Baso # (Auto) Neutrophils % (Manual) Band Neutrophils % Lymphocytes % (Manual) Monocytes % (Manual) Eosinophils % (Manual) Basophils % (Manual) Toxic Granulation Platelet Estimate Large Platelets Polychromasia Anisocytosis (manual) Macrocytosis (manual) Sodium 137 Potassium 3.4 L Chloride 103 Carbon Dioxide 26 Anion Gap 12 BUN 38 H Creatinine 1.9 H Est GFR ( Amer) 45 Est GFR (Non-Af Amer) 37 POC Glucose (mg/dL) 135 H Random Glucose 126 H Calcium 7.2 L 04/25/18 04/25/18 04/25/18 06:39 06:39 07:21 WBC 3.1 L RBC 2.66 L Hgb 8.5 L Hct 25.2 L MCV 94.7 H MCH 32.0 H MCHC 33.8 RDW 15.6 H Plt Count 70 L MPV 8.3 Neut % (Auto) 84.4 H Lymph % (Auto) 5.9 L [place] % (Auto) 8.6 Eos % (Auto) 0.6 Baso % (Auto) 0.5 Neut # (Auto) 2.6 Lymph # (Auto) 0.2 L [place] # (Auto) 0.3 Eos # (Auto) 0.0 Baso # (Auto) 0.0 Neutrophils % (Manual) 76 H Band Neutrophils % 6 H Lymphocytes % (Manual) 5 L Monocytes % (Manual) 10 Eosinophils % (Manual) 1 Basophils % (Manual) 2 Toxic Granulation Present Platelet Estimate Decreased L Large Platelets Present Polychromasia Slight Anisocytosis (manual) Slight Macrocytosis (manual) Slight Sodium 138 Potassium 3.7 Chloride 102 Carbon Dioxide 28 Anion Gap 12 BUN 32 H Creatinine 1.7 H Est GFR ( Amer) 51 Est GFR (Non-Af Amer) 42 POC Glucose (mg/dL) 142 H Random Glucose 136 H Calcium 7.3 L 04/25/18 04/25/18 11:07 15:58 WBC RBC Hgb Hct MCV MCH MCHC RDW Plt Count MPV Neut % (Auto) Lymph % (Auto) [place] % (Auto) Eos % (Auto) Baso % (Auto) Neut # (Auto) Lymph # (Auto) [place] # (Auto) Eos # (Auto) Baso # (Auto) Neutrophils % (Manual) Band Neutrophils % Lymphocytes % (Manual) Monocytes % (Manual) Eosinophils % (Manual) Basophils % (Manual) Toxic Granulation Platelet Estimate Large Platelets Polychromasia Anisocytosis (manual) Macrocytosis (manual) Sodium Potassium Chloride Carbon Dioxide Anion Gap BUN Creatinine Est GFR ( Amer) Est GFR (Non-Af Amer) POC Glucose (mg/dL) 119 H 109 Random Glucose Calcium Assessment & Plan (1) COPD (chronic obstructive pulmonary disease) Status: Chronic Comment: Continue nebulizer treatment. Add steroids and antitussive. Transfuse as needed (2) Anemia Status: Acute
--- NOTE | 2018-04-25 21:26 | CP.PCM.PN ---
Subjective - Date & Time of Evaluation Date of Evaluation: 04/25/18 Time of Evaluation: 07:00 - Subjective Subjective: dictated Objective - Vital Signs/Intake and Output Vital Signs (last 24 hours): Temp Pulse Resp BP Pulse Ox 98.3 F 92 H 20 143/71 98 04/25/18 15:00 04/25/18 15:00 04/25/18 15:00 04/25/18 18:15 04/25/18 15:00 Intake and Output: 04/25/18 04/26/18 18:59 06:59 Intake Total 2150 Balance 2150 - Medications Medications: Current Medications Acetaminophen (Tylenol 325mg Tab) 650 mg PO Q6 PRN PRN Reason: Pain, Mild (1-3) Last Admin: 04/23/18 20:37 Dose: 650 mg Albuterol/Ipratropium (Duoneb 3 Mg/0.5 Mg (3 Ml) Ud) 3 ml INH RQ6 [facility] Last Admin: 04/25/18 19:34 Dose: 3 ml Carvedilol (Coreg) 25 mg PO BID [facility] Last Admin: 04/25/18 18:15 Dose: 25 mg Clopidogrel Bisulfate (Plavix) 75 mg PO DAILY [facility] Last Admin: 04/25/18 09:16 Dose: 75 mg Enoxaparin Sodium (Lovenox) 30 mg SC DAILY [facility] Last Admin: 04/25/18 09:17 Dose: 30 mg Gabapentin (Neurontin) 300 mg PO TID [facility] Last Admin: 04/25/18 18:16 Dose: 300 mg Guaifenesin (Mucinex La) 600 mg PO BID [facility] Last Admin: 04/25/18 18:16 Dose: 600 mg Lactated Ringer's (Lactated Ringer's) 1,000 mls @ 100 mls/hr IV .Q10H [facility] Last Admin: 04/25/18 13:34 Dose: Not Given Azithromycin 500 mg/ Sodium (Chloride) 250 mls @ 250 mls/hr IVPB DAILY [facility]; Protocol Insulin Glargine (Lantus) 35 unit SC Q12 [facility] Last Admin: 04/25/18 09:35 Dose: Not Given Insulin Human Regular (Novolin R) 0 unit SC ACHS [facility]; Protocol Last Admin: 04/25/18 18:17 Dose: Not Given Lidocaine (Lidoderm) 1 ea TD Q24H [facility] Last Admin: 04/24/18 19:29 Dose: 1 ea Lidocaine HCl (Lidocaine Hydrochloride Jelly 2% 5 Ml) 1 ml TOP BID [facility] Last Admin: 04/25/18 18:18 Dose: 1 ml Losartan Potassium (Cozaar) 25 mg PO DAILY [facility] Last Admin: 04/25/18 09:16 Dose: 25 mg Methylprednisolone (Solu-Medrol) 40 mg IVP Q8 [facility] Pantoprazole Sodium (Protonix Inj) 40 mg IVP DAILY [facility] Last Admin: 04/25/18 09:34 Dose: 40 mg Rosuvastatin Calcium (Crestor) 5 mg PO HS [facility] Last Admin: 04/24/18 21:56 Dose: 5 mg Sennosides (Senokot Tab) 8.6 mg PO DAILY [facility] Last Admin: 04/25/18 09:16 Dose: 8.6 mg Silver Sulfadiazine (Silvadene 1% 20 Gm) 0 ea TOP BID [facility] Last Admin: 04/25/18 18:39 Dose: 1 applic Thiamine HCl (Vitamin B1 Tab) 100 mg PO DAILY [facility] Last Admin: 04/25/18 09:17 Dose: 100 mg Zolpidem Tartrate (Ambien) 5 mg PO HS PRN PRN Reason: Insomnia Last Admin: 04/23/18 21:09 Dose: 5 mg - Labs Labs: 04/25/18 06:39 04/25/18 06:39 PT 14.7 SECONDS (9.7-12.2) H 04/23/18 06:26 INR 1.3 04/23/18 06:26 APTT 28 SECONDS (21-34) 04/23/18 06:26
[2018-04-25] MEDS: MethylPREDNISolone 40 mg Vial IVP SCH (22:44)
[2018-04-26] MEDS: Albuterol-Ipratrop 3 mg / 0.5 (3 ml) UD INH SCH ×3 (02:00→19:38)
--- NOTE | 2018-04-26 02:14 | PN ---
DATE: 04/25/2018 SUBJECTIVE: The patient's fever has subsided. He feels better. Less cough, less wheezing. His blood sugars are better, blood pressure is better . PHYSICAL EXAMINATION: VITAL SIGNS: Blood pressure 143/71, pulse 92, respiratory rate 20, temperature 98.3. LUNGS: Scattered rhonchi. CARDIOVASCULAR SYSTEM: S1 and S2, regular. ABDOMEN: Soft. ASSESSMENT: 1. Anemia due to chemotherapy, throat cancer and radiation therapy; less likely due to gastrointestinal bleed. 2. Hypertension. 3. Chronic obstructive pulmonary disease. 4. Type 2 diabetes. PLAN: Blood transfusion. Antibiotics. Olmos-culture. Pulmonary evaluation. Monitor the patient. Jagdeep Lee MD
[2018-04-26] MEDS: Lactated Ringer's 1,000 ML IV SCH ×2 (05:14→08:58)
[2018-04-26] MEDS: MethylPREDNISolone 40 mg Vial IVP SCH ×3 (05:18→21:28)
[2018-04-26] MEDS: (Novolin R) Insulin Human Regular 100 units/ml vial SC SCH ×4 (07:48→21:28)
[2018-04-26] MEDS: Lidocaine 2% Jelly (5 ml) TOP SCH ×2 (09:16→18:36)
[2018-04-26] MEDS: guaiFENesin 600 mg ER Tab PO SCH ×2 (09:16→18:34)
[2018-04-26] MEDS: Silver Sulfadiazine 1% Cream (20 gm) TOP SCH ×2 (09:16→18:36)
[2018-04-26] MEDS: Azithromycin 500 MG in Sodium Chloride 0.9% 250 ML IVPB SCH (09:19)
[2018-04-26] MEDS: Enoxaparin 30 mg Syringe SC SCH (09:25)
[2018-04-26] MEDS: (Lantus) Insulin Glargine, Recombinant SC SCH ×2 (09:25→21:40)
[2018-04-26] MEDS ORDERED: Oxycodone/Acetaminophen 5/325 mg Tab PO PRN (16:23)
[2018-04-26] MEDS: Lidocaine 5% Patch TD SCH (19:00)
[2018-04-26] MEDS: Oxycodone/Acetaminophen 5/325 mg Tab PO PRN (19:16)
--- NOTE | 2018-04-26 23:15 | CP.PCM.PN ---
Subjective - Date & Time of Evaluation Date of Evaluation: 04/26/18 Time of Evaluation: 07:00 - Subjective Subjective: dictated Objective - Vital Signs/Intake and Output Vital Signs (last 24 hours): Temp Pulse Resp BP Pulse Ox 98.1 F 91 H 20 137/86 99 04/26/18 15:00 04/26/18 15:00 04/26/18 15:00 04/26/18 18:33 04/26/18 15:00 Intake and Output: 04/26/18 04/27/18 18:59 06:59 Intake Total 2150 350 Output Total 1060 475 Balance 1090 -125 - Medications Medications: Current Medications Acetaminophen (Tylenol 325mg Tab) 650 mg PO Q6 PRN PRN Reason: Pain, Mild (1-3) Last Admin: 04/26/18 05:21 Dose: 650 mg Albuterol/Ipratropium (Duoneb 3 Mg/0.5 Mg (3 Ml) Ud) 3 ml INH RQ6 [facility] Last Admin: 04/26/18 19:38 Dose: 3 ml Carvedilol (Coreg) 25 mg PO BID [facility] Last Admin: 04/26/18 18:33 Dose: 25 mg Clopidogrel Bisulfate (Plavix) 75 mg PO DAILY [facility] Last Admin: 04/26/18 09:16 Dose: 75 mg Enoxaparin Sodium (Lovenox) 30 mg SC DAILY [facility] Last Admin: 04/26/18 09:25 Dose: 30 mg Gabapentin (Neurontin) 300 mg PO TID [facility] Last Admin: 04/26/18 18:34 Dose: 300 mg Guaifenesin (Mucinex La) 600 mg PO BID [facility] Last Admin: 04/26/18 18:34 Dose: 600 mg Azithromycin 500 mg/ Sodium (Chloride) 250 mls @ 250 mls/hr IVPB DAILY [facility]; Protocol Last Admin: 04/26/18 09:19 Dose: 250 mls/hr Insulin Glargine (Lantus) 35 unit SC Q12 [facility] Last Admin: 04/26/18 21:40 Dose: 35 units Insulin Human Regular (Novolin R) 0 unit SC ACHS [facility]; Protocol Last Admin: 04/26/18 21:28 Dose: Not Given Lidocaine (Lidoderm) 1 ea TD Q24H [facility] Last Admin: 04/26/18 19:00 Dose: 1 ea Lidocaine HCl (Lidocaine Hydrochloride Jelly 2% 5 Ml) 1 ml TOP BID [facility] Last Admin: 04/26/18 18:36 Dose: 1 ml Losartan Potassium (Cozaar) 25 mg PO DAILY [facility] Last Admin: 04/26/18 09:16 Dose: 25 mg Methylprednisolone (Solu-Medrol) 40 mg IVP Q8 [facility] Last Admin: 04/26/18 21:28 Dose: 40 mg Oxycodone/Acetaminophen (Percocet 5/325 Mg Tab) 2 tab PO Q4H PRN PRN Reason: Pain, severe (8-10) Stop: 04/29/18 18:57 Last Admin: 04/26/18 19:16 Dose: 2 tab Pantoprazole Sodium (Protonix Inj) 40 mg IVP DAILY [facility] Last Admin: 04/26/18 09:17 Dose: 40 mg Rosuvastatin Calcium (Crestor) 5 mg PO HS [facility] Last Admin: 04/26/18 21:27 Dose: 5 mg Sennosides (Senokot Tab) 8.6 mg PO DAILY [facility] Last Admin: 04/26/18 09:19 Dose: 8.6 mg Silver Sulfadiazine (Silvadene 1% 20 Gm) 0 ea TOP BID [facility] Last Admin: 04/26/18 18:36 Dose: 1 applic Thiamine HCl (Vitamin B1 Tab) 100 mg PO DAILY [facility] Last Admin: 04/26/18 09:19 Dose: 100 mg Zolpidem Tartrate (Ambien) 5 mg PO HS PRN PRN Reason: Insomnia Last Admin: 04/26/18 22:01 Dose: 5 mg - Labs Labs: 04/25/18 06:39 04/25/18 06:39 PT 14.7 SECONDS (9.7-12.2) H 04/23/18 06:26 INR 1.3 04/23/18 06:26 APTT 28 SECONDS (21-34) 04/23/18 06:26
[2018-04-27] MEDS: Albuterol-Ipratrop 3 mg / 0.5 (3 ml) UD INH SCH ×3 (01:56→13:10)
--- NOTE | 2018-04-27 03:53 | PN ---
DATE: 04/26/2018 SUBJECTIVE: The patient is afebrile. No shortness of breath. No chest pain. He . PHYSICAL EXAMINATION: VITAL SIGNS: Blood pressure 137/86, pulse 91, respiratory rate 20, temperature 98.1. LUNGS: Bilateral scattered rhonchi. CARDIOVASCULAR SYSTEM: S1 and S2, regular. ABDOMEN: Soft, nontender. Bowel sounds are positive. ASSESSMENT: 1. Anemia due to chemotherapy, radiation therapy and cancer of throat. 2. Chronic obstructive pulmonary disease. 3. Type 2 diabetes. 4. Hypertension. PLAN: Repeat blood work in a.m. Possible discharge in a.m. Jagdeep Lee MD
[2018-04-27] MEDS: MethylPREDNISolone 40 mg Vial IVP SCH ×2 (05:02→13:54)
[2018-04-27] MEDS: Oxycodone/Acetaminophen 5/325 mg Tab PO PRN ×3 (05:02→15:01)
[2018-04-27 06:26] LABS: HEMOGLOBIN 8.9 g/dL (12.0-18.0); MEAN CELL VOLUME 92.8 fL (80.0-94.0); MEAN CORPUSCULAR HEMOGLOBIN 32.2 pg (27.0-31.0); MEAN CORPUSCULAR HGB CONC 34.7 g/dL (33.0-37.0); MEAN PLATELET VOLUME 9.4 fL (7.2-11.7); RBC 2.76 Mil/uL (4.40-5.90); RED CELL DISTRIBUTION WIDTH 15.4 % (11.5-14.5); WHITE BLOOD COUNT 3.5 K/uL (4.8-10.8)
[2018-04-27 06:47] LABS: BLOOD UREA NITROGEN 22 mg/dL (9-20); CALCIUM 6.8 mg/dl (8.6-10.4); GFR NON-AFRICAN AMERICAN > 60
[2018-04-27] MEDS: (Novolin R) Insulin Human Regular 100 units/ml vial SC SCH ×2 (08:23→12:30)
[2018-04-27] MEDS: Enoxaparin 30 mg Syringe SC SCH (10:18)
[2018-04-27] MEDS: Lidocaine 2% Jelly (5 ml) TOP SCH (10:19)
[2018-04-27] MEDS: guaiFENesin 600 mg ER Tab PO SCH (10:19)
[2018-04-27] MEDS: (Lantus) Insulin Glargine, Recombinant SC SCH (10:20)
[2018-04-27] MEDS: Silver Sulfadiazine 1% Cream (20 gm) TOP SCH (10:21)
[2018-04-27] MEDS: Azithromycin 500 MG in Sodium Chloride 0.9% 250 ML IVPB SCH (10:21)
[2018-04-27] MEDS ORDERED: Potassium Chloride 20 mEq/15 ml LIQ UD PO ONE (12:30)
[2018-04-27 16:10] VITALS: BP 120/76; PULSE 76; TEMP 99.1; O2SAT 97
--- NOTE | 2018-04-27 17:54 | CP.PCM.PN ---
Subjective - Date & Time of Evaluation Date of Evaluation: 04/27/18 Time of Evaluation: 11:00 - Subjective Subjective: Patient seen and examined at bedside. States breathing much improved. Denies fevers, chills, chest pain. Stable for discharge today. Afebrile. Physical Exam General: Awake, alert, oriented; not in any distress Cardio: Regular rate & rhythm; +S1 +S2 Pulm: Wheezing Abd: Soft, non-distended Assessment & Plan COPD - Continue nebulizer treatment - Continue steroids - Continue antitussive - Patient is stable for discharge today Anemia Objective - Vital Signs/Intake and Output Vital Signs (last 24 hours): Temp Pulse Resp BP Pulse Ox 99.1 F 76 20 120/76 97 04/27/18 16:00 04/27/18 16:00 04/27/18 16:00 04/27/18 16:00 04/27/18 16:00 Intake and Output: 04/27/18 04/27/18 06:59 18:59 Intake Total 650 730 Output Total 875 Balance -225 730 - Medications Medications: Current Medications Acetaminophen (Tylenol 325mg Tab) 650 mg PO Q6 PRN PRN Reason: Pain, Mild (1-3) Last Admin: 04/26/18 05:21 Dose: 650 mg Albuterol/Ipratropium (Duoneb 3 Mg/0.5 Mg (3 Ml) Ud) 3 ml INH RQ6 [facility] Last Admin: 04/27/18 13:10 Dose: 3 ml Carvedilol (Coreg) 25 mg PO BID [facility] Last Admin: 04/27/18 10:17 Dose: 25 mg Clopidogrel Bisulfate (Plavix) 75 mg PO DAILY [facility] Last Admin: 04/27/18 10:19 Dose: 75 mg Enoxaparin Sodium (Lovenox) 30 mg SC DAILY [facility] Last Admin: 04/27/18 10:18 Dose: 30 mg Gabapentin (Neurontin) 300 mg PO TID [facility] Last Admin: 04/27/18 13:54 Dose: 300 mg Guaifenesin (Mucinex La) 600 mg PO BID [facility] Last Admin: 04/27/18 10:19 Dose: 600 mg Azithromycin 500 mg/ Sodium (Chloride) 250 mls @ 250 mls/hr IVPB DAILY [facility]; Protocol Last Admin: 04/27/18 10:21 Dose: 250 mls/hr Insulin Glargine (Lantus) 35 unit SC Q12 [facility] Last Admin: 04/27/18 10:20 Dose: 35 units Insulin Human Regular (Novolin R) 0 unit SC ACHS [facility]; Protocol Last Admin: 04/27/18 12:30 Dose: 2 units Lidocaine (Lidoderm) 1 ea TD Q24H [facility] Last Admin: 04/26/18 19:00 Dose: 1 ea Lidocaine HCl (Lidocaine Hydrochloride Jelly 2% 5 Ml) 1 ml TOP BID [facility] Last Admin: 04/27/18 10:19 Dose: 1 ml Losartan Potassium (Cozaar) 25 mg PO DAILY [facility] Last Admin: 04/27/18 10:18 Dose: 25 mg Methylprednisolone (Solu-Medrol) 40 mg IVP Q8 [facility] Last Admin: 04/27/18 13:54 Dose: 40 mg Oxycodone/Acetaminophen (Percocet 5/325 Mg Tab) 2 tab PO Q4H PRN PRN Reason: Pain, severe (8-10) Stop: 04/29/18 18:57 Last Admin: 04/27/18 15:01 Dose: 2 tab Pantoprazole Sodium (Protonix Inj) 40 mg IVP DAILY [facility] Last Admin: 04/27/18 10:20 Dose: 40 mg Rosuvastatin Calcium (Crestor) 5 mg PO HS [facility] Last Admin: 04/26/18 21:27 Dose: 5 mg Sennosides (Senokot Tab) 8.6 mg PO DAILY [facility] Last Admin: 04/27/18 10:19 Dose: Not Given Silver Sulfadiazine (Silvadene 1% 20 Gm) 0 ea TOP BID [facility] Last Admin: 04/27/18 10:21 Dose: 1 applic Thiamine HCl (Vitamin B1 Tab) 100 mg PO DAILY [facility] Last Admin: 04/27/18 10:20 Dose: 100 mg Zolpidem Tartrate (Ambien) 5 mg PO HS PRN PRN Reason: Insomnia Last Admin: 04/26/18 22:01 Dose: 5 mg - Labs Labs: 04/27/18 06:15 04/27/18 06:15 PT 14.7 SECONDS (9.7-12.2) H 04/23/18 06:26 INR 1.3 04/23/18 06:26 APTT 28 SECONDS (21-34) 04/23/18 06:26 Assessment and Plan (1) COPD (chronic obstructive pulmonary disease) Status: Chronic (2) Anemia Status: Acute
--- NOTE | 2018-04-27 21:08 | CP.PCM.DIS ---
Provider - Provider Date of Admission: 04/22/18 18:57 Attending physician: Jagdeep Lee MD Consults: 04/22/18 18:50 General Surgery Consult PRN Comment: Consulting Provider: Ridge Fernández Jr. Consulting Physician: Ridge Fernández Jr. Reason for Consult: port a cath Hematology Oncology Consult Stat Comment: Consulting Provider: Amber Osborne Consulting Physician: Amber Osborne Reason for Consult: anemia,ca 04/23/18 08:00 Nursing Referral for Palliative Care Routine Comment: Physician Instructions: Reason For Exam: THROAT CA 04/24/18 21:58 Pulmonology Consult Routine Comment: Consulting Provider: Quan Blair Consulting Physician: Quan Blair Reason for Consult: pna Time Spent in preparation of Discharge (in minutes): 30 Hospital Course - Lab Results Lab Results: Most Recent Lab Values WBC 3.5 K/uL (4.8-10.8) L 04/27/18 06:15 RBC 2.76 Mil/uL (4.40-5.90) L 04/27/18 06:15 Hgb 8.9 g/dL (12.0-18.0) L 04/27/18 06:15 Hct 25.6 % (35.0-51.0) L 04/27/18 06:15 MCV 92.8 fL (80.0-94.0) 04/27/18 06:15 MCH 32.2 pg (27.0-31.0) H 04/27/18 06:15 MCHC 34.7 g/dL (33.0-37.0) 04/27/18 06:15 RDW 15.4 % (11.5-14.5) H 04/27/18 06:15 Plt Count 74 K/uL (130-400) L 04/27/18 06:15 MPV 9.4 fL (7.2-11.7) 04/27/18 06:15 Neut % (Auto) 84.4 % (50.0-75.0) H 04/25/18 06:39 Lymph % (Auto) 5.9 % (20.0-40.0) L 04/25/18 06:39 [place] % (Auto) 8.6 % (0.0-10.0) 04/25/18 06:39 Eos % (Auto) 0.6 % (0.0-4.0) 04/25/18 06:39 Baso % (Auto) 0.5 % (0.0-2.0) 04/25/18 06:39 Neut # (Auto) 2.6 K/uL (1.8-7.0) 04/25/18 06:39 Lymph # (Auto) 0.2 K/uL (1.0-4.3) L 04/25/18 06:39 [place] # (Auto) 0.3 K/uL (0.0-0.8) 04/25/18 06:39 Eos # (Auto) 0.0 K/uL (0.0-0.7) 04/25/18 06:39 Baso # (Auto) 0.0 K/uL (0.0-0.2) 04/25/18 06:39 Neutrophils % (Manual) 76 % (50-75) H 04/25/18 06:39 Band Neutrophils % 6 % (0-2) H 04/25/18 06:39 Lymphocytes % (Manual) 5 % (20-40) L 04/25/18 06:39 Monocytes % (Manual) 10 % (0-10) 04/25/18 06:39 Eosinophils % (Manual) 1 % (0-4) 04/25/18 06:39 Basophils % (Manual) 2 % (0-2) 04/25/18 06:39 Toxic Granulation Present 04/25/18 06:39 Platelet Estimate Decreased (NORMAL) L 04/25/18 06:39 Large Platelets Present 04/25/18 06:39 Polychromasia Slight 04/25/18 06:39 Hypochromasia (manual) Slight 04/24/18 09:35 Anisocytosis (manual) Slight 04/25/18 06:39 Macrocytosis (manual) Slight 04/25/18 06:39 PT 14.7 SECONDS (9.7-12.2) H 04/23/18 06:26 INR 1.3 04/23/18 06:26 APTT 28 SECONDS (21-34) 04/23/18 06:26 Sodium 135 mmol/L (132-148) 04/27/18 06:15 Potassium 3.4 mmol/L (3.6-5.2) L 04/27/18 06:15 Chloride 95 mmol/L (98-107) L 04/27/18 06:15 Carbon Dioxide 32 mmol/L (22-30) H 04/27/18 06:15 Anion Gap 12 (10-20) 04/27/18 06:15 BUN 22 mg/dL (9-20) H 04/27/18 06:15 Creatinine 1.2 mg/dL (0.8-1.5) 04/27/18 06:15 Est GFR ( Amer) > 60 04/27/18 06:15 Est GFR (Non-Af Amer) > 60 04/27/18 06:15 POC Glucose (mg/dL) 152 mg/dL (65-110) H 04/27/18 16:22 Random Glucose 202 mg/dL (75-110) H D 04/27/18 06:15 Calcium 6.8 mg/dl (8.6-10.4) L 04/27/18 06:15 Phosphorus 3.7 mg/dL (2.5-4.5) 04/23/18 06:26 Magnesium 1.5 mg/dL (1.6-2.3) L 04/23/18 06:26 Total Bilirubin 0.6 mg/dL (0.2-1.3) 04/22/18 18:34 AST 13 U/L (17-59) L D 04/22/18 18:34 ALT 11 U/L (21-72) L D 04/22/18 18:34 Alkaline Phosphatase 66 U/L (38-126) 04/22/18 18:34 Total Protein 6.3 g/dL (6.3-8.3) 04/22/18 18:34 Albumin 3.5 g/dL (3.5-5.0) 04/22/18 18:34 Globulin 2.9 gm/dL (2.2-3.9) 04/22/18 18:34 Albumin/Globulin Ratio 1.2 (1.0-2.1) 04/22/18 18:34 Blood Type A POSITIVE 04/22/18 18:34 Antibody Screen Negative 04/22/18 18:34 Discharge Exam - Head Exam Head Exam: ATRAUMATIC, NORMOCEPHALIC Discharge Plan - Discharge Medications Prescriptions: Lidocaine Hydrochloride [Lidocaine Hydrochloride Jelly 2% 5 ml] 1 ml TOP BID #1 gel Silver Sulfadiazine 1% 20 gm [Silvadene 1% 20 gm] 0 ea TOP BID #1 tube - Follow Up Plan Condition: STABLE Disposition: HOME/ ROUTINE Instructions: Lidocaine (Topical), Anemia of Chronic Disease (DC), Silver Sulfadiazine Additional Instructions: FOLLOW UP WITH DR LEE FOLLOW UP WITH DR OSBORNE CONTINUE HOME MEDICATION NEW PRESCRIPTION GIVEN ACTIVITY TOLERATED CALL DR LEE OR GO TO THE EMERGENCY ROOM IF SYMPTOM RETURN OR WORSENING Referrals: Jagdeep Lee MD [Staff Provider] - Amber Osborne MD [Staff Provider] -
--- NOTE | 2018-04-28 05:38 | DS ---
DISCHARGE DIAGNOSES: 1. 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 2. Throat cancer. 3. Type 2 diabetes. 4. Hypertension. 5. Tracheobronchitis. HOSPITAL COURSE: This is a 53-year-old male. He has history of smoking. He is alcoholic. He is mostly homebound and he is dependent on his family. He has bilateral lower extremity amputation. He is in his usual status of health, the patient is wheelchair-bound, and he is fully dependent on his family member. He came in because of cough, congestion, fever, and also he was found to have low hemoglobin with pale eyes. The patient was admitted to the floor, underwent blood transfusion. Post transfusion, H and H is stable. The patient, in the meantime was started on Rocephin and his antibiotics were continued. The patient improved. He felt better. He is afebrile and his hemoglobin is 8.9. He is for discharge. Condition upon discharge is stable. Jagdeep Lee MD
== END 2018-04-27 17:20 | disposition home or self-care (01) | DRG 812 ==
LOC: C.ER 16:36 → C.3T 18:57
PROVIDERS: ADMIT Internal Medicine; ATTEND Internal Medicine
PROC: 02HV33Z Insertion of Infusion Device into Superior Vena Cava, Percutaneous Approach (ICD-10-PCS; 2018-04-23)
PROC: 0JH63WZ Insertion of Totally Implantable Vascular Access Device into Chest Subcutaneous Tissue and Fascia, Percutaneous Approach (ICD-10-PCS; principal; 2018-04-23 12:30)
PROC: 30233N1 Transfusion of Nonautologous Red Blood Cells into Peripheral Vein, Percutaneous Approach (ICD-10-PCS; 2018-04-24)
DX: D64.81 Anemia due to antineoplastic chemotherapy (principal); C77.0 Secondary and unspecified malignant neoplasm of lymph nodes of head, face and neck; N17.9 Acute kidney failure, unspecified; C14.0 Malignant neoplasm of pharynx, unspecified; E78.5 Hyperlipidemia, unspecified; I10 Essential (primary) hypertension; E78.00 Pure hypercholesterolemia, unspecified; Z99.3 Dependence on wheelchair; E11.51 Type 2 diabetes mellitus with diabetic peripheral angiopathy without gangrene; J44.9 Chronic obstructive pulmonary disease, unspecified; Z89.612 Acquired absence of left leg above knee; T45.1X5A Adverse effect of antineoplastic and immunosuppressive drugs, initial encounter; Z79.4 Long term (current) use of insulin; F17.210 Nicotine dependence, cigarettes, uncomplicated; F12.90 Cannabis use, unspecified, uncomplicated; J40 Bronchitis, not specified as acute or chronic

== ENCOUNTER 2018-05-08 11:01 | Inpatient (IN) | payer MEDICARE, MEDICAID ==
[2018-05-08 11:21] VITALS: BMI 24.9
[2018-05-08 11:58] LABS: EOS # 0.1 K/uL (0.0-0.7); EOS % 1.6 % (0.0-4.0); LYMPH # 0.4 K/uL (1.0-4.3); MONO # 0.3 K/uL (0.0-0.8); WHITE BLOOD COUNT 4.5 K/uL (4.8-10.8)
[2018-05-08 12:04] LABS: BASO % 0.6 % (0.0-2.0); LYMPH % 9.8 % (20.0-40.0); MEAN CORPUSCULAR HGB CONC 34.4 g/dL (33.0-37.0); MEAN PLATELET VOLUME 9.1 fL (7.2-11.7); MONO % 7.4 % (0.0-10.0); NEUT # 3.6 K/uL (1.8-7.0); NEUT % 80.6 % (50.0-75.0); NRBC % 0.1 % (0.0-2.0); RBC 2.08 Mil/uL (4.40-5.90); RED CELL DISTRIBUTION WIDTH 16.6 % (11.5-14.5)
[2018-05-08 12:06] LABS: HEMOGLOBIN 6.9 g/dL (12.0-18.0); MEAN CELL VOLUME 96.1 fL (80.0-94.0); PLATELET COUNT 115 K/uL (130-400)
[2018-05-08 12:24] LABS: B-TYPE NATRIURETIC PEPTIDE 5710 pg/mL (0-900)
[2018-05-08 12:25] LABS: ALBUMIN 2.7 g/dL (3.5-5.0); ALT/SGPT 11 U/L (21-72); ANISOCYTOSIS SLIGHT; AST/SGOT 10 U/L (17-59); BANDS 6 % (0-2); BLOOD UREA NITROGEN 10 mg/dL (9-20); CALCIUM 6.5 mg/dl (8.6-10.4); GFR NON-AFRICAN AMERICAN > 60; LYMPHOCYTE 7 % (20-40); MONOCYTE 7 % (0-10); NEUTROPHIL 80 % (50-75); PLATELET ESTIMATE SLIGHTLY DECREASED (NORMAL); TOTAL CELLS COUNTED 100
[2018-05-08 12:27] LABS: STOMATOCYTES SLIGHT
--- NOTE | 2018-05-08 12:31 | RAD ---
Date of service: 05/08/2018 PROCEDURE: CHEST RADIOGRAPH, 1 VIEW HISTORY: SOB COMPARISON: 04/23/2018. FINDINGS: Right-sided MediPort terminates at the cavoatrial junction. LUNGS: The lungs are well inflated and clear. There is airspace disease in the left lower lobe. PLEURA: Question of small effusions. No pneumothorax. CARDIOVASCULAR: There is mild cardiomegaly. There are aortic atherosclerotic calcifications present. OSSEOUS STRUCTURES: Within normal limits for the patient's age. VISUALIZED UPPER ABDOMEN: Normal. OTHER FINDINGS: None. IMPRESSION: Airspace disease in the left lower lobe may represent atelectasis or pneumonia. Suspect small effusions, worse on the left. Right-sided MediPort terminates at the cavoatrial junction.
[2018-05-08] MEDS ORDERED: Magnesium Sulfate 1 gm in D5W 2 GM/200 ML BAG IVPB ONE (12:47)
[2018-05-08] MEDS ORDERED: Piperacillin/Tazobact 3.375 gm 100 ML IVPB STA (12:49)
[2018-05-08] MEDS: Magnesium Sulfate 1 gm in D5W 1 GM/100 ML BAG IVPB SCH ×6 (12:52→18:08)
--- NOTE | 2018-05-08 13:02 | C.PDOC ---
History Of Present Illness 53 year old male with a PMHx of diabetes, s/p Right BKA, Left AKA, and throat cancer, presents to the ED sent in by Dr. Osborne for anemia and hypocalcemia on recent labs. Patient reports his only complaint is cough, which has been ongoing for weeks. He states his last radiation treatment was 4 weeks ago and since then, he has been coughing up mucous. No new cough, fevers, chest pain, nausea, vomiting, or abdominal pain. Patient occasionally feels SOB but denies having any dizziness or syncope. Time Seen by Provider: 05/08/18 11:15 Chief Complaint (Nursing): Abnormal Labs History Per: Patient History/Exam Limitations: no limitations Onset/Duration Of Symptoms: Days Current Symptoms Are (Timing): Still Present Past Medical History Reviewed: Historical Data, Nursing Documentation, Vital Signs Vital Signs: Last Vital Signs Temp 99.5 F 05/08/18 11:09 Pulse 84 05/08/18 11:09 Resp 18 05/08/18 11:09 BP 130/66 05/08/18 11:09 Pulse Ox 100 05/08/18 11:09 - Medical History PMH: Anxiety, Asthma, COPD, Depression, Diverticulitis, Gastritis, HTN, Hypercholesterolemia, Malignancy (Throat CA, on chemo and radiation) Denies: Chronic Kidney Disease Other Surgeries: Right BKA, Left AKA - [facility] Procedures (01/20/18) ASSISTANCE WITH RESPIRATORY VENTILATION, 24-96 HRS, CPAP (02/10/18) DETACHMENT AT LEFT 2ND TOE, COMPLETE, OPEN APPROACH (05/08/15) DETACHMENT AT LEFT FEMORAL REGION, OPEN APPROACH (07/06/15) DETACHMENT AT LEFT FOOT, PARTIAL 1ST RAY, OPEN APPROACH (06/01/15) DETACHMENT AT LEFT FOOT, PARTIAL 2ND RAY, OPEN APPROACH (06/01/15) DETACHMENT AT LEFT FOOT, PARTIAL 3RD RAY, OPEN APPROACH (06/01/15) DETACHMENT AT LEFT FOOT, PARTIAL 4TH RAY, OPEN APPROACH (06/01/15) DETACHMENT AT LEFT FOOT, PARTIAL 5TH RAY, OPEN APPROACH (06/01/15) DETACHMENT AT RIGHT 5TH TOE, HIGH, OPEN APPROACH (01/15/17) DETACHMENT AT RIGHT LOWER LEG, HIGH, OPEN APPROACH (03/27/17) DILATE R FEM ART W INTRALUM DEV, DRUG BLLN, PERC (12/06/17) DILATION OF L EXT ILIAC ART WITH INTRALUM DEV, PERC APPROACH (06/01/15) DILATION OF L FEM ART WITH INTRALUM DEV, PERC APPROACH (05/08/15) DILATION OF L FOOT ART WITH INTRALUM DEV, PERC APPROACH (05/08/15) EXCISION OF L FOOT SUBCU/FASCIA, OPEN APPROACH (07/06/15) EXCISION OF SIGMOID COLON, OPEN APPROACH (11/16/15) EXTIRPATION OF MATTER FROM L EXT ILIAC ART, PERC APPROACH (06/01/15) EXTIRPATION OF MATTER FROM R FEM ART, PERC APPROACH (01/15/17) FLUOROSCOPY OF R LOW EXTREM ART USING L OSM CONTRAST (03/27/17) FLUOROSCOPY OF SUPERIOR VENA CAVA, GUIDANCE (07/06/15) INSERT VAD RESERVOIR IN CHEST SUBCU/FASCIA, PERC (04/22/18) INSERTION OF INFUSION DEV INTO SUP VENA CAVA, PERC APPROACH (04/22/18) INTRODUCE LOCAL ANESTH IN PERIPH NRV, PLEXI, PERC (11/16/15) INTRODUCE OTH ANTI-INFECT IN CENTRAL VEIN, PERC (03/27/17) INTRODUCE OTH THROMBOLYTIC IN PERIPH VEIN, PERC (06/01/15) REPAIR BLADDER, OPEN APPROACH (11/16/15) TRANSFUSE NONAUT RED BLOOD CELLS IN PERIPH VEIN, PERC (04/22/18) ULTRASONOGRAPHY OF SUPERIOR VENA CAVA, GUIDANCE (03/27/17) Family History: States: Unknown Family Hx - Social History Hx Tobacco Use: Yes Hx Alcohol Use: Yes (1 BOTTLE VODKA DAILY) Hx Substance Use: Yes (SMOKE WEEDS) - Immunization History Hx Tetanus Toxoid Vaccination: Yes Hx Influenza Vaccination: Yes Hx Pneumococcal Vaccination: No Review Of Systems Except As Marked, All Systems Reviewed And Found Negative. Constitutional: Negative for: Fever, Chills Eyes: Negative for: Vision Change Cardiovascular: Negative for: Chest Pain Respiratory: Positive for: Cough, Shortness of Breath (occasional), Sputum Gastrointestinal: Negative for: Nausea, Vomiting, Abdominal Pain, Diarrhea Neurological: Negative for: Weakness, Numbness, Headache, Dizziness Physical Exam - Physical Exam Appears: Non-toxic, No Acute Distress Skin: Warm, Dry Head: Atraumatic, Normacephalic Eye(s): bilateral: PERRL, EOMI, Conjunctiva Pale Oral Mucosa: Moist Throat: Normal (Oropharynx clear), No Erythema, No Exudate Neck: Normal ROM Chest: Symmetrical Cardiovascular: Rhythm Regular, No Murmur Respiratory: Normal Breath Sounds, No Accessory Muscle Use Gastrointestinal/Abdominal: Soft, No Tenderness, No Distention Extremity: Deformity (Right BKA, Left AKA; Prosthesis on the right lower extremity) Extremity: Bilateral: Normal Color And Temperature Neurological/Psych: Oriented x3, Normal Speech, Normal Cranial Nerves ED Course And Treatment - Laboratory Results Result Diagrams: 05/08/18 11:52 05/08/18 11:52 Lab Results: Troponin I 0.0140 ng/mL (0.00-0.120) 05/08/18 11:52 NT-Pro-B Natriuret Pep 5710 pg/mL (0-900) H 05/08/18 11:52 Total Bilirubin 0.3 mg/dL (0.2-1.3) 05/08/18 11:52 AST 10 U/L (17-59) L D 05/08/18 11:52 ALT 11 U/L (21-72) L 05/08/18 11:52 Alkaline Phosphatase 65 U/L (38-126) 05/08/18 11:52 Total Protein 5.3 g/dL (6.3-8.3) L 05/08/18 11:52 Albumin 2.7 g/dL (3.5-5.0) L D 05/08/18 11:52 Globulin 2.6 gm/dL (2.2-3.9) 05/08/18 11:52 Albumin/Globulin Ratio 1.0 (1.0-2.1) 05/08/18 11:52 ECG: Interpreted By Me, Viewed By Me ECG Rhythm: Sinus Rhythm Interpretation Of ECG: Short MO interval. Normal QT and QRS, Normal axis. No ST elevations or depressions Rate From EC O2 Sat by Pulse Oximetry: 100 (RA) Pulse Ox Interpretation: Normal - Other Rad CXR X-Ray: Read By Radiologist Interpretation: Accession No. : [id number]. Patient Name / ID : NORBERTO MARCELINO / [id number]. Exam Date : 05/08/2018 12:22:20 ( Approved ). Study Comment : Sex / Age : M / 53Y. Creator : anita delgado. Dictator : Jhoana Stone MD. Laborer Carpentry Dock : Parts Data Writer : Jhoana Stone MD. Approver2 : Report Date : 05/08/2018 12:25:51. My Comment : . Date of service: 05/08/2018. PROCEDURE: CHEST RADIOGRAPH, 1 VIEW. HISTORY: SOB. COMPARISON: 04/23/2018. FINDINGS: Right-sided MediPort terminates at the cavoatrial junction. LUNGS: The lungs are well inflated and clear. There is airspace disease in the left lower lobe. PLEURA: Question of small effusions. No pneumothorax. CARDIOVASCULAR: There is mild cardiomegaly. There are aortic atherosclerotic calcifications present. OSSEOUS STRUCTURES: Within normal limits for the patient's age. VISUALIZED UPPER ABDOMEN: Normal. OTHER FINDINGS: None. IMPRESSION: Airspace disease in the left lower lobe may represent atelectasis or pneumonia. Suspect small effusions, worse on the left. Right-sided MediPort terminates at the cavoatrial junction. Medical Decision Making Medical Decision Making: Plan: - EKG - Chest x-ray - Repeat labs - Patient placed on back filler operator for observation Labs resulted. Notified of critically low mag, 1.0 mg/dL. Will giv IV mag sulfate. Ca 6.5 Patient also given 4.65 meq calcium gluconate in NS and started on IV zosyn. 12:[address] Lee, will admit patient for anemia, hypocalcemia, hypomagne semia, and pneumonia. Disposition Counseled Patient/Family Regarding: Studies Performed, Diagnosis - Disposition Disposition: HOSPITALIZED Disposition Time: 12:49 Condition: STABLE - Clinical Impression Clinical Impression: Anemia, Hypocalcemia, Hypomagnesemia, Pneumonia - Scribe Statement The provider has reviewed the documentation as recorded by the Consuelo Mcconnell Provider Attestation: All medical record entries made by the Jaylaibkaren were at my direction and persona lly dictated by me. I have reviewed the chart and agree that the record accurately reflects my personal performance of the history, physical exam, medical decision making, and the department course for this patient. I have also personally directed, reviewed, and agree with the discharge instructions and disposition. Decision To Admit - Pt Status Changed To: Hospital Disposition Of: Inpatient - Admit Certification Admit to Inpatient:: After my assessment, the patient will require hospitaliza tion for at least two midnights. This is because of the severity of symptoms shown, intensity of services needed, and/or the medical risk in this patient being treated as an outpatient. - InPatient: Physician Admission Certification: I certify that this patient requires 2 or more midnights of care for the following reason:: Severe anemia, hypocalcemia, hypomagnesemia, pneumonia - . Bed Request Type: Telemetry Patient Diagnosis: Anemia, Hypocalcemia, Hypomagnesemia, Pneumonia
[2018-05-08] MEDS ORDERED: Ipratropium 17 mcg/puff-200 puff/12.5 gm HFA Inh IH PRN (13:52)
[2018-05-08] MEDS ORDERED: Piperacillin/Tazobact 3.375 gm 100 ML IVPB ONE (14:08)
[2018-05-08] MEDS: Oxycodone/Acetaminophen 5/325 mg Tab PO PRN ×2 (14:38→20:41)
[2018-05-08] MEDS ORDERED: Oxycodone/Acetaminophen 5/325 mg Tab ONE (14:39)
[2018-05-08] MEDS ORDERED: Lidocaine 5% Patch TD ONE (14:43)
[2018-05-08] MEDS: Lidocaine 5% Patch TD SCH (14:45)
[2018-05-08] MEDS ORDERED: Piperacillin/Tazobact 3.375 GM in Sodium Chloride 100 ML IVPB SCH (16:00)
[2018-05-08] MEDS: (Novolog) Insulin Aspart, Recombinant 100 u/ml 10 ml vial SC SCH ×2 (18:05→21:45)
[2018-05-08] MEDS: Piperacillin/Tazobact 3.375 GM in Sodium Chloride 100 ML IVPB SCH (20:41)
[2018-05-08] MEDS: guaiFENesin 600 mg ER Tab PO SCH (21:43)
[2018-05-08] MEDS: (Lantus) Insulin Glargine, Recombinant SC SCH (21:45)
[2018-05-09] MEDS: Piperacillin/Tazobact 3.375 GM in Sodium Chloride 100 ML IVPB SCH ×3 (01:09→13:24)
[2018-05-09] MEDS: Oxycodone/Acetaminophen 5/325 mg Tab PO PRN ×4 (04:45→22:14)
[2018-05-09] MEDS ORDERED: guaiFENesin 600 mg ER Tab PO ONE (05:01)
[2018-05-09] MEDS: (Novolog) Insulin Aspart, Recombinant 100 u/ml 10 ml vial SC SCH ×3 (07:48→22:21)
[2018-05-09 09:33] LABS: BASO % 0.4 % (0.0-2.0); EOS # 0.1 K/uL (0.0-0.7); EOS % 2.3 % (0.0-4.0); HEMOGLOBIN 8.6 g/dL (12.0-18.0); LYMPH # 0.3 K/uL (1.0-4.3); LYMPH % 7.1 % (20.0-40.0); MEAN CELL VOLUME 94.3 fL (80.0-94.0); MEAN CORPUSCULAR HEMOGLOBIN 32.2 pg (27.0-31.0); MEAN CORPUSCULAR HGB CONC 34.1 g/dL (33.0-37.0); MEAN PLATELET VOLUME 8.9 fL (7.2-11.7); MONO # 0.3 K/uL (0.0-0.8); MONO % 6.9 % (0.0-10.0); NEUT % 83.3 % (50.0-75.0); PLATELET COUNT 111 K/uL (130-400); RBC 2.66 Mil/uL (4.40-5.90); RED CELL DISTRIBUTION WIDTH 16.4 % (11.5-14.5); WHITE BLOOD COUNT 4.8 K/uL (4.8-10.8)
[2018-05-09] MEDS: Enoxaparin 40 mg Syringe SC SCH (10:02)
[2018-05-09] MEDS: guaiFENesin 600 mg ER Tab PO SCH ×3 (10:12→18:01)
--- NOTE | 2018-05-09 10:43 | CP.PCM.CON ---
History of Present Illness - History of Present Illness History of Present Illness: Reason for consultation: Shortness of breath 53-year-old male with history of COPD, diabetes, throat cancer on chemotherapy was sent by oncologist for anemia and hypocalcemia/hypomagnesemia. Patient complaining of on and off shortness of breath and cough. Denies fever chills, denies chest pain. Cough is productive of clear mucus Review of Systems - Review of Systems All systems: reviewed and no additional remarkable complaints except (Shortness of breath and cough) Past Patient History - Infectious Disease Hx of Infectious Diseases: None - Past Medical History & Family History Past Medical History?: Yes - Past Social History Smoking Status: Former Smoker - CARDIAC Hx Hypercholesterolemia: Yes Hx Hypertension: Yes - PULMONARY Hx Asthma: Yes Hx Chronic Obstructive Pulmonary Disease (COPD): Yes - NEUROLOGICAL Hx Neurological Disorder: No - HEENT Hx HEENT Problems: No - RENAL Hx Chronic Kidney Disease: No - ENDOCRINE/METABOLIC Hx Endocrine Disorders: Yes Hx Diabetes Mellitus Type 2: Yes - HEMATOLOGICAL/ONCOLOGICAL Hx Blood Disorders: Yes Hx Cancer: Yes (THROAT CANCER) Hx Chemotherapy: Yes (AND RADIATION) - INTEGUMENTARY Hx Dermatological Problems: Yes Other/Comment: PT HAS BROWN SPOTS ON ARMS AND BACK STATES HE HAS SKIN 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 - MUSCULOSKELETAL/RHEUMATOLOGICAL Hx Falls: No - GASTROINTESTINAL Hx Diverticulitis: Yes Hx Gastritis: Yes - GENITOURINARY/GYNECOLOGICAL Hx Genitourinary Disorders: Yes Hx Urinary Tract Infection: Yes - PSYCHIATRIC Hx Substance Use: No - SURGICAL HISTORY Hx Surgeries: Yes Hx Amputation: Yes (LEFT AKA, RIGHT BTK) Hx Angiogram: Yes Hx Cardiac Catheterization: Yes Hx Femoral-Popliteal Bypass Graft: Yes (X3) Hx Vascular Surgery: Yes Other/Comment: Vascular bypass surgery femoral bilateral X6. Left AKA, right BKA. wears prosthetic device to right leg. - ANESTHESIA Hx Anesthesia: Yes Hx Anesthesia Reactions: No Hx Malignant Hyperthermia: No Meds Allergies/Adverse Reactions: Allergies Allergy/AdvReac Type Severity Reaction Status Date / Time No Known Allergies Allergy Verified 05/08/18 11:09 - Medications Medications: Current Medications Acetaminophen (Tylenol 325mg Tab) 650 mg PO Q6 PRN PRN Reason: Pain, Mild (1-3) Carvedilol (Coreg) 25 mg PO BID MARCELL Last Admin: 05/09/18 10:02 Dose: 25 mg Clopidogrel Bisulfate (Plavix) 75 mg PO DAILY [facility] Last Admin: 05/09/18 10:02 Dose: 75 mg Enoxaparin Sodium (Lovenox) 40 mg SC DAILY [facility] Last Admin: 05/09/18 10:02 Dose: 40 mg Guaifenesin (Mucinex La) 600 mg PO TID [facility] Last Admin: 05/09/18 10:12 Dose: 600 mg Piperacillin Sod/Tazobactam (Sod 3.375 gm/ Sodium Chloride) 100 mls @ 200 mls/hr IVPB Q6H [facility]; Protocol Last Admin: 05/09/18 09:00 Dose: 200 mls/hr Insulin Aspart (Novolog) 0 unit SC ACHS [facility]; Protocol Last Admin: 05/09/18 07:48 Dose: Not Given Insulin Glargine (Lantus) 35 unit SC Q12 [facility] Last Admin: 05/08/18 21:45 Dose: Not Given Ipratropium [place] (Atrovent Hfa) 2 puff IH RQ6 PRN PRN Reason: Shortness of Breath Last Admin: 05/09/18 05:07 Dose: 2 puff Lidocaine (Lidoderm) 1 ea TD Q24H [facility] Last Admin: 05/08/18 14:45 Dose: 1 ea Losartan Potassium (Cozaar) 25 mg PO DAILY [facility] Last Admin: 05/09/18 10:02 Dose: 25 mg Ondansetron HCl (Zofran Tab) 4 mg PO Q8H [facility] Last Admin: 05/09/18 05:19 Dose: 4 mg Oxycodone/Acetaminophen (Percocet 5/325 Mg Tab) 1 tab PO Q4H PRN PRN Reason: Pain, moderate (4-7) Stop: 05/11/18 13:58 Last Admin: 05/09/18 10:12 Dose: 1 tab Rosuvastatin Calcium (Crestor) 5 mg PO HS [facility] Last Admin: 05/08/18 21:43 Dose: 5 mg Sennosides (Senokot Tab) 8.6 mg PO DAILY [facility] Thiamine HCl (Vitamin B1 Tab) 100 mg PO DAILY [facility] Last Admin: 05/09/18 10:02 Dose: 100 mg Zolpidem Tartrate (Ambien) 5 mg PO HS PRN PRN Reason: Insomnia Last Admin: 05/09/18 00:17 Dose: 5 mg Physical Exam - Head Exam Head Exam: ATRAUMATIC, NORMOCEPHALIC - ENT Exam ENT Exam: Mucous Membranes Moist - Neck Exam Neck exam: Positive for: Normal Inspection - Respiratory Exam Respiratory Exam: Rhonchi, Wheezes - Cardiovascular Exam Cardiovascular Exam: REGULAR RHYTHM - GI/Abdominal Exam GI & Abdominal Exam: Normal Bowel Sounds Results - Vital Signs Recent Vital Signs: Last Vital Signs Temp 98.3 F 05/09/18 08:12 Pulse 81 05/09/18 08:12 Resp 20 05/09/18 08:12 BP 121/71 05/09/18 10:02 Pulse Ox 99 05/09/18 08:12 - Labs Result Diagrams: 05/09/18 09:21 05/08/18 11:52 Labs: Laboratory Results - last 24 hr 05/08/18 05/08/18 05/08/18 11:52 11:52 11:52 WBC 4.5 L RBC 2.08 L Hgb 6.9 L D Hct 19.9 L MCV 96.1 H D MCH 33.0 H MCHC 34.4 RDW 16.6 H Plt Count 115 L D MPV 9.1 Neut % (Auto) 80.6 H Lymph % (Auto) 9.8 L Blount % (Auto) 7.4 Eos % (Auto) 1.6 Baso % (Auto) 0.6 Neut # (Auto) 3.6 Lymph # (Auto) 0.4 L Blount # (Auto) 0.3 Eos # (Auto) 0.1 Baso # (Auto) 0.0 Neutrophils % (Manual) 80 H Band Neutrophils % 6 H Lymphocytes % (Manual) 7 L Monocytes % (Manual) 7 Platelet Estimate Slightly decreased L Anisocytosis (manual) Slight Stomatocytes Slight Sodium 136 Potassium 3.7 Chloride 99 Carbon Dioxide 29 Anion Gap 12 BUN 10 Creatinine 1.0 Est GFR ( Amer) > 60 Est GFR (Non-Af Amer) > 60 POC Glucose (mg/dL) Random Glucose 101 D Calcium 6.5 L Ionized Calcium 3.9 L Magnesium 1.0 L* D Total Bilirubin 0.3 AST 10 L D ALT 11 L Alkaline Phosphatase 65 Troponin I 0.0140 NT-Pro-B Natriuret Pep 5710 H Total Protein 5.3 L Albumin 2.7 L D Globulin 2.6 Albumin/Globulin Ratio 1.0 Blood Type Antibody Screen 05/08/18 05/08/18 05/08/18 13:11 18:01 21:53 WBC RBC Hgb Hct MCV MCH MCHC RDW Plt Count MPV Neut % (Auto) Lymph % (Auto) Blount % (Auto) Eos % (Auto) Baso % (Auto) Neut # (Auto) Lymph # (Auto) Blount # (Auto) Eos # (Auto) Baso # (Auto) Neutrophils % (Manual) Band Neutrophils % Lymphocytes % (Manual) Monocytes % (Manual) Platelet Estimate Anisocytosis (manual) Stomatocytes Sodium Potassium Chloride Carbon Dioxide Anion Gap BUN Creatinine Est GFR ( Amer) Est GFR (Non-Af Amer) POC Glucose (mg/dL) 166 H 132 H Random Glucose Calcium Ionized Calcium Magnesium Total Bilirubin AST ALT Alkaline Phosphatase Troponin I NT-Pro-B Natriuret Pep Total Protein Albumin Globulin Albumin/Globulin Ratio Blood Type A POSITIVE Antibody Screen Negative 05/09/18 09:21 WBC 4.8 RBC 2.66 L Hgb 8.6 L Hct 25.1 L MCV 94.3 H MCH 32.2 H MCHC 34.1 RDW 16.4 H Plt Count 111 L MPV 8.9 Neut % (Auto) 83.3 H Lymph % (Auto) 7.1 L Blount % (Auto) 6.9 Eos % (Auto) 2.3 Baso % (Auto) 0.4 Neut # (Auto) 4.0 Lymph # (Auto) 0.3 L Blount # (Auto) 0.3 Eos # (Auto) 0.1 Baso # (Auto) 0.0 Neutrophils % (Manual) Band Neutrophils % Lymphocytes % (Manual) Monocytes % (Manual) Platelet Estimate Anisocytosis (manual) Stomatocytes Sodium Potassium Chloride Carbon Dioxide Anion Gap BUN Creatinine Est GFR ( Amer) Est GFR (Non-Af Amer) POC Glucose (mg/dL) Random Glucose Calcium Ionized Calcium Magnesium Total Bilirubin AST ALT Alkaline Phosphatase Troponin I NT-Pro-B Natriuret Pep Total Protein Albumin Globulin Albumin/Globulin Ratio Blood Type Antibody Screen Assessment & Plan (1) COPD (chronic obstructive pulmonary disease) Assessment and Plan: Nebulizer treatment Budesonide Transfuse packed RBCs Status: Chronic (2) Anemia Status: Acute
[2018-05-09] MEDS: (Lantus) Insulin Glargine, Recombinant SC SCH (10:45)
[2018-05-09 11:25] LABS: BANDS 4 % (0-2); EOSINOPHIL 5 % (0-4); LYMPHOCYTE 4 % (20-40); MONOCYTE 4 % (0-10); NEUTROPHIL 83 % (50-75); TOTAL CELLS COUNTED 100
[2018-05-09 11:26] LABS: ANISOCYTOSIS SLIGHT; HYPOCHROMIC SLIGHT; PLATELET ESTIMATE SLIGHTLY DECREASED (NORMAL); POIKILOCYTOSIS SLIGHT
[2018-05-09 11:43] LABS: ALBUMIN 2.7 g/dL (3.5-5.0); ALT/SGPT 9 U/L (21-72); AST/SGOT 10 U/L (17-59); BLOOD UREA NITROGEN 8 mg/dL (9-20); GFR NON-AFRICAN AMERICAN > 60
[2018-05-09 12:59] VITALS: RESP 20
[2018-05-09] MEDS: Lidocaine 5% Patch TD SCH (13:41)
[2018-05-09] MEDS: Budesonide 0.5 mg/2 ml Inhal Susp UD INH SCH (20:16)
[2018-05-09] MEDS: Albuterol-Ipratrop 3 mg / 0.5 (3 ml) UD INH SCH (20:16)
[2018-05-10] MEDS: Piperacillin/Tazobact 3.375 GM in Sodium Chloride 100 ML IVPB SCH ×5 (01:40→19:41)
[2018-05-10 01:49] VITALS: TEMP 98.4
[2018-05-10] MEDS: Albuterol-Ipratrop 3 mg / 0.5 (3 ml) UD INH SCH ×5 (02:34→19:51)
--- NOTE | 2018-05-10 04:31 | CP.PCM.PN ---
Subjective - Date & Time of Evaluation Date of Evaluation: 05/09/18 Time of Evaluation: 11:00 - Subjective Subjective: dictated Objective - Vital Signs/Intake and Output Vital Signs (last 24 hours): Temp Pulse Resp BP Pulse Ox 98.4 F 78 20 147/80 98 05/09/18 23:50 05/09/18 23:50 05/09/18 23:50 05/09/18 23:50 05/09/18 23:50 Intake and Output: 05/09/18 05/10/18 18:59 06:59 Intake Total 645 Output Total 1000 Balance -355 - Medications Medications: Current Medications Acetaminophen (Tylenol 325mg Tab) 650 mg PO Q6 PRN PRN Reason: Pain, Mild (1-3) Last Admin: 05/10/18 02:23 Dose: 650 mg Albuterol/Ipratropium (Duoneb 3 Mg/0.5 Mg (3 Ml) Ud) 3 ml INH RQ6 [facility] Last Admin: 05/10/18 02:34 Dose: Not Given Budesonide (Pulmicort Respules) 0.5 mg INH RQ12 [facility] Last Admin: 05/09/18 20:16 Dose: 0.5 mg Carvedilol (Coreg) 25 mg PO BID [facility] Last Admin: 05/09/18 18:02 Dose: 25 mg Clopidogrel Bisulfate (Plavix) 75 mg PO DAILY [facility] Last Admin: 05/09/18 10:02 Dose: 75 mg Enoxaparin Sodium (Lovenox) 40 mg SC DAILY [facility] Last Admin: 05/09/18 10:02 Dose: 40 mg Guaifenesin (Mucinex La) 600 mg PO TID [facility] Last Admin: 05/09/18 18:01 Dose: 600 mg Piperacillin Sod/Tazobactam (Sod 3.375 gm/ Sodium Chloride) 100 mls @ 200 mls/hr IVPB Q6H [facility]; Protocol Last Admin: 05/10/18 01:40 Dose: 200 mls/hr Insulin Aspart (Novolog) 0 unit SC ACHS [facility]; Protocol Last Admin: 05/09/18 22:21 Dose: Not Given Insulin Glargine (Lantus) 35 unit SC Q12 [facility] Last Admin: 05/09/18 10:45 Dose: Not Given Lidocaine (Lidoderm) 1 ea TD Q24H [facility] Last Admin: 05/09/18 13:41 Dose: 1 ea Losartan Potassium (Cozaar) 25 mg PO DAILY [facility] Last Admin: 05/09/18 10:02 Dose: 25 mg Ondansetron HCl (Zofran Tab) 4 mg PO Q8H [facility] Last Admin: 05/09/18 22:15 Dose: 4 mg Oxycodone/Acetaminophen (Percocet 5/325 Mg Tab) 1 tab PO Q4H PRN PRN Reason: Pain, moderate (4-7) Stop: 05/11/18 13:58 Last Admin: 05/09/18 22:14 Dose: 1 tab Rosuvastatin Calcium (Crestor) 5 mg PO HS [facility] Last Admin: 05/09/18 22:14 Dose: 5 mg Sennosides (Senokot Tab) 8.6 mg PO DAILY [facility] Last Admin: 05/09/18 10:48 Dose: Not Given Thiamine HCl (Vitamin B1 Tab) 100 mg PO DAILY [facility] Last Admin: 05/09/18 10:02 Dose: 100 mg Zolpidem Tartrate (Ambien) 5 mg PO HS PRN PRN Reason: Insomnia Last Admin: 05/09/18 22:15 Dose: 5 mg - Labs Labs: 05/09/18 09:21 05/09/18 09:21
[2018-05-10] MEDS: Oxycodone/Acetaminophen 5/325 mg Tab PO PRN ×4 (06:47→20:08)
[2018-05-10] MEDS: (Novolog) Insulin Aspart, Recombinant 100 u/ml 10 ml vial SC SCH ×4 (08:04→18:38)
[2018-05-10] MEDS: Budesonide 0.5 mg/2 ml Inhal Susp UD INH SCH ×2 (08:13→19:51)
[2018-05-10 08:48] VITALS: PULSE 77; O2SAT 100
--- NOTE | 2018-05-10 08:51 | PN ---
DATE: 05/10/2018 SUBJECTIVE: The patient is afebrile. He has less cough, less wheezing. No nausea, vomiting. He has chest congestion. He has pain in the throat, and he is for radiation therapy on Friday. PHYSICAL EXAMINATION: VITAL SIGNS: Blood pressure 112/60, pulse 74, respiratory rate 18, temperature 99. LUNGS: Bilateral scattered rales. No rhonchi. Decreased air entry. CARDIOVASCULAR SYSTEM: S1 and S2, regular. ABDOMEN: Soft, nontender. Bowel sounds are positive. ASSESSMENT: 1. Tracheobronchitis. 2. Anemia due to chemotherapy. Radiation therapy. 3. Type 2 diabetes. PLAN: Continue antibiotics. The patient is afebrile. Monitor the patient. Jagdeep Lee MD
[2018-05-10 09:23] LABS: BASO % 0.3 % (0.0-2.0); EOS # 0.1 K/uL (0.0-0.7); HEMOGLOBIN 11.5 g/dL (12.0-18.0); LYMPH # 0.2 K/uL (1.0-4.3); LYMPH % 4.9 % (20.0-40.0); MEAN CELL VOLUME 93.1 fL (80.0-94.0); MEAN CORPUSCULAR HGB CONC 34.4 g/dL (33.0-37.0); MEAN PLATELET VOLUME 9.1 fL (7.2-11.7); MONO # 0.3 K/uL (0.0-0.8); MONO % 6.6 % (0.0-10.0); NEUT # 4.2 K/uL (1.8-7.0); NEUT % 86.2 % (50.0-75.0); NRBC % 0.1 % (0.0-2.0); PLATELET COUNT 115 K/uL (130-400); RBC 3.58 Mil/uL (4.40-5.90); RED CELL DISTRIBUTION WIDTH 16.1 % (11.5-14.5); WHITE BLOOD COUNT 4.9 K/uL (4.8-10.8)
[2018-05-10 10:32] LABS: ALBUMIN 2.7 g/dL (3.5-5.0); ALT/SGPT 8 U/L (21-72); AST/SGOT 9 U/L (17-59); BLOOD UREA NITROGEN 7 mg/dL (9-20); CALCIUM 7.3 mg/dl (8.6-10.4); GFR NON-AFRICAN AMERICAN > 60
[2018-05-10] MEDS: Enoxaparin 40 mg Syringe SC SCH (10:45)
[2018-05-10] MEDS: guaiFENesin 600 mg ER Tab PO SCH ×3 (10:47→18:34)
[2018-05-10 10:52] VITALS: BP 119/69
[2018-05-10 11:13] LABS: NEUTROPHIL 83 % (50-75); PLASMACYTES 1 (0-0); TOTAL CELLS COUNTED 100
[2018-05-10 11:14] LABS: BANDS 3 % (0-2); EOSINOPHIL 2 % (0-4); LYMPHOCYTE 6 % (20-40); MONOCYTE 5 % (0-10)
[2018-05-10 11:15] LABS: ANISOCYTOSIS SLIGHT; LARGE PLATELETS PRESENT; PLATELET ESTIMATE SLIGHTLY DECREASED (NORMAL); POIKILOCYTOSIS SLIGHT
[2018-05-10] MEDS: (Lantus) Insulin Glargine, Recombinant SC SCH ×2 (12:37→16:20)
[2018-05-10] MEDS: Lidocaine 5% Patch TD SCH (14:03)
--- NOTE | 2018-05-10 15:25 | HP ---
CHIEF COMPLAINT: Weakness. HISTORY OF PRESENT ILLNESS: This is a 53-year-old male who is a chronic smoker. He quit smoking about a month ago. He has type 2 diabetes, on insulin. He has hypertension, hyperlipidemia. He has bilateral lower extremity amputation due to peripheral arterial disease with a history of smoking, diabetes, and in his usual status of health. He is wheelchair bound, and he is home bound, and he is currently dependent on his family member for activities of daily living. He is compliant with diet, medication, and followup. Currently, he is undergoing radiation and chemotherapy, and the patient was alright until the day of admission. He was evaluated by the oncologist, Dr. Osborne, and the patient's hemoglobin was low. He had facial swelling and puffiness, and he was brought to the hospital, and he was hospitalized. The patient has cough, congestion, wheezing, thick yellow sputum production, chest pain. Chest pain upon coughing, chest pain upon deep inspiration, generalized weakness, dyspnea on exertion, and he has pain in the throat. He has pain in the neck. He has radiation therapy going on in his neck. He has fever, chills, rigors. He has generalized weakness. He denies any history of polyuria, polydipsia, polyphagia. He denies any history of hematuria, pyuria. He denies any history of sneezing, itchy eyes, itchy nose. He denies any history of trauma, fall, loss of consciousness. There is no history of seizure-like activity. He denies any tingling, numbness, paresthesias. There is no history of trauma or fall. ALLERGIES: UNKNOWN ALLERGIES. CURRENT MEDICATIONS: He is on insulin, Toprol XL, losartan, Lipitor, aspirin, DuoNeb unit dose via nebulizer. SOCIAL HISTORY: He recently quit smoking about a month ago, and he drinks a lot . He lives with his son and he is on wheelchair, and he is partially dependent. FAMILY HISTORY: Negative for premature coronary artery disease or congenital anemia. PHYSICAL EXAMINATION: GENERAL: A middle aged male, in distress with weakness. He has facial swelling. VITAL SIGNS: Blood pressure was 122/68, pulse 78, respiratory rate 22, temperature 99. SKIN: Dry, pale, poorly . No bruises. No purpura. No petechiae. HEENT: Atraumatic, normocephalic. Positive pallor. Negative jaundice. Extraocular movements are intact. Periorbital swelling. Oral cavity, poor oral hygiene. CHEST WALL: Bilateral symmetrical expansion. No tenderness. LUNGS: No rales. No rhonchi. CARDIOVASCULAR SYSTEM: PMI not localized. S1 and S2 ABDOMEN: Soft, nontender. Bowel sounds are positive. . LABORATORY DATA: . ASSESSMENT: 1. . 2. . 3. . 4. Type 2 diabetes, on insulin. 5. Hyperlipidemia. PLAN: Admit. Detailed orders are written. Seen and examined. Jagdeep Lee MD
--- NOTE | 2018-05-10 23:04 | CP.PCM.DIS ---
Provider - Provider Date of Admission: 05/08/18 12:53 Attending physician: Jagdeep Lee MD Consults: 05/08/18 13:56 Hematology Oncology Consult Routine Comment: Consulting Provider: Amber Osborne Consulting Physician: Amber Osborne Reason for Consult: ca Pulmonology Consult Routine Comment: Consulting Provider: Quan Blair Consulting Physician: Quan Blair Reason for Consult: copd 05/08/18 18:21 Nursing Referral for Palliative Care Routine Comment: Physician Instructions: Reason For Exam: score 8 05/08/18 18:38 Social Work Referral Routine Comment: ROUTINE Physician Instructions: ROUTINE Reason For Exam: KATARINA 8 Time Spent in preparation of Discharge (in minutes): 30 Hospital Course - Lab Results Lab Results: Micro Results 05/08/18 13:30 Blood Blood Culture - Preliminary NO GROWTH AFTER 48 HOURS 05/08/18 13:00 Blood Blood Culture - Preliminary NO GROWTH AFTER 48 HOURS Most Recent Lab Values WBC 4.9 K/uL (4.8-10.8) 05/10/18 09:11 RBC 3.58 Mil/uL (4.40-5.90) L 05/10/18 09:11 Hgb 11.5 g/dL (12.0-18.0) L D 05/10/18 09:11 Hct 33.3 % (35.0-51.0) L 05/10/18 09:11 MCV 93.1 fL (80.0-94.0) 05/10/18 09:11 MCH 32.0 pg (27.0-31.0) H 05/10/18 09:11 MCHC 34.4 g/dL (33.0-37.0) 05/10/18 09:11 RDW 16.1 % (11.5-14.5) H 05/10/18 09:11 Plt Count 115 K/uL (130-400) L 05/10/18 09:11 MPV 9.1 fL (7.2-11.7) 05/10/18 09:11 Neut % (Auto) 86.2 % (50.0-75.0) H 05/10/18 09:11 Lymph % (Auto) 4.9 % (20.0-40.0) L 05/10/18 09:11 [place] % (Auto) 6.6 % (0.0-10.0) 05/10/18 09:11 Eos % (Auto) 2.0 % (0.0-4.0) 05/10/18 09:11 Baso % (Auto) 0.3 % (0.0-2.0) 05/10/18 09:11 Neut # (Auto) 4.2 K/uL (1.8-7.0) 05/10/18 09:11 Lymph # (Auto) 0.2 K/uL (1.0-4.3) L 05/10/18 09:11 [place] # (Auto) 0.3 K/uL (0.0-0.8) 05/10/18 09:11 Eos # (Auto) 0.1 K/uL (0.0-0.7) 05/10/18 09:11 Baso # (Auto) 0.0 K/uL (0.0-0.2) 05/10/18 09:11 Neutrophils % (Manual) 83 % (50-75) H 05/10/18 09:11 Band Neutrophils % 3 % (0-2) H 05/10/18 09:11 Lymphocytes % (Manual) 6 % (20-40) L 05/10/18 09:11 Monocytes % (Manual) 5 % (0-10) 05/10/18 09:11 Eosinophils % (Manual) 2 % (0-4) 05/10/18 09:11 Plasma Cell % (Manual) 1 (0-0) H 05/10/18 09:11 Platelet Estimate Slightly decreased (NORMAL) L 05/10/18 09:11 Large Platelets Present 05/10/18 09:11 Hypochromasia (manual) Slight 05/09/18 09:21 Poikilocytosis (manual Slight 05/10/18 09:11 Anisocytosis (manual) Slight 05/10/18 09:11 Stomatocytes Slight 05/08/18 11:52 Sodium 136 mmol/L (132-148) 05/10/18 09:11 Potassium 3.8 mmol/L (3.6-5.2) 05/10/18 09:11 Chloride 98 mmol/L (98-107) 05/10/18 09:11 Carbon Dioxide 28 mmol/L (22-30) 05/10/18 09:11 Anion Gap 13 (10-20) 05/10/18 09:11 BUN 7 mg/dL (9-20) L 05/10/18 09:11 Creatinine 1.2 mg/dL (0.8-1.5) 05/10/18 09:11 Est GFR ( Amer) > 60 05/10/18 09:11 Est GFR (Non-Af Amer) > 60 05/10/18 09:11 POC Glucose (mg/dL) 87 mg/dL (65-110) 05/10/18 17:23 Random Glucose 104 mg/dL (75-110) 05/10/18 09:11 Calcium 7.3 mg/dl (8.6-10.4) L 05/10/18 09:11 Ionized Calcium 3.9 mg/dL (4.80-5.60) L 05/08/18 11:52 Phosphorus 4.0 mg/dL (2.5-4.5) 05/09/18 09:21 Magnesium 2.4 mg/dL (1.6-2.3) H 05/09/18 09:21 Total Bilirubin 0.4 mg/dL (0.2-1.3) 05/10/18 09:11 AST 9 U/L (17-59) L 05/10/18 09:11 ALT 8 U/L (21-72) L 05/10/18 09:11 Alkaline Phosphatase 70 U/L (38-126) 05/10/18 09:11 Troponin I 0.0140 ng/mL (0.00-0.120) 05/08/18 11:52 NT-Pro-B Natriuret Pep 5710 pg/mL (0-900) H 05/08/18 11:52 Total Protein 5.3 g/dL (6.3-8.3) L 05/10/18 09:11 Albumin 2.7 g/dL (3.5-5.0) L 05/10/18 09:11 Globulin 2.6 gm/dL (2.2-3.9) 05/10/18 09:11 Albumin/Globulin Ratio 1.0 (1.0-2.1) 05/10/18 09:11 Blood Type A POSITIVE 05/08/18 13:11 Antibody Screen Negative 05/08/18 13:11 Discharge Exam - Head Exam Head Exam: ATRAUMATIC, NORMOCEPHALIC Discharge Plan - Follow Up Plan Condition: STABLE Disposition: HOME/ ROUTINE Instructions: Pneumonia, Adult (DC), Anemia of Chronic Disease (DC), Low Magnesium Level (DC), Hypocalcemia (DC)
--- NOTE | 2018-05-11 08:44 | CON ---
DATE: 05/09/2018 ONCOLOGY CONSULTATION HISTORY OF PRESENT ILLNESS: This is a 53-year-old man with throat cancer and severe anemia. The patient is being treated by Dr. Osborne at the office. He is getting weekly chemotherapy with [place]-based regimen, and he is also getting radiation therapy. He has another 9 treatments of radiation therapy to go but he has been having severe anemia with his treatments, and his hemoglobin has dropped down to about 6.9. He was feeling rather weak. PHYSICAL EXAMINATION: SKIN: No petechiae. No bruises. HEENT: Anicteric. NODES: Nonpalpable in the axillary, cervical, supraclavicular, or inguinal regions. LUNGS: Clear at present. No vertebral tenderness. HEART: S1 and S2. ABDOMEN: Shows no liver, no spleen, no tenderness. 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 CENTRAL NERVOUS SYSTEM: No focal findings. ASSESSMENT AND PLAN: The patient does still have sore throat, but he is able to manage with that. We gave him one unit of packed cells gave him second unit of packed cells. Aside magnesium or calcium overload, he is receiving the magnesium and calcium infusions. At this point after the second unit of packed cells, it is going bottom of 10. He will be at home certainly before Friday as his radiation therapy is going to continue on Friday when Dr. Sosa be here for the chemotherapy Friday or . Brigido Cervantes MD
--- NOTE | 2018-05-11 14:56 | CARD ---
APPROVED REPORT Date of service: 05/08/2018 EKG Measurement Heart [id number] <Conclusion> Poor data quality, interpretation may be adversely affected Sinus rhythm with short [place] Otherwise normal ECG
== END 2018-05-10 20:21 | disposition home or self-care (01) | DRG 812 ==
LOC: C.ER 11:01 → C.9E 12:53 → C.6T 15:41
PROVIDERS: ADMIT Internal Medicine; ATTEND Internal Medicine
DX: D64.81 Anemia due to antineoplastic chemotherapy (principal); E78.5 Hyperlipidemia, unspecified; E83.42 Hypomagnesemia; F17.200 Nicotine dependence, unspecified, uncomplicated; I10 Essential (primary) hypertension; T45.1X5A Adverse effect of antineoplastic and immunosuppressive drugs, initial encounter; Z79.4 Long term (current) use of insulin; E11.51 Type 2 diabetes mellitus with diabetic peripheral angiopathy without gangrene; Z99.3 Dependence on wheelchair; C14.0 Malignant neoplasm of pharynx, unspecified; Z89.511 Acquired absence of right leg below knee; Z89.612 Acquired absence of left leg above knee; J40 Bronchitis, not specified as acute or chronic

== ENCOUNTER 2018-06-23 12:29 | Outpatient (CLI) | payer MEDICARE, MEDICAID | END 2018-06-23 12:30 | disposition home or self-care (01) | LOC: C.PAT 12:29 | DX: H25.043 Posterior subcapsular polar age-related cataract, bilateral (principal) ==

== ENCOUNTER 2018-07-01 06:16 | Day surgery (SDC) | payer MEDICARE, MEDICAID ==
[~2018-07-01 06:16] MED LIST: Ciprofloxacin 0.3% OPTH SOLN OD SCH; Cyclopentolate 1% Opth (2 ml) OD SCH; Ketorolac Tromethamine 0.5% Opth Soln (3 ml) OD SCH; Lactated Ringer's 500 ML IV ONE; Phenylephrine 2.5% Opht Soln OD SCH; Tropicamide 1% Opht SOLUTION OD SCH
[2018-07-01] MEDS ORDERED: Carbachol 0.01% IO ONE (07:27)
[2018-07-01] MEDS ORDERED: Povidone Iodine Ophthalmic 5% Soln ONE (07:27)
[2018-07-01] MEDS ORDERED: Tobramycin/Dexamethasone OPHT OINT ONE (07:28)
[2018-07-01] MEDS ORDERED: Hyaluronidase Human, Recombi 150 U/ML VIAL ONE (07:28)
[2018-07-01] MEDS ORDERED: Lidocaine 2% MPF (5 ml) Inj ONE (07:30)
[2018-07-01 07:42] VITALS: BP 112/72
[2018-07-01] MEDS ORDERED: Lactated Ringer's 500 ML IV ONE (08:14)
[2018-07-01] MEDS ORDERED: Midazolam 2 MG/2 ML VIAL ONE (08:46)
[2018-07-01] MEDS ORDERED: Hyaluronate Sodium 10 mg/ml Ophth Syringe ONE (09:22)
[2018-07-01] MEDS ORDERED: Chondroitin/Hyaluronate Opth Syringe KIT (0.55 ml-0.5 ml) IO ONE (09:35)
[2018-07-01 09:59] VITALS: RESP 18; TEMP 97; O2SAT 100
[2018-07-01 10:21] VITALS: PULSE 64
--- NOTE | 2018-07-01 19:08 | OP ---
PROCEDURE DATE: 07/01/2018 PREOPERATIVE DIAGNOSIS: Mature cataract right eye. POSTOPERATIVE DIAGNOSIS: Mature cataract right eye. OPERATIVE PROCEDURE: Phacoemulsification of right eye, insertion of posterior chamber lens implant. SURGEON: Nash Burciaga MD ANESTHESIA TYPE: Local with IV sedation. PROCEDURE: The patient was brought into the operating room, placed in supine position, prepped and draped in the usual fashion for ophthalmic surgery. Lid speculum was inserted, lids and exposing globe. A side-port incision was made superiorly and inferiorly with a disposable sharp blade. Anterior chamber was filled with Viscoat. A near clear corneal incision was made temporally with a 2.75-mm keratome. Capsulorrhexis was then performed with Utrata forceps. Hydrodissection carried out with balanced salt solution. Nucleus was phacoemulsified. Remaining cortical fragments were removed with a split irrigation and aspiration system. The capsular sac was filled with Provisc. A posterior chamber lens was then injected into the capsular sac and rotated into horizontal position. Provisc was aspirated out of the anterior chamber. The pupil was constricted with Miochol. The wound was found to be watertight. Topical Betadine, Timoptic, and TobraDex ointment and pressure patch were applied. The patient tolerated the procedure well. Nash Burciaga MD
== END 2018-07-01 10:38 | disposition home or self-care (01) ==
LOC: C.SDS 06:16
PROVIDERS: ATTEND Ophthalmology
DX: H26.9 Unspecified cataract (principal)
CPT/HCPCS: 66984; 82948; J2250; J3010; J3470; J7120